=== PATIENT | female | born 1980 | race Caucasian/White ===

== ENCOUNTER 2021-02-13 09:43 | Day surgery (SDC) | payer BC ==
[2021-02-13] MEDS ORDERED: Ringers Lactate 1,000 ML IV ONE (10:21)
[2021-02-13] MEDS ORDERED: VANCOMYCIN 1 GM in NA CHLORIDE 0.9% 250 ML IVPB ONE (11:00)
[2021-02-13] MEDS ORDERED: ROCURONIUM 50 MG/5 ML VIAL IV ONE (12:18)
[2021-02-13] MEDS ORDERED: MIDAZOLAM HCL 2 MG/2 ML INJ ONE (12:18)
[2021-02-13] MEDS ORDERED: propofoL 200 MG/20 ML VIAL IV ONE (12:18)
[2021-02-13] MEDS ORDERED: ONDANSETRON 4 MG/2 ML VIAL ONE (12:18)
[2021-02-13] MEDS ORDERED: dexAMETHasone 10 MG/ML VIAL ONE (12:18)
[2021-02-13] MEDS ORDERED: LIDOCAINE 2% MPF 5 ML VIAL ONE (12:18)
[2021-02-13] MEDS ORDERED: FENTANYL CITR 250 MCG/5 ML ONE (12:18)
[2021-02-13] MEDS ORDERED: ACETAMINOPHEN 500 MG TAB ONE (14:32)
[2021-02-13] MEDS ORDERED: ACETAMINOPHEN 500 MG TAB PO ONE (14:33)
[2021-02-13] MEDS ORDERED: LIDOCAINE 1% W/EPI 1:100,000 MDV 20 ML VIAL ONE (15:13)
[2021-02-13] MEDS ORDERED: GLYCOPYRROLATE 0.2 MG/ML SYR ONE (15:47)
[2021-02-13] MEDS ORDERED: EPHEDRINE SULF 50 MG/ML VIAL ONE (15:52)
[2021-02-13 17:37] VITALS: BP 128/74; TEMP 97.4; O2SAT 98
[2021-02-13] MEDS ORDERED: CODEINE 30MG/APAP 300MG TAB ONE (17:53)
--- NOTE | 2021-02-14 13:57 | OP ---
Date of Procedure: 02/13/2021 Surgeon: CAROL BUCKNER Preoperative Diagnoses: 1.Left upper neck acute lymphadenitis. 2.Chronic Crohn disease. Postoperative Diagnoses: 1.Left upper neck acute lymphadenitis. 2.Chronic Crohn disease. Procedure: Excision of left upper neck level 1 lymph node under general anesthesia. Estimated Blood Loss: Scant, less than 5 mL. Specimens: Large 3.0 x 3.0 cm, level 1 neck lymph node was removed and sent it to pathology per [facility] protocol. Findings: Large left level 1 neck lymph node with friable surrounding blood vessels and tissue. Complications: None. Disposition: Stable. The patient tolerated the procedure well. Indication For Procedure: The patient is a pleasant 40-year-old female, who presented to my outpatie nt clinic with an enlarged left upper neck lymph node. Due to her severe Crohn disease, she is unabl e to take any oral antibiotics and that she develops Clostridium difficile infections with most antib iotics. This lymph node has not decreased in size on its own. Thus, I felt that we needed to excise the lymph node under general anesthesia. I also offered an outpatient fine-needle aspiration biopsy , but the patient adamantly refused as she is a needle phobic and she did not want to be awake for an y part of any procedure. These were indications to bring the patient to operative suite for the abov e-mentioned procedure. She understood. All questions were answered. Risks versus benefits and comp lications were discussed in detail and consent form was signed, which was placed in the chart. Description Of Procedure: The patient was transferred from the preoperative holding area to the oper ative suite by Department of Anesthesia, placed on the operating table supine, and sedated and intuba garo in normal fashion. The left upper neck was marked with a surgical marker. The patient received 1 g of vancomycin preoperatively. I infiltrated approximately 10 mL of 1% lidocaine with 1:100,000 e pinephrine into the left upper neck incision site and the patient was sterilely prepped and draped. An incision was made through the epidermal layer down to the subdermal layer with a #15 blade scalpel and then I switched to a needlepoint electrocautery and continued dissection through a small band of platysma that was visualized. Once through the platysma, a very large lymph node was located. I wa s able to retract it with a John and then I dissected around the lymph node utilizing monopolar an d bipolar electrocautery on the twentieth setting of coagulation. The lymph node was removed and it measured 3.0 x 3.0 cm. The wound defect was approximately 3.5 x 3.5 cm. The wound cavity was irriga garo with saline and then hemostasis was achieved with needlepoint electrocautery. I then reapproxima garo the platysma and subcutaneous tissues with 3-0 Vicryl in an interrupted fashion followed by a sub cuticular layer closure of the epidermis and dermis with a 4-0 Monocryl suture. Steri-Strips and com pressive dressing were placed. The patient tolerated the procedure well. I also applied antibiotic ointment over the incision site. She will be discharged home and will follow up in several days to a ssess wound healing. STACY/REGINO Voice ID: [id number] Report ID: [id number]
== END 2021-02-13 18:12 | disposition home or self-care (01) ==
LOC: OR 09:43
PROVIDERS: ATTEND Otolaryngology Facial Plastic Surgery
PROC: 07T20ZZ Resection of Left Neck Lymphatic, Open Approach (ICD-10-PCS; principal; 2021-02-13 11:00)
DX: L04.0 Acute lymphadenitis of face, head and neck (principal); Z20.822 Contact with and (suspected) exposure to COVID-19
CPT/HCPCS: 38500; 88305; U0002; J2704; J2250; J3010; J3370; J1100; J7120; J7050; J2405

== ENCOUNTER 2021-03-14 04:00 | Emergency (ER) | payer BC ==
--- OUTSIDE RECORDS SUMMARY | 2021-03-14 04:04 | XMS REPORT | Clinical Summary ---
:1980 Author Organization [facility] MD [facility] Address [facility] [place] [address] Care Team Providers Name Role Phone Juwan Guerrero MD Primary Care Provider Allergies Not on File Medications Not on file Active Problems Not on file Encounters Date Type Specialty Care Team Description 03/13/2021 Lab Requisition [facility] MD Witson, Anne S., MD 02/28/2021 Ancillary Procedure Radiology Juwan Guerrero M D Cancer 02/20/2021 Travel after 03/14/2020 Social History Tobacco Use Types Packs/Day Years Used Date Never Assessed Sex Assigned at Date Recorded Female 02/20/2021 6:08 PM [employer] Job Start Date Occupation Industry Not on file Not on file Not on file COVID-19 Exposure Response Date Recorded In the last month, have you been in contact with No / Unsure 02/20/2021 4:00 PM [employer] someone who was confirmed or suspected to have Coronavirus / COVID-19? Last Filed Vital Signs Not on file Plan of Treatment Not on file Procedures Procedure Name Priority Date/Time Associated Diagnosis Comme nts OSI CT SFT TISS Routine 01/30/2021 9:06 AM Cancer Resul ts for this NECK [employer] procedure are i n the results section. after 03/14/[address] Sft Tiss Neck (01/30/2021 9:06 AM [employer]) Specimen Narrative Systemgenerated, Documentation - 021 9:06 AM [employer] Study acquired at another institution. For comparison only. No MD [place] originated interpretation requested or a vailable. after 03/14/2020 Insurance Payer Benefit Plan / Subscriber ID Effective Dates Phone Addre ss Type Group [employer] [facility] [place] P[place] POS [id number] 2020-Present [address] [place] [address] Care Teams Home Theater Specialist Relationship Specialty Start Date End Date Juwan Guerrero MD PCP - General Lymphoma and Myeloma 02/21/21 [facility] [place], [place] [id number]
--- OUTSIDE RECORDS SUMMARY | 2021-03-14 04:06 | XMS REPORT | Continuity of Care Document ---
:1980 Author Organization [facility] t Address [facility] [place] [address] Care Team Providers Name Role Phone [phone] Primary Care Physician Unavailable SYSTEM, NOT IN Attending Clinician Unavailable Marc Hill MD Attending Clinician Jose Alfredo BRYAN S. Attending Clinician HARLAN Attending Clinician Unavailable Ricki Ardon MD Attending Clinician Ricki ARDON Attending Clinician Unavailable VIPUL Attending Clinician Unavailable AGA, W Attending Clinician Unavailable Mariam LEE Attending Clinician Unavailable Mariam Lee MD Attending Clinician LAB90 Attending Clinician Unavailable Harlan BAUTISTAP-C Attending Clinician Job FELIX, T Attending Clinician Unavailable Darien DIRECTOR OF FIELD COORDINATION Attending Clinician Abigail DIRECTOR OF FIELD COORDINATION Attending Clinician ABIGAIL Attending Clinician Unavailable Doctor Unassigned, Name Attending Clinician Unavailable Bernardo DUONG S Attending Clinician Paz DO Attending Clinician NICOLE Attending Clinician Unavailable Lab, Fam Pob I Attending Clinician Unavailable Debra BAUTISTAP Attending Clinician AYO Attending Clinician Unavailable SYLVIA BECKWITH Attending Clinician Unavailable ИРИНА Admitting Clinician Unavailable NICOLE Admitting Clinician Unavailable AYO Admitting Clinician Unavailable SYLVIA BECKWITH Admitting Clinician Unavailable Payers Payer Name Policy Type Policy Number Effective Date Expiration Date S ource [place] - [id number] 2016 OUT OF STATE 00:00:00 BLUE CROSS BLUE [id number] 2020 MD Yan molina [place] P[place] 00:00:00 [id number] 03/2020-PresentPO [place] [facility] [id number] [address] BCBS 2 [id number] 2020 00:00:00 Problems Condition Condition Condition Status Onset Resolution Last Treating Co mments Source Name Details Category Date Date Treatment Clinician Date Depression Depression Disease Active K elsey 4-06 Seybold 00:00: 00 Inflammato Inflammato Disease Active Overview : Karolina ry bowel ry bowel 06-07 Formattin Sey bold disease disease 00:00: g of this 00 note might be different from the original. Chrohns disease since age 14Had [address]Sees Dr. Johana Celestin st colon exam 2019Las Assessmen t & Plan: Formattin g of this note might be different from the original. Controlle d History of History of Disease Active Overview : Karolina total total 4-06 Formattin Seybold abdominal abdominal 00:00: g of this hysterecto hysterecto 00 note my my might be different from the original. Due to endometri osisLast Assessmen t & Plan: Formattin g of this note might be different from the original. Resolved Vitamin D Vitamin D Disease Active Toney sey deficiency deficiency 06-07 Se ybold 00:00: 00 LLQ LLQ Disease Active 2018-03 Univers abdominal abdominal 1-03 ity of pain pain 00:00: [place] [id number] Medical Branch Chills Chills Disease Active 2018-03 Univers 0-03 ity of 00:00: [place] 00 Medical Branch C. C. Disease Active 2018-03 Univers difficile difficile 0-02 ity of diarrhea diarrhea 00:00: [place] [facility] Intractabl Intractabl Disease Active 2018-03 U nivers e vomiting e vomiting 0-01 it y of 00:00: [place] 00 Medical Branch History of History of Disease Active U nivers incisional incisional 6-10 it y of hernia hernia 00:00: [place] repair repair Medical Branch History of History of Disease Active U nivers incisional incisional 6-10 it y of hernia hernia 00:00: [place] repair repair 00 Medical Branch Other Other Disease Active Univers partial partial 6-05 ity of intestinal intestinal 00:[place] obstruct[place] obstructio 00 Me dical n n Branch Other Other Disease Active Univers partial partial 6-05 ity of intestinal intestinal 00:[place] obstruct[place] obstructio 00 Me dical n n Branch Symptomati Symptomati Disease Active Overview : Univers c c 7-27 Formattin ity of cholelithi cholelithi 00:00: g of this [facility] asis 00 note Medical might be Branch different from the original. Added automatic ally from request for surgery [id number] Abdominal Abdominal Disease Active Uni vers pain pain 6-28 ity of 00:00: [place] 00 Medical Branch Crohn Crohn Disease Active Univers disease disease 5-04 ity of 00:00: [place] 00 Medical Branch Generalize Generalize Disease Active U nivers d d 5-04 ity of abdominal abdominal [place] pain pain 00 [place] Exacerbati Exacerbati Disease Active U nivers on of on of 2-20 ity of Crohn's Crohn's 00:00: [place] disease disease 00 Medical Branch Intractabl Intractabl Disease Active U nivers e e 2-12 ity of abdominal abdominal 00:[place] pain pain 00 [place] Obesity Obesity Disease Active Univers (BMI (BMI 2-12 ity of 30-39.9) 30-39.9) 00:00: [place] 00 Medical Branch Morbid Morbid Disease Active Univers obesity obesity 2-01 ity of with body with body 00:[place] mass index mass index 00 Me dical of 50 or of 50 or Branch higher higher Allergies, Adverse Reactions, Alerts Allergy Allergy Status Severity Reaction(s) Onset Inactive Treating Comm ents Source Name Type Date Date Clinician NO KNOWN Drug Active Univers ALLERGIE Class ity of [facility] Social History Social Habit Start Date Stop Date Quantity Comments Source History SDOH Karolina Stuarto ld Alcohol Frequency History CLARIBELOH Karolina polanco Alcohol Std Drinks History SDOH Karolina polanco Alcohol Binge History of Karolina Galicia tobacco use Exposure to Not sure [place] SARS-CoV-2 (event) Alcohol intake 2021-01-25 2021-01-25 Current drinker Laura mills Seybold 00:00:00 00:00:00 of alcohol (finding) Alcohol Comment 2021-01-25 2021-01-25 social Karolina Bales ybold 00:00:00 00:00:00 Tobacco Comment 2021-01-25 2021-01-25 vape Karolina Se ybold 00:00:00 00:00:00 Tobacco use and 2021-01-18 2021-01-18 Smokeless tobacco Ke sonjajarrod Seybold exposure 00:00:00 00:00:00 non-user History SDOH 2018-12-03 2018-12-03 5 University o f Financial 00:00:00 00:00:00 [place] [facility] History SDOH Food 2018-12-03 2018-12-03 1 Univers ity of Worry 00:00:00 00:00:00 [place] [facility] History SDOH Food 2018-12-03 2018-12-03 1 Univers ity of Scarcity 00:00:00 00:00:00 [place] [facility] History SDOH 2018-12-03 2018-12-03 2 University o f Transport Med 00:00:00 00:00:00 [place] [facility] al [facility] History SDOH 2018-12-03 2018-12-03 2 University o f Transport Non-Med 00:00:00 00:00:00 [place] M edical [facility] History SDVT 2018-12-02 2018-12-02 14 University o f Education 00:00:00 00:00:00 [facility] Sex Assigned At [birth year] F MD Christiansen on 00:00:00 00:00:00 Smoking Status Start Date Stop Date Source Smokes tobacco daily 2021-01-18 00:00:00 Karolina Seybold Never smoker [facility] Current some day smoker 2019-01-05 00:00:00 [facility] Medications Ordered Filled Start Stop Current Ordering Indication Dosage Frequency Signature Comments Components Source Medication Medication Date Date Medication? Clinician (SIG) Name Name Ustekinumab 2020-03 Yes Inject Courtney ey (STELARA 1-24 into the Seybold SC) 11:16: skin Every 33 8 Weeks Ustekinumab 2020-03 Yes Inject Courtney ey 45 MG/0.5ML 1-24 into the Seyb old subcutaneou 11:16: skin s Solution 33 Prefilled Syringe Estrogens 2020-03 Yes [id number] Take one Karolina Conjugated 1-24 tablet Seybold (Premarin) 00:00: daily 0.3 MG oral 00 Tablet Ustekinumab 2020-03 Yes Inject Courtney ey 45 MG/0.5ML 1-17 into the Seyb old subcutaneou 10:59: skin s Solution 00 Prefilled Syringe Ustekinumab 2020-03 Yes Inject Courtney ey (STELARA 1-17 into the Seybold SC) 10:57: skin Every 52 8 Weeks hydrOXYzine 2020-03 Yes [id number] 10mg [id number] Take 1 Karolina HCl 10 MG 1-17 [id number] tablet (10 Seybold oral Tablet 00:00: 3D mg total) 00 by mouth 3 times daily as needed for itching or anxiety Fluoxetine 2020-03 Yes [id number] 40mg Take 1 K elsey HCl 40 MG 1-17 capsule Seybold oral 00:00: (40 mg Capsule 00 total) by mouth daily hydrOXYzine 2020-03 Yes [id number] 10mg Q.[id number] Take 1 Karolina HCl 10 MG 1-17 [id number] tablet (10 Seybold oral Tablet 00:00: 3D mg total) 00 by mouth 3 times daily as needed for itching or anxiety Fluoxetine 2020-03 Yes [id number] 40mg Take 1 K elsey HCl 40 MG 1-17 capsule Seybold oral 00:00: (40 mg Capsule 00 total) by mouth daily HYDROcodone 2020- No 1{tbl} 1 tablet, Univers -acetaminop 10-02 Oral, ity of hen (NORCO 07:45: 06:47 ONCE, 1 Gaurang as 5) 5-325 mg 00 :00 dose, Sun Med ical tablet 1 10/02/20 at [place] tablet 0245, LWEIS dicyclomine 2020- No 20mg 20 mg, Uni vers (BENTYL) 10-02 Intramuscu ity of injection 06:45: 05:56 lar, ONCE, [place] 20 mg 00 :00 1 dose, Medical 10/02/20 Branch at 0145, Routine proMETHazin 2020- No 25mg 25 mg, IV Univers e 10-02 Piggyback, ity of (PHENERGAN) 06:45: 06:45 [place]CE, 1 [place] 25 mg in 00 :00 dose, Sun Medica l NaCl 0.9% 10/02/20 at [facility] h (NS) 50 mL 0145, 50 piggyback mL ondansetron 2020- No 4mg 4 mg, Slow Univers (ZOFRAN 10-02 IV Push, ity of (PF)) 05:15: 04:37 ONCE, 1 [place] injection 4 00 :00 dose, Sun Med ical mg 10/02/20 at Branch 0015, LEWIS Ustekinumab Yes inject Univ ers 45 mg/0.5 8-01 under the ity o f mL SC 04:11: skin. [place] injection [address] [place] [address] Ustekinumab Yes inject Univ ers 45 mg/0.5 8-01 under the ity o f mL SC 04:11: skin. [place] injection [address] [place] [address] Ustekinumab Yes inject Univ ers 45 mg/0.5 8-01 under the ity o f mL SC 04:11: skin. [place] injection [address] [place] [address] Ustekinumab Yes inject Univ ers 45 mg/0.5 8-01 under the ity o f mL SC 04:11: skin. [place] injection [address] [place] [address] Ustekinumab Yes inject Univ ers 45 mg/0.5 8-01 under the ity o f mL SC 04:11: skin. [place] injection [address] [place] [address] Ustekinumab Yes inject Univ ers 45 mg/0.5 8-01 under the ity o f mL SC 04:11: skin. [place] injection 16 Medical Branch proMETHazin Yes [id number] 25mg Take 1 Univers e 25 mg 8-01 tablet by ity of tablet 00:00: mouth [place] 00 every 6 Medical (six) Branch hours as needed for N/V unresponsi ve to Ondansetro n. proMETHazin Yes [id number] 25mg Take 1 Univers e 25 mg 8-01 tablet by ity of tablet 00:00: mouth [place] 00 every 6 Medical (six) Branch hours as needed for N/V unresponsi ve to Ondansetro n. proMETHazin Yes [id number] 25mg Take 1 Univers e 25 mg 8-01 tablet by ity of tablet 00:00: mouth [place] 00 every 6 Medical (six) Branch hours as needed for N/V unresponsi ve to Ondansetro n. proMETHazin Yes [id number] 25mg Take 1 Univers e 25 mg 8-01 tablet by ity of tablet 00:00: mouth [place] 00 every 6 Medical (six) Branch hours as needed for N/V unresponsi ve to Ondansetro n. proMETHazin Yes [id number] 25mg Take 1 Univers e 25 mg 8-01 tablet by ity of tablet 00:00: mouth [place] 00 every 6 Medical (six) Branch hours as needed for N/V unresponsi ve to Ondansetro n. proMETHazin Yes [id number] 25mg Take 1 Univers e 25 mg 8-01 tablet by ity of tablet 00:00: mouth [place] 00 every 6 Medical (six) Branch hours as needed for N/V unresponsi ve to Ondansetro n. Promethazin Yes 25mg Q6H Take 25 mg Karolina e HCl 25 MG 8-01 by mouth Seyb old oral Tablet 00:00: every 6 00 hours as needed Promethazin 0 Yes 25mg Q6H Take 25 mg Karolina e HCl 25 MG 8-01 by mouth Seyb old oral Tablet 00:00: every 6 00 hours as needed ondansetron 2020-0 2020- No 4mg 4 mg, Slow Univers (ZOFRAN 5-19 05-18 IV Push, ity of (PF)) 00:15: 23:18 ONCE, 1 [place] injection 4 00 :00 dose, Tue Med ical mg 07/19/20 at Branch 1915, Routine morpHINE No 4mg 4 mg, Slow Un alf injection 4 07-20 05-18 IV Push, ity of mg 00:15: 23:18 ONCE, 1 [place] 00 :00 dose, Tue Medical 07/19/20 at Branch 1915, STAT NaCl 0.9% 2020- No 500mL at 999 Univ ers (NS) bolus 18 05-18 mL/hr, 500 it y of infusion 22:30: 23:18 mL, IV [place] 500 mL 00 :00 Infusion, Medical ONCE, 1 Branch dose, 07/19/20 at 1730, STAT ondansetron 0 Yes [id number] 4mg Take 1 Univers (ZOFRAN 5-18 tablet by ity of ODT) 4 mg 00:00: mouth [place] disintegrat 00 every 8 Medic al ing tablet (eight) Branch hours as needed for Nausea and Vomiting (N/V). ondansetron Yes [id number] 4mg Take 1 Univers (ZOFRAN 5-18 tablet by ity of ODT) 4 mg 00:00: mouth [place] disintegrat 00 every 8 Medic al ing tablet (eight) Branch hours as needed for Nausea and Vomiting (N/V). ondansetron 0 Yes [id number] 4mg Take 1 Univers (ZOFRAN 5-18 tablet by ity of ODT) 4 mg 00:00: mouth [place] disintegrat 00 every 8 Medic al ing tablet (eight) Branch hours as needed for Nausea and Vomiting (N/V). ondansetron 2020-0 Yes [id number] 4mg Take 1 Univers (ZOFRAN 5-18 tablet by ity of ODT) 4 mg 00:00: mouth [place] disintegrat 00 every 8 Medic al ing tablet (eight) Branch hours as needed for Nausea and Vomiting (N/V). ondansetron 2020-0 Yes [id number] 4mg Take 1 Univers (ZOFRAN 5-18 tablet by ity of ODT) 4 mg 00:00: mouth [place] disintegrat 00 every 8 Medic al ing tablet (eight) Branch hours as needed for Nausea and Vomiting (N/V). ondansetron 2021-0 Yes [id number] 4mg Take 1 Univers (ZOFRAN 5-18 tablet by ity of ODT) 4 mg 00:00: mouth [place] disintegrat 00 every 8 Medic al ing tablet (eight) Branch hours as needed for Nausea and Vomiting (N/V). ondansetron 2021-0 Yes [id number] 4mg Take 1 Univers (ZOFRAN 5-18 tablet by ity of ODT) 4 mg 00:00: mouth [place] disintegrat 00 every 8 Medic al ing tablet (eight) Branch hours as needed for Nausea and Vomiting (N/V). Ondansetron 2020-0 Yes 4mg Q8H Take 4 mg K elsey (ZOFRAN) 4 5-18 by mouth Seybo ld MG oral 00:00: every 8 TABLET 00 hours as DISPERSIBLE needed Ondansetron 2020-0 Yes 4mg Q8H Take 4 mg K elsey (ZOFRAN) 4 5-18 by mouth Seybo ld MG oral 00:00: every 8 TABLET 00 hours as DISPERSIBLE needed FLUoxetine 2020-0 Yes 20mg Take 20 mg U nivers 20 mg 4-06 by mouth. ity of capsule 00:00: [place] [facility] FLUoxetine 2020-0 Yes 20mg Take 20 mg U nivers 20 mg 4-06 by mouth. ity of capsule 00:00: [place] [facility] FLUoxetine 202-0 Yes 20mg Take 20 mg U nivers 20 mg 4-06 by mouth. ity of capsule 00:00: [place] [facility] FLUoxetine 2021-0 Yes 20mg Take 20 mg U nivers 20 mg 4-06 by mouth. ity of capsule 00:00: [place] [facility] FLUoxetine 2021-0 Yes 20mg Take 20 mg U nivers 20 mg 4-06 by mouth. ity of capsule 00:00: [place] [facility] FLUoxetine 2021-0 Yes 20mg Take 20 mg U nivers 20 mg 4-06 by mouth. ity of capsule 00:00: [place] [facility] Fluoxetine 2021-0 Yes [id number] 20mg Take 1 K elsey HCl 20 MG 4-06 capsule Seybold oral 00:00: (20 mg Capsule 00 total) by mouth daily Fluoxetine 202-0 Yes 20mg Take 20 mg K elsey HCl 20 MG 4-06 by mouth Seybol d oral 00:00: Capsule 00 Fluoxetine Yes [id number] 20mg Take 1 K elsey HCl 20 MG 4-06 capsule Seybold oral 00:00: (20 mg Capsule 00 total) by mouth daily Fluoxetine Yes 20mg Take 20 mg K elsey HCl 20 MG 4-06 by mouth Seybol d oral 00:00: Capsule 00 lactobacill 2019-0 Yes [id number] 1{tbl} Take 1 Univers us 5-30 tablet by ity of acidophilus 00:00: mouth 2 Gaurang as 25 million 00 (two) Medical cell -100 times Branch mg captab daily. lactobacill 2019- Yes [id number] 1{tbl} Take 1 Univers us 5-30 tablet by ity of acidophilus 00:00: mouth 2 Gaur[place] as 25 million 00 (two) Medical cell -100 times Branch mg captab daily. lactobacill Yes [id number] 1{tbl} Take 1 Univers us 5-30 tablet by ity of acidophilus 00:00: mouth 2 [place]aur[place] as 25 million 00 (two) Medical cell -100 times Branch mg captab daily. lactobacill 2020- No [id number] 1{tbl} Take 1 Univers us 5-30 07-31 tablet by ity of acidophilus 00:00: 00:00 mouth 2 [place] 25 million 00 :00 (two) Medical cell -100 times Branch mg captab daily. ondansetron 2020- No 4mg 4 mg, Slow Univers (ZOFRAN 03-29 IV Push, ity of (PF)) 03:15: 02:25 ONCE, 1 [place] injection 4 00 :00 dose, Sat Med ical mg 03/28/19 at Branch 2114, LEWIS morpHINE 2020- No 4mg 4 mg, Slow Un alf injection 4 03-29 IV Push, ity of mg 03:15: 02:07 ONCE, 1 [place] 00 :00 dose, Sat Medical 03/28/19 at Branch 2114, STAT diphenhydrA 2020- No 25mg 25 mg, Uni vers MINE 03-29 Slow IV ity of (BENADRYL) 03:15: 02:25 Push, [place] injection 00 :00 ONCE, 1 Medical 25 mg dose, Sat [place] 03/28/19 at 2114, STAT iohexol 2019-0 2020- No 120mL 120 mL, Unive rs (OMNIPAQUE 03-29 Intravenou it y of 350 02:45: 02:32 s, ONCE, 1 [place] BULK-100 00 :00 dose, Sat Medica l mL) 03/28/19 at [place] injection 2044, 120 mL Routine ondansetron 2020- No 4mg 4 mg, Slow Univers (ZOFRAN 03-29 IV Push, ity of (PF)) 02:15: 01:11 ONCE, 1 [place] injection 4 00 :00 dose, Sat Med ical mg 03/28/19 at [place] 2014, LEWIS morpHINE 2019-0 2019- No 4mg 4 mg, Slow Un alf injection 4 03-29 IV Push, ity of mg 02:15: 01:11 ONCE, 1 [place] 00 :00 dose, Sat Medical 03/28/19 at Branch 2014, STAT traMADol 50 2020-0 Yes [id number] 50mg Take 1 Univers mg tablet 1-25 tablet by ity o f 00:00: mouth [place] 00 every 6 Medical (six) Branch hours as needed for Pain (scale 4-6). ondansetron 2020-0 Yes [id number] 8mg Take 1 Univers (ZOFRAN 1-25 tablet by ity of ODT) 8 mg 00:00: mouth [place] disintegrat 00 every 8 Medic al ing tablet (eight) Branch hours as needed for Nausea and Vomiting (N/V). traMADol 50 2020-0 Yes [id number] 50mg Take 1 Univers mg tablet 1-25 tablet by ity o f 00:00: mouth [place] 00 every 6 Medical (six) Branch hours as needed for Pain (scale 4-6). ondansetron 2020-0 Yes [id number] 8mg Take 1 Univers (ZOFRAN 1-25 tablet by ity of ODT) 8 mg 00:00: mouth [place] disintegrat 00 every 8 Medic al ing tablet (eight) Branch hours as needed for Nausea and Vomiting (N/V). traMADol 50 2020-0 Yes [id number] 50mg Take 1 Univers mg tablet 1-25 tablet by ity o f 00:00: mouth [place] 00 every 6 Medical (six) Branch hours as needed for Pain (scale 4-6). ondansetron 2019-0 Yes [id number] 8mg Take 1 Univers (ZOFRAN 1-25 tablet by ity of ODT) 8 mg 00:00: mouth [place] disintegrat 00 every 8 Medic al ing tablet (eight) Branch hours as needed for Nausea and Vomiting (N/V). traMADol 50 2019- Yes [id number] 50mg Take 1 Univers mg tablet 1-25 tablet by ity o f 00:00: mouth [place] 00 every 6 Medical (six) Branch hours as needed for Pain (scale 4-6). traMADol 50 2019-0 2020- No [id number] 50mg Take 1 Univers mg tablet 1-25 07-31 tablet by ity of 00:00: 00:00 mouth [place] 00 :00 every 6 Medical (six) Branch hours as needed for Pain (scale 4-6). ondansetron 2020- No [id number] 8mg Take 1 Univers (ZOFRAN 1-25 05-18 tablet by ity of ODT) 8 mg 00:00: 00:00 mouth [place] disintegrat 00 :00 every 8 Medic al ing tablet (eight) Branch hours as needed for Nausea and Vomiting (N/V). Immunizations Ordered Immunization Filled Immunization Date Status Commen ts Source Name Name Influenza Virus 2020-06-07 Completed Karolina lee Vaccine, No Preserv, 00:00:00 age 6 months and up Tdap- (Boostrix, 2020-06-07 Completed Karolina hansen Adacel) 00:00:00 Influenza Virus 2020-06-07 Completed Karolina lee Vaccine, No Preserv, 00:00:00 age 6 months and up Tdap- (Boostrix, 2020-06-07 Completed Karolina hansen Adacel) 00:00:00 Influenza, Seasonal, 2014-02-17 Completed Courtney Galicia Injectable, 00:00:00 Preservative Free Influenza, Seasonal, 2014-02-17 Completed Courtney Galicia Injectable, 00:00:00 Preservative Free Hepatitis B, Adult 2010-12-20 Completed Karolina Galicia (3 dose) 00:00:00 MMR- Measles, Mumps, 2010-12-20 Completed Courtney Galicia Rubella 00:00:00 Hepatitis B, Adult 2010-12-20 Completed Karolina Seybold (3 dose) 00:00:00 MMR- Measles, Mumps, 2010-12-20 Completed Courtney ey Seybold Rubella 00:00:00 Hepatitis B, Adult 2010-12-20 Completed Karolina Seybold (3 dose) 00:00:00 MMR- Measles, Mumps, 2010-12-20 Completed Courtney ey Seybold Rubella 00:00:00 Hepatitis B, Adult 2010-12-20 Completed Karolina Seybold (3 dose) 00:00:00 MMR- Measles, Mumps, 2010-12-20 Completed Courtney ey Seybold Rubella 00:00:00 Hepatitis B, Adult 2010-11-20 Completed Karolina Seybold (3 dose) 00:00:00 MMR- Measles, Mumps, 2010-11-20 Completed Courtney ey Seybold Rubella 00:00:00 HEPATITIS A- ADULT 2010-11-20 Completed Karolina Seybold 00:00:00 Tdap- (Boostrix, 2010-11-20 Completed Karolina S eybold Adacel) 00:00:00 Hepatitis B, Adult 2010-11-20 Completed Karolina Seybold (3 dose) 00:00:00 MMR- Measles, Mumps, 2010-11-20 Completed Courtney ey Seybold Rubella 00:00:00 Hepatitis B, Adult 2010-11-20 Completed Karolina Seybold (3 dose) 00:00:00 MMR- Measles, Mumps, 2010-11-20 Completed Courtney ey Seybold Rubella 00:00:00 HEPATITIS A- ADULT 2010-11-20 Completed Karolina Seybold 00:00:00 Tdap- (Boostrix, 2010-11-20 Completed Karolina S eybold Adacel) 00:00:00 Hepatitis B, Adult 2010-11-20 Completed Karolina Seybold (3 dose) 00:00:00 MMR- Measles, Mumps, 2010-11-20 Completed Courtney ey Seybold Rubella 00:00:00 History Of Chicken 1983-03-04 Completed Karolina Seybold Pox 00:00:00 History Of Chicken 1983-03-04 Completed Karolina Seybold Pox 00:00:00 Vital Signs Vital Name Observation Time Observation Value Comments Source Respiratory rate 2021-01-25 17:11:00 16 /min Courtney garay Seybold Body height 2021-01-25 17:11:00 157.5 cm Karolina Walsh eybold Body weight 2021-01-25 17:11:00 91.173 kg Karolina Walsh eybold BMI 2021-01-25 17:11:00 36.76 kg/m2 Karolina S eybold Oxygen saturation in 2021-01-25 17:11:00 98 /min Karolina Balesybold Arterial blood by Pulse oximetry Systolic blood 2021-01-25 17:11:00 128 mm[Hg] Karolina Seybold pressure Diastolic blood 2021-01-25 17:11:00 70 mm[Hg] Kelse y Seybold pressure Heart rate 2021-01-25 17:11:00 82 /min Karolina S eybold Systolic blood 2021-01-18 16:52:00 126 mm[Hg] Karolina Seybold pressure Diastolic blood 2021-01-18 16:52:00 74 mm[Hg] Kelse y Seybold pressure Heart rate 2021-01-18 16:52:00 80 /min Karolina Walsh eybold Body temperature 2021-01-18 16:52:00 36.5 Zulma Courtney garay Seybold Respiratory rate 2021-01-18 16:52:00 14 /min Courtney garay Seybold Body height 2021-01-18 16:52:00 157.5 cm Karolina Walsh eybold Body weight 2021-01-18 16:52:00 91.173 kg Karolina Walsh eybold BMI 2021-01-18 16:52:00 36.76 kg/m2 Karolina S eybold Systolic blood 2020-11-02 17:28:00 117 mm[Hg] Univer sity of [facility] Diastolic blood 2020-11-02 17:28:00 75 mm[Hg] Unive rsity of [facility] Heart rate 2020-11-02 17:28:00 80 /min [facility] Respiratory rate 2020-11-02 17:28:00 20 /[facility] 2020-11-02 17:28:00 157.5 cm [facility] Body weight 2020-11-02 17:28:00 90.719 kg [facility] [place] [facility] BMI 2020-11-02 17:28:00 36.58 kg/m2 [facility] [place] [facility] Oxygen saturation in 2020-11-02 17:28:00 99 /min University of Arterial blood by [facility] Pulse oximetry Branch Systolic blood 2020-10-02 04:23:00 124 mm[Hg] Univer sity of pressure [place] [facility] Diastolic blood 2020-10-02 04:23:00 86 mm[Hg] Unive rsity of pressure [place] [facility] Heart rate 2020-10-02 04:23:00 76 /min [facility] [place] [facility] Respiratory rate 2020-10-02 04:23:00 17 /min Univ ersity of [place] [facility] Oxygen saturation in 2020-10-02 04:23:00 96 /min University of Arterial blood by [facility] Pulse oximetry Branch Body temperature 2020-10-02 03:27:00 37.11 Zulma Univ ersity of [place] [facility] Body height 2020-10-02 03:27:00 157.5 cm [facility] [place] [facility] Body weight 2020-10-02 03:27:00 91.173 kg [facility] [place] [facility] BMI 2020-10-02 03:27:00 36.76 kg/m2 [facility] [place] [facility] Systolic blood 2020-07-20 00:00:00 144 mm[Hg] Univer sity of pressure [place] [facility] Diastolic blood 2020-07-20 00:00:00 90 mm[Hg] Unive rsity of pressure [place] [facility] Heart rate 2020-07-20 00:00:00 69 /min [facility] [place] [facility] Respiratory rate 2020-07-20 00:00:00 18 /min Univ ersity [facility] [place] [facility] Oxygen saturation in 2020-07-20 00:00:00 95 /min University of Arterial blood by [facility] Pulse oximetry Branch Body temperature 2020-07-19 21:57:00 37.22 Zulma Univ ersity of [place] [facility] Body weight 2020-07-19 21:57:00 99.338 kg Universi ty of [facility] BMI 2020-07-19 21:57:00 40.06 kg/m2 [facility] Systolic blood 2019-03-29 03:00:00 112 mm[Hg] [facility]iver [facility] of pressure [facility] Diastolic blood 2019-03-29 03:00:00 66 mm[Hg] [facility] Heart rate 2019-03-29 03:00:00 76 /min [facility] Respiratory rate 2019-03-29 03:00:00 16 /min [facility] Oxygen saturation in 2019-03-29 03:00:00 98 /min [facility] Arterial blood by [facility] Pulse oximetry [place] Body temperature 2019-03-29 00:03:00 36.39 Zulma [facility] Body height 2019-03-29 00:03:00 157.5 cm [facility] Body weight 2019-03-29 00:03:00 99.791 kg [facility] BMI 2019-03-29 00:03:00 40.24 kg/m2 [facility] Procedures Procedure Date / Time Performing Clinician Source Performed OSI CT SFT TISS NECK 2021-01-30 15:06:00 Juwan Ardon MD [facility]erson ASSIGNMENT OF BENEFITS 2020-11-02 16:11:47 Doctor Unassigned, No [facility] Name [facility] Branch LIPASE 2020-10-02 04:35:00 Jose Rodriguez [facility] COMP. METABOLIC PANEL 2020-10-02 04:35:00 Jose Rodriguez [facility] ([id number]) [facility] CBC WITH DIFF 2020-10-02 04:35:00 Jose Rodriguez [facility] URINALYSIS 2020-10-02 04:32:00 Jose Rodriguez [facility] CONSENT/REFUSAL FOR 2020-10-02 03:12:32 Doctor Unassigned, No [facility] DIAGNOSIS AND TREATMENT Name [facility] COVID-19 (ID NOW RAPID 2020-07-20 00:02:00 Zen Paz [facility] TESTING) Medical Branch LIPASE 2020-07-19 22:26:00 Zen Paz [facility] COMP. METABOLIC PANEL 2020-07-19 22:26:00 Zen Paz [facility] ([id number]) [facility] CBC WITH DIFF 2020-07-19 22:26:00 Paz, [facility] URINALYSIS 2020-07-19 22:26:00 [place] [facility] NOTICE OF PRIVACY 2020-07-19 21:38:41 Doctor Unassigned, No Univ ersity [facility] CONSENT/REFUSAL FOR 2020-07-19 21:37:52 Doctor Unassigned, No Un iversity [facility] DIAGNOSIS AND TREATMENT Name [facility] CT ABDOMEN PELVIS W 2019-03-29 02:36:34 Jose Rodriguez [facility] CONTRAST [facility] POCT TEST 2019-03-29 00:48:00 Jose Rodriguez [facility] LIPASE 2019-03-29 00:47:00 Jose Rodriguez [facility] COMP. METABOLIC PANEL 2019-03-29 00:47:00 Jose Rodriguez [facility] ([id number]) [facility] CBC WITH DIFFERENTIAL 2019-03-29 00:47:00 Jose Rodriguez [facility] URINALYSIS 2019-03-29 00:47:00 Jose Rodriguez [facility] NOTICE OF PRIVACY 2019-03-28 23:58:28 Doctor Unassigned, No Univ ersity [facility] CONSENT/REFUSAL FOR 2019-03-28 23:55:31 Doctor Unassigned, No [facility] [place] DIAGNOSIS AND TREATMENT [facility] Encounters Start End Encounter Admission Attending Care Care Encounter Source Date/Time Date/Time Type Type Clinicians Facility Department ID 2021-02-21 Outpatient SYSTEM, [facility] [id number] 16:13:12 PROVIDER Kuldip o n 2021-01-02 Emergency [facility] [id number] Univers 12:14:09 ity [facility] 2021-01-01 Emergency X [facility] ERT [id number] [facility]01 Emergency [facility] [id number] [facility] 2021-03-01 2021-03-01 Outpatient KAROLINA CLAROS [id number] Karolina 00:00:00 00:00:00 ANNABELLA Seybol d 2021-02-28 2021-02-28 Outpatient ERIC REVA CUCA THURMAN [id number] 09:05:06 09:05:06 JUWAN Christiansen isaias guidry 2021-02-09 2021-02-09 Outpatient SATNAM KAROLINA MOORE [id number] Karolina 00:00:00 00:00:00 MD RILEY Seybol d 2021-02-07 2021-02-07 Outpatient KAROLINA MOORE [id number] Karolina 09:50:00 09:50:00 Seybol d 2021-02-07 2021-02-07 Outpatient ESTRELLA PARMAR [id number] Karolina 00:00:00 00:00:00 Seybol d 2021-02-06 2021-02-06 Outpatient ESTRELLA PARMAR [id number] Karolina 00:00:00 00:00:00 Seybol d 2021-02-01 2021-02-01 Outpatient KAROLINA MOORE [id number] Karolina 12:40:00 12:40:00 Seybol d 2021-01-30 2021-01-30 Outpatient KAROLINA LEE [id number] Karolina 00:00:00 00:00:00 EUGENIA Seybol d 2021-01-25 2021-01-25 Office JEAN Lee [id number] Karolina 11:30:00 12:00:00 Visit Eugenia Becerra 350.1.13.13 Seybfreedom 1.2.7.2.686 [id number] 2021-01-20 2021-01-20 Outpatient KAROLINA CLAROS [id number] Karolina 00:00:00 00:00:00 ANNABELLA Seybol d 2021-01-18 2021-01-18 Outpatient LAB90 KAROLINA MOORE [id number] Karolina 11:55:00 11:55:00 Seybol d 2021-01-18 2021-01-18 Office Myron Claros [id number] Karolina 10:49:52 11:19:52 Visit Annabella Weaver 350.1.13.13 Se rosa 1.2.7.2.686 [id number] 2020-11-04 2020-11-04 Letter ROBERTA Kaiser 1.2.840.114 [id number] Univers 00:00:00 00:00:00 (Out) Yajaira Gramajo JEAN MARIE 350.1.13.10 it y of [facility] 4.2.7.2.686 Gaurang as [id number] [facility] 019 Branch 2020-11-02 2020-11-02 Urgent Nasreen Ledezma [facility] [id number] Univers 11:13:05 11:33:05 Care Abigail [facility] [id number] ity of [place] 4.2.7.2.686 Gaurang as Bebo?Blea [id number] [address] Medical Office Building 2020-11-02 2020-11-02 Outpatient R [facility] [id number] Univers 11:20:00 11:20:00 [id number] ity of [facility] 2020-11-02 2020-11-02 Outpatient R [facility] [id number] Univers 11:20:00 11:20:00 RANDY georgette o f [facility] 2020-11-02 2020-11-02 Orders Doctor GRANADOS 1.2.840.114 [id number] Univers 00:00:00 00:00:00 Only Unassigned, JEAN MARIE 350.1.13.10 ity of [employer] [facility] 4.2.7.2.686 Gaurang as [id number] [facility] 009 Branch 2020-10-01 2020-10-02 [facility] [id number] Univers 22:30:00 01:56:00 Jose Pereira 350.1.13.10 i [place] [id number] [facility] 084 Branch 2020-07-19 2020-07-19 Emergency Singer [facility] [id number] Univers 16:54:00 19:37:00 Zen Pereira 350.1.13.10 i ty [place] [facility] [id number] [facility] 084 Branch 2020-07-19 2020-07-19 Orders Doctor ROBERTA 1.2.840.114 [id number] Univers 00:00:00 00:00:00 Only Unassigned, JEAN MARIE 350.1.13.10 [facility] 4.2.7.2.686 Gaurang as [id number] [facility] 009 Branch 2020-06-07 2020-06-07 Outpatient LAB90 KAROLINA MOORE [id number] Karolina 10:00:00 10:00:00 Seybol d 2020-06-07 2020-06-07 Outpatient AGATA ESTRELLARicki MOORE [id number] Karolina 08:30:00 08:30:00 Seybol d 2020-02-04 2020-02-05 Inpatient E NICOLE, [facility] MED [id number] 11:00:00 16:58:00 JOSEPH 2019-09-11 2019-09-11 Laboratory Lab, [facility] I [facility] 1.2. 840.114 [id number] Univers 14:09:42 14:29:42 Only Debra Savana Young 350.1.13.10 ity of [place] 4.2.7.2.686 Gaurang as Professio [id number] [address] Office Building One 2019-09-11 2019-09-11 Outpatient R [facility] [id number] Univers 14:20:00 14:20:00 [id number] ity [facility] 2019-09-11 2019-09-11 Outpatient R [facility] [id number] Univers 14:20:00 14:20:00 ity [facility] 2019-07-29 2019-08-01 Outpatient X AYO [facility] [id number] Univers 14:08:13 12:04:00 MACK ity [facility] 2019-03-28 2019-03-28 [facility] [id number] Univers 18:12:42 22:01:00 Jose Nico Pereira 350.1.13.10 i ty of [place] 4.2.7.2.686 [facility] [id number] [facility] 084 Branch Results Test Description Test Time Test Comments Results Result Comments Source COMP. METABOLIC PANEL (27082) 2020-10-02 04:58:30 Test Item Value Reference Range Interpretation Comme nts NA (test code = 9617876170) 138 mmol/L 135-145 K (test code = 1401743499) 3.9 mmol/L 3.5-5.0 CL (test code = 9649436562) 102 mmol/L 98-108 CO2 TOTAL (test code = 5859290337) 25 mmol/L 23-31 AGAP (test code = 1418250468) 2-16 BUN (test code = 1613403196) 20 mg/dL 7-23 GLUCOSE (test code = 6909545869) 96 mg/dL 70-110 CREATININE (test code = 0.56 mg/dL 0.50-1.04 2138633230) TOTAL BILI (test code = 0.8 mg/dL 0.1-1.1 6759958220) CALCIUM (test code = 8607761571) 10.2 mg/dL 8.6-10.6 T PROTEIN (test code = 4161843565) 8.8 g/dL 6.3-8.2 H ALBUMIN (test code = 9790999456) 4.7 g/dL 3.5-5.0 ALK PHOS (test code = 1646204128) 99 U/L 34-122 ALTv (test code = 1742-6) 38 U/L 5-35 H AST(SGOT) (test code = 9741245611) 31 U/L 13-40 eGFR (test code = 9985684122) mL/min/1.73m2 SCOTT (test code = SCOTT) Association of Glomerular Filtration Rate (GFR) and Staging of Kidney Disease* + +-------- + ------+| GFR (mL/min/1.73 m2) ?| With Kidney Damage ?| ?Without Kidney Damage+ +-- + +| ?>90 ?| ?Stage one ?| ? Normal ?+ +------- + -------+| ?60-89 ?| ?Stage two ?| ? Decreased GFR ? + +-------- + ------+| ?30-59 ?| ?Stage three ?| ? Stage three ? + +-------- + ------+| ?15-29 ?| ?Stage four ? | ? Stage four ?+ +------- + -------+| ?<15 (or dialysis) ? ?| ?Stage five ? | ? Stage five ?+ +------- + -------+ *Each stage assumes the associated GFR level has been in effect for at least three months. ?Stages 1 to 5, with or without kidney disease, indicate chronic kidney disease. Notes: Determination of stages one and two (with eGFR >59mL/min/1.73 m2) requires estimation of kidney damage for at least three months as defined by structural or functional abnormalities of the kidney, manifested by either:Pathological abnormalities or Markers of kidney damage (including abnormalities in the composition of the blood or urine or abnormalities in imaging tests). Lab Interpretation (test code = Abnormal 13676-7) [facility] 04:57:30 Test Item Value Reference Range Interpretation Comments LIPASE (test code = 8868320930) 243 U/L 0-220 H Lab Interpretation (test code = Abnormal 51397-5) [facility] 04:51:44 Test Item Value Reference Range Interpretation Comments APPEARANCE (test code = Clear Clear 2806518057) COLOR (test code = Yellow Yellow 4730203034) PH (test code = 4.8-8.0 3921478615) SP GRAVITY (test code = 1.003-1.030 4776278067) GLU U QUAL (test code = Normal Normal 4074248039) BLOOD (test code = Negative Negative 0842057415) KETONES (test code = Negative Negative 9012453234) PROTEIN (test code = Negative Negative 2887-8) UROBILIN (test code = Normal Normal 1536699681) BILIRUBIN (test code = Negative Negative 3715456014) NITRITE (test code = Negative Negative 4277626102) LEUK BAILEY (test code = Negative Negative 3752239817) RBC/HPF (test code = See_Comment [Autom ated message] 2441788515) The system [employer] generated this result transmitted ref erence range: 0 - 3 HP F. The reference range was not used to int erpret this result as normal/abnormal . WBC/HPF (test code = See_Comment [Autom ated message] 5819830943) The system [employer] generated this result transmitted ref erence range: 0 - 5 HP F. The reference range was not used to int erpret this result as normal/abnormal . BACTERIA (test code = Negative Negative 0215941959) MUCOUS (test code = Slight Negative LPF A 2661287856) SQ EPITH (test code = HPF 4313665850) Lab Interpretation (test Abnormal code = 16185-8) [facility] WITH [id number] 04:45:31 Test Item Value Reference Range Interpretation Comments WBC (test code = See_Comment [Automated 6690-2) message] The sy stem which generated this result transmitted reference range : 4.30 - 11.10 10*3/?L. The reference range was not used to interpret this result as normal/abnormal . RBC (test code = See_Comment [Automated 789-8) message] The sy stem which generated this result transmitted reference range : 3.93 - 5.25 10*6/?L. The reference range was not used to interpret this result as normal/abnormal . HGB (test code = 13.3 g/dL 11.6-15.0 718-7) HCT (test code = 39.5 % 35.7-45.2 4544-3) MCV (test code = 82.8 fL 80.6-95.5 787-2) MCH (test code = 27.9 pg 25.9-32.8 785-6) MCHC (test code = 33.7 g/dL 31.6-35.1 786-4) RDW-SD (test code = 38.7 fL 39.0-49.9 L 78519-9) RDW-CV (test code = 12.9 % 12.0-15.5 788-0) PLT (test code = See_Comment [Automated 777-3) message] The sy stem which generated this result transmitted reference range : 166 - 358 10*3/ ?L. The reference r lenard was not used to interpret this result as normal/abnormal . MPV (test code = 9.4 fL 9.5-12.9 L 19637-8) NRBC/100 WBC (test See_Comment [Automat ed code = 3724806349) message] The system which generated this result transmitted reference range : 0.0 - 10.0 /100 WBCs. The refer ence range was not u sed to interpret th is result as normal/abnormal . NRBC x10^3 (test code <0.01 See_Comment [Auto mated = 4216553219) message] The s ystem which generated this result transmitted reference range : 10*3/?L. The reference range was not used to interpret this result as normal/abnormal . GRAN MAT (NEUT) % 52.7 % (test code = 770-8) IMM GRAN % (test code 0.20 % = 9319176355) LYMPH % (test code = 38.2 % 736-9) MONO % (test code = 7.6 % 5905-5) EOS % (test code = 1.0 % 713-8) BASO % (test code = 0.3 % 706-2) GRAN MAT x10^3(ANC) 3.33 10*3/uL 1.88-7.09 (test code = 3285701802) IMM GRAN x10^3 (test <0.03 0.00-0.06 code = 5077147150) LYMPH x10^3 (test code 2.41 10*3/uL 1.32-3.29 = 731-0) MONO x10^3 (test code 0.48 10*3/uL 0.33-0.92 = 742-7) EOS x10^3 (test code = 0.06 10*3/uL 0.03-0.39 711-2) BASO x10^3 (test code <0.03 0.01-0.07 = 704-7) Lab Interpretation Abnormal (test code = 84454-4) [facility] (ID NOW RAPID TESTING)2020-07-20 00:25:44 Test Item Value Reference Range Interpretation Comments SARS-CoV-2 Rapid ID NOW Not Detected Not Detected (test code = 20746-5) SCOTT (test code = SCOTT) ID NOW COVID-19 Assay is an isothermal nucleic acid amplification test intended for the qualitative detection of nucleic acid from SARS-CoV-2 viral RNA in nasopharyngeal ([employer]) specimens. It is used under Emergency Use Authorization (EUA) by FDA. The limit of detection (LOD) of the assay is 125 Genome Equivalents/mL. A positive result is indicative of the presence of SARS-CoV-2 RNA. ?Clinical correlation with patient history and other diagnostic information is necessary to determine patient infection status. A negative (Not Detected) result does not preclude SARS-CoV-2 infection. In patients with clinical symptoms and other tests that are consistent with SARS-CoV-2 infection, negative results should be treated as presumptive negative and a new specimen should be tested with alternative PCR molecular test. Invalid: Please collect a new specimen for repeat patient testing if clinically indicated. Lab Interpretation Normal (test code = 20430-5) [facility]. METABOLIC PANEL (19085)2020-07-19 22:47:37 Test Item Value Reference Range Interpretation Comments NA (test code = 139 mmol/L 135-145 8023416442) K (test code = 3.6 mmol/L 3.5-5.0 8312858632) CL (test code = 103 mmol/L 98-108 2237000109) CO2 TOTAL (test code = 27 mmol/L 23-31 9896418480) AGAP (test code = 2-16 1949641557) BUN (test code = 18 mg/dL 7-23 3619160323) GLUCOSE (test code = 98 mg/dL 70-110 6336881631) CREATININE (test code = 0.78 mg/dL 0.50-1.04 3870683322) TOTAL BILI (test code = 0.7 mg/dL 0.1-1.4 1927067933) CALCIUM (test code = 9.9 mg/dL 8.6-10.6 3563820704) T PROTEIN (test code = 7.4 g/dL 6.3-8.2 0582287093) ALBUMIN (test code = 4.3 g/dL 3.5-5.0 4034732290) ALK PHOS (test code = 97 U/L 34-122 8773385886) ALTv (test code = 39 U/L 5-35 H 1742-6) AST(SGOT) (test code = 32 U/L 13-40 7026919184) eGFR (test code = mL/min/1.73m2 1172756121) SCOTT (test code = SCOTT) Association of Glomerular Filtration Rate (GFR) and Staging of Kidney Disease* + --+ --+ ------+| GFR (mL/min/1.73 m2) ?| With Kidney Damage ?| ?Without Kidney Damage+ --------+ --------+ +| ?>90 ?| ?Stage one ?| ? Normal ?+ ---+ ---+ -------+| ?60-89 ?| ?Stage two ?| ? Decreased GFR ? + --+ --+ ------+| ?30-59 ?| ?Stage three ?| ? Stage three ? + --+ --+ ------+| ?15-29 ?| ?Stage four ? | ? Stage four ?+ ---+ ---+ -------+| ?<15 (or dialysis) ? ?| ?Stage five ? | ? Stage five ?+ ---+ ---+ -------+ *Each stage assumes the associated GFR level has been in effect for at least three months. ?Stages 1 to 5, with or without kidney disease, indicate chronic kidney disease. Notes: Determination of stages one and two (with eGFR >59mL/min/1.73 m2) requires estimation of kidney damage for at least three months as defined by structural or functional abnormalities of the kidney, manifested by either:Pathological abnormalities or Markers of kidney damage (including abnormalities in the composition of the blood or urine or abnormalities in imaging tests). Lab Interpretation Abnormal (test code = 47794-6) [facility] 22:47:02 Test Item Value Reference Range Interpretation Comments APPEARANCE (test code = Clear Clear 1121236726) COLOR (test code = Yellow Yellow 0163032349) PH (test code = 4.8-8.0 3160660949) SP GRAVITY (test code = 1.003-1.030 4943478172) GLU U QUAL (test code = Normal Normal 8556676237) BLOOD (test code = Negative Negative 9144526761) KETONES (test code = Negative Negative 2109276385) PROTEIN (test code = Negative Negative 2887-8) UROBILIN (test code = Normal Normal 4636098163) BILIRUBIN (test code = Negative Negative 9277982379) NITRITE (test code = Negative Negative 2254582906) LEUK BAILEY (test code = Negative Negative 5576620454) RBC/HPF (test code = See_Comment [Autom ated message] 4286084603) The system [employer] generated this result transmitted ref erence range: 0 - 3 HP F. The reference range was not used to int erpret this result as normal/abnormal . WBC/HPF (test code = See_Comment [Autom ated message] 9886715714) The system [employer] generated this result transmitted ref erence range: 0 - 5 HP F. The reference range was not used to int erpret this result as normal/abnormal . BACTERIA (test code = Negative Negative 4872622631) MUCOUS (test code = Slight Negative LPF A 8443711469) SQ EPITH (test code = HPF 6821801113) Lab Interpretation (test Abnormal code = 83356-9) [facility] 22:46:57 Test Item Value Reference Range Interpretation Comments LIPASE (test code = 7352404736) 277 U/L 0-220 H Lab Interpretation (test code = Abnormal 38979-1) [facility] WITH [id number] 22:37:16 Test Item Value Reference Range Interpretation Comments WBC (test code = See_Comment [Automated 6690-2) message] The sy stem which generated this result transmitted reference range : 4.30 - 11.10 10*3/?L. The reference range was not used to interpret this result as normal/abnormal . RBC (test code = See_Comment [Automated 789-8) message] The sy stem which generated this result transmitted reference range : 3.93 - 5.25 10*6/?L. The reference range was not used to interpret this result as normal/abnormal . HGB (test code = 13.7 g/dL 11.6-15.0 718-7) HCT (test code = 40.1 % 35.7-45.2 4544-3) MCV (test code = 80.7 fL 80.6-95.5 787-2) MCH (test code = 27.6 pg 25.9-32.8 785-6) MCHC (test code = 34.2 g/dL 31.6-35.1 786-4) RDW-SD (test code = 34.9 fL 39.0-49.9 L 54685-2) RDW-CV (test code = 12.0 % 12.0-15.5 788-0) PLT (test code = See_Comment [Automated 777-3) message] The sy stem which generated this result transmitted reference range : 166 - 358 10*3/ ?L. The reference r lenard was not used to interpret this result as normal/abnormal . MPV (test code = 9.7 fL 9.5-12.9 54052-4) NRBC/100 WBC (test See_Comment [Automat ed code = 0308285607) message] The system which generated this result transmitted reference range : 0.0 - 10.0 /100 WBCs. The refer ence range was not u sed to interpret th is result as normal/abnormal . NRBC x10^3 (test code <0.01 See_Comment [Auto mated = 3286614546) message] The s ystem which generated this result transmitted reference range : 10*3/?L. The reference range was not used to interpret this result as normal/abnormal . GRAN MAT (NEUT) % 47.2 % (test code = 770-8) IMM GRAN % (test code 0.40 % = 5901381283) LYMPH % (test code = 43.2 % 736-9) MONO % (test code = 7.5 % 5905-5) EOS % (test code = 1.2 % 713-8) BASO % (test code = 0.5 % 706-2) GRAN MAT x10^3(ANC) 2.69 10*3/uL 1.88-7.09 (test code = 7827113183) IMM GRAN x10^3 (test <0.03 0.00-0.06 code = 7248481343) LYMPH x10^3 (test code 2.46 10*3/uL 1.32-3.29 = 731-0) MONO x10^3 (test code 0.43 10*3/uL 0.33-0.92 = 742-7) EOS x10^3 (test code = 0.07 10*3/uL 0.03-0.39 711-2) BASO x10^3 (test code 0.03 10*3/uL 0.01-0.07 = 704-7) Lab Interpretation Abnormal (test code = 12032-4) [facility] P[facility] W [id number] 02:46:10Postsurgical changes with anastomoses sutures in the rightcolon.2. Fluid-filled loops of normal caliber mid and distal small bowel may be anonspecific enteritis.3. Previous hernia repair. No recurrent hernia.4. No hydronephrosis.5. No free fluid. RL: 4400AF: [id number] END OF REPORT Ordering Physician: JOSE RODRIGUEZ Clinical Indication: Abd pain, acute, generalized history colon resection,Crohn's disease, bowel obstruction Additional Clinical Information: Comparison: None Technique: CT scan of the abdomen pelvis obtained with IV contrast. CT Scanwas performed using ALARA principles. ? Findings: In the lung bases there is no infiltrate or effusion. The heartsize is normal. Liver spleen enhances normally. Gallbladder is absent. Adrenal glands and pancreas are normal. The kidneys enhance normally without hydronephrosis. Unopacified small bowel colon normal in caliber. There is been previousventral hernia repair. There is no recurrent hernia. There are anastomotic sutures in the right colon. There is no free fluid. The bladder is unremarkable.There is no focal bowel wall thickening. [facility], Radiant Results Inft User - 03/28/2019 8:47 PM CSTOrdering Physician: JOSE RODRIGUEZClinical Indication: Abd pain, acute, generalized history colon resection,Crohn's disease, bowel obstruction Additional Clinical Information:Comparison: NoneTechnique: CT scan of the abdomen pelvis obtained with IV contrast. CT Scanwas performed using ALARA principles. Findings: In the lung bases there is no infiltrate or effusion. The heartsize is normal.Liver spleen enhances normally. Gallbladder is absent.Adrenal glands and pancreas are normal.The kidneys enhance normally without hydronephrosis.Unopacified small bowel colon normal in caliber. There is been previousventral hernia repair. There is no recurrent hernia.There are anastomotic sutures in the right colon.T here is no free fluid. The bladder is unremarkable.There is no focal bowel wall thickening.IMPRESSIONPostsurgical changes with anastomoses sutures in the rightcolon.2. Fluid-filled loops of normal caliber mid and distal small bowel may be anonspecific enteritis.3. Previous hernia repair. No recurrent hernia.4. No hydronephrosis.5. No free fluid.RL: 4400AF: [id number] OF REPORT [facility] Complete Metabolic [id number] 01:12:00 Test Item Value Reference Range Interpretation Comments NA (test code = 140 mmol/L 135-145 9722655555) K (test code = 3.7 mmol/L 3.5-5 6120700035) CL (test code = 104 mmol/L 98-108 7616298510) CO2 TOTAL (test code = 26 mmol/L 23-31 7189786637) AGAP (test code = 2-16 0462908941) BUN (test code = 10 mg/dL 7-23 2919240442) GLUCOSE (test code = 99 mg/dL 70-110 9044781015) CREATININE (test code = 0.53 mg/dL 0.5-1.04 9976955692) TOTAL BILI (test code = 0.5 mg/dL 0.1-1.8 4819503185) CALCIUM (test code = 9.7 mg/dL 8.6-10.6 3776144593) T PROTEIN (test code = 8.8 g/dL 6.3-8.2 H 0931772925) ALBUMIN (test code = 4.6 g/dL 3.5-5 8790202485) ALK PHOS (test code = 126 U/L 34-122 H 5273499365) ALTv (test code = 63 U/L 5-35 H 1742-6) AST(SGOT) (test code = 45 U/L 13-40 H 0686032220) eGFR Calculation mL/min/1.73m2 (Non-) (test code = 5245783914) eGFR Calculation mL/min/1.73m2 () (test code = 6123522723) SCOTT (test code = SCOTT) Association of Glomerular Filtration Rate (GFR) and Staging of Kidney Disease* + --+ --+ ------+| GFR (mL/min/1.73 m2) ?| With Kidney Damage ?| ?Without Kidney Damage+ --------+ --------+ +| ?>90 ?| ?Stage one ?| ? Normal ?+ ---+ ---+ -------+| ?60-89 ?| ?Stage two ?| ? Decreased GFR ? + --+ --+ ------+| ?30-59 ?| ?Stage three ?| ? Stage three ? + --+ --+ ------+| ?15-29 ?| ?Stage four ? | ? Stage four ?+ ---+ ---+ -------+| ?<15 (or dialysis) ? ?| ?Stage five ? | ? Stage five ?+ ---+ ---+ -------+ *Each stage assumes the associated GFR level has been in effect for at least three months. ?Stages 1 to 5, with or without kidney disease, indicate chronic kidney disease. Notes: Determination of stages one and two (with eGFR >59mL/min/1.73 m2) requires estimation of kidney damage for at least three months as defined by structural or functional abnormalities of the kidney, manifested by either:Pathological abnormalities or Markers of kidney damage (including abnormalities in the composition of the blood or urine or abnormalities in imaging tests). Lab Interpretation Abnormal (test code = 31146-0) [facility] [id number] 01:12:00 Test Item Value Reference Range Interpretation Comments LIPASE (test code = 2038574737) 166 U/L 0-220 Lab Interpretation (test code = Normal 23350-3) [facility]ysis[facility] 01:09:00 Test Item Value Reference Range Interpretation Comments APPEARANCE (test code = Clear Clear 9345988315) COLOR (test code = Yellow Yellow 1893341871) PH (test code = 4.8-8.0 9147740234) SP GRAVITY (test code = 1.003-1.030 1447419916) GLU U QUAL (test code = Normal Normal 4250418598) BLOOD (test code = Negative Negative 0994688486) KETONES (test code = Negative Negative 9862053433) PROTEIN (test code = Negative Negative 2887-8) UROBILIN (test code = Normal Normal 4843903820) BILIRUBIN (test code = Negative Negative 7810098936) NITRITE (test code = Negative Negative 2218029788) LEUK BAILEY (test code = 25/uL Negative A 9371569461) RBC/HPF (test code = See_Comment [Autom ated message] 9557105700) The system [employer] generated this result transmitted ref erence range: 0 - 3 HP F. The reference range was not used to int erpret this result as normal/abnormal . WBC/HPF (test code = See_Comment [Autom ated message] 3345503336) The system [employer] generated this result transmitted ref erence range: 0 - 5 HP F. The reference range was not used to int erpret this result as normal/abnormal . BACTERIA (test code = Negative Negative 8253329081) MUCOUS (test code = Slight Negative LPF A 4609320411) SQ EPITH (test code = HPF 0594361866) Lab Interpretation (test Abnormal code = 71054-3) [facility] WITH [id number] 00:58:00 Test Item Value Reference Range Interpretation Comments WBC (test code = See_Comment [Automated 1890-2) message] The sy stem which generated this result transmitted reference range : 4.30 - 11.10 10*3/?L. The reference range was not used to interpret this result as normal/abnormal . RBC (test code = See_Comment [Automated 789-8) message] The sy stem which generated this result transmitted reference range : 3.93 - 5.25 10*6/?L. The reference range was not used to interpret this result as normal/abnormal . HGB (test code = 12.9 g/dL 11.6-15 718-7) HCT (test code = 37.5 % 35.7-45.2 4544-3) MCV (test code = 79.3 fL 80.6-95.5 L 787-2) MCH (test code = 27.3 pg 25.9-32.8 785-6) MCHC (test code = 34.4 g/dL 31.6-35.1 786-4) RDW-SD (test code = 35.2 fL 39-49.9 L 78130-7) RDW-CV (test code = 12.3 % 12-15.5 788-0) PLT (test code = See_Comment [Automated 777-3) message] The sy stem which generated this result transmitted reference range : 166 - 358 10*3/ ?L. The reference r lenard was not used to interpret this result as normal/abnormal . MPV (test code = 9.3 fL 9.5-12.9 L 73058-6) NRBC/100 WBC (test See_Comment [Automat ed code = 0419766040) message] The system which generated this result transmitted reference range : 0.0 - 10.0 /100 WBCs. The refer ence range was not u sed to interpret th is result as normal/abnormal . NRBC x10^3 (test code <0.01 See_Comment [Auto mated = 2248833441) message] The s ystem which generated this result transmitted reference range : 10*3/?L. The reference range was not used to interpret this result as normal/abnormal . GRAN MAT (NEUT) % 51.0 % (test code = 770-8) IMM GRAN % (test code 0.40 % = 7602279575) LYMPH % (test code = 38.3 % 736-9) MONO % (test code = 7.6 % 5905-5) EOS % (test code = 2.1 % 713-8) BASO % (test code = 0.6 % 706-2) GRAN MAT x10^3(ANC) 2.69 10*3/uL 1.88-7.09 (test code = 0196142372) IMM GRAN x10^3 (test <0.03 0-0.06 code = 2771947266) LYMPH x10^3 (test code 2.02 10*3/uL 1.32-3.29 = 731-0) MONO x10^3 (test code 0.40 10*3/uL 0.33-0.92 = 742-7) EOS x10^3 (test code = 0.11 10*3/uL 0.03-0.39 711-2) BASO x10^3 (test code 0.03 10*3/uL 0.01-0.07 = 704-7) Lab Interpretation Abnormal (test code = 93786-2) [facility] HospitalPONY [id number] 00:48:00 Test Item Value Reference Range Interpretation Comments POCT PREG (test code = 1605) negative On board controls acceptable with present C Line (test code = 3574) POCT PREG LOT # (test code = 3575) [id number] POCT PREG TEST DATE (test 10/02/2019 code = 3576) Lab Interpretation (test code = Normal 00147-1) [facility] [id number] 05:12:00 Test Item Value Reference Range Interpretation Comments COLOR (BEAKER) (test code Yellow = 470) CLARITY (BEAKER) (test Clear code = 469) SPECIFIC GRAVITY UA 1.039 1.001-1.035 H (BEAKER) (test code = 468) PH UA (BEAKER) (test code 6.0 5.0-8.0 = 467) PROTEIN UA (BEAKER) (test 10 mg/dL Negative A code = 464) GLUCOSE UA (BEAKER) (test Negative Negative code = 365) KETONES UA (BEAKER) (test 20 mg/dL Negative A code = 371) BILIRUBIN UA (BEAKER) Negative Negative (test code = 462) BLOOD UA (BEAKER) (test Negative Negative code = 461) NITRITE UA (BEAKER) (test Negative Negative code = 465) LEUKOCYTE ESTERASE UA Negative Negative (BEAKER) (test code = 466) UROBILINOGEN UA (BEAKER) 0.2 mg/dL 0.2-1.0 (test code = 463) RBC UA (BEAKER) (test code < /HPF = 519) WBC UA (BEAKER) (test code 0 /HPF = 520) MUCUS (BEAKER) (test code Rare = 1574) SQUAMOUS EPITHELIAL 1 /HPF (BEAKER) (test code = 516) SOURCE(BEAKER) (test code Urine, Clean Catch = 2799) SCREEN, [id number] 05:00:00 Test Item Value Reference Range Interpretation Comments TEST URINE (BEAKER) (test Negative code = 583) BASIC METABOLIC [id number] 03:20:00 Test Item Value Reference Range Interpretation Comments SODIUM (BEAKER) 137 meq/L 136-145 (test code = 381) POTASSIUM (BEAKER) 4.0 meq/L 3.5-5.1 Specimen slightly (test code = 379) hemolyzed CHLORIDE (BEAKER) 107 meq/L 98-107 (test code = 382) CO2 (BEAKER) (test 18 meq/L 22-29 L code = 355) BLOOD UREA NITROGEN 12 mg/dL 7-21 (BEAKER) (test code = 354) CREATININE (BEAKER) 0.65 mg/dL 0.57-1.25 Specimen slightly (test code = 358) hemolyzed GLUCOSE RANDOM 196 mg/dL 70-105 H (BEAKER) (test code = 652) CALCIUM (BEAKER) 8.4 mg/dL 8.4-10.2 (test code = 697) EGFR (BEAKER) (test mL/min/1.73 INSUFFIC IENT CLINICAL code = 1092) sq m DATA TO CALCULA TE ESTIMATED GFR. [id number] 03:08:00 Test Item Value Reference Range Interpretation Comments MAGNESIUM (BEAKER) 2.0 mg/dL 1.6-2.6 Specimen slightly (test code = 627) hemolyzed [id number] 03:08:00 Test Item Value Reference Range Interpretation Comments PHOSPHORUS (BEAKER) 2.6 mg/dL 2.3-4.7 Specimen slightly (test code = 604) hemolyzed HEPATIC FUNCTION [id number] 03:08:00 Test Item Value Reference Range Interpretation Comments TOTAL PROTEIN (BEAKER) 6.8 gm/dL 6.0-8.3 Speci men slightly (test code = 770) hemolyzed ALBUMIN (BEAKER) (test 3.5 g/dL 3.5-5.0 Speci men slightly code = 1145) hemolyzed BILIRUBIN TOTAL 0.3 mg/dL 0.2-1.2 Specimen sli ghtly (BEAKER) (test code = hemoly zed 377) BILIRUBIN DIRECT 0.1 mg/dL 0.1-0.5 Specimen sl ightly (BEAKER) (test code = hemoly zed 706) ALKALINE PHOSPHATASE 76 U/L 40-150 (BEAKER) (test code = 346) AST (SGOT) (BEAKER) 25 U/L 5-34 Specimen slightly (test code = 353) hemolyzed ALT (SGPT) (BEAKER) 31 U/L 6-55 Specimen slightly (test code = 347) hemolyzed CBC W/PLT COUNT & AUTO [id number] 02:54:00 Test Item Value Reference Range Interpretation Comments WHITE BLOOD CELL COUNT (BEAKER) 8.4 K/ L 4.0-10.0 (test code = 775) RED BLOOD CELL COUNT (BEAKER) 4.20 M/ L 4.00-5.00 (test code = 761) HEMOGLOBIN (BEAKER) (test code = 11.5 GM/DL 12.0-15.0 L 410) HEMATOCRIT (BEAKER) (test code = 33.9 % 36.0-45.0 L 411) MEAN CORPUSCULAR VOLUME (BEAKER) 80.8 fL 82.0-99.0 L (test code = 753) MEAN CORPUSCULAR HEMOGLOBIN 27.3 pg 27.0-33.0 (BEAKER) (test code = 751) MEAN CORPUSCULAR HEMOGLOBIN CONC 33.8 GM/DL 32.0-36.0 (BEAKER) (test code = 752) RED CELL DISTRIBUTION WIDTH 12.5 % 10.3-14.2 (BEAKER) (test code = 412) PLATELET COUNT (BEAKER) (test 268 K/CU MM 150-430 code = 756) MEAN PLATELET VOLUME (BEAKER) 7.1 fL 6.5-10.5 (test code = 754) NUCLEATED RED BLOOD CELLS 0 /100 WBC 0-0 (BEAKER) (test code = 413) NEUTROPHILS RELATIVE PERCENT 86 % (BEAKER) (test code = 429) LYMPHOCYTES RELATIVE PERCENT 11 % (BEAKER) (test code = 430) MONOCYTES RELATIVE PERCENT 4 % (BEAKER) (test code = 431) EOSINOPHILS RELATIVE PERCENT 0 % (BEAKER) (test code = 432) BASOPHILS RELATIVE PERCENT 0 % (BEAKER) (test code = 437) NEUTROPHILS ABSOLUTE COUNT 7.18 K/ L 1.80-8.00 (BEAKER) (test code = 670) LYMPHOCYTES ABSOLUTE COUNT 0.88 K/ L 1.48-4.50 L (BEAKER) (test code = 414) MONOCYTES ABSOLUTE COUNT (BEAKER) 0.30 K/ L 0.00-1.30 (test code = 415) EOSINOPHILS ABSOLUTE COUNT 0.02 K/ L 0.00-0.50 (BEAKER) (test code = 416) BASOPHILS ABSOLUTE COUNT (BEAKER) 0.01 K/ L 0.00-0.20 (test code = 417) 0.00"
[2021-03-14] MEDS ORDERED: ONDANSETRON 4 MG/2 ML VIAL ONE (04:47)
[2021-03-14] MEDS ORDERED: MORPHINE 4 MG/ML SYR ONE (04:47)
[2021-03-14] MEDS ORDERED: dexAMETHasone 10 MG/ML VIAL ONE (04:47)
[2021-03-14] MEDS ORDERED: KETOROLAC 30 MG/ML INJ ONE (04:48)
[2021-03-14] MEDS ORDERED: DIAZEPAM 5 MG TABLET ONE (04:48)
[2021-03-14] MEDS ORDERED: NA CHLORIDE 0.9% 1,000 ML ONE (04:49)
[2021-03-14 05:18] LABS: Absolute Lymphocytes (CBC) 1.9 K/uL (0.7-4.9); Hematocrit 37.4 % (36.0-45.0); RBC Red Blood Cell Count 4.44 M/uL (3.86-4.86)
[2021-03-14 05:52] LABS: ALT/SGPT 33 U/L (12-78); Albumin 3.1 g/dL (3.4-5.0); Alkaline Phosphatase 117 U/L (45-117); BUN Blood Urea Nitrogen 17 mg/dL (7-18); Bicarbonate 24 mmol/L (21-32); Bilirubin Total 0.3 mg/dL (0.2-1.0); Glucose Level 104 mg/dL (74-106); Protein, Total 7.5 g/dL (6.4-8.2); Sodium Level 140 mmol/L (136-145)
[2021-03-14 05:53] LABS: AST/SGOT 23 U/L (15-37); Potassium 3.7 mmol/L (3.5-5.1)
[2021-03-14 06:08] LABS: Urine Blood Negative (Negative); Urine Glucose Negative (Negative); Urine Protein Negative (Negative); Urine Specific Gravity 1.025 (1.005-1.030); Urine pH 6.5 (5.0-7.0)
--- NOTE | 2021-03-14 06:44 | ER ---
Nurse's Notes [facility] Name: Maris Arias Age: 40 yrs Sex: Female : 1980 Arrival Date: 03/14/2021 Time: 04:06 Bed 18 Private MD: Diagnosis: Low back pain;Other injury of muscle, fascia and tendon of lower back;Sciatica Presentation: 03/14 04:38 Chief complaint: Patient states: C/o pain in the lower back radiating down both legs x4 mk days that has become constant tonight, denies trauma/bowel or bladder dysfxn. Hx Chrons disease. Coronavirus screen: Vaccine status: Patient reports receiving the 2nd dose of the covid vaccine. Ebola Screen: Patient negative for fever greater than or equal to 101.5 degrees Fahrenheit, and additional compatible Ebola Virus Disease symptoms. Initial Sepsis Screen: Does the patient meet any 2 criteria? No. Patient's initial sepsis screen is negative. Does the patient have a suspected source of infection? No. Patient's initial sepsis screen is negative. Risk Assessment: Do you want to hurt yourself or someone else? Patient reports no desire to harm self or others. Onset of symptoms was March 10, 2021. 04:38 Method Of Arrival: Ambulatory 04:38 Acuity: CELESTE 4 mk Triage Assessment: 07:16 General: Appears in no apparent distress. Behavior is calm, cooperative. Pain: christian Complains of pain in back. 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 none for 4 weeks [Active]; Zoloft 100 mg Oral tab 1 tab once daily [Active]; - PMHx: 07:17 Crohn's; Depression; christian - Immunization history:: Adult Immunizations up to date. - Family history:: not pertinent. - Social history:: Smoking status: Patient denies any tobacco usage or history of. Screenin:16 Abuse screen: Denies threats or abuse. Denies injuries from another. Nutritional christian screening: No deficits noted. Tuberculosis screening: No symptoms or risk factors identified. Fall Risk None identified. Assessment: 05:00 General: Appears uncomfortable. Pain: Complains of pain in back Pain radiates to right mk leg and left leg Pain currently is 10 out of 10 on a pain scale. Quality of pain is described as radiating, Pain began gradually, 4 days Is continuous, intermittent. Neuro: Level of Consciousness is awake, alert, obeys commands, Oriented to person, place, time, situation. Cardiovascular: Heart tones S1 S2 Capillary refill < 3 seconds fingers toes Clubbing of nail beds is absent JVD is absent Patient's skin is warm and dry. Pulses are 2+ in right radial artery, right dorsalis pedis artery, left radial artery and left dorsalis pedis artery Rhythm is regular. Respiratory: Airway is patent Trachea midline Respiratory effort is even, unlabored, Respiratory pattern is regular, symmetrical, Breath sounds are clear. GI: Abdomen is non-distended, Bowel sounds present X 4 quads. Abd is soft and non tender X 4 quads. : No signs and/or symptoms were reported regarding the genitourinary system. Derm: Skin is intact, is healthy with good turgor, Skin is dry, Skin temperature is warm. Musculoskeletal: Circulation, motion, and sensation intact. Capillary refill < 3 seconds, fingers. toes. Range of motion: intact in all extremities, lower back pain, resolved with repositioning. 06:00 Reassessment: Patient and/or family updated on plan of care and expected duration. Pain mk level reassessed. Patient is alert, oriented x 3, equal unlabored respirations, skin warm/dry/pink. Patient states feeling better. Patient states symptoms have improved. Vital Signs: 04:38 BP 118 / 70; Pulse 82; Resp 18; Temp 98.4; Pulse Ox 98% on R/A; mk 04:38 Weight 90.72 kg; Height 5 ft. 1 in. (154.94 cm); mk 05:00 BP 118 / 71; Pulse 74; Resp 18; Pulse Ox 98% on R/A; mk 06:00 BP 122 / 74; Pulse 79; Resp 18; Pulse Ox 98% on R/A; mk 04:38 Body Mass Index 37.79 (90.72 kg, 154.94 cm) Recluse Coma Score: 05:00 Eye Response: spontaneous(4). Verbal Response: oriented(5). Motor Response: obeys commands(6). Total: 15. 06:00 Eye Response: spontaneous(4). Verbal Response: oriented(5). Motor Response: obeys mk commands(6). Total: 15. ED Course: 04:06 Patient arrived in ED. 04:22 Cynthia Ramon, RN is Primary Nurse. mk 04:25 Loi Castle MD is Attending Physician. raul 04:40 Triage completed. mk 05:13 CT Lumbar Spine Wo Con Sent. mk 05:14 Comprehensive Metabolic Panel Sent. mk 05:14 CBC with Diff Sent. mk 06:02 CT Lumbar Spine Wo Con In Process Unspecified. EDMS 07:16 Arm band placed on. christian 07:17 No provider procedures requiring assistance completed. christian 07:17 Patient did not have IV access during this emergency room visit. christian 07:17 Patient has correct armband on for positive identification. Bed in low position. christian Administered Medications: 05:13 Drug: Ketorolac 30 mg Route: IVP; Site: left antecubital; mk 07:18 Follow up: Response: No adverse reaction christian 05:13 Drug: Valium (diazepam) 10 mg Route: PO; mk 07:18 Follow up: Response: No adverse reaction christian 05:14 Drug: NS 0.9% 1000 ml Route: IV; Rate: 1 bolus; Site: right antecubital; mk 07:18 Follow up: Response: No adverse reaction; IV Status: Completed infusion christian 05:14 Drug: morphine 4 mg Route: IVP; Site: right antecubital; mk 07:18 Follow up: Response: No adverse reaction christian 05:14 Drug: Zofran (Ondansetron) 4 mg Route: IVP; Site: right antecubital; mk 07:18 Follow up: Response: No adverse reaction christian 05:14 Drug: Decadron - Dexamethasone 10 mg Route: IVP; Site: right antecubital; mk 07:18 Follow up: Response: No adverse reaction christian Outcome: 06:44 Discharge ordered by . raul 07:17 Discharged to home christian 07:17 Condition: good 07:17 Discharge instructions given to 07:19 Patient left the ED. christian Signatures: Dispatcher [employer] EDMA Loi Castle MD MD cha Marsh, Wendy Rayne Escobar RN RN Cynthia Ramon, RN RN Corrections: (The following items were deleted from the chart) 07:21 07:21 Reassessment: Patient and/or family updated on plan of care and expected mk duration. Pain level reassessed. Patient is alert, oriented x 3, equal unlabored respirations, skin warm/dry/pink. Patient states feeling better. Patient states symptoms have improved. mk
--- NOTE | 2021-03-14 06:45 | EDPHYS ---
Physician Documentation [facility] Name: Maris Arias Age: 40 yrs Sex: Female : 1980 Arrival Date: 03/14/2021 Time: 04:06 Bed 18 Private MD: EFRA Physician Loi Castle HPI: 03/14 04:34 This 40 yrs old Female presents to ER via Unassigned with complaints of Low raul Back Pain - Radiating down both legs. 04:34 The patient presents with pain and decreased range of motion, and an injury. The raul symptoms are located in the low back. The pain radiates to the left low back and right low back. The problem was sustained from unknown cause. Onset: The symptoms/episode began/occurred 2 day(s) ago. Modifying factors: The patient symptoms are alleviated by remaining still, rest, the patient symptoms are aggravated by movement. Associated signs and symptoms: The patient has no apparent associated signs or symptoms. Severity of symptoms: At their worst the symptoms were mild, in the emergency department the symptoms are actually worse. The patient has experienced similar episodes in the past, a few times. MANAGER CONTACT: 07:16 LMP N/A - control method christian Historical: - Home Meds: 07:17 Humira 10 mg/0.2 mL subcutaneous sykt Q 2 WEEKS [Active]; was on humira now on another christian monoclonal. none for 4 weeks [Active]; Zoloft 100 mg Oral tab 1 tab once daily [Active]; - PMHx: 07:17 Crohn's; Depression; christian - Immunization history:: Adult Immunizations up to date. - Family history:: not pertinent. - Social history:: Smoking status: Patient denies any tobacco usage or history of. ROS: 04:34 Constitutional: Negative for fever, chills, and weight loss, Eyes: Negative for injury, raul pain, redness, and discharge, ENT: Negative for injury, pain, and discharge, Neck: Negative for injury, pain, and swelling, Cardiovascular: Negative for chest pain, palpitations, and edema, Respiratory: Negative for shortness of breath, cough, wheezing, and pleuritic chest pain, Abdomen/GI: Negative for abdominal pain, nausea, vomiting, diarrhea, and constipation, : Negative for injury, bleeding, discharge, and swelling, MS/Extremity: Negative for injury and deformity, Skin: Negative for injury, rash, and discoloration, Neuro: Negative for headache, weakness, numbness, tingling, and seizure, Psych: Negative for depression, anxiety, suicide ideation, homicidal ideation, and hallucinations, Allergy/Immunology: Negative for hives, rash, and allergies, Endocrine: Negative for neck swelling, polydipsia, polyuria, polyphagia, and marked weight changes. 04:34 Back: Positive for injury or acute deformity, decreased range of motion, pain with movement, of the lumbar area, left low back and right low back. Exam: 04:34 Constitutional: This is a well developed, well nourished patient who is awake, alert, raul and in no acute distress. Head/Face: Normocephalic, atraumatic. Eyes: Pupils equal round and reactive to light, extra-ocular motions intact. Lids and lashes normal. Conjunctiva and sclera are non-icteric and not injected. Cornea within normal limits. Periorbital areas with no swelling, redness, or edema. ENT: Nares patent. No nasal discharge, no septal abnormalities noted. Tympanic membranes are normal and external auditory canals are clear. Oropharynx with no redness, swelling, or masses, exudates, or evidence of obstruction, uvula midline. Mucous membranes moist. Neck: Trachea midline, no thyromegaly or masses palpated, and no cervical lymphadenopathy. Supple, full range of motion without nuchal rigidity, or vertebral point tenderness. No Meningismus. Chest/axilla: Normal chest wall appearance and motion. Nontender with no deformity. No lesions are appreciated. Cardiovascular: Regular rate and rhythm with a normal S1 and S2. No gallops, murmurs, or rubs. Normal PMI, no JVD. No pulse deficits. Respiratory: Lungs have equal breath sounds bilaterally, clear to auscultation and percussion. No rales, rhonchi or wheezes noted. No increased work of breathing, no retractions or nasal flaring. Abdomen/GI: Soft, non-tender, with normal bowel sounds. No distension or tympany. No guarding or rebound. No evidence of tenderness throughout. Pelvic Exam: Normal external genitalia. Speculum exam with closed cervical os, no discharge or bleeding noted. Bimanual exam with normal adnexa, no adnexal or cervical motion tenderness. Normal uterus. Female : Normal external genitalia. Skin: Warm, dry with normal turgor. Normal color with no rashes, no lesions, and no evidence of cellulitis. MS/ Extremity: Pulses equal, no cyanosis. Neurovascular intact. Full, normal range of motion. Neuro: Awake and alert, GCS 15, oriented to person, place, time, and situation. Cranial nerves II-XII grossly intact. Motor strength 5/5 in all extremities. Sensory grossly intact. Cerebellar exam normal. Normal gait. 04:34 Back: pain, that is moderate, ROM is decreased, normal spinal alignment noted, CVA tenderness, is absent, vertebral tenderness, is not appreciated, muscle spasm, is not present. Vital Signs: 04:38 BP 118 / 70; Pulse 82; Resp 18; Temp 98.4; Pulse Ox 98% on R/A; mk 04:38 Weight 90.72 kg; Height 5 ft. 1 in. (154.94 cm); 05:00 BP 118 / 71; Pulse 74; Resp 18; Pulse Ox 98% on R/A; mk 06:00 BP 122 / 74; Pulse 79; Resp 18; Pulse Ox 98% on R/A; mk 04:38 Body Mass Index 37.79 (90.72 kg, 154.94 cm) Leslie Coma Score: 05:00 Eye Response: spontaneous(4). Verbal Response: oriented(5). Motor Response: obeys mk commands(6). Total: 15. 06:00 Eye Response: spontaneous(4). Verbal Response: oriented(5). Motor Response: obeys mk commands(6). Total: 15. MDM: 04:25 Patient medically screened. [facility] 04:34 Differential diagnosis: strain, sciatica, contusion, Herniated disc. Data reviewed: [facility] vital signs, nurses notes, lab test result(s). Data interpreted: leather tanner: not applicable for this patient encounter. rate is 85 beats/min, rhythm is regular, Pulse oximetry: is not applicable for this patient encounter. on room air. Test interpretation: by ED physician or midlevel provider:. Counseling: I had a detailed discussion with the patient and/or guardian regarding: the historical points, exam findings, and any diagnostic results supporting the discharge/admit diagnosis, lab results, radiology results, the need for outpatient follow up, for definitive care, a family practitioner. 03/14 04:34 Order name: CBC with Diff; Complete Time: 06:08 raul 03/14 04:34 Order name: Comprehensive Metabolic Panel; Complete Time: 06:08 raul 03/14 04:34 Order name: CT Lumbar Spine Wo Con [facility] 03/14 06:07 Order name: Urine Dipstick-Ancillary EDMS 03/14 04:34 Order name: Urine Dipstick-Ancillary (obtain specimen); Complete Time: 06:20 raul Administered Medications: 05:13 Drug: Ketorolac 30 mg Route: IVP; Site: left antecubital; mk 07:18 Follow up: Response: No adverse reaction christian 05:13 Drug: Valium (diazepam) 10 mg Route: PO; mk 07:18 Follow up: Response: No adverse reaction christian 05:14 Drug: NS 0.9% 1000 ml Route: IV; Rate: 1 bolus; Site: right antecubital; mk 07:18 Follow up: Response: No adverse reaction; IV Status: Completed infusion christian 05:14 Drug: morphine 4 mg Route: IVP; Site: right antecubital; mk 07:18 Follow up: Response: No adverse reaction christian 05:14 Drug: Zofran (Ondansetron) 4 mg Route: IVP; Site: right antecubital; mk 07:18 Follow up: Response: No adverse reaction christian 05:14 Drug: Decadron - Dexamethasone 10 mg Route: IVP; Site: right antecubital; mk 07:18 Follow up: Response: No adverse reaction christian Disposition Summary: 03/14/21 06:44 Discharge Ordered Location: Home raul Problem: new raul Symptoms: have improved raul Condition: Fair raul Diagnosis - Low back pain raul - Other injury of muscle, fascia and tendon of lower back raul - Sciatica raul Followup: raul - With: Private Physician - When: 2 - 3 days - Reason: Recheck today's complaints, Continuance of care, Re-evaluation by your physician Discharge Instructions: - Discharge Summary Sheet raul - Acute Back Pain, Adult raul - Chronic Back Pain raul - Musculoskeletal Pain raul - Chronic Back Pain, [id number] raul - Back Exercises, [id number] raul - Radicular Pain raul Forms: - Medication Reconciliation Form raul - Thank You Letter raul - Antibiotic Education raul - Prescription Opioid Use raul - Work release form mw2 Prescriptions: - dexamethasone 2 mg Oral tablet - take 1 tablet by ORAL route 2 times per day; 10 tablet; Refills: 0, Product arul Selection Permitted - Ibuprofen 600 mg Oral Tablet - take 1 tablet by ORAL route every 6 hours As needed take with food; 30 tablet; raul Refills: 0, Product Selection Permitted - Valium 5 mg Oral Tablet - take 1 tablet by ORAL route every 8 hours As needed; 20 tablet; Refills: 0, [facility] Product Selection Permitted - Tylenol-Codeine #3 300 mg-30 mg Oral - take 2 tablet by ORAL route every 6 hours; 20 tablet; Refills: 0, Product raul Selection Permitted Signatures: Dispatcher [employer] Loi Pedro MD MD cha Au-Stager, Heather, RN RN Cynthia Diego RN RN
[2021-03-14 07:35] VITALS: BP 118/70; TEMP 98.4; O2SAT 98
--- NOTE | 2021-03-14 11:38 | RAD REPORT ---
EXAM DESCRIPTION: CT Lumbar Spine Without Intravenous Contrast CLINICAL HISTORY: The patient is 40 years old and is Female; LOWER BACK PAIN TECHNIQUE: Axial computed tomography images of the lumbar spine without intravenous contrast. Sagi ttal and coronal reformatted images were created and reviewed. This CT exam was performed using one or more of the following dose reduction techniques: automated exposure control, adjustment of the mA and/or kV according to patient size, and/or use of iterative reconstruction technique. COMPARISON: No relevant prior studies available. FINDINGS: VERTEBRAE: The vertebral body heights and alignment are maintained. No acute fracture. DISCS/SPINAL CANAL/NEURAL FORAMINA: The intervertebral disc spaces are maintained. No spinal farzaneh l stenosis. SOFT TISSUES: The soft tissues are normal. OTHER FINDINGS: Vacuum phenomenon at the bilateral SI joints is noted. IMPRESSION: No fracture or malalignment of the lumbar spine. Electronically signed by: Gertrude Crabtree MD 03/14/2021 7:09 AM HOSE OPERATOR Due to temporary technical issues with the PACS/Fluency reporting system, reports are being signed by the in house radiologists without review as a courtesy to insure prompt reporting. The interpreting radiologist is fully responsible for the content of the report.
== END 2021-03-14 07:19 | disposition home or self-care (01) ==
LOC: ER 04:00
DX: M54.30 Sciatica, unspecified side (principal); S39.092A Other injury of muscle, fascia and tendon of lower back, initial encounter; F32.A Depression, unspecified
CPT/HCPCS: 96361; 85025; 36415; 81003; 80053; 72131; 96375; 96374; 99283; J1100; J7030; J2405

== ENCOUNTER 2021-04-04 13:18 | Inpatient (IN) | payer BC ==
--- OUTSIDE RECORDS SUMMARY | 2021-04-04 13:22 | XMS REPORT | Clinical Summary ---
:1980 Author Organization [facility] MD [facility] Address [facility] [place] [address] Care Team Providers Name Role Phone Juwan Guerrero MD Primary Care Provider Allergies Not on File Medications Not on file Active Problems Not on file Encounters Date Type Specialty Care Team Description 03/13/2021 Lab Requisition [facility] MD Witson, Anne S., MD 02/28/2021 Ancillary Procedure Radiology Juwan Guerrero M D Cancer 02/20/2021 Travel after 04/04/2020 Social History Tobacco Use Types Packs/Day Years Used Date Never Assessed Sex Assigned at Date Recorded Female 02/20/2021 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 OSI CT SFT TISS NECK Routine 01/30/2021 9:06 Cancer Res ults for this AM YIELD IMPROVEMENT ENGINEER procedure are i n the results section. after 04/04/2020 Results Pathology Outside Interpretation (02/13/2021) Materials Accession#, Stained, Block, Unstained Collected Receiv ed [facility] Received A. 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 Most (70-80%) of the neoplasm has a diffuse pattern, but there are also follicular areas (20-30% [facility] ). Both the diffuse and foll icular areas are composed of large neoplastic cells with features centroblasts. Many apoptotic cells are present and mitotic figures are easily identified. The diffuse areas show a starry judith pattern. We have reviewed immunohisto chemical studies performed elsewhere on this specimen. The neoplastic cells are positive for CD10, CD20, CD43 (weak), PAX-5, BCL-2 (strong), BCL-6 and MUM1/IRF4, and are nega tive for CD3, CD5, CD21, CD3 0, and cyclin D1. The antibody specific for CD21 shows some follicular dendritic cell networks within the follicular component of the neoplasm. The antibody specific for Ki-6 7 shows a proliferation rate of 90-95% in the diffuse areas and in some of the follicular areas. According to the submitted r eport, in situ hybridization analysis showed that the neoplasm is negative for Makayla-Quevedo virus encoded RNA (DEONTE). This slide has not been sent to us for review. According to the submitted r eport, flow cytometry immunophenotypic studies were performed on a cell suspension of this specimen. The results showed a aberrant B-cell population positive for monotypic la mbda and CD10 and representi ng 17% of the events analyzed. We have not been sent a complete flow cytometry report for review. According to the submitted r eport, fluorescence in situ hybridization (FISH) studies were ordered to assess for MYC, BCL2 and BCL6 rearrangements. We will request a copy of that report. Technical Charge Note: H&E Disclaimer "Some tests reported here [facility] may have been developed and performance characteristics determined by [facility]. These tests have not been specifically cleared or approved by the U.S. Food and Drug Administration. 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 For comparison only. No MD Tin originated interpretation requested or a vailable. after 04/04/2020 Insurance Payer Benefit Plan / Subscriber ID Effective Dates Phone Addre ss Type Group [place] POS [id number] 2020-Present [address] [place] [address] Care Teams Assistant Warehouse Manager Relationship Specialty Start Date End Date Juwan Guerrero MD PCP - General Lymphoma and Myeloma 02/21/21 [address] [place] [address]
--- OUTSIDE RECORDS SUMMARY | 2021-04-04 13:27 | XMS REPORT | Continuity of Care Document ---
:[address] [facility] t Address [facility] [place] [address] Care Team Providers Name Role Phone [phone] Primary Care Physician Unavailable SYSTEM, NOT IN Attending Clinician Unavailable HARLAN Attending Clinician Unavailable PATRICIA Attending Clinician Unavailable Marc Hill MD Attending Clinician Jose Alfredo BRYAN S. Attending Clinician Ricki Ardon MD Attending Clinician Ricki ARDON Attending Clinician Unavailable MARICHUYONJEANNIE Attending Clinician Unavailable AGA, W Attending Clinician Unavailable Mariam LEE Attending Clinician Unavailable Mariam Lee MD Attending Clinician LAB90 Attending Clinician Unavailable Harlan SANITARY AIDE-C Attending Clinician Job FELIX, T Attending Clinician Unavailable Darien SANITARY AIDE Attending Clinician Abigail SANITARY AIDE Attending Clinician ABIGAIL Attending Clinician Unavailable Doctor Unassigned, Name Attending Clinician Unavailable Rodriguez PAC, S Attending Clinician DO Attending Clinician RIVERA Attending Clinician Unavailable Lab, Fam Pob I Attending Clinician Unavailable Debra REEDER Attending Clinician AYO Attending Clinician Unavailable SYLVIA BECKWITH Attending Clinician Unavailable ИРИНА Admitting Clinician Unavailable NICOLE Admitting Clinician Unavailable AYO Admitting Clinician Unavailable SYLVIA BECKWITH Admitting Clinician Unavailable Payers Payer Name Policy Type Policy Number Effective Date Expiration Date S rahul [employer] [place] - [id number] 2016 OUT OF STATE 00:00:00 BCBS 2 [id number] 2020 00:00:00 BLUE CROSS BLUE [id number] MD Yan molina [place] P[place] 00:00:00 [id number] 03/2020-[id number], [place] [address]XVP Problems Condition Condition Condition Status Onset Resolution Last Treating Co mments Source Name Details Category Date Date Treatment Clinician Date Depression Depression Disease Active K elsey 4-06 Seybold 00:00: 00 Inflammato Inflammato Disease Active Overview : Karolina ry bowel ry bowel 06 Formattin Sey bold disease disease 00:00: g [...] 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 C. Disease Active 2018-03 Univers difficile difficile 0-02 ity of diarrhea diarrhea 00:00: [place] [facility] Intractabl Intractabl Disease Active 2018-03 U nivers e vomiting e vomiting 0-01 it y of 00:00: [place] 00 Medical Branch History of History of Disease Active U nivers incisional incisional 6-10 it y of hernia hernia 00:00: [place] repair repair 00 Medical Branch History of History of [...] of cholelithi cholelithi 00:00: g of this [place] asis asis 00 note Medical might be Branch different from the original. Added automatic ally from request for surgery [id number] Abdominal Abdominal Disease Active Uni vers pain pain 6-28 ity of 00:00: [place] 00 Medical Branch Crohn Crohn Disease Active Univers disease disease 5-04 ity of 00:00: [place] 00 Medical Branch Generalize Generalize Disease Active [...] (BMI 2-12 ity of 30-39.9) 30-39.9) 00:00: [place] 00 Medical Branch Morbid Morbid Disease Active [...] Active Univers ALLERGIE Class ity of [facility] NO KNOWN Allergy Active [facility] Social History Social Habit Start Date Stop Date Quantity Comments Source History SDOH Karolina polanco Alcohol Frequency History SDOH Karolina polanco Alcohol Std Drinks History SDOH Karolina polanco Alcohol Binge History of Karolina Galicia tobacco use Exposure to Yes University [facility]-CoV-2 [facility] (event) Branch Alcohol intake 2021-01-25 2021-01-25 Current drinker Laura Galicia 00:00:00 00:00:00 of alcohol (finding) Alcohol Comment 2021-01-25 2021-01-25 social Karolina ybold 00:00:00 00:00:00 Tobacco Comment 2021-01-25 2021-01-25 vape Karolina Se ybold 00:00:00 00:00:00 Tobacco use and 2021-01-18 2021-01-18 Smokeless tobacco Ke sonjajarrod Seybold exposure 00:00:00 00:00:00 non-user History SDMO 2018-12-03 2018-12-03 5 University o f Financial 00:00:00 00:00:00 [place] [facility] History SDOH Food 2018-12-03 2018-12-03 1 Univers ity of Worry 00:00:00 00:00:00 [place] [facility] History SDOH Food 2018-12-03 2018-12-03 1 Univers ity of Scarcity 00:00:00 00:00:00 [place] [facility] History SDOH 2018-12-03 2018-12-03 2 University o f Transport Med 00:00:00 00:00:00 [place] Medic al [facility] History SDMO 2018-12-03 2018-12-03 2 University o f Transport Non-Med 00:00:00 00:00:00 [place] M edical Branch History SDMO 2018-12-02 2018-12-02 14 University o f Education 00:00:00 00:00:00 [facility] Sex Ass[birth year] At [birth year] F MD Christiansen on 00:00:00 00:00:00 Smoking Status Start Date Stop Date Source Smokes tobacco daily 2021-01-18 00:00:00 Karolina Seybold [facility] sm[facility] Current some day smoker 2019-01-05 00:00:00 [facility] Medications Ordered Filled Start Stop Current Ordering [...] Solution 33 Prefilled Syringe Estrogens 2020-03 Yes [id number] Take one Karolina Conjugated 1-24 tablet Seybold (Premarin) 00:00: daily 0.3 MG oral 00 Tablet Ustekinumab 2020-03 Yes Inject Courtney ey 45 MG/0.5ML 1-17 into the Seyb old subcutaneou 10:59: skin s Solution 00 Prefilled Syringe Ustekinumab 2020-03 Yes Inject Courtney ey (STELARA 1-17 into the Seybold SC) 10:57: skin Every 52 8 Weeks hydrOXYzine 2020-03 Yes [id number] 10mg [id number] Take 1 Karolina HCl 10 MG 1-17 [id number] tablet (10 Seybold oral Tablet 00:00: 3D mg total) 00 by mouth 3 times daily as needed for itching or anxiety Fluoxetine 2020-03 Yes [id number] 40mg Take 1 K elsey HCl 40 MG 1-17 capsule Seybold oral 00:00: (40 mg Capsule 00 total) by mouth daily hydrOXYzine 2020-03 Yes [id number] 10mg Q.[id number] Take 1 Karolina HCl 10 MG 1-17 [id number] tablet (10 Seybold oral Tablet 00:00: 3D mg total) 00 by mouth 3 times daily as needed for itching or anxiety Fluoxetine 2020-03 Yes [id number] 40mg Take 1 K elsey HCl 40 MG 1-17 capsule Seybold oral 00:00: (40 mg Capsule 00 total) by mouth daily HYDROcodone 2020- No 1{tbl} 1 tablet, Univers -acetaminop 10-02 Oral, ity of hen (NORCO 07:45: 06:47 ONCE, 1 Gaurang as 5) 5-325 mg 00 :00 dose, Sun Med ical tablet 1 10/02/20 at [place] tablet 0245, LEWIS dicyclomine 2020- No 20mg 20 mg, Uni [...] Sun Medica l NaCl 0.9% 10/02/20 at [facility] h (NS) 50 mL 0145, 50 piggyback mL ondansetron 2020- No 4mg 4 mg, Slow Univers (ZOFRAN 10-02 IV Push, ity of (PF)) 05:15: 04:37 ONCE, 1 [place] injection 4 00 :00 dose, Sun Med ical mg 10/02/20 at Branch 0015, LEWIS Ustekinumab Yes inject Univ ers 45 mg/0.5 8-01 under the ity o f mL SC 04:11: skin. [place] injection [address] [place] [address] Ustekinumab Yes inject Univ ers 45 mg/0.5 8-01 under the ity o f mL SC 04:11: skin. [place] injection [address] [place] [address] Ustekinumab Yes inject Univ ers 45 mg/0.5 8-01 under the ity o f mL SC 04:11: skin. [place] injection [address] [place] [address] Ustekinumab Yes inject Univ ers 45 mg/0.5 8-01 under the ity o f mL SC 04:11: skin. [place] injection [address] [place] [address] Ustekinumab Yes inject Univ ers 45 mg/0.5 8-01 under the ity o f mL SC 04:11: skin. [place] injection 16 Medical Branch Ustekinumab Yes inject Univ ers 45 mg/0.5 8-01 under the ity o f mL SC 04:11: skin. [place] injection 16 Medical Branch proMETHazin Yes [id number] 25mg Take 1 Univers e 25 mg 8-01 tablet by ity of tablet 00:00: mouth [place] 00 every 6 Medical (six) Branch hours as needed for N/V unresponsi ve to Ondansetro n. proMETHazin Yes [id number] 25mg Take 1 Univers e 25 mg 8-01 tablet by ity of tablet 00:00: mouth [place] 00 every 6 Medical (six) Branch hours as needed for N/V unresponsi ve to Ondansetro n. proMETHazin Yes [id number] 25mg Take 1 Univers e 25 mg 8-01 tablet by ity of tablet 00:00: mouth [place] 00 every 6 Medical (six) Branch hours as needed for N/V unresponsi ve to Ondansetro n. proMETHazin Yes [id number] 25mg Take 1 Univers e 25 mg 8-01 tablet by ity of tablet 00:00: mouth [place] 00 every 6 Medical (six) Branch hours as needed for N/V unresponsi ve to Ondansetro n. proMETHazin Yes [id number] 25mg Take 1 Univers e 25 mg 8-01 tablet by ity of tablet 00:00: mouth [place] 00 every 6 Medical (six) Branch hours as needed for N/V unresponsi ve to Ondansetro n. proMETHazin Yes [id number] 25mg Take 1 Univers e 25 mg 8-01 tablet by ity of tablet 00:00: mouth [place] 00 every 6 Medical (six) Branch hours as needed for N/V unresponsi ve to Ondansetro n. Promethazin Yes 25mg Q6H Take 25 mg Karolina e HCl 25 MG 8-01 by mouth Seyb old oral Tablet 00:00: every 6 00 hours as needed Promethazin Yes 25mg Q6H Take 25 mg Karolina e HCl 25 MG 8-01 by mouth Seyb old oral Tablet 00:00: every 6 00 hours as needed ondansetron 2020- No 4mg 4 mg, Slow Univers (ZOFRAN 5-19 05-18 IV Push, ity of (PF)) 00:15: 23:18 ONCE, 1 [place] injection 4 00 :00 dose, Tue Med ical mg 07/19/20 at Branch 1915, Routine morpHINE 2020- No 4mg 4 mg, Slow Un alf injection 4 - 05-18 IV Push, ity of mg 00:15: 23:18 ONCE, 1 [place] 00 :00 dose, Tue Medical 07/19/20 at Branch 1915, STAT NaCl 0.9% 2020- No 500mL at 999 Univ ers (NS) bolus 18 05-18 mL/hr, 500 it y of infusion 22:30: 23:18 mL, IV [place] 500 mL 00 :00 Infusion, Medical ONCE, 1 Branch dose, 07/19/20 at 1730, STAT ondansetron 0 Yes [id number] 4mg Take 1 Univers (ZOFRAN 5-18 tablet by ity of ODT) 4 mg 00:00: mouth [place] disintegrat 00 every 8 Medic al ing tablet (eight) Branch hours as needed for Nausea and Vomiting (N/V). ondansetron Yes [id number] 4mg Take 1 Univers (ZOFRAN 5-18 tablet by ity of ODT) 4 mg 00:00: mouth [place] disintegrat 00 every 8 Medic al ing tablet (eight) Branch hours as needed for Nausea and Vomiting (N/V). ondansetron Yes [id number] 4mg Take 1 Univers (ZOFRAN 5-18 tablet by ity of ODT) 4 mg 00:00: mouth [place] disintegrat 00 every 8 Medic al ing tablet (eight) Branch hours as needed for Nausea and Vomiting (N/V). ondansetron 2020-0 Yes [id number] 4mg Take 1 Univers (ZOFRAN 5-18 tablet by ity of ODT) 4 mg 00:00: mouth [place] disintegrat 00 every 8 Medic al ing tablet (eight) Branch hours as needed for Nausea and Vomiting (N/V). ondansetron 2020-0 Yes [id number] 4mg Take 1 Univers (ZOFRAN 5-18 tablet by ity of ODT) 4 mg 00:00: mouth [place] disintegrat 00 every 8 Medic al ing tablet (eight) Branch hours as needed for Nausea and Vomiting (N/V). ondansetron 2021-0 Yes [id number] 4mg Take 1 Univers (ZOFRAN 5-18 tablet by ity of ODT) 4 mg 00:00: mouth [place] disintegrat 00 every 8 Medic al ing tablet (eight) Branch hours as needed for Nausea and Vomiting (N/V). ondansetron 2021-0 Yes [id number] 4mg Take 1 Univers (ZOFRAN 5-18 tablet [...] 8 TABLET 00 hours as DISPERSIBLE needed Fluoxetine 2020-0 Yes 20mg Take 20 mg K elsey HCl 20 MG 4-06 by mouth Seybol d oral 00:00: Capsule 00 FLUoxetine 2020-0 Yes 20mg Take 20 mg U nivers 20 mg 4-06 by mouth. ity of capsule 00:00: [place] [facility] FLUoxetine 2021-0 Yes 20mg Take 20 mg U nivers 20 mg 4-06 by mouth. ity of capsule 00:00: [place] [facility] FLUoxetine 2021-0 Yes 20mg Take 20 mg U nivers 20 mg 4-06 by mouth. ity of capsule 00:00: [place] [facility] FLUoxetine 2021-0 Yes 20mg Take 20 mg U nivers 20 mg 4-06 by mouth. ity of capsule 00:00: [place] [facility] FLUoxetine 2021-0 Yes 20mg Take 20 mg U nivers 20 mg 4-06 by mouth. ity of capsule 00:00: [place] [facility] FLUoxetine 2021-0 Yes 20mg Take 20 mg U nivers 20 mg 4-06 by mouth. ity of capsule 00:00: [place] 00 [facility] Fluoxetine Yes [id number] 20mg Take 1 K elsey HCl 20 MG 4-06 capsule Seybold oral 00:00: (20 mg Capsule 00 total) by mouth daily Fluoxetine Yes 20mg Take 20 mg K elsey HCl 20 MG 4-06 by mouth Seybol d oral 00:00: Capsule 00 Fluoxetine Yes [id number] 20mg Take 1 K elsey HCl 20 MG 4-06 capsule Seybold oral 00:00: (20 mg Capsule 00 total) by mouth daily lactobacill Yes [id number] 1{tbl} Take 1 Univers us 5-30 tablet by ity of acidophilus 00:00: mouth 2 Gaurang as 25 million 00 (two) Medical cell -100 times Branch mg captab daily. lactobacill Yes [id number] 1{tbl} Take 1 Univers us 5-30 tablet by ity of acidophilus 00:00: mouth 2 Gaurang as 25 million 00 (two) Medical cell -100 times Branch mg captab daily. lactobacill Yes [id number] 1{tbl} Take 1 Univers us 5-30 tablet by ity of acidophilus 00:00: mouth 2 Gaur[place] as 25 million 00 (two) Medical cell -100 times Branch mg captab daily. lactobacill 2020- No [id number] 1{tbl} Take 1 Univers us 5-30 07-31 tablet by ity of acidophilus 00:00: 00:00 mouth 2 [place] 25 [place] 00 :00 (two) Medical cell -100 times Branch mg captab daily. ondansetron 2019- No 4mg 4 mg, Slow Univers (ZOFRAN 03-29 IV Push, ity of (PF)) 03:15: 02:25 ONCE, 1 [place] injection 4 00 :00 dose, Sat Med ical mg 03/28/19 at Branch 211, LEWIS morpHINE 2019- No 4mg 4 mg, Slow Un alf injection 4 03-29 IV Push, ity of mg 03:15: 02:07 ONCE, 1 [place] 00 :00 dose, Sat Medical 03/28/19 at Branch 5, STAT diphenhydrA 2019- No 25mg 25 mg, Uni vers MINE 03-29 Slow IV ity of (BENADRYL) 03:15: 02:25 Push, [place] injection 00 :00 ONCE, 1 Medical 25 mg dose, Sat Branch 03/28/19 at 2114, STAT iohexol 2019-0 2020- No 120mL 120 mL, Unive rs (OMNIPAQUE 03-29 Intravenou it y of 350 02:45: 02:32 s, ONCE, 1 [place] BULK-100 00 :00 dose, Sat Medica l mL) 03/28/19 at Branch injection 2044, 120 mL Routine ondansetron 0 2020- No 4mg 4 mg, Slow Univers (ZOFRAN 03-29 IV Push, ity of (PF)) 02:15: 01:11 ONCE, 1 [place] injection 4 00 :00 dose, Sat Med ical mg 03/28/19 at Branch 2014, LEWIS morpHINE 2019-0 2020- No 4mg 4 mg, Slow Un alf injection 4 03-29 IV Push, ity of mg 02:15: 01:11 ONCE, 1 [place] 00 :00 dose, Sat Medical 03/28/19 at Branch 2014, STAT traMADol 50 2020-0 Yes [id number] 50mg Take 1 Univers mg tablet 1-25 tablet by ity o f 00:00: mouth [place] 00 every 6 Medical (six) Branch hours as needed for Pain (scale 4-6). ondansetron 2020-0 Yes [id number] 8mg Take 1 Univers (ZOFRAN 1-25 tablet by ity of ODT) 8 mg 00:00: mouth [place] disintegrat 00 every 8 Medic al ing tablet (eight) Branch hours as needed for Nausea and Vomiting (N/V). traMADol 50 2020-0 Yes [id number] 50mg Take 1 Univers mg tablet 1-25 tablet by ity o f 00:00: mouth [place] 00 every 6 Medical (six) Branch hours as needed for Pain (scale 4-6). ondansetron 2020-0 Yes [id number] 8mg Take 1 Univers (ZOFRAN 1-25 tablet by ity of ODT) 8 mg 00:00: mouth [place] disintegrat 00 every 8 Medic al ing tablet (eight) Branch hours as needed for Nausea and Vomiting (N/V). traMADol 50 2020-0 Yes [id number] 50mg Take 1 Univers mg tablet 1-25 tablet by ity o f 00:00: mouth [place] 00 every 6 Medical (six) Branch hours as needed for Pain (scale 4-6). ondansetron Yes [id number] 8mg Take 1 Univers (ZOFRAN 1-25 tablet by ity of ODT) 8 mg 00:00: mouth [place] disintegrat 00 every 8 Medic al ing tablet (eight) Branch hours as needed for Nausea and Vomiting (N/V). traMADol 50 Yes [id number] 50mg Take 1 Univers mg tablet 1-25 tablet by ity o f 00:00: mouth [place] 00 every 6 Medical (six) Branch hours as needed for Pain (scale 4-6). traMADol 50 2020- No [id number] 50mg Take 1 Univers mg tablet 1-25 07-31 tablet by ity of 00:00: 00:00 mouth [place] 00 :00 every 6 Medical (six) Branch hours as needed for Pain (scale 4-6). ondansetron 2020- No [id number] 8mg Take 1 Univers (ZOFRAN 1-25 05-18 [...] Free Hepatitis B, Adult 2010-12-20 Completed Karolina Seybold [...] Name Observation Time Observation Value Comments Source Systolic blood 2021-01-25 17:11:00 128 mm[Hg] Karolina Seybold pressure Diastolic blood 2021-01-25 17:11:00 70 mm[Hg] Kelse y Seybold pressure Heart rate 2021-01-25 17:11:00 82 /min Karolina S eybold Respiratory rate 2021-01-25 17:11:00 16 /min Courtney ey Seybold Body height 2021-01-25 17:11:00 157.5 cm Karolina S eybold Body weight 2021-01-25 17:11:00 91.173 kg Karolina S eybold BMI 2021-01-25 17:11:00 36.76 kg/m2 Karolina S eybold Oxygen saturation in 2021-01-25 17:11:00 98 /min Karolina Balesybfreedom Arterial blood by Pulse oximetry Systolic blood 2021-01-18 16:52:00 126 mm[Hg] Karolina Seybold pressure Diastolic blood 2021-01-18 16:52:00 74 mm[Hg] Kelse y Seybold pressure Heart rate 2021-01-18 16:52:00 80 /min Karolina S eybold Body temperature 2021-01-18 16:52:00 36.5 Zulma Courtney ey Seybold Respiratory rate 2021-01-18 16:52:00 14 /min Courtney ey Seybold Body height 2021-01-18 16:52:00 157.5 cm Karolina S eybold Body weight 2021-01-18 16:52:00 91.173 kg Karolina S eybold BMI 2021-01-18 16:52:00 36.76 kg/m2 Karolina S eybold Systolic blood 2020-11-02 17:28:00 117 mm[Hg] Univer sity of [facility] Diastolic blood 2020-11-02 17:28:00 75 mm[Hg] Unive rsity [facility] Heart rate 2020-11-02 17:28:00 80 /min [facility] [place] [facility] Respiratory rate 2020-11-02 17:28:00 20 /min [facility] 2020-11-02 17:28:00 157.5 cm Universi ty of [place] [facility] Body weight 2020-11-02 17:28:00 90.719 kg Universi ty of [place] [facility] BMI 2020-11-02 17:28:00 36.58 kg/m2 Universi ty of [place] [facility] Oxygen saturation in 2020-11-02 17:28:00 99 /min University of Arterial blood by [place] [facility]i parth Pulse oximetry Branch Systolic blood 2020-10-02 04:23:00 124 mm[Hg] Univer sity of pressure [place] [facility] Diastolic blood 2020-10-02 04:23:00 86 mm[Hg] Unive rsity of pressure [place] [facility] Heart rate 2020-10-02 04:23:00 76 /min Universi ty of [place] [facility] Respiratory rate 2020-10-02 04:23:00 17 /min Univ ersity of [place] [facility] Oxygen saturation in 2020-10-02 04:23:00 96 /min University of Arterial blood by [facility] parth Pulse oximetry Branch Body temperature 2020-10-02 03:27:00 37.11 Zulma Univ ersity of [place] [facility] Body height 2020-10-02 03:27:00 157.5 cm Universi ty of [place] [facility] Body weight 2020-10-02 03:27:00 91.173 kg Universi ty of [place] [facility] BMI 2020-10-02 03:27:00 36.76 kg/m2 Universi ty of [place] [facility] Systolic blood 2020-07-20 00:00:00 144 mm[Hg] Univer sity of pressure [place] [facility] Diastolic blood 2020-07-20 00:00:00 90 mm[Hg] Unive rsity of pressure [place] [facility] Heart rate 2020-07-20 00:00:00 69 /min Universi ty of [place] [facility] Respiratory rate 2020-07-20 00:00:00 18 /min Univ ersity of [place] [facility] Oxygen saturation in 2020-07-20 00:00:00 95 /min University of Arterial blood by [place] Medi parth Pulse oximetry Branch Body temperature 2020-07-19 21:57:00 37.22 Zulma Univ ersity of [place] [facility] Body weight 2020-07-19 21:57:00 99.338 kg [facility] BMI 2020-07-19 21:57:00 40.06 kg/m2 [facility] Systolic blood 2019-03-29 03:00:00 112 mm[Hg] Univer sity of pressure [facility] Diastolic blood 2019-03-29 03:00:00 66 mm[Hg] Unive [facility] Heart rate 2019-03-29 03:00:00 76 /min [facility] Respiratory rate 2019-03-29 03:00:00 16 /min [facility] Oxygen saturation in 2019-03-29 03:00:00 98 /min [facility] Arterial blood by [facility] [place] Pulse oximetry [place] Body temperature 2019-03-29 00:03:00 36.39 Zulma [facility] Body height 2019-03-29 00:03:00 157.5 cm [facility] Body weight 2019-03-29 00:03:00 99.791 kg [facility] BMI 2019-03-29 00:03:00 40.24 kg/m2 [facility] Procedures Procedure Date / Time Performing Clinician Source Performed PATHOLOGY OUTSIDE 2021-02-13 00:00:00 Miranda Veliz MD Andleo n INTERPRETATION OSI CT SFT TISS NECK 2021-01-30 15:06:00 Juwan Ardon MD nderson ASSIGNMENT OF BENEFITS 2020-11-02 16:11:47 [facility] LIPASE 2020-10-02 04:35:00 Jose Rodriguez [facility] COMP. METABOLIC PANEL 2020-10-02 04:35:00 Jose Rodriguez [facility] ([id number]) [facility] CBC WITH DIFF 2020-10-02 04:35:00 Jose Rodriguez [facility] URINALYSIS 2020-10-02 04:32:00 Jose Rodriguez [facility] CONSENT/REFUSAL FOR 2020-10-02 03:12:32 Doctor Unassigned, [facility] DIAGNOSIS AND TREATMENT Mulat [facility] COVID-19 (ID NOW RAPID 2020-07-20 00:02:00 Zen Paz [facility] TESTING) Medical Branch LIPASE 2020-07-19 22:26:[address] [facility] COMP. METABOLIC PANEL 2020-07-19 22:26:00 Zen Paz [facility] ([id number]) Medical Branch CBC WITH DIFF 2020-07-19 22:26:[address] [facility] URINALYSIS 2020-07-19 22:26:[address] [facility] NOTICE OF PRIVACY 2020-07-19 21:38:41 Doctor Unanaa, [facility] Mulat [facility] CONSENT/REFUSAL FOR 2020-07-19 21:37:52 Doctor Rosie [facility] DIAGNOSIS AND TREATMENT Mulat [facility] CT ABDOMEN PELVIS W 2019-03-29 02:36:34 Jose Rodriguez [facility] CONTRAST [facility] POCT TEST 2019-03-29 00:48:00 Jose Rodriguez [facility] LIPASE 2019-03-29 00:47:00 Jose Rodriguez [facility] COMP. METABOLIC PANEL 2019-03-29 00:47:00 Jose Rodriguez [facility] ([id number]) [facility] CBC WITH DIFFERENTIAL 2019-03-29 00:47:00 Jose Rodriguez [facility] URINALYSIS 2019-03-29 00:47:00 Jose Rodriguez [facility] NOTICE OF PRIVACY 2019-03-28 23:58:28 Doctor Unabryceigned, [facility] Mulat [facility] CONSENT/REFUSAL FOR 2019-03-28 23:55:31 Doctor Rosie [facility] Start End Encounter Admission Attending Care Care Encounter Source Date/Time Date/Time Type Type Clinicians Facility Department ID 2021-02-21 Outpatient SYSTEM, [facility] [id number] 16:13:12 PROVIDER Kuldip o n 2021-01-[address] [facility] [id number] Univers 12:14:09 [facility] 2021-01-01 Emergency X [facility] ERT [id number] Univers 19:53:57 ity [facility] 2021-01-[address] [facility] [id number] Univers 19:53:02 ity [facility] 2021-03-23 2021-03-23 Outpatient KAROLINA CLAROS [id number] Karolina 00:00:00 00:00:00 ANNABELLA Seybol d 2021-03-23 2021-03-23 Outpatient ANAGERARDOKAROLINA [id number] Karolina 00:00:00 00:00:00 AHMED Seybol d 2021-03-14 2021-03-14 Outpatient KAROLINA CLAROS [id number] Karolina 00:00:00 00:00:00 ANNABELLA Seybol d 2021-03-01 2021-03-01 Outpatient KAROLINA CLAROS [id number] Karolina 00:00:00 00:00:00 ANNABELLA Seybol d 2021-02-28 2021-02-28 Outpatient ERIC ARDON [facility] [id number] 09:05:06 09:05:06 JUWAN guidry 2021-02-09 2021-02-09 Outpatient SATNAM MOORE [id number] Karolina 00:00:00 00:00:00 MD RILEY Seybol d 2021-02-07 2021-02-07 Outpatient KAROLINA MOORE [id number] Karolina 09:50:00 09:50:00 Seybol d 2021-02-07 2021-02-07 Outpatient ESTRELLA PARMAR [id number] Karolina 00:00:00 00:00:00 Seybol d 2021-02-06 2021-02-06 Outpatient ESTRELLA PARMAR [id number] Karolina 00:00:00 00:00:00 Seybol d 2021-02-01 2021-02-01 Outpatient KAROLINA MOORE [id number] Karolina 12:40:00 12:40:00 Seybol d 2021-01-30 2021-01-30 Outpatient KAROLINA LEE [id number] Karolina 00:00:00 00:00:00 EUGENIA Seybol d 2021-01-25 2021-01-25 Office LeeJEAN solis 1.2.840.114 [id number] Karolina 11:30:00 12:00:00 Visit Eugenia Becerra 350.1.13.13 Seybold 1.2.7.2.686 [id number] 2021-01-20 2021-01-20 Outpatient KAROLINA CLAROS [id number] Karolina 00:00:00 00:00:00 ANNABELLA Seybol d 2021-01-18 2021-01-18 Outpatient LAB90 KAROLINA MOORE [id number] Karolina 11:55:00 11:55:00 Seybol d 2021-01-18 2021-01-18 Office Myron Claros 1.2.840.114 [id number] Karolina 10:49:52 11:19:52 Visit Annabella Weaver 350.1.13.13 Se ybold 1.2.7.2.686 [id number] 2020-11-04 2020-11-04 Letter ROBERTA Kaiser 1.2.840.114 [id number] Univers 00:00:00 00:00:00 (Out) Yajaira AJ 350.1.13.10 it y of [facility] 4.2.7.2.686 Gaurang as [id number] [address] 2020-11-02 2020-11-02 Urgent Nasreen Ledezma [facility] 1.2.840.114 [id number] Univers 11:13:05 11:33:05 [facility] 350.1.13.10 ity [facility] 4.2.7.2.686 Gaurang as Bebo?Blea [id number] [address] Medical Office Building 2020-11-02 2020-11-[address] [facility] [id number] -[id number] Univers 11:20:00 11:20:00 [id number] ity [facility] 2020-11-02 2020-11-02 [facility] [id number] Univers 11:20:00 11:20:[address] [facility] 2020-11-02 2020-11-02 Orders Doctor ROBERTA 1.2.840.114 [id number] Univers 00:00:00 00:00:00 Only Unassigned, JEAN MARIE 350.1.13.10 ity of [facility] 4.2.7.2.686 Gaurang as [id number] [address] 2020-10-01 2020-10-02 Emergency Bernardo, [facility] 1.2.890.007 [id number] Univers 22:30:00 01:56:00 Jose Walsh Randall 350.1.13.10 i ty of [place] 4.2.7.2.686 [facility] [phone] [address] 2020-07-19 2020-07-19 Emergency , [facility] 1.2.609.365 [id number] Univers 16:54:00 19:37:00 Zen Randall 350.1.13.10 i ty of [place] 4.2.7.2.686 [facility] [phone] [address] 2020-07-19 2020-07-19 Orders Doctor ROBERTA 1.2.840.114 [id number] Univers 00:00:00 00:00:00 Only Unassigned, JEAN MARIE 350.1.13.10 ity of [place] [facility] 4.2.7.2.686 Gaurang as [phone] [address] 2020-06-07 2020-06-07 Outpatient LAB90 KAROLINA MOORE [id number] Karolina 10:00:00 10:00:00 Seybol d 2020-06-07 2020-06-07 Outpatient ESTRELLA PARMAR [id number] [id number] Karolina 08:30:00 08:30:00 Seybol d 2020-02-04 2020-02-05 Inpatient E NICOLE, BL MED [id number] BL 11:00:00 16:58:00 JOSEPH 2019-09-11 2019-09-11 Laboratory Lab, Adc Fam Pob I [facility] 1.2. 840.114 [id number] Univers 14:09:42 14:29:42 Only Savana Richardson 350.1.13.10 ity of [place] 4.2.7.2.686 Gaurang as Professio [phone] Ar dical [facility] [address] One 2019-09-11 2019-09-[address] [facility] [id number] -[id number] Univers 14:20:00 14:20:[facility] [facility] [id number] Univers 14:20:00 14:20:00 [facility] 2019-07-29 2019-08-01 Outpatient [facility] [id number] Univers 14:08:13 12:04:00 MACK [facility] 2019-03-28 2019-03-28 [facility] 1.2.947.207 [id number] Univers 18:12:42 22:01:00 Jose Pereira 350.1.13.10 i ty [place] 4.2.7.2.686 [facility] [id number] [address] Results Test Description Test Time Test Comments Results Result Comments Source Pathology Outside Interpretation 2021-03-14 14:07:55 Test Item Value Reference Range Interpretation Comme nts Materials z6uooRDgZQNarEGeDzRePLCoOEArw2kfDWRegHTaVgHpFaNaKlKnVgosaCRmIMZrNoHex5jhn301yECr g2hzPWKzLiP0yKJoNVDerIFcV853DWXyAHwqb1woq0RqWZRxwXVen2C9EBTVmpacsMb9iYkqV00yx1U6 ShlrI5bpJQKoYIHzJ2PkHH7tWEVdYcz4PWQ6HYV3EUA Received rGTLhM5GtXP0mUAGanZCxWQv6t6ihyFiwSUTcTBL0x9wjZMtgaxYbAB8cpz3zyWz1k8butsJaSNPaBMV dbNMKALKjD9PknUtuKu6kaIw6sVvfBanmQHV9Ouq4HP8aey67lwe4eZibBQDeofizWbZ4AZpiFXLbwrf oFDj3RRcgBKPhrFwqCUvbMPBkllobSGabSSFkhKH1UD (test code SvaMHfJ9SwYDJvQOhlIUNsrsh5VpDoZa1epVVpsSiqJJwtn6tzk4vuuWOwPaq9SIPaBzHyQfwdSOagu2 Sai1wtAXLhob8iLBK7xSMukLrhk0Y8dZAmERNkcCIuglAhSWRobd27pEFtvOJysPUyvl8gqwFudNOnmH ZvKKX7vOJjpoNpZHCkuRPuJVKvIW6saXHcVBWdaE4xb = 9973) fhgRFJbJfXrevvaIOFneTqpvrWrHw8wxDyeNIM3YOkpG7xrlT8dAtX7OHyxT2opbE4pXDv8AEfppBI3K OKwyS6sOG9ctljgx7xuPnXhZK5zpshss7bkPlOnXT0jwuc2a2moPGY5LHuzIAMrDsN8jlP7GWNltUEwW JLuwUbtRDesb561UOT6OtHeABCbh3XzQ4BmkAfnS67c wPriG81kUPEvjEpnmI3khSzwuM2fQqChItUgZNm3hn30HQo7jcuxfYoySKa6hfGyJCOwZFD3XAYsjGWo CXMgM5v9xnNyKSTsQOB6WPUanCCqPKKqO2i1agRmIGV6TBb4stNxWKKbhJJquHZeOVGbPaGnzDIrITQi WaChCBRtlVUtySMneFUmtM1blRucXCTzkJHicK8tLMA 1BJXokwvlAbNaoBLpVANhsIEkac54UCGteeXltBCdnBpowQZhLOB1EJAvWGVvLSVxFVH9EAJpNzQsjkJ qZFzokKDtAQCbGWNmXWFrTWMjWAC0FCIgPsFrkoVsGAjhrTQlSBDrGIMyRDOwZVBsSBS6FOZgRrNzswA wROmydYTpANXsMBFyZRNvXMQwHIE5VHRjInRjtnCxHE uezPKfXBZxGPsrlVXcRCA5O3aqdWQjIRUiNJqzeBAcFRBgP2awsLGrVEbkZMBkyDXtLvnvQTAicMOvKd TcO3asPGKeRdMfP5KbzPp7OYXyZAAcqyScjFHyiQrrmGZmHVV6RLBvSAFaBEWjITS7MCPiGlDwuiExEM ddbCAcEVDmBBGdXEYdLWTkOWP4UMZkFxOowjZlVRivc HQyKXTiNEHyUOWxKVKjJQW2RWPkOeRadzIbMFvjrVInGHBwWXSgKJEkEGBjHPD0TGUyBnYiwnZiTBdlo OWaCFWvMYinrFXoXNZ4C1pizZHxHFIfULmnaYWqQWGbZ0wihLDcBWjrKNFhpPIvJctyBJRtxDBkWzVeZ 2xtRHPsBrNuG1IoyHg4JlMyAUXixrLyrDEyyCgrePJi DLD5JVVqFSRtQTPjWYG7WSToCjZgdyHzRDsgaVYzRGJwOHZnNCSxGYTwBHU3ETKiWwDlhmYtLDmjmZDx IKVsGCLwHSRlWNMqWWL4SGUrYtGymdVnMCzbgSYzXIWpFEXmYBWyRFWiNSC6ZKKtBvIyxaTwWXloyAXi YZBmNGwwiFKnKXP6P5jvnRNuQBXxEQcxkFKxTDKfO8q koHVmHCbkSCEjhINcTfybGTBkrBMkVuKfG4fiNYOtFqRpL1VrdPs9QoOoXUSrcpWlxQ12Bgahp2RrXRS jRGS9RSbyRGyucSdxaMEumdtwYCbejsTaUMjuajnbFUHcMJpwL6zpPmXvHTDugPfiGGfvv7AeRJKiXSL iYgfgdgMdXUMkUSEcTXYgzK8qGoynC5MfkX1cPBqjAa lrY4ztSAUqc6UwoZ2iVDlbgBKxekpkPCymhqWnPKgryetjFPKdUMezO3hgVcYtLHCpaFxsYSqkn9KuGY DiJKEeNotnvkNmFXf6skVlFGTggEjpeLCgYOgmovFjgHaen4UluxLboSnxUKCjELv2gjLrmilejXl1pC ZmrWwqQYDxlBcirI1aMuCcGtFvHGhznKIbtauxUZgps pEeILeplyddITCyIOybV7oqVzLnWSRzmCsrDSlrl5EfBKVhUDZkFcuawkKqZWCjL25rvBMkhPFvLAFwE FqaGNPxUXZpRbBgzBCrAeYdLtEjdUfhuZyyUYhrNeBcTWFoSGaeH0krBqIhG7CbPURbBnUnmYQwE4xsB 8IomWnyPHSaOIaecITrQGQkbNOyWUU9jSShzdBqgVAl sLTsEJSrVDyxBKL3dZUpgcmvdPJedsnvNFdzunK6GYDoBLmuMGFgHICbFgNtaDEjEcAsQxIovYgriCie EDfsGqGbWXGpAMvbP7wdUoOwW5TvLRDaPvWyZyCJMXQjoZTcPBalqCAteugvJUokshHzJChsxpujJFTa DBtvO5enHbAiCAVvzQqlECaph2DwYIRwEGZoJqabopE iFIf3loCmYXTlsSxrqT83Rprxiu03KZAdf4ehICIbV2CujRDbTFPsrNKuZBfaMJiarBNxMRHyXtrrJTE xnGSjWDKfSZgosJMvQZEcZvVuLODhlYAnLKJlWEClbBHvUFC7L2w8hlHtTQYfRHk9ycHqADVkOlBkvWL kUTZ7AZw3UmqycjX5lHFtE8g5IifdabMaBMcdmSKzct 48MVHrlfXsiPFviFmgbJPjHHA0GXUgGQLsOOEuYLA4RWKrXzPgsjSsIFulxODxBEUoWYFtRBEgTQSeJT J3FZJtOhPhdfZcZEctiKBiCAAnYDWhUVMaFMIxJYU8MEJvBcFclaOsCCrusWEbEDFvAKChFDKjPZCaHG G9VUXhZiCrfgHhKWwurNNaPKQtLWrikTRtXLU8J1mpj EJwWVYyYJjizSAqEAQzN4mlxEHlOJggKARhyDMmJchuYVRkjIDiOdKgC7ooLQYjYeNqH4QoyYz9EPHuI NWpsfLmeWVvdEfcyJFfYWC9MCPyELSbKWVoUAX7HFBiZxPfbvIcRHgtcYYhBXCwNVJuOCUeONAeYNM3C DDyKbZagfMiAErjfYZkGEXoBKRyGDWcVNUuLFA3QSWv TcEqihMeHKgkzXEbNDTtXSNrVWHiZBLyYDQ0UEKuLuKfsaCnJFobfSViENVwEOllvQMvEJK6N9twsZEr LQXrZBtslHQjGTOmP4oisZIwBVdnUBAwxLDmNphsRZWcoYAfDoJnJ7kwHPEaNmQnR7QuqRy2EqBlXXIh elClqZDxlQqujOLvKUS5ZWNuCIZzZEJjCKD2MUUdIyJ jbwXiCJxnoHUrOKHrMBYiKZQdPGYsVWI2GRQpYiUykzFdVIqlbXHaQNSxMVPuTVGqRKNvHFT8WGYqHkU xycLzUZjnbZYtQMQiBECpEWZsCULcIWH2IIRnCfOubvIwFOqogTPmMLQrZLrixLHfSQR1W6zfyYVpBAR bRRzamJGjRNWdN8aqpQBrXXdgMCLweQFyNpuxUPKxmA YrQuEvJ4biNQAdBeNlX2XtkYq9SdCbCIMexqWwtT92Txmtn3ViWMSyFQW3BXvrSByuhSoptGGxdxlcBM kpmdP6FHTeXGdsYTZpYTEuKwDgkLRpEdUkDyBdvXbqmPmuKXqzAvPxWMDnNMyyN1ryJcEoL6IdWSEfEk GtOX0sWtP7STDxFPPaIWNbNBPDMmgnZTDDNK6CM3FbV DPfWNYRRUBlLQvoYNKvVMZzIdHkmDNlQqToFuTijOuxyQtnPWtgNsYiZBUqODsmN0yzXgDgL7OeLGYyQ kVfcIWqS5jvV5HsqGgfWIHoHHkdaGVtJZItlMFzDCF3nJMhgcLwsQzjaVbcjX6zWcAzVkUuCSwheNHno eoaMRnzkkUbFWtzgdslVKRhSFumN7apEsWeGGXvbSlx HKdqv3TmMDLaXJJyBqpogsHsXSNpHmDfWqGvZmIgrYppkA5gWhBjGoOqLDneIQ0sGCUiC7lnkGRwDSSg KUIhG7ofQsUtwP5ozTqbHLbjHjJqLlScUXuotJRicCczGZhpLFZgmcZdxM30Hemmx1HyWBVlUJP2HBae ZUmceElrtZGipmklNWwwtnM0FQXaDHljDTFxVSZmJuG rnLHoPsXhKmJcmQknxLymGMcfPxTdGGBsFZeoT4nvZxMcO0RvVQMtFlQkDN8yBE3eZCLuRUGmBQvsJJS kJRGeNlDzoACuYeXfGfAelKfzrWxiHThkQyImUHFsZHuqO8qpDcPgS4IpIJGvGiCmtRUeI1rsU8FtuMm xezGwdQkzp4klqXJiXYqll2AzpeUcuGihWHByXCUfOS XwRVnvBTAkKDOhTsBgeAslvH5wLwIdPrQrKHheSS9wLCNjP9ircZHpOCKlYBMiT0rmQrShcW2qfTebXR xmczIwXHBhcn0= Diagnosis p2dxfMBzWISjbQC5RjVqGOOdv8tzc3AcdYDciKCtHAnxeOJlhrOhxm59nQF8bU86EY0kKDAsUaY6PRHv bhR5Rpl7HFWjZZLvrSKmH091a7xjj6kvxyHqnEV9DLKyPPFaM7KlXE1uFKTnlFTmT65zjOOeXRX1AKWh BMRmiQZoGHNpRWK4CUBcaPYsR1ebVIRlQY8pwbknNTv (test code gYUolRTCshYJ8FCVpmZOcK4CjBHDgNGenZDLihye5TuHlXj9fjSHsnYgnPNstELZhQEHiHMlrIJXvKiM gQ9CdRWc9bUEkUG6rPWQwDGiuUdYipAFtUIPvmxCkpyqdLOF5F9qjmG7dNOdeQvwskIV0GhbrRVBnQ8Q yCTJqwaecvOwcYPheoY31YvKjYXzLTrRUFHNPEEGQMV = 34) CVMHFWOTnbGIgOWGoGGSWjAPbtGBxvLWhiLS3SRDTSDInWT0VWSSQdNOtHWCmRIPHqOTqFTFEYFUKDSW ijQI9kQTIfROOgaauiISDrLDxbKU1mz7JgEOCzRSgfkkEjZNadts5eusGhYYVudaCwaiYAYWPvoNvcnX 1mxF8ttKdvhn05oCZiZDOsWLLMnM10IyNtevA+OTAtO TUlIFxwYXJccGFyZFxwYXJ9 Comment d0kolFVfFGSxsDY8GqAtYMYfm8qmm9TccWNnuJGlUDypyJEexaGsym41aZX5lP60EC5uEAUxPeD1IOBp rzN5Tvr8HSEpJAKyfRNjG849s9kzs9nynpCtrPH3yIqaJQHgiqouKpD4VXoyZVZjkckwVKk5TDwfRVTt gWK6JCMprDLbU3TtUDKaXF8kakv8FAY9CPnqJTHrKoB (test code 6HVCunGEyVSGkwNhfOYyzs603GKI5RnFuSMBzivXfyGemgI7rYtMrQIYZxQZ5m0yeT5fySJNuQ5Lkr61 wFGLhg8nqsCmfhLwbwk0kFACyauN7sUtmuXD7mMImCTQarFz6AJG9kRSsVQleAJOffM4zyVSpg05ceCS 8FZd0NJTbaWmhA8QzMTM3SAa1qYSoi22uPtSbZB5zvD = 9835) [file] vWBeV1BqDb14QTiiMLONZUNniinlAKC3 Disclaimer e5uqxPXbQOQffNUyWgHjGPKrAESdk3ucIOQklYNdRoFzAwVkUzLjBjeweRAnLSQzZdMbk1nbf274gFXs k5roXJIvXkM8rSJdQVGlzFYuB875ICCoDHoag6ymc0PaHGCykTXss6Q0NOICemchpHm4dYblZ73eb0D4 ZqccA5onDOCfHUZdG2ZpXN5fNXJlJig6RPP9RVA3LPC (test code oRTEwB3RdBN2pYLDvaAGgONm0e9ayzQmfUOMvCGG6n0izXHmhbwDeTD7uqu8rlRd9g0niycKtOUVcXKG lhYSUXYNtV8NayVblBr3xbAc6zCthAyljKOB2Jhj0OK2xpb05iwf8sSsbOVXyvkifHnM9KYjoWABvvpb jTIo6WIrvNKLvaQA3IZHoiRVoT7ZiZCVyBT8hzrj0LB = 9844) N0NHthQZHdAyC7OSTceOMjKOUacMmvULrkp252HXF2EgOyNG5qX7Iiv6M9sC3vuFFzAIUlqUDiOfXxSO Sowu2koVWeTHnsb1ObNHH1ymM1mAFxmKGvOZMbLJ80Jwepp3ViAfgaKWQ9SGFkwlBpb0Ofg3uoQbWtqi DlQ2zsH4UlVTYbKHNdIUPaRsWxziChq6Trr5TzaFHqa Ho3t8znEMPqCXKonAxbv4xlYNW9EMCvK1N2hPZws7bbFTwjCLXujIJ1nwX1UZEubBXnP0JjiM5jVSVjY O8anhx8f2fxVRT8MGyqUXNtRaH6azH5CBQrnAEeVLYavKtvSUyjv977ZHS4NzCqEEWdr7ZjB3EaqJpiO 01otSruN25pXDKtwAhkyM5jmTosoJ8cIiOjTfIrPFgp sJksdEWvlwsfNVleriN0PZmyplbaZVRdFXfqJ0fbFuQiSTWaqRwiSEzra6HwNRXgQKEyMbflniQ4PXHQ l01xJXVbs4QhRSJncB2sfQFiYQaorfFzlAU3XNjbbmLfOxYfpiGhAMZgeB6vVWBsAE8rTENlcsVjqh2h gjZbCMBbZZEqB5KguowdeYlxfjIwJTSshk4ahsJqIIS 5LSLWWA1IZPCeKJNsl90gXYYvxLuckL4ynHFkyyGoTRHvu3LmxT1wmBFMHWQoQ9cpBC4bCVvhe8EjuXC ieJEgiQD5PYNgv0SjGiOsirKssLPepTWjL7GnvWbfG2imLLNhIEAdoxJjxUSnv4WoRTZtuIQ3nODtGO8 LMpRUg55kWDJjLSUKwlWsPCOjwRvebZT2tzE6hS9pMr BPIhUnzKBmhATpCqgqOXFcn756uh8wknB8KLVoJNCdkgbrl2OdKPZlKREkfM83THHtQQDhla3fhhumiO VgdwWgN5Cqfca5oR7aYBBoTDmyHNTnJUDbNsTqeXFqXnWdTeThrLtixBtyVVipTsDyMXFaBLdlH8kbIn FcZnMyMlxwYXJ9 MD Gallagher. METABOLIC PANEL ([id number])2020-10-02 04:58:30 Test Item Value Reference Range Interpretation Comments NA (test code = 138 mmol/L 135-145 4727100136) K (test code = 3.9 mmol/L 3.5-5.0 4915116042) CL (test code = 102 mmol/L 98-108 4875770978) CO2 TOTAL (test code = 25 mmol/L 23-31 2674888460) AGAP (test code = 2-16 0354418287) BUN (test code = 20 mg/dL 7-23 4906665692) GLUCOSE (test code = 96 mg/dL 70-110 5154961199) CREATININE (test code = 0.56 mg/dL 0.50-1.04 8614336719) TOTAL BILI (test code = 0.8 mg/dL 0.1-1.0 4526003357) CALCIUM (test code = 10.2 mg/dL 8.6-10.6 6573432422) T PROTEIN (test code = 8.8 g/dL 6.3-8.2 H 6589679372) ALBUMIN (test code = 4.7 g/dL 3.5-5.0 7948471520) ALK PHOS (test code = 99 U/L 34-122 0303784772) ALTv (test code = 38 U/L 5-35 H 2-6) AST(SGOT) (test code = 31 U/L 13-40 9723132810) eGFR (test code = mL/min/1.73m2 1104107464) SCOTT (test code = SCOTT) Association of [...] tests). Lab Interpretation Abnormal (test code = 37060-3) [facility]57[facility]30 Test Item Value Reference Range Interpretation Comments LIPASE (test code = 2718645421) 243 U/L 0-220 H Lab Interpretation (test code = Abnormal 07660-4) [facility] 04:51:44 Test Item Value Reference Range Interpretation Comments APPEARANCE (test code = Clear Clear 5663264548) COLOR (test code = Yellow Yellow 7728882483) PH (test code = 4.8-8.0 9256338504) SP GRAVITY (test code = 1.003-1.030 5312364224) GLU U QUAL (test code = Normal Normal 2354215325) BLOOD (test code = Negative Negative 1505302295) KETONES (test code = Negative Negative 7734213657) PROTEIN (test code = Negative Negative 2887-8) UROBILIN (test code = Normal Normal 7865220760) BILIRUBIN (test code = Negative Negative 3741500577) NITRITE (test code = Negative Negative 8545898723) LEUK BAILEY (test code = Negative Negative 5170627739) RBC/HPF (test code = See_Comment [Autom ated message] 3935121040) The system [employer] generated this result transmitted ref erence range: 0 - 3 HP F. The reference range was not used to int erpret this result as normal/abnormal . WBC/HPF (test code = See_Comment [Autom ated message] 5289651767) The system [employer] generated this result transmitted ref erence range: 0 - 5 HP F. The reference range was not used to int erpret this result as normal/abnormal . BACTERIA (test code = Negative Negative 7373316694) MUCOUS (test code = Slight Negative LPF A 8468944084) SQ EPITH (test code = HPF 4018650336) Lab Interpretation (test Abnormal code = 78712-0) [facility] YJVJ7912-29-09 04:45:31 Test Item Value Reference Range Interpretation Comments WBC (test code = See_Comment [Automated 8490-2) message] The sy stem which generated this result transmitted reference range : 4.30 - 11.10 10*3/?L. The reference range was not used to interpret this result as normal/abnormal . RBC (test code = See_Comment [Automated 819-8) message] The sy stem which generated this [...] (test code = 38.7 fL 39.0-49.9 L 11686-9) RDW-CV (test code = 12.9 % 12.0-15.5 788-0) PLT (test code = See_Comment [Automated 777-3) message] The sy stem which generated this result transmitted reference range : 166 - 358 10*3/ ?L. The reference r lenard was not used to interpret this result as normal/abnormal . MPV (test code = 9.4 fL 9.5-12.9 L 33389-9) NRBC/100 WBC (test See_Comment [Automat ed code = 7673105960) message] The system which generated this result transmitted reference range : 0.0 - 10.0 /100 WBCs. The refer ence range was not u sed to interpret th is result as normal/abnormal . NRBC x10^3 (test code <0.01 See_Comment [Auto mated = 8043614040) message] The s ystem which generated this result transmitted reference range : 10*3/?L. The reference range was not used to interpret this result as normal/abnormal . GRAN MAT (NEUT) % 52.7 % (test code = 770-8) IMM GRAN % (test code 0.20 % = 1613657202) LYMPH % (test code = 38.2 % 736-9) MONO % (test code = 7.6 % 5905-5) EOS % (test code = 1.0 % 713-8) BASO % (test code = 0.3 % 706-2) GRAN MAT x10^3(ANC) 3.33 10*3/uL 1.88-7.09 (test code = 3569751330) IMM GRAN x10^3 (test <0.03 0.00-0.06 code = 7257903257) LYMPH x10^3 (test code 2.41 10*3/uL 1.32-3.29 = 731-0) MONO x10^3 (test code 0.48 10*3/uL 0.33-0.92 = 742-7) EOS x10^3 (test code = 0.06 10*3/uL 0.03-0.39 711-2) BASO x10^3 (test code <0.03 0.01-0.07 = 704-7) Lab Interpretation Abnormal (test code = 61421-4) [facility]ID NOW RAPID TESTING)2020-07-20 00:25:44 Test Item Value Reference Range Interpretation Comments SARS-CoV-2 Rapid ID NOW Not Detected Not Detected (test code = 39991-4) SCOTT (test code = SCOTT) ID NOW COVID-19 Assay is an isothermal nucleic acid amplification test intended for the qualitative detection of nucleic acid from SARS-CoV-2 viral RNA in nasopharyngeal ([employer]) specimens. It is used under Emergency Use [...] indicated. Lab Interpretation Normal (test code = 21386-3) [facility]. METABOLIC PANEL (31383)2020-07-19 22:47:37 Test Item Value Reference Range Interpretation Comments NA (test code = 139 mmol/L 135-145 2683920499) K (test code = 3.6 mmol/L 3.5-5.0 6706803922) CL (test code = 103 mmol/L 98-108 3090343176) CO2 TOTAL (test code = 27 mmol/L 23-31 9897370933) AGAP (test code = 2-16 2442689456) BUN (test code = 18 mg/dL 7-23 0150791311) GLUCOSE (test code = 98 mg/dL 70-110 8956527522) CREATININE (test code = 0.78 mg/dL 0.50-1.04 8505672079) TOTAL BILI (test code = 0.7 mg/dL 0.1-1.9 5517088177) CALCIUM (test code = 9.9 mg/dL 8.6-10.6 6238593831) T PROTEIN (test code = 7.4 g/dL 6.3-8.2 9525675738) ALBUMIN (test code = 4.3 g/dL 3.5-5.0 9991911840) ALK PHOS (test code = 97 U/L 34-122 8228716451) ALTv (test code = 39 U/L 5-35 H 1742-6) AST(SGOT) (test code = 32 U/L 13-40 1716413430) eGFR (test code = mL/min/1.73m2 7920274421) SCOTT (test code = SCOTT) Association of [...] tests). Lab Interpretation Abnormal (test code = 93708-1) [facility] 22:47:02 Test Item Value Reference Range Interpretation Comments APPEARANCE (test code = Clear Clear 7469979212) COLOR (test code = Yellow Yellow 1906092845) PH (test code = 4.8-8.0 1793568672) SP GRAVITY (test code = 1.003-1.030 7839126557) GLU U QUAL (test code = Normal Normal 1227451120) BLOOD (test code = Negative Negative 2729072762) KETONES (test code = Negative Negative 4343809734) PROTEIN (test code = Negative Negative 2887-8) UROBILIN (test code = Normal Normal 8652921538) BILIRUBIN (test code = Negative Negative 6774825924) NITRITE (test code = Negative Negative 3791611976) LEUK BAILEY (test code = Negative Negative 4251137525) RBC/HPF (test code = See_Comment [Autom ated message] 9366141182) The system [employer] generated this result transmitted ref erence range: 0 - 3 HP F. The reference range was not used to int erpret this result as normal/abnormal . WBC/HPF (test code = See_Comment [Autom ated message] 9552239295) The system [employer] generated this result transmitted ref erence range: 0 - 5 HP F. The reference range was not used to int erpret this result as normal/abnormal . BACTERIA (test code = Negative Negative 8743516973) MUCOUS (test code = Slight Negative LPF A 8918754464) SQ EPITH (test code = HPF 6118351351) Lab Interpretation (test Abnormal code = 46496-6) [facility] 22:46:57 Test Item Value Reference Range Interpretation Comments LIPASE (test code = 7242815048) 277 U/L 0-220 H Lab Interpretation (test code = Abnormal 70998-6) [facility] WITH [id number] 22:37:16 Test Item Value Reference Range Interpretation [...] (test code = 34.9 fL 39.0-49.9 L 43047-1) RDW-CV (test code = 12.0 % 12.0-15.5 788-0) PLT (test code = See_Comment [Automated 777-3) message] The sy stem which generated this result transmitted reference range : 166 - 358 10*3/ ?L. The reference r lenard was not used to interpret this result as normal/abnormal . MPV (test code = 9.7 fL 9.5-12.9 53862-8) NRBC/100 WBC (test See_Comment [Automat ed code = 6538382306) message] The system which generated this result transmitted reference range : 0.0 - 10.0 /100 WBCs. The refer ence range was not u sed to interpret th is result as normal/abnormal . NRBC x10^3 (test code <0.01 See_Comment [Auto mated = 5847388427) message] The s ystem which generated this result transmitted reference range : 10*3/?L. The reference range was not used to interpret this result as normal/abnormal . GRAN MAT (NEUT) % 47.2 % (test code = 770-8) IMM GRAN % (test code 0.40 % = 8481489497) LYMPH % (test code = 43.2 % 736-9) MONO % (test code = 7.5 % 5905-5) EOS % (test code = 1.2 % 713-8) BASO % (test code = 0.5 % 706-2) GRAN MAT x10^3(ANC) 2.69 10*3/uL 1.88-7.09 (test code = 2509846952) IMM GRAN x10^3 (test <0.03 0.00-0.06 code = 8437830995) LYMPH x10^3 (test code 2.46 10*3/uL 1.32-3.29 = 731-0) MONO x10^3 (test code 0.43 10*3/uL 0.33-0.92 = 742-7) EOS x10^3 (test code = 0.07 10*3/uL 0.03-0.39 711-2) BASO x10^3 (test code 0.03 10*3/uL 0.01-0.07 = 704-7) Lab Interpretation Abnormal (test code = 94041-1) [facility] P[facility] W [id number] 02:46:10Postsurgical changes with anastomoses sutures in the rightcolon.2. Fluid-filled loops of normal caliber mid and distal small bowel may be anonspecific enteritis.3. Previous hernia repair. No recurrent hernia.4. No hydronephrosis.5. No free fluid. RL: 4400AF: [id number] END OF REPORT Ordering Physician: JOSE RODRIGUEZ [...] - 03/28/2019 8:47 PM CSTOrdering Physician: JOSE Harrisinical Indication: Abd pain, acute, generalized history colon [...] hernia.4. No hydronephrosis.5. No free fluid.RL: 4400AF: [id number] OF REPORT [facility] [id number] 01:12:00 Test Item Value Reference Range Interpretation Comments NA (test code = 140 mmol/L 135-145 9381425384) K (test code = 3.7 mmol/L 3.5-5 8997954022) CL (test code = 104 mmol/L 98-108 8262665946) CO2 TOTAL (test code = 26 mmol/L 23-31 4366084786) AGAP (test code = 2-16 2778290626) BUN (test code = 10 mg/dL 7-23 8884188723) GLUCOSE (test code = 99 mg/dL 70-110 0280685378) CREATININE (test code = 0.53 mg/dL 0.5-1.04 7354766224) TOTAL BILI (test code = 0.5 mg/dL 0.1-1.8 9546051055) CALCIUM (test code = 9.7 mg/dL 8.6-10.6 4499686706) T PROTEIN (test code = 8.8 g/dL 6.3-8.2 H 0099479403) ALBUMIN (test code = 4.6 g/dL 3.5-5 3992406526) ALK PHOS (test code = 126 U/L 34-122 H 9797937335) ALTv (test code = 63 U/L 5-35 H 1742-6) AST(SGOT) (test code = 45 U/L 13-40 H 8792679517) eGFR Calculation mL/min/1.73m2 (Non-) (test code = 0354057166) eGFR Calculation mL/min/1.73m2 () (test code = 9330290410) SCOTT (test code = SCOTT) Association of [...] tests). Lab Interpretation Abnormal (test code = 34665-5) [facility], [id number] 01:12:00 Test Item Value Reference Range Interpretation Comments LIPASE (test code = 5344085481) 166 U/L 0-220 Lab Interpretation (test code = Normal 62305-7) [facility] Temple[facility]inalysis2020-01-26 01:09:00 Test Item Value Reference Range Interpretation Comments APPEARANCE (test code = Clear Clear 2332611208) COLOR (test code = Yellow Yellow 6461227994) PH (test code = 4.8-8.0 6174137361) SP GRAVITY (test code = 1.003-1.030 7160596836) GLU U QUAL (test code = Normal Normal 2295309159) BLOOD (test code = Negative Negative 7957754871) KETONES (test code = Negative Negative 0583052478) PROTEIN (test code = Negative Negative 2887-8) UROBILIN (test code = Normal Normal 4487217586) BILIRUBIN (test code = Negative Negative 7209892679) NITRITE (test code = Negative Negative 6739334887) LEUK BAILEY (test code = 25/uL Negative A 7015848480) RBC/HPF (test code = See_Comment [Autom ated message] 6140364843) The system [employer] generated this result transmitted ref erence range: 0 - 3 HP F. The reference range was not used to int erpret this result as normal/abnormal . WBC/HPF (test code = See_Comment [Autom ated message] 3753238455) The system [employer] generated this result transmitted ref erence range: 0 - 5 HP F. The reference range was not used to int erpret this result as normal/abnormal . BACTERIA (test code = Negative Negative 6753986186) MUCOUS (test code = Slight Negative LPF A 7178342404) SQ EPITH (test code = HPF 7659785863) Lab Interpretation (test Abnormal code = 02581-8) [facility] WITH [id number] 00:58:00 Test Item Value Reference Range Interpretation [...] (test code = 35.2 fL 39-49.9 L 09503-4) RDW-CV (test code = 12.3 % 12-15.5 788-0) PLT (test code = See_Comment [Automated 777-3) message] The sy stem which generated this result transmitted reference range : 166 - 358 10*3/ ?L. The reference r lenard was not used to interpret this result as normal/abnormal . MPV (test code = 9.3 fL 9.5-12.9 L 78714-3) NRBC/100 WBC (test See_Comment [Automat ed code = 3361618729) message] The system which generated this result transmitted reference range : 0.0 - 10.0 /100 WBCs. The refer ence range was not u sed to interpret th is result as normal/abnormal . NRBC x10^3 (test code <0.01 See_Comment [Auto mated = [id number]) message] The s ystem which generated this result transmitted reference range : 10*3/?L. The reference range was not used to interpret this result as normal/abnormal . GRAN MAT (NEUT) % 51.0 % (test code = 770-8) IMM GRAN % (test code 0.40 % = 1739019427) LYMPH % (test code = 38.3 % 736-9) MONO % (test code = 7.6 % 5905-5) EOS % (test code = 2.1 % 713-8) BASO % (test code = 0.6 % 706-2) GRAN MAT x10^3(ANC) 2.69 10*3/uL 1.88-7.09 (test code = 5423819624) IMM GRAN x10^3 (test <0.03 0-0.06 code = 3379313280) LYMPH x10^3 (test code 2.02 10*3/uL 1.32-3.29 = 731-0) MONO x10^3 (test code 0.40 10*3/uL 0.33-0.92 = 742-7) EOS x10^3 (test code = 0.11 10*3/uL 0.03-0.39 711-2) BASO x10^3 (test code 0.03 10*3/uL 0.01-0.07 = 704-7) Lab Interpretation Abnormal (test code = 16554-5) [id number] 00:48:00 Test Item Value Reference Range Interpretation Comments POCT PREG (test code = 1605) negative On board controls acceptable with present C Line (test code = 3574) POCT PREG LOT # (test code = 3575) [id number] POCT PREG TEST DATE (test 10/02/2019 code = 3576) Lab Interpretation (test code = Normal 94603-7) [facility] [id number] 05:12:00 Test Item Value Reference Range Interpretation [...] SOURCE(BEAKER) (test code Urine, Clean Catch = 2795) SCREEN, [id number] 05:00:00 Test Item Value Reference Range Interpretation Comments TEST URINE (BEAKER) (test Negative code = 583) BASIC METABOLIC [id number] 03:20:00 Test Item Value Reference Range Interpretation [...] m DATA TO CALCULA TE ESTIMATED GFR. [id number] 03:08:00 Test Item Value Reference Range Interpretation Comments MAGNESIUM (BEAKER) 2.0 mg/dL 1.6-2.6 Specimen slightly (test code = 627) hemolyzed [id number] 03:08:00 Test Item Value Reference Range Interpretation Comments PHOSPHORUS (BEAKER) 2.6 mg/dL 2.3-4.7 Specimen slightly (test code = 604) hemolyzed HEPATIC FUNCTION [id number] 03:08:00 Test Item Value Reference Range Interpretation [...] 347) hemolyzed CBC W/PLT COUNT & AUTO [id number] 02:54:00 Test Item Value Reference Range Interpretation [...]
[2021-04-04] MEDS ORDERED: ONDANSETRON 4 MG/2 ML VIAL ONE ×2 (13:52→18:30)
[2021-04-04] MEDS ORDERED: FAMOTIDINE 20 MG/2 ML VIAL IV ONE (13:52)
[2021-04-04] MEDS ORDERED: FENTANYL CITR 100 MCG/2 ML ONE ×2 (13:52→18:34)
[2021-04-04] MEDS ORDERED: NA CHLORIDE 0.9% 1,000 ML ONE (13:52)
[2021-04-04 14:41] LABS: ALT/SGPT 83 U/L (12-78); AST/SGOT 86 U/L (15-37); Alkaline Phosphatase 118 U/L (45-117); BUN Blood Urea Nitrogen 7 mg/dL (7-18); Bicarbonate 28 mmol/L (21-32); Bilirubin Direct 0.4 mg/dL (0-0.2); Bilirubin Total 0.9 mg/dL (0.2-1.0); Glucose Level 109 mg/dL (74-106); Lipase 70 U/L (73-393); Potassium 3.3 mmol/L (3.5-5.1); Protein, Total 7.3 g/dL (6.4-8.2); Sodium Level 136 mmol/L (136-145)
[2021-04-04 14:47] LABS: Hematocrit 53.8 % (36.0-45.0); RBC Red Blood Cell Count 6.47 M/uL (3.86-4.86)
[2021-04-04] MEDS ORDERED: PROMETHAZINE INJ 25 MG/ML AMP ONE (14:59)
[2021-04-04] MEDS ORDERED: NA CHLORIDE 0.9% 2,000 ML ONE (15:17)
[2021-04-04 15:31] LABS: Blood Morphology Comment NOTED (NOT SEEN); Platelet Estimate DECR; Polychromasia 1+
--- NOTE | 2021-04-04 15:39 | RAD REPORT ---
EXAM DESCRIPTION: CTAbdomen Pelvis W Contrast - 04/04/2021 3:28 pm CLINICAL HISTORY: Abdominal pain. diarrhea;Abd pain COMPARISON: Abdomen Pelvis W Contrast dated 09/04/2016; Abdomen Pelvis W Contrast dated 08/09/2015; Abdomen Pelvis W Contrast dated 07/10/2015; CT ABD PELVIS W CONTRAST dated 06/17/2014 TECHNIQUE: Biphasic CT imaging of the abdomen and pelvis was performed with 100 ml non-ionic IV cont rast. All CT scans are performed using dose optimization technique as appropriate and may include automated exposure control or mA/KV adjustment according to patient size. FINDINGS: The lung bases are clear. The liver, spleen, pancreas, adrenal glands and kidneys are within normal limits. Cholecystectomy. Postsurgical changes are present about the colon in the right abdomen. There is mild thickening of th e transverse colon seen suggesting colitis. A bowel obstruction is not present. No free fluid or absc ess. The appendix is not identified as a discrete structure, however, no secondary findings of append icitis are identified. No evidence of significant lymphadenopathy. No suspicious bony findings. IMPRESSION: Mild nonspecific colitis pattern affecting predominantly transverse colon noted.
[2021-04-04 15:50] LABS: Urine Blood Negative (Negative); Urine Glucose Negative (Negative); Urine Protein Negative (Negative)
[2021-04-04 16:29] LABS: SARS-COV-2 RT PCR NEGATIVE (NEGATIVE)
[2021-04-04] MEDS ORDERED: METRONIDAZOLE 500mg IVPB 500 MG/100 ML BAG IV ONE (16:48)
[2021-04-04] MEDS ORDERED: Levofloxacin 750mg IV 750 MG/150 ML BAG IV ONE (16:48)
[2021-04-04] MEDS ORDERED: ACETAMINOPHEN 500 MG TAB PO PRN (16:55)
[2021-04-04] MEDS ORDERED: ALBUTEROL 2.5 MG/3 ML NEB SOL NEB PRN (16:55)
[2021-04-04] MEDS ORDERED: LORAZEPAM 0.5 MG TABLET PO PRN (16:58)
[2021-04-04] MEDS ORDERED: HYDRALAZINE HCL 20 MG/ML VIAL IV PRN (16:58)
[2021-04-04] MEDS ORDERED: Levofloxacin500mg IV 500 MG/100 ML BAG IV SCH (17:00)
--- NOTE | 2021-04-04 17:05 | ER ---
Nurse's Notes [facility] Name: Maris Arias Age: 40 yrs Sex: Female : 1980 Arrival Date: 04/04/2021 Time: 13:20 Bed 5 Private MD: Diagnosis: Colitis;Neutropenia, unspecified Presentation: 04/04 13:22 Chief complaint:. Chief complaint: Patient states: Abd pain and diarrhea - 3 days. Pt ld1 reporting nausea. Coronavirus screen: Vaccine status: Patient reports receiving the 2nd dose of the covid vaccine. Client denies travel out of the [place] in the last 14 days. Ebola Screen: Patient negative for fever greater than or equal to 101.5 degrees Fahrenheit, and additional compatible Ebola Virus Disease symptoms Patient denies exposure to infectious person. Patient denies travel to an Ebola-affected area in the 21 days before illness onset. Initial Sepsis Screen: Does the patient meet any 2 criteria? No. Patient's initial sepsis screen is negative. Does the patient have a suspected source of infection? No. Patient's initial sepsis screen is negative. Risk Assessment: Do you want to hurt yourself or someone else? Patient reports no desire to harm self or others. Onset of symptoms was April 02, 2021. 13:22 Method Of Arrival: Wheelchair ld1 13:22 Acuity: CELESTE 3 ld1 Triage Assessment: 13:25 General: Appears in no apparent distress. comfortable, Behavior is calm, cooperative, ld1 appropriate for age. Pain: Complains of pain in abdomen Pain does not radiate. Pain currently is 8 out of 10 on a pain scale. Quality of pain is described as throbbing, Pain began 2-3 days ago. Is intermittent. Neuro: Level of Consciousness is awake, alert, obeys commands, Oriented to person, place, time, situation. Respiratory: Airway is patent Respiratory effort is even, unlabored, Respiratory pattern is regular, symmetrical. GI: Abdomen is round non-distended, Reports upper abdominal pain, nausea. 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 - Social history:: Smoking status: Patient denies any tobacco usage or history of. Patient/guardian denies using alcohol. Screenin:35 Abuse screen: Denies threats or abuse. Denies injuries from another. Nutritional jg9 screening: No deficits noted. Tuberculosis screening: No symptoms or risk factors identified. Fall Risk None identified. Assessment: 13:35 General: Appears in no apparent distress. Behavior is calm. Pain: Complains of pain in jg9 abdomen Pain currently is 8 out of 10 on a pain scale. GI: Bowel sounds present X 4 quads. Abd is soft X 4 quads Abdomen is tender to palpation X 4 quads. Reports lower abdominal pain, upper abdominal pain, diarrhea, nausea. 14:15 Reassessment: patient not able to tolerate oral contrast(vomiting)-provider aware. jg9 18:47 Reassessment: attempted to call report to floor, advised to try after shift change. jg9 19:15 General: Appears in no apparent distress. Pain: Denies pain. Neuro: Level of mk Consciousness is awake, alert, obeys commands, Oriented to person, place, time, situation. Cardiovascular: Heart tones S1 S2 Capillary refill < 3 seconds in bilateral fingers toes Clubbing of nail beds is absent JVD is absent Patient's skin is warm and dry. Respiratory: Airway is patent Trachea midline Respiratory effort is even, unlabored, Respiratory pattern is regular, symmetrical, Breath sounds are clear. GI: Bowel sounds present X 4 quads. Abd is soft Abdomen is tender to palpation X 4 quads. Reports lower abdominal pain, upper abdominal pain, diarrhea, nausea. : No signs and/or symptoms were reported regarding the genitourinary system. Derm: Skin is intact, is healthy with good turgor, Skin temperature is warm. Musculoskeletal: Circulation, motion, and sensation intact. Capillary refill < 3 seconds, in bilateral fingers. toes. Range of motion: intact in all extremities, 19:52 Reassessment: Patient and/or family updated on plan of care and expected duration. Pain sm5 level reassessed. Patient is alert, oriented x 3, equal unlabored respirations, skin warm/dry/pink. report called to floor. Vital Signs: 13:22 BP 111 / 73; Pulse 103; Resp 18; Temp 98.5; Pulse Ox 96% on R/A; Weight 90.72 kg; ld1 Height 5 ft. 2 in. (157.48 cm); Pain 8/10; 14:00 BP 113 / 65; Pulse 94; Resp 17; Pulse Ox 94% on R/A; jg9 15:00 BP 119 / 71; Pulse 91; Resp 16 S; Pulse Ox 92% on R/A; jg9 16:00 BP 100 / 43; Pulse 91; Resp 16 S; Pulse Ox 96% on R/A; jg9 16:30 BP 96 / 54; Pulse 90; Resp 16 S; Pulse Ox 96% on R/A; jg9 17:00 BP 122 / 67; Pulse 82; Resp 16 S; Pulse Ox 98% on R/A; jg9 17:30 BP 124 / 76; Pulse 85; Resp 14 S; Pulse Ox 99% on R/A; jg9 18:00 BP 122 / 78; Pulse 89; Resp 14 S; Pulse Ox 97% on R/A; jg9 19:52 BP 106 / 64; Pulse 89; Resp 17; Pulse Ox 95% on R/A; sm5 13:22 Body Mass Index 36.58 (90.72 kg, 157.48 cm) ld1 [place] Coma Score: 19:15 Eye Response: spontaneous(4). Verbal Response: oriented(5). Motor Response: obeys mk commands(6). Total: 15. ED Course: 13:20 Patient arrived in ED. ds1 13:25 Triage completed. ld1 13:25 Arm band placed on right wrist. ld1 13:30 Loi Christian PA is PHCP. cp 13:30 Chris Nava MD is Attending Physician. cp 13:31 Maris Mari, ELVIRA is Primary Nurse. jg9 13:35 Patient has correct armband on for positive identification. Bed in low position. Call jg9 light in reach. Side rails up X 1. 13:40 Inserted saline lock: 20 gauge in right antecubital area, using aseptic technique. jg9 Blood collected. 15:28 CT Abd/Pelvis - IV Contrast Only In Process Unspecified. EDMS 17:04 Odalis Snyder MD is Hospitalizing Provider. cp 18:00 No apparent distress. Resting quietly. Patient requests pain medication. anti-emetic. jg9 19:52 No provider procedures requiring assistance completed. Patient admitted, IV remains in [address] Administered Medications: 13:52 Drug: Zofran (Ondansetron) 4 mg Route: IVP; Site: right antecubital; jg9 14:30 Follow up: Response: No adverse reaction; Nausea is decreased jg9 13:54 Drug: NS 0.9% 1000 ml Route: IV; Rate: 1 bolus; Site: right antecubital; jg9 15:45 Follow up: IV Status: Completed infusion; IV Intake: 1000ml jg9 13:54 Drug: fentaNYL (PF) 25 mcg Route: IVP; Site: right antecubital; jg9 14:15 Follow up: Response: No adverse reaction; Pain is decreased jg9 13:56 Drug: Pepcid (famotidine) 20 mg Route: IVP; Site: right antecubital; jg9 14:30 Follow up: Response: No adverse reaction; Nausea is decreased jg9 14:18 CANCELLED (Duplicate Order): fentaNYL (PF) 25 mcg IVP once; RASS on ADMIN: Combtv4, jg9 Very Agttd3, Agttd2, Rstlss1, AlertClm0, Drwsy-1, Lt Sdtn-2, Mod Sdtn-3, Dp Sdtn-4, UnArsble-5 14:18 CANCELLED (Duplicate Order): Zofran (Ondansetron) 4 mg IVP once; over 2 minutes jg9 14:18 CANCELLED (Duplicate Order): Pepcid (famotidine) 20 mg IVP once; dilute with 10 mL 0.9% jg9 NaCl; give over 2 minutes 15:00 Drug: Phenergan (promethazine) 25 mg Route: IVP; Site: right antecubital; jg9 15:14 Follow up: Response: No adverse reaction; Nausea is decreased jg9 15:45 Drug: NS 0.9% 1000 ml Route: IV; Rate: 1 bolus; Site: right antecubital; jg9 17:47 Follow up: IV Status: Completed infusion; IV Intake: 1000ml jg9 16:53 Drug: metroNIDAZOLE 500 mg Volume: 100 ml; Route: IVPB; Infused Over: 30 mins; Site: jg9 right antecubital; 17:31 Follow up: IV Status: Completed infusion; IV Intake: 100ml jg9 17:30 Drug: LevaQUIN (levofloxacin) 750 mg Volume: 150 ml; Route: IVPB; Infused Over: 90 jg9 mins; Site: right antecubital; 18:41 Drug: fentaNYL (PF) 25 mcg Route: IVP; Site: right antecubital; jd3 18:46 Follow up: Response: Pain is decreased jg9 18:41 Drug: Zofran (Ondansetron) 4 mg Route: IVP; Site: right antecubital; jd3 18:46 Follow up: Response: Nausea is decreased jg9 19:00 Drug: NS 0.9% 1000 ml Route: IV; Rate: 125 ml/hr; Site: right antecubital; sm5 Point of Care Testing: Urine : 15:30 hCG Reading: Negative; Control Reading: Positive; jg9 Intake: 15:45 IV: 1000ml; Total: 1000ml. jg9 17:31 IV: 100ml; Total: 1100ml. jg9 17:47 IV: 1000ml; Total: 2100ml. jg9 Outcome: 17:04 Decision to Hospitalize by Provider. cp 19:26 Admitted to Med/surg accompanied by nurse, via wheelchair, with chart, Report called to caryn Antonio RN 19:26 Condition: stable 19:26 Instructed on the need for admit. 20:03 Patient left the ED. caryn Signatures: Dispatcher [facility] Tania Stubbs dsLoi Maurice PA PA cp Jay Hicks RN RN jd3 Patience Avilez RN RN ld1 Adamaris Lion RN RN sage5 Maris Mari RN RN jg9 Cynthia Ramon RN RN mk Corrections: (The following items were deleted from the chart) 15:06 15:05 Response: No change in condition; Nausea is decreased jg9 jg9 15:07 15:05 Response: Pain is decreased jg9 jg9 15:07 15:06 Response: Nausea is decreased jg9 jg9 18:41 15:00 Zofran (Ondansetron) 4 mg IVP in right antecubital jd3 jd3
--- NOTE | 2021-04-04 17:05 | EDPHYS ---
Physician Documentation [facility] Name: Maris Arias Age: 40 yrs Sex: Female : 1980 Arrival Date: 04/04/2021 Time: 13:20 Bed 5 Private MD: ED Physician Chris Nava HPI: 04/04 13:50 This 40 yrs old Female presents to ER via Wheelchair with complaints of Abdominal Pain. cp 13:50 The patient presents with abdominal pain that is diffuse, diarrhea since Saturday. cp Associated signs and symptoms: Pertinent positives: anorexia, Pertinent negatives: chest pain, constipation, dysuria, fever, vomiting. The symptoms are described as crampy. 13:50 Patient reports history of non-Hodgkins' lymphoma and receiving first corrales of chemo last cp week. Patient reports receiving Nulasta shot after chem. DR Reyna is her oncologist. 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 - Social history:: Smoking status: Patient denies any tobacco usage or history of. Patient/guardian denies using alcohol. ROS: 13:55 Constitutional: Positive for poor PO intake, Negative for body aches, chills, fever. cp 13:55 Cardiovascular: Negative for chest pain. cp 13:55 Respiratory: Negative for cough, shortness of breath, wheezing. 13:55 Eyes: Negative for injury, pain, redness, and discharge. cp 13:55 ENT: Negative for ear pain, sore throat, difficulty swallowing, difficulty handling secretions. 13:55 Abdomen/GI: Positive for abdominal pain, nausea, diarrhea, anorexia, Negative for constipation, black/tarry stool, rectal bleeding. 13:55 : Negative for urinary symptoms. cp 13:55 Neuro: Negative for altered mental status, dizziness, headache, weakness. 13:55 All other systems are negative. Exam: 14:00 Constitutional: The patient appears in no acute distress, alert, awake, non-toxic, well cp developed, well nourished. 14:00 Head/Face: Normocephalic, atraumatic. cp 14:00 Eyes: Periorbital structures: appear normal, Conjunctiva: normal, no exudate, no injection, Sclera: no appreciated abnormality, Lids and lashes: appear normal, bilaterally. 14:00 ENT: External ear(s): are unremarkable, Nose: is normal, Mouth: Lips: moist, Oral mucosa: moist, Posterior pharynx: Airway: no evidence of obstruction, patent. 14:00 Neck: ROM/movement: is normal, is supple, without pain, no range of motions limitations. 14:00 Chest/axilla: Inspection: normal. 14:00 Cardiovascular: Rate: tachycardic, Rhythm: regular. 14:00 Respiratory: the patient does not display signs of respiratory distress, Respirations: normal, no use of accessory muscles, no retractions, labored breathing, is not present, Breath sounds: are clear throughout, no decreased breath sounds, no stridor, no wheezing. 14:00 Abdomen/GI: Inspection: abdomen appears normal, Bowel sounds: active, all quadrants, Palpation: soft, in all quadrants, mild abdominal tenderness, in the right lower quadrant and left lower quadrant, rebound tenderness, is not appreciated, involuntary guarding, is not appreciated. 14:00 Back: pain, is absent, ROM is normal. 14:00 Skin: no rash present. 14:00 Neuro: Orientation: is normal, Mentation: is normal, Motor: moves all fours, strength is normal, Sensation: is normal. Vital Signs: 13:22 BP 111 / 73; Pulse 103; Resp 18; Temp 98.5; Pulse Ox 96% on R/A; Weight 90.72 kg; ld1 Height 5 ft. 2 in. (157.48 cm); Pain 8/10; 14:00 BP 113 / 65; Pulse 94; Resp 17; Pulse Ox 94% on R/A; jg9 15:00 BP 119 / 71; Pulse 91; Resp 16 S; Pulse Ox 92% on R/A; jg9 16:00 BP 100 / 43; Pulse 91; Resp 16 S; Pulse Ox 96% on R/A; jg9 16:30 BP 96 / 54; Pulse 90; Resp 16 S; Pulse Ox 96% on R/A; jg9 17:00 BP 122 / 67; Pulse 82; Resp 16 S; Pulse Ox 98% on R/A; jg9 17:30 BP 124 / 76; Pulse 85; Resp 14 S; Pulse Ox 99% on R/A; jg9 18:00 BP 122 / 78; Pulse 89; Resp 14 S; Pulse Ox 97% on R/A; jg9 19:52 BP 106 / 64; Pulse 89; Resp 17; Pulse Ox 95% on R/A; sm5 13:22 Body Mass Index 36.58 (90.72 kg, 157.48 cm) ld1 [place] Coma Score: 19:15 Eye Response: spontaneous(4). Verbal Response: oriented(5). Motor Response: obeys mk commands(6). Total: 15. MDM: 13:39 Patient medically screened. cp 16:25 Physician consultation: Molly Bowman MD was contacted at 16:25, regarding cp patient's condition, would like medications started, Levaquin, metronidazole. 17:05 Data reviewed: vital signs, nurses notes, lab test result(s), radiologic studies, CT cp scan, I have discussed the patient's presentation/case with the attending Emergency Department Physician; and as a result, I will admit patient. 17:05 Physician consultation: Odalis Snyder MD was contacted at 17:05, regarding admission, cp to the medical/surgical unit. patient's condition. 04/04 13:45 Order name: Basic Metabolic Panel; Complete Time: 15:08 cp 04/04 15:08 Interpretation: Normal except: K 3.3; GLUC 109. cp 04/04 13:45 Order name: CBC with Diff cp 04/04 15:08 Interpretation: Normal except: WBC 0.40; RBC 6.47; HGB 18.2; HCT 53.8; PLT 61; RDW 12.0.cp 04/04 13:45 Order name: Hepatic Function; Complete Time: 15:08 cp 04/04 16:21 Interpretation: Normal except: AST 86; ALT 83; ALK 118; BILID 0.4; ALB 3.0; GLOB 4.3; cp A/G 0.7. 04/04 13:45 Order name: Lipase; Complete Time: 15:08 cp 04/04 13:45 Order name: Lactate; Complete Time: 15:08 cp 04/04 13:45 Order name: Procalcitonin; Complete Time: 15:43 cp 04/04 13:45 Order name: Blood Culture Adult (2); Complete Time: 18:00 cp 04/04 13:45 Order name: Ova And Parasites cp 04/04 13:45 Order name: Rotavirus Antigen; Complete Time: 18:00 cp 04/04 13:45 Order name: Stool Culture cp 04/04 13:45 Order name: CDIFF; Complete Time: 18:00 cp 04/04 14:54 Order name: COVID-19/FLU A+B (Document "Date of Onset" if Symptomatic); Complete Time: cp 18:00 04/04 15:30 Order name: Manual Differential EDMS 04/04 15:43 Interpretation: Normal except: SEGS 14; BANDS [F] 4; LYM 56; EOS 10; META 6. cp 04/04 15:50 Order name: Urine Dipstick-Ancillary; Complete Time: 16:18 EDMS 04/04 14:31 Order name: CT Abd/Pelvis - IV Contrast Only; Complete Time: 15:43 cp 04/04 15:44 Interpretation: Report reviewed. cp 04/04 15:55 Order name: Urine --Ancillary (enter results); Complete Time: 16:18 bd 04/04 17:05 Order name: Magnesium; Complete Time: 18:00 EDMS 04/04 17:05 Order name: Thyroid Stimulating Hormone; Complete Time: 18:00 EDMS 04/04 13:45 Order name: IV Saline Lock; Complete Time: 14:17 cp 04/04 13:45 Order name: Labs collected and sent; Complete Time: 14:17 cp 04/04 13:45 Order name: Urine Dipstick-Ancillary (obtain specimen); Complete Time: 16:15 cp 04/04 13:45 Order name: Urine Test (obtain specimen); Complete Time: 16:15 cp 04/04 17:05 Order name: CONS Physician Consult EDMS 04/04 17:05 Order name: Regular EDMS 04/04 18:09 Order name: Clear Liquid EDMS Administered Medications: 13:52 Drug: Zofran (Ondansetron) 4 mg Route: IVP; Site: right antecubital; jg9 14:30 Follow up: Response: No adverse reaction; Nausea is decreased jg9 13:54 Drug: NS 0.9% 1000 ml Route: IV; Rate: 1 bolus; Site: right antecubital; jg9 15:45 Follow up: IV Status: Completed infusion; IV Intake: 1000ml jg9 13:54 Drug: fentaNYL (PF) 25 mcg Route: IVP; Site: right antecubital; jg9 14:15 Follow up: Response: No adverse reaction; Pain is decreased jg9 13:56 Drug: Pepcid (famotidine) 20 mg Route: IVP; Site: right antecubital; jg9 14:30 Follow up: Response: No adverse reaction; Nausea is decreased jg9 14:18 CANCELLED (Duplicate Order): fentaNYL (PF) 25 mcg IVP once; RASS on ADMIN: Combtv4, jg9 Very Agttd3, Agttd2, Rstlss1, AlertClm0, Drwsy-1, Lt Sdtn-2, Mod Sdtn-3, Dp Sdtn-4, UnArsble-5 14:18 CANCELLED (Duplicate Order): Zofran (Ondansetron) 4 mg IVP once; over 2 minutes jg9 14:18 CANCELLED (Duplicate Order): Pepcid (famotidine) 20 mg IVP once; dilute with 10 mL 0.9% jg9 NaCl; give over 2 minutes 15:00 Drug: Phenergan (promethazine) 25 mg Route: IVP; Site: right antecubital; jg9 15:14 Follow up: Response: No adverse reaction; Nausea is decreased jg9 15:45 Drug: NS 0.9% 1000 ml Route: IV; Rate: 1 bolus; Site: right antecubital; jg9 17:47 Follow up: IV Status: Completed infusion; IV Intake: 1000ml jg9 16:53 Drug: metroNIDAZOLE 500 mg Volume: 100 ml; Route: IVPB; Infused Over: 30 mins; Site: jg9 right antecubital; 17:31 Follow up: IV Status: Completed infusion; IV Intake: 100ml jg9 17:30 Drug: LevaQUIN (levofloxacin) 750 mg Volume: 150 ml; Route: IVPB; Infused Over: 90 jg9 mins; Site: right antecubital; 18:41 Drug: fentaNYL (PF) 25 mcg Route: IVP; Site: right antecubital; jd3 18:46 Follow up: Response: Pain is decreased jg9 18:41 Drug: Zofran (Ondansetron) 4 mg Route: IVP; Site: right antecubital; jd3 18:46 Follow up: Response: Nausea is decreased jg9 19:00 Drug: NS 0.9% 1000 ml Route: IV; Rate: 125 ml/hr; Site: right antecubital; 5 Point of Care Testing: Urine : 15:30 hCG Reading: Negative; Control Reading: Positive; jg9 Disposition Summary: 04/04/21 17:04 Hospitalization Ordered Hospitalization Status: Inpatient Admission cp Provider: Odalis Snyder [facility] cp Condition: Stable cp Problem: new cp Symptoms: have improved cp Bed/Room Type: Standard cp Room Assignment: 214(04/04/21 18:35) bd Diagnosis - Colitis cp - Neutropenia, unspecified cp Forms: - Medication Reconciliation Form cp - SBAR form cp Addendum: 04/08/2021 07:08 Co-signature as Attending Physician, Chris Nava MD I agree with the assessment and r n plan of care. Attestation: The patient's history, exam findings, diagnostics, and a summary of any interventions or procedures was reviewed in detail with Loi CONLEY. Signatures: Dispatcher [employer] EDKaitlyn Ortez Roman, MD MD rn Page, Corey, PA PA cp Davies, Jonathon RN RN jd3 Patience Avilez RN RN ld1 Adamaris Lion RN RN sm5 Maris Mari RN RN jg9 Corrections: (The following items were deleted from the chart) 04/04 14:18 14:18 fentaNYL (PF) 25 mcg IVP once; RASS on ADMIN: Combtv4, Very Agttd3, Agttd2, jg9 Rstlss1, AlertClm0, Drwsy-1, Lt Sdtn-2, Mod Sdtn-3, Dp Sdtn-4, UnArsble-5 ordered. jg9 14:18 14:18 Zofran (Ondansetron) 4 mg IVP once; over 2 minutes ordered. jg9 jg9 14:18 14:18 Pepcid (famotidine) 20 mg IVP once; dilute with 10 mL 0.9% NaCl; give over 2 jg9 minutes ordered. jg9 14:57 13:53 Abdomen Pelvis W Con+CT.RAD.BRZ ordered. EDMS EDMS 18:35 17:04 cp bd
--- NOTE | 2021-04-04 17:22 | P.HP ---
Certification for Inpatient With expected LOS: >2 Midnights Patient will require the following post-hospital care: None Practitioner: I am a practitioner with admitting privileges, knowledge of patient current condition, hospital course, and medical plan of care. Services: Services provided to patient in accordance with Admission requirements found in Title 42 Section 412.3 of the Code of Federal Regulations Patient History Date of Service: 04/04/21 Reason for admission: Diarrhea and weakness History of Present Illness: 40-year-old female with past medical history of Crohn's disease, depression, recently diagnosed non-Hodgkin's lymphoma initiated on chemotherapy with R-CHOP 1 week agostates she had 2 daily split doseswith a subsequent dose of Neulasta given next day, follows with Dr. Ryena; develop worsening abdominal pain which is generalized crampy and intermittent in pattern associated with worsening of her chronic diarrhea. She states she typically moves her bowels 6-7 times per day but since the last 3 days she will be having bowel movements which is typically watery with no hematochezia roughly every 10 to 20 minutes. She has had mild nausea and decreased p.o. intake but denies any vomiting prior to arrival in the ED today. She was brought in by the spouse because of progressive weakness and decreased p.o. intake. She stated past history of C. difficile. She denies any recent antibiotics use. On arrival in the emergency room she was borderline hypotensive, elevated hemoglobin of 18, WBC was noted low at 0.4, potassium was slightly low. CT of the abdomen shows evidence of colitis mainly around the transverse colon. She has been admitted for with chemo induced neutropenia and severe dehydration Allergies No Known Allergies Allergy (Verified 02/08/21 11:59) Home Medications: Estradiol [Estrace] 0.5 mg PO DAILY 02/08/21 Fluoxetine HCl [Prozac] 40 mg PO DAILY 02/08/21 Ustekinumab [Stelara] 130 mg SQ ONCE 02/08/21 - Past Medical/Surgical History Diabetic: No -: CROHNS -: DEPRESSION -: TUBAL LIGATION -: HYSTERECTOMY -: Intestinal resection 2004 - Family History Mother -: Other (see notes) Notes: Cronhs disease dad -: Cancer Notes: bladder cancer. - Social History Smoking Status: Never smoker Smoking therapy provided: No Patient receptive to therapy: No Alcohol use: No CD- Drugs: No Caffeine use: Yes Place of Residence: Home Review of Systems General: Weakness ENT: Ear Pain, Ear Discharge, Nose Pain, Nose Discharge, Nose Congestion, Mouth Pain, Mouth Swelling, Throat Pain, Throat Swelling, Other, As per HPI, Un remarkable Respiratory: Cough, Dry, Shortness of Breath, Hemoptysis, SOB with Excertion, Pleuritic Pain, Sputum, Wheezing, Other, As per HPI, Unremarkable Cardiovascular: Light Headedness Gastrointestinal: Nausea, Vomiting, Abdominal Pain, Diarrhea Genitourinary: Dysuria, Frequency, Urgency, Incontinence, Hematuria, Retention, Other, As per HPI, Unremarkable Musculoskeletal: Atrophy, Neck Pain Integumentary: Rash, Lesions, Jaundice, Bruising, Other, As per HPI, Unremarkable Neurological: Weakness Physical Examination - Physical Exam General: Alert, Cooperative, Obese HEENT: Atraumatic, Normocephalic, PERRLA Neck: Supple, 2+ carotid pulse no bruit, JVD not distended Respiratory: Clear to auscultation bilaterally, Normal air movement Cardiovascular: No edema, Normal pulses, Regular rate/rhythm, Normal S1 S2 Gastrointestinal: Normal bowel sounds, Soft and benign, Non-distended, No ascites, Tenderness (mild - gen ) Musculoskeletal: No clubbing, No swelling Integumentary: No rashes, No breakdown Neurological: Normal gait, Normal speech, Normal strength at 5/5 x4 extr, Normal tone External genitalia: No edema, No lesions - Studies Laboratory Data (last 24 hrs) 04/04/21 14:00: WBC 0.40 L*, Hgb 18.2 H, Hct 53.8 H, Plt Count 61 L* 04/04/21 14:00: Sodium 136, Potassium 3.3 L, BUN 7, Creatinine 0.57, Glucose 109 H, Total Bilirubin 0.9, AST 86 H, ALT 83 H, Alkaline Phosphatase 118 H, Lipase 70 L Assessment and Plan - Problems (Diagnosis) (1) Colitis Current Visit: Yes Status: Acute (2) Abdominal pain Onset Date: 04/05/16 Current Visit: No Status: Acute Discharge Plan: Home - Advance Directives Does patient have a Living Will: No Does patient have a Durable POA for Healthcare: No - Code Status/Comfort Care Code Status: Full Code Physician Review: Patient Assessed, Agree with Above Assessment and Plan Physician Review Additional Text: Impression Pancolitispossibly due to infectious etiology rule out C. difficile History of Crohn's disease History of non-Hodgkin's leukemiaon chemotherapy Dehydrationdue to acute on chronic diarrhea Hypokalemia Severe neutropenia/thrombocytopenia History of depression Plan We will admit patient to inpatient status -We will keep patient in neutropenic precaution isolation Start Neulasta/Prografinix 480 mcg daily -We will consult oncologyDr. Pant -Start empiric antibiotics with IV Levaquin and p.o. Flagyl for presumed C. difficile Obtain stool for culture and C. difficile toxins Aggressively start IVF with NS and KCl Replete potassium today Follow magnesium level DVT prophylaxis subcutaneous heparin Advanced directivefull code Disposition possible hospital stay for 48 to 72 hours Time Spent Managing Pts Care (In Minutes): 65
[2021-04-04 17:49] LABS: Thyroid Stimulating Hormone 1.07 uIU/mL (0.360-3.740)
[2021-04-04] MEDS ORDERED: POTASSIUM 25 MEQ EFFERV TAB PO ONE (18:00)
[2021-04-04] MEDS: NS KCL 20MEQ 20 MEQ/1,000 ML BAG IV SCH (21:22)
[2021-04-04] MEDS: FLUOXETINE 20 MG CAP PO SCH (21:53)
[2021-04-04] MEDS: metroNIDAZOLE 500 MG TABLET PO SCH (21:53)
[2021-04-04] MEDS: PROMETHAZINE INJ 25 MG/ML AMP IV PRN (21:55)
[2021-04-04] MEDS: MORPHINE 2 MG/ML SYR IV PRN (22:00)
[2021-04-04] MEDS: TBO-FILGRASTIM 480 MCG/0.8 ML SYR SQ SCH (22:10)
[2021-04-05 00:01] VITALS: BMI 36.6
[2021-04-05] MEDS: NS KCL 20MEQ 20 MEQ/1,000 ML BAG IV SCH ×4 (00:52→22:31)
[2021-04-05] MEDS: ONDANSETRON 4 MG/2 ML VIAL IV PRN ×2 (01:32→18:09)
[2021-04-05] MEDS: MORPHINE 2 MG/ML SYR IV PRN ×5 (01:38→18:09)
[2021-04-05] MEDS: PROMETHAZINE INJ 25 MG/ML AMP IV PRN ×3 (05:36→20:52)
[2021-04-05 05:47] LABS: Absolute Lymphocytes (CBC) 0.5 K/uL (0.7-4.9); Hematocrit 30.3 % (36.0-45.0); Lymphocytes % 18.4 % (15.3-44.8); MPV 7.3 fL (7.6-11.3); RBC Red Blood Cell Count 3.59 M/uL (3.86-4.86)
[2021-04-05 06:01] LABS: ALT/SGPT 148 U/L (12-78); AST/SGOT 63 U/L (15-37); Albumin 2.5 g/dL (3.4-5.0); Alkaline Phosphatase 135 U/L (45-117); BUN Blood Urea Nitrogen 3 mg/dL (7-18); Bicarbonate 26 mmol/L (21-32); Bilirubin Total 0.6 mg/dL (0.2-1.0); Glucose Level 109 mg/dL (74-106); Potassium 3.6 mmol/L (3.5-5.1); Sodium Level 140 mmol/L (136-145)
[2021-04-05] MEDS: ESTRADIOL 0.5 MG PO SCH (09:00)
[2021-04-05] MEDS ORDERED: HOME MED 1 EA UNK (Fluoxetine Hcl [Prozac] 40 MG Capsule) PO SCH (09:00)
[2021-04-05] MEDS: FLUOXETINE 20 MG CAP PO SCH (09:20)
[2021-04-05] MEDS: metroNIDAZOLE 500 MG TABLET PO SCH ×2 (09:20→13:47)
[2021-04-05] MEDS: TBO-FILGRASTIM 480 MCG/0.8 ML SYR SQ SCH (09:20)
[2021-04-05 09:38] LABS: Blood Morphology Comment NOT SEEN (NOT SEEN); Platelet Estimate DECR; White Blood Cell Scan OK (OK)
--- NOTE | 2021-04-05 09:50 | P.PN ---
Subjective Date of Service: 04/05/21 Chief Complaint: Diarrhea and weakness Subjective: No new changes (She continues to have watery diarrhea. Denies fever. She has mild abdominal cramps.) Physical Examination - Vital Signs Temperature: 97.5 F Blood Pressure: 116/56 Pulse: 84 Respirations: 18 Pulse Ox (%): 96 - Physical Exam General: In no apparent distress HEENT: Atraumatic, Normocephalic Respiratory: Other (Unlabored breathing) Cardiovascular: No edema Gastrointestinal: Soft and benign, Non-distended Musculoskeletal: No clubbing, No swelling, No contractures Neurological: Normal speech, Normal affect - Studies Laboratory Data (last 24 hrs) 04/04/21 14:00: Magnesium 2.0 04/04/21 14:00: WBC 0.40 L*, Hgb 18.2 H, Hct 53.8 H, Plt Count 61 L* 04/04/21 14:00: Sodium 136, Potassium 3.3 L, BUN 7, Creatinine 0.57, Glucose 109 H, Total Bilirubin 0.9, AST 86 H, ALT 83 H, Alkaline Phosphatase 118 H, Lipase 70 L Assessment & Plan Physician Review: Patient Assessed, Agree with Above Assessment and Plan Physician Review Additional Text: Assessment Patient is a 40-year-old female with a known past medical history of Crohn's disease and non-Hodgkin's lymphoma. She is currently being treated for colitis after she presented with abdominal pain and watery diarrhea. Impression Pancolitispossibly due to infectious etiology rule out C. difficile Generalized weakness History of Crohn's disease History of non-Hodgkin's leukemiaon chemotherapy Hypokalemia Severe neutropenia/thrombocytopenia History of depression Plan Continue volume repletion with IV fluids Continue empiric antibiotics with Levaquin and Flagyl Follow-up stool cultures including C. difficile Monitor her electrolytes Continue neutropenic isolation She is on Neulasta 480 mcg daily. A consult is been placed to her oncologistd DVT prophylaxis subcutaneous heparin Advanced directivefull code
[2021-04-05 12:52] LABS: C.diff Antigen/Toxin Ag pos : Tox pos (NEG : NEG)
[2021-04-05] MEDS ORDERED: VANCOMYCIN ORAL SOLN 250 MG/5 ML OSYR PO SCH (15:20)
[2021-04-05] MEDS: FIDAXOMICIN 200 MG TABLET PO SCH ×2 (16:49→20:03)
[2021-04-05] MEDS: GABAPENTIN 300 MG CAP PO SCH (20:03)
[2021-04-05] MEDS ORDERED: FENTANYL CITR 100 MCG/2 ML IV ONE (20:21)
[2021-04-06] MEDS: NS KCL 20MEQ 20 MEQ/1,000 ML BAG IV SCH ×3 (01:00→13:46)
[2021-04-06] MEDS: ONDANSETRON 4 MG/2 ML VIAL IV PRN ×3 (02:06→19:48)
[2021-04-06] MEDS: MORPHINE 2 MG/ML SYR IV PRN ×4 (02:06→19:47)
[2021-04-06 07:37] LABS: Absolute Lymphocytes (CBC) 1.1 K/uL (0.7-4.9); Hematocrit 31.2 % (36.0-45.0); Lymphocytes % 6.2 % (15.3-44.8); MPV 7.8 fL (7.6-11.3); RBC Red Blood Cell Count 3.66 M/uL (3.86-4.86)
[2021-04-06 08:02] LABS: ALT/SGPT 82 U/L (12-78); AST/SGOT 23 U/L (15-37); Albumin 2.6 g/dL (3.4-5.0); Alkaline Phosphatase 140 U/L (45-117); BUN Blood Urea Nitrogen 2 mg/dL (7-18); Bicarbonate 24 mmol/L (21-32); Bilirubin Total 0.3 mg/dL (0.2-1.0); Glucose Level 108 mg/dL (74-106); Potassium 3.4 mmol/L (3.5-5.1); Sodium Level 140 mmol/L (136-145)
[2021-04-06] MEDS: ESTRADIOL 0.5 MG PO SCH (09:00)
[2021-04-06 09:26] LABS: Anisocytosis SLIGHT; Blood Morphology Comment NOTED (NOT SEEN); Platelet Estimate ADEQ
[2021-04-06 09:29] LABS: Dohle Bodies PRESENT; Toxic Granulation PRESENT
[2021-04-06] MEDS: FLUOXETINE 20 MG CAP PO SCH (10:00)
--- NOTE | 2021-04-06 10:07 | P.PN ---
Subjective Date of Service: 04/06/21 Chief Complaint: Diarrhea and weakness Subjective: No new changes (Having abdominal cramps. Will try GI cocktail today.) Physical Examination - Vital Signs Temperature: 97.2 F Blood Pressure: 128/71 Pulse: 98 Respirations: 18 Pulse Ox (%): 97 - Physical Exam General: In no apparent distress, Cooperative HEENT: Atraumatic, Normocephalic Gastrointestinal: Soft and benign, Non-distended Musculoskeletal: No clubbing, No swelling, No contractures Neurological: Normal speech, Normal affect - Studies Laboratory Data (last 24 hrs) 04/04/21 14:00: Magnesium 2.0 Assessment And Plan - Current Problems (Diagnosis) (1) C. difficile colitis Current Visit: Yes Status: Acute (2) Crohn disease Current Visit: Yes Status: Acute (3) Non-Hodgkin lymphoma Current Visit: Yes Status: Acute (4) Pancytopenia Current Visit: Yes Status: Acute (5) Abdominal pain Onset Date: 04/05/16 Current Visit: No Status: Acute Physician Review: Patient Assessed, Agree with Above Assessment and Plan Physician Review Additional Text: Assessment Patient is a 40-year-old female with a known past medical history of Crohn's disease and non-Hodgkin's lymphoma. She is currently being treated for colitis after she presented with abdominal pain and watery diarrhea. She tested positive for c. difficile. This will be her 4th episode. She has been previously with PO vancomycin, but no more than 7 days. Impression C. difficile colitis Hypokalemia Generalized weakness History of Crohn's disease History of non-Hodgkin's leukemiaon chemotherapy Severe neutropenia/thrombocytopenia History of depression Plan Continue volume repletion with IV fluids Day 2 of Fidoxamycin. Will plan to treat for 10 days. Levofloxacin and flagyl have been discontinued Monitor her electrolytes Continue neutropenic isolation She is on Neulasta 480 mcg daily. A consult is been placed to her oncologist SCD for DVT ppx due to low PLT
[2021-04-06] MEDS: FIDAXOMICIN 200 MG TABLET PO SCH ×2 (11:16→22:36)
[2021-04-06] MEDS: GABAPENTIN 300 MG CAP PO SCH ×2 (11:16→22:32)
[2021-04-06] MEDS: KCL 20 MEQ/100 mL IVPB 20 MEQ/100 ML BAG IV SCH ×2 (11:30→13:05)
[2021-04-06] MEDS: TBO-FILGRASTIM 480 MCG/0.8 ML SYR SQ SCH ×2 (11:35→22:32)
[2021-04-06] MEDS: MAGNES/ALUMIN/SIMET 30ML UCUP PO SCH ×2 (13:02→22:32)
[2021-04-06] MEDS: DIPHENHYDRAMINE 12.5MG/5ML LIQ PO SCH ×2 (13:02→22:32)
[2021-04-06] MEDS: LIDOCAINE VISCOUS 2% SOLN 15 ML UDC PO SCH ×3 (13:09→21:00)
[2021-04-06] MEDS ORDERED: HYDROMORPHONE HCL 1 MG/ML INJ IV ONE (13:15)
[2021-04-06] MEDS: PROMETHAZINE INJ 25 MG/ML AMP IV PRN (13:45)
[2021-04-07] MEDS: MORPHINE 2 MG/ML SYR IV PRN ×6 (00:30→21:09)
[2021-04-07] MEDS: PROMETHAZINE INJ 25 MG/ML AMP IV PRN ×3 (00:30→17:33)
[2021-04-07] MEDS: NS KCL 20MEQ 20 MEQ/1,000 ML BAG IV SCH ×3 (00:31→15:27)
[2021-04-07] MEDS: ONDANSETRON 4 MG/2 ML VIAL IV PRN ×3 (05:07→21:07)
[2021-04-07 08:36] LABS: Absolute Lymphocytes (CBC) 2.2 K/uL (0.7-4.9); Lymphocytes % 4.7 % (15.3-44.8); MPV 7.1 fL (7.6-11.3); RBC Red Blood Cell Count 3.74 M/uL (3.86-4.86)
[2021-04-07] MEDS: LIDOCAINE VISCOUS 2% SOLN 15 ML UDC PO SCH ×3 (08:51→19:38)
[2021-04-07] MEDS: MAGNES/ALUMIN/SIMET 30ML UCUP PO SCH ×3 (08:52→21:06)
[2021-04-07 08:53] LABS: Phosphorus 1.6 mg/dL (2.5-4.9); Potassium 4.1 mmol/L (3.5-5.1)
[2021-04-07] MEDS: GABAPENTIN 300 MG CAP PO SCH ×2 (08:53→21:06)
[2021-04-07] MEDS: FLUOXETINE 20 MG CAP PO SCH (08:53)
[2021-04-07] MEDS: DIPHENHYDRAMINE 12.5MG/5ML LIQ PO SCH ×3 (08:53→21:00)
[2021-04-07] MEDS: ESTRADIOL 0.5 MG PO SCH (08:54)
[2021-04-07] MEDS: FIDAXOMICIN 200 MG TABLET PO SCH ×2 (09:00→21:06)
--- NOTE | 2021-04-07 10:28 | P.PN ---
Subjective Date of Service: 04/07/21 Chief Complaint: Diarrhea and weakness Subjective: No new changes Physical Examination - Vital Signs Temperature: 98.6 F Blood Pressure: 110/58 Pulse: 109 Respirations: 16 Pulse Ox (%): 98 - Physical Exam General: Alert, In no apparent distress HEENT: Atraumatic, Normocephalic Cardiovascular: Normal pulses, Regular rate/rhythm, Normal S1 S2 Musculoskeletal: No clubbing, No swelling, No contractures Neurological: Normal speech, Normal affect Assessment And Plan - Current Problems (Diagnosis) (1) C. difficile colitis Current Visit: Yes Status: Acute (2) Crohn disease Current Visit: Yes Status: Acute (3) Non-Hodgkin lymphoma Current Visit: Yes Status: Acute (4) Pancytopenia Current Visit: Yes Status: Acute (5) Abdominal pain Onset Date: 04/05/16 Current Visit: No Status: Acute Physician Review: Patient Assessed, Agree with Above Assessment and Plan Physician Review Additional Text: Assessment Patient is a 40-year-old female with a known past medical history of Crohn's disease and non-Hodgkin's lymphoma. She is currently being treated for colitis after she presented with abdominal pain and watery diarrhea. She tested positive for c. difficile. This will be her 4th episode. She has been previously with PO vancomycin, but no more than 7 days. Impression C. difficile colitis Hypokalemia Generalized weakness History of Crohn's disease History of non-Hodgkin's leukemiaon chemotherapy Severe neutropenia/thrombocytopenia History of depression Plan Continue volume repletion with IV fluids Day 3 of Fidoxamycin. Will plan to treat for 10 days. Levofloxacin and flagyl have been discontinued I will consult ID due to lack of progress Pharmacy consulted for medications review due to recurrent c. difficile infections Hold Filgrastim due to Leukocytosis Continue neutropenic isolation SCD for DVT ppx due to low PLT
[2021-04-07] MEDS: LACTOBACILLUS/ACIDOPHILUS TAB PO SCH ×2 (13:04→21:07)
--- NOTE | 2021-04-07 13:32 | P.PN ---
Subjective Date of Service: 04/07/21 Chief Complaint: Diarrhea and weakness Patient is a 40-year-old female with a past medical history of Crohn's, recurrent C. difficile, and recently diagnosed non-Hodgkin's lymphoma who presented to the hospital secondary to increased watery bowel movements. C. difficile toxin/antigen positive. Patient states that this is her fourth time being treated for C. difficile. Past treatments included oral vancomycin. We will try for Doxy mycin for a total of 10-day course. If patient fails this treatment she will likely need a fecal transplant. Patient reports watery mucus containing bowel movements, nausea, and abdominal cramping. Patient denies nausea/shortness of breath/chest pain. Review of Systems 10-point ROS is otherwise unremarkable Physical Examination - Vital Signs Temperature: 97.4 F Blood Pressure: 114/59 Pulse: 113 Respirations: 16 Pulse Ox (%): 94 - Physical Exam General: Alert, In no apparent distress HEENT: Atraumatic, Normocephalic Neck: Supple, 2+ carotid pulse no bruit Respiratory: Clear to auscultation bilaterally, Normal air movement Capillary refill: <2 Seconds Gastrointestinal: Normal bowel sounds Musculoskeletal: No swelling, No contractures Assessment And Plan - Plan Antibiotics: Fidaxomicin day 3/10 Assessment/plan 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 In the past she has only been treated with oral vancomycin. Continue fidaxomicin for 10 days. If patient fails this treatment she will likely need a fecal transplant. Continue contact precautions Recently diagnosed non-Hodgkin's lymphoma Patient currently receiving chemotherapy, labs show leukopenia/leukocytosis. Patient remains afebrile. Plan of care discussed with Dr. Navarro Thank you for consultation. Physician Review: Patient Assessed, Agree with Above Assessment and Plan Physician Review Additional Text: Assessment Patient is a 40-year-old female with a known past medical history of Crohn's disease and non-Hodgkin's lymphoma. She is currently being treated for colitis after she presented with abdominal pain and watery diarrhea. She tested positive for c. difficile. This will be her 4th episode. She has been previo usly with PO vancomycin, but no more than 7 days. Impression C. difficile colitis Hypokalemia Generalized weakness History of Crohn's disease History of non-Hodgkin's leukemiaon chemotherapy Severe neutropenia/thrombocytopenia History of depression Plan Continue volume repletion with IV fluids Day 3 of Fidoxamycin. Will plan to treat for 10 days. Levofloxacin and flagyl have been discontinued I will consult ID due to lack of progress Pharmacy consulted for medications review due to recurrent c. difficile infections Hold Filgrastim due to Leukocytosis Continue neutropenic isolation SCD for DVT ppx due to low PLT
[2021-04-07 15:23] LABS: Magnesium 1.7
[2021-04-07] MEDS ORDERED: POTASSIUM PHOS 30 MM in NA CHLORIDE 0.9% 500 ML IV ONE (17:00)
[2021-04-08] MEDS: MORPHINE 2 MG/ML SYR IV PRN ×5 (03:15→23:13)
[2021-04-08] MEDS: NS KCL 20MEQ 20 MEQ/1,000 ML BAG IV SCH ×4 (05:02→21:00)
[2021-04-08] MEDS: ONDANSETRON 4 MG/2 ML VIAL IV PRN ×3 (05:03→23:13)
[2021-04-08 07:12] LABS: Absolute Lymphocytes (CBC) 1.5 K/uL (0.7-4.9); Hematocrit 33.3 % (36.0-45.0); Lymphocytes % 4.2 % (15.3-44.8); MPV 7.1 fL (7.6-11.3); RBC Red Blood Cell Count 3.87 M/uL (3.86-4.86)
[2021-04-08] MEDS: PROMETHAZINE INJ 25 MG/ML AMP IV PRN ×2 (08:23→18:30)
[2021-04-08] MEDS: GABAPENTIN 300 MG CAP PO SCH ×2 (08:24→21:24)
[2021-04-08] MEDS: CHOLESTYRAMINE/ASP 4 GM/PKT PO SCH (08:24)
[2021-04-08] MEDS: FLUOXETINE 20 MG CAP PO SCH (08:24)
[2021-04-08] MEDS: LACTOBACILLUS/ACIDOPHILUS TAB PO SCH ×3 (08:24→21:24)
[2021-04-08] MEDS: ESTRADIOL 0.5 MG PO SCH (08:25)
[2021-04-08] MEDS: DIPHENHYDRAMINE 12.5MG/5ML LIQ PO SCH ×3 (08:25→21:00)
[2021-04-08] MEDS: LIDOCAINE VISCOUS 2% SOLN 15 ML UDC PO SCH ×3 (08:26→21:00)
[2021-04-08] MEDS: MAGNES/ALUMIN/SIMET 30ML UCUP PO SCH ×3 (08:26→21:00)
[2021-04-08 08:27] LABS: BUN Blood Urea Nitrogen 3 mg/dL (7-18); Bicarbonate 22 mmol/L (21-32); Glucose Level 92 mg/dL (74-106); Phosphorus 3.1 mg/dL (2.5-4.9); Potassium 4.6 mmol/L (3.5-5.1); Sodium Level 138 mmol/L (136-145)
[2021-04-08] MEDS: FIDAXOMICIN 200 MG TABLET PO SCH ×2 (08:44→21:24)
--- NOTE | 2021-04-08 10:23 | P.PN ---
Subjective Date of Service: 04/08/21 Chief Complaint: Diarrhea and weakness Subjective: Improving (Diarrhea is less frequent. Patient advised to use probiotics) Physical Examination - Vital Signs Temperature: 97.0 F Blood Pressure: 112/53 Pulse: 80 Respirations: 18 Pulse Ox (%): 98 - Physical Exam General: Alert, In no apparent distress, Cooperative, Obese HEENT: Atraumatic, Normocephalic Neurological: Normal speech, Normal affect Assessment And Plan - Current Problems (Diagnosis) (1) C. difficile colitis Current Visit: Yes Status: Acute (2) Crohn disease Current Visit: Yes Status: Acute (3) Non-Hodgkin lymphoma Current Visit: Yes Status: Acute (4) Pancytopenia Current Visit: Yes Status: Acute (5) Abdominal pain Onset Date: 04/05/16 Current Visit: No Status: Acute Physician Review: Patient Assessed, Agree with Above Assessment and Plan Physician Review Additional Text: Assessment Patient is a 40-year-old female with a known past medical history of Crohn's disease and non-Hodgkin's lymphoma. She is currently being treated for colitis after she presented with abdominal pain and watery diarrhea. She tested positive for c. difficile. This will be her 4th episode. She has been previously with PO vancomycin, but no more than 7 days. Impression C. difficile colitis Hypokalemia Generalized weakness History of Crohn's disease History of non-Hodgkin's leukemiaon chemotherapy Severe neutropenia/thrombocytopenia History of depression Plan Day 3 of 10 of Fidoxamycin. Will plan to treat for 10 days. She is starting to respond Continue holding Filgrastim due to Leukocytosis Continue neutropenic isolation SCD for DVT ppx due to low PLT
[2021-04-08 14:10] LABS: Magnesium 2.1
--- NOTE | 2021-04-08 14:26 | RAD REPORT ---
EXAM DESCRIPTION: RAD - Abdomen 1 View ([facility]) - 04/08/2021 2:07 pm CLINICAL HISTORY: Abdomen pain. FINDINGS: The bowel gas pattern is unremarkable. Surgical suture right abdomen. No significant abnormal calcification seen
[2021-04-09] MEDS: MORPHINE 2 MG/ML SYR IV PRN ×5 (05:35→21:58)
[2021-04-09] MEDS: PROMETHAZINE INJ 25 MG/ML AMP IV PRN ×3 (05:35→21:58)
[2021-04-09 07:59] LABS: Absolute Lymphocytes (CBC) 1.5 K/uL (0.7-4.9); Hematocrit 34.3 % (36.0-45.0); MPV 6.9 fL (7.6-11.3); RBC Red Blood Cell Count 3.99 M/uL (3.86-4.86)
[2021-04-09] MEDS: GABAPENTIN 300 MG CAP PO SCH ×2 (08:44→21:58)
[2021-04-09] MEDS: CHOLESTYRAMINE/ASP 4 GM/PKT PO SCH (08:44)
[2021-04-09] MEDS: LACTOBACILLUS/ACIDOPHILUS TAB PO SCH ×4 (08:44→21:58)
[2021-04-09] MEDS: FLUOXETINE 20 MG CAP PO SCH (08:45)
[2021-04-09] MEDS: DIPHENHYDRAMINE 12.5MG/5ML LIQ PO SCH ×3 (08:45→21:00)
[2021-04-09] MEDS: MAGNES/ALUMIN/SIMET 30ML UCUP PO SCH ×3 (08:45→21:00)
[2021-04-09] MEDS: LIDOCAINE VISCOUS 2% SOLN 15 ML UDC PO SCH ×3 (08:47→21:00)
[2021-04-09] MEDS: ESTRADIOL 0.5 MG PO SCH (08:47)
[2021-04-09] MEDS: NS KCL 20MEQ 20 MEQ/1,000 ML BAG IV SCH ×2 (08:52→16:49)
[2021-04-09 09:01] LABS: Blood Morphology Comment NOT SEEN (NOT SEEN); Platelet Estimate DECR; Polychromasia 1+
[2021-04-09] MEDS: FIDAXOMICIN 200 MG TABLET PO SCH ×2 (09:39→21:58)
[2021-04-09] MEDS: ONDANSETRON 4 MG/2 ML VIAL IV PRN ×2 (09:42→17:43)
[2021-04-09] MEDS ORDERED: PANTOPRAZOLE 40 MG INJ IVP SCH (10:02)
[2021-04-09] MEDS ORDERED: SODIUM CHLORIDE 0.9% 10ML INJ IV PRN ×2 (10:02→12:56)
--- NOTE | 2021-04-09 10:06 | P.PN ---
Subjective Date of Service: 04/09/21 Chief Complaint: Diarrhea and weakness Subjective: Improving (Patient is having chest pain and nausea.) Physical Examination - Vital Signs Temperature: 97.1 F Blood Pressure: 109/53 Pulse: 90 Respirations: 18 Pulse Ox (%): 99 - Physical Exam General: Cooperative, Mild distress, Obese HEENT: Atraumatic, Normocephalic Respiratory: Other (not dyspneic) Musculoskeletal: No clubbing, No swelling, No contractures Neurological: Normal speech, Normal affect Assessment And Plan - Current Problems (Diagnosis) (1) C. difficile colitis Current Visit: Yes Status: Acute (2) Crohn disease Current Visit: Yes Status: Acute (3) Non-Hodgkin lymphoma Current Visit: Yes Status: Acute (4) Pancytopenia Current Visit: Yes Status: Acute (5) Abdominal pain Onset Date: 04/05/16 Current Visit: No Status: Acute Physician Review: Patient Assessed, Agree with Above Assessment and Plan Physician Review Additional Text: Assessment Patient is a 40-year-old female with a known past medical history of Crohn's disease and non-Hodgkin's lymphoma. She is currently being treated for colitis after she presented with abdominal pain and watery diarrhea. She tested positive for c. difficile. This will be her 4th episode. She has been previously with PO vancomycin, but no more than 7 days. She is doing better on fidoxamycin here. She is staying an additional day as she is having chest pain today. Impression Chest pain C. difficile colitis - no signs of toxic megacolon on AXR Chest pain Hypokalemia Generalized weakness History of Crohn's disease History of non-Hodgkin's leukemiaon chemotherapy Severe neutropenia/thrombocytopenia - resolved History of depression Plan Day 4 of 10 of Fidoxamycin. Will plan to treat for 10 days. CXR/EKG/trop for chest pain Will hold off PPI trial due to recurrent c. difficile Check electrolytes and replace as needed Continue holding Filgrastim due to Leukocytosis Continue neutropenic isolation SCD for DVT ppx due to low PLT
--- NOTE | 2021-04-09 11:20 | RAD REPORT ---
EXAM DESCRIPTION: RAD - Chest Single View - 04/09/2021 10:23 am CLINICAL HISTORY: chest pain Chest pain. COMPARISON: Abdomen 1 View ([facility]) dated 04/08/2021; Chest Single View dated 09/04/2016; CHEST PA AND LAT 2 VIEW dated 01/25/2015; ABDOMEN ACUTE SERIES dated 06/24/2014 FINDINGS: Portable technique limits examination quality. The lungs are grossly clear. The heart is normal in size. No displaced fractures. IMPRESSION: No acute intrathoracic process suspected.
[2021-04-09 12:30] LABS: CKMB Creatine Kinase MB < 1.0 ng/mL (1.0-3.6)
[2021-04-09] MEDS ORDERED: PANTOPRAZOLE 40 MG INJ IVP ONE (12:56)
[2021-04-09] MEDS ORDERED: NITROGLYCERIN 0.4 MG/TAB SL ONE (12:56)
[2021-04-10] MEDS: NS KCL 20MEQ 20 MEQ/1,000 ML BAG IV SCH ×3 (00:40→17:57)
[2021-04-10] MEDS: MORPHINE 2 MG/ML SYR IV PRN ×3 (02:55→13:48)
[2021-04-10] MEDS: CHOLESTYRAMINE/ASP 4 GM/PKT PO SCH (08:00)
[2021-04-10] MEDS: ESTRADIOL 0.5 MG PO SCH (09:00)
[2021-04-10] MEDS: MAGNES/ALUMIN/SIMET 30ML UCUP PO SCH ×3 (09:00→20:23)
[2021-04-10] MEDS: LIDOCAINE VISCOUS 2% SOLN 15 ML UDC PO SCH ×3 (09:00→20:25)
[2021-04-10] MEDS: DIPHENHYDRAMINE 12.5MG/5ML LIQ PO SCH ×3 (09:00→20:24)
[2021-04-10] MEDS: ONDANSETRON 4 MG/2 ML VIAL IV PRN ×2 (09:13→20:24)
[2021-04-10] MEDS: GABAPENTIN 300 MG CAP PO SCH ×2 (09:14→20:23)
[2021-04-10] MEDS: FLUOXETINE 20 MG CAP PO SCH (09:14)
[2021-04-10] MEDS: LACTOBACILLUS/ACIDOPHILUS TAB PO SCH ×3 (09:15→20:24)
[2021-04-10] MEDS: FIDAXOMICIN 200 MG TABLET PO SCH ×2 (09:29→20:23)
--- NOTE | 2021-04-10 11:33 | EKG ---
Test Date: 2021-04-09 Test Time: 10:34:51 Cashier Courtesy Booth: [facility]NA MEASUREMENT RESULTS: Intervals: Rate: 76 DE: 154 QRSD: 78 QT: 386 QTc: 434 [place]: P: 39 DE: 154 QRS: 57 T: 56 INTERPRETIVE STATEMENTS: Normal sinus rhythm Normal ECG Compared to ECG 09/04/2016 16:36:35 Sinus tachycardia no longer present Right-axis deviation no longer present Electronically Signed On 04-10-21 11:30:35 STRADDLE CARRIER OPERATOR by Asa Mistry
[2021-04-10] MEDS: PROMETHAZINE INJ 25 MG/ML AMP IV PRN (13:47)
[2021-04-10] MEDS ORDERED: HYDROMORPHONE HCL 1 MG/ML INJ IV ONE ×2 (15:30→19:43)
--- NOTE | 2021-04-10 16:52 | P.PN ---
Subjective Date of Service: 04/10/21 Chief Complaint: Diarrhea and weakness Patient seen and examined at bedside, states diarrhea is improving. Denies mucus/blood in stool. Review of Systems 10-point ROS is otherwise unremarkable Physical Examination - Vital Signs Temperature: 96.9 F Blood Pressure: 98/58 Pulse: 89 Respirations: 18 Pulse Ox (%): 98 - Studies Laboratory Last Values WBC 0.40 K/uL (4.3-10.9) L* 04/04/21 14:00 RBC 6.47 M/uL (3.86-4.86) H 04/04/21 14:00 Hgb 18.2 g/dL (12.0-15.0) H 04/04/21 14:00 Hct 53.8 % (36.0-45.0) H 04/04/21 14:00 MCV 83.2 fL (80-100) 04/04/21 14:00 MCH 28.1 pg (27.0-35.0) 04/04/21 14:00 MCHC 33.8 g/dL (32.0-36.0) 04/04/21 14:00 RDW 12.0 % (12.1-15.2) L 04/04/21 14:00 Plt Count 61 K/uL (152-406) L* 04/04/21 14:00 MPV 8.0 fL (7.6-11.3) 04/04/21 14:00 Neutrophils % % (41.7-73.7) 04/04/21 14:00 Lymphocytes % SOFTWARE CONTROLS ENGINEER 04/04/21 14:00 Absolute Neutrophils SOFTWARE CONTROLS ENGINEER 04/04/21 14:00 Segmented Neutrophils 14 % (40-80) L 04/04/21 14:00 Band Neutrophils 4 % (0-1) H 04/04/21 14:00 Absolute Lymphocytes SOFTWARE CONTROLS ENGINEER 04/04/21 14:00 Lymphocytes 56 % (15-42) H 04/04/21 14:00 Monocytes 10 % (0-10) 04/04/21 14:00 Absolute Monocytes SOFTWARE CONTROLS ENGINEER 04/04/21 14:00 Eosinophils 10 % (0-3) H 04/04/21 14:00 Absolute Eosinophils SOFTWARE CONTROLS ENGINEER 04/04/21 14:00 Absolute Basophils SOFTWARE CONTROLS ENGINEER 04/04/21 14:00 Metamyelocytes 6 % (0-0) H 04/04/21 14:00 Diff Path Review Yes 04/04/21 14:00 Platelet Estimate Decr 04/04/21 14:00 Polychromasia 1+ 04/04/21 14:00 Morphology Comment Noted (NOT SEEN) 04/04/21 14:00 Sodium 136 mmol/L (136-145) 04/04/21 14:00 Potassium 3.3 mmol/L (3.5-5.1) L 04/04/21 14:00 Chloride 101 mmol/L (98-107) 04/04/21 14:00 Carbon Dioxide 28 mmol/L (21-32) 04/04/21 14:00 BUN 7 mg/dL (7-18) 04/04/21 14:00 Creatinine 0.57 mg/dL (0.55-1.3) 04/04/21 14:00 Estimated GFR > 90 mL/min (=/>90) 04/04/21 14:00 Glucose 109 mg/dL (74-106) H 04/04/21 14:00 Lactic Acid 1.6 mmol/L (0.4-2.0) 04/04/21 14:10 Calcium 9.2 mg/dL (8.5-10.1) 04/04/21 14:00 Magnesium 2.0 04/04/21 14:00 Total Bilirubin 0.9 mg/dL (0.2-1.0) 04/04/21 14:00 Direct Bilirubin 0.4 mg/dL (0-0.2) H 04/04/21 14:00 AST 86 U/L (15-37) H 04/04/21 14:00 ALT 83 U/L (12-78) H 04/04/21 14:00 Alkaline Phosphatase 118 U/L (45-117) H 04/04/21 14:00 Serum Total Protein 7.3 g/dL (6.4-8.2) 04/04/21 14:00 Albumin 3.0 g/dL (3.4-5.0) L 04/04/21 14:00 Globulin 4.3 g/dL (2.3-3.5) H 04/04/21 14:00 Albumin/Globulin Ratio 0.7 (1.1-1.8) L 04/04/21 14:00 Lipase 70 U/L (73-393) L 04/04/21 14:00 Procalcitonin < 0.05 ng/mL (<0.050) 04/04/21 14:00 TSH 1.070 uIU/mL (0.360-3.740) 04/04/21 14:00 Urine pH 6.0 (5.0-7.0) 04/04/21 15:47 Ur Specific [place] 1.010 (1.005-1.030) 04/04/21 15:47 Glucose (UA)(Auto) Negative (Negative) 04/04/21 15:47 Urine Ketones Negative (Negative) 04/04/21 15:47 Urine Blood Negative (Negative) 04/04/21 15:47 Urine Nitrite Negative (Negative) 04/04/21 15:47 Ur Leukocyte Esterase Negative (Negative) 04/04/21 15:47 Urine Total Protein Negative (Negative) 04/04/21 15:47 Ur Specific [place] (HCG) 1.010 (1.005-1.030) 04/04/21 15:55 Urine Test Neg (NEG) 04/04/21 15:55 Influenza Type A RNA Negative (NEGATIVE) 04/04/21 14:54 Influenza Type B RNA Negative (NEGATIVE) 04/04/21 14:54 SARS-CoV-2 RNA (RT-PCR) Negative (NEGATIVE) 04/04/21 14:54 Microbiology Data (last 24 hrs): 04/04/21 14:50 Blood - Blood Aerobic Blood Culture - Final No growth in 5 days. 04/04/21 14:50 Blood - Blood Anaerobic Blood Culture - Final No growth in 5 days. 04/04/21 14:10 Blood - Blood Aerobic Blood Culture - Final No growth in 5 days. 04/04/21 14:10 Blood - Blood Anaerobic Blood Culture - Final No growth in 5 days. Assessment And Plan - Plan Antibiotics: Fidaxomicin day 5/10 Assessment/plan 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 In the past she has only been treated with oral vancomycin. Continue fidaxomicin for 10 days. If patient fails this treatment she will likely need a fecal transplant. Continue contact precautions. Patient placed on probiotics and Questran. Recently diagnosed non-Hodgkin's lymphoma Patient currently receiving chemotherapy, labs show leukopenia/leukocytosis. Patient remains afebrile. Plan of care discussed with Dr. Navarro Thank you for consultation. Physician Review: Patient Assessed, Agree with Above Assessment and Plan
[2021-04-10] MEDS: DICYCLOMINE HCL 10 MG CAP PO SCH (20:24)
[2021-04-11] MEDS ORDERED: MORPHINE 4 MG/ML SYR IV ONE (00:11)
[2021-04-11] MEDS: ONDANSETRON 4 MG/2 ML VIAL IV PRN ×4 (00:18→18:19)
[2021-04-11] MEDS: NS KCL 20MEQ 20 MEQ/1,000 ML BAG IV SCH ×4 (01:00→21:36)
[2021-04-11] MEDS: MORPHINE 4 MG/ML SYR IV PRN ×3 (05:20→18:18)
[2021-04-11] MEDS: CHOLESTYRAMINE/ASP 4 GM/PKT PO SCH (08:45)
[2021-04-11] MEDS: FIDAXOMICIN 200 MG TABLET PO SCH ×2 (09:00→21:00)
[2021-04-11] MEDS: MAGNES/ALUMIN/SIMET 30ML UCUP PO SCH ×3 (09:00→21:00)
[2021-04-11] MEDS: ESTRADIOL 0.5 MG PO SCH (09:00)
[2021-04-11] MEDS: DIPHENHYDRAMINE 12.5MG/5ML LIQ PO SCH ×3 (09:00→21:00)
[2021-04-11] MEDS: LIDOCAINE VISCOUS 2% SOLN 15 ML UDC PO SCH ×3 (09:00→21:00)
[2021-04-11] MEDS: LACTOBACILLUS/ACIDOPHILUS TAB PO SCH ×3 (09:45→21:38)
[2021-04-11] MEDS: FLUOXETINE 20 MG CAP PO SCH (09:45)
[2021-04-11] MEDS: DICYCLOMINE HCL 10 MG CAP PO SCH (09:45)
[2021-04-11] MEDS: GABAPENTIN 300 MG CAP PO SCH ×2 (09:45→21:37)
[2021-04-11 11:54] LABS: BUN Blood Urea Nitrogen 7 mg/dL (7-18); Bicarbonate 25 mmol/L (21-32); Glucose Level 105 mg/dL (74-106); Potassium 4.1 mmol/L (3.5-5.1); Sodium Level 137 mmol/L (136-145)
[2021-04-11 12:10] LABS: Absolute Lymphocytes (CBC) 1.2 K/uL (0.7-4.9); Hematocrit 33.6 % (36.0-45.0); Lymphocytes % 8.6 % (15.3-44.8); MPV 7.4 fL (7.6-11.3); RBC Red Blood Cell Count 3.95 M/uL (3.86-4.86)
[2021-04-11] MEDS: DIPHENOX/ATROP SULF 1 TAB PO PRN ×2 (13:42→21:37)
[2021-04-11] MEDS: HYDROCODONE/APAP 10/325 TAB PO PRN ×2 (13:42→21:38)
--- NOTE | 2021-04-11 16:40 | P.PN ---
Subjective Date of Service: 04/11/21 Chief Complaint: Diarrhea and weakness Patient seen and examined at bedside, no acute events. Review of Systems 10-point ROS is otherwise unremarkable Physical Examination - Vital Signs Temperature: 97.4 F Blood Pressure: 99/51 Pulse: 71 Respirations: 16 Pulse Ox (%): 96 - Studies Laboratory Last Values WBC 0.40 K/uL (4.3-10.9) L* 04/04/21 14:00 RBC 6.47 M/uL (3.86-4.86) H 04/04/21 14:00 Hgb 18.2 g/dL (12.0-15.0) H 04/04/21 14:00 Hct 53.8 % (36.0-45.0) H 04/04/21 14:00 MCV 83.2 fL (80-100) 04/04/21 14:00 MCH 28.1 pg (27.0-35.0) 04/04/21 14:00 MCHC 33.8 g/dL (32.0-36.0) 04/04/21 14:00 RDW 12.0 % (12.1-15.2) L 04/04/21 14:00 Plt Count 61 K/uL (152-406) L* 04/04/21 14:00 MPV 8.0 fL (7.6-11.3) 04/04/21 14:00 Neutrophils % % (41.7-73.7) 04/04/21 14:00 Lymphocytes % FEED MIXER 04/04/21 14:00 Absolute Neutrophils FEED MIXER 04/04/21 14:00 Segmented Neutrophils 14 % (40-80) L 04/04/21 14:00 Band Neutrophils 4 % (0-1) H 04/04/21 14:00 Absolute Lymphocytes FEED MIXER 04/04/21 14:00 Lymphocytes 56 % (15-42) H 04/04/21 14:00 Monocytes 10 % (0-10) 04/04/21 14:00 Absolute Monocytes FEED MIXER 04/04/21 14:00 Eosinophils 10 % (0-3) H 04/04/21 14:00 Absolute Eosinophils FEED MIXER 04/04/21 14:00 Absolute Basophils FEED MIXER 04/04/21 14:00 Metamyelocytes 6 % (0-0) H 04/04/21 14:00 Diff Path Review Yes 04/04/21 14:00 Platelet Estimate Decr 04/04/21 14:00 Polychromasia 1+ 04/04/21 14:00 Morphology Comment Noted (NOT SEEN) 04/04/21 14:00 Sodium 136 mmol/L (136-145) 04/04/21 14:00 Potassium 3.3 mmol/L (3.5-5.1) L 04/04/21 14:00 Chloride 101 mmol/L (98-107) 04/04/21 14:00 Carbon Dioxide 28 mmol/L (21-32) 04/04/21 14:00 BUN 7 mg/dL (7-18) 04/04/21 14:00 Creatinine 0.57 mg/dL (0.55-1.3) 04/04/21 14:00 Estimated GFR > 90 mL/min (=/>90) 04/04/21 14:00 Glucose 109 mg/dL (74-106) H 04/04/21 14:00 Lactic Acid 1.6 mmol/L (0.4-2.0) 04/04/21 14:10 Calcium 9.2 mg/dL (8.5-10.1) 04/04/21 14:00 Magnesium 2.0 04/04/21 14:00 Total Bilirubin 0.9 mg/dL (0.2-1.0) 04/04/21 14:00 Direct Bilirubin 0.4 mg/dL (0-0.2) H 04/04/21 14:00 AST 86 U/L (15-37) H 04/04/21 14:00 ALT 83 U/L (12-78) H 04/04/21 14:00 Alkaline Phosphatase 118 U/L (45-117) H 04/04/21 14:00 Serum Total Protein 7.3 g/dL (6.4-8.2) 04/04/21 14:00 Albumin 3.0 g/dL (3.4-5.0) L 04/04/21 14:00 Globulin 4.3 g/dL (2.3-3.5) H 04/04/21 14:00 Albumin/Globulin Ratio 0.7 (1.1-1.8) L 04/04/21 14:00 Lipase 70 U/L (73-393) L 04/04/21 14:00 Procalcitonin < 0.05 ng/mL (<0.050) 04/04/21 14:00 TSH 1.070 uIU/mL (0.360-3.740) 04/04/21 14:00 Urine pH 6.0 (5.0-7.0) 04/04/21 15:47 Ur Specific [place] 1.010 (1.005-1.030) 04/04/21 15:47 Glucose (UA)(Auto) Negative (Negative) 04/04/21 15:47 Urine Ketones Negative (Negative) 04/04/21 15:47 Urine Blood Negative (Negative) 04/04/21 15:47 Urine Nitrite Negative (Negative) 04/04/21 15:47 Ur Leukocyte Esterase Negative (Negative) 04/04/21 15:47 Urine Total Protein Negative (Negative) 04/04/21 15:47 Ur Specific [place] (HCG) 1.010 (1.005-1.030) 04/04/21 15:55 Urine Test Neg (NEG) 04/04/21 15:55 Influenza Type A RNA Negative (NEGATIVE) 04/04/21 14:54 Influenza Type B RNA Negative (NEGATIVE) 04/04/21 14:54 SARS-CoV-2 RNA (RT-PCR) Negative (NEGATIVE) 04/04/21 14:54 Assessment And Plan - Plan Antibiotics: Fidaxomicin day 6/10 Assessment/plan 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 In the past she has only been treated with oral vancomycin. Continue fidaxomicin for 10 days. If patient fails this treatment she will likely need a fecal transplant. Continue contact precautions. Patient placed on probiotics and Questran. Recently diagnosed non-Hodgkin's lymphoma Patient currently receiving chemotherapy, labs show leukopenia/leukocytosis. Patient remains afebrile. Plan of care discussed with Dr. Navarro Thank you for consultation. Physician Review: Patient Assessed, Agree with Above Assessment and Plan
[2021-04-12 01:01] VITALS: O2SAT 95
[2021-04-12] MEDS: MORPHINE 4 MG/ML SYR IV PRN ×4 (01:01→21:17)
[2021-04-12] MEDS: ONDANSETRON 4 MG/2 ML VIAL IV PRN ×4 (01:02→21:17)
[2021-04-12] MEDS: NS KCL 20MEQ 20 MEQ/1,000 ML BAG IV SCH ×2 (04:00→14:30)
[2021-04-12] MEDS: CHOLESTYRAMINE/ASP 4 GM/PKT PO SCH (08:24)
[2021-04-12] MEDS: LACTOBACILLUS/ACIDOPHILUS TAB PO SCH ×3 (08:25→21:00)
[2021-04-12] MEDS: GABAPENTIN 300 MG CAP PO SCH ×2 (08:25→21:01)
[2021-04-12] MEDS: LIDOCAINE VISCOUS 2% SOLN 15 ML UDC PO SCH ×3 (08:25→21:00)
[2021-04-12] MEDS: MAGNES/ALUMIN/SIMET 30ML UCUP PO SCH ×3 (08:25→21:00)
[2021-04-12] MEDS: DIPHENHYDRAMINE 12.5MG/5ML LIQ PO SCH ×3 (08:25→21:00)
[2021-04-12] MEDS: ESTRADIOL 0.5 MG PO SCH (08:25)
[2021-04-12] MEDS: FLUOXETINE 20 MG CAP PO SCH (08:25)
[2021-04-12] MEDS: FIDAXOMICIN 200 MG TABLET PO SCH ×2 (09:00→21:00)
[2021-04-12] MEDS: HYDROCODONE/APAP 10/325 TAB PO PRN ×2 (11:18→17:31)
--- NOTE | 2021-04-12 15:09 | P.PN ---
Subjective Date of Service: 04/12/21 Chief Complaint: Diarrhea and weakness Patient seen and examined at bedside, no new changes. Review of Systems 10-point ROS is otherwise unremarkable Physical Examination - Vital Signs Temperature: 97 F Blood Pressure: 87/47 Pulse: 80 Respirations: 16 Pulse Ox (%): 97 - Studies Laboratory Last Values WBC 0.40 K/uL (4.3-10.9) L* 04/04/21 14:00 RBC 6.47 M/uL (3.86-4.86) H 04/04/21 14:00 Hgb 18.2 g/dL (12.0-15.0) H 04/04/21 14:00 Hct 53.8 % (36.0-45.0) H 04/04/21 14:00 MCV 83.2 fL (80-100) 04/04/21 14:00 MCH 28.1 pg (27.0-35.0) 04/04/21 14:00 MCHC 33.8 g/dL (32.0-36.0) 04/04/21 14:00 RDW 12.0 % (12.1-15.2) L 04/04/21 14:00 Plt Count 61 K/uL (152-406) L* 04/04/21 14:00 MPV 8.0 fL (7.6-11.3) 04/04/21 14:00 Neutrophils % % (41.7-73.7) 04/04/21 14:00 Lymphocytes % [employer] F[employer]RICATOR 04/04/21 14:00 Absolute Neutrophils [employer] F[employer]RICATOR 04/04/21 14:00 Segmented Neutrophils 14 % (40-80) L 04/04/21 14:00 Band Neutrophils 4 % (0-1) H 04/04/21 14:00 Absolute Lymphocytes [employer] F[employer]RICATOR 04/04/21 14:00 Lymphocytes 56 % (15-42) H 04/04/21 14:00 Monocytes 10 % (0-10) 04/04/21 14:00 Absolute Monocytes [employer] FABRICATOR 04/04/21 14:00 Eosinophils 10 % (0-3) H 04/04/21 14:00 Absolute Eosinophils C[employer] FABRICATOR 04/04/21 14:00 Absolute Basophils C[employer]INE [employer] FABRICATOR 04/04/21 14:00 Metamyelocytes 6 % (0-0) H 04/04/21 14:00 Diff Path Review Yes 04/04/21 14:00 Platelet Estimate Decr 04/04/21 14:00 Polychromasia 1+ 04/04/21 14:00 Morphology Comment Noted (NOT SEEN) 04/04/21 14:00 Sodium 136 mmol/L (136-145) 04/04/21 14:00 Potassium 3.3 mmol/L (3.5-5.1) L 04/04/21 14:00 Chloride 101 mmol/L (98-107) 04/04/21 14:00 Carbon Dioxide 28 mmol/L (21-32) 04/04/21 14:00 BUN 7 mg/dL (7-18) 04/04/21 14:00 Creatinine 0.57 mg/dL (0.55-1.3) 04/04/21 14:00 Estimated GFR > 90 mL/min (=/>90) 04/04/21 14:00 Glucose 109 mg/dL (74-106) H 04/04/21 14:00 Lactic Acid 1.6 mmol/L (0.4-2.0) 04/04/21 14:10 Calcium 9.2 mg/dL (8.5-10.1) 04/04/21 14:00 Magnesium 2.0 04/04/21 14:00 Total Bilirubin 0.9 mg/dL (0.2-1.0) 04/04/21 14:00 Direct Bilirubin 0.4 mg/dL (0-0.2) H 04/04/21 14:00 AST 86 U/L (15-37) H 04/04/21 14:00 ALT 83 U/L (12-78) H 04/04/21 14:00 Alkaline Phosphatase 118 U/L (45-117) H 04/04/21 14:00 Serum Total Protein 7.3 g/dL (6.4-8.2) 04/04/21 14:00 Albumin 3.0 g/dL (3.4-5.0) L 04/04/21 14:00 Globulin 4.3 g/dL (2.3-3.5) H 04/04/21 14:00 Albumin/Globulin Ratio 0.7 (1.1-1.8) L 04/04/21 14:00 Lipase 70 U/L (73-393) L 04/04/21 14:00 Procalcitonin < 0.05 ng/mL (<0.050) 04/04/21 14:00 TSH 1.070 uIU/mL (0.360-3.740) 04/04/21 14:00 Urine pH 6.0 (5.0-7.0) 04/04/21 15:47 Ur Specific [place] 1.010 (1.005-1.030) 04/04/21 15:47 Glucose (UA)(Auto) Negative (Negative) 04/04/21 15:47 Urine Ketones Negative (Negative) 04/04/21 15:47 Urine Blood Negative (Negative) 04/04/21 15:47 Urine Nitrite Negative (Negative) 04/04/21 15:47 Ur Leukocyte Esterase Negative (Negative) 04/04/21 15:47 Urine Total Protein Negative (Negative) 04/04/21 15:47 Ur Specific [place] (HCG) 1.010 (1.005-1.030) 04/04/21 15:55 Urine Test Neg (NEG) 04/04/21 15:55 Influenza Type A RNA Negative (NEGATIVE) 04/04/21 14:54 Influenza Type B RNA Negative (NEGATIVE) 04/04/21 14:54 SARS-CoV-2 RNA (RT-PCR) Negative (NEGATIVE) 04/04/21 14:54 Assessment And Plan - Plan Antibiotics: Fidaxomicin day 7/10 Assessment/plan 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 In the past she has only been treated with oral vancomycin. Continue fidaxomicin for 10 days. If patient fails this treatment she will likely need a fecal transplant. Continue contact precautions. Patient placed on probiotics and Questran. Recently diagnosed non-Hodgkin's lymphoma Patient currently receiving chemotherapy, labs show leukopenia/leukocytosis. Patient remains afebrile. Plan of care discussed with Dr. Navarro Thank you for consultation. Physician Review: Patient Assessed, Agree with Above Assessment and Plan
[2021-04-13] MEDS: NS KCL 20MEQ 20 MEQ/1,000 ML BAG IV SCH ×4 (00:33→16:17)
[2021-04-13] MEDS: HYDROCODONE/APAP 10/325 TAB PO PRN ×4 (00:38→22:45)
[2021-04-13] MEDS: ONDANSETRON 4 MG/2 ML VIAL IV PRN ×3 (03:13→22:45)
[2021-04-13] MEDS: MORPHINE 4 MG/ML SYR IV PRN ×2 (03:13→11:30)
[2021-04-13 07:30] LABS: Absolute Lymphocytes (CBC) 1.2 K/uL (0.7-4.9); Hematocrit 32.6 % (36.0-45.0); Lymphocytes % 17.1 % (15.3-44.8); MPV 7.2 fL (7.6-11.3); RBC Red Blood Cell Count 3.79 M/uL (3.86-4.86)
[2021-04-13 07:52] LABS: ALT/SGPT 115 U/L (12-78); AST/SGOT 269 U/L (15-37); Albumin 2.6 g/dL (3.4-5.0); Alkaline Phosphatase 154 U/L (45-117); BUN Blood Urea Nitrogen 5 mg/dL (7-18); Bicarbonate 26 mmol/L (21-32); Bilirubin Total 0.3 mg/dL (0.2-1.0); Glucose Level 98 mg/dL (74-106); Lipase 82 U/L (73-393); NT PRO-BNP 67 pg/mL (<125); Potassium 4.4 mmol/L (3.5-5.1); Protein, Total 6.4 g/dL (6.4-8.2); Sodium Level 141 mmol/L (136-145)
[2021-04-13] MEDS: MAGNES/ALUMIN/SIMET 30ML UCUP PO SCH ×3 (08:36→21:00)
[2021-04-13] MEDS: CHOLESTYRAMINE/ASP 4 GM/PKT PO SCH (08:36)
[2021-04-13] MEDS: ESTRADIOL 0.5 MG PO SCH (08:37)
[2021-04-13] MEDS: LIDOCAINE VISCOUS 2% SOLN 15 ML UDC PO SCH ×3 (08:37→21:00)
[2021-04-13] MEDS: DIPHENHYDRAMINE 12.5MG/5ML LIQ PO SCH ×3 (08:37→21:00)
[2021-04-13] MEDS: LACTOBACILLUS/ACIDOPHILUS TAB PO SCH ×3 (08:37→22:46)
[2021-04-13] MEDS: GABAPENTIN 300 MG CAP PO SCH ×2 (08:37→22:46)
[2021-04-13] MEDS: FLUOXETINE 20 MG CAP PO SCH (08:37)
[2021-04-13 08:41] LABS: Blood Morphology Comment NOT SEEN (NOT SEEN); Platelet Estimate ADEQ; Toxic Granulation PRESENT
--- NOTE | 2021-04-13 09:51 | P.PN ---
Subjective Date of Service: 04/10/21 Patient is chart reviewed. Patient being treated for C. difficile colitis. Patient clinical status are stable. No new changes. Review of Systems 10-point ROS is otherwise unremarkable Physical Examination - Vital Signs Temperature: 97.4 F Blood Pressure: 95/60 Pulse: 72 Respirations: 17 Pulse Ox (%): 95 - Physical Exam General: Alert, In no apparent distress, Oriented x3 HEENT: Atraumatic, PERRLA, EOMI Neck: Supple, JVD not distended Respiratory: Clear to auscultation bilaterally, Normal air movement Cardiovascular: Regular rate/rhythm, Normal S1 S2 Gastrointestinal: Normal bowel sounds, Non-distended, Tenderness (Mildly tender) Musculoskeletal: No clubbing, No swelling, No tenderness Integumentary: No rashes Neurological: Normal speech, Normal tone, Normal affect Lymphatics: No axilla or inguinal lymphadenopathy - Studies Medications List Reviewed: Yes Assessment & Plan - Problems (Diagnosis) (1) Leukocytosis Current Visit: Yes Status: Acute (2) C. difficile colitis Current Visit: Yes Status: Acute (3) Crohn disease Current Visit: Yes Status: Acute (4) Non-Hodgkin lymphoma Current Visit: Yes Status: Acute - Plan -IV antibiotics -IV fluids -Monitor white blood cell count -CBC, CMP, lipase, stool cultures -N.p.o. -Repeat abdominal film if symptoms worsen -Monitor pain medication as well -Antiemetics Discharge Plan: Home Plan to discharge in: Greater than 2 days - Advance Directives Does patient have a Living Will: No Does patient have a Durable POA for Healthcare: No - Code Status/Comfort Care Code Status: Full Code Physician Review: Patient Assessed, Agree with Above Assessment and Plan Critical Care: No Time Spent Managing PTS Care (In Minutes): 45
--- NOTE | 2021-04-13 09:53 | P.PN ---
Date of Service: 04/11/21 Subjective Patient is clinically feeling a little bit better. Spoke with the nurses and diarrhea has improved. Review of Systems 10-point ROS is otherwise unremarkable Physical Examination - Vital Signs Reviewed - Physical Exam General: Alert, In no apparent distress, Oriented x3 Respiratory: Clear to auscultation bilaterally, Normal air movement Cardiovascular: Regular rate/rhythm, Normal S1 S2 Gastrointestinal: Normal bowel sounds, Non-distended, Tenderness (Mildly tender) Musculoskeletal: No clubbing, No swelling, No tenderness Neurological: Normal speech, Normal tone, Normal affect Assessment & Plan - Problems (Diagnosis) (1) Leukocytosis Current Visit: Yes Status: Acute (2) C. difficile colitis Current Visit: Yes Status: Acute (3) Crohn disease Current Visit: Yes Status: Acute (4) Non-Hodgkin lymphoma Current Visit: Yes Status: Acute - Plan Continue with plan of care as mentioned below: -Continue Dificid; -IV fluids; advance diet as tolerated -Monitor labs -Repeat abdominal film if symptoms worsen -Monitor pain medication as well -Antiemetics -Increase physical activity Discharge Plan: Home Plan to discharge in: Greater than 2 days - Advance Directives Does patient have a Living Will: No Does patient have a Durable POA for Healthcare: No - Code Status/Comfort Care Code Status: Full Code Physician Review: Patient Assessed, Agree with Above Assessment and Plan Critical Care: No Time Spent Managing PTS Care (In Minutes): 45
--- NOTE | 2021-04-13 09:55 | P.PN ---
Date of Service: 04/12/21 Subjective Patient is doing well. Patient stated that she had a little bit of swelling in her upper abdomen. I did not really appreciated. There was no tenderness on exam. Patient is tolerating diet. Diarrhea has resolved. Leukocytosis is improving. She does need to increase her activity. She does look very depressed and does not really look to be doing much in her room. At her age she should be very active. unfortunately she has been debilitated for quite a while. If her labs look better I anticipate discharge in the next 24 to 48 hours. Review of Systems 10-point ROS is otherwise unremarkable Physical Examination - Vital Signs Reviewed - Physical Exam General: Alert, In no apparent distress, Oriented x3 Respiratory: Clear to auscultation bilaterally, Normal air movement Cardiovascular: Regular rate/rhythm, Normal S1 S2 Gastrointestinal: Normal bowel sounds, Non-distended, Tenderness (Mildly tender) Musculoskeletal: No clubbing, No swelling, No tenderness Neurological: Normal speech, Normal tone, Normal affect Assessment & Plan - Problems (Diagnosis) (1) Leukocytosis Current Visit: Yes Status: Acute (2) C. difficile colitis Current Visit: Yes Status: Acute (3) Crohn disease Current Visit: Yes Status: Acute (4) Non-Hodgkin lymphoma Current Visit: Yes Status: Acute - Plan Continue with plan of care as mentioned below: -Continue Dificid; -IV fluids; advance diet as tolerated -Monitor labs -Repeat abdominal film if symptoms worsen -Monitor pain medication as well -Antiemetics -Increase physical activity Discharge Plan: Home Plan to discharge in: Greater than 2 days - Advance Directives Does patient have a Living Will: No Does patient have a Durable POA for Healthcare: No - Code Status/Comfort Care Code Status: Full Code Physician Review: Patient Assessed, Agree with Above Assessment and Plan Critical Care: No Time Spent Managing PTS Care (In Minutes): 45
--- NOTE | 2021-04-13 10:24 | RAD REPORT ---
EXAM DESCRIPTION: CTAbdomen Pelvis W Contrast - 04/13/2021 10:06 am CLINICAL HISTORY: Abdominal pain. elevated LFT COMPARISON: Abdomen Pelvis W Contrast dated 04/04/2021; Abdomen Pelvis W Contrast dated 09/04/2016; Abdomen Pelvis W Contrast dated 08/09/2015 TECHNIQUE: Biphasic CT imaging of the abdomen and pelvis was performed with 100 ml non-ionic IV cont rast. All CT scans are performed using dose optimization technique as appropriate and may include automated exposure control or mA/KV adjustment according to patient size. FINDINGS: The lung bases are clear. The liver demonstrates diffuse fatty infiltration. Spleen, pancreas, adrenal glands and kidneys are w ithin normal limits. Cholecystectomy. No bowel obstruction, free air, free fluid or abscess. Evidence previous hernia repair along the left midline anterior abdominal wall. The appendix appears surgically absent. Evidence of prior bowel res ection present. No evidence of significant lymphadenopathy. No suspicious bony findings. IMPRESSION: No acute intra-abdominal or pelvic finding. Moderate diffuse fatty liver.
--- NOTE | 2021-04-13 11:10 | P.PN ---
Subjective Date of Service: 04/13/21 Chief Complaint: Diarrhea and weakness Subjective: Improving Review of Systems 10-point ROS is otherwise unremarkable Physical Examination - Vital Signs Temperature: 97.4 F Blood Pressure: 95/60 Pulse: 72 Respirations: 17 Pulse Ox (%): 95 - Studies Laboratory Last Values WBC 0.40 K/uL (4.3-10.9) L* 04/04/21 14:00 RBC 6.47 M/uL (3.86-4.86) H 04/04/21 14:00 Hgb 18.2 g/dL (12.0-15.0) H 04/04/21 14:00 Hct 53.8 % (36.0-45.0) H 04/04/21 14:00 MCV 83.2 fL (80-100) 04/04/21 14:00 MCH 28.1 pg (27.0-35.0) 04/04/21 14:00 MCHC 33.8 g/dL (32.0-36.0) 04/04/21 14:00 RDW 12.0 % (12.1-15.2) L 04/04/21 14:00 Plt Count 61 K/uL (152-406) L* 04/04/21 14:00 MPV 8.0 fL (7.6-11.3) 04/04/21 14:00 Neutrophils % % (41.7-73.7) 04/04/21 14:00 Lymphocytes % RECLAMATION ENGINEER 04/04/21 14:00 Absolute Neutrophils RECLAMATION ENGINEER 04/04/21 14:00 Segmented Neutrophils 14 % (40-80) L 04/04/21 14:00 Band Neutrophils 4 % (0-1) H 04/04/21 14:00 Absolute Lymphocytes RECLAMATION ENGINEER 04/04/21 14:00 Lymphocytes 56 % (15-42) H 04/04/21 14:00 Monocytes 10 % (0-10) 04/04/21 14:00 Absolute Monocytes RECLAMATION ENGINEER 04/04/21 14:00 Eosinophils 10 % (0-3) H 04/04/21 14:00 Absolute Eosinophils RECLAMATION ENGINEER 04/04/21 14:00 Absolute Basophils RECLAMATION ENGINEER 04/04/21 14:00 Metamyelocytes 6 % (0-0) H 04/04/21 14:00 Diff Path Review Yes 04/04/21 14:00 Platelet Estimate Decr 04/04/21 14:00 Polychromasia 1+ 04/04/21 14:00 Morphology Comment Noted (NOT SEEN) 04/04/21 14:00 Sodium 136 mmol/L (136-145) 04/04/21 14:00 Potassium 3.3 mmol/L (3.5-5.1) L 04/04/21 14:00 Chloride 101 mmol/L (98-107) 04/04/21 14:00 Carbon Dioxide 28 mmol/L (21-32) 04/04/21 14:00 BUN 7 mg/dL (7-18) 04/04/21 14:00 Creatinine 0.57 mg/dL (0.55-1.3) 04/04/21 14:00 Estimated GFR > 90 mL/min (=/>90) 04/04/21 14:00 Glucose 109 mg/dL (74-106) H 04/04/21 14:00 Lactic Acid 1.6 mmol/L (0.4-2.0) 04/04/21 14:10 Calcium 9.2 mg/dL (8.5-10.1) 04/04/21 14:00 Magnesium 2.0 04/04/21 14:00 Total Bilirubin 0.9 mg/dL (0.2-1.0) 04/04/21 14:00 Direct Bilirubin 0.4 mg/dL (0-0.2) H 04/04/21 14:00 AST 86 U/L (15-37) H 04/04/21 14:00 ALT 83 U/L (12-78) H 04/04/21 14:00 Alkaline Phosphatase 118 U/L (45-117) H 04/04/21 14:00 Serum Total Protein 7.3 g/dL (6.4-8.2) 04/04/21 14:00 Albumin 3.0 g/dL (3.4-5.0) L 04/04/21 14:00 Globulin 4.3 g/dL (2.3-3.5) H 04/04/21 14:00 Albumin/Globulin Ratio 0.7 (1.1-1.8) L 04/04/21 14:00 Lipase 70 U/L (73-393) L 04/04/21 14:00 Procalcitonin < 0.05 ng/mL (<0.050) 04/04/21 14:00 TSH 1.070 uIU/mL (0.360-3.740) 04/04/21 14:00 Urine pH 6.0 (5.0-7.0) 04/04/21 15:47 Ur Specific [place] 1.010 (1.005-1.030) 04/04/21 15:47 Glucose (UA)(Auto) Negative (Negative) 04/04/21 15:47 Urine Ketones Negative (Negative) 04/04/21 15:47 Urine Blood Negative (Negative) 04/04/21 15:47 Urine Nitrite Negative (Negative) 04/04/21 15:47 Ur Leukocyte Esterase Negative (Negative) 04/04/21 15:47 Urine Total Protein Negative (Negative) 04/04/21 15:47 Ur Specific [place] (HCG) 1.010 (1.005-1.030) 04/04/21 15:55 Urine Test Neg (NEG) 04/04/21 15:55 Influenza Type A RNA Negative (NEGATIVE) 04/04/21 14:54 Influenza Type B RNA Negative (NEGATIVE) 04/04/21 14:54 SARS-CoV-2 RNA (RT-PCR) Negative (NEGATIVE) 04/04/21 14:54 Medications List Reviewed: Yes Assessment And Plan - Plan Antibiotics: Fidaxomicin day 8/10 Assessment/plan 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 In the past she h as only been treated with oral vancomycin. Continue fidaxomicin for 10 days. If patient fails this treatment she will likely need a fecal transplant. Continue contact precautions. Patient placed on probiotics and Questran. Recently diagnosed non-Hodgkin's lymphoma Patient currently receiving chemotherapy, labs show leukopenia/leukocytosis. Patient remains afebrile. Plan of care discussed with Dr. Navarro Thank you for consultation. Physician Review: Patient Assessed, Agree with Above Assessment and Plan
[2021-04-13] MEDS: FIDAXOMICIN 200 MG TABLET PO SCH ×2 (12:08→22:47)
--- NOTE | 2021-04-13 16:05 | P.PN ---
Date of Service: 04/13/21 Subjective Patient is showing improvement. However LFTs were elevated. Most likely related to medication. Spoke with patient about discharge planning and infectious disease recommended 1 more day of oral antibiotic therapy in the hospital. Anticipate discharge home in the morning. Review of Systems 10-point ROS is otherwise unremarkable Physical Examination - Vital Signs Reviewed - Physical Exam General: Alert, In no apparent distress, Oriented x3 Respiratory: Clear to auscultation bilaterally, Normal air movement Cardiovascular: Regular rate/rhythm, Normal S1 S2 Gastrointestinal: Normal bowel sounds, Non-distended, Tenderness (Mildly tender) Musculoskeletal: No clubbing, No swelling, No tenderness Neurological: Normal speech, Normal tone, Normal affect Assessment & Plan - Problems (Diagnosis) (1) Leukocytosis Current Visit: Yes Status: Acute (2) C. difficile colitis Current Visit: Yes Status: Acute (3) Crohn disease Current Visit: Yes Status: Acute (4) Non-Hodgkin lymphoma Current Visit: Yes Status: Acute - Plan Continue with plan of care as mentioned below: -Continue Dificid x2 days DC in p.m.; -IV fluids; advance diet as tolerated -Monitor labs -Repeat abdominal film if symptoms worsen -Monitor pain medication as well -Antiemetics -Increase physical activity Discharge Plan: Home Plan to discharge in: Greater than 2 days - Advance Directives Does patient have a Living Will: No Does patient have a Durable POA for Healthcare: No - Code Status/Comfort Care Code Status: Full Code Physician Review: Patient Assessed, Agree with Above Assessment and Plan Critical Care: No Time Spent Managing PTS Care (In Minutes): 45
[2021-04-14] MEDS: NS KCL 20MEQ 20 MEQ/1,000 ML BAG IV SCH (01:00)
[2021-04-14 06:59] LABS: Absolute Lymphocytes (CBC) 1.1 K/uL (0.7-4.9); Hematocrit 32.5 % (36.0-45.0); Lymphocytes % 20.7 % (15.3-44.8); MPV 7.1 fL (7.6-11.3); RBC Red Blood Cell Count 3.79 M/uL (3.86-4.86)
[2021-04-14 07:12] LABS: ALT/SGPT 137 U/L (12-78); AST/SGOT 65 U/L (15-37); Albumin 2.7 g/dL (3.4-5.0); Alkaline Phosphatase 171 U/L (45-117); BUN Blood Urea Nitrogen 7 mg/dL (7-18); Bicarbonate 28 mmol/L (21-32); Bilirubin Total 0.2 mg/dL (0.2-1.0); Glucose Level 144 mg/dL (74-106); Protein, Total 6.5 g/dL (6.4-8.2); Sodium Level 139 mmol/L (136-145)
[2021-04-14] MEDS: MAGNES/ALUMIN/SIMET 30ML UCUP PO SCH (09:00)
[2021-04-14] MEDS: LIDOCAINE VISCOUS 2% SOLN 15 ML UDC PO SCH (09:00)
[2021-04-14] MEDS: DIPHENHYDRAMINE 12.5MG/5ML LIQ PO SCH (09:00)
[2021-04-14] MEDS: ESTRADIOL 0.5 MG PO SCH (09:00)
[2021-04-14 09:48] LABS: Platelet Estimate ADEQ
[2021-04-14 09:50] LABS: Anisocytosis SLIGHT; Blood Morphology Comment NOTED (NOT SEEN); Polychromasia SLIGHT
[2021-04-14] MEDS: GABAPENTIN 300 MG CAP PO SCH (10:09)
[2021-04-14] MEDS: FLUOXETINE 20 MG CAP PO SCH (10:09)
[2021-04-14] MEDS: FIDAXOMICIN 200 MG TABLET PO SCH (10:10)
[2021-04-14] MEDS: CHOLESTYRAMINE/ASP 4 GM/PKT PO SCH (10:10)
[2021-04-14] MEDS: LACTOBACILLUS/ACIDOPHILUS TAB PO SCH (10:10)
[2021-04-14] MEDS: HYDROCODONE/APAP 10/325 TAB PO PRN (10:10)
--- NOTE | 2021-04-14 10:31 | P.DS ---
Discharge Date: 04/14/21 Disposition: ROUTINE DISCHARGE Discharge Condition: GOOD Reason for Admission: Diarrhea and weakness - Problems (1) Leukocytosis Status: Acute (2) C. difficile colitis Status: Acute (3) Crohn disease Status: Acute (4) Non-Hodgkin lymphoma Status: Acute Brief History of Present Illness: 40-year-old female with past medical history of Crohn's disease, depression, recently diagnosed non-Hodgkin's lymphoma initiated on chemotherapy with R-CHOP 1 week agostates she had 2 daily split doseswith a subsequent dose of Neulasta given next day, follows with Dr. Reyna; develop worsening abdominal pain which is generalized crampy and intermittent in pattern associated with worsening of her chronic diarrhea. She states she typically moves her bowels 6-7 times per day but since the last 3 days she will be having bowel movements which is typically watery with no hematochezia roughly every 10 to 20 minutes. She has had mild nausea and decreased p.o. intake but denies any vomiting prior to arrival in the ED today. She was brought in by the spouse because of progressive weakness and decreased p.o. intake. She stated past history of C. difficile. She denies any recent antibiotics use. On arrival in the emergency room she was borderline hypotensive, elevated hemoglobin of 18, WBC was noted low at 0.4, potassium was slightly low. CT of the abdomen shows evidence of colitis mainly around the transverse colon. She has been admitted for with chemo induced neutropenia and severe dehydration Hospital Course: Patient was treated on oral antibiotics. Patient's C diff resolved. Patient waking was back to normal. Patient's pain is better controlled. At this time, patient is stable for discharge home. Vital Signs/Physical Exam: Temp Pulse Resp BP Pulse Ox 98 F 77 17 102/53 L 96 04/14/21 04:00 04/14/21 04:00 04/14/21 10:10 04/14/21 04:00 04/14/21 10:10 General: Alert, In no apparent distress, Oriented x3 Laboratory Data at Discharge: WBC 5.40 K/uL (4.3-10.9) D 04/14/21 06:03 Hgb 11.0 g/dL (12.0-15.0) L 04/14/21 06:03 Hct 32.5 % (36.0-45.0) L 04/14/21 06:03 Plt Count 217 K/uL (152-406) D 04/14/21 06:03 Sodium 139 mmol/L (136-145) 04/14/21 06:03 Potassium 4.0 mmol/L (3.5-5.1) 04/14/21 06:03 BUN 7 mg/dL (7-18) 04/14/21 06:03 Creatinine 0.54 mg/dL (0.55-1.3) L 04/14/21 06:03 Glucose 144 mg/dL (74-106) H 04/14/21 06:03 Phosphorus 3.1 mg/dL (2.5-4.9) D 04/08/21 07:04 Magnesium 2.0 04/12/21 18:51 Total Bilirubin 0.2 mg/dL (0.2-1.0) 04/14/21 06:03 AST 65 U/L (15-37) H D 04/14/21 06:03 ALT 137 U/L (12-78) H 04/14/21 06:03 Alkaline Phosphatase 171 U/L (45-117) H 04/14/21 06:03 Lipase 82 U/L (73-393) 04/13/21 06:45 Home Medications: Estradiol [Estrace] 0.5 mg PO BEDTIME 02/08/21 Fluoxetine HCl [Prozac] 40 mg PO BEDTIME 02/08/21 Ustekinumab [Stelara] 130 mg SQ ONCE 02/08/21 Gabapentin 300 mg PO BID 04/04/21 Cholestyramine/Asp [Questran Light*] 4 gm PO DAILY WITH BREAKFAST #30 packet 04/14/21 Diphenox/Atropine [Lomotil*] 1 tab PO QID PRN #30 tab 04/14/21 Hydrocodone/Acetaminophen [Hydrocodon-Acetaminophn 10-325] 1 each PO Q6HP PRN #30 tablet 04/14/21 Ondansetron [Zofran] 4 mg PO Q6H PRN #30 tab 04/14/21 New Medications: Hydrocodone/Acetaminophen [Hydrocodon-Acetaminophn 10-325] 1 each PO Q6HP PRN #30 tablet PRN Reason: pain/fever Diphenox/Atropine [Lomotil*] 1 tab PO QID PRN #30 tab PRN Reason: Diarrhea Cholestyramine/Asp [Questran Light*] 4 gm PO DAILY WITH BREAKFAST #30 packet Ondansetron [Zofran] 4 mg PO Q6H PRN #30 tab PRN Reason: Nausea / Vomiting Physician Discharge Instructions: -DC IV and DC home -Follow-up with PCP in 1 to 2 weeks -Follow-up with Oncology and Public Safety Teacher in 1 to 2 weeks -Please call Dr. Jordan at [phone] if any questions regarding hospital stay -Please call nursing station at [phone] if any nursing or medication questions -Return to the emergency room if symptoms worsen Diet: Regular Activity: Fall precautions Followup: OOT,OOT [Primary Care Provider] - Time spent managing pt's care (in minutes): 35
[2021-04-14 10:55] VITALS: BP 106/61; TEMP 96.9
--- NOTE | 2021-04-14 12:07 | P.PN ---
Subjective Date of Service: 04/14/21 Chief Complaint: Diarrhea and weakness Patient seen and examined at bedside, plan for DC today. Review of Systems 10-point ROS is otherwise unremarkable Physical Examination - Vital Signs Temperature: 96.9 F Blood Pressure: 106/61 Pulse: 84 Respirations: 17 Pulse Ox (%): 96 - Studies Laboratory Last Values WBC 0.40 K/uL (4.3-10.9) L* 04/04/21 14:00 RBC 6.47 M/uL (3.86-4.86) H 04/04/21 14:00 Hgb 18.2 g/dL (12.0-15.0) H 04/04/21 14:00 Hct 53.8 % (36.0-45.0) H 04/04/21 14:00 MCV 83.2 fL (80-100) 04/04/21 14:00 MCH 28.1 pg (27.0-35.0) 04/04/21 14:00 MCHC 33.8 g/dL (32.0-36.0) 04/04/21 14:00 RDW 12.0 % (12.1-15.2) L 04/04/21 14:00 Plt Count 61 K/uL (152-406) L* 04/04/21 14:00 MPV 8.0 fL (7.6-11.3) 04/04/21 14:00 Neutrophils % % (41.7-73.7) 04/04/21 14:00 Lymphocytes % [employer] 04/04/21 14:00 Absolute Neutrophils [employer] 04/04/21 14:00 Segmented Neutrophils 14 % (40-80) L 04/04/21 14:00 Band Neutrophils 4 % (0-1) H 04/04/21 14:00 Absolute Lymphocytes [employer] 04/04/21 14:00 Lymphocytes 56 % (15-42) H 04/04/21 14:00 Monocytes 10 % (0-10) 04/04/21 14:00 Absolute Monocytes [employer] 04/04/21 14:00 Eosinophils 10 % (0-3) H 04/04/21 14:00 Absolute Eosinophils [employer] 04/04/21 14:00 Absolute Basophils [employer] 04/04/21 14:00 Metamyelocytes 6 % (0-0) H 04/04/21 14:00 Diff Path Review Yes 04/04/21 14:00 Platelet Estimate Decr 04/04/21 14:00 Polychromasia 1+ 04/04/21 14:00 Morphology Comment Noted (NOT SEEN) 04/04/21 14:00 Sodium 136 mmol/L (136-145) 04/04/21 14:00 Potassium 3.3 mmol/L (3.5-5.1) L 04/04/21 14:00 Chloride 101 mmol/L (98-107) 04/04/21 14:00 Carbon Dioxide 28 mmol/L (21-32) 04/04/21 14:00 BUN 7 mg/dL (7-18) 04/04/21 14:00 Creatinine 0.57 mg/dL (0.55-1.3) 04/04/21 14:00 Estimated GFR > 90 mL/min (=/>90) 04/04/21 14:00 Glucose 109 mg/dL (74-106) H 04/04/21 14:00 Lactic Acid 1.6 mmol/L (0.4-2.0) 04/04/21 14:10 Calcium 9.2 mg/dL (8.5-10.1) 04/04/21 14:00 Magnesium 2.0 04/04/21 14:00 Total Bilirubin 0.9 mg/dL (0.2-1.0) 04/04/21 14:00 Direct Bilirubin 0.4 mg/dL (0-0.2) H 04/04/21 14:00 AST 86 U/L (15-37) H 04/04/21 14:00 ALT 83 U/L (12-78) H 04/04/21 14:00 Alkaline Phosphatase 118 U/L (45-117) H 04/04/21 14:00 Serum Total Protein 7.3 g/dL (6.4-8.2) 04/04/21 14:00 Albumin 3.0 g/dL (3.4-5.0) L 04/04/21 14:00 Globulin 4.3 g/dL (2.3-3.5) H 04/04/21 14:00 Albumin/Globulin Ratio 0.7 (1.1-1.8) L 04/04/21 14:00 Lipase 70 U/L (73-393) L 04/04/21 14:00 Procalcitonin < 0.05 ng/mL (<0.050) 04/04/21 14:00 TSH 1.070 uIU/mL (0.360-3.740) 04/04/21 14:00 Urine pH 6.0 (5.0-7.0) 04/04/21 15:47 Ur Specific [place] 1.010 (1.005-1.030) 04/04/21 15:47 Glucose (UA)(Auto) Negative (Negative) 04/04/21 15:47 Urine Ketones Negative (Negative) 04/04/21 15:47 Urine Blood Negative (Negative) 04/04/21 15:47 Urine Nitrite Negative (Negative) 04/04/21 15:47 Ur Leukocyte Esterase Negative (Negative) 04/04/21 15:47 Urine Total Protein Negative (Negative) 04/04/21 15:47 Ur Specific [place] (HCG) 1.010 (1.005-1.030) 04/04/21 15:55 Urine Test Neg (NEG) 04/04/21 15:55 Influenza Type A RNA Negative (NEGATIVE) 04/04/21 14:54 Influenza Type B RNA Negative (NEGATIVE) 04/04/21 14:54 SARS-CoV-2 RNA (RT-PCR) Negative (NEGATIVE) 04/04/21 14:54 Medications List Reviewed: Yes Assessment And Plan - Plan Antibiotics: Fidaxomicin day 10 Assessment/plan 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 In the past she has only been treated with oral vancomycin. Continue fidaxomicin for 10 days. If patient fails this treatment she will likely need a fecal transplant. Continue contact precautions. Patient placed on probiotics and Questran. Recently diagnosed non-Hodgkin's lymphoma Patient currently receiving chemotherapy, labs show leukopenia/leukocytosis. Patient remains afebrile. Plan of care discussed with Dr. Navarro Thank you for consultation. Physician Review: Patient Assessed, Agree with Above Assessment and Plan
== END 2021-04-14 12:06 | disposition home or self-care (01) | DRG 372 ==
LOC: ER 13:18 → ERHOLD 16:57 → 2ND 19:42
PROVIDERS: ADMIT Internal Medicine; ATTEND Hospitalist
DX: A04.71 Enterocolitis due to Clostridium difficile, recurrent (principal); C85.90 Non-Hodgkin lymphoma, unspecified, unspecified site; K50.90 Crohn's disease, unspecified, without complications; D61.818 Other pancytopenia; E86.0 Dehydration; F32.A Depression, unspecified; E87.6 Hypokalemia; D72.829 Elevated white blood cell count, unspecified; E66.9 Obesity, unspecified; T45.1X5A Adverse effect of antineoplastic and immunosuppressive drugs, initial encounter; Z90.710 Acquired absence of both cervix and uterus; Z90.49 Acquired absence of other specified parts of digestive tract; Z79.899 Other long term (current) drug therapy; Z98.51 Tubal ligation status; Z68.36 Body mass index [BMI] 36.0-36.9, adult; Z20.822 Contact with and (suspected) exposure to COVID-19
CPT/HCPCS: 0240U; 36415; 71045; 74018; 74177; 80048; 80053; 80076; 81003; 81025; 82553; 83605; 83690; 83735; 83880; 84100; 84145; 84443; 84484; 85025; 87040; 87045; 87046; 87177; 87209; 87324; 87425; 87449; 93005; 96361; 96365; 96375; 99285; C9113; J1170; J1447; J2270; J2405; J2550; J3010; J3480; J7030; J7040; J8499; Q0163; Q9967

== ENCOUNTER 2021-04-24 11:29 | Inpatient (IN) | payer BC ==
--- OUTSIDE RECORDS SUMMARY | 2021-04-24 11:33 | XMS REPORT | Clinical Summary ---
:1980 Author Organization [facility] MD [facility] Address [facility] [place] [address] Care Team Providers Name Role Phone Juwan Guerrero MD Primary Care Provider Allergies Not on File Medications Not on file Active Problems Not on file Encounters Date Type Specialty Care Team Description 03/13/2021 Lab Requisition [facility] MD Witson, Anne S., MD 02/28/2021 Ancillary Procedure Radiology Juwan Guerrero M D Cancer 02/20/2021 Travel after 04/24/2020 Social History Tobacco Use Types Packs/Day Years Used Date Never Assessed Sex Assigned at Date Recorded Female 02/20/2021 6:08 PM [employer]ARM [employer] Job Start Date Occupation Industry Not on [...] 9:06 Cancer 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 after 04/24/2020 Results Pathology Outside Interpretation (02/13/2021) Materials Accession#, Stained, Block, Unstained Collected Receiv ed [facility] Received A. [id number], 24 SS, 5 BLOCKS, 0 USS 02/13/2021 022 Diagnosis Lymph node (left upper neck), excisional biopsy: [facility] Electronically signed by Sivan alcantar [...] but there are also follicular areas (20-30% [facility] ). Both the diffuse and foll icular [...] Note: H&E Disclaimer "Some tests reported here [facility] may have been developed and performance characteristics determined by [facility] Pathology and Laboratory Medicine. These tests have not been specifically cleared or approved by the U.S. Food and Drug Administration. 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 For comparison only. No MD Tin originated interpretation requested or a vailable. after 04/24/2020 Insurance Payer Benefit Plan / Subscriber ID Effective Dates Phone Addre ss Type Group [employer] POS [id number] 2020-Present [address] [place] [address] Care Teams Tassel Clipper Relationship Specialty Start Date End Date Juwan Guerrero MD PCP - General Lymphoma and Myeloma 02/21/21 [address] [place] [address]
--- OUTSIDE RECORDS SUMMARY | 2021-04-24 11:35 | XMS REPORT | Continuity of Care Document ---
:1980 Author Organization [facility] t Address [address] [place] [address] Care Team Providers Name Role Phone [phone] Primary Care Physician Unavailable SYSTEM, NOT IN Attending Clinician Unavailable HARLAN Attending Clinician Unavailable PATRICIA Attending Clinician Unavailable Marc Hill MD Attending Clinician Jose Alfredo BRYAN S. Attending Clinician Ricki Ardon MD Attending Clinician Ricki ARDON Attending Clinician Unavailable MARICHUYONJEANNIE Attending Clinician Unavailable AGA, W Attending Clinician Unavailable Mariam LEE Attending Clinician Unavailable Mariam Lee MD Attending Clinician LAB90 Attending Clinician Unavailable Harlan CALL CENTER COORDINATOR-C Attending Clinician Job FELIX, T Attending Clinician Unavailable Darien CALL CENTER COORDINATOR Attending Clinician Abigail CALL CENTER COORDINATOR Attending Clinician ABIGAIL Attending Clinician Unavailable Doctor [...] Date Expiration Date S rahul [place] - [id number] 2016 OUT OF STATE 00:00:00 BCBS 2 [id number] 2020 00:00:00 BLUE CROSS BLUE [id number] 2020 MD Yan molina [place] P[place] 00:00:00 [id number]/ 03/2020-[id number], [place] [address] Problems Condition Condition Condition Status Onset Resolution [...] abdominal 1-03 ity of pain pain 00:00: [address] Branch Chills Chills Disease Active 2018-03 Univers 0-03 ity of 00:00: [place] 00 Medical Branch C. C. Disease Active 2018-03 Univers difficile difficile 0-02 ity of diarrhea diarrhea 00:00: Medical Branch Intractabl Intractabl Disease Active 2018-03 [...] of cholelithi cholelithi 00:00: g of this [place] asis asis 00 note Medical might be Branch different from the original. Added automatic ally from request for surgery [id number] Abdominal Abdominal Disease Active Uni vers pain pain 6-28 ity of 00:00: [place] 00 Medical Branch Crohn Crohn Disease Active Univers disease disease 5-04 ity of 00:00: [place] 00 Medical Branch Generalize Generalize Disease Active [...] (BMI 2-12 ity of 30-39.9) 30-39.9) 00:00: [place] 00 Medical Branch Morbid Morbid Disease Active [...] Active Univers ALLERGIE Class ity of S [facility] NO KNOWN Allergy Active [facility] Social History Social Habit Start Date Stop Date Quantity Comments Source History SDOH Karolina polanco Alcohol Frequency History SDOH Karolina polanco Alcohol Std Drinks History SDOH Karolina polanco Alcohol Binge History of Karolina Galicia tobacco use Exposure to Yes University [facility]-CoV-2 [place] [facility] (event) Branch Alcohol intake 2021-01-25 2021-01-25 Current drinker Laura Galicia 00:00:00 00:00:00 of alcohol (finding) Alcohol Comment 2021-01-25 2021-01-25 social Karolina ybold 00:00:00 00:00:00 Tobacco Comment 2021-01-25 2021-01-25 vape Karolina Se ybold 00:00:00 00:00:00 Tobacco use and 2021-01-18 2021-01-18 Smokeless tobacco Ke lsjarrod Seybold exposure 00:00:00 00:00:00 non-user History SDNV 2018-12-03 2018-12-03 5 University o f Financial 00:00:00 00:00:00 [place] [facility] History SDNV Food 2018-12-03 2018-12-03 1 Univers ity of Worry 00:00:00 00:00:00 [place] [facility] History SDNV Food 2018-12-03 2018-12-03 1 Univers ity of Scarcity 00:00:00 00:00:00 [place] [facility] History SDNV 2018-12-03 2018-12-03 2 University o f Transport Med 00:00:00 00:00:00 [place] [facility] al [facility] History SDNV 2018-12-03 2018-12-03 2 University o f Transport Non-Med 00:00:00 00:00:00 [place] M edical [facility] History SDNV 2018-12-02 2018-12-02 14 University o f Education 00:00:00 00:00:00 [facility] Sex Assigned At [birth year] F MD Christiansen on 00:00:00 00:00:00 Smoking Status Start Date Stop Date Source Smokes tobacco daily 2021-01-18 00:00:00 Karolina Seybold Never smoker [facility] Current some day smoker 2019-01-05 00:00:00 [facility] Medications Ordered Filled Start Stop Current Ordering [...] Solution 33 Prefilled Syringe Estrogens 2020-03 Yes [id number] Take one Kraolina Conjugated 1-24 tablet Seybold (Premarin) 00:00: daily 0.3 MG oral 00 Tablet Ustekinumab 2020-03 Yes Inject Courtney ey 45 MG/0.5ML 1-17 into the Seyb old subcutaneou 10:59: skin s Solution 00 Prefilled Syringe Ustekinumab 2020-03 Yes Inject Courtney ey (STELARA 1-17 into the Seybold SC) 10:57: skin Every 52 8 Weeks hydrOXYzine 2020-03 Yes [id number] 10mg Q.[id number] Take 1 Karolina HCl 10 MG 1-17 [id number] tablet (10 Seybold oral Tablet 00:00: 3D mg total) 00 by mouth 3 times daily as needed for itching or anxiety Fluoxetine 2020-03 Yes [id number] 40mg Take 1 K elsey HCl 40 MG 1-17 capsule Seybold oral 00:00: (40 mg Capsule 00 total) by mouth daily hydrOXYzine 2020-03 Yes [id number] 10mg Q.[id number] Take 1 Karolina HCl 10 MG 1-17 [id number] tablet (10 Seybold oral Tablet 00:00: 3D mg total) 00 by mouth 3 times daily as needed for itching or anxiety Fluoxetine 2020-03 Yes [id number] 40mg Take 1 K elsey HCl 40 MG 1-17 capsule Seybold oral 00:00: (40 mg Capsule 00 total) by mouth daily HYDROcodone 2020- No 1{tbl} 1 tablet, Univers -acetaminop 10-02 Oral, ity of hen (NORCO 07:45: 06:47 ONCE, 1 Gaurang as 5) 5-325 mg 00 :00 dose, Sun Med ical tablet 1 10/02/20 at [place] tablet 0245, LEWIS dicyclomine 2020- No 20mg [...] Sun Medica l NaCl 0.9% 10/02/20 at [facility] h (NS) 50 mL 0145, 50 piggyback mL ondansetron 2020- No 4mg 4 mg, Slow Univers (ZOFRAN 10-02 IV Push, ity of (PF)) 05:15: 04:37 ONCE, 1 [place] injection 4 00 :00 dose, Sun Med ical mg 10/02/20 at Branch 0015, LEWIS Ustekinumab Yes inject Univ ers 45 mg/0.5 8-01 under the ity o f mL SC 04:11: skin. [place] injection [address] [place] [address] Ustekinumab Yes inject Univ ers 45 mg/0.5 8-01 under the ity o f mL SC 04:11: skin. [place] injection [address] [place] [address] Ustekinumab Yes inject Univ ers 45 mg/0.5 8-01 under the ity o f mL SC 04:11: skin. [place] injection [address] [place] [address] Ustekinumab Yes inject Univ ers 45 mg/0.5 8-01 under the ity o f mL SC 04:11: skin. [place] injection [address] [place] [address] Ustekinumab Yes inject Univ ers 45 mg/0.5 8-01 under the ity o f mL SC 04:11: skin. [place] injection 16 Medical Branch Ustekinumab Yes inject Univ ers 45 mg/0.5 8-01 under the ity o f mL SC 04:11: skin. [place] injection 16 Medical Branch proMETHazin Yes [id number] 25mg Take 1 Univers e 25 mg 8-01 tablet by ity of tablet 00:00: mouth [place] 00 every 6 Medical (six) Branch hours as needed for N/V unresponsi ve to Ondansetro n. proMETHazin Yes [id number] 25mg Take 1 Univers e 25 mg 8-01 tablet by ity of tablet 00:00: mouth [place] 00 every 6 Medical (six) Branch hours as needed for N/V unresponsi ve to Ondansetro n. proMETHazin Yes [id number] 25mg Take 1 Univers e 25 mg 8-01 tablet by ity of tablet 00:00: mouth [place] 00 every 6 Medical (six) Branch hours as needed for N/V unresponsi ve to Ondansetro n. proMETHazin Yes [id number] 25mg Take 1 Univers e 25 mg 8-01 tablet by ity of tablet 00:00: mouth [place] 00 every 6 Medical (six) Branch hours as needed for N/V unresponsi ve to Ondansetro n. proMETHazin Yes [id number] 25mg Take 1 Univers e 25 mg 8-01 tablet by ity of tablet 00:00: mouth [place] 00 every 6 Medical (six) Branch hours as needed for N/V unresponsi ve to Ondansetro n. proMETHazin Yes [id number] 25mg Take 1 Univers e 25 mg [...] 500mL at 999 Univ ers (NS) bolus 5-18 05-18 mL/hr, 500 it y of infusion 22:30: 23:18 mL, IV [place] 500 mL 00 :00 Infusion, Medical ONCE, 1 Branch dose, 07/19/20 at 1730, STAT ondansetron 0 Yes [id number] 4mg Take 1 Univers (ZOFRAN 5-18 tablet by ity of ODT) 4 mg 00:00: mouth [place] disintegrat 00 every 8 Medic al ing tablet (eight) Branch hours as needed for Nausea and Vomiting (N/V). ondansetron Yes [id number] 4mg Take 1 Univers (ZOFRAN 5-18 tablet by ity of ODT) 4 mg 00:00: mouth [place] disintegrat 00 every 8 Medic al ing tablet (eight) Branch hours as needed for Nausea and Vomiting (N/V). ondansetron Yes [id number] 4mg Take 1 Univers (ZOFRAN 5-18 tablet by ity of ODT) 4 mg 00:00: mouth [place] disintegrat 00 every 8 Medic al ing tablet (eight) Branch hours as needed for Nausea and Vomiting (N/V). ondansetron 2020-0 Yes [id number] 4mg Take 1 Univers (ZOFRAN 5-18 tablet by ity of ODT) 4 mg 00:00: mouth [place] disintegrat 00 every 8 Medic al ing tablet (eight) Branch hours as needed for Nausea and Vomiting (N/V). ondansetron 2020-0 Yes [id number] 4mg Take 1 Univers (ZOFRAN 5-18 tablet by ity of ODT) 4 mg 00:00: mouth [place] disintegrat 00 every 8 Medic al ing tablet (eight) Branch hours as needed for Nausea and Vomiting (N/V). ondansetron 2021-0 Yes [id number] 4mg Take 1 Univers (ZOFRAN 5-18 tablet by ity of ODT) 4 mg 00:00: mouth [place] disintegrat 00 every 8 Medic al ing tablet (eight) Branch hours as needed for Nausea and Vomiting (N/V). ondansetron 2021-0 Yes [id number] 4mg Take 1 Univers (ZOFRAN 5-18 tablet by ity of ODT) 4 mg 00:00: mouth [place] disintegrat 00 every 8 Medic al ing tablet (eight) Branch hours as needed for Nausea and Vomiting (N/V). Ondansetron 1-0 Yes 4mg Q8H Take 4 mg K [...] Seybol d oral 00:00: Capsule 00 FLUoxetine 202-0 Yes 20mg Take 20 mg U nivers 20 mg 4-06 by mouth. ity of capsule 00:00: [place] [facility] FLUoxetine 2021-0 Yes 20mg Take 20 mg U nivers 20 mg 4-06 by mouth. ity of capsule 00:00: [place] [facility] FLUoxetine 2021-0 Yes 20mg Take 20 mg U nivers 20 mg 4-06 by mouth. ity of capsule 00:00: [place] [facility] FLUoxetine 2021-0 Yes 20mg Take 20 mg U nivers 20 mg 4-06 by mouth. ity of capsule 00:00: [place] [facility] FLUoxetine 2021-0 Yes 20mg Take 20 mg U nivers 20 mg 4-06 by mouth. ity of capsule 00:00: [place] [facility] FLUoxetine 2021-0 Yes 20mg Take 20 mg U nivers 20 mg 4-06 by mouth. ity of capsule 00:00: [place] 00 [facility] Fluoxetine Yes [id number] 20mg Take 1 K elsey HCl 20 MG 4-06 capsule Seybold oral 00:00: (20 mg Capsule 00 total) by mouth daily Fluoxetine Yes 20mg Take 20 mg K elsey HCl 20 MG 4-06 by mouth Seybol d oral 00:00: Capsule 00 Fluoxetine Yes [id number] 20mg Take 1 K elsey HCl 20 MG 4-06 capsule Seybold oral 00:00: (20 mg Capsule 00 total) by mouth daily lactobacill Yes [id number] 1{tbl} Take 1 Univers us 5-30 tablet by ity of acidophilus 00:00: mouth 2 Gaurang as 25 million 00 (two) Medical cell -100 times Branch mg captab daily. lactobacill Yes [id number] 1{tbl} Take 1 Univers us 5-30 tablet by ity of acidophilus 00:00: mouth 2 Gaurang as 25 million 00 (two) Medical cell -100 times Branch mg captab daily. lactobacill Yes [id number] 1{tbl} Take 1 Univers us 5-30 tablet by ity of acidophilus 00:00: mouth 2 Gaurang as 25 million 00 (two) Medical cell -100 times Branch mg captab daily. lactobacill 2020- No [id number] 1{tbl} Take 1 Univers us 5-30 07-31 [...] ity of mg 03:15: 02:07 ONCE, 1 [place] 00 :00 dose, Sat Medical 03/28/19 at Branch 2115, STAT diphenhydrA 2019- No 25mg 25 mg, [...] Branch injection 2044, 120 mL Routine ondansetron 2019-0 2020- No 4mg 4 mg, Slow Univers [...] Branch 2014, STAT traMADol 50 2020-0 Yes [id number] 50mg Take 1 Univers mg tablet 1-25 tablet by ity o f 00:00: mouth [place] 00 every 6 Medical (six) Branch hours as needed for Pain (scale 4-6). ondansetron 2020-0 Yes [id number] 8mg Take 1 Univers (ZOFRAN 1-25 tablet by ity of ODT) 8 mg 00:00: mouth [place] disintegrat 00 every 8 Medic al ing tablet (eight) Branch hours as needed for Nausea and Vomiting (N/V). traMADol 50 2020-0 Yes [id number] 50mg Take 1 Univers mg tablet 1-25 tablet by ity o f 00:00: mouth [place] 00 every 6 Medical (six) Branch hours as needed for Pain (scale 4-6). ondansetron 2020-0 Yes [id number] 8mg Take 1 Univers (ZOFRAN 1-25 tablet by ity of ODT) 8 mg 00:00: mouth [place] disintegrat 00 every 8 Medic al ing tablet (eight) Branch hours as needed for Nausea and Vomiting (N/V). traMADol 50 2020-0 Yes [id number] 50mg Take 1 Univers mg tablet 1-25 tablet by ity o f 00:00: mouth [place] 00 every 6 Medical (six) Branch hours as needed for Pain (scale 4-6). ondansetron Yes [id number] 8mg Take 1 Univers (ZOFRAN 1-25 tablet by ity of ODT) 8 mg 00:00: mouth [place] disintegrat 00 every 8 Medic al ing tablet (eight) Branch hours as needed for Nausea and Vomiting (N/V). traMADol 50 Yes [id number] 50mg Take 1 Univers mg tablet 1-25 tablet by ity o f 00:00: mouth [place] 00 every 6 Medical (six) Branch hours as needed for Pain (scale 4-6). traMADol 50 2020- No [id number] 50mg Take 1 Univers mg tablet 1-25 07-31 tablet by ity of 00:00: 00:00 mouth [place] 00 :00 every 6 Medical (six) Branch hours as needed for Pain (scale 4-6). ondansetron 2020- No [id number] 8mg Take 1 Univers (ZOFRAN 1-25 05-18 [...] 2020-11-02 17:28:00 117 mm[Hg] Univer sity of [facility] Diastolic blood 2020-11-02 17:28:00 75 mm[Hg] Unive rsity of [facility] Heart rate 2020-11-02 17:28:00 80 /min [facility] Respiratory rate 2020-11-02 17:28:00 20 /min Univ ersity of [place] [facility] Body height 2020-11-02 17:28:00 157.5 cm Universi ty of [place] [facility] Body weight 2020-11-02 17:28:00 90.719 kg Universi ty of [place] [facility] BMI 2020-11-02 17:28:00 36.58 kg/m2 Universi ty of [place] [facility] Oxygen saturation in 2020-11-02 17:28:00 99 /min University of Arterial blood by [place] Medi parth Pulse oximetry Branch Systolic blood 2020-10-02 04:23:00 124 mm[Hg] Univer sity of pressure [place] [facility] Diastolic blood 2020-10-02 04:23:00 86 mm[Hg] Unive rsity of pressure [place] [facility] Heart rate 2020-10-02 04:23:00 76 /min Universi ty of [place] [facility] Respiratory rate 2020-10-02 04:23:00 17 /min Univ ersity of [place] [facility] Oxygen saturation in 2020-10-02 04:23:00 96 /min University of Arterial blood by [facility] parth Pulse oximetry Branch Body temperature 2020-10-02 03:27:00 37.11 Zulma Univ ersity of [place] [facility] Body height 2020-10-02 03:27:00 157.5 cm Universi ty of [place] [facility] Body weight 2020-10-02 03:27:00 91.173 kg Universi ty [facility] [place] [facility] BMI 2020-10-02 03:27:00 36.76 kg/m2 Universi ty of [place] [facility] Systolic blood 2020-07-20 00:00:00 144 mm[Hg] Univer sity of pressure [place] [facility] Diastolic blood 2020-07-20 00:00:00 90 mm[Hg] Unive rsity of pressure [place] [facility] Heart rate 2020-07-20 00:00:00 69 /min Universi ty of [place] [facility] Respiratory rate 2020-07-20 00:00:00 18 /min Univ ersity of [place] [facility] Oxygen saturation in 2020-07-20 00:00:00 95 /min University of Arterial blood by [facility] parth Pulse oximetry Branch Body temperature 2020-07-19 21:57:00 37.22 Zulma Univ ersity of [place] [facility] Body weight 2020-07-19 21:57:00 99.338 kg [facility] BMI 2020-07-19 21:57:00 40.06 kg/m2 [facility] Systolic blood 2019-03-29 03:00:00 112 mm[Hg] Univer sity of pressure [facility] Diastolic blood 2019-03-29 03:00:00 66 mm[Hg] Unive [facility] Heart rate 2019-03-29 03:00:00 76 /min [facility] Respiratory rate 2019-03-29 03:00:00 16 /min [facility] Oxygen saturation in 2019-03-29 03:00:00 98 /min [facility] Arterial blood by [facility] Pulse oximetry [place] Body temperature 2019-03-29 00:03:00 36.39 Zulma [facility] Body height 2019-03-29 00:03:00 157.5 cm [facility] Body weight 2019-03-29 00:03:00 99.791 kg [facility] BMI 2019-03-29 00:03:00 40.24 kg/m2 [facility] Procedures Procedure Date / Time Performing Clinician Source Performed PATHOLOGY OUTSIDE 2021-02-13 00:00:00 Miranda Veliz MD Andleo n INTERPRETATION OSI CT SFT TISS NECK 2021-01-30 15:06:00 Juwan Ardon MD nderson ASSIGNMENT OF BENEFITS 2020-11-02 16:11:47 [facility] [place] [facility] LIPASE 2020-10-02 04:35:00 Jose Rodriguez [facility] COMP. METABOLIC PANEL 2020-10-02 04:35:00 Jose Rodriguez [facility] ([id number]) [facility] CBC WITH DIFF 2020-10-02 04:35:00 Jose Rodriguez [facility] URINALYSIS 2020-10-02 04:32:00 Jose Rodriguez [facility] CONSENT/REFUSAL FOR 2020-10-02 03:12:32 Doctor Unassigned, [facility] DIAGNOSIS AND TREATMENT [place] [facility] COVID-19 (ID NOW RAPID 2020-07-20 00:02:00 Zen Paz [facility] TESTING) Medical Branch LIPASE 2020-07-19 22:26:00 Singer [facility] COMP. METABOLIC PANEL 2020-07-19 22:26:00 Zen Paz [facility] ([id number]) Medical Branch CBC WITH DIFF 2020-07-19 22:26:00 Singer [facility] URINALYSIS 2020-07-19 22:26:00 Singer [facility] NOTICE OF PRIVACY 2020-07-19 21:38:41 Doctor Unanaa, [facility] [place] [facility] CONSENT/REFUSAL FOR 2020-07-19 21:37:52 Doctor Rosie [facility] DIAGNOSIS AND TREATMENT [place] [facility] CT ABDOMEN PELVIS W 2019-03-29 02:36:34 Jose Rodriguez [facility] CONTRAST [facility] POCT TEST 2019-03-29 00:48:00 Jose Rodriguez [facility] LIPASE 2019-03-29 00:47:00 Jose Rodriguez [facility] COMP. METABOLIC PANEL 2019-03-29 00:47:00 Jose Rodriguez [facility] ([id number]) [facility] CBC WITH DIFFERENTIAL 2019-03-29 00:47:00 Jose Rodriguez [facility] URINALYSIS 2019-03-29 00:47:00 Jose Rodriguez [facility] NOTICE OF PRIVACY 2019-03-28 23:58:28 Doctor Unanaa, [facility] [place] [facility] CONSENT/REFUSAL FOR 2019-03-28 23:55:31 Doctor Rosie [facility] DIAGNOSIS AND TREATMENT [place] [facility] Encounters Start End Encounter Admission Attending Care Care Encounter Source Date/Time Date/Time Type Type Clinicians Facility Department ID 2021-02-21 Outpatient SYSTEM, CUCA THURMAN [id number] 16:13:12 PROVIDER Kuldip o n 2021-01-02 Emergency [facility] [id number] Univers 12:14:09 [facility] 2021-01-[address] [facility] ERT [id number] Univers 19:53:57 ity [facility] 2021-01-01 Emergency [facility] [id number] Univers 19:53:02 ity [facility] 2021-03-23 2021-03-23 Outpatient KAROLINA CLAROS [id number] Karolina 00:00:00 00:00:00 ANNABELLA Seybol d 2021-03-23 2021-03-23 Outpatient MIGUEL ANGELLUISKAROLINA [id number] Karolina 00:00:00 00:00:00 AHMED Seybol d 2021-03-14 2021-03-14 Outpatient KAROLINA CLAROS [id number] Karolina 00:00:00 00:00:00 ANNABELLA Seybol d 2021-03-01 2021-03-01 Outpatient KAROLINA CLAROS [id number] Karolina 00:00:00 00:00:00 ANNABELLA Seybol d 2021-02-28 2021-02-28 Outpatient ERIC ARDON [facility] [id number] 09:05:06 09:05:06 JUWAN guidry 2021-02-09 2021-02-09 Outpatient SATNAM MOORE [id number] Karolina 00:00:00 00:00:00 MD RILEY Seybol d 2021-02-07 2021-02-07 Outpatient KAROLINA MOORE [id number] Karolina 09:50:00 09:50:00 Seybol d 2021-02-07 2021-02-07 Outpatient ESTRELLA PARMAR [id number] Karolina 00:00:00 00:00:00 Seybol d 2021-02-06 2021-02-06 Outpatient ESTRELLA PARMAR [id number] Karolina 00:00:00 00:00:00 Seybol d 2021-02-01 2021-02-01 Outpatient KAROLINA MOORE [id number] Karolina 12:40:00 12:40:00 Seybol d 2021-01-30 2021-01-30 Outpatient KAROLINA LEE [id number] Karolina 00:00:00 00:00:00 EUGENIA Seybol d 2021-01-25 2021-01-25 Office LeeJEAN [id number] Karolina 11:30:00 12:00:00 Visit Eugenia Becerra [id number] Seybold [id number] [id number] 2021-01-20 2021-01-20 Outpatient KAROLINA CLAROS [id number] Karolina 00:00:00 00:00:00 ANNABELLA Seybol d 2021-01-18 2021-01-18 Outpatient LAB90 KAROLINA MOORE [id number] Karolina 11:55:00 11:55:00 Seybol d 2021-01-18 2021-01-18 Office Myron Claros [id number] Karolina 10:49:52 11:19:52 Visit Annabella Weaver [id number] Se ybold 1.2.7.2.686 [id number] 2020-11-04 2020-11-04 Letter ROBERTA Kaiser [id number] Univers 00:00:00 00:00:00 (Out) Yajaira JA [id number] it y of [facility] [id number] Gaurang as [id number] [address] 2020-11-02 2020-11-02 Urgent Nasreen Ledezma [facility] [id number] Univers 11:13:05 11:33:05 [facility] [id number] ity [facility] [id number] Gaurang as Bebo?Blea [id number] [address] Medical Office Building 2020-11-02 2020-11-02 Outpatient R [facility] [id number] Univers 11:20:00 11:20:00 [id number] y [facility] 2020-11-02 2020-11-02 [facility] [id number] Univers 11:20:00 11:20:00 RANDY palomino o ady [facility] 2020-11-02 2020-11-02 Orders Doctor GRANADOS [id number] Univers 00:00:00 00:00:00 Only Unassigned, JEAN MARIE [id number] ity of [place] [facility] [id number] Gaurang as [phone] [facility] [address] [place] 2020-10-01 2020-10-02 Emergency Bernardo, [facility] [id number] Univers 22:30:00 01:56:00 Jose Walsh Randall [id number] i ty of [place] 4.2.7.2.686 [id number] [address] 2020-07-19 2020-07-19 Emergency , [facility] [id number] Univers 16:54:00 19:37:00 Zen Randall [id number] i ty of [place] 4.2.7.2.686 [facility] [id number] [address] 2020-07-19 2020-07-19 Orders Doctor ROBERTA [id number] Univers 00:00:00 00:00:00 Only Unassigned, JEAN MARIE [id number] ity of [place] [facility] [id number] Gaurang as [phone] [address] 2020-06-07 2020-06-07 Outpatient LAB90 KAROLINA MOORE [id number] Karolina 10:00:00 10:00:00 Seybol d 2020-06-07 2020-06-07 Outpatient ESTRELLA PARMAR [id number] Karolina 08:30:00 08:30:00 Seybol d 2020-02-04 2020-02-05 Inpatient E NICOLE, BL MED [id number] BL 11:00:00 16:58:00 JOSEPH 2019-09-11 2019-09-11 Laboratory Lab, Adc Fam Pob I [facility] 1.2. [id number] Univers 14:09:42 14:29:42 Only Savana Richardson [id number] ity of [place] [id number] Gaurang as Professio [phone] Wi dical [facility] 044 Branch Office Building One 2019-09-11 2019-09-11 Outpatient R [facility] [id number] Univers 14:20:00 14:20:00 [facility] 2019-09-11 2019-09-11 Outpatient R [facility] [id number] Univers 14:20:00 14:20:00 [facility] 2019-07-29 2019-08-01 [id number] Univers 14:08:13 12:04:00 MACK [facility] 2019-03-28 2019-03-28 [facility] [id number] Univers 18:12:42 22:01:00 Jose Pereira [id number] i ty [place] [id number] [place] [facility] [phone] [address] Results Test Description Test Time Test Comments Results Result Comments Source Pathology Outside Interpretation 2021-03-14 14:07:55 Test Item Value Reference Range Interpretation Comme nts Materials g2tnuCGwEBYtmZEoXoHdTAJoEADvc4deQFGhgXUeGmYeDaEdPyKjJztroVXnHBBrYhJgg5bgw550bYCa l7xdQVNkUnZ2mXDxBERqzGLlE813LEWnDAbsf2fjl7XuKVEfqUPyp6B1DGKFinupwBp8hNklS27mf5K1 XlipW0tzNXZuQGBlD5HsWD5rGZAmLyz3LKL3OWT6SEL Received wOOKhZ8GtJC8jRXLlsAErEKj5i2ggiSidXGSuBRS3e0crWKfkmbAcTO7ctn8inYi6k4pltdQbCPGtDWX vjKCCAWTrR8LlyArmVy4slOw5uUxbNfofTAO4Nza9KZ3vji49yqz9lPqhTTLhasdeCgH8EXkiTZXumow bTCv5JQdcICUrlGjyAWwoRHCmqgptRShkRQDohJI5MW (test code QnbUToQ6DcXKWgREreKWDylps5XiVmXl8uvMQohTupMKieg4wia8pwkYRaWws7RYRjGxJwMqjfDJroh2 Ufy1hnLXBkll7vODB4jTWyfQmns9J7cLQgAHVmtDRteuTxQXGcwe61bCGuvRTcvKXkdd4gvkOvnVQehR EhFZX3vWBlggRkOXNizPZhANVtCR7aqXJiHXJwzP9tm = 9973) jbbUBKzAzJojxykPWAjoGlmtgImRf1zxJdmQOJ5QIgzV0ffdC6gOuV7SXqbN2ebbT9bMYm7ERuuwHV4Z MPnvC2pQA9znwpkc2zwJhLrXO2afxnsd9hlQyMzJO6lozm4z4woAHZ8EIlsGFQsTdZ6frN3QHNbtKOfS XFreXkdHRnly732BPH0WvYiPKEpv9HyI8LfmAweI71t rLszG76dSQFyhTbtlK2ebVykiD8vMlLuTiSjQMv3xd41GYp1ipvzhLhvLZe4vdXcUTRuBXE6OCUwwDFm IZMrI6j8vmPjIJJbZFB5GVYjgVUuCEYzC7p7cbQkQFV8RMv0beHuNXOrkFLaxLXaTVImStDucILsDMFy WqTzIBNfiIEbeIFpbLKlcB5azNyuNVTuiLPbvC3uZMU 7VOEletpvViMwyQJfIOQopVBull52WYYabtKtnRRvaNfldXUjSZJ7BNNoKBQdCEHwYBN5ROYzIqXikxO oBOoogUJeBOYvGAWeCPSvWOMjGLF4POQcScWyuzBkZZccoRNiRATaPHFhRFUqGLUlWNC3MDKpHtVusqM xDEtikXIgVVXoLRWeMJUbNWBkVUB3BUFjRpDvczEvWI ftlSZnEFWqMGjyoSNcIIZ8V2dbuOEnRLLdQVtdoYUgSXGwT5jybRJdTKggQDKgvRWyNkghGANauINzFq QtA3epEDWcXrOrR0BocMv6LMDdCBNgqvZuxKObaMowmWZlGEV9VWPsRXJgSOZoBHY7LFVxJzAtcqYjNV dfaWFdLVXsIRAtVKNdUELmYZX6UFUcRvOizlVwLSsyf TLjIVBqMQEtLEUoLKNjGWX2YCDeXeCvjvZnLZifmLZsULWpHELiQQQeYXFwETQ7TNEfVrFujdKcSHygq TJoVJWmZMqtiWWyLBG1N9clfEOgZXYdETeemCAvKFVeA1vzaXSaWTwoDNRbkNMsBtieQJYngOWrInZsL 1rbUHVaMpUoY1HmyQn4HhEwNFUjpsTtlQJekWijkCEn DZW0RWAmXVZxWKNpGRZ9VLBhOmTrbxDaOSunnHTvSEXkPFGbFAGyIBHuAQX5SJTkZkDbyaUhFWyjhRGu TSFtWMLzIHZfLHHaNEW3JCVeNrPvhmRzXGlwtNGpSZWiIBJnHAAgCAAxRST3RTJoXcZnlrXjKDhmoHSp RMYgYBgtgLBtFWW4F4uhsLMhITQqSSffuNWwERVrI6w cxGWsQDhyUYNcjEAxPyrqMDRxlQXfJvWgD8ooRZSjDtWyW7MmvNq3QnMyDJZjjtXlaV42Hcurb1TiZDH yJRX6KRvjSXeagSehuBVupfbeNNafkeXcHKhodpnrROJwFTuvB5wyEaEtTNYsvExtRHhtu4AtCCWsLYM iTbcxpgKrTJRhUVEvQZSjxE1xTguwB5DnxT8gDMbrKh boI7ycBFVzs3SbkB7bKNipgFZzoitvSCusllBlZBquebhlQKMjANugV3axUtMfHVKmgMytIAcmr8KcLH IuVBKsTauvgvHtRQi1llOxEKUncBcbiVGmRWayfjRyhPysp8AfhhNicDlwCTYrBLp5wtTlfgngxQc2aE CeyHkmGEZhlKkfpU2bWtOiYoYbSNgfxQYzbzixRYbqk gHmZJxqdejhYMYjJFcnX5ulSoUwIMXnyYggZBjmr6MvVPWfNKZrBdwtbmIgNBPjG51mnOPejHVqPSLwN TmjUSWrLUEtFbNnoBDwNkZbKwVteCcxnRthATqrPmUlGMPiNOkjD2cqYqXdO1EbIUEhUdZjbBZwG5neK 7MhaDbfEKQuPSsnkMEzGMWipWHkSLL0gDPjlgVbtLOn kNOlDVXhORmmFYY7nESdbwwhnBJwenkqBNtonyR6TFNuOSzaYASkTFSkFwOciBNpRfNoChPjoBjgyZta DTwqEqTeAKWdRHnbK2duAvVhZ7NkYNTqSsPyRbBWHFTozHFtRVnhqTNojsvyGCjmnqPsXGgiuburGAUw YGnvE0siUyYqMNKloSbkNXmqb8YmPKJuKBDrVgrbklP aEMb5thAqRYJyxYarrY91Enaxjo24GUAkm9gtJOBgK1ZdiBXhNOCkpHFoGTnlTRjlaHPcTGGdRjjdPSX pjZLmWNGxOBvywHZvOHXzZpEjRGNarRLlSGLwTABgbMOcUCJ5O3b8qlHuAJKiOVg1mnVlGNSaXyWehEG mQAH9URj6FzvmivI9lUOwV1x7EhqlkzFkKVzgfYMvwd 79OBYxzqCslJOxfPzpxPTeJAG5UXJuERCqLAEfPZR6EBQdKxAwotNtDRixfNDdDWZsQDTzPZWsYOTmVC V0LNUuGcVrbsHrDSlvrTJsQKCsDNWqEBIlTKSiZVS7CSEpPkQvjjSjXRkuuEQmLKHeVCGjZLWzJKYsCC T0SDUiVdPlbtDwUXsatJGfJTJnQKheqRYhKCU9J3vbd CGyAKVcZGvddXWsVCAvT3xccHJwDMtqCKBwxDXsNyqlMGDxaBSyLmYpE7cjJLIwAyJaQ7LyzTj6NFQgW THuxaArlCCydLnvgSQbDXG3ZKIqECKeFMCpONO2SAPzRgYwdkJyWAyrhQFxFPEjIOSgKYDpHXQqPXH7Q RNiTxEcuqAqNEkhbIBcZDIsAPPzOMOrZJTgYSZ8YZKr EpDcczKyGAfrsVExBPUyNUVeLPPyNYUjWRL0ZRFmXoOduqXzXAjmmZSkJICpNVccaGLmZWM3N5zmzRRo RPQzVVbnxXLmSMIsR1mkgNRhAHtoCOGzxHDeVcqpCIAciBDcDdMsP8phGWVuKrIiS0LyuWe2AyEqVJNo bvDwmVHluUgkaQHiTFR0RKErWKUnFXKdOPP8RYZgCbA xsjPvZNdxfPNsXIQzRPKuWCZxQFCsVIG9BSXmOjSgyeMlIXrvhDEwHGBcFYDqYCReSRWpBEL2YDDmOnW hneHdTWquaXRiDFOtQFGnOSGaQOShYUA4BYFbEnDeltJdDPmqqJInPSDnETnllPCwEYR1U8hdjPAkIQZ sKSzpqFDhDVNcF7bekICwATwmBNRorXXlJtncQPUkvF HbKxJvJ7fjEGPuBaKrF9OkjRh6OvXhRXSrwgHisH77Nhuko3SrTIArHVK0UHzcLZtwoPxcpJRelwgoYP ldbuU5OQKcSWtwLLUeUDSvYqGncEJzVaReFqUhaWnfaPynMTdbBfOuBVNpDBsqQ3hrLvHqO6KnZDIcSo HvUC3wArP1FSCvXMOxKYMeXQFRIkjhNQFDVH2TT5SdQ KUeVDOAZJNzSDzfYIImXFRhBqTbxMPnXuGoQbCvoIazbTtnWBviYhGcNVWdBXvsO9utXuZpX2SvJUUiA aZvuASbK3ttO0VilIwyZMJhWBivgGVrWCBzkXStXQB9gTSmzbMmcAeruJoviD3aBhShPyVrZRkuyQCjt nvdXBkvlqKqFRamvhrtNDCdFXarI9zeYmLmVRAesFro HIupo7YzFYAiUABbRagrwaStJKHfNnMmAkVzDeNrjGuvoU3yZkKiAzJnUYbbQS7jLWZsL3csnHZhGGVq QXZhJ7dePjAwaI6phXveAOavMeBmTkDdRQgeaCExrXdjDNgcQPLlvuNidS87Oyemp9QkJTDdJFL1RUir WPompIymyAZbestqPYldxwM2AOBmRMimHGIoKKEiAqH xqKJmSdLdHxJduGkxdBpiSDcwOsUeUIYsTIrqS7iwPfNvX5UjNHQlKcBjNQ8pOI5hSPFzSYJiJDprGMJ xBNBaAzBvzXAmFdJoYaKkrEdmdJjbTTehHsMePERqOHjqC5lrMkIrG6BqRASoNkTsiCHoY4caX5UtaEl tynErhYyzl9ewcYFkMRocf1EpkuPasTzdXNEkJZKsNJ BmNYvyIXVzHLSgUpKxoYwaoR7eEuMfBvFzBBixUJ2zYZDoF8lgbXQnVEJrNTVzD9ebJfUxmF8kwGbtOA xmczIwXHBhcn0= Diagnosis l9mvvVYzLDCdbSQ6RvZuLPMmp5bcn9JerBJmvNKvLRtkpZElrvAxhi92sYQ9xG46KF2fLIQvJtT5SDJq loK6Qbs9SJJbNVDppIPpC491a8vyp8hmcvDokYG0YDTnMDRaH7FdDJ5jDBNevPYhG91saNJePXI0CGWc AXKpgLVoZMUiEFN9BPNqyAAyN4sxTQKwFA4zwlnqHMw (test code bJHdsMPPhoLP8DRTbdGXiS0CxQKRjFBcpBFHhkeu7PjTzXd3vfMWjmXbiEPbkQEMrXWGdQInfHZAiJhF cC8LtYRe4nGFmQV3aDBTkPVatEsBuaRMlOPBxcsYqdcjtROF0R2valG5vSSdaMizttXF7VvjfJJQaE9F vJGMwtzrwmFngNJghoR07QcFvCRkYRzHHQPYXFFYGGK = 34) GENTBACZicFViVBQdDZDXsARkhKYbgMUlcHR0HALQTZGcKR9RYXXYqOLrTZRyBIUYzNKyMNRCFWWOEBP oiXQ3mNMJdKADqvshxZEXoBCgwBK6lv8RjKVUhHNzjilRnWDwpqj4whvBfTFMgecGlfaKRXXSliBgouC 5ekE7lrDihsm05jHHyCYBoLASIaZ21CoRdnuL+OTAtO TUlIFxwYXJccGFyZFxwYXJ9 Comment n8ouzEZbIUEnhJN8YnFtRAUrq1bbe9EfxKBvjWAsTEqwuGMbnlMjgg40wGA6gZ46QB7uHHXvXjK0TMYo xtC6Djq0DZMbQIDnhHBrE338k3vhy2wdwnMxvJU6yNlmRJOiskyxGcZ7JGiuACTpshopHCz3KSnwMEXd cLK8QGKcvFWuF7FyATJvVM1oljr9XQW6IUwaWKFrTvU (test code 6HEAqnQVeETGzdFpoMLyek924YAS2MnGzMEThnuOobOhtvG3wRzYaNUMBtDJ5y6dvZ0yqRUGrL5Fdp74 oMHCzn7mzuGyucLnmkg0jZTUzobN6bEqtyWQ2qXXhZZGnrDt3EWW5rXWmNLenKKIzeE5lvQYpa02nhAH 9UJm5UUStiNxoR3JoCMC1QMh9vRVbw50jUjCkCQ2fhW = 9835) [file] uFJpM7XyYw66SRdfLOGRWVSrewjyIRC1 Disclaimer r3kbpQYwCHQkhKLoIgIlLZKjWOCqw5gaLIFaxLExCgVfFzYwLiFiXqrdeIXsSKBjBeGtp6qef607lVPd n8uwMGXxEqK1cKOqASQlcTPlE287NDCjKKvpb7fcr0VfYMVmpCXsj7G8XTCQoevnmGc8iMhfD58wa0J0 VrzhD4lwJIChFDMiA3GvLW8eAILpUqj7CJS1IZT5EDY (test code tNDHpK6UfAK0uSQHkbWSnFUh3e5couJnbQWWmPOM5s2joERkqghQfMX3jat1jsEo0w5wgyrBtQXEuQAS yvJAVQYPzD4UjnAvbBs8elFy6wOolFljeMDJ0Owe3CT7ryp63ddz6aHrhOHBtkxegNvX1REcgERAduwu fAZf3OWruLQCqtKT7VLLzpAXjE1FuRMScDS1tale0HN = 9844) G6YMtgRYZzVnS1HYEdpYZfZCYoxOnyYDecg524YBH2VjEaUS8oB2Qub9S9oG6bgZRdTXPhsBWsZrYwCJ Lrdo6uuPKaKKvdf6EfESA2zwW9xYPbkIWsNZMvFR35Amadv0JqZfzuIBF6UZHfapOpw7Iiu4meUkNbdn ZnT2phG5QjVQLvCPDbVYYsKrAxncNeb8Yxw9VawWJqi Bc8p1swOFEaQBXaoHxvb7wrWXT3JPScD9T4bRGue5geNXxgUYYgsZK0sjY1ARNjeYTyL2McdG4iDVVzS N3qxdp9s6okQFZ0SAxwCRWuMfE9ztH3XQQvuUAhQZTkyYvuKVdfn278HYQ3ZnAgALSvz9HxU0BxoZskS 15jjImfJ76aKEScsLxrrW3pwMcmhB5yHuDnPqRzWTvo lWypoJIijasaCRzjolQ8CSnmrjloOGUpNFgqX3fwFiOoBIEnzEuyMPsim7LrROQwGBTpNfabvbN0UGLW w45iYWDtj5PiUGCezC9odLIiIEynvqNeqQL0PIcezqQxHiTtepJdQMFrlA1pYGPsWB6iEGNyomZkiy5i izPkBOInYXFcU0NqxefbwNgepfQrWTYcuh8hwyWxKMN 2OENUXU9FLMRhDWQoq17zXAXbfGczcJ8igWYdweXhASHtd2HgwD1ohGEMJPQrI4fpOI5aAPbih8FxhZP ddQPaoQF9OJSbc5KjTxRjzuBycINolLBoA1AsrOfeL9qeTDQsFOYfusPujXLpx1VjSLTojFM6nFIrVO4 IEuGZb02xQKOlIIDSozJaYUUbmPrlgXC5swV9mY5wXu YTKcXlcZPlpGIdSlhmCKLdu912qw8knnI7EHYgKLQusspef0YmBTXlMIXfvK90JZHbLBLrlj0ghibqpD YntpRuR1Eefhj2bN5mBHWxZWpxEZKxOVKfQtEcsTDeJdIvKfLjpTamzOadXGyqDyKaGKPxTSvkR7rvZf FcZnMyMlxwYXJ9 MD [facility]EMariam. METABOLIC PANEL ([id number])2020-10-02 04:58:30 Test Item Value Reference Range Interpretation Comments NA (test code = 138 mmol/L 135-145 9150649486) K (test code = 3.9 mmol/L 3.5-5.0 3965731214) CL (test code = 102 mmol/L 98-108 7458069847) CO2 TOTAL (test code = 25 mmol/L 23-31 5081453055) AGAP (test code = 2-16 8526192795) BUN (test code = 20 mg/dL 7-23 0122665260) GLUCOSE (test code = 96 mg/dL 70-110 5607595378) CREATININE (test code = 0.56 mg/dL 0.50-1.04 4525364293) TOTAL BILI (test code = 0.8 mg/dL 0.1-1.7 8582416849) CALCIUM (test code = 10.2 mg/dL 8.6-10.6 8620838973) T PROTEIN (test code = 8.8 g/dL 6.3-8.2 H 6943570362) ALBUMIN (test code = 4.7 g/dL 3.5-5.0 3633916050) ALK PHOS (test code = 99 U/L 34-122 8545370944) ALTv (test code = 38 U/L 5-35 H 2-6) AST(SGOT) (test code = 31 U/L 13-40 2900127677) eGFR (test code = mL/min/1.73m2 4884829822) SCOTT (test code = SCOTT) Association of [...] tests). Lab Interpretation Abnormal (test code = 77711-2) [facility]30 Test Item Value Reference Range Interpretation Comments LIPASE (test code = 0324480975) 243 U/L 0-220 H Lab Interpretation (test code = Abnormal 28756-6) [facility] 04:51:44 Test Item Value Reference Range Interpretation Comments APPEARANCE (test code = Clear Clear 8017257375) COLOR (test code = Yellow Yellow 1073799200) PH (test code = 4.8-8.0 9264115805) SP GRAVITY (test code = 1.003-1.030 9216687649) GLU U QUAL (test code = Normal Normal 2068436029) BLOOD (test code = Negative Negative 6495679437) KETONES (test code = Negative Negative 2519188445) PROTEIN (test code = Negative Negative 2887-8) UROBILIN (test code = Normal Normal 5746482732) BILIRUBIN (test code = Negative Negative 9114372407) NITRITE (test code = Negative Negative 2089621984) LEUK BAILEY (test code = Negative Negative 1444619861) RBC/HPF (test code = See_Comment [Autom ated message] 1635704797) The system [employer] generated this result transmitted ref erence range: 0 - 3 HP F. The reference range was not used to int erpret this result as normal/abnormal . WBC/HPF (test code = See_Comment [Autom ated message] 0741828191) The system [employer] generated this result transmitted ref erence range: 0 - 5 HP F. The reference range was not used to int erpret this result as normal/abnormal . BACTERIA (test code = Negative Negative 8267277275) MUCOUS (test code = Slight Negative LPF A 8945390896) SQ EPITH (test code = HPF 3074409574) Lab Interpretation (test Abnormal code = 21830-2) [facility] WITH [id number] 04:45:31 Test Item Value Reference Range Interpretation Comments WBC (test code = See_Comment [Automated 2290-2) message] The sy stem which generated this result transmitted reference range : 4.30 - 11.10 10*3/?L. The reference range was not used to interpret this result as normal/abnormal . RBC (test code = See_Comment [Automated 459-8) message] The sy stem which generated this [...] (test code = 38.7 fL 39.0-49.9 L 49783-7) RDW-CV (test code = 12.9 % 12.0-15.5 788-0) PLT (test code = See_Comment [Automated 777-3) message] The sy stem which generated this result transmitted reference range : 166 - 358 10*3/ ?L. The reference r lenard was not used to interpret this result as normal/abnormal . MPV (test code = 9.4 fL 9.5-12.9 L 39548-5) NRBC/100 WBC (test See_Comment [Automat ed code = 4147698292) message] The system which generated this result transmitted reference range : 0.0 - 10.0 /100 WBCs. The refer ence range was not u sed to interpret th is result as normal/abnormal . NRBC x10^3 (test code <0.01 See_Comment [Auto mated = 9668147365) message] The s ystem which generated this result transmitted reference range : 10*3/?L. The reference range was not used to interpret this result as normal/abnormal . GRAN MAT (NEUT) % 52.7 % (test code = 770-8) IMM GRAN % (test code 0.20 % = 4325387681) LYMPH % (test code = 38.2 % 736-9) MONO % (test code = 7.6 % 5905-5) EOS % (test code = 1.0 % 713-8) BASO % (test code = 0.3 % 706-2) GRAN MAT x10^3(ANC) 3.33 10*3/uL 1.88-7.09 (test code = 3269321531) IMM GRAN x10^3 (test <0.03 0.00-0.06 code = 7103367884) LYMPH x10^3 (test code 2.41 10*3/uL 1.32-3.29 = 731-0) MONO x10^3 (test code 0.48 10*3/uL 0.33-0.92 = 742-7) EOS x10^3 (test code = 0.06 10*3/uL 0.03-0.39 711-2) BASO x10^3 (test code <0.03 0.01-0.07 = 704-7) Lab Interpretation Abnormal (test code = 03903-5) [facility] (ID NOW RAPID TESTING)2020-07-20 00:25:44 Test Item Value Reference Range Interpretation Comments SARS-CoV-2 Rapid ID NOW Not Detected Not Detected (test code = 81948-3) SCOTT (test code = SCOTT) ID NOW COVID-19 Assay is an isothermal nucleic acid amplification test intended for the qualitative detection of nucleic acid from SARS-CoV-2 viral RNA in nasopharyngeal (EXTRUDER OPERATOR MULTIPLE) specimens. It is used under Emergency Use [...] indicated. Lab Interpretation Normal (test code = 39446-2) [facility]. METABOLIC PANEL ([id number])2020-07-19 22:47:37 Test Item Value Reference Range Interpretation Comments NA (test code = 139 mmol/L 135-145 1693364371) K (test code = 3.6 mmol/L 3.5-5.0 8962698702) CL (test code = 103 mmol/L 98-108 3834283382) CO2 TOTAL (test code = 27 mmol/L 23-31 2767571234) AGAP (test code = 2-16 3813118981) BUN (test code = 18 mg/dL 7-23 0178434161) GLUCOSE (test code = 98 mg/dL 70-110 9604478128) CREATININE (test code = 0.78 mg/dL 0.50-1.04 9286877576) TOTAL BILI (test code = 0.7 mg/dL 0.1-1.5 8997651295) CALCIUM (test code = 9.9 mg/dL 8.6-10.6 6302117578) T PROTEIN (test code = 7.4 g/dL 6.3-8.2 1892297527) ALBUMIN (test code = 4.3 g/dL 3.5-5.0 3967048215) ALK PHOS (test code = 97 U/L 34-122 1055869913) ALTv (test code = 39 U/L 5-35 H 1742-6) AST(SGOT) (test code = 32 U/L 13-40 1817440061) eGFR (test code = mL/min/1.73m2 0909085830) SCOTT (test code = SCOTT) Association of [...] tests). Lab Interpretation Abnormal (test code = 00639-7) [facility]21-[facility]-18 22:47:02 Test Item Value Reference Range Interpretation Comments APPEARANCE (test code = Clear Clear 9876899473) COLOR (test code = Yellow Yellow 6530464975) PH (test code = 4.8-8.0 9211826574) SP GRAVITY (test code = 1.003-1.030 9148088682) GLU U QUAL (test code = Normal Normal 6066884516) BLOOD (test code = Negative Negative 3313543440) KETONES (test code = Negative Negative 3215501781) PROTEIN (test code = Negative Negative 2887-8) UROBILIN (test code = Normal Normal 8719648243) BILIRUBIN (test code = Negative Negative 3826045130) NITRITE (test code = Negative Negative 5535452246) LEUK BAILEY (test code = Negative Negative 0075953217) RBC/HPF (test code = See_Comment [Autom ated message] 4034782066) The system [employer] generated this result transmitted ref erence range: 0 - 3 HP F. The reference range was not used to int erpret this result as normal/abnormal . WBC/HPF (test code = See_Comment [Autom ated message] 4351173892) The system [employer] generated this result transmitted ref erence range: 0 - 5 HP F. The reference range was not used to int erpret this result as normal/abnormal . BACTERIA (test code = Negative Negative 3925968409) MUCOUS (test code = Slight Negative LPF A 3198104126) SQ EPITH (test code = HPF 2587412144) Lab Interpretation (test Abnormal code = 94785-3) [facility] 22:46:57 Test Item Value Reference Range Interpretation Comments LIPASE (test code = 0827929873) 277 U/L 0-220 H Lab Interpretation (test code = Abnormal 53995-1) [facility] WITH [id number] 22:37:16 Test Item Value Reference Range Interpretation [...] (test code = 34.9 fL 39.0-49.9 L 87509-6) RDW-CV (test code = 12.0 % 12.0-15.5 788-0) PLT (test code = See_Comment [Automated 777-3) message] The sy stem which generated this result transmitted reference range : 166 - 358 10*3/ ?L. The reference r lenard was not used to interpret this result as normal/abnormal . MPV (test code = 9.7 fL 9.5-12.9 83240-3) NRBC/100 WBC (test See_Comment [Automat ed code = 2702739589) message] The system which generated this result transmitted reference range : 0.0 - 10.0 /100 WBCs. The refer ence range was not u sed to interpret th is result as normal/abnormal . NRBC x10^3 (test code <0.01 See_Comment [Auto mated = 3192939601) message] The s ystem which generated this result transmitted reference range : 10*3/?L. The reference range was not used to interpret this result as normal/abnormal . GRAN MAT (NEUT) % 47.2 % (test code = 770-8) IMM GRAN % (test code 0.40 % = 3883679335) LYMPH % (test code = 43.2 % 736-9) MONO % (test code = 7.5 % 5905-5) EOS % (test code = 1.2 % 713-8) BASO % (test code = 0.5 % 706-2) GRAN MAT x10^3(ANC) 2.69 10*3/uL 1.88-7.09 (test code = 4553792335) IMM GRAN x10^3 (test <0.03 0.00-0.06 code = 4750234908) LYMPH x10^3 (test code 2.46 10*3/uL 1.32-3.29 = 731-0) MONO x10^3 (test code 0.43 10*3/uL 0.33-0.92 = 742-7) EOS x10^3 (test code = 0.07 10*3/uL 0.03-0.39 711-2) BASO x10^3 (test code 0.03 10*3/uL 0.01-0.07 = 704-7) Lab Interpretation Abnormal (test code = 57903-2) [facility] PELVIS W AIAKRLQB1232-19-23 02:46:10Postsurgical changes with anastomoses sutures in the rightcolon.2. Fluid-filled loops of normal caliber mid and distal small bowel may be anonspecific enteritis.3. Previous hernia repair. No recurrent hernia.4. No hydronephrosis.5. No free fluid. RL: [id number]: [id number] END OF REPORT Ordering Physician: JOSE RODRIGUEZ [...] hernia.4. No hydronephrosis.5. No free fluid.RL: [id number]: [id number] OF REPORT [facility] Metabolic [id number] 01:12:00 Test Item Value Reference Range Interpretation Comments NA (test code = 140 mmol/L 135-145 8312479703) K (test code = 3.7 mmol/L 3.5-5 2930951540) CL (test code = 104 mmol/L 98-108 1145525184) CO2 TOTAL (test code = 26 mmol/L 23-31 0809145265) AGAP (test code = 2-16 6591797571) BUN (test code = 10 mg/dL 7-23 3077065088) GLUCOSE (test code = 99 mg/dL 70-110 6761584529) CREATININE (test code = 0.53 mg/dL 0.5-1.04 1107881613) TOTAL BILI (test code = 0.5 mg/dL 0.1-1.1 0801925983) CALCIUM (test code = 9.7 mg/dL 8.6-10.6 2383354460) T PROTEIN (test code = 8.8 g/dL 6.3-8.2 H 7879148605) ALBUMIN (test code = 4.6 g/dL 3.5-5 4846201172) ALK PHOS (test code = 126 U/L 34-122 H 4159322274) ALTv (test code = 63 U/L 5-35 H 1742-6) AST(SGOT) (test code = 45 U/L 13-40 H 9562155165) eGFR Calculation mL/min/1.73m2 (Non-) (test code = 1168585174) eGFR Calculation mL/min/1.73m2 () (test code = 5184386049) SCOTT (test code = SCOTT) Association of [...] tests). Lab Interpretation Abnormal (test code = 58161-9) [facility], [id number] 01:12:00 Test Item Value Reference Range Interpretation Comments LIPASE (test code = 2460348713) 166 U/L 0-220 Lab Interpretation (test code = Normal 51291-1) [facility]ie[facility]inalysis2020-01-26 01:09:00 Test Item Value Reference Range Interpretation Comments APPEARANCE (test code = Clear Clear 5318456486) COLOR (test code = Yellow Yellow 4195346732) PH (test code = 4.8-8.0 4574431380) SP GRAVITY (test code = 1.003-1.030 5717914912) GLU U QUAL (test code = Normal Normal 0935731672) BLOOD (test code = Negative Negative 9462712881) KETONES (test code = Negative Negative 7140214149) PROTEIN (test code = Negative Negative 2887-8) UROBILIN (test code = Normal Normal 3361443925) BILIRUBIN (test code = Negative Negative 0692838797) NITRITE (test code = Negative Negative 2919851187) LEUK BAILEY (test code = 25/uL Negative A 2195352561) RBC/HPF (test code = See_Comment [Autom ated message] 2169505271) The system [employer] generated this result transmitted ref erence range: 0 - 3 HP F. The reference range was not used to int erpret this result as normal/abnormal . WBC/HPF (test code = See_Comment [Autom ated message] 4042882405) The system [employer] generated this result transmitted ref erence range: 0 - 5 HP F. The reference range was not used to int erpret this result as normal/abnormal . BACTERIA (test code = Negative Negative 4731843877) MUCOUS (test code = Slight Negative LPF A 0169862857) SQ EPITH (test code = HPF 9825657308) Lab Interpretation (test Abnormal code = 01344-9) [facility] WITH [id number] 00:58:00 Test Item Value Reference Range Interpretation Comments WBC (test code = See_Comment [Automated 7690-2) message] The sy stem which generated this [...] (test code = 35.2 fL 39-49.9 L 24338-7) RDW-CV (test code = 12.3 % 12-15.5 788-0) PLT (test code = See_Comment [Automated 777-3) message] The sy stem which generated this result transmitted reference range : 166 - 358 10*3/ ?L. The reference r lenard was not used to interpret this result as normal/abnormal . MPV (test code = 9.3 fL 9.5-12.9 L 78957-6) NRBC/100 WBC (test See_Comment [Automat ed code = 3240643932) message] The system which generated this result transmitted reference range : 0.0 - 10.0 /100 WBCs. The refer ence range was not u sed to interpret th is result as normal/abnormal . NRBC x10^3 (test code <0.01 See_Comment [Auto mated = 3518288791) message] The s ystem which generated this result transmitted reference range : 10*3/?L. The reference range was not used to interpret this result as normal/abnormal . GRAN MAT (NEUT) % 51.0 % (test code = 770-8) IMM GRAN % (test code 0.40 % = 3923445942) LYMPH % (test code = 38.3 % 736-9) MONO % (test code = 7.6 % 5905-5) EOS % (test code = 2.1 % 713-8) BASO % (test code = 0.6 % 706-2) GRAN MAT x10^3(ANC) 2.69 10*3/uL 1.88-7.09 (test code = 6643450726) IMM GRAN x10^3 (test <0.03 0-0.06 code = 0687176815) LYMPH x10^3 (test code 2.02 10*3/uL 1.32-3.29 = 731-0) MONO x10^3 (test code 0.40 10*3/uL 0.33-0.92 = 742-7) EOS x10^3 (test code = 0.11 10*3/uL 0.03-0.39 711-2) BASO x10^3 (test code 0.03 10*3/uL 0.01-0.07 = 704-7) Lab Interpretation Abnormal (test code = 87670-5) [facility] [id number] 00:48:00 Test Item Value Reference Range Interpretation Comments POCT PREG (test code = 1605) negative On board controls acceptable with present C Line (test code = 3574) POCT PREG LOT # (test code = 3575) [id number] POCT PREG TEST DATE (test 10/02/2019 code = 3576) Lab Interpretation (test code = Normal 06252-3) [facility] W/ [id number] 05:12:00 Test Item Value Reference Range Interpretation [...] code Urine, Clean Catch = 2795) SCREEN, [id number] 05:00:00 Test Item Value Reference Range Interpretation Comments TEST URINE (BEAKER) (test Negative code = 583) BASIC METABOLIC [id number] 03:20:00 Test Item Value Reference Range Interpretation [...] m DATA TO CALCULA TE ESTIMATED GFR. [id number] 03:08:00 Test Item Value Reference Range Interpretation Comments MAGNESIUM (BEAKER) 2.0 mg/dL 1.6-2.6 Specimen slightly (test code = 627) hemolyzed [id number] 03:08:00 Test Item Value Reference Range Interpretation Comments PHOSPHORUS (BEAKER) 2.6 mg/dL 2.3-4.7 Specimen slightly (test code = 604) hemolyzed HEPATIC FUNCTION [id number] 03:08:00 Test Item Value Reference Range Interpretation [...] 347) hemolyzed CBC W/PLT COUNT & AUTO [id number] 02:54:00 Test Item Value Reference Range Interpretation [...]
[2021-04-24] MEDS ORDERED: NA CHLORIDE 0.9% 500 ML ONE (12:55)
[2021-04-24] MEDS ORDERED: MORPHINE 4 MG/ML SYR ONE ×3 (12:55→14:25)
[2021-04-24] MEDS ORDERED: ONDANSETRON 4 MG/2 ML VIAL ONE ×3 (12:55→19:12)
[2021-04-24 13:11] LABS: Absolute Lymphocytes (CBC) 0.8 K/uL (0.7-4.9); Hematocrit 31.4 % (36.0-45.0); Lymphocytes % 5.1 % (15.3-44.8); MPV 7.4 fL (7.6-11.3); RBC Red Blood Cell Count 3.72 M/uL (3.86-4.86)
[2021-04-24] MEDS ORDERED: PROMETHAZINE INJ 25 MG/ML AMP ONE ×2 (13:28→15:22)
[2021-04-24 13:33] LABS: ALT/SGPT 19 U/L (12-78); AST/SGOT 10 U/L (15-37); Alkaline Phosphatase 95 U/L (45-117); BUN Blood Urea Nitrogen 8 mg/dL (7-18); Bicarbonate 28 mmol/L (21-32); Bilirubin Direct 0.1 mg/dL (0-0.2); Bilirubin Total 0.4 mg/dL (0.2-1.0); Glucose Level 93 mg/dL (74-106); Lipase 108 U/L (73-393); Magnesium 2.1 mg/dL (1.8-2.4); NT PRO-BNP 39 pg/mL (<125); Potassium 3.6 mmol/L (3.5-5.1); Protein, Total 6.4 g/dL (6.4-8.2); Sodium Level 139 mmol/L (136-145)
[2021-04-24] MEDS ORDERED: NA CHLORIDE 0.9% 1,000 ML ONE ×2 (13:35→22:47)
--- NOTE | 2021-04-24 14:04 | RAD REPORT ---
EXAM DESCRIPTION: CT - Abdomen Pelvis W Contrast - 04/24/2021 1:47 pm CLINICAL HISTORY: Abdominal pain COMPARISON: April 2020 TECHNIQUE: Computed axial tomography of the abdomen pelvis was obtained. 100 cc Isovue-300 was admin istered intravenously. Oral contrast was not requested which limits evaluation of bowel. All CT scans are performed using dose optimization technique as appropriate and may include automated exposure control or mA/KV adjustment according to patient size. FINDINGS: Fatty liver. Cholecystectomy 1Spleen, pancreas, adrenal and kidneys appear unremarkable. A right hemicolectomy. Fluid within nondilated and borderline dilated small bowel and nondilated colon. The wall of portions of the colon mildly thickened. Hysterectomy. No significant lymphadenopathy seen IMPRESSION: Fluid within nondilated in borderline dilated small bowel and nondilated colon. The wall of portions of the colon mildly thickened. These findings probably indicate mild bowel inflammation
--- NOTE | 2021-04-24 14:06 | RAD REPORT ---
EXAM DESCRIPTION: Raul Single View04/24/2021 12:31 pm CLINICAL HISTORY: cough COMPARISON: April 09, 2021 FINDINGS: The lungs appear clear of acute infiltrate. The heart is normal size IMPRESSION: No acute abnormalities displayed
[2021-04-24 14:07] LABS: Urine Blood Negative (Negative); Urine Glucose Negative (Negative); Urine Protein Negative (Negative); Urine pH 6.5 (5.0-7.0)
[2021-04-24 14:13] LABS: Blood Morphology Comment NOT SEEN (NOT SEEN); Platelet Estimate ADEQ; White Blood Cell Scan OK (OK)
--- NOTE | 2021-04-24 14:13 | ER ---
Nurse's Notes [facility] Name: Maris Arias Age: 40 yrs Sex: Female : 1980 Arrival Date: 04/24/2021 Time: 11:33 Bed 13 Private MD: Diagnosis: Left sided colitis without complications;Other viral enteritis;Abdominal pain, Generalized-hx of NHL on Chemo;Enterocolitis due to Clostridium difficile-history of;Elevated white blood cell count Presentation: 04/24 11:44 Chief complaint: Patient states: Currently receiving chemotherapy for non-hodgkins ph lymphoma, had second tx yesterday, states, " After her first treatment she got c-diff and I think she has it again. Reports fatigue, weakness, N/V/D and diffuse abdominal pain. Coronavirus screen: Vaccine status: Patient reports receiving the 2nd dose of the covid vaccine. Ebola Screen: No symptoms or risks identified at this time. Initial Sepsis Screen: Does the patient meet any 2 criteria? No. Patient's initial sepsis screen is negative. Does the patient have a suspected source of infection? No. Patient's initial sepsis screen is negative. Risk Assessment: Do you want to hurt yourself or someone else? Patient reports no desire to harm self or others. 11:44 Method Of Arrival: Ambulatory ph 11:44 Acuity: CELESTE 3 ph 13:05 Onset of symptoms was April 24, 2021. kd3 Triage Assessment: 13:04 General: Appears uncomfortable, ill, Behavior is calm, cooperative, appropriate for kd3 age. Pain: Complains of pain in abdomen. GI: Reports diarrhea, hx of Cdiff. pt report similar symptoms. 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 - Social history:: Smoking status: Patient denies any tobacco usage or history of. Screenin:03 Abuse screen: Denies threats or abuse. Denies injuries from another. Nutritional kd3 screening: No deficits noted. Tuberculosis screening: No symptoms or risk factors identified. Fall Risk IV access (20 points). Assessment: 13:06 GI: Abdomen is flat, obese, Stools are reported to be diarrhea. Last BM was April3 2021. 14:40 Reassessment: Patient and/or family updated on plan of care and expected duration. Pain kd3 level reassessed. Patient is alert, oriented x 3, equal unlabored respirations, skin warm/dry/pink. pt says pain is better for now. General: Appears ill, Behavior is calm, cooperative. Pain: Complains of pain in abdomen. 14:41 Neuro: No deficits noted. Cardiovascular: No deficits noted. Respiratory: No deficits kd3 noted. GI:. : No deficits noted. EENT: No deficits noted. Derm: No deficits noted. Vital Signs: 11:44 BP 133 / 82; Pulse 101; Resp 18; Temp 98.2(TE); Pulse Ox 96% on R/A; Weight 90.72 kg; ph Height 5 ft. 2 in. (157.48 cm); 16:11 BP 118 / 73; Pulse 84; Resp 17; Temp 97.8; Pulse Ox 94% ; kd3 11:44 Body Mass Index 36.58 (90.72 kg, 157.48 cm) ph ED Course: 11:33 Patient arrived in ED. mr 11:47 Triage completed. ph 11:47 Arm band placed on. ph 11:48 Elly Albrecht, ELVIRA is Primary Nurse. kd3 12:01 Loi Castle MD is Attending Physician. [facility] 12:31 XRAY Chest (1 view) In Process Unspecified. EDMS 13:02 Inserted saline lock: 22 gauge in right forearm, using aseptic technique. Blood jd3 collected. 13:03 Patient has correct armband on for positive identification. kd3 13:47 CT Abd/Pelvis - IV Contrast Only In Process Unspecified. EDMS 14:08 Urine Culture Sent. kd3 14:11 Lawrence Nava MD is Hospitalizing Provider. raul Administered Medications: 13:01 Drug: morphine 4 mg Route: IVP; Site: right forearm; kd3 13:01 Drug: Zofran (Ondansetron) 4 mg Route: IVP; Site: right forearm; kd3 13:02 Drug: NS 0.9% 500 ml Route: IV; Rate: bolus; Site: right antecubital; kd3 13:30 Drug: morphine 4 mg Route: IVP; Site: right forearm; ke1 13:30 Drug: Phenergan (promethazine) 12.5 mg Route: IVP; Site: right forearm; ke1 13:39 Drug: NS 0.9% 1000 ml Route: IV; Rate: 125 ml/hr; Site: right forearm; ke1 14:31 Drug: morphine 4 mg Route: IVP; Site: right forearm; kd3 14:31 Drug: Zofran (Ondansetron) 4 mg Route: IVP; Site: right forearm; kd3 14:39 Drug: Flagyl (metroNIDAZOLE) 500 mg Volume: 100 ml; Route: IVPB; Rate: 200 ml/hr; kd3 Infused Over: 30 mins; Site: right forearm; 14:40 Drug: Cipro (ciprofloxacin) 400 mg Volume: 200 ml; Route: IVPB; Infused Over: 60 mins; kd3 Site: right forearm; 15:30 Drug: Dilaudid (HYDROmorphone) 1 mg Route: IVP; Site: right forearm; kd3 15:30 Drug: Phenergan (promethazine) 12.5 mg Route: IVP; Site: right forearm; kd3 Outcome: 14:13 Decision to Hospitalize by Provider. raul 04/25 12:28 Patient left the ED. cb5 Signatures: Dispatcher [employer] EDWV Loi Castle MD MD cha Rivera, Meenakshi mr Weinstein ELVIRA Meyer ph D, Jonathon, RN RN jd3 Doucette, Kyli, RN RN kd3 Sole Suárez RN RN cb5 Francisco Beyer RN RN ke1
--- NOTE | 2021-04-24 14:14 | EDPHYS ---
Physician Documentation [facility] Name: Maris Arias Age: 40 yrs Sex: Female : 1980 Arrival Date: 04/24/2021 Time: 11:33 Bed 13 Private MD: EFRA Physician Loi Castle HPI: 04/24 13:55 This 40 yrs old Female presents to ER via Ambulatory with complaints of raul Nausea, Diarrhea, Pain All Over. 13:55 The patient presents to the emergency department with nausea, abdominal pain, of the raul right upper quadrant, left upper quadrant, right lower quadrant and left lower quadrant. Onset: The symptoms/episode began/occurred 2 day(s) ago. Possible causes: unknown. The symptoms are aggravated by movement, The symptoms are alleviated by nothing. Associated signs and symptoms: The patient has no apparent associated signs or symptoms. Severity of symptoms: At their worst the symptoms were mild moderate in the emergency department the symptoms are unchanged. The patient has experienced a previous episode, last week. 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 - Social history:: Smoking status: Patient denies any tobacco usage or history of. ROS: 13:57 Constitutional: Negative for fever, chills, and weight loss, Eyes: Negative for injury, raul pain, redness, and discharge, ENT: Negative for injury, pain, and discharge, Neck: Negative for injury, pain, and swelling, Cardiovascular: Negative for chest pain, palpitations, and edema, Respiratory: Negative for shortness of breath, cough, wheezing, and pleuritic chest pain, Back: Negative for injury and pain, : Negative for injury, bleeding, discharge, and swelling, MS/Extremity: Negative for injury and deformity, Skin: Negative for injury, rash, and discoloration, Neuro: Negative for headache, weakness, numbness, tingling, and seizure. 13:57 Abdomen/GI: Positive for abdominal pain, nausea, diarrhea, of the right upper quadrant, left upper quadrant, right lower quadrant and left lower quadrant. Exam: 13:57 Constitutional: This is a well developed, well nourished patient who is awake, alert, raul and in no acute distress. Head/Face: Normocephalic, atraumatic. Eyes: Pupils equal round and reactive to light, extra-ocular motions intact. Lids and lashes normal. Conjunctiva and sclera are non-icteric and not injected. Cornea within normal limits. Periorbital areas with no swelling, redness, or edema. ENT: Nares patent. No nasal discharge, no septal abnormalities noted. Tympanic membranes are normal and external auditory canals are clear. Oropharynx with no redness, swelling, or masses, exudates, or evidence of obstruction, uvula midline. Mucous membranes moist. Neck: Trachea midline, no thyromegaly or masses palpated, and no cervical lymphadenopathy. Supple, full range of motion without nuchal rigidity, or vertebral point tenderness. No Meningismus. Chest/axilla: Normal chest wall appearance and motion. Nontender with no deformity. No lesions are appreciated. Cardiovascular: Regular rate and rhythm with a normal S1 and S2. No gallops, murmurs, or rubs. Normal PMI, no JVD. No pulse deficits. Respiratory: Lungs have equal breath sounds bilaterally, clear to auscultation and percussion. No rales, rhonchi or wheezes noted. No increased work of breathing, no retractions or nasal flaring. Back: No spinal tenderness. No costovertebral tenderness. Full range of motion. Pelvic Exam: Normal external genitalia. Speculum exam with closed cervical os, no discharge or bleeding noted. Bimanual exam with normal adnexa, no adnexal or cervical motion tenderness. Normal uterus. Skin: Warm, dry with normal turgor. Normal color with no rashes, no lesions, and no evidence of cellulitis. MS/ Extremity: Pulses equal, no cyanosis. Neurovascular intact. Full, normal range of motion. Neuro: Awake and alert, GCS 15, oriented to person, place, time, and situation. Cranial nerves II-XII grossly intact. Motor strength 5/5 in all extremities. Sensory grossly intact. Cerebellar exam normal. Normal gait. Psych: Awake, alert, with orientation to person, place and time. Behavior, mood, and affect are within normal limits. 13:57 Abdomen/GI: Inspection: distension, that is mild, Bowel sounds: normal, Palpation: mild abdominal tenderness, in all quadrants, Liver: no appreciated palpable abnormalities, Hernia: not appreciated. 13:57 Back: pain, is absent, ROM is normal, normal spinal alignment noted, CVA tenderness, is absent. 14:15 ECG was reviewed by the Attending Physician. [facility] Vital Signs: 11:44 BP 133 / 82; Pulse 101; Resp 18; Temp 98.2(TE); Pulse Ox 96% on R/A; Weight 90.72 kg; ph Height 5 ft. 2 in. (157.48 cm); 16:11 BP 118 / 73; Pulse 84; Resp 17; Temp 97.8; Pulse Ox 94% ; kd3 11:44 Body Mass Index 36.58 (90.72 kg, 157.48 cm) ph MDM: 12:01 Patient medically screened. raul 14:05 Differential diagnosis: Nonspecific abd pain, gastritis, viral gastroenteritis, raul gastroenteritis, diverticulitis, non-specific abd pain, pancreatitis, Peptic Ulcer Disease, Peritonitis, Pyelonephritis, Ureterolithiasis, urinary tract infection. Data reviewed: vital signs, nurses notes, lab test result(s), EKG, radiologic studies, CT scan, plain films. Data interpreted: engine monitor: rate is 101 beats/min, rhythm is regular, Pulse oximetry: is not applicable for this patient encounter. Interpretation:. Test interpretation: by ED physician or midlevel provider: ECG, plain radiologic studies. Counseling: I had a detailed discussion with the patient and/or guardian regarding: the historical points, exam findings, and any diagnostic results supporting the discharge/admit diagnosis. 04/24 12:08 Order name: Basic Metabolic Panel [facility] 04/24 12:08 Order name: CBC with Diff [facility] 04/24 12:08 Order name: LFT's [facility] 04/24 12:08 Order name: Magnesium; Complete Time: 14:07 [facility] 04/24 12:08 Order name: NT PRO-BNP; Complete Time: 14:07 [facility] 04/24 12:08 Order name: PT-INR; Complete Time: 14:07 [facility] 04/24 12:08 Order name: Troponin HS; Complete Time: 14:07 04/24 12:08 Order name: Lipase; Complete Time: 14:07 [facility] 04/24 12:08 Order name: Stool Culture [facility] 04/24 12:08 Order name: Fecal Leukocyte Stain [facility] 04/24 12:08 Order name: Rotavirus Antigen [facility] 04/24 12:08 Order name: CDIFF [facility] 04/24 12:08 Order name: Lactate; Complete Time: 14:07 [facility] 04/24 12:08 Order name: Urine Culture [facility] 04/24 12:08 Order name: XRAY Chest (1 view); Complete Time: 14:07 [facility] 04/24 12:08 Order name: CT Abd/Pelvis - IV Contrast Only; Complete Time: 14:07 [facility] 04/24 12:08 Order name: Blood Culture Adult (2) [facility] 04/24 12:09 Order name: Basic Metabolic Panel; Complete Time: 14:07 [facility] 04/24 12:09 Order name: CBC with Automated Diff [facility] 04/24 12:09 Order name: Liver (Hepatic) Function; Complete Time: 14:07 [facility] 04/24 14:07 Order name: Urine Dipstick-Ancillary; Complete Time: 14:07 [facility] 04/24 14:08 Order name: CBC Smear Scan [facility] 04/24 15:23 Order name: SARS-COV-2 RT PCR (Document "Date of Onset" if Symptomatic) 04/25 03:14 Order name: CBC with Automated Diff [facility] 04/25 03:25 Order name: Comprehensive Metabolic Panel [facility] 04/25 03:25 Order name: Magnesium [facility] 04/24 12:08 Order name: EKG; Complete Time: 12:09 [facility] 04/24 12:08 Order name: EKG - Nurse/Tech; Complete Time: 12:48 [facility] 04/24 12:08 Order name: IV Saline Lock; Complete Time: 13:03 [facility] 04/24 12:08 Order name: Labs collected and sent; Complete Time: 13:03 [facility] 04/24 12:08 Order name: O2 Per Protocol; Complete Time: 13:18 [facility] 04/24 12:08 Order name: O2 Sat Monitoring; Complete Time: 13:18 [facility] 04/24 12:08 Order name: Urine Dipstick-Ancillary (obtain specimen); Complete Time: 14:08 [facility] 04/24 15:55 Order name: CONS Physician Consult EDMS EC:15 Rate is 87 beats/min. Rhythm is regular. QRS [place] is Normal. [place] interval is normal. QRS raul interval is normal. QT interval is normal. No Q waves. T waves are Normal. No ST changes noted. Clinical impression: NSR w/ Non-specific ST/T Changes and No evidence of ischemia. Interpreted by me. Reviewed by me. Administered Medications: 13:01 Drug: morphine 4 mg Route: IVP; Site: right forearm; kd3 13:01 Drug: Zofran (Ondansetron) 4 mg Route: IVP; Site: right forearm; kd3 13:02 Drug: NS 0.9% 500 ml Route: IV; Rate: bolus; Site: right antecubital; kd3 13:30 Drug: morphine 4 mg Route: IVP; Site: right forearm; ke1 13:30 Drug: Phenergan (promethazine) 12.5 mg Route: IVP; Site: right forearm; ke1 13:39 Drug: NS 0.9% 1000 ml Route: IV; Rate: 125 ml/hr; Site: right forearm; ke1 14:31 Drug: morphine 4 mg Route: IVP; Site: right forearm; kd3 14:31 Drug: Zofran (Ondansetron) 4 mg Route: IVP; Site: right forearm; kd3 14:39 Drug: Flagyl (metroNIDAZOLE) 500 mg Volume: 100 ml; Route: IVPB; Rate: 200 ml/hr; kd3 Infused Over: 30 mins; Site: right forearm; 14:40 Drug: Cipro (ciprofloxacin) 400 mg Volume: 200 ml; Route: IVPB; Infused Over: 60 mins; kd3 Site: right forearm; 15:30 Drug: Dilaudid (HYDROmorphone) 1 mg Route: IVP; Site: right forearm; kd3 15:30 Drug: Phenergan (promethazine) 12.5 mg Route: IVP; Site: right forearm; kd3 Disposition Summary: 04/24/21 14:13 Hospitalization Ordered Hospitalization Status: Inpatient Admission raul Provider: Lawrence Nava cha Condition: Fair raul Problem: new raul Symptoms: have improved raul Bed/Room Type: Standard rual Location: Telemetry/MedSurg (Inpatient)(04/25/21 11:08) Room Assignment: 219(04/25/21 11:08) Diagnosis - Left sided colitis without complications raul - Other viral enteritis raul - Abdominal pain, Generalized - hx of NHL on Chemo raul - Enterocolitis due to Clostridium difficile - history of raul - Elevated white blood cell count raul Forms: - Medication Reconciliation Form raul - SBAR form raul Signatures: Dispatcher [employer] Rosemary Steward, Kaitlyn Godinez Corey, MD MD cha Williams, Irene, RN ELVIRA iw Paty Grover RN RN ss Betsy Weinstein RN RN Elly Albrecht RN RN kd3 Francisco Beyer RN RN ke1 Corrections: (The following items were deleted from the chart) 16:54 14:13 Telemetry/MedSurg (Inpatient) raul iw 16:54 14:13 raul iw 04/25 09:17 04/24 16:54 [facility] ER HOLD iw bd 04/25 09:17 02 16:54 ERHOLD- iw 04/25 09:45 09:17 Telemetry/MedSurg (Inpatient) bd ss 09:45 09:17 421 bd ss 11:08 09:45 [facility] ER HOLD ss ss 11:08 09:45 ERHOLD- ss ss
[2021-04-24] MEDS ORDERED: CIPROFLOXACIN 400mg IV 400 MG/200 ML BAG IV ONE (14:25)
[2021-04-24] MEDS ORDERED: METRONIDAZOLE 500mg IVPB 500 MG/100 ML BAG IV ONE (14:25)
[2021-04-24] MEDS ORDERED: HYDROMORPHONE HCL 1 MG/ML INJ ONE (15:22)
--- NOTE | 2021-04-24 16:14 | P.HP ---
Certification for Inpatient Patient admitted to: Inpatient With expected LOS: >2 Midnights Practitioner: I am a practitioner with admitting privileges, knowledge of patient current condition, hospital course, and medical plan of care. Services: Services provided to patient in accordance with Admission requirements found in Title 42 Section 412.3 of the Code of Federal Regulations Patient History Date of Service: 04/24/21 Reason for admission: colitis, c.diff history History of Present Illness: 40yo F, PMH: Non-Hodgkin's lymphoma on chemo, Crohn's disease, recurrent C. difficile (4 times) Presents to the ED due to 3 days of progressively worsening abdominal pain associated with decreased appetite and a change in her diarrhea. She has chronic diarrhea due to Crohn's, however has become more frothy and smelled much worse lately. She has not eaten much in the last 2 days. Denies fever. Last had chemo few days ago. Patient was discharged from the hospital approximately 2 weeks ago due to C. difficile infection. In the ED, she does not have a leukocytosis of 16,000, afebrile, CT abdomen/pelvis concerning for colitis. Reports her last Crohn's flare was 2 years ago. On Stelara Her last C. difficile infection occurred a few days after chemo, and the symptoms occurred after her second treatment of chemo as well. ED physician requests admission for further evaluation and management. Allergies No Known Allergies Allergy (Verified 04/04/21 23:48) Home Medications: Estradiol [Estrace] 0.5 mg PO BEDTIME 02/08/21 Fluoxetine HCl [Prozac] 40 mg PO BEDTIME 02/08/21 Ustekinumab [Stelara] 130 mg SQ ONCE 02/08/21 Gabapentin 300 mg PO BID 04/04/21 Cholestyramine/Asp [Questran Light*] 4 gm PO DAILY WITH BREAKFAST #30 packet 04/14/21 Diphenox/Atropine [Lomotil*] 1 tab PO QID PRN #30 tab 04/14/21 Hydrocodone/Acetaminophen [Hydrocodon-Acetaminophn 10-325] 1 each PO Q6HP PRN #30 tablet 04/14/21 Ondansetron [Zofran] 4 mg PO Q6H PRN #30 tab 04/14/21 - Past Medical/Surgical History Diabetic: No -: CROHNS -: DEPRESSION -: NHL -: TUBAL LIGATION -: HYSTERECTOMY -: Intestinal resection 2004 - Family History Mother -: Other (see notes) Notes: Crohns disease dad -: Cancer Notes: bladder cancer. - Social History Smoking Status: Never smoker Alcohol use: No CD- Drugs: No Caffeine use: No Place of Residence: Home Review of Systems 10-point ROS is otherwise unremarkable Physical Examination - Physical Exam General: Alert, Oriented x3, Mild distress (Uncomfortable appearing) HEENT: Other (Dry mucous membranes), Sclerae nonicteric Respiratory: Clear to auscultation bilaterally, Normal air movement Cardiovascular: No edema, Regular rate/rhythm Gastrointestinal: Soft and benign, Non-distended, Tenderness (Mild, diffuse) Musculoskeletal: No tenderness Integumentary: No significant lesion Neurological: Normal speech, Normal affect - Studies Laboratory Data (last 24 hrs) 04/24/21 12:53: PT 11.5, INR 1.00 04/24/21 12:53: WBC 16.30 H D, Hgb 10.9 L, Hct 31.4 L, Plt Count 216 04/24/21 12:53: Sodium 139, Potassium 3.6, BUN 8, Creatinine 0.47 L, Glucose 93, Magnesium 2.1, Total Bilirubin 0.4, AST 10 L, ALT 19, Alkaline Phosphatase 95, Lipase 108 Assessment and Plan - Advance Directives Does patient have a Living Will: No Does patient have a Durable POA for Healthcare: No Physician Review Additional Text: Problem list Colitis, suspect C. difficile C. difficile colitis, recurrent Crohn's disease Non-Hodgkin's lymphoma Most likely recurrent C. difficile infection, with change in her chronic diarrhea, more smelly, leukocytosis Less likely, but possible would be a Crohn's flare Chemotherapy likely playing a role in his C. difficile recurrent infections Infectious disease consulted GI consulted, recommended p.o. vancomycin 250 every 6 hours for now will likely need fecal transplant in near future Patient with nausea and abdominal discomfort, okay for some ice chips through the night, advance as tolerated tomorrow IV fluids Pain medication as needed Does not appear to have sepsis Stool studies ordered in the ED Code: full Dispo: hospitalization > 2 days Time Spent Managing Pts Care (In Minutes): 60
[2021-04-24] MEDS ORDERED: ACETAMINOPHEN 500 MG TAB PO PRN (16:46)
[2021-04-24] MEDS: VANCOMYCIN ORAL SOLN 250 MG/5 ML OSYR PO SCH (18:00)
[2021-04-24] MEDS: ONDANSETRON 4 MG/2 ML VIAL IV PRN (19:18)
[2021-04-24] MEDS: MORPHINE 2 MG/ML SYR IV PRN (22:07)
[2021-04-24] MEDS ORDERED: MORPHINE 2 MG/ML SYR ONE (22:12)
[2021-04-24] MEDS: NA CHLORIDE 0.9% 1,000 ML IV SCH (22:50)
[2021-04-25] MEDS: NA CHLORIDE 0.9% 1,000 ML IV SCH ×3 (00:46→14:01)
[2021-04-25 03:11] LABS: Absolute Lymphocytes (CBC) 0.6 K/uL (0.7-4.9); Hematocrit 27.8 % (36.0-45.0); Lymphocytes % 8.6 % (15.3-44.8); MPV 7.7 fL (7.6-11.3); RBC Red Blood Cell Count 3.27 M/uL (3.86-4.86)
[2021-04-25 03:25] LABS: ALT/SGPT 74 U/L (12-78); AST/SGOT 49 U/L (15-37); Albumin 2.6 g/dL (3.4-5.0); Alkaline Phosphatase 99 U/L (45-117); BUN Blood Urea Nitrogen 8 mg/dL (7-18); Bicarbonate 29 mmol/L (21-32); Bilirubin Total 0.5 mg/dL (0.2-1.0); Glucose Level 109 mg/dL (74-106); Magnesium 2.1 mg/dL (1.8-2.4); Potassium 3.3 mmol/L (3.5-5.1); Protein, Total 5.7 g/dL (6.4-8.2); Sodium Level 141 mmol/L (136-145)
[2021-04-25] MEDS ORDERED: KCL 20 MEQ/100 mL IVPB 20 MEQ/100 ML BAG IV ONE (04:00)
[2021-04-25] MEDS ORDERED: MORPHINE 2 MG/ML SYR ONE ×2 (04:05→08:29)
[2021-04-25] MEDS ORDERED: ONDANSETRON 4 MG/2 ML VIAL ONE ×2 (04:05→08:29)
[2021-04-25] MEDS ORDERED: KCL 20 MEQ/100 mL IVPB 100 ML IV ONE (04:06)
[2021-04-25] MEDS: MORPHINE 2 MG/ML SYR IV PRN ×2 (04:15→09:33)
[2021-04-25] MEDS: ONDANSETRON 4 MG/2 ML VIAL IV PRN ×3 (04:15→23:12)
[2021-04-25] MEDS ORDERED: FENTANYL CITR 100 MCG/2 ML ONE (05:01)
[2021-04-25] MEDS ORDERED: FENTANYL CITR 100 MCG/2 ML IV ONE (05:12)
[2021-04-25] MEDS: VANCOMYCIN ORAL SOLN 250 MG/5 ML OSYR PO SCH ×4 (06:00→17:11)
[2021-04-25] MEDS ORDERED: NA CHLORIDE 0.9% 1,000 ML ONE (06:58)
--- NOTE | 2021-04-25 07:24 | EKG ---
Test Date: 2021-04-24 Test Time: 12:27:35 Desk Attendant: STACY MEASUREMENT RESULTS: Intervals: Rate: 87 MT: 156 QRSD: 76 QT: 388 QTc: 466 Agness: P: 22 MT: 156 QRS: 27 T: -2 INTERPRETIVE STATEMENTS: Normal sinus rhythm Normal ECG Compared to ECG 04/09/2021 10:34:51 No significant changes Electronically Signed On 04-25-21 07:22:42 [employer]OTECTIVE SERVICES CASE WORKER by Asa Mistry
[2021-04-25] MEDS ORDERED: ENOXAPARIN 40 MG/0.4 ML SQ ONE (08:30)
[2021-04-25] MEDS: ENOXAPARIN 40 MG/0.4 ML SQ SCH (09:00)
[2021-04-25 13:11] VITALS: BMI 36.6
[2021-04-25] MEDS ORDERED: PNEUMOCOCCAL VACCINE 0.5 ML IMVAC ONE (14:00)
--- NOTE | 2021-04-25 14:48 | P.PN ---
Subjective Date of Service: 04/25/21 Chief Complaint: colitis, c.diff history Patient reports about 5 diarrheal bowel movement since last night. She states she feels better since being here. She is complaining of intermittent abdominal pain. She is also asking for medications for nausea. Currently on clear liquid diet. Physical Examination - Vital Signs Temperature: 97.5 F Blood Pressure: 111/54 Pulse: 82 Respirations: 16 Pulse Ox (%): 96 Assessment And Plan - Plan Physical Exam General: Alert, Oriented x3, NAD HEENT: Moist oral mucosa, sclerae nonicteric Respiratory: Clear to auscultation bilaterally, Normal air movement Cardiovascular: No edema, Regular rate/rhythm Gastrointestinal: Soft and benign, Non-distended, mild diffuse tenderness. Musculoskeletal: No tenderness, no pedal edema. Integumentary: No significant lesion Neurological: Normal speech, Normal affect. Problem list Colitis, suspect C. difficile C. difficile colitis, recurrent Crohn's disease Non-Hodgkin's lymphoma Most likely recurrent C. difficile infection, with change in her chronic diarr hea. Leukocytosis could be secondary to Neulasta injection versus C. difficile. Crohn's disease may be contributing to the diarrhea. C. difficile recurrent infections related to chemo cycles. Case discussed with oncology-Dr. Reyna who recommend chronic suppressive therapy for C. difficile while on chemo Infectious disease consulted GI consulted, recommended p.o. vancomycin 250 every 6 hours for now Patient with nausea and abdominal discomfort. Start liquid diet and advance as tolerated. Supportive measures with antiemetics, IV opioid as needed for pain. IV fluids Follow stool studies.
[2021-04-25] MEDS: PROMETHAZINE INJ 25 MG/ML AMP IV PRN (15:20)
[2021-04-25] MEDS: HYDROCODONE/APAP 5/325 MG TAB PO PRN (15:20)
[2021-04-25 16:41] LABS: Magnesium 2.2 mg/dL (1.8-2.4); Phosphorus 2.5 mg/dL (2.5-4.9)
[2021-04-25] MEDS: MORPHINE 4 MG/ML SYR IV PRN ×2 (16:45→23:11)
[2021-04-26] MEDS: NA CHLORIDE 0.9% 1,000 ML IV SCH ×4 (00:46→23:28)
[2021-04-26] MEDS: MORPHINE 4 MG/ML SYR IV PRN ×4 (05:31→23:29)
[2021-04-26] MEDS: ONDANSETRON 4 MG/2 ML VIAL IV PRN ×4 (05:31→23:29)
[2021-04-26] MEDS: VANCOMYCIN ORAL SOLN 250 MG/5 ML OSYR PO SCH ×5 (05:32→23:28)
[2021-04-26 05:43] LABS: Absolute Lymphocytes (CBC) 0.3 K/uL (0.7-4.9); Hematocrit 25.8 % (36.0-45.0); Lymphocytes % 10.9 % (15.3-44.8); MPV 7.5 fL (7.6-11.3); RBC Red Blood Cell Count 3.05 M/uL (3.86-4.86)
[2021-04-26 05:57] LABS: BUN Blood Urea Nitrogen 3 mg/dL (7-18); Bicarbonate 27 mmol/L (21-32); Glucose Level 117 mg/dL (74-106); Potassium 3.4 mmol/L (3.5-5.1); Sodium Level 140 mmol/L (136-145)
[2021-04-26 06:51] LABS: White Blood Cell Scan OK (OK)
[2021-04-26 06:52] LABS: Blood Morphology Comment NOT SEEN (NOT SEEN); Platelet Estimate DECR
[2021-04-26] MEDS ORDERED: POTASSIUM CL SA 10 MEQ TAB PO ONE (09:00)
[2021-04-26] MEDS: PROMETHAZINE INJ 25 MG/ML AMP IV PRN (09:15)
[2021-04-26] MEDS: ENOXAPARIN 40 MG/0.4 ML SQ SCH (09:17)
[2021-04-26 14:06] LABS: C.diff Antigen/Toxin Ag neg : Tox neg (NEG : NEG)
--- NOTE | 2021-04-26 14:28 | P.PN ---
Subjective Date of Service: 04/26/21 Chief Complaint: colitis, c.diff history Patient reports nausea. She has been tolerating only clear liquids. She is complaining of intermittent abdominal pain. Physical Examination - Vital Signs Temperature: 97.3 F Blood Pressure: 101/50 Pulse: 90 Respirations: 16 Pulse Ox (%): 96 - Studies Microbiology Data (last 24 hrs): 04/24/21 14:04 Clean Catch Urine [place] Count - Final No growth. 04/24/21 14:04 Clean Catch Urine - Final No growth. Assessment And Plan - Plan Physical Exam General: Alert, Oriented x3, NAD HEENT: Moist oral mucosa, sclerae nonicteric Respiratory: Clear to auscultation bilaterally, Normal air movement Cardiovascular: No edema, Regular rate/rhythm Gastrointestinal: Soft and benign, Non-distended, mild diffuse tenderness. Musculoskeletal: No tenderness, no pedal edema. Integumentary: No significant lesion Problem list Colitis, suspect C. difficile C. difficile colitis, recurrent Crohn's disease Non-Hodgkin's lymphoma C. difficile antigen and toxins are negative. Patient symptoms could be related to Crohn's disease flare or may be chemotherapy-induced History of C. difficile recurrent infections related to chemo cycles. Patient may still benefit from chronic suppression of C. difficile while on chemotherapy. Infectious disease to see patient. Continue p.o. vancomycin 250 every 6 hours for now Patient with nausea and abdominal discomfort. Advance diet as tolerated. Supportive measures with antiemetics, IV opioid as needed for pain. IV fluids Stool culture is pending. Mild fecal leukocyte stain. Rotavirus is negative.
[2021-04-26] MEDS: ENSURE HIGH PROTEIN 237 ML CAN PO SCH (20:17)
[2021-04-27 04:39] LABS: Absolute Lymphocytes (CBC) 0.3 K/uL (0.7-4.9); Hematocrit 25.3 % (36.0-45.0); Lymphocytes % 25.9 % (15.3-44.8); MPV 7.1 fL (7.6-11.3); RBC Red Blood Cell Count 3.04 M/uL (3.86-4.86)
[2021-04-27 04:58] LABS: BUN Blood Urea Nitrogen < 3 mg/dL (7-18); Bicarbonate 27 mmol/L (21-32); Glucose Level 132 mg/dL (74-106); Potassium 3.4 mmol/L (3.5-5.1); Sodium Level 139 mmol/L (136-145)
[2021-04-27] MEDS ORDERED: POTASSIUM CL SA 10 MEQ TAB PO ONE (05:14)
[2021-04-27] MEDS: MORPHINE 4 MG/ML SYR IV PRN ×4 (05:31→23:34)
[2021-04-27] MEDS: VANCOMYCIN ORAL SOLN 250 MG/5 ML OSYR PO SCH ×4 (05:31→23:34)
[2021-04-27] MEDS: ONDANSETRON 4 MG/2 ML VIAL IV PRN ×4 (05:31→23:34)
[2021-04-27] MEDS: NA CHLORIDE 0.9% 1,000 ML IV SCH ×3 (05:32→23:35)
[2021-04-27] MEDS: ENSURE HIGH PROTEIN 237 ML CAN PO SCH ×2 (09:00→20:18)
[2021-04-27] MEDS: ENOXAPARIN 40 MG/0.4 ML SQ SCH (09:08)
[2021-04-27] MEDS: PROMETHAZINE INJ 25 MG/ML AMP IV PRN (09:52)
--- NOTE | 2021-04-27 11:52 | P.CNS ---
Date of Consult: 04/27/21 Chief Complaint: colitis, c.diff history History of Present Illness: The patient is a 40-year-old female with a past medical history of Crohn's disease, non-Hodgkin's lymphoma currently receiving chemotherapy, recurrent C. diff (4 times) who presented to the emergency department secondary to progressively worsening abdominal pain, cramps, and change in her diarrhea. Patient has chronic diarrhea secondary to Crohn's disease however states that over the past few days her diarrhea has had increased mucus, foaming, and increased foul odor. Of note patient was recently hospitalized at this facility from 04/15/10 and treated for C. difficile with 10 days of oral fidaxomicin. Patient states that when she has her rounds of chemotherapy her diarrhea increases. C. difficile antigen and toxin obtained on this visit are negative showing no current C. difficile infection or colonization. Patient has been empirically placed on oral vancomycin, recommend against this as there is no evidence-based studies that show efficacy for prophylactic C. difficile treatment. Patient currently reports diarrhea, abdominal pain/cramping. She denies vomiting, shortness of breath, or chest pain.` Allergies No Known Allergies Allergy (Verified 04/04/21 23:48) Home Medications: Estradiol [Estrace] 0.5 mg PO BEDTIME 02/08/21 Fluoxetine HCl [Prozac] 40 mg PO BEDTIME 02/08/21 Ustekinumab [Stelara] 130 mg SQ ONCE 02/08/21 Gabapentin 300 mg PO BID 04/04/21 Cholestyramine/Asp [Questran Light*] 4 gm PO DAILY WITH BREAKFAST #30 packet 04/14/21 Diphenox/Atropine [Lomotil*] 1 tab PO QID PRN #30 tab 04/14/21 Hydrocodone/Acetaminophen [Hydrocodon-Acetaminophn 10-325] 1 each PO Q6HP PRN #30 tablet 04/14/21 Ondansetron [Zofran] 4 mg PO Q6H PRN #30 tab 04/14/21 - Past Medical/Surgical History Diabetic: No -: CROHNS -: DEPRESSION -: NHL -: TUBAL LIGATION -: HYSTERECTOMY -: Intestinal resection 2004 - Family History Mother Medical History: Other (see notes) Notes: Crohns disease dad Medical History: Cancer Notes: bladder cancer. - Social History Alcohol use: No CD- Drugs: No Caffeine use: Yes Place of Residence: Home Review of Systems 10-point ROS is otherwise unremarkable Physical Examination Temp Pulse Resp BP Pulse Ox 97.1 F 89 16 102/51 L 97 04/27/21 08:00 04/27/21 08:00 04/27/21 08:00 04/27/21 08:00 04/27/21 08:00 General: Alert, In no apparent distress, Obese HEENT: Atraumatic, Normocephalic Neck: Supple, 2+ carotid pulse no bruit Respiratory: Clear to auscultation bilaterally, Normal air movement Cardiovascular: No edema, Regular rate/rhythm, Normal S1 S2 Capillary refill: <2 Seconds Gastrointestinal: Hyperactive, Tenderness (diffuse) Musculoskeletal: No clubbing, No swelling, No contractures Conclusions/Impression: Assessment/plan Recurrent C. difficile Patient has a history of recurrent C. difficile, x4. However in the past patient was never treated with the correct antibiotic duration, was treated with oral vancomycin for 7 days instead of the full 10-day regimen. Her last hospital stay at this facility on 04/15/10 she was correctly treated with 10 full days of oral fidaxomicin. C. difficile antigen and toxin obtained on this visit was negative showing no current C. difficile infection or colonization. Recommend discontinuing oral vancomycin. No treatment for C. difficile needed at this time. Crohn's Non-Hodgkin's lymphoma Pancytopenia -Medical management per primary team Plan of care discussed with Dr. Navarro Thank for consultation
--- NOTE | 2021-04-27 14:21 | P.PN ---
Subjective Date of Service: 04/27/21 Chief Complaint: colitis, c.diff history Patient reports intermittent nausea Currently on currently on full liquid diet. She stated diarrhea frequency is better, about 4-5 times over the past 24 hours. Physical Examination - Vital Signs Temperature: 97.4 F Blood Pressure: 110/56 Pulse: 89 Respirations: 14 Pulse Ox (%): 97 Assessment And Plan - Plan Physical Exam General: Alert, Oriented x3, NAD HEENT: Moist oral mucosa, sclerae nonicteric Respiratory: Clear to auscultation bilaterally, Normal air movement Cardiovascular: No edema, Regular rate/rhythm Gastrointestinal: Soft and benign, Non-distended, mild diffuse tenderness. Musculoskeletal: No tenderness, no pedal edema. Integumentary: No significant lesion Problem list Colitis, suspect C. difficile C. difficile colitis, recurrent Crohn's disease Non-Hodgkin's lymphoma C. difficile antigen and toxins are negative. Patient symptoms could be related to Crohn's disease flare or may be chemotherapy-induced History of C. difficile recurrent infections related to chemo cycles. Patient may still benefit from chronic suppression of C. difficile while on chemotherapy pending ID recommendation Patient with intermittent nausea and abdominal discomfort. This could be related to chemo. Advance diet as tolerated. Supportive measures with antiemetics, IV opioid as needed for pain. IV fluids Mild fecal leukocyte stain. Rotavirus is negative.
[2021-04-28] MEDS: NA CHLORIDE 0.9% 1,000 ML IV SCH (05:23)
[2021-04-28] MEDS: VANCOMYCIN ORAL SOLN 250 MG/5 ML OSYR PO SCH (05:23)
[2021-04-28] MEDS: ONDANSETRON 4 MG/2 ML VIAL IV PRN (05:24)
[2021-04-28] MEDS: MORPHINE 4 MG/ML SYR IV PRN (05:24)
[2021-04-28 05:44] LABS: Absolute Lymphocytes (CBC) 0.5 K/uL (0.7-4.9); Lymphocytes % 44.9 % (15.3-44.8); MPV 7.4 fL (7.6-11.3); RBC Red Blood Cell Count 3.02 M/uL (3.86-4.86)
[2021-04-28 06:05] LABS: ALT/SGPT 51 U/L (12-78); AST/SGOT 15 U/L (15-37); Albumin 2.8 g/dL (3.4-5.0); Alkaline Phosphatase 131 U/L (45-117); BUN Blood Urea Nitrogen 4 mg/dL (7-18); Bicarbonate 26 mmol/L (21-32); Bilirubin Total 0.4 mg/dL (0.2-1.0); Glucose Level 95 mg/dL (74-106); Protein, Total 6.3 g/dL (6.4-8.2); Sodium Level 138 mmol/L (136-145)
[2021-04-28] MEDS: HYDROCODONE/APAP 5/325 MG TAB PO PRN (06:24)
[2021-04-28 08:11] VITALS: BP 111/58; TEMP 97
[2021-04-28] MEDS: ENSURE HIGH PROTEIN 237 ML CAN PO SCH (08:51)
[2021-04-28] MEDS: ENOXAPARIN 40 MG/0.4 ML SQ SCH (08:52)
--- NOTE | 2021-04-28 09:13 | P.DS ---
Admission Date: 04/24/21 Discharge Date: 04/28/21 Disposition: ROUTINE DISCHARGE Discharge Condition: FAIR Reason for Admission: colitis, c.diff history Brief History of Present Illness: 40yo F, PMH: Non-Hodgkin's lymphoma on chemo, Crohn's disease, recurrent C. difficile (4 times) Presents to the ED due to 3 days of progressively worsening abdominal pain associated with decreased appetite and increase in her diarrhea. 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 Last had chemo few days prior. Patient was discharged from the hospital approximately 2 weeks ago due to C. difficile infection. She completed 10 days of Dificid per infectious disease recommendation. In the ED, she does have a leukocytosis of 16,000, afebrile, CT abdomen/pelvis concerning for colitis. Reports her last Crohn's flare was 2 years ago. On [facility] Her last C. difficile infection occurred a few days after chemo, and the symptoms occurred after her second treatment of chemo as well. Patient was hospitalized for further management. Hospital Course: Diagnosis Colitis, suspect C. difficile C. difficile colitis, recurrent Crohn's disease Non-Hodgkin's lymphoma Patient admitted to the medical floor and started on oral vancomycin for possible C. difficile. Also hydrated aggressively with IV fluid C. difficile antigen and toxins are negative. Patient symptoms could be related to Crohn's disease flare or may be chemotherapy-induced History of C. difficile recurrent infections related to chemo cycles. Patient seen by ID who recommended against chronic C. difficile suppressive therapy despite recurrent C. difficile colitis with her chemotherapy. Suggested treating C. difficile as it comes. Patient gradually tolerated diet and she was advanced to solid diet which she tolerated. Diarrhea frequency has improved, no vomiting. Patient has clinically improved and deemed stable for discharge. Vital Signs/Physical Exam: Temp Pulse Resp BP Pulse Ox 97.0 F 77 18 111/58 L 97 04/28/21 08:00 04/28/21 08:00 04/28/21 08:00 04/28/21 08:00 04/28/21 08:00 General: Alert, In no apparent distress, Oriented x3 HEENT: Mucous membr. moist/pink Neck: JVD not distended Respiratory: Clear to auscultation bilaterally, Normal air movement Cardiovascular: Regular rate/rhythm, Normal S1 S2 Gastrointestinal: Normal bowel sounds, Soft and benign, Non-distended, No tenderness Musculoskeletal: No swelling Integumentary: No rashes, No cyanosis Neurological: Normal strength at 5/5 x4 extr Laboratory Data at Discharge: WBC 1.10 K/uL (4.3-10.9) L* D 04/28/21 05:03 Hgb 8.8 g/dL (12.0-15.0) L 04/28/21 05:03 Hct 25.0 % (36.0-45.0) L 04/28/21 05:03 Plt Count 91 K/uL (152-406) L* 04/28/21 05:03 PT 11.5 SECONDS (9.5-12.5) 04/24/21 12:53 INR 1.00 04/24/21 12:53 Sodium 138 mmol/L (136-145) 04/28/21 05:03 Potassium 4.0 mmol/L (3.5-5.1) 04/28/21 05:03 BUN 4 mg/dL (7-18) L 04/28/21 05:03 Creatinine 0.49 mg/dL (0.55-1.3) L 04/28/21 05:03 Glucose 95 mg/dL (74-106) 04/28/21 05:03 Phosphorus 2.5 mg/dL (2.5-4.9) 04/25/21 16:14 Magnesium 2.2 mg/dL (1.8-2.4) 04/25/21 16:14 Total Bilirubin 0.4 mg/dL (0.2-1.0) 04/28/21 05:03 AST 15 U/L (15-37) 04/28/21 05:03 ALT 51 U/L (12-78) 04/28/21 05:03 Alkaline Phosphatase 131 U/L (45-117) H 04/28/21 05:03 Lipase 108 U/L (73-393) 04/24/21 12:53 Home Medications: Estradiol [Estrace] 0.5 mg PO BEDTIME 02/08/21 Fluoxetine HCl [Prozac] 40 mg PO BEDTIME 02/08/21 Ustekinumab [Stelara] 130 mg SQ ONCE 02/08/21 Gabapentin 300 mg PO BID 04/04/21 Cholestyramine/Asp [Questran Light*] 4 gm PO DAILY WITH BREAKFAST #30 packet 04/14/21 Diphenox/Atropine [Lomotil*] 1 tab PO QID PRN #30 tab 04/14/21 Ondansetron [Zofran (Odt)*] 4 mg PO Q6H PRN #30 tab 04/14/21 Ensure High Protein 237 ml PO BID #60 can 04/28/21 Hydrocodone 5/APAP 325 [[place]ams 5/325*] 1 tab PO Q6H PRN #20 tab 04/28/21 New Medications: Ensure High Protein 237 ml PO BID #60 can Hydrocodone 5/APAP 325 [[place]ams 5/325*] 1 tab PO Q6H PRN #20 tab PRN Reason: Pain Scale 5-7 (Moderate) Diet: Regular Activity: Ad candis Followup: Thien Garcia MD [ACTIVE - CAN ADMIT] - 1-2 Weeks (call to schedule an appointment ) Unknown,U [Primary Care Provider] - 1-2 Weeks Time spent managing pt's care (in minutes): 34
[2021-04-28 10:23] VITALS: O2SAT 96
== END 2021-04-28 10:50 | disposition home or self-care (01) | DRG 386 ==
LOC: ER 11:29 → ERHOLD 15:54 → 2ND 04-25 12:25
PROVIDERS: ADMIT Hospitalist; ATTEND Internal Medicine
DX: K50.90 Crohn's disease, unspecified, without complications (principal); C85.90 Non-Hodgkin lymphoma, unspecified, unspecified site; K52.1 Toxic gastroenteritis and colitis; D61.818 Other pancytopenia; T45.1X5A Adverse effect of antineoplastic and immunosuppressive drugs, initial encounter; Z86.19 Personal history of other infectious and parasitic diseases; Z20.822 Contact with and (suspected) exposure to COVID-19
CPT/HCPCS: 36415; 71045; 74177; 80048; 80053; 80076; 81003; 83605; 83690; 83735; 83880; 84100; 84132; 84484; 85025; 85610; 87040; 87045; 87046; 87086; 87088; 87324; 87425; 87449; 89055; 93005; 96374; 96375; 99284; J0744; J1170; J1650; J2270; J2405; J2550; J3010; J3480; J7030; J7040; Q9967; U0003

== ENCOUNTER 2021-04-29 18:30 | Emergency (ER) | payer BC ==
--- OUTSIDE RECORDS SUMMARY | 2021-04-29 18:33 | XMS REPORT | Clinical Summary ---
:1980 Author Organization [facility] MD [facility] Address [facility] [place] [address] Care Team Providers Name Role Phone Juwan Guerrero MD Primary Care Provider Allergies Not on File Medications Not on file Active Problems Not on file Encounters Date Type Specialty Care Team Description 03/13/2021 Lab Requisition [facility] MD Witson, Anne S., MD 02/28/2021 Ancillary Procedure Radiology Juwan Guerrero M D Cancer 02/20/2021 Travel after 04/29/2020 Social History Tobacco Use Types Packs/Day Years Used Date Never Assessed Sex Assigned at Date Recorded Female 02/20/2021 6:08 PM [employer] Job Start Date Occupation Industry Not on [...] 9:06 Cancer Res ults for this AM [employer] procedure are i n the results section. after 04/29/2020 Results Pathology Outside Interpretation (02/13/2021) Materials Accession#, Stained, Block, Unstained Collected Receiv ed [facility] Received A. [id number], 24 SS, 5 BLOCKS, 0 USS 02/13/2021 022 Diagnosis Lymph node (left upper neck), excisional biopsy: [facility] Electronically signed by Sivan alcantar [...] but there are also follicular areas (20-30% [facility] ). Both the diffuse and [...] Note: H&E Disclaimer "Some tests reported here [facility] may have been developed and performance characteristics determined by [facility]. These tests have not been specifically cleared or approved by the U.S. Food and Drug Administration. If applicable, controls were reviewed and showed appropriate reactivity." Specimen Tissue Performing Organization Address City/State/ZIP Code Phon e Number [facility] [place] [address] [address] Sft Tiss Neck (01/30/2021 9:06 AM [employer]) Specimen Narrative Systemgenerated, Documentation - 021 9:06 AM [employer] Study acquired at another institution. For comparison only. No MD Tin originated interpretation requested or a vailable. after 04/29/2020 Insurance Payer Benefit Plan / Subscriber ID Effective Dates Phone Addre ss Type Group [employer] [employer] PPO POS [id number] 2020-Present [address] [place] [address] Care Teams Block Hacker Relationship Specialty Start Date End Date Juwan Guerrero MD PCP - General Lymphoma and Myeloma 02/21/21 [address] [place] [address]
--- OUTSIDE RECORDS SUMMARY | 2021-04-29 18:35 | XMS REPORT | Continuity of Care Document ---
:1980 Author Organization [facility] t Address [address] [place] [address] Care Team Providers Name Role Phone [phone] Primary Care Physician Unavailable SYSTEM, NOT IN Attending Clinician Unavailable HARLAN Attending Clinician Unavailable PATRICIA Attending Clinician Unavailable Marc Hill MD Attending Clinician Jose Alfredo BRYAN S. Attending Clinician Ricki Ardon MD Attending Clinician Ricki ARDON Attending Clinician Unavailable MARICHUYONJEANNIE Attending Clinician Unavailable AGA, W Attending Clinician Unavailable Mariam LEE Attending Clinician Unavailable Mariam Lee MD Attending Clinician LAB90 Attending Clinician Unavailable Harlan TIMBER POISONER-C Attending Clinician Job FELIX, T Attending Clinician Unavailable Darien TIMBER POISONER Attending Clinician Abigail TIMBER POISONER Attending Clinician ABIGAIL Attending Clinician Unavailable Doctor [...] Date Expiration Date S rahul [employer] [place] - [id number] 2016 OUT OF STATE 00:00:00 BCBS 2 [id number] 2020 00:00:00 BLUE CROSS BLUE [id number] 2020 MD Yan molina [place] P[place] 00:00:00 [id number] 03/2020-[id number], [place] [id number] Problems Condition Condition Condition Status Onset Resolution [...] abdominal 1-03 ity of pain pain 00:00: [address] Branch Chills Chills Disease Active 2018-03 [...] of cholelithi cholelithi 00:00: g of this [place] asis asis 00 note Medical might be Branch different from the original. Added automatic ally from request for surgery [id number] Abdominal Abdominal Disease Active Uni vers pain pain 6-28 ity of 00:00: [place] 00 Medical Branch Crohn Crohn Disease Active Univers disease disease 5-04 ity of 00:00: [place] 00 Medical Branch Generalize Generalize Disease Active [...] (BMI 2-12 ity of 30-39.9) 30-39.9) 00:00: [place] 00 Medical Branch Morbid Morbid Disease Active [...] Active Univers ALLERGIE Class ity of S [facility] NO KNOWN Allergy Active [facility] Social History Social Habit Start Date Stop Date Quantity Comments Source History SDOH Karolina polanco Alcohol Frequency History SDOH Karolina polanco Alcohol Std Drinks History SDOH Karolina polanco Alcohol Binge History of Karolina Galicia tobacco use Exposure to Yes University [facility]-CoV-2 [place] Medical (event) Branch Alcohol intake 2021-01-25 2021-01-25 Current drinker Laura Galicia 00:00:00 00:00:00 of alcohol (finding) Alcohol Comment 2021-01-25 2021-01-25 social Karolina ybold 00:00:00 00:00:00 Tobacco Comment 2021-01-25 2021-01-25 vape Karolina Se ybold 00:00:00 00:00:00 Tobacco use and 2021-01-18 2021-01-18 Smokeless tobacco Ke lsjarrod Seybold exposure 00:00:00 00:00:00 non-user History SDAZ 2018-12-03 2018-12-03 5 University o f Financial 00:00:00 00:00:00 [place] [facility] History SDAZ Food 2018-12-03 2018-12-03 1 Univers ity of Worry 00:00:00 00:00:00 [place] [facility] History SDAZ Food 2018-12-03 2018-12-03 1 Univers ity of Scarcity 00:00:00 00:00:00 [place] [facility] History SDAZ 2018-12-03 2018-12-03 2 University o f Transport Med 00:00:00 00:00:00 [place] Medic al [facility] History SDAZ 2018-12-03 2018-12-03 2 University o f Transport Non-Med 00:00:00 00:00:00 [place] M edical [facility] History SDAZ 2018-12-02 2018-12-02 14 University o f Education 00:00:00 00:00:00 [facility] Sex Assigned At [birth year] F MD Christiansen on 00:00:00 00:00:00 Smoking Status Start Date Stop Date Source Smokes tobacco daily 2021-01-18 00:00:00 Karolina Seybold Never smoker [facility] Current some day smoker 2019-01-05 00:00:00 [facility] Medications Ordered Filled Start Stop Current [...] Solution 33 Prefilled Syringe Estrogens 2020-03 Yes [id number] Take one Karolina Conjugated 1-24 tablet Seybold (Premarin) 00:00: daily 0.3 MG oral 00 Tablet Ustekinumab 2020-03 Yes Inject Courtney ey 45 MG/0.5ML 1-17 into the Seyb old subcutaneou 10:59: skin s Solution 00 Prefilled Syringe Ustekinumab 2020-03 Yes Inject Courtney ey (STELARA 1-17 into the Seybold SC) 10:57: skin Every 52 8 Weeks hydrOXYzine 2020-03 Yes [id number] 10mg Q.[id number] Take 1 Karolina HCl 10 MG 1-17 [id number] tablet (10 Seybold oral Tablet 00:00: 3D mg total) 00 by mouth 3 times daily as needed for itching or anxiety Fluoxetine 2020-03 Yes [id number] 40mg Take 1 K elsey HCl 40 MG 1-17 capsule Seybold oral 00:00: (40 mg Capsule 00 total) by mouth daily hydrOXYzine 2020-03 Yes [id number] 10mg Q.[id number] Take 1 Karolina HCl 10 MG 1-17 [id number] tablet (10 Seybold oral Tablet 00:00: 3D mg total) 00 by mouth 3 times daily as needed for itching or anxiety Fluoxetine 2020-03 Yes [id number] 40mg Take 1 K elsey HCl 40 MG 1-17 capsule Seybold oral 00:00: (40 mg Capsule 00 total) by mouth daily HYDROcodone 2020- No 1{tbl} 1 tablet, Univers -acetaminop 10-02 Oral, ity of hen (NORCO 07:45: 06:47 ONCE, 1 Gaurang as 5) 5-325 mg 00 :00 dose, Sun Med ical tablet 1 10/02/20 at [place] tablet 0245, LEWIS dicyclomine 2020- No 20mg [...] Sun Medica l NaCl 0.9% 10/02/20 at [facility] h (NS) 50 mL 0145, 50 piggyback mL ondansetron 2020- No 4mg 4 mg, Slow Univers (ZOFRAN 10-02 IV Push, ity of (PF)) 05:15: 04:37 ONCE, 1 [place] injection 4 00 :00 dose, Sun Med ical mg 10/02/20 at Branch 0015, LEWIS Ustekinumab Yes inject Univ ers 45 mg/0.5 8-01 under the ity o f mL SC 04:11: skin. [place] injection [address] [place] [address] Ustekinumab Yes inject Univ ers 45 mg/0.5 8-01 under the ity o f mL SC 04:11: skin. [place] injection [address] [place] [address] Ustekinumab Yes inject Univ ers 45 mg/0.5 8-01 under the ity o f mL SC 04:11: skin. [place] injection [address] [place] [address] Ustekinumab Yes inject Univ ers 45 mg/0.5 8-01 under the ity o f mL SC 04:11: skin. [place] injection [address] [place] [address] Ustekinumab Yes inject Univ ers 45 mg/0.5 8-01 under the ity o f mL SC 04:11: skin. [place] injection 16 Medical Branch Ustekinumab Yes inject Univ ers 45 mg/0.5 8-01 under the ity o f mL SC 04:11: skin. [place] injection 16 Medical Branch proMETHazin Yes [id number] 25mg Take 1 Univers e 25 mg 8-01 tablet by ity of tablet 00:00: mouth [place] 00 every 6 Medical (six) Branch hours as needed for N/V unresponsi ve to Ondansetro n. proMETHazin Yes [id number] 25mg Take 1 Univers e 25 mg 8-01 tablet by ity of tablet 00:00: mouth [place] 00 every 6 Medical (six) Branch hours as needed for N/V unresponsi ve to Ondansetro n. proMETHazin Yes [id number] 25mg Take 1 Univers e 25 mg 8-01 tablet by ity of tablet 00:00: mouth [place] 00 every 6 Medical (six) Branch hours as needed for N/V unresponsi ve to Ondansetro n. proMETHazin Yes [id number] 25mg Take 1 Univers e 25 mg 8-01 tablet by ity of tablet 00:00: mouth [place] 00 every 6 Medical (six) Branch hours as needed for N/V unresponsi ve to Ondansetro n. proMETHazin Yes [id number] 25mg Take 1 Univers e 25 mg 8-01 tablet by ity of tablet 00:00: mouth [place] 00 every 6 Medical (six) Branch hours as needed for N/V unresponsi ve to Ondansetro n. proMETHazin Yes [id number] 25mg Take 1 Univers e 25 mg [...] 07/19/20 at 1730, STAT ondansetron 0 Yes [id number] 4mg Take 1 Univers (ZOFRAN 5-18 tablet by ity of ODT) 4 mg 00:00: mouth [place] disintegrat 00 every 8 Medic al ing tablet (eight) Branch hours as needed for Nausea and Vomiting (N/V). ondansetron Yes [id number] 4mg Take 1 Univers (ZOFRAN 5-18 tablet by ity of ODT) 4 mg 00:00: mouth [place] disintegrat 00 every 8 Medic al ing tablet (eight) Branch hours as needed for Nausea and Vomiting (N/V). ondansetron Yes [id number] 4mg Take 1 Univers (ZOFRAN 5-18 tablet by ity of ODT) 4 mg 00:00: mouth [place] disintegrat 00 every 8 Medic al ing tablet (eight) Branch hours as needed for Nausea and Vomiting (N/V). ondansetron 2020-0 Yes [id number] 4mg Take 1 Univers (ZOFRAN 5-18 tablet by ity of ODT) 4 mg 00:00: mouth [place] disintegrat 00 every 8 Medic al ing tablet (eight) Branch hours as needed for Nausea and Vomiting (N/V). ondansetron 2020-0 Yes [id number] 4mg Take 1 Univers (ZOFRAN 5-18 tablet by ity of ODT) 4 mg 00:00: mouth [place] disintegrat 00 every 8 Medic al ing tablet (eight) Branch hours as needed for Nausea and Vomiting (N/V). ondansetron 2021-0 Yes [id number] 4mg Take 1 Univers (ZOFRAN 5-18 tablet by ity of ODT) 4 mg 00:00: mouth [place] disintegrat 00 every 8 Medic al ing tablet (eight) Branch hours as needed for Nausea and Vomiting (N/V). ondansetron 2021-0 Yes [id number] 4mg Take 1 Univers (ZOFRAN 5-18 tablet [...] 4-06 by mouth. ity of capsule 00:00: [place] [facility] FLUoxetine 2021-0 Yes 20mg Take 20 mg U nivers 20 mg 4-06 by mouth. ity of capsule 00:00: [place] [facility] FLUoxetine 2021-0 Yes 20mg Take 20 mg U nivers 20 mg 4-06 by mouth. ity of capsule 00:00: [place] [facility] FLUoxetine 2021-0 Yes 20mg Take 20 mg U nivers 20 mg 4-06 by mouth. ity of capsule 00:00: [place] [facility] FLUoxetine 2021-0 Yes 20mg Take 20 mg U nivers 20 mg 4-06 by mouth. ity of capsule 00:00: [place] [facility] FLUoxetine 2021-0 Yes 20mg Take 20 mg U nivers 20 mg 4-06 by mouth. ity of capsule 00:00: [place] 00 [facility] Fluoxetine Yes [id number] 20mg Take 1 K elsey HCl 20 MG 4-06 capsule Seybold oral 00:00: (20 mg Capsule 00 total) by mouth daily Fluoxetine Yes 20mg Take 20 mg K elsey HCl 20 MG 4-06 by mouth Seybol d oral 00:00: Capsule 00 Fluoxetine Yes [id number] 20mg Take 1 K elsey HCl 20 MG 4-06 capsule Seybold oral 00:00: (20 mg Capsule 00 total) by mouth daily lactobacill Yes [id number] 1{tbl} Take 1 Univers us 5-30 tablet by ity of acidophilus 00:00: mouth 2 Gaurang as 25 million 00 (two) Medical cell -100 times Branch mg captab daily. lactobacill Yes [id number] 1{tbl} Take 1 Univers us 5-30 tablet by ity of acidophilus 00:00: mouth 2 Gaurang as 25 million 00 (two) Medical cell -100 times Branch mg captab daily. lactobacill Yes [id number] 1{tbl} Take 1 Univers us 5-30 tablet by ity of acidophilus 00:00: mouth 2 Gaurang as 25 million 00 (two) Medical cell -100 times Branch mg captab daily. lactobacill 2020- No [id number] 1{tbl} Take 1 Univers us 5-30 07-31 [...] ity of mg 03:15: 02:07 ONCE, 1 [place] 00 :00 dose, Sat Medical 03/28/19 at [...] Branch 2014, STAT traMADol 50 2020-0 Yes [id number] 50mg Take 1 Univers mg tablet 1-25 tablet by ity o f 00:00: mouth [place] 00 every 6 Medical (six) Branch hours as needed for Pain (scale 4-6). ondansetron 2020-0 Yes [id number] 8mg Take 1 Univers (ZOFRAN 1-25 tablet by ity of ODT) 8 mg 00:00: mouth [place] disintegrat 00 every 8 Medic al ing tablet (eight) Branch hours as needed for Nausea and Vomiting (N/V). traMADol 50 2020-0 Yes [id number] 50mg Take 1 Univers mg tablet 1-25 tablet by ity o f 00:00: mouth [place] 00 every 6 Medical (six) Branch hours as needed for Pain (scale 4-6). ondansetron 2020-0 Yes [id number] 8mg Take 1 Univers (ZOFRAN 1-25 tablet by ity of ODT) 8 mg 00:00: mouth [place] disintegrat 00 every 8 Medic al ing tablet (eight) Branch hours as needed for Nausea and Vomiting (N/V). traMADol 50 2020-0 Yes [id number] 50mg Take 1 Univers mg tablet 1-25 tablet by ity o f 00:00: mouth [place] 00 every 6 Medical (six) Branch hours as needed for Pain (scale 4-6). ondansetron Yes [id number] 8mg Take 1 Univers (ZOFRAN 1-25 tablet by ity of ODT) 8 mg 00:00: mouth [place] disintegrat 00 every 8 Medic al ing tablet (eight) Branch hours as needed for Nausea and Vomiting (N/V). traMADol 50 Yes [id number] 50mg Take 1 Univers mg tablet 1-25 tablet by ity o f 00:00: mouth [place] 00 every 6 Medical (six) Branch hours as needed for Pain (scale 4-6). traMADol 50 2020- No [id number] 50mg Take 1 Univers mg tablet 1-25 07-31 tablet by ity of 00:00: 00:00 mouth [place] 00 :00 every 6 Medical (six) Branch hours as needed for Pain (scale 4-6). ondansetron 2020- No [id number] 8mg Take 1 Univers (ZOFRAN 1-25 05-18 [...] 17:28:00 117 mm[Hg] Univer [facility]ity of [facility] Diastolic blood 2020-11-02 17:28:00 75 mm[Hg] Unive rs[facility] Heart rate 2020-11-02 17:28:00 80 /min [facility] Respiratory rate 2020-11-02 17:28:00 20 /min Univ ersity of [place] [facility] Body height 2020-11-02 17:28:00 157.5 cm Universi ty [facility] [place] [facility] Body weight 2020-11-02 17:28:00 90.719 kg Universi ty of [place] [facility] BMI 2020-11-02 17:28:00 36.58 kg/m2 Universi ty of [place] [facility] Oxygen saturation in 2020-11-02 17:28:00 99 /min University of Arterial blood by [place] Medi parth Pulse oximetry Branch Systolic blood 2020-10-02 04:23:00 124 mm[Hg] Univer sity of pressure [place] [facility] Diastolic blood 2020-10-02 04:23:00 86 mm[Hg] Unive rsity of pressure [place] [facility] Heart rate 2020-10-02 04:23:00 76 /min [facility]i ty [facility] [place] [facility] Respiratory rate 2020-10-02 04:23:00 17 /min Univ ersity of [place] [facility] Oxygen saturation in 2020-10-02 04:23:00 96 /min University of Arterial blood by [facility] parth Pulse oximetry Branch Body temperature 2020-10-02 03:27:00 37.11 Zulma Univ ersity of [place] [facility] Body height 2020-10-02 03:27:00 157.5 cm Universi ty [facility] [place] [facility] Body weight 2020-10-02 03:27:00 91.173 kg Universi ty [facility] [place] [facility] BMI 2020-10-02 03:27:00 36.76 kg/m2 Universi ty of [place] [facility] Systolic blood 2020-07-20 00:00:00 144 mm[Hg] Univer sity of pressure [place] [facility] Diastolic blood 2020-07-20 00:00:00 90 mm[Hg] Unive rsity of pressure [place] [facility] Heart rate 2020-07-20 00:00:00 69 /min Universi ty [facility] [place] [facility] Respiratory rate 2020-07-20 00:00:00 18 /min Univ ersity of [place] [facility] Oxygen saturation in 2020-07-20 00:00:00 95 /min University of Arterial blood by [facility] parth Pulse oximetry Branch Body temperature 2020-07-19 21:57:00 37.22 Zulma Univ ersity of [place] [facility] Body weight 2020-07-19 21:57:00 99.338 kg [facility] BMI 2020-07-19 21:57:00 40.06 kg/m2 [facility] Systolic blood 2019-03-29 03:00:00 112 mm[Hg] Univer sity of pressure [facility] Diastolic blood 2019-03-29 03:00:00 66 mm[Hg] Unive [facility] Heart rate 2019-03-29 03:00:00 76 /min [facility] Respiratory rate 2019-03-29 03:00:00 16 /min [facility] Oxygen saturation in 2019-03-29 03:00:00 98 /min [facility] Arterial blood by [facility] Pulse oximetry [place] Body temperature 2019-03-29 00:03:00 36.39 Zulma [facility] Body height 2019-03-29 00:03:00 157.5 cm [facility] Body weight 2019-03-29 00:03:00 99.791 kg [facility] BMI 2019-03-29 00:03:00 40.24 kg/m2 [facility] Procedures Procedure Date / Time Performing Clinician Source Performed PATHOLOGY OUTSIDE 2021-02-13 00:00:00 Miranda Veliz MD Andleo n INTERPRETATION OSI CT SFT TISS NECK 2021-01-30 15:06:00 Juwan Ardon MD nderson ASSIGNMENT OF BENEFITS 2020-11-02 16:11:47 [facility] [place] [facility] LIPASE 2020-10-02 04:35:00 Jose Rodriguez [facility] COMP. METABOLIC PANEL 2020-10-02 04:35:[address] [facility] ([id number]) [facility] CBC WITH DIFF 2020-10-02 04:35:00 Jose Rodriguez [facility] URINALYSIS 2020-10-02 04:32:00 Jose Rodriguez [facility] CONSENT/REFUSAL FOR 2020-10-02 03:12:32 Doctor Unassigned, [facility] DIAGNOSIS AND TREATMENT [place] [facility] COVID-19 (ID NOW RAPID 2020-07-20 00:02:00 Zen Paz [facility] TESTING) Medical Branch LIPASE 2020-07-19 22:26:00 [facility] COMP. METABOLIC PANEL 2020-07-19 22:26:[address] [facility] ([id number]) Medical Branch CBC WITH DIFF 2020-07-19 22:26:00 [facility] URINALYSIS 2020-07-19 22:26:00 [facility] NOTICE OF PRIVACY 2020-07-19 21:38:41 Doctor Unanaa, [facility] [place] [facility] CONSENT/REFUSAL FOR 2020-07-19 21:37:52 Doctor Rosie [facility] DIAGNOSIS AND TREATMENT [place] [facility] CT ABDOMEN PELVIS W 2019-03-29 02:36:34 Jose Rodriguez [facility] CONTRAST [facility] POCT TEST 2019-03-29 00:48:00 Jose Rodriguez [facility] LIPASE 2019-03-29 00:47:00 Jose Rodriguez [facility] COMP. METABOLIC PANEL 2019-03-29 00:47:[address] [facility] ([id number]) [facility] CBC WITH DIFFERENTIAL 2019-03-29 00:47:00 Jose Rodriguez [facility] URINALYSIS 2019-03-29 00:47:00 Jose Rodriguez [facility] NOTICE OF PRIVACY 2019-03-28 23:58:28 Doctor Unanaa, [facility] [place] [facility] CONSENT/REFUSAL FOR 2019-03-28 23:55:31 Doctor Rosie [facility] DIAGNOSIS AND TREATMENT [place] [facility] Encounters Start End Encounter Admission Attending Care Care Encounter Source Date/Time Date/Time Type Type Clinicians Facility Department ID 2021-02-21 Outpatient SYSTEM, CUCA THURMAN [id number] 16:13:12 PROVIDER Kuldip o n 2021-01-02 Emergency [facility] [id number] Univers 12:14:09 [facility] 2021-01-01 Emergency X [facility] ERT [id number] Univers 19:53:57 ity [facility] 2021-01-01 Emergency [facility] [id number] Univers 19:53:02 ity [facility] 2021-03-23 2021-03-23 Outpatient KAROLINA CLAROS [id number] Karolina 00:00:00 00:00:00 ANNABELLA Seybol d 2021-03-23 2021-03-23 Outpatient MIGUEL ANGELLUISKAROLINA [id number] Karolina 00:00:00 00:00:00 AHMED Seybol d 2021-03-14 2021-03-14 Outpatient KAROLINA CLAROS [id number] Karolina 00:00:00 00:00:00 ANNABELLA Seybol d 2021-03-01 2021-03-01 Outpatient KAROLINA CLAROS [id number] Karolina 00:00:00 00:00:00 ANNABELLA Seybol d 2021-02-28 2021-02-28 Outpatient ERIC ARDON MDA [facility] [id number] 09:05:06 09:05:06 JUWAN guidry 2021-02-09 2021-02-09 Outpatient SATNAM MOORE [id number] Karolina 00:00:00 00:00:00 MD RILEY Seybol d 2021-02-07 2021-02-07 Outpatient KAROLINA MOORE [id number] Karolina 09:50:00 09:50:00 Seybol d 2021-02-07 2021-02-07 Outpatient ESTRELLA PARMAR [id number] Karolina 00:00:00 00:00:00 Seybol d 2021-02-06 2021-02-06 Outpatient ESTRELLA PARMAR [id number] Karolina 00:00:00 00:00:00 Seybol d 2021-02-01 2021-02-01 Outpatient KAROLINA MOORE [id number] Karolina 12:40:00 12:40:00 Seybol d 2021-01-30 2021-01-30 Outpatient KAROLINA LEE [id number] Karolina 00:00:00 00:00:00 EUGENIA Seybol d 2021-01-25 2021-01-25 Office LeeJEAN [id number] Karolina 11:30:00 12:00:00 Visit Eugenia Becerra [id number] Seybold [id number] [id number] 2021-01-20 2021-01-20 Outpatient KAROLINA CLAROS [id number] Karolina 00:00:00 00:00:00 ANNABELLA Seybol d 2021-01-18 2021-01-18 Outpatient LAB90 KAROLINA MOORE [id number] Karolina 11:55:00 11:55:00 Seybol d 2021-01-18 2021-01-18 Office Myron Claros [id number] Karolina 10:49:52 11:19:52 Visit Annabella Weaver [id number] Se ybold [id number] [id number] 2020-11-04 2020-11-04 Letter ROBERTA Kaiser [id number] Univers 00:00:00 00:00:00 (Out) Yajaira AJ [id number] it y of [facility] [id number] Gaurang as [id number] [address] 2020-11-02 2020-11-02 Urgent Nasreen Ledezma [facility] [id number] Univers 11:13:05 11:33:05 [id number] [facility] [id number] Gaurang as Bebo?Blea [id number] [address] Medical Office Building 2020-11-02 2020-11-02 Outpatient R [facility] [id number] Univers 11:20:00 11:20:00 [id number] y [facility] 2020-11-02 2020-11-02 Out[facility] [id number] Univers 11:20:00 11:20:00 RANDY palomino o ady [facility] 2020-11-02 2020-11-02 Orders Doctor GRANADOS [id number] Univers 00:00:00 00:00:00 Only Unassigned, JEAN MARIE [id number] ity of [place] [facility] [id number] Gaurang as [phone] [facility] [address] [place] 2020-10-01 2020-10-02 Emergency Bernardo, [facility] [id number] Univers 22:30:00 01:56:00 Jose Walsh Randall [id number] i ty of [place] [id number] [facility] [id number] [address] 2020-07-19 2020-07-19 Emergency , [facility] [id number] Univers 16:54:00 19:37:00 Zen Randall [id number] i ty of [place] [id number] [facility] [id number] [address] 2020-07-19 2020-07-19 Orders Doctor ROBERTA [id number] Univers 00:00:00 00:00:00 Only Unassigned, JEAN MARIE [id number] ity of [place] [facility] [id number] Gaurang as [phone] [address] 2020-06-07 2020-06-07 Outpatient LAB90 KAROLINA MOORE [id number] Karolina 10:00:00 10:00:00 Seybol d 2020-06-07 2020-06-07 Outpatient ESTRELLA PARMAR [id number] Karolina 08:30:00 08:30:00 Seybol d 2020-02-04 2020-02-05 Inpatient E NICOLE, BL MED [id number] BL 11:00:00 16:58:00 JOSEPH 2019-09-11 2019-09-11 Laboratory Lab, Adc Fam Pob I [facility] 1.2. [id number] [id number] Univers 14:09:42 14:29:42 Only Savana Richardson [id number] ity of [place] [id number] Gaurang as Professio [phone] Hi dical [facility] 044 Branch Office Building One 2019-09-11 2019-09-11 Outpatient R [facility] [id number] Univers 14:20:00 14:20:00 [facility] 2019-09-11 2019-09-11 Outpatient R [facility] [id number] Univers 14:20:00 14:20:00 [facility] 2019-07-29 2019-08-01 [facility] [id number] Univers 14:08:13 12:04:00 MACK [facility] 2019-03-28 2019-03-28 [facility] [id number] Univers 18:12:42 22:01:00 Jose Pereira [id number] i ty [place] [id number] [place] [facility] [id number] [address] Results Test Description Test Time Test Comments Results Result Comments Source Pathology Outside Interpretation 2021-03-14 14:07:55 Test Item Value Reference Range Interpretation Comme nts Materials l6wqqYUzUCBouVTiPuFiANFaISXrb9auJGZbtQInQgNuBeFeNsBkJxtctPSsTEJyQzZwb6ozz508yHHk l7kmOLTwEiP5hXHdDAWejIRzR053VAAdZEgjz2zbd1BlJCHugXPhg2H5ZDXHjnlguWm7oVaaG43si5G6 BtggI7iyDBPeIHFtT6UvQX6iBABbLjp7GGP0SMD7CFP Received hATOcU2EePS7lTUOggUBeCGk8v8gyjRgxHTLzIUG1a5rzRVyqagOoMI3irx2vdOv6x9mcyrJhZZEvKPL qrBCVOZXxH4StiVaeLq9epSd5kNclSgmnEZF0Hww3YD4gdb16ddp9cMzzZQNojacnTbV6WShmEMWcasm pVUc6NLuyIKNsaNofHPozZCNfgleqZDecPJEriZM4TR (test code QlpCSlE7KlNUGlOSkxLKJbvqv2GhMoIu5rfIPmsIhhAVvam1dcm0ddrLNaNdf6LOCjFaItSvzpFBect7 Ina4gaFRRgay4pSJR7mRYjpPtst3N2tOLwMODpfEYagzKzWNHdso11jLFyuTMwxKFlty8prtAjoXDtcU PjXLW5zEGvleUkMORwwIGzHSXcFS8iaZUcVLDqhJ5uq = 9973) zbyVHRkQlJbfehdUSCwaWdctvFuDs8apWllOYG6AEhrO2hjcN4zMgM9PKszP7bveN2rHAb2KWryxOD1K IFxgX6hES5eyckkb3geOfYwIG2rnbzea3bdUdAdAC1qaqr9y7lhHEJ3EGzhTKSxKtH7hnF2JVQkuHWlS RNccSigYDdos697EHY0LnHnLCFfx6ShU0NeyYciD87p zXplH39uPAOegIaqaD0ihNourO4pRoYiCwZpCPi4ea73XAp6ocgidGuiDFi2tiAcZFHiGNP1NYJfcSYh PXJnD3y6jkZbZPXqQMD3SWLpjNZmUROtK4i2wvLpNLI5JPx7rdJlZDLiqAOtdVSvFHZtZbOdbLNiKFLv BcJzAGAseBAiaFZqeEMbqC2kbEzwFLKemTTubM4fNZW 7FAVzpmkyAnQdhOPdJPRfuWIgzz90ZYYqfdGrgYGdiSevnKVdXCV9QTIgGTCaIRQnYLN7FXJiXeJsndT kQPyxqFGcZMXaRBHeFRLhMTOqRKS9GQTkXyKtneYgNHgltTBgQYIlNDKcPTEdIMMyDDE2NXUkJnAxxtA iHUhbvJNgRBNqLXDhQWHuURFrGRA1YVQxJuQdskEnNF nigEAvQDPrKYjzbZVlHBM3X7fsfUXvBPXrOAzmaHWfWIHzX5auhWIkVIzrBKIqyRWtOwvuRASweRNmIr TuJ5xzJTOdSmDfI4BarFk0CLIjTNGbdbLmaVDypIxdiNWyVJT1VLPjCSZdIXBeFAO8FXOcMtXlryVbJP wkhITzQAFdYUUxYQCfPOPkKGH0LSCtAnHiphZyZSani JEySFPsEMCbMIEkUYSgFXR3GKGiMgBmtrZfGKbpjESmRYPjYCAjUPUeSSKmPHK3ILFyEwUkpsEeRRwif PMrEVToYXrsmZIkOVR2K1gbwRDyWUWhLUrndVNnQEKrV4etxBUqWOmtRBSwnDPkDnqbQZEdzHXzXpZnX 8lhSJXxOcIxA6BqlXa8LkRvENOgknWlaJXdaFklmOAt XIR2MXAcZTJkXAEkUWT5KPNhXaGwyaZqXFbjySKqMOPqVUGoRTUlXXDpXTT4CHPfPsDdgfTeXJyezYUu MPOdYMKiGAWiTQAyPAI5YNQtFnRtqoMsCHitbZZwAYNxJYTvXCLdKDAcVNF3MOKmLiXtnhQsAIgelPZt IHKqJJvgpTPeOZB9W2xpxMOoZKKrNRstmUAdPHUtT0t stQNyJRhqLKQvjJRuGmdlRRXfmEWqRkZdP5cfRXAlTiWzQ5IkbMn0WkNjIEJmggKevI63Wjrgi9IjSEM hKAL9JEkrEPccqTknxRPfoelaEXragqDkLMutdewwYASgBHerX1uaDmSlNLBfbZaqADfmo7TlETOcALI cKvjgobLcVJVyZQWlITKqzA7cEqryV1HydV3eIQuqZo pxE0ptHWZvg4NxjQ9iHBrkkSUsjnhwBNkwnaFwVBpyiwfaNOEgCNohV3lpFiGlGQNavBgvFKwap2IiXD RhYRJwZymzagIlEYo7nmIbMMYfjXwwjKDqHHpbloLtgDrua7VldsHdgEjqOBWwJQz4bvOjzkfjuKc2fZ WegJtbLXAjoBqwnD9zWySoLaUxQNsotVIpicplZIqns mAzXZzotdwdWHAcLDpxX3ihUnKgLOKseQhrZFowf9FwZKIfEMEbRydcltIzQDScL67oeSVscHQsJRVuW NbvGPQdSBKfDcErqKZkQxEdHnEmzFqewBsrVMqqVtDrBGUoLHcdB2vdLhRaS9AtYPOyJrFnaZNjZ7sjY 3KteUciSJDyKGrfpYNyJKKxmJRiLUU8qMXkanFfbWHg nYFkYXKiZEgfMRG6kRJobbqhfUJmbudySAonqyJ8WKQtNKnoAXOmGSFxSuLnjJPzGtYsUwGlwVsfzNys ZIdnHxMkRAMgFKziI8cfXwNpD7WnGQNrPuQmGfAVQYTvbJYhKKyrnUWmgjmzYBavvsYaOPrsxydjTPXb ZAhuY5wdKaHrMVSplXdxWMgai1XsHGRfQOScTflucbO jFYs5jgKuODKzkOlgvF91Kbiprx16SLNub2awJRLrK0QccCOoVRHtmGEnYFwlOMwvfQZpYYQjEeriHTX hiKNgMNTbYBaqaKLkFSEpZiGrVAXaxFLiAHKtGBLodJEuPYQ7S6k6bcTgECHsBVv7kzVaUMScLkSacWH kMFX5XSc2CxssakA2gYJjL7m0NqtbckSoBPsskEWbhu 29ULLquqBgtAVfbNpeeIWgGKX3GNFvVITrVCEpGJE6EQEkVjAqlaCbOWhihGAcYATvGGSbYJLiEQXgJZ M4WORjAtKgwiNeBActjXWmLMSeSBBcWYDgMMVwCCR9GWHhXrLogmEpKBwrdXExYRGsVRJnDPLwLAPoZY C0SUCbEyGkpeNlIBauxLCxLDGgHObxeUEySYT2K1bhp BJyVGMuIIalzKQaLZTfR7fdqROiUTzqZWWzqYLtChnwLORuyNOmNsSyI0ksTCQcNqLwG3DwaYj4SRDzJ CIpleFapDRzfXfqxLTeYZM4EFXfRSZgRWHhWZZ3KIUgRsIctmNrGWfyjCSpJHLeGFUwQMFfNHNkONW2V XPyZyWxggMcNAobhFBsVNJzYGBaMQAsBQYwSND7IVLm RcFrpiWoHLzzjVRuRPBaHDEuEYItFQGvRHF8KSJlZyGngoUtGEdibRClZYTyTEiusKWfFBH2R8tbyKEe EVYoMBauvSNlVYDlZ6kfpEIyAWzfBBSwjMHaWvgiKADpcBEcRbLtS1rtIZKuHhStZ9NkkRh8UoWdAJNw ghVrmAGqlJhzbSMrPHH9ZCNeHQDfHTLuRHL9WFItWyE nrcZgRJppnOAtELBxWGJeMYIiSPLzNEJ7DVQbNmSiyaXjPXomqLMhLMFeLIVdZXKcGSLlSDR5OQRzGyU nlqOzWLurhLDxQKOsHUKlKTQmGOLrCQZ2KFCbAfMkydWhRGhudKLxTZGnHMipfFFgHBK6H6cadKPtSLZ mAMlivMMkPVVsG1fofQEbBKhdVVCulEPlTlwqUDUqxL FhEfPxV9muZODjQjDnX2WidDd3NeSyRZPgtzCzcH10Kdvwk1TdXBIgXPR1RNvaHXuclOljmDNsnstkQV ecbvX8UEUxKCnuPFRsHVNwNcBpyVWsSoAjZrOywKrliRucOBqnPsXlTIUeRZmcI1ieAdXzA1VtUUIcYh DzGG3hDwS0OQZvPUXvSXWdUWSMWbjkFSDENQ3KR2TfH HOfNOOCQPAxJGxlDTFuHJAuObTqdVArRbWgYfUkhIyfaDreLQjaYlSkBQXvOLrlJ8kfRiDbT4MbPZGeG sIcvRJaV0sbY9TpqYxaGUIlSAfmkAYhDXOtaMIoSAY3xWDxchVkvCtioSyxcO3dMdDmZvHkMOlxyGFgh jmgEPsghgSiPBddyayoYZGyZNubC3ihCkQuGXMtzRoj HTsar4AzOGXeBPRaXckzluYoUNSqHzWaLpMgRuLzqIzpoG1vIdJzKnJmXJjqTI0kVCDcH7jqiZCoEUMt UKXqD8ydRbYugS8fpNovTFxeIaMjPfQnDWtybHKwsYbxEEflFQQiueBnvA74Tbgfo4SxNOOxGNT1BUin RCajzEcnjIFbcsmaVKhudfL0UWXqPJlsZKYpAUEnGyH edAJyGmAaPuWdlWctaWgsNXuxOqOiHBZyBYynW4whRnAgX7IaQGYjOoLiXO9dYU7lEKOhUYWdXZwyTFQ wPRMzUnTrkQEaRuNbUaLlqEnshQtuDNpyVtSmYHOfGFdmK7gjPeUcR4JnVYKrUcDjiRKvJ1oqJ2CvbUx ghzUyyPbrx4fyhNIfBBxvw7DzihOutGluIAUgMYIqFH KoCHfmKZHwGBWpXsKmkAjohH2wQbTvDrOnFBhyNG3dLBTrY8ovlSKjJNUtBZZzF8jrTfBfjK0miIzlPV xmczIwXHBhcn0= Diagnosis e7yztDYiLAUinDU2YhVqSGDis2quz2OjvDJxxIYsKVjgvVNuksTzep46zIZ5zO54OR8hFPReAwX0DPXl tsO0Vpr4ZPZqHBPthHUoG996i1xhr2dpwgJtxTQ6XSHwBFPsB4LxXU0nKTJcqFDmE95rbWWrZVZ6LODy UNMzbUAiUZShOCO2HWEubXLnC4boNKAaZK2hflvyHKz (test code kJJjxLIHzgIZ4VKIkvZBxG3AzKVObBOjsLHLvycv4UvJrYy8zyFDlcZvuJObsTZYjRYJwGUlvLOPhWeN mH7KvBQa1jJVxBM0yOJAtTUfzZeFalFWlTTRgnhYehjfsHVA9J6khgM3jYUczPzdezRD7QbglQXSaR2A lVOFmdfnesWmbUOvudG89UmBeYAhPYbRKZXOXIWQHRT = 34) MXJPBIYBdzXSpPSIpCVZIcJSufZHdbOUwpIR1IDRJSYSzSF1SDFLXtVWjTYTrYBXPhFYaTASDFEQKOUX kzDV8xQIKhMTXjnpdxGXFsVRpyOM6hb1PfDLBwGEqqedLxOXghhf9ymoUeUJRvhcQbikSKQTUyaEdcuR 7taP3ntHtpfs81hMUkSEFmDZSEvL84DwQfebE+OTAtO TUlIFxwYXJccGFyZFxwYXJ9 Comment c2acgFRlPMDlbMH7TlLqOVRrv9crn5VmoNJnxOGeCDwssWAumkAvtm20mRC1uY09TO4uBJDnYpX8OYLx xyH5Vzp0QLTiLJOriXHtJ978d3czi1fscoEqjFP6yOluIBChfdssAiK9GFfoBFFhvfehSKu5AQxvUSUv uGU2OVYuhAMtW7KvGMSvSB0tjjc1SGU0YZhfGZCePeO (test code 4XDYidDYxCNFnvOxaAEfdk915WRJ4TcSyABHumlMhrKpzbM4dWiQuOEMWgCV6e9uoE6mpCPYbD8Pwu87 wEAUll3kftQorwNvbtz0qPAIycyQ0mXxkvSN4gVIpRQNzuAo5KHN6oUXjSWrjDJHamR9nbQPwd75reOZ 2ZCx7BJSegGxjT1YkCEX4EFn9uKMhk64rNrKxGR2nfW = 9835) [file] eYVjU8EoBw98VTlkKIPHFWJfofffNOS9 Disclaimer x0choMFwXFVgdJKcYwZuGJImXNCgq1lbHCKxoCNqMtKoRySyVxHdHfrefDJgEWVxRmNuy3maq449mRCa z4suVRJyLoE6aYNmGARecDBaM162DURfCGdlv0tlv4FgJIWnbHTuk7K2RUPXaczhmWd1fOkcS53ta2E7 GemfJ8otQYAgYQKgA6YzVW0cEJAxYty2WDG4NTL1HDQ (test code iYHVtJ7XgBW9gBRVtiGBeGIr2b0nceIpaBHGcXMB4d3eoRWixvsNySO4yve0exHg5g7djruAcZTLmAJV bjRVPFXQbD7HeqQtxWo7ojSv5xQnqAiuqNSQ1Jtm2MQ8xze46krd1hUuuCQWoeaunYtR6AQsfJNTylev dJMm1IAslWOXfdDN5YZOcmQYoH5NlQUDkTY6flbw2GY = 9844) F2QJbaHBYgIfI4GSEtbTKzCZCftKjkVRofp828PBT9JfIsUB9oF5Toi4B9xV2puUHnKCXprILdEgOzCZ Qkzz3uyEVaLNxjf7EzSBP9buN1xVQshWGcZGGtFO64Fcvdv6TyHkxnRSJ8TWEobwUss6Bhp8gtDqHkrk ZvW3oxH7ZbCRBxCVDwYBCgVjIowuXdo9Apn5VmuFFjv Ua1w0exXLAkWGGyzVeht4aoLVH0GKJoH8R7oOJyp9vlPByuYFKvcGC6beD8LQVhsTDfM2GgdW8tQQPlK C1fbyd3f2qgDKH6CYgiTZStShF3mrF1FRBxuCAlIMHfkLaeSGizg233RSS9RsWeJMHtj0GqU1FbvKgyP 35osBhoA51iTGXefEnegF2jkOkyrA7bSvYqKjMxHElh uWhciZTcuhroMJpvbnZ5YHbnchcoSXXjAKuzK4dgDvUkETQkwVvoOOpih1LkTLEeUPFeXxrymcL2WPJA q43kSBCig0ZtKESdrS9qhWWyVGdxwpUwiYH6KXnkjeHyNyTnryGlHOTkpV2oNTMvZY8zTYRqdrQcre5a avGcZLLdWBLgY9UskejleRdneaNdXOPfuf8lpzOlHKX 3DRMIWY6QOSAtBBJik13hISZxuVmiyJ8quHKamxYbBAKap5OlrC8edKIVGOTeN0ueVA0iMKmge2RhyZD eoENssZI7OXFtl8QnAuPjlcVdjWUtrYNuD5YemCefV5yoWHHgAMNqmqPenSEup4DoDBLbgKR3jHAsOR8 EVyUCt96vLNEeVOWOfqPxZWDkgTwntMA3qqK1hF0fIs GPUrUbnFUioZYeLpnuXWKqb178dq4bcuS8OAZhQWHzbybjy0CaPKJcBROyzE26WBPrIJZnhf4rcvazbO XwrjTyO7Mkbrw2vF1yIROmJOzwPNYkMZKnVaPwkULgEtLcVxAnhYpmyJblVQayFgTsDRIdNKdwN5zgYt FcZnMyMlxwYXJ9 MD CastleFREEM[facility]HO HOSPITALMariam. METABOLIC PANEL ([id number])2020-10-02 04:58:30 Test Item Value Reference Range Interpretation Comments NA (test code = 138 mmol/L 135-145 2380339963) K (test code = 3.9 mmol/L 3.5-5.0 5634139014) CL (test code = 102 mmol/L 98-108 5130933452) CO2 TOTAL (test code = 25 mmol/L 23-31 9890773214) AGAP (test code = 2-16 1035529796) BUN (test code = 20 mg/dL 7-23 8401441757) GLUCOSE (test code = 96 mg/dL 70-110 3550808178) CREATININE (test code = 0.56 mg/dL 0.50-1.04 2864390584) TOTAL BILI (test code = 0.8 mg/dL 0.1-1.4 9010131910) CALCIUM (test code = 10.2 mg/dL 8.6-10.6 4775989989) T PROTEIN (test code = 8.8 g/dL 6.3-8.2 H 4953676180) ALBUMIN (test code = 4.7 g/dL 3.5-5.0 2235268322) ALK PHOS (test code = 99 U/L 34-122 7930703844) ALTv (test code = 38 U/L 5-35 H 2-6) AST(SGOT) (test code = 31 U/L 13-40 9583687637) eGFR (test code = mL/min/1.73m2 4139548317) SCOTT (test code = SCOTT) Association of [...] tests). Lab Interpretation Abnormal (test code = 83010-2) [facility]30 Test Item Value Reference Range Interpretation Comments LIPASE (test code = 6637858820) 243 U/L 0-220 H Lab Interpretation (test code = Abnormal 59137-0) [facility] 04:51:44 Test Item Value Reference Range Interpretation Comments APPEARANCE (test code = Clear Clear 4377033455) COLOR (test code = Yellow Yellow 4326123913) PH (test code = 4.8-8.0 3904549767) SP GRAVITY (test code = 1.003-1.030 9894270650) GLU U QUAL (test code = Normal Normal 2067369459) BLOOD (test code = Negative Negative 7240565741) KETONES (test code = Negative Negative 8312992512) PROTEIN (test code = Negative Negative 2887-8) UROBILIN (test code = Normal Normal 5804888691) BILIRUBIN (test code = Negative Negative 8188676334) NITRITE (test code = Negative Negative 2591647138) LEUK BAILEY (test code = Negative Negative 3050578355) RBC/HPF (test code = See_Comment [Autom ated message] 5101372862) The system [employer] generated this result transmitted ref erence range: 0 - 3 HP F. The reference range was not used to int erpret this result as normal/abnormal . WBC/HPF (test code = See_Comment [Autom ated message] 1966008257) The system [employer] generated this result transmitted ref erence range: 0 - 5 HP F. The reference range was not used to int erpret this result as normal/abnormal . BACTERIA (test code = Negative Negative 4633574832) MUCOUS (test code = Slight Negative LPF A 1855981628) SQ EPITH (test code = HPF 5945023127) Lab Interpretation (test Abnormal code = 35826-7) [facility] WITH [id number] 04:45:31 Test Item Value Reference Range Interpretation Comments WBC (test code = See_Comment [Automated 0790-2) message] The sy stem which generated this [...] (test code = 38.7 fL 39.0-49.9 L 18322-4) RDW-CV (test code = 12.9 % 12.0-15.5 788-0) PLT (test code = See_Comment [Automated 777-3) message] The sy stem which generated this result transmitted reference range : 166 - 358 10*3/ ?L. The reference r lenard was not used to interpret this result as normal/abnormal . MPV (test code = 9.4 fL 9.5-12.9 L 50621-7) NRBC/100 WBC (test See_Comment [Automat ed code = 9975693075) message] The system which generated this result transmitted reference range : 0.0 - 10.0 /100 WBCs. The refer ence range was not u sed to interpret th is result as normal/abnormal . NRBC x10^3 (test code <0.01 See_Comment [Auto mated = 0963899175) message] The s ystem which generated this result transmitted reference range : 10*3/?L. The reference range was not used to interpret this result as normal/abnormal . GRAN MAT (NEUT) % 52.7 % (test code = 770-8) IMM GRAN % (test code 0.20 % = 0643114440) LYMPH % (test code = 38.2 % 736-9) MONO % (test code = 7.6 % 5905-5) EOS % (test code = 1.0 % 713-8) BASO % (test code = 0.3 % 706-2) GRAN MAT x10^3(ANC) 3.33 10*3/uL 1.88-7.09 (test code = 0350235861) IMM GRAN x10^3 (test <0.03 0.00-0.06 code = 3592545310) LYMPH x10^3 (test code 2.41 10*3/uL 1.32-3.29 = 731-0) MONO x10^3 (test code 0.48 10*3/uL 0.33-0.92 = 742-7) EOS x10^3 (test code = 0.06 10*3/uL 0.03-0.39 711-2) BASO x10^3 (test code <0.03 0.01-0.07 = 704-7) Lab Interpretation Abnormal (test code = 13610-1) [facility]ID NOW RAPID TESTING)2020-07-20 00:25:44 Test Item Value Reference Range Interpretation Comments SARS-CoV-2 Rapid ID NOW Not Detected Not Detected (test code = 46051-8) SCOTT (test code = SCOTT) ID NOW COVID-19 Assay is an isothermal nucleic acid amplification test intended for the qualitative detection of nucleic acid from SARS-CoV-2 viral RNA in nasopharyngeal (TEMPORARY HELP AGENCY REFERRAL CLERK) specimens. It is used under Emergency Use [...] indicated. Lab Interpretation Normal (test code = 30970-6) [facility]. METABOLIC PANEL ([id number])2020-07-19 22:47:37 Test Item Value Reference Range Interpretation Comments NA (test code = 139 mmol/L 135-145 9236090578) K (test code = 3.6 mmol/L 3.5-5.0 3624088948) CL (test code = 103 mmol/L 98-108 0598231918) CO2 TOTAL (test code = 27 mmol/L 23-31 8778492038) AGAP (test code = 2-16 5639683876) BUN (test code = 18 mg/dL 7-23 0501198327) GLUCOSE (test code = 98 mg/dL 70-110 6237364880) CREATININE (test code = 0.78 mg/dL 0.50-1.04 4818871513) TOTAL BILI (test code = 0.7 mg/dL 0.1-1.2 1420655031) CALCIUM (test code = 9.9 mg/dL 8.6-10.6 9739606284) T PROTEIN (test code = 7.4 g/dL 6.3-8.2 2857533452) ALBUMIN (test code = 4.3 g/dL 3.5-5.0 2619935645) ALK PHOS (test code = 97 U/L 34-122 4374150630) ALTv (test code = 39 U/L 5-35 H 1742-6) AST(SGOT) (test code = 32 U/L 13-40 3508546005) eGFR (test code = mL/min/1.73m2 0660392890) SCOTT (test code = SCOTT) Association of [...] tests). Lab Interpretation Abnormal (test code = 12027-7) [facility] 22:47:02 Test Item Value Reference Range Interpretation Comments APPEARANCE (test code = Clear Clear 5367470442) COLOR (test code = Yellow Yellow 3410355822) PH (test code = 4.8-8.0 3570875245) SP GRAVITY (test code = 1.003-1.030 6101284484) GLU U QUAL (test code = Normal Normal 9052439287) BLOOD (test code = Negative Negative 6621228820) KETONES (test code = Negative Negative 8061990428) PROTEIN (test code = Negative Negative 2887-8) UROBILIN (test code = Normal Normal 6164897362) BILIRUBIN (test code = Negative Negative 2104464833) NITRITE (test code = Negative Negative 2825876824) LEUK BAILEY (test code = Negative Negative 5764174184) RBC/HPF (test code = See_Comment [Autom ated message] 8137638132) The system [employer] generated this result transmitted ref erence range: 0 - 3 HP F. The reference range was not used to int erpret this result as normal/abnormal . WBC/HPF (test code = See_Comment [Autom ated message] 2475971062) The system [employer] generated this result transmitted ref erence range: 0 - 5 HP F. The reference range was not used to int erpret this result as normal/abnormal . BACTERIA (test code = Negative Negative 9165403829) MUCOUS (test code = Slight Negative LPF A 5510266088) SQ EPITH (test code = HPF 4063894691) Lab Interpretation (test Abnormal code = 34356-7) [facility] 22:46:57 Test Item Value Reference Range Interpretation Comments LIPASE (test code = 5666829998) 277 U/L 0-220 H Lab Interpretation (test code = Abnormal 48853-4) [facility] WITH [id number] 22:37:16 Test Item Value Reference Range Interpretation [...] (test code = 34.9 fL 39.0-49.9 L 21091-8) RDW-CV (test code = 12.0 % 12.0-15.5 788-0) PLT (test code = See_Comment [Automated 777-3) message] The sy stem which generated this result transmitted reference range : 166 - 358 10*3/ ?L. The reference r lenard was not used to interpret this result as normal/abnormal . MPV (test code = 9.7 fL 9.5-12.9 66166-8) NRBC/100 WBC (test See_Comment [Automat ed code = 7187146800) message] The system which generated this result transmitted reference range : 0.0 - 10.0 /100 WBCs. The refer ence range was not u sed to interpret th is result as normal/abnormal . NRBC x10^3 (test code <0.01 See_Comment [Auto mated = 2304311847) message] The s ystem which generated this result transmitted reference range : 10*3/?L. The reference range was not used to interpret this result as normal/abnormal . GRAN MAT (NEUT) % 47.2 % (test code = 770-8) IMM GRAN % (test code 0.40 % = 1091389296) LYMPH % (test code = 43.2 % 736-9) MONO % (test code = 7.5 % 5905-5) EOS % (test code = 1.2 % 713-8) BASO % (test code = 0.5 % 706-2) GRAN MAT x10^3(ANC) 2.69 10*3/uL 1.88-7.09 (test code = 6418185754) IMM GRAN x10^3 (test <0.03 0.00-0.06 code = 2467948105) LYMPH x10^3 (test code 2.46 10*3/uL 1.32-3.29 = 731-0) MONO x10^3 (test code 0.43 10*3/uL 0.33-0.92 = 742-7) EOS x10^3 (test code = 0.07 10*3/uL 0.03-0.39 711-2) BASO x10^3 (test code 0.03 10*3/uL 0.01-0.07 = 704-7) Lab Interpretation Abnormal (test code = 91810-5) [facility]EL[facility] W [id number] 02:46:10Postsurgical changes with anastomoses sutures in the rightcolon.2. Fluid-filled loops of normal caliber mid and distal small bowel may be anonspecific enteritis.3. Previous hernia repair. No recurrent hernia.4. No hydronephrosis.5. No free fluid. RL: 4400AF: 42128 END OF REPORT Ordering Physician: JOSE RODRIGUEZ [...] hernia.4. No hydronephrosis.5. No free fluid.RL: 4400AF: 81696JDH OF [facility] [id number] 01:12:00 Test Item Value Reference Range Interpretation Comments NA (test code = 140 mmol/L 135-145 2231419546) K (test code = 3.7 mmol/L 3.5-5 7158074165) CL (test code = 104 mmol/L 98-108 1171604699) CO2 TOTAL (test code = 26 mmol/L 23-31 0964422221) AGAP (test code = 2-16 2695050398) BUN (test code = 10 mg/dL 7-23 8027508757) GLUCOSE (test code = 99 mg/dL 70-110 8379155138) CREATININE (test code = 0.53 mg/dL 0.5-1.04 3239975111) TOTAL BILI (test code = 0.5 mg/dL 0.1-1.5 1999376248) CALCIUM (test code = 9.7 mg/dL 8.6-10.6 8043295969) T PROTEIN (test code = 8.8 g/dL 6.3-8.2 H 3832711545) ALBUMIN (test code = 4.6 g/dL 3.5-5 5366552428) ALK PHOS (test code = 126 U/L 34-122 H 8729941164) ALTv (test code = 63 U/L 5-35 H 1742-6) AST(SGOT) (test code = 45 U/L 13-40 H 2428237129) eGFR Calculation mL/min/1.73m2 (Non-) (test code = 0808128626) eGFR Calculation mL/min/1.73m2 () (test code = 0875122049) SCOTT (test code = SCOTT) Association of [...] tests). Lab Interpretation Abnormal (test code = 12393-2) [facility], [id number] 01:12:00 Test Item Value Reference Range Interpretation Comments LIPASE (test code = 2691980343) 166 U/L 0-220 Lab Interpretation (test code = Normal 43163-0) [facility]en[facility]inal[facility]2020-01-26 01:09:00 Test Item Value Reference Range Interpretation Comments APPEARANCE (test code = Clear Clear 9487497888) COLOR (test code = Yellow Yellow 5075111773) PH (test code = 4.8-8.0 8124527001) SP GRAVITY (test code = 1.003-1.030 0045463706) GLU U QUAL (test code = Normal Normal 1030149372) BLOOD (test code = Negative Negative 8497494948) KETONES (test code = Negative Negative 0255904701) PROTEIN (test code = Negative Negative 2887-8) UROBILIN (test code = Normal Normal 5715716712) BILIRUBIN (test code = Negative Negative 8188507525) NITRITE (test code = Negative Negative 7718326093) LEUK BAILEY (test code = 25/uL Negative A 4911068955) RBC/HPF (test code = See_Comment [Autom ated message] 1899622336) The system [employer] generated this result transmitted ref erence range: 0 - 3 HP F. The reference range was not used to int erpret this result as normal/abnormal . WBC/HPF (test code = See_Comment [Autom ated message] 4226766354) The system [employer] generated this result transmitted ref erence range: 0 - 5 HP F. The reference range was not used to int erpret this result as normal/abnormal . BACTERIA (test code = Negative Negative 4947153244) MUCOUS (test code = Slight Negative LPF A 2199015922) SQ EPITH (test code = HPF 7107560566) Lab Interpretation (test Abnormal code = 91934-0) [facility] [id number] 00:58:00 Test Item Value Reference Range Interpretation Comments WBC (test code = See_Comment [Automated 90-2) message] The sy stem which generated this [...] (test code = 35.2 fL 39-49.9 L 59324-9) RDW-CV (test code = 12.3 % 12-15.5 788-0) PLT (test code = See_Comment [Automated 777-3) message] The sy stem which generated this result transmitted reference range : 166 - 358 10*3/ ?L. The reference r lenard was not used to interpret this result as normal/abnormal . MPV (test code = 9.3 fL 9.5-12.9 L 81577-7) NRBC/100 WBC (test See_Comment [Automat ed code = 9535252898) message] The system which generated this result transmitted reference range : 0.0 - 10.0 /100 WBCs. The refer ence range was not u sed to interpret th is result as normal/abnormal . NRBC x10^3 (test code <0.01 See_Comment [Auto mated = 8460349420) message] The s ystem which generated this result transmitted reference range : 10*3/?L. The reference range was not used to interpret this result as normal/abnormal . GRAN MAT (NEUT) % 51.0 % (test code = 770-8) IMM GRAN % (test code 0.40 % = 3226865150) LYMPH % (test code = 38.3 % 736-9) MONO % (test code = 7.6 % 5905-5) EOS % (test code = 2.1 % 713-8) BASO % (test code = 0.6 % 706-2) GRAN MAT x10^3(ANC) 2.69 10*3/uL 1.88-7.09 (test code = 4863929936) IMM GRAN x10^3 (test <0.03 0-0.06 code = 4593371709) LYMPH x10^3 (test code 2.02 10*3/uL 1.32-3.29 = 731-0) MONO x10^3 (test code 0.40 10*3/uL 0.33-0.92 = 742-7) EOS x10^3 (test code = 0.11 10*3/uL 0.03-0.39 711-2) BASO x10^3 (test code 0.03 10*3/uL 0.01-0.07 = 704-7) Lab Interpretation Abnormal (test code = 02043-8) [facility] [id number] 00:48:00 Test Item Value Reference Range Interpretation Comments POCT PREG (test code = 1605) negative On board controls acceptable with present C Line (test code = 3574) POCT PREG LOT # (test code = 3575) [id number] POCT PREG TEST DATE (test 10/02/2019 code = 3576) Lab Interpretation (test code = Normal 66552-2) [facility]/ [id number] 05:12:00 Test Item Value Reference Range Interpretation [...] code Urine, Clean Catch = 2795) SCREEN, [id number] 05:00:00 Test Item Value Reference Range Interpretation Comments TEST URINE (BEAKER) (test Negative code = 583) BASIC METABOLIC [id number] 03:20:00 Test Item Value Reference Range Interpretation [...] m DATA TO CALCULA TE ESTIMATED GFR. [id number] 03:08:00 Test Item Value Reference Range Interpretation Comments MAGNESIUM (BEAKER) 2.0 mg/dL 1.6-2.6 Specimen slightly (test code = 627) hemolyzed [id number] 03:08:00 Test Item Value Reference Range Interpretation Comments PHOSPHORUS (BEAKER) 2.6 mg/dL 2.3-4.7 Specimen slightly (test code = 604) hemolyzed HEPATIC FUNCTION [id number] 03:08:00 Test Item Value Reference Range Interpretation [...] 347) hemolyzed CBC W/PLT COUNT & AUTO [id number] 02:54:00 Test Item Value Reference Range Interpretation [...]
[2021-04-29 19:41] LABS: Absolute Lymphocytes (CBC) 0.7 K/uL (0.7-4.9); Hematocrit 27.5 % (36.0-45.0); Lymphocytes % 20.9 % (15.3-44.8); MPV 7.4 fL (7.6-11.3); RBC Red Blood Cell Count 3.35 M/uL (3.86-4.86)
[2021-04-29] MEDS ORDERED: PROMETHAZINE INJ 25 MG/ML AMP ONE (19:58)
[2021-04-29] MEDS ORDERED: NA CHLORIDE 0.9% 1,000 ML ONE (19:59)
[2021-04-29] MEDS ORDERED: MORPHINE 4 MG/ML SYR ONE ×2 (19:59→20:56)
[2021-04-29 20:05] LABS: ALT/SGPT 39 U/L (12-78); AST/SGOT 15 U/L (15-37); Albumin 3.2 g/dL (3.4-5.0); Alkaline Phosphatase 146 U/L (45-117); BUN Blood Urea Nitrogen 7 mg/dL (7-18); Bicarbonate 28 mmol/L (21-32); Bilirubin Total 0.2 mg/dL (0.2-1.0); Glucose Level 149 mg/dL (74-106); Lipase 118 U/L (73-393); Potassium 3.4 mmol/L (3.5-5.1); Protein, Total 7.3 g/dL (6.4-8.2); Sodium Level 141 mmol/L (136-145)
[2021-04-29 20:11] LABS: Bilirubin Direct < 0.1 mg/dL (0-0.2)
[2021-04-29 20:18] LABS: Platelet Estimate DECR; White Blood Cell Scan OK (OK)
[2021-04-29 20:19] LABS: Blood Morphology Comment NOT SEEN (NOT SEEN)
--- NOTE | 2021-04-29 20:27 | RAD REPORT ---
EXAM DESCRIPTION: CT - Abdomen Pelvis Wo Contrast - 04/29/2021 8:09 pm CLINICAL HISTORY: Abdominal pain. ABD PAIN COMPARISON: Abdomen Pelvis W Contrast dated 04/24/2021 TECHNIQUE: CT imaging of the abdomen and pelvis was performed without contrast. Solid organ, bowel a nd vascular assessment is limited due to lack of IV and oral contrast. All CT scans are performed using dose optimization technique as appropriate and may include automated exposure control or mA/KV adjustment according to patient size. FINDINGS: The lower lung carey are clear.Cholecystectomy clips. The liver, spleen, pancreas, adrenal glands and kidneys are within normal limits for a limited non-co ntrast examination. No bowel obstruction, free air, free fluid or abscess. Postsurgical changes are present involving th e right colon. The osseous structures are within normal limits. IMPRESSION: No acute intra-abdominal or pelvic findings. A limited non-contrast examination was performed as detailed.
--- NOTE | 2021-04-29 21:32 | ER ---
Nurse's Notes [facility] Name: Mrais Arias Age: 40 yrs Sex: Female : 1980 Arrival Date: 04/29/2021 Time: 18:32 Bed 14 Private MD: Diagnosis: Upper abdominal pain, unspecified Presentation: 04/29 18:46 Chief complaint: Patient states: "I was discharged from here yesterday and this morning ab2 I have generalized abdominal pain and abdominal swelling and N/V/D.". Coronavirus screen: Vaccine status: Patient reports receiving the 2nd dose of the covid vaccine. Client denies travel out of the [place] in the last 14 days. At this time, the client does not indicate any symptoms associated with coronavirus-19. Ebola Screen: Patient negative for fever greater than or equal to 101.5 degrees Fahrenheit, and additional compatible Ebola Virus Disease symptoms Patient denies exposure to infectious person. Patient denies travel to an Ebola-affected area in the 21 days before illness onset. No symptoms or risks identified at this time. Initial Sepsis Screen: Does the patient meet any 2 criteria? No. Patient's initial sepsis screen is negative. Does the patient have a suspected source of infection? No. Patient's initial sepsis screen is negative. Risk Assessment: Do you want to hurt yourself or someone else? Patient reports no desire to harm self or others. Onset of symptoms is unknown. 18:46 Method Of Arrival: Wheelchair ab2 18:46 Acuity: CELESTE 3 ab2 Triage Assessment: 19:28 General: Appears distressed, ill, obese. Pain: Complains of pain in abdomen. 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 - Social history:: Smoking status: Patient denies any tobacco usage or history of. Screenin:50 Abuse screen: Denies threats or abuse. Denies injuries from another. Nutritional ab2 screening: No deficits noted. Tuberculosis screening: No symptoms or risk factors identified. Fall Risk None identified. Assessment: 18:48 General: Appears in no apparent distress. uncomfortable, Behavior is calm, cooperative, ab2 appropriate for age. Pain: Complains of pain in abdomen Pain currently is 10 out of 10 on a pain scale. Quality of pain is described as aching, pressure. Neuro: Level of Consciousness is awake, alert, obeys commands, Oriented to person, place, time, situation, Appropriate for age Anchorer are equal bilaterally Moves all extremities. Gait is steady, Speech is normal. Cardiovascular: No deficits noted. Denies chest pain, shortness of breath, Heart tones S1 S2 present Patient's skin is warm and dry. Chest pain is denied. Respiratory: No deficits noted. Airway is patent Respiratory effort is even, unlabored, Respiratory pattern is regular, symmetrical. GI: Abdomen is round Bowel sounds present X 4 quads. Abdomen is tender to palpation X 4 quads. Guarding noted X 4 quads. : No deficits noted. No signs and/or symptoms were reported regarding the genitourinary system. EENT: No deficits noted. No signs and/or symptoms were reported regarding the EENT system. Derm: No deficits noted. No signs and/or symptoms reported regarding the dermatologic system. Skin is intact, is healthy with good turgor, Skin is pink, warm \\T\\ dry. Musculoskeletal: No deficits noted. No signs and/or symptoms reported regarding the musculoskeletal system. Vital Signs: 18:46 BP 123 / 77; Pulse 110; Resp 16; Temp 97.5(TE); Pulse Ox 98% on R/A; Weight 90.72 kg; ab2 Height 5 ft. 2 in. (157.48 cm); Pain 10/10; 19:30 BP 115 / 69 LA Supine (auto/reg); Pulse 98 MON; Resp 17 S; Temp 97.9; Pulse Ox 98% on sv1 R/A; Pain 10/10; 21:42 BP 115 / 73 LA Sitting (auto/reg); Pulse 86 MON; Resp 20 S; Pulse Ox 97% on R/A; Pain sv1 4/10; 18:46 Body Mass Index 36.58 (90.72 kg, 157.48 cm) ab2 ED Course: 18:32 Patient arrived in ED. rg4 18:46 Geronimo Lozada is Primary Nurse. ab2 18:48 Triage completed. ab2 18:50 Arm band placed on right wrist. ab2 18:50 Patient has correct armband on for positive identification. Bed in low position. Call ab2 light in reach. Side rails up X2. 18:50 No provider procedures requiring assistance completed. ab2 18:52 Elton Swain DO is Attending Physician. ms3 19:27 Basic Metabolic Panel Sent. sv1 19:28 CBC with Diff Sent. sv1 19:28 Hepatic Function Sent. sv1 19:28 Lipase Sent. sv1 19:34 Rosemary Weaver FNP-C is PHCP. kb 19:34 Elton Swain DO is Attending Physician. kb 19:34 Dane Velez MD is Attending Physician. kb 20:09 Abdomen In Process Unspecified. EDMS 21:44 IV discontinued. sv1 Administered Medications: 20:06 Drug: Phenergan (promethazine) 12.5 mg Route: IVP; Site: right hand; sv1 20:56 Follow up: Response: Nausea is decreased sv1 20:06 Drug: morphine 4 mg Route: IVP; Site: right hand; sv1 20:56 Follow up: Response: No adverse reaction; Pain is unchanged, physician notified sv1 20:22 Drug: NS 0.9% 1000 ml Route: IV; Rate: 1000 ml; Site: right hand; sv1 20:56 Drug: morphine 4 mg Route: IVP; Site: right hand; sv1 Outcome: 21:32 Discharge ordered by MD. kb 21:42 Discharged to home ambulatory, with family. sv1 21:42 Condition: improved 21:42 Discharge instructions given to patient, family. 21:44 Patient left the ED. sv1 Signatures: Dispatcher [employer] EDMS Rosemary Weaver FNP-C FNP-Ckb Garcia, Rubi rg4 Elton Swain DO DO ms3 Rodney Chau RN RN sv1 Geronimo Lozada ab2
--- NOTE | 2021-04-29 21:32 | EDPHYS ---
Physician Documentation [facility] Name: Maris Arias Age: 40 yrs Sex: Female : 1980 Arrival Date: 04/29/2021 Time: 18:32 Bed 14 Private MD: ED Physician Dane Velez HPI: 04/29 23:50 This 40 yrs old Female presents to ER via Wheelchair with complaints of Abdominal Pain, kb Abdominal Swelling. 23:50 The patient presents with abdominal pain in the upper abdomen. Onset: The kb symptoms/episode began/occurred 2 day(s) ago. The symptoms do not radiate. Associated signs and symptoms: Pertinent positives: nausea and vomiting. The symptoms are described as constant. Modifying factors: The symptoms are alleviated by nothing, the symptoms are aggravated by nothing. Severity of pain: At its worst the pain was moderate in the emergency department the pain is unchanged. The patient has experienced similar episodes in the past. The patient has not recently seen a physician. Pt reports she was admitted on Saturday for diarrhea. States that got better, but she developed abd pain while here. Was discharged yesterday with the pain. Today the pain was worse, also having nausea and vomiting so she came back.. 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 - Social history:: Smoking status: Patient denies any tobacco usage or history of. ROS: 23:49 Constitutional: Negative for fever, chills, and weight loss. kb 23:49 Abdomen/GI: Positive for abdominal pain, nausea and vomiting. 23:49 All other systems are negative. Exam: 23:49 Constitutional: This is a well developed, well nourished patient who is awake, alert, kb and in no acute distress. Head/Face: Normocephalic, atraumatic. ENT: Moist Mucous membranes Cardiovascular: Regular rate and rhythm with a normal S1 and S2. No gallops, murmurs, or rubs. No pulse deficits. Respiratory: Respirations even and unlabored. No increased work of breathing. Talking in full sentences Skin: Warm, dry with normal turgor. Normal color. MS/ Extremity: Pulses equal, no cyanosis. Neurovascular intact. Full, normal range of motion. Neuro: Awake and alert, GCS 15, oriented to person, place, time, and situation. Moves all extremities. Normal gait. Psych: Awake, alert, with orientation to person, place and time. Behavior, mood, and affect are within normal limits. 23:49 Abdomen/GI: Inspection: abdomen appears normal, Bowel sounds: normal, Palpation: soft, in all quadrants, mild abdominal tenderness, in the right upper quadrant. Vital Signs: 18:46 BP 123 / 77; Pulse 110; Resp 16; Temp 97.5(TE); Pulse Ox 98% on R/A; Weight 90.72 kg; ab2 Height 5 ft. 2 in. (157.48 cm); Pain 10/10; 19:30 BP 115 / 69 LA Supine (auto/reg); Pulse 98 MON; Resp 17 S; Temp 97.9; Pulse Ox 98% on sv1 R/A; Pain 10/10; 21:42 BP 115 / 73 LA Sitting (auto/reg); Pulse 86 MON; Resp 20 S; Pulse Ox 97% on R/A; Pain sv1 4/10; 18:46 Body Mass Index 36.58 (90.72 kg, 157.48 cm) ab2 MDM: 18:53 Patient medically screened. ms3 20:49 Data reviewed: vital signs, nurses notes. Data interpreted: Pulse oximetry: on room air kb is 98 %. Interpretation: normal. 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 04/29 19:02 Order name: Basic Metabolic Panel; Complete Time: 20:14 ms3 04/29 19:02 Order name: CBC with Diff; Complete Time: 20:25 ms3 04/29 19:02 Order name: Hepatic Function; Complete Time: 20:14 ms3 04/29 19:02 Order name: Lipase; Complete Time: 20:14 ms3 04/29 20:17 Order name: CBC Smear Scan; Complete Time: 20:25 EDMS 04/29 19:02 Order name: IV Saline Lock; Complete Time: 19:26 ms3 04/29 19:02 Order name: Labs collected and sent; Complete Time: 19:26 ms3 04/29 20:08 Order name: Abdomen ; Complete Time: 20:29 EDMS Administered Medications: 20:06 Drug: Phenergan (promethazine) 12.5 mg Route: IVP; Site: right hand; sv1 20:56 Follow up: Response: Nausea is decreased sv1 20:06 Drug: morphine 4 mg Route: IVP; Site: right hand; sv1 20:56 Follow up: Response: No adverse reaction; Pain is unchanged, physician notified sv1 20:22 Drug: NS 0.9% 1000 ml Route: IV; Rate: 1000 ml; Site: right hand; sv1 20:56 Drug: morphine 4 mg Route: IVP; Site: right hand; sv1 Disposition: 23:09 Co-signature as Attending Physician, Dane Velez MD. 7 Disposition Summary: 04/29/21 21:32 Discharge Ordered Location: Home kb Condition: Stable kb Diagnosis - Upper abdominal pain, unspecified kb Followup: kb - With: Emergency Department - When: As needed - Reason: Worsening of condition Followup: kb - With: Private Physician - When: 2 - 3 days - Reason: Recheck today's complaints, Continuance of care, Re-evaluation by your physician Discharge Instructions: - Discharge Summary Sheet kb - Abdominal Pain, Adult, [id number] kb Forms: - Medication Reconciliation Form kb - Thank You Letter kb - Antibiotic Education kb - Prescription Opioid Use kb Prescriptions: - dicyclomine 20 mg Oral Tablet - take 1 tablet by ORAL route 4 times per day As needed; 20 tablet; Refills: 0, kb Product Selection Permitted Signatures: Dispatcher [employer] EDMS Rosemary Weaver FNP-C FNP-Elton Matias DO DO ms3 Dane Velez MD MD 7 Rodney Chau, RN RN sv1 Geronimo Lozada ab2 Corrections: (The following items were deleted from the chart) 20:08 19:35 Abdomen Pelvis W [id number] ordered. EDMS EDMS
[2021-04-29 21:56] VITALS: TEMP 97.9
[2021-04-29 21:58] VITALS: BP 115/73; O2SAT 97
== END 2021-04-29 21:44 | disposition home or self-care (01) ==
LOC: ER 18:30
DX: R10.10 Upper abdominal pain, unspecified (principal); R11.2 Nausea with vomiting, unspecified
CPT/HCPCS: 85025; 80048; 36415; 80076; 83690; 74176; 96375; 96374; 99283; J2550; J7030

== ENCOUNTER 2021-05-15 20:13 | Emergency (ER) | payer BC ==
--- OUTSIDE RECORDS SUMMARY | 2021-05-15 20:15 | XMS REPORT | Clinical Summary ---
:1980 Author Organization [facility] MD [facility] Address [facility] [place] [address] Care Team Providers Name Role Phone Juwan Guerrero MD Primary Care Provider Allergies Not on File Medications Not on file Active Problems Not on file Encounters Date Type Specialty Care Team Description 03/13/2021 Lab Requisition [facility] MD Witson, Anne S., MD 02/28/2021 Ancillary Procedure Radiology Juwan Guerrero M D Cancer 02/20/2021 Travel after 05/15/2020 Social History Tobacco Use Types Packs/Day Years Used Date Never Assessed Sex Assigned at Date Recorded Female 02/20/2021 6:08 PM [employer] Job Start Date Occupation Industry Not on [...] 9:06 Cancer Res ults for this AM [employer] procedure are i n the results section. after 05/15/2020 Results Pathology Outside Interpretation (02/13/2021) Materials Accession#, Stained, Block, Unstained Collected Receiv ed [facility] Received A. [id number], 24 SS, 5 BLOCKS, 0 USS 02/13/2021 022 Diagnosis Lymph node (left upper neck), excisional biopsy: [facility] Electronically signed by Sivan alcantar [...] but there are also follicular areas (20-30% [facility] ). Both the diffuse and [...] Note: H&E Disclaimer "Some tests reported here [facility] may have been developed and performance characteristics determined by [facility]. These tests have not been specifically cleared or approved by the [place]. Food and Drug Administration. If applicable, controls were reviewed and showed appropriate reactivity." Specimen Tissue Performing Organization Address City/State/ZIP Code Phon e Number [facility] [place] [address] [address] S[place] (01/30/2021 9:06 AM [employer]) Specimen Narrative Systemgenerated, Documentation - 021 9:06 AM [employer] Study acquired at another institution. For comparison only. No MD Tin originated interpretation requested or a vailable. 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
--- OUTSIDE RECORDS SUMMARY | 2021-05-15 20:19 | XMS REPORT | Continuity of Care Document ---
:1980 Author Organization [facility] t Address [address] [place] [address] Care Team Providers Name Role Phone [phone] Primary Care Physician Unavailable SYSTEM, NOT IN Attending Clinician Unavailable HARLAN Attending Clinician Unavailable PATRICIA Attending Clinician Unavailable Marc Hill MD Attending Clinician Jose Alfredo BRYAN S. Attending Clinician Ricki Ardon MD Attending Clinician Ricki ARDON Attending Clinician Unavailable MARICHUYONJEANNIE Attending Clinician Unavailable AGA, W Attending Clinician Unavailable Mariam LEE Attending Clinician Unavailable Mariam Lee MD Attending Clinician LAB90 Attending Clinician Unavailable Harlan FIRE PROTECTION SPECIALIST-C Attending Clinician Job FELIX, T Attending Clinician Unavailable Darien FIRE PROTECTION SPECIALIST Attending Clinician Abigail FIRE PROTECTION SPECIALIST Attending Clinician ABIGAIL Attending Clinician Unavailable Doctor [...] Date Expiration Date S rahul [place] - [id number] 2016 OUT OF STATE 00:00:00 BCBS 2 [id number] 2020 00:00:00 BLUE CROSS BLUE [id number] 2020 MD Yan molina [place] PPO 00:00:00 [id number] 03/2020-[address], [place] [address]XIT Problems Condition Condition Condition Status Onset Resolution [...] abdominal 1-03 ity of pain pain 00:00: [address] Branch Chills Chills Disease Active 2018-03 [...] of cholelithi cholelithi 00:00: g of this [place] asis asis 00 note Medical might be Branch different from the original. Added automatic ally from request for surgery [id number] Abdominal Abdominal Disease Active Uni vers pain pain 6-28 ity of 00:00: [place] 00 Medical Branch Crohn Crohn Disease Active Univers disease disease 5-04 ity of 00:00: [place] 00 Medical Branch Generalize Generalize Disease Active [...] (BMI 2-12 ity of 30-39.9) 30-39.9) 00:00: [place] 00 Medical Branch Morbid Morbid Disease Active Univers obesity obesity 2-01 ity of with body with body 00[place] mass index mass index 00 Me dical of 50 or of 50 or Branch higher higher Allergies, Adverse Reactions, Alerts Allergy Allergy Status Severity Reaction(s) Onset Inactive Treating Comm ents Source Name Type Date Date Clinician NO KNOWN Allergy Active [facility] NO KNOWN Drug Active Univers ALLERGIE Class ity of S [place] [facility] Social History Social Habit Start Date Stop Date Quantity Comments Source History SDOH Karolina polanco Alcohol Frequency History SDOH Karolina polanco Alcohol Std Drinks History SDOH Karolina Hunter ld Alcohol Binge History of Karolina Galicia tobacco use Exposure to Yes University [facility]-CoV-2 [place] [facility] (event) Branch Alcohol intake 2021-01-25 2021-01-25 Current drinker Laura Galicia 00:00:00 00:00:00 of alcohol (finding) Alcohol Comment 2021-01-25 2021-01-25 social Karolina Se ybold 00:00:00 00:00:00 Tobacco Comment 2021-01-25 2021-01-25 vape Karolina Se ybold 00:00:00 00:00:00 Tobacco use and 2021-01-18 2021-01-18 Smokeless tobacco Ke lsjarrod Seybold exposure 00:00:00 00:00:00 non-user History SDKY 2018-12-03 2018-12-03 5 University o f Financial 00:00:00 00:00:00 [place] [facility] History SDKY Food 2018-12-03 2018-12-03 1 Univers ity of Worry 00:00:00 00:00:00 [place] [facility] History SDKY Food 2018-12-03 2018-12-03 1 Univers ity of Scarcity 00:00:00 00:00:00 [place] [facility] History SDKY 2018-12-03 2018-12-03 2 University o f Transport Med 00:00:00 00:00:00 [place] Medic al [facility] History SDKY 2018-12-03 2018-12-03 2 University o f Transport Non-Med 00:00:00 00:00:00 [place] M edical Branch History SDKY 2018-12-02 2018-12-02 14 University o f Education 00:00:00 00:00:00 [facility] Sex Assigned At [birth year] F MD Christiansen on 00:00:00 00:00:00 Smoking Status Start Date Stop Date Source Smokes tobacco daily 2021-01-18 00:00:00 Karolina Seybold Never smoker [facility] Current some day smoker 2019-01-05 00:00:00 [facility] Medications Ordered Filled Start Stop Current Ordering Indication Dosage Frequency Signature Comments Components Source Medication Medication Date Date Medication? Clinician (SIG) Name Name Ustekinumab 2020-03 Yes Inject Corutney ey (STELARA 1-24 into the Seybold SC) 11:16: skin Every 33 8 Weeks Ustekinumab 2020-03 Yes Inject Courtney ey 45 MG/0.5ML 1-24 into the Seyb old subcutaneou 11:16: skin s Solution 33 Prefilled Syringe Estrogens 2020-03 Yes [id number] Take one Karolina Conjugated 1-24 tablet Seybold (Premarin) 00:00: daily 0.3 MG oral 00 Tablet Ustekinumab 2020-03 Yes Inject Courtney ey 45 MG/0.5ML 1-17 into the Seyb old subcutaneou 10:59: skin s Solution 00 Prefilled Syringe Ustekinumab 2020-03 Yes Inject Courtney ey (STELARA 1-17 into the Seybold SC) 10:57: skin Every 52 8 Weeks hydrOXYzine 2020-03 Yes [id number] 10mg Q.[id number] Take 1 Karolina HCl 10 MG 1-17 [id number] tablet (10 Seybold oral Tablet 00:00: 3D mg total) 00 by mouth 3 times daily as needed for itching or anxiety Fluoxetine 2020-03 Yes [id number] 40mg Take 1 K elsey HCl 40 MG 1-17 capsule Seybold oral 00:00: (40 mg Capsule 00 total) by mouth daily hydrOXYzine 2020-03 Yes [id number] 10mg Q.[id number] Take 1 Karolina HCl 10 MG 1-17 [id number] tablet (10 Seybold oral Tablet 00:00: 3D mg total) 00 by mouth 3 times daily as needed for itching or anxiety Fluoxetine 2020-03 Yes [id number] 40mg Take 1 K elsey HCl 40 MG 1-17 capsule Seybold oral 00:00: (40 mg Capsule 00 total) by mouth daily HYDROcodone 2020- No 1{tbl} 1 tablet, Univers -acetaminop 10-02 Oral, ity of hen (NORCO 07:45: 06:47 ONCE, 1 Gaurang as 5) 5-325 mg 00 :00 dose, Sun Med ical tablet 1 10/02/20 at [place] tablet 0245, LEWIS dicyclomine 2020- No 20mg [...] Sun Medica l NaCl 0.9% 10/02/20 at [facility] h (NS) 50 mL 0145, 50 piggyback mL ondansetron 2020- No 4mg 4 mg, Slow Univers (ZOFRAN 10-02 IV Push, ity of (PF)) 05:15: 04:37 ONCE, 1 [place] injection 4 00 :00 dose, Sun Med ical mg 10/02/20 at Branch 0015, LEWIS Ustekinumab Yes inject Univ ers 45 mg/0.5 8-01 under the ity o f mL SC 04:11: skin. [place] injection [address] [place] [address] Ustekinumab Yes inject Univ ers 45 mg/0.5 8-01 under the ity o f mL SC 04:11: skin. [place] injection [address] [place] [address] Ustekinumab Yes inject Univ ers 45 mg/0.5 8-01 under the ity o f mL SC 04:11: skin. [place] injection [address] [place] [address] Ustekinumab Yes inject Univ ers 45 mg/0.5 8-01 under the ity o f mL SC 04:11: skin. [place] injection [address] [place] [address] Ustekinumab Yes inject Univ ers 45 mg/0.5 8-01 under the ity o f mL SC 04:11: skin. [place] injection 16 Medical Branch Ustekinumab Yes inject Univ ers 45 mg/0.5 8-01 under the ity o f mL SC 04:11: skin. [place] injection 16 Medical Branch proMETHazin Yes [id number] 25mg Take 1 Univers e 25 mg 8-01 tablet by ity of tablet 00:00: mouth [place] 00 every 6 Medical (six) Branch hours as needed for N/V unresponsi ve to Ondansetro n. proMETHazin Yes [id number] 25mg Take 1 Univers e 25 mg 8-01 tablet by ity of tablet 00:00: mouth [place] 00 every 6 Medical (six) Branch hours as needed for N/V unresponsi ve to Ondansetro n. proMETHazin Yes [id number] 25mg Take 1 Univers e 25 mg 8-01 tablet by ity of tablet 00:00: mouth [place] 00 every 6 Medical (six) Branch hours as needed for N/V unresponsi ve to Ondansetro n. proMETHazin Yes [id number] 25mg Take 1 Univers e 25 mg 8-01 tablet by ity of tablet 00:00: mouth [place] 00 every 6 Medical (six) Branch hours as needed for N/V unresponsi ve to Ondansetro n. proMETHazin Yes [id number] 25mg Take 1 Univers e 25 mg 8-01 tablet by ity of tablet 00:00: mouth [place] 00 every 6 Medical (six) Branch hours as needed for N/V unresponsi ve to Ondansetro n. proMETHazin Yes [id number] 25mg Take 1 Univers e 25 mg [...] 07/19/20 at 1730, STAT ondansetron 0 Yes [id number] 4mg Take 1 Univers (ZOFRAN 5-18 tablet by ity of ODT) 4 mg 00:00: mouth [place] disintegrat 00 every 8 Medic al ing tablet (eight) Branch hours as needed for Nausea and Vomiting (N/V). ondansetron Yes [id number] 4mg Take 1 Univers (ZOFRAN 5-18 tablet by ity of ODT) 4 mg 00:00: mouth [place] disintegrat 00 every 8 Medic al ing tablet (eight) Branch hours as needed for Nausea and Vomiting (N/V). ondansetron Yes [id number] 4mg Take 1 Univers (ZOFRAN 5-18 tablet by ity of ODT) 4 mg 00:00: mouth [place] disintegrat 00 every 8 Medic al ing tablet (eight) Branch hours as needed for Nausea and Vomiting (N/V). ondansetron 2020-0 Yes [id number] 4mg Take 1 Univers (ZOFRAN 5-18 tablet by ity of ODT) 4 mg 00:00: mouth [place] disintegrat 00 every 8 Medic al ing tablet (eight) Branch hours as needed for Nausea and Vomiting (N/V). ondansetron 2020-0 Yes [id number] 4mg Take 1 Univers (ZOFRAN 5-18 tablet by ity of ODT) 4 mg 00:00: mouth [place] disintegrat 00 every 8 Medic al ing tablet (eight) Branch hours as needed for Nausea and Vomiting (N/V). ondansetron 2021-0 Yes [id number] 4mg Take 1 Univers (ZOFRAN 5-18 tablet by ity of ODT) 4 mg 00:00: mouth [place] disintegrat 00 every 8 Medic al ing tablet (eight) Branch hours as needed for Nausea and Vomiting (N/V). ondansetron 2021-0 Yes [id number] 4mg Take 1 Univers (ZOFRAN 5-18 tablet [...] 4-06 by mouth. ity of capsule 00:00: [place] [facility] FLUoxetine 2021-0 Yes 20mg Take 20 mg U nivers 20 mg 4-06 by mouth. ity of capsule 00:00: [place] [facility] FLUoxetine 2021-0 Yes 20mg Take 20 mg U nivers 20 mg 4-06 by mouth. ity of capsule 00:00: [place] [facility] FLUoxetine 2021-0 Yes 20mg Take 20 mg U nivers 20 mg 4-06 by mouth. ity of capsule 00:00: [place] [facility] FLUoxetine 2021-0 Yes 20mg Take 20 mg U nivers 20 mg 4-06 by mouth. ity of capsule 00:00: [place] [facility] FLUoxetine 2021-0 Yes 20mg Take 20 mg U nivers 20 mg 4-06 by mouth. ity of capsule 00:00: [place] 00 [facility] Fluoxetine Yes [id number] 20mg Take 1 K elsey HCl 20 MG 4-06 capsule Seybold oral 00:00: (20 mg Capsule 00 total) by mouth daily Fluoxetine Yes 20mg Take 20 mg K elsey HCl 20 MG 4-06 by mouth Seybol d oral 00:00: Capsule 00 Fluoxetine Yes [id number] 20mg Take 1 K elsey HCl 20 MG 4-06 capsule Seybold oral 00:00: (20 mg Capsule 00 total) by mouth daily lactobacill Yes [id number] 1{tbl} Take 1 Univers us 5-30 tablet by ity of acidophilus 00:00: mouth 2 Gaurang as 25 million 00 (two) Medical cell -100 times Branch mg captab daily. lactobacill Yes [id number] 1{tbl} Take 1 Univers us 5-30 tablet by ity of acidophilus 00:00: mouth 2 Gaurang as 25 million 00 (two) Medical cell -100 times Branch mg captab daily. lactobacill Yes [id number] 1{tbl} Take 1 Univers us 5-30 tablet by ity of acidophilus 00:00: mouth 2 Gaurang as 25 million 00 (two) Medical cell -100 times Branch mg captab daily. lactobacill 2020- No [id number] 1{tbl} Take 1 Univers us 5-30 07-31 [...] ity of mg 03:15: 02:07 ONCE, 1 [place] 00 :00 dose, Sat Medical 03/28/19 at [...] Branch 2014, STAT traMADol 50 2020-0 Yes [id number] 50mg Take 1 Univers mg tablet 1-25 tablet by ity o f 00:00: mouth [place] 00 every 6 Medical (six) Branch hours as needed for Pain (scale 4-6). ondansetron 2020-0 Yes [id number] 8mg Take 1 Univers (ZOFRAN 1-25 tablet by ity of ODT) 8 mg 00:00: mouth [place] disintegrat 00 every 8 Medic al ing tablet (eight) Branch hours as needed for Nausea and Vomiting (N/V). traMADol 50 2020-0 Yes [id number] 50mg Take 1 Univers mg tablet 1-25 tablet by ity o f 00:00: mouth [place] 00 every 6 Medical (six) Branch hours as needed for Pain (scale 4-6). ondansetron 2020-0 Yes [id number] 8mg Take 1 Univers (ZOFRAN 1-25 tablet by ity of ODT) 8 mg 00:00: mouth [place] disintegrat 00 every 8 Medic al ing tablet (eight) Branch hours as needed for Nausea and Vomiting (N/V). traMADol 50 2020-0 Yes [id number] 50mg Take 1 Univers mg tablet 1-25 tablet by ity o f 00:00: mouth [place] 00 every 6 Medical (six) Branch hours as needed for Pain (scale 4-6). ondansetron Yes [id number] 8mg Take 1 Univers (ZOFRAN 1-25 tablet by ity of ODT) 8 mg 00:00: mouth [place] disintegrat 00 every 8 Medic al ing tablet (eight) Branch hours as needed for Nausea and Vomiting (N/V). traMADol 50 Yes [id number] 50mg Take 1 Univers mg tablet 1-25 tablet by ity o f 00:00: mouth [place] 00 every 6 Medical (six) Branch hours as needed for Pain (scale 4-6). traMADol 50 2020- No [id number] 50mg Take 1 Univers mg tablet 1-25 07-31 tablet by ity of 00:00: 00:00 mouth [place] 00 :00 every 6 Medical (six) Branch hours as needed for Pain (scale 4-6). ondansetron 2020- No [id number] 8mg Take 1 Univers (ZOFRAN 1-25 05-18 [...] saturation in 2021-01-25 17:11:00 98 /min Karolina Balseybold Arterial blood by Pulse oximetry Systolic blood [...] Center Heart rate 2020-11-02 17:28:00 80 /min [facility] Respiratory rate 2020-11-02 17:28:00 20 /min Univ ersity [facility] [place] [facility] Body height 2020-11-02 17:28:00 157.5 cm [facility] [place] [facility] Body weight 2020-11-02 17:28:00 90.719 kg [facility] [place] [facility] BMI 2020-11-02 17:28:00 36.58 kg/m2 Universi ty [facility] [place] [facility] Oxygen saturation in 2020-11-02 17:28:00 99 /min University of Arterial blood by [place] Medi parth Pulse oximetry Branch Systolic blood 2020-10-02 04:23:00 124 mm[Hg] Univer sity of pressure [place] [facility] Diastolic blood 2020-10-02 04:23:00 86 mm[Hg] Unive rsity of pressure [place] [facility] Heart rate 2020-10-02 04:23:00 76 /min [facility]i ty [facility] [place] [facility] Respiratory rate 2020-10-02 04:23:00 17 /min Univ ersity of [place] [facility] Oxygen saturation in 2020-10-02 04:23:00 96 /min University of Arterial blood by [facility] parth Pulse oximetry Branch Body temperature 2020-10-02 03:27:00 37.11 Zulma Univ ersity of [place] [facility] Body height 2020-10-02 03:27:00 157.5 cm [facility]i [facility] [place] [facility] Body weight 2020-10-02 03:27:00 91.173 kg [facility]i [facility] [place] [facility] BMI 2020-10-02 03:27:00 36.76 kg/m2 Universi ty [facility] [place] [facility] Systolic blood 2020-07-20 00:00:00 144 mm[Hg] Univer sity of pressure [place] [facility] Diastolic blood 2020-07-20 00:00:00 90 mm[Hg] Unive rsity of pressure [place] [facility] Heart rate 2020-07-20 00:00:00 69 /min [facility]i [facility] [place] [facility] Respiratory rate 2020-07-20 00:00:00 18 /min Univ ersity of [place] [facility] Oxygen saturation in 2020-07-20 00:00:00 95 /min University of Arterial blood by [facility] parth Pulse oximetry Branch Body temperature 2020-07-19 21:57:00 37.22 Zulma Univ ersity of [place] [facility] Body weight 2020-07-19 21:57:00 99.338 kg [facility] BMI 2020-07-19 21:57:00 40.06 kg/m2 [facility] Systolic blood 2019-03-29 03:00:00 112 mm[Hg] Univer sity of pressure [facility] Diastolic blood 2019-03-29 03:00:00 66 mm[Hg] Unive [facility] Heart rate 2019-03-29 03:00:00 76 /min [facility] Respiratory rate 2019-03-29 03:00:00 16 /min [facility] Oxygen saturation in 2019-03-29 03:00:00 98 /min [facility] Arterial blood by [facility] Pulse oximetry [place] Body temperature 2019-03-29 00:03:00 36.39 Zulma [facility] Body height 2019-03-29 00:03:00 157.5 cm [facility] Body weight 2019-03-29 00:03:00 99.791 kg [facility] BMI 2019-03-29 00:03:00 40.24 kg/m2 [facility] Procedures Procedure Date / Time Performing Clinician Source Performed PATHOLOGY OUTSIDE 2021-02-13 00:00:00 Miranda Veliz MD Andleo n INTERPRETATION OSI CT SFT TISS NECK 2021-01-30 15:06:00 Juwan Ardon MD nderson ASSIGNMENT OF BENEFITS 2020-11-02 16:11:47 [facility] [place] [facility] LIPASE 2020-10-02 04:35:00 Jose Rodriguez [facility] COMP. METABOLIC PANEL 2020-10-02 04:35:00 Jose Rodriguez [facility] ([id number]) [facility] CBC WITH DIFF 2020-10-02 04:35:00 Jose Rodriguez [facility] URINALYSIS 2020-10-02 04:32:00 Jose Rodriguez [facility] CONSENT/REFUSAL FOR 2020-10-02 03:12:32 Doctor Unassigned, [facility] DIAGNOSIS AND TREATMENT [place] [facility] COVID-19 (ID NOW RAPID 2020-07-20 00:02:00 Zen Paz [facility] TESTING) Medical Branch LIPASE 2020-07-19 22:26:[address] [facility] COMP. METABOLIC PANEL 2020-07-19 22:26:00 Zen Paz [facility] ([id number]) Medical Branch CBC WITH DIFF 2020-07-19 22:26:[address] [facility] URINALYSIS 2020-07-19 22:26:[address] [facility] NOTICE OF PRIVACY 2020-07-19 21:38:41 Doctor Unanaa, [facility] [place] [facility] CONSENT/REFUSAL FOR 2020-07-19 21:37:52 Doctor Rosie [facility] DIAGNOSIS AND TREATMENT [place] [facility] CT ABDOMEN PELVIS W 2019-03-29 02:36:34 Jose Rodriguez [facility] CONTRAST [facility] POCT TEST 2019-03-29 00:48:00 Jose Rodriguez [facility] LIPASE 2019-03-29 00:47:00 Jose Rodriguez [facility] COMP. METABOLIC PANEL 2019-03-29 00:47:00 Jose Rodriguez [facility] ([id number]) [facility] CBC WITH DIFFERENTIAL 2019-03-29 00:47:00 Jose Rodriguez [facility] URINALYSIS 2019-03-29 00:47:00 Jose Rodriguez [facility] NOTICE OF PRIVACY 2019-03-28 23:58:28 Doctor Unanaa, [facility] [place] [facility] CONSENT/REFUSAL FOR 2019-03-28 23:55:31 Doctor Rosie [facility] DIAGNOSIS AND TREATMENT [place] [facility] Encounters Start End Encounter Admission Attending Care Care Encounter Source Date/Time Date/Time Type Type Clinicians Facility Department ID 2021-02-21 Outpatient SYSTEM, CUCA THURMAN [id number] 16:13:12 PROVIDER Kuldip o n 2021-01-02 Emergency [facility] [id number] Univers 12:14:09 [facility] 2021-01-01 Emergency X [facility] ERT [id number] Univers 19:53:57 ity [facility] 2021-01-01 Emergency [facility] [id number] Univers 19:53:02 ity [facility] 2021-03-23 2021-03-23 Outpatient KAROLINA CLAROS [id number] Karolina 00:00:00 00:00:00 ANNABELLA Seybol d 2021-03-23 2021-03-23 Outpatient MIGUEL ANGELLUISKAROLINA [id number] Karolina 00:00:00 00:00:00 AHMED Seybol d 2021-03-14 2021-03-14 Outpatient KAROLINA CLAROS [id number] Karolina 00:00:00 00:00:00 ANNABELLA Seybol d 2021-03-01 2021-03-01 Outpatient KAROLINA CLAROS [id number] Karolina 00:00:00 00:00:00 ANNABELLA Seybol d 2021-02-28 2021-02-28 Outpatient ERIC ARDON [facility] [id number] 09:05:06 09:05:06 JUWAN guidry 2021-02-09 2021-02-09 Outpatient SATNAM MOORE [id number] Karolina 00:00:00 00:00:00 MD RILEY Seybol d 2021-02-07 2021-02-07 Outpatient KAROLINA MOORE [id number] Karolina 09:50:00 09:50:00 Seybol d 2021-02-07 2021-02-07 Outpatient ESTRELLA PARMAR [id number] Karolina 00:00:00 00:00:00 Seybol d 2021-02-06 2021-02-06 Outpatient ESTRELLA PARMAR [id number] Karolina 00:00:00 00:00:00 Seybol d 2021-02-01 2021-02-01 Outpatient KAROLINA MOORE [id number] Karolina 12:40:00 12:40:00 Seybol d 2021-01-30 2021-01-30 Outpatient KAROLINA LEE [id number] Karolina 00:00:00 00:00:00 EUGENIA Seybol d 2021-01-25 2021-01-25 Office LeeJEAN [id number] Karolina 11:30:00 12:00:00 Visit Eugenia Becerra [id number] Seybold 1.2.7.2.686 [id number] 2021-01-20 2021-01-20 Outpatient KAROLINA CLAROS [id number] Karolina 00:00:00 00:00:00 ANNABELLA Seybol d 2021-01-18 2021-01-18 Outpatient LAB90 KAROLINA MOORE [id number] Karolina 11:55:00 11:55:00 Seybol d 2021-01-18 2021-01-18 Office Myron Claros [id number] Karolina 10:49:52 11:19:52 Visit Annabella Weaver [id number] Se ybold 1.2.7.2.686 [id number] 2020-11-04 2020-11-04 Letter ROBERTA Kaiser [id number] Univers 00:00:00 00:00:00 (Out) Yajaira AJ [id number] it y of [facility] 4.2.7.2.686 Gaurang as [id number] [address] 2020-11-02 2020-11-02 Urgent Nasreen Ledezma [facility] [id number] Univers 11:13:05 11:33:05 [facility] [id number] ity [facility] 4.2.7.2.686 Gaurang as Bebo?Blea [id number] [address] Medical Office Building 2020-11-02 2020-11-02 Outpatient R [facility] [id number] Univers 11:20:00 11:20:00 [id number] y [facility] 2020-11-02 2020-11-02 [facility] [id number] Univers 11:20:00 11:20:00 RANDY palomino o ady [facility] 2020-11-02 2020-11-02 Orders Doctor GRANADOS [id number] Univers 00:00:00 00:00:00 Only Unassigned, JEAN MARIE [id number] ity of [place] [facility] 4.2.7.2.686 Gaurang as [id number] [facility] [address] [place] 2020-10-01 2020-10-02 Emergency Bernardo, [facility] [id number] Univers 22:30:00 01:56:00 Jose Walsh Randall [id number] i ty of [place] 4.2.7.2.686 [id number] [address] 2020-07-19 2020-07-19 Emergency , [facility] [id number] Univers 16:54:00 19:37:00 Zen Randall [id number] i ty of [place] 4.2.7.2.686 [facility] [id number] [address] 2020-07-19 2020-07-19 Orders Doctor ROBERTA [id number] Univers 00:00:00 00:00:00 Only Unassigned, JEAN MARIE [id number] ity of [place] [facility] 4.2.7.2.686 Gaurang as [id number] [address] 2020-06-07 2020-06-07 Outpatient LAB90 KAROLINA MOORE [id number] Karolina 10:00:00 10:00:00 Seybol d 2020-06-07 2020-06-07 Outpatient ESTRELLA PARMAR [id number] Karolina 08:30:00 08:30:00 Seybol d 2020-02-04 2020-02-05 Inpatient E NICOLE, BL MED [id number] BL 11:00:00 16:58:00 JOSEPH 2019-09-11 2019-09-11 Laboratory Lab, Adc Fam Pob I [facility] 1.2. [id number] Univers 14:09:42 14:29:42 Only Savana Richardson [id number] ity of [employer] 4.2.7.2.686 Gaurang as Professio [id number] Ri dical [facility] 044 Branch Office Building One 2019-09-11 2019-09-11 Outpatient R [facility] [id number] Univers 14:20:00 14:20:00 [facility] 2019-09-11 2019-09-11 Outpatient R [facility] [id number] Univers 14:20:00 14:20:00 [facility] 2019-07-29 2019-08-01 [facility] [id number] Univers 14:08:13 12:04:00 MACK [facility] 2019-03-28 2019-03-28 [facility] [id number] Univers 18:12:42 22:01:00 Jose Pereira 350.1.13.10 i ty [place] 4.2.7.2.686 [place] [facility] [id number] [address] Results Test Description Test Time Test Comments Results Result Comments Source Pathology Outside Interpretation 2021-03-14 14:07:55 Test Item Value Reference Range Interpretation Comme nts Materials c6zgkQLnDPWzxAZhHvQrMOLjZNDiv5hkSXOmqRNpWbKhMyYaJqOdAyxzpFOcTBWtSoEeq8vmj106dINu x8liSOHdTpE6qJIrPIQrnGSsP366EOQnHTrca7hux0MfRCQmmSGog1G5FLAEqekilKr5fRiqZ56mc3J4 JapyR7vwJDCwMZNpG1IuFP7fKVFxCgw9VPE7LJL3ING Received aIIMyL0OrSV5oNDSxuAQzKRi2w5uaoEkpUHOqNID8o8afLAnataZgAA4reu0plBw9m5fphuDrQRYmEKF zsKALVLBpM6KtxQalZg4psSg6eKtiKqabHQT8Sus9EZ2gtb66wdq3yRaaKELerbotSnE6TKxrJNLinzs qVXa1RAkoBCYjkRqwBArkBXOnyekyQVoaZQDqnHI3FS (test code BwwCJcL5UeLYBoNJlcCQDvhmv7KsXoVx3lwDGcpRooBJdqp4rsw5gijBDqCmt0VCSiGpOxNllbZXgkl4 Bwj8ipDFRidp8cKDQ3fILtyDpka8W1eEBrFCJymQKaumCdDVHppq75gOGulAJloXRoru3mihMmkQEugP SoSWO2pDKiahJeRHOzpMYwJAGzTL7poBZwOIUhoV7rf = 9973) hdcWMFkDiWmcpisEZWovAiztcVcAo9akEemCCS8ZDocX4idtR1nTsA2RLsaI0rhbH6fDGc6KEsafFJ4I MTzwL9oEC4lciahf8ugNoVfMM7ebvcvn6uuAoGsHQ3emif3h9apBRC7ZGnmPJMnToP8uqD3NWOkjWFbL ZMzmHevGKpre805IKR6GfBxEEYxs6DfU9ZitVcrS10n cAsgR03oNCHloIlmyZ5vhLyrsI7bHcOiHpZdEEc6lk17MSa1tnvfuPcySKl9yfBkHCMfXWO1PHRceYJc FENzX0s1ewPdOKJsSON1OOCksEPuGNRxL4e3aqIpSMW4AYq0ebDbIPHnzXXdwOJhDBVxWdYjkBMiWZLm DkAlSJDsnHOdwBOlrYJnjX5orLztDSGfePGnmT2iTLI 2DQFgddyxRnKxaFDrVNMreQIrgo57OZDcixGmkFJnqPdwfZCyYYG6OKUyVNJhLIOaKPO0NCQmVcPmlpY fUOoplIGfGJEoOADjQJYvJKRnAFB7WUJsQzCtdeHtOQqepGIoKRVyWHSlYHJiFPQfMMT9FRTqTbVdfvZ ePPwydVCjWDReUQNiWANrMVDqYEB5HGQbSbCadjNbBY mfiRNgCTHvONnnkCVtGPE0S3ohiVAkYUOtSNdshSTbTAYbQ5tpkKImLHvhAXAgyNFuKrucCFGrfAUuSb XjH3ycHOCeSrAeU2AowEu9JITsFUYejxOfmJHmrNhhnMVaYCP4SWEsVCCxCDGbELX5IZZxEhQpbbDdUI effQUzVYMvCKIvGSUpZVCoFJI5PUNbQaCxiuHrRTljs ZPaOWFpKCMwRZPvXWAoNQM6QPXnTdCcqjGvXZzprFKoEGSuKRDsVPUjQIZiEMN3OSUrRmOofeHeZAtvx DXbFMDqNXbsuQTlSQF8T4icdFZwDKCeADsqsHVzNGLmE2kcpVVdFNofXRGnxBSuSbuhQGGnyTMbFcLsR 7diNWNrOuDuJ4NtdEu6XnSuCTYfikAjvETnrIsjgTPr TWN0GZQhPCBvGWKwSAS5LQAaZtCmvcIlGHouhYIuUWSyBSYxCKRqPOSnFDV3CATpRhBtvrBpFVixpYPc RCSeJUQxWKSqEJVmCPW8HVXmRvWqdmItADqezSBgKROzUQQbAPMwRDWbEJC8AKCwHeHfraGwAMjcbHIb VFVpRDwblLOvVEZ7H3gpoNVpFCZpZDhjxSWsHDXzM1b lpIHyOOjuPSVqzYEqUnunRPEopRWzWrFbQ2tcMUPmKiBkA3OzrMw5YaUlYZBhzyFupO10Tvdka8UaAKY uCTU1VNwlLDtpcOgmvLKmdgqjIYxzajKcWQnprmafDHMbJLarU9tfCqGxKHTpxBobEIpvh6KvKUSiCAK iNtbvnoBtYBAkBIFyWODakE6uSwhoH3NqfE0kZVkwIe wnP0xfXVHnk9EtpM6qIXxpoGAihrkrJYefzqClLMmxpypwDRLsNNevW9ejWzZyUOSbxBkmFCavc5YqJK GdXDJqQdeeswOiDEe1awDoSWBuyRchbEUkRAzbzqAvsRdah2FzkgJsmPieUESrQQp6exTppbdmeTe3iM VisQhfWBMlnDfzmV7iPtCkUcArCKwohYAbfqydECkyz aQoJNobocetPHMtUDcwN0nsRdVkSPTmxKplYWigk9FmGTRiCZRrXpqbrpQkUGBoO90llFRefKJoCKQnI YghXCMiMWUkMeZtnPZjVtDpIwSalHpsiFxiIHpdJtIyYMFkUTolZ9iqInRxS7XpMKRmYwKhqXCbO6tcC 7LotMdsPXOyZPrvbBEdBSYjcNNsSMK1bHFguaOtwKWn yXTpFWReOOpiGTS1xMGvgdeawNOyysgaTIuokeG8BIHsALcpKVXfMOEsEwKhlILsSyXpSpFntPsycSru FKaoKiTwQZKbDOnhF8wgChLuD8UoSTPdIzXqScHBROLhyYHgTHnadAVxzcwaOCihxpHpUGuagtmmOKPz WGgiY1swEeRdUTNdlAjbIYrmg0AxIGFjHFOnSduhuaS yCOn7gyLkIYBaxWtdgU41Knwrut64YBRve6slDTRiH5ZxuROhLRZxpEAjAErcTXyccIQxLZBuLblnYNF hmYIsNIOcEMdgxYPnXFLfYsOqVXXwaVVfPQWeXZPewGOkGJA1V2n5oyVjHONtVNz2ziHxUWXuUyThuZV xGDP5UHx3EuctdbU6hIPtJ5p8KswlybHsIUmfpGLart 13NEWlwjEcsTQxoYlysMRrWXO9CJDmFUBqYGLyYXO3NMAqSxWrhwVmUMnalGGvTOBeGTGhYVQyVFVkAZ F5QQTrTmCyflIdDIexzBBxBFIjGKKwBIGiYRKyDPS9CRCyMuOjuuHdGZcllRBmEVVtQNHmSJZiIEBzQY L9FJRfDgQkzjSpHPnggKApCHGgPAeknWViBPD3A7xqc ZJuFHPaSUuzjIUeUQQeC1vvsIJbTNzdOYNfnKUqEjiuMNLhqJTePxIlC2wdAPIrOqMjC0IjpYb4XHMiZ SWumpCeoKSzpWofvMRaJVE4WLCoWMVpTNSgRMO8DXGrGuVhmcNeELcujFIoRVAcJAMpNFFrNWGcADC6D WNcVgBscnUgKJbbbTIoDSIxLGPrJEMfJKQtYPI0TARf EbDvuhIzAUijvLRpSQJbFXXcFCNlUWEvKON4BHIvOdFqtaKsQPcevAJgSKVfAZnloAFjUJZ6T5mtzOEo LXLvCFaerCDqCSOdQ9rwzQZkKEqkTSRazWOuOdwfFFGnpYClEiMuY5pvNIYnLrWkL3GkwNu7AxNmKCWs neMogEDypRqucZEtFGC6AMAyGCUfBFUqRFM6GNOjFgI bnlOdUTrlcXOkAOIiKFItHTRrWSFrKBO4ESZrHqBneoKpFUmiyCCwSXOaZKPgDUGlQQJfEOA7MMMcMfF wnbJcYGpweCQyYFBjZVVsXVMkZHZtIRU3KFAyCoFfjcRpRQwlcZGzLOWlPNncyWXqXTM5R5mrjBTyEIN nQLfmoHEcVAEpV3efiTNsLOhrGWPzaAUlEbdiPEBgaJ KmMlGfE1apCLTrGvTgL4IcqNf1VaXbVEYgrnDdjM08Oehpo7DpUGKcZZH4GEvfOKpfiJoszNSrnoarUY pplrW3VTPdXEspHTLmTEVwSgAvqNJcUrHrCbSelGbmjLjaURibRcRxMZPqQItwO7bdWhJmG0WyZERjOg DhHR1oTqD8PCCpYCIzHDKcEQKFStnuXTDULJ0AS1DeE HSjBSVOLSSdTYixPYJsYASwPcKkiRYjFtWmVkNioMifsKwyXZxpXsOhOYGvVCpcN0fqAyHgQ7NzJEZcX dWdfSKzN2hxJ1UdiWdrAFFqRZswkLCbLHXpqYTsWZA6lHBqtfRrtSqqfMfxrC9jNvAfChFhNGlxiYYzu rfvXTabbfKgZVtclwfwERXjBOoiV4nrJaHqXGBhmSrq NLfyg4ZtKOMdEURqJffvvvEjDQKjAeAaXwYoUqQevUyngK6eKsTvYcKxHCulMS1qPNVtZ8abrDEmCGNh EYBzY1stJjBsrO1laWlrPInzJiYyYeMoQHdesOItmOlmAGkeONVmssCaoO80Bwqlk7QeJZTbWIE9VDlw NWvhzSflcVVbkzugJUnqlkT1QSYmMMvlHNWyMQDkChH apGMeVfTlPdIseBfbcXddOUqnFbDtOLGjQAxmA4umNtCzZ9IcKOMzNlIxOD8qWP1gBWNhQXJmULksRPI vBVKjRaXiyPGkLnAuTrUbvWwzhCnvTOzjBlIxJSDjETmpE1wjOmAeO2TcGGAqDiOvnIXoX1laR2WuyBc vrtYdbAjqw0eaiGXnOMlff7IbzxOtiPohDKFgVVPqAZ JcVHdeTOBlNBFwHtVvrBbkmP9cCqQkRkExLByiUC2yPKOnE0utgWCsBTFjJVWsU4akFsZtlR6bgVvqDG xmczIwXHBhcn0= Diagnosis e3npkTNoIDSedHY9SlEyUXVxc0ffz0ZorQHxkNUcGFdcvGVnnkXiqx04rNM0yS17KU1kSDUaWsU4XRZx eoD6Spo2RQOkYBSedLUgR160b3ouq3vmbrPoeTS9YHNsOWWpP9LxVZ3bZMEilFRtA84imRNjBXQ0UOBs NINbnRUbHEHuQNU2UHVabDLrM4awCGDbKX2wvuooZFj (test code iARblSCYryKH6GNRziUOmA3YuJWWbNVgyVNYsriw6OgLrJo1ysWWqzBmxYNokRBWxICPuWOgbEJPvMrD iP5YcIJd4eVQvXH0eAHGzTSfcGxFkeELpMFRidrJakiavOPJ3Y2hkjY3gBZjxXmvioTO8WnzrZEQrQ7A hMYXldzhpiXxgTKrsvN88VzQsICzKZkSZUAKSLBHCUK = 34) BQQHNIDNvwNYqLDNnYNDHpPTicQCthDAmnTJ7VCWGUGEnIZ2KYZTHuSFyKKJwOJBZdAQvKBAKFJLJZBR ipUG3bCJCvZUAhaavwBFHxGNeiVE5gb8LdQOUaAVsbzgLxTAdyox1zvqIkXDDlnpQmskQTLWQdyEgdhL 0knZ7ozDzbnb25hVIeDTLwHGGIhD82GmJwdkV+OTAtO TUlIFxwYXJccGFyZFxwYXJ9 Comment q3hcrCFnPEYwzJE8SbXlJGTia6vtq1WgmZKmiYWtAPyzxLHfrjPeox30cMN3bJ60RY6lOXEiBrE1YKBy ukF0Whl8KVNgIGUwbFAcH065z2isz7yqzzUfoBY7rCxwJOBxedehVyQ6AVtxAQRxbwxqVXd4QItwHIMx tUG7UKNxcBBhR7JvKCXbDX3mnpv4QKZ2TFijFSRtHmF (test code 8MIRcyWSuROOerTurFUkua799ZZE8GfAoSXMppzWrrKxpxB5aUvQzBRCOrBB4a0qlL1moQLFaH9Dsu98 ySWQos3znhIgsiVmuhf5pRIRmeeH0lJvdwRG3vTTeJQIcfMc7DIR2fNBxIPpmIFJsnT8ghCDbi12whPO 9EFd8FLFnkHbqT3RqDTY1NHj4oVPts64hNwIcDK8lbK = 9835) [file] eIElJ6GnQg49TAivDFUMKGXxgywgPZF3 Disclaimer g2ehjBKqFSMndYJzOgZvNYGwTSSuv1oaJSJjnBPoUkFnIaBiRkQvDfqoiJKfRTDdMeLig8jdt827tQWp l9jwSFAcWtI8xSFdSNRgtOHyL970ASAfMSslz7rng7KuKTQvhYXhs0H4NHJOtucdwEz5tJkeH23pc5T6 OlmwP8ihHDDgOQMxK4UdCM5jNKXuLwy0JAV8JIR1PMN (test code jKUQxT1FfNI6oGECllGZhEKx4m8xbaIabTHXxHRK0x3dnTLiszrLeWU8zlq3dbZb1o9qwepMaVLOmMNP ofKTHPRCxW2DgoTmqDp0isLc8kRibTqtzWVP5Hxo7RJ6ily15nrc0zJxrQDBpqctvMdL8RJseNLIftry bHZp4LMvtQZVonBC1WKUubAPpS0RpCDGtCT3zxwt4UM = 9844) O0RHftBNLaEtC9LEBsrEWeJAQwcYtjSHtvr721TTC5TdYrUB8vH8Bwf7F2gU2znWMbJZAunXAtQhEpAO Nbqa0ssLQcLPggd9InWPA6pcF7hQEneFLwTRDvKN42Qxwms7UuXgbeTGW3KXNcddJzc1Pkc3xuQsPjpy XyN2wcK1PmQBUqZJXzTZJaFkSkgaFwx6Rpp2MtbVCdt Ds0c1yrBEIdDVVzpZdgh1nwVAO9OVEcX1V0iFYbt2tlVWooSGOxmYM9bsB4IQCzaPSpM4DmmD7mLTZeD W9dheu8q4xbPHT1ZBnsGJGbBtQ4neK7TBGmkYVaXWVlcWewGYqpx614FZA7ZkEbSUQpv8MoH4AdjYnnO 05veNgvN00yBJKmpFhvaO7vlFulmU2yJlZqUuMpAGix tLyejLCyyyfkRIrqelL7CKqaxmmtGYImJYlqZ9xaJcQuDYHgpUqxIShrj0JiGFRhUXMuVtsbzpD0RREA m56eWYGqo3IyCNTmvR5aaSMwOSbzsrUspIP0WRqghtIoEoCznvKyARSfkN7lYGDgEI0eACWxehJdyp8o yxAtPIHlGOSnU4YeivxiaUsgaoBlDWEesn7oevLdPWR 9YZGKCI9IIZDtTLScr77sYXXknZiewD0ptCKuopQfLFGdb0CdjW2grOTYZPDeC7qqYJ2gUKtpn7SozLK zqKDvbCW3VFYan6HwTiXareFqlMNyeIAlM4UjaIvfD4ehPUSdOEFiknRhnZOnu7YiNWXhhRX2zDAuPV1 ZGhYLd47tSVAuTREQilHxONYyoNcsqZR7lsO2rN2yFh RDXdXqxGRvoISeBtmhHGWiu315jz4eqpS5BCKqECZjvvtym9LiOZHaSPFsnQ91OOTbOMBhyz1sclmalF PcsyHdG3Gbygu0pJ1bSPVlYAvdPQUlGYLsCfMyyWKeQePzInCbsMgzjJzvANpwAuOuGJKvPSbpM0mzEi FcZnMyMlxwYXJ9 [facility]ITAL[facility]ari[facility]. METABOLIC PANEL ([id number])2020-10-02 04:58:30 Test Item Value Reference Range Interpretation Comments NA (test code = 138 mmol/L 135-145 9007870506) K (test code = 3.9 mmol/L 3.5-5.0 8316135012) CL (test code = 102 mmol/L 98-108 0292999655) CO2 TOTAL (test code = 25 mmol/L 23-31 3190368830) AGAP (test code = 2-16 1071737328) BUN (test code = 20 mg/dL 7-23 0758388927) GLUCOSE (test code = 96 mg/dL 70-110 8704366313) CREATININE (test code = 0.56 mg/dL 0.50-1.04 1461870308) TOTAL BILI (test code = 0.8 mg/dL 0.1-1.2 8595083966) CALCIUM (test code = 10.2 mg/dL 8.6-10.6 4935970002) T PROTEIN (test code = 8.8 g/dL 6.3-8.2 H 1711120152) ALBUMIN (test code = 4.7 g/dL 3.5-5.0 0190201873) ALK PHOS (test code = 99 U/L 34-122 2480093062) ALTv (test code = 38 U/L 5-35 H 2-6) AST(SGOT) (test code = 31 U/L 13-40 8630314814) eGFR (test code = mL/min/1.73m2 9196436305) SCOTT (test code = SCOTT) Association of [...] tests). Lab Interpretation Abnormal (test code = 65112-1) [facility] 04[facility]30 Test Item Value Reference Range Interpretation Comments LIPASE (test code = 3598345082) 243 U/L 0-220 H Lab Interpretation (test code = Abnormal 60634-4) [facility] 04:51:44 Test Item Value Reference Range Interpretation Comments APPEARANCE (test code = Clear Clear 9527166744) COLOR (test code = Yellow Yellow 9056883019) PH (test code = 4.8-8.0 4414764038) SP GRAVITY (test code = 1.003-1.030 5726739363) GLU U QUAL (test code = Normal Normal 5585422734) BLOOD (test code = Negative Negative 6287150969) KETONES (test code = Negative Negative 4415903481) PROTEIN (test code = Negative Negative 2887-8) UROBILIN (test code = Normal Normal 8391783090) BILIRUBIN (test code = Negative Negative 6540593150) NITRITE (test code = Negative Negative 3740448145) LEUK BAILEY (test code = Negative Negative 3519060077) RBC/HPF (test code = See_Comment [Autom ated message] 3172696051) The system [employer] generated this result transmitted ref erence range: 0 - 3 HP F. The reference range was not used to int erpret this result as normal/abnormal . WBC/HPF (test code = See_Comment [Autom ated message] 7332596817) The system [employer] generated this result transmitted ref erence range: 0 - 5 HP F. The reference range was not used to int erpret this result as normal/abnormal . BACTERIA (test code = Negative Negative 7554877321) MUCOUS (test code = Slight Negative LPF A 6204982680) SQ EPITH (test code = HPF 5511748532) Lab Interpretation (test Abnormal code = 43707-4) [facility] WITH [id number] 04:45:31 Test Item Value Reference Range Interpretation Comments WBC (test code = See_Comment [Automated 2390-2) message] The sy stem which generated this result transmitted reference range : 4.30 - 11.10 10*3/?L. The reference range was not used to interpret this result as normal/abnormal . RBC (test code = See_Comment [Automated 879-8) message] The sy stem which generated this [...] (test code = 38.7 fL 39.0-49.9 L 88267-8) RDW-CV (test code = 12.9 % 12.0-15.5 788-0) PLT (test code = See_Comment [Automated 777-3) message] The sy stem which generated this result transmitted reference range : 166 - 358 10*3/ ?L. The reference r lenard was not used to interpret this result as normal/abnormal . MPV (test code = 9.4 fL 9.5-12.9 L 82356-0) NRBC/100 WBC (test See_Comment [Automat ed code = 4985678198) message] The system which generated this result transmitted reference range : 0.0 - 10.0 /100 WBCs. The refer ence range was not u sed to interpret th is result as normal/abnormal . NRBC x10^3 (test code <0.01 See_Comment [Auto mated = 6930879695) message] The s ystem which generated this result transmitted reference range : 10*3/?L. The reference range was not used to interpret this result as normal/abnormal . GRAN MAT (NEUT) % 52.7 % (test code = 770-8) IMM GRAN % (test code 0.20 % = 5653067751) LYMPH % (test code = 38.2 % 736-9) MONO % (test code = 7.6 % 5905-5) EOS % (test code = 1.0 % 713-8) BASO % (test code = 0.3 % 706-2) GRAN MAT x10^3(ANC) 3.33 10*3/uL 1.88-7.09 (test code = 3451680619) IMM GRAN x10^3 (test <0.03 0.00-0.06 code = 1702972481) LYMPH x10^3 (test code 2.41 10*3/uL 1.32-3.29 = 731-0) MONO x10^3 (test code 0.48 10*3/uL 0.33-0.92 = 742-7) EOS x10^3 (test code = 0.06 10*3/uL 0.03-0.39 711-2) BASO x10^3 (test code <0.03 0.01-0.07 = 704-7) Lab Interpretation Abnormal (test code = 50286-4) [facility] (ID NOW RAPID TESTING)2020-07-20 00:25:44 Test Item Value Reference Range Interpretation Comments SARS-CoV-2 Rapid ID NOW Not Detected Not Detected (test code = 38651-5) SCOTT (test code = SCOTT) ID NOW COVID-19 Assay is an isothermal nucleic acid amplification test intended for the qualitative detection of nucleic acid from SARS-CoV-2 viral RNA in nasopharyngeal (COMPENSATION SPECIALIST) specimens. It is used under Emergency Use [...] indicated. Lab Interpretation Normal (test code = 75705-3) [facility]. METABOLIC PANEL ([id number])2020-07-19 22:47:37 Test Item Value Reference Range Interpretation Comments NA (test code = 139 mmol/L 135-145 5972011930) K (test code = 3.6 mmol/L 3.5-5.0 1936887684) CL (test code = 103 mmol/L 98-108 1908852111) CO2 TOTAL (test code = 27 mmol/L 23-31 3444244656) AGAP (test code = 2-16 5663773289) BUN (test code = 18 mg/dL 7-23 6045183789) GLUCOSE (test code = 98 mg/dL 70-110 3874113511) CREATININE (test code = 0.78 mg/dL 0.50-1.04 1739611640) TOTAL BILI (test code = 0.7 mg/dL 0.1-1.4 0055498082) CALCIUM (test code = 9.9 mg/dL 8.6-10.6 6174896494) T PROTEIN (test code = 7.4 g/dL 6.3-8.2 4514396538) ALBUMIN (test code = 4.3 g/dL 3.5-5.0 2345146725) ALK PHOS (test code = 97 U/L 34-122 7902012591) ALTv (test code = 39 U/L 5-35 H 1742-6) AST(SGOT) (test code = 32 U/L 13-40 6749652887) eGFR (test code = mL/min/1.73m2 4891986018) SCOTT (test code = SCOTT) Association of [...] tests). Lab Interpretation Abnormal (test code = 86807-7) [facility]21-[facility]-18 22:47:02 Test Item Value Reference Range Interpretation Comments APPEARANCE (test code = Clear Clear 5433524227) COLOR (test code = Yellow Yellow 6949751913) PH (test code = 4.8-8.0 2047696359) SP GRAVITY (test code = 1.003-1.030 5574788531) GLU U QUAL (test code = Normal Normal 1242010553) BLOOD (test code = Negative Negative 2740876557) KETONES (test code = Negative Negative 8034088399) PROTEIN (test code = Negative Negative 2887-8) UROBILIN (test code = Normal Normal 5450141111) BILIRUBIN (test code = Negative Negative 1396873345) NITRITE (test code = Negative Negative 2752930653) LEUK BAILEY (test code = Negative Negative 0535251098) RBC/HPF (test code = See_Comment [Autom ated message] 3726849757) The system [employer] generated this result transmitted ref erence range: 0 - 3 HP F. The reference range was not used to int erpret this result as normal/abnormal . WBC/HPF (test code = See_Comment [Autom ated message] 8911516574) The system [employer] generated this result transmitted ref erence range: 0 - 5 HP F. The reference range was not used to int erpret this result as normal/abnormal . BACTERIA (test code = Negative Negative 0382861347) MUCOUS (test code = Slight Negative LPF A 6728919762) SQ EPITH (test code = HPF 1604986849) Lab Interpretation (test Abnormal code = 61731-8) [facility] 22:46:57 Test Item Value Reference Range Interpretation Comments LIPASE (test code = 5269757328) 277 U/L 0-220 H Lab Interpretation (test code = Abnormal 46302-2) [facility] WITH [id number] 22:37:16 Test Item Value Reference Range Interpretation [...] (test code = 34.9 fL 39.0-49.9 L 69144-7) RDW-CV (test code = 12.0 % 12.0-15.5 788-0) PLT (test code = See_Comment [Automated 777-3) message] The sy stem which generated this result transmitted reference range : 166 - 358 10*3/ ?L. The reference r lenard was not used to interpret this result as normal/abnormal . MPV (test code = 9.7 fL 9.5-12.9 38690-5) NRBC/100 WBC (test See_Comment [Automat ed code = 1527957897) message] The system which generated this result transmitted reference range : 0.0 - 10.0 /100 WBCs. The refer ence range was not u sed to interpret th is result as normal/abnormal . NRBC x10^3 (test code <0.01 See_Comment [Auto mated = 0627077345) message] The s ystem which generated this result transmitted reference range : 10*3/?L. The reference range was not used to interpret this result as normal/abnormal . GRAN MAT (NEUT) % 47.2 % (test code = 770-8) IMM GRAN % (test code 0.40 % = 6455585361) LYMPH % (test code = 43.2 % 736-9) MONO % (test code = 7.5 % 5905-5) EOS % (test code = 1.2 % 713-8) BASO % (test code = 0.5 % 706-2) GRAN MAT x10^3(ANC) 2.69 10*3/uL 1.88-7.09 (test code = 4811829501) IMM GRAN x10^3 (test <0.03 0.00-0.06 code = 2069062920) LYMPH x10^3 (test code 2.46 10*3/uL 1.32-3.29 = 731-0) MONO x10^3 (test code 0.43 10*3/uL 0.33-0.92 = 742-7) EOS x10^3 (test code = 0.07 10*3/uL 0.03-0.39 711-2) BASO x10^3 (test code 0.03 10*3/uL 0.01-0.07 = 704-7) Lab Interpretation Abnormal (test code = 04901-5) [facility] PELVIS W [id number] 02:46:10Postsurgical changes with anastomoses sutures in the rightcolon.2. Fluid-filled loops of normal caliber mid and distal small bowel may be anonspecific enteritis.3. Previous hernia repair. No recurrent hernia.4. No hydronephrosis.5. No free fluid. RL: 4400AF: 10089 END OF REPORT Ordering Physician: JOSE RODRIGUEZ [...] hernia.4. No hydronephrosis.5. No free fluid.RL: 4400AF: [id number] OF REPORT [facility] [id number] 01:12:00 Test Item Value Reference Range Interpretation Comments NA (test code = 140 mmol/L 135-145 5105640194) K (test code = 3.7 mmol/L 3.5-5 5778237150) CL (test code = 104 mmol/L 98-108 8873868539) CO2 TOTAL (test code = 26 mmol/L 23-31 4832639454) AGAP (test code = 2-16 8778472077) BUN (test code = 10 mg/dL 7-23 6238936078) GLUCOSE (test code = 99 mg/dL 70-110 7142810016) CREATININE (test code = 0.53 mg/dL 0.5-1.04 8784098023) TOTAL BILI (test code = 0.5 mg/dL 0.1-1.5 9492716085) CALCIUM (test code = 9.7 mg/dL 8.6-10.6 0634519143) T PROTEIN (test code = 8.8 g/dL 6.3-8.2 H 5140007774) ALBUMIN (test code = 4.6 g/dL 3.5-5 4389811077) ALK PHOS (test code = 126 U/L 34-122 H 0358070577) ALTv (test code = 63 U/L 5-35 H 1742-6) AST(SGOT) (test code = 45 U/L 13-40 H 7866407921) eGFR Calculation mL/min/1.73m2 (Non-) (test code = 4575769544) eGFR Calculation mL/min/1.73m2 () (test code = 7691508059) SCOTT (test code = SOCTT) Association of Glomerular Filtration Rate (GFR) and [...] tests). Lab Interpretation Abnormal (test code = 60791-6) [facility] [id number] 01:12:00 Test Item Value Reference Range Interpretation Comments LIPASE (test code = 9999174895) 166 U/L 0-220 Lab Interpretation (test code = Normal 27626-9) [facility] Texas[facility]inalysis2020-01-26 01:09:00 Test Item Value Reference Range Interpretation Comments APPEARANCE (test code = Clear Clear 9120388305) COLOR (test code = Yellow Yellow 9254081487) PH (test code = 4.8-8.0 1282340529) SP GRAVITY (test code = 1.003-1.030 7770384896) GLU U QUAL (test code = Normal Normal 6940121901) BLOOD (test code = Negative Negative 7476017412) KETONES (test code = Negative Negative 0493774685) PROTEIN (test code = Negative Negative 2887-8) UROBILIN (test code = Normal Normal 4734129435) BILIRUBIN (test code = Negative Negative 4038813058) NITRITE (test code = Negative Negative 6587512254) LEUK BAILEY (test code = 25/uL Negative A 8176769789) RBC/HPF (test code = See_Comment [Autom ated message] 1988810564) The system [employer] generated this result transmitted ref erence range: 0 - 3 HP F. The reference range was not used to int erpret this result as normal/abnormal . WBC/HPF (test code = See_Comment [Autom ated message] 8550598794) The system [employer] generated this result transmitted ref erence range: 0 - 5 HP F. The reference range was not used to int erpret this result as normal/abnormal . BACTERIA (test code = Negative Negative 7335607516) MUCOUS (test code = Slight Negative LPF A 9815653268) SQ EPITH (test code = HPF 1579373663) Lab Interpretation (test Abnormal code = 97813-6) [facility] TexasCBC WITH [id number] 00:58:00 Test Item Value Reference Range Interpretation Comments WBC (test code = See_Comment [Automated 7890-2) message] The sy stem which generated this [...] (test code = 35.2 fL 39-49.9 L 16468-0) RDW-CV (test code = 12.3 % 12-15.5 788-0) PLT (test code = See_Comment [Automated 777-3) message] The sy stem which generated this result transmitted reference range : 166 - 358 10*3/ ?L. The reference r lenard was not used to interpret this result as normal/abnormal . MPV (test code = 9.3 fL 9.5-12.9 L 10164-6) NRBC/100 WBC (test See_Comment [Automat ed code = 2965546742) message] The system which generated this result transmitted reference range : 0.0 - 10.0 /100 WBCs. The refer ence range was not u sed to interpret th is result as normal/abnormal . NRBC x10^3 (test code <0.01 See_Comment [Auto mated = 1776123333) message] The s ystem which generated this result transmitted reference range : 10*3/?L. The reference range was not used to interpret this result as normal/abnormal . GRAN MAT (NEUT) % 51.0 % (test code = 770-8) IMM GRAN % (test code 0.40 % = 8468848115) LYMPH % (test code = 38.3 % 736-9) MONO % (test code = 7.6 % 5905-5) EOS % (test code = 2.1 % 713-8) BASO % (test code = 0.6 % 706-2) GRAN MAT x10^3(ANC) 2.69 10*3/uL 1.88-7.09 (test code = 1879990452) IMM GRAN x10^3 (test <0.03 0-0.06 code = 6453815244) LYMPH x10^3 (test code 2.02 10*3/uL 1.32-3.29 = 731-0) MONO x10^3 (test code 0.40 10*3/uL 0.33-0.92 = 742-7) EOS x10^3 (test code = 0.11 10*3/uL 0.03-0.39 711-2) BASO x10^3 (test code 0.03 10*3/uL 0.01-0.07 = 704-7) Lab Interpretation Abnormal (test code = 16881-0) [facility] TexasPO[facility] Nwoc2408-26-45 00:48:00 Test Item Value Reference Range Interpretation Comments POCT PREG (test code = 1605) negative On board controls acceptable with present C Line (test code = 3574) POCT PREG LOT # (test code = 3575) [id number] POCT PREG TEST DATE (test 10/02/2019 code = 3576) Lab Interpretation (test code = Normal 37691-7) [facility]URIN[facility] W/ [id number] 05:12:00 Test Item Value Reference Range Interpretation [...] code Urine, Clean Catch = 2795) SCREEN, [id number] 05:00:00 Test Item Value Reference Range Interpretation Comments TEST URINE (BEAKER) (test Negative code = 583) BASIC METABOLIC [id number] 03:20:00 Test Item Value Reference Range Interpretation [...] m DATA TO CALCULA TE ESTIMATED GFR. [id number] 03:08:00 Test Item Value Reference Range Interpretation Comments MAGNESIUM (BEAKER) 2.0 mg/dL 1.6-2.6 Specimen slightly (test code = 627) hemolyzed [id number] 03:08:00 Test Item Value Reference Range Interpretation Comments PHOSPHORUS (BEAKER) 2.6 mg/dL 2.3-4.7 Specimen slightly (test code = 604) hemolyzed HEPATIC FUNCTION [id number] 03:08:00 Test Item Value Reference Range Interpretation [...] 347) hemolyzed CBC W/PLT COUNT & AUTO [id number] 02:54:00 Test Item Value Reference Range Interpretation [...]
[2021-05-15 21:35] LABS: Absolute Lymphocytes (CBC) 0.7 K/uL (0.7-4.9); Hematocrit 31.4 % (36.0-45.0); Lymphocytes % 7.2 % (15.3-44.8); MPV 6.9 fL (7.6-11.3); RBC Red Blood Cell Count 3.73 M/uL (3.86-4.86)
[2021-05-15 21:47] LABS: ALT/SGPT 16 U/L (12-78); AST/SGOT 9 U/L (15-37); Albumin 3.4 g/dL (3.4-5.0); Alkaline Phosphatase 110 U/L (45-117); BUN Blood Urea Nitrogen 6 mg/dL (7-18); Bicarbonate 28 mmol/L (21-32); Bilirubin Direct 0.1 mg/dL (0-0.2); Bilirubin Total 0.6 mg/dL (0.2-1.0); Glucose Level 95 mg/dL (74-106); Lipase 100 U/L (73-393); Potassium 3.6 mmol/L (3.5-5.1); Protein, Total 7.1 g/dL (6.4-8.2); Sodium Level 138 mmol/L (136-145)
[2021-05-15] MEDS ORDERED: DICYCLOMINE HCL 20 MG/2 ML AMP IM ONE (22:09)
[2021-05-15] MEDS ORDERED: PROMETHAZINE INJ 25 MG/ML AMP ONE (22:09)
[2021-05-15] MEDS ORDERED: Ringers Lactate 1,000 ML IV ONE (22:11)
[2021-05-15 22:32] LABS: Blood Morphology Comment NOT SEEN (NOT SEEN); Platelet Estimate ADEQ
[2021-05-15] MEDS ORDERED: MEPERIDINE HCL 25 MG/ML SYR ONE (22:32)
[2021-05-15] MEDS ORDERED: HYDROMORPHONE HCL 2 MG/ML inj ONE (23:03)
[2021-05-16] MEDS ORDERED: HYDROMORPHONE HCL 2 MG/ML inj ONE (01:33)
--- NOTE | 2021-05-16 01:43 | ER ---
Nurse's Notes [facility] Name: Maris Arias Age: 40 yrs Sex: Female : 1980 Arrival Date: 05/15/2021 Time: 20:17 Bed 14 Private MD: Diagnosis: Nausea with vomiting, unspecified;Diarrhea, unspecified Presentation: 05/15 20:27 Chief complaint: Patient states: "I had chemo on and since then I have had ab2 n/v/d, so I cant keep my medicine down. I have a hx of chrons and I've had cdiff before and I think I may have it again.". Coronavirus screen: Vaccine status: Patient reports receiving the 2nd dose of the covid vaccine. Client denies travel out of the [place] in the last 14 days. At this time, the client does not indicate any symptoms associated with coronavirus-19. Ebola Screen: Patient negative for fever greater than or equal to 101.5 degrees Fahrenheit, and additional compatible Ebola Virus Disease symptoms Patient denies exposure to infectious person. Patient denies travel to an Ebola-affected area in the 21 days before illness onset. No symptoms or risks identified at this time. Initial Sepsis Screen: Does the patient meet any 2 criteria? No. Patient's initial sepsis screen is negative. Does the patient have a suspected source of infection? No. Patient's initial sepsis screen is negative. Risk Assessment: Do you want to hurt yourself or someone else? Patient reports no desire to harm self or others. Onset of symptoms is unknown. 20:27 Method Of Arrival: Ambulatory ab2 20:27 Acuity: CELESTE 3 ab2 Triage Assessment: 20:31 General: Appears in no apparent distress. uncomfortable, Behavior is calm, cooperative, ab2 appropriate for age. Pain: Complains of pain in generalized pain. Neuro: Level of Consciousness is awake, alert, obeys commands, Oriented to person, place, time, situation, Appropriate for age Braille Teacher are equal bilaterally Moves all extremities. Gait is steady, Speech is normal. Respiratory: No deficits noted. Airway is patent Respiratory effort is even, unlabored, Respiratory pattern is regular, symmetrical. GI: Reports lower abdominal pain, upper abdominal pain, diarrhea, intolerance of fluids, intolerance of food, nausea, vomiting. Historical: - Allergies: 20:30 No Known Allergies; ab2 - PMHx: 20:30 C DIFF; Crohn's; Depression; LYMPHOMA; ab2 - PSHx: 20:30 bowel resection; Cholecystectomy; hysterectomy; lymph node removal; ab2 - Immunization history:: Adult Immunizations up to date, Client reports receiving the 2nd dose of the Covid vaccine. - Social history:: Smoking status: Patient denies any tobacco usage or history of. Screenin:53 Abuse screen: Denies threats or abuse. Denies injuries from another. Nutritional lg3 screening: No deficits noted. Tuberculosis screening: No symptoms or risk factors identified. Fall Risk None identified. Assessment: 20:53 General: Appears in no apparent distress. uncomfortable, Behavior is calm, cooperative, lg3 appropriate for age. Pain: Complains of pain in generalized. Neuro: No deficits noted. Level of Consciousness is awake, alert, obeys commands, Oriented to person, place, time, situation. Cardiovascular: No deficits noted. Denies chest pain, shortness of breath, Capillary refill < 3 seconds JVD Patient's skin is warm and dry. Respiratory: No deficits noted. Airway is patent Trachea midline Respiratory effort is even, unlabored, Respiratory pattern is regular, symmetrical. GI: No deficits noted. Abdomen is round non-distended, Bowel sounds present X 4 quads. : No deficits noted. EENT: No deficits noted. No signs and/or symptoms were reported regarding the EENT system. Derm: No deficits noted. Skin is intact, is healthy with good turgor, Skin is dry. Musculoskeletal: No deficits noted. No signs and/or symptoms reported regarding the musculoskeletal system. Circulation, motion, and sensation intact. Range of motion: intact in all extremities. 05/16 00:32 Reassessment: Patient appears in no apparent distress at this time. No changes from lg3 previously documented assessment. Patient and/or family updated on plan of care and expected duration. Pain level reassessed. Patient is alert, oriented x 3, equal unlabored respirations, skin warm/dry/pink. 01:35 Reassessment: Patient and/or family updated on plan of care and expected duration. Pain lg3 level reassessed. Patient is alert, oriented x 3, equal unlabored respirations, skin warm/dry/pink. Vital Signs: 05/15 20:27 BP 113 / 71; Pulse 96; Resp 18; Temp 98.6(TE); Pulse Ox 96% on R/A; Weight 90.72 kg; ab2 Height 5 ft. 2 in. (157.48 cm); Pain 7/10; 05/16 00:31 BP 122 / 77; Pulse 78; Resp 17; Pulse Ox 98% on R/A; lg3 01:35 BP 118 / 72; Pulse 68; Resp 17; Pulse Ox 98% on R/A; lg3 05/15 20:27 Body Mass Index 36.58 (90.72 kg, 157.48 cm) ab2 ED Course: 05/15 20:17 Patient arrived in ED. jj6 20:30 Triage completed. ab2 20:31 Arm band placed on left wrist. ab2 20:43 Wilfredo Jeronimo PA is PHCP. jr8 20:43 Dane Velez MD is Attending Physician. jr8 20:43 Ronna Sahni, ELVIRA is Primary Nurse. lg3 20:55 Patient has correct armband on for positive identification. Placed in gown. Bed in low lg3 position. Call light in reach. Side rails up X 1. Pulse ox on. NIBP on. Door closed. Noise minimized. Warm blanket given. 21:15 Inserted saline lock: 24 gauge in right hand, using aseptic technique. Blood collected. as6 21:18 Basic Metabolic Panel Sent. as6 21:18 CBC with Diff Sent. as6 21:18 Hepatic Function Sent. as6 21:18 Lipase Sent. as6 22:03 C.difficile GDH Ag Sent. lg3 22:19 CDIFF Sent. lg3 05/16 00:08 CT Abd/Pelvis - Without Contrast In Process Unspecified. EDMS 01:36 No provider procedures requiring assistance completed. lg3 01:42 Molly Justice MD is Referral Physician. jr8 01:52 IV discontinued, intact, bleeding controlled, No redness/swelling at site. Pressure lg3 dressing applied. Administered Medications: 05/15 22:19 Drug: Ringers - Lactated Ringers Solution 1000 ml Route: IV; Rate: bolus; Site: right lg3 hand; 05/16 01:53 Follow up: Response: No adverse reaction; IV Status: Completed infusion; IV Intake: lg3 1000ml 05/15 22:19 Drug: Promethazine 12.5 mg Route: IVP; Site: right hand; lg3 22:19 Follow up: Response: No adverse reaction lg3 22:19 Drug: Bentyl (dicyclomine) 20 mg Route: IM; Site: right gluteus; lg3 22:19 Follow up: Response: No adverse reaction lg3 22:31 Drug: Demerol (meperidine) 25 mg Route: IVP; Site: right hand; lg3 22:31 Follow up: Response: No adverse reaction; RASS: Alert and Calm (0) lg3 23:05 Drug: Dilaudid (HYDROmorphone) 1 mg Route: IVP; Site: right hand; lg3 05/16 01:27 Follow up: Response: No adverse reaction lg3 01:33 Drug: Dilaudid (HYDROmorphone) 1 mg Route: IVP; Site: right hand; lg3 01:33 Follow up: Response: No adverse reaction lg3 Intake: 01:53 IV: 1000ml; Total: 1000ml. lg3 Outcome: 01:42 Discharge ordered by MD. jiménez 01:51 Discharged to home ambulatory, with significant other. lg3 01:51 Condition: stable 01:51 Discharge instructions given to patient, significant other, Instructed on discharge instructions, follow up and referral plans. 01:53 Patient left the ED. lg3 Signatures: Dispatcher [employer] EDMS Wilfredo Jeronimo PA PA jr8 Ronna Sahni RN RN lg3 Maris [email or web address] Mg Summers RN RN as6 Geronimo Lozada2 Corrections: (The following items were deleted from the chart) 00:31 00:31 BP 122 / ???; Pulse 78bpm; Resp 17bpm; Pulse Ox 98% RA; lg3 lg3
--- NOTE | 2021-05-16 01:43 | EDPHYS ---
Physician Documentation [facility] Name: Maris Arias Age: 40 yrs Sex: Female : 1980 Arrival Date: 05/15/2021 Time: 20:17 Bed 14 Private MD: ED Physician Dane Velez HPI: 05/15 22:57 This 40 yrs old Female presents to ER via Ambulatory with complaints of Post chemo jr8 treatment, possible dehydration, CDiff symptoms. 22:57 The patient has experienced similar episodes in the past, a few times. The patient has jr8 not recently seen a physician. Patient currently undergoing chemotherapy for Non Hodgkins lymphoma. Stated that her first round of chemo gave her c-diff. Second round cause n/v/d as well. Just completed third round this past and now having n/v/d. Worried she may have c-diff again . Historical: - Allergies: 20:30 No Known Allergies; ab2 - PMHx: 20:30 C DIFF; Crohn's; Depression; LYMPHOMA; ab2 - PSHx: 20:30 bowel resection; Cholecystectomy; hysterectomy; lymph node removal; ab2 - Immunization history:: Adult Immunizations up to date, Client reports receiving the 2nd dose of the Covid vaccine. - Social history:: Smoking status: Patient denies any tobacco usage or history of. ROS: 22:57 Eyes: Negative for injury, pain, redness, and discharge, ENT: Negative for injury, jr8 pain, and discharge, Neck: Negative for injury, pain, and swelling, Cardiovascular: Negative for chest pain, palpitations, and edema, Respiratory: Negative for shortness of breath, cough, wheezing, and pleuritic chest pain, Back: Negative for injury and pain, MS/Extremity: Negative for injury and deformity, Skin: Negative for injury, rash, and discoloration, Neuro: Negative for headache, weakness, numbness, tingling, and seizure. 22:57 Abdomen/GI: Positive for nausea, vomiting, and diarrhea, abdominal cramps. Exam: 22:57 Constitutional: This is a well developed, well nourished patient who is awake, alert, jr8 and in no acute distress. ENT: Nares patent. No nasal discharge, no septal abnormalities noted. Tympanic membranes are normal and external auditory canals are clear. Oropharynx with no redness, swelling, or masses, exudates, or evidence of obstruction, uvula midline. Mucous membranes moist. Neck: Trachea midline, no thyromegaly or masses palpated, and no cervical lymphadenopathy. Supple, full range of motion without nuchal rigidity, or vertebral point tenderness. No Meningismus. Cardiovascular: Regular rate and rhythm with a normal S1 and S2. No gallops, murmurs, or rubs. Normal PMI, no JVD. No pulse deficits. Respiratory: Lungs have equal breath sounds bilaterally, clear to auscultation and percussion. No rales, rhonchi or wheezes noted. No increased work of breathing, no retractions or nasal flaring. Abdomen/GI: Soft, mild tenderness diffusely, with normal bowel sounds. No distension or tympany. No guarding or rebound. No evidence of tenderness throughout. Back: No spinal tenderness. No costovertebral tenderness. Full range of motion. Skin: Warm, dry with normal turgor. Normal color with no rashes, no lesions, and no evidence of cellulitis. MS/ Extremity: Pulses equal, no cyanosis. Neurovascular intact. Full, normal range of motion. Neuro: Awake and alert, GCS 15, oriented to person, place, time, and situation. Cranial nerves II-XII grossly intact. Motor strength 5/5 in all extremities. Sensory grossly intact. Vital Signs: 20:27 BP 113 / 71; Pulse 96; Resp 18; Temp 98.6(TE); Pulse Ox 96% on R/A; Weight 90.72 kg; ab2 Height 5 ft. 2 in. (157.48 cm); Pain 7/10; 05/16 00:31 BP 122 / 77; Pulse 78; Resp 17; Pulse Ox 98% on R/A; lg3 01:35 BP 118 / 72; Pulse 68; Resp 17; Pulse Ox 98% on R/A; lg3 05/15 20:27 Body Mass Index 36.58 (90.72 kg, 157.48 cm) ab2 MDM: 05/15 20:44 Patient medically screened. jr8 05/16 01:41 Data reviewed: vital signs, nurses notes, lab test result(s), radiologic studies, CT jr8 scan. Data interpreted: Pulse oximetry: on room air is 98 %. Interpretation: normal. Counseling: I had a detailed discussion with the patient and/or guardian regarding: the historical points, exam findings, and any diagnostic results supporting the discharge/admit diagnosis, lab results, radiology results, the need for outpatient follow up, Oncology, to return to the emergency department if symptoms worsen or persist or if there are any questions or concerns that arise at home. Response to treatment: the patient's symptoms have markedly improved after treatment, patient is well hydrated. Tolerating PO fluids. ED course: Patient already on PO flagyl at home. Will wait to see what C-Diff antigen comes back with tomorrow before escalating. Patient will have Dr. Reyna check on the results tomorrow. Knows to come back if worse . 05/15 20:44 Order name: Basic Metabolic Panel; Complete Time: 21:53 [facility] 05/15 20:44 Order name: CBC with Diff; Complete Time: 22:34 [facility] 05/15 20:44 Order name: Hepatic Function; Complete Time: 21:53 [facility] 05/15 20:44 Order name: Lipase; Complete Time: 21:53 [facility] 05/15 21:39 [facility] Order name: Manual Differential; Complete Time: 22:34 [facility] 05/15 22:34 Order name: CT Abd/Pelvis - Without Contrast [facility] 05/15 20:44 Order name: IV Saline Lock; Complete Time: 21:17 [facility] 05/15 20:44 Order name: Labs collected and sent; Complete Time: 21:17 [facility] Administered Medications: 05/15 22:19 Drug: Ringers - Lactated Ringers Solution 1000 ml Route: IV; Rate: bolus; Site: right lg3 hand; 05/16 01:53 Follow up: Response: No adverse reaction; IV Status: Completed infusion; IV Intake: lg3 1000ml 05/15 22:19 Drug: Promethazine 12.5 mg Route: IVP; Site: right hand; lg3 22:19 Follow up: Response: No adverse reaction lg3 22:19 Drug: Bentyl (dicyclomine) 20 mg Route: IM; Site: right gluteus; lg3 22:19 Follow up: Response: No adverse reaction lg3 22:31 Drug: Demerol (meperidine) 25 mg Route: IVP; Site: right hand; lg3 22:31 Follow up: Response: No adverse reaction; RASS: Alert and Calm (0) lg3 23:05 Drug: Dilaudid (HYDROmorphone) 1 mg Route: IVP; Site: right hand; lg3 05/16 01:27 Follow up: Response: No adverse reaction lg3 01:33 Drug: Dilaudid (HYDROmorphone) 1 mg Route: IVP; Site: right hand; lg3 01:33 Follow up: Response: No adverse reaction lg3 Disposition: 05:59 Co-signature as Attending Physician, Dane Velez MD. [email or web address] Disposition Summary: 05/16/21 01:42 Discharge Ordered Location: Home jr8 Problem: new jr8 Symptoms: have improved jr8 Condition: Stable jr8 Diagnosis - Nausea with vomiting, unspecified jr8 - Diarrhea, unspecified jr8 Followup: jr8 - With: Molly Justice MD - When: 24 Hours - Reason: Recheck today's complaints, Continuance of care, Re-evaluation by your physician Discharge Instructions: - Discharge Summary Sheet jr8 - Diarrhea, Adult jr8 - Nausea, Adult jr8 Forms: - Medication Reconciliation Form jr8 - Thank You Letter jr8 - Antibiotic Education jr8 - Prescription Opioid Use jr8 Signatures: Dispatcher [employer] EDMS Wilfredo Jeronimo PA PA jr8 Ronna Sahni RN RN 3 Dane Velez MD MD 7 Geronimo Lozada ab2 Corrections: (The following items were deleted from the chart) 05/15 22:29 21:41 CBC Smear Scan ordered. EDMS EDMS 22:36 22:11 Abdomen Pelvis W Con+CT.RAD.BRZ ordered. EDMS EDMS 05/16 01:37 05/15 23:19 SARS-COV-2 RT PCR+MOL.LAB.BRZ ordered. EDMS EDMS
[2021-05-16 02:44] VITALS: TEMP 98.6
[2021-05-16 02:45] VITALS: O2SAT 98
[2021-05-16 02:47] VITALS: BP 118/72
[2021-05-16 12:35] LABS: C.diff Antigen/Toxin Ag neg : Tox neg (NEG : NEG)
--- NOTE | 2021-05-16 14:55 | RAD REPORT ---
EXAM DESCRIPTION: CT - Abdomen Pelvis Wo Contrast - 05/16/2021 6:27 am CLINICAL HISTORY: 40 years, Female, ABD PAIN COMPARISON: 04/29/2021 TECHNIQUE: Multiple transaxial tomograms of the abdomen and pelvis were performed from the lung base s to the symphysis pubis 5 mm slice thickness at 5 mm interval reconstruction, without administration of IV and oral contrast. Multiplanar reformats in the sagittal and coronal plane were generated and reviewed. This exam was performed according to our departmental dose-optimization protocol, which includes auto mated exposure control, adjustment of the mA and/or kV according to patient size and/or use of iterat leila reconstruction technique. FINDINGS: The lack of IV and oral contrast limits evaluation of solid organs, subtle lesions cannot be excluded. The lung bases demonstrate to be clear. Grossly the unopacified liver, pancreas, spleen and adrenal glands demonstrate to be within normal li mits, no significant focal lesions were identified. Surgical clips within the gallbladder fossa cor respond to previous cholecystectomy. The kidneys demonstrate grossly unremarkable. There is no evidence for nephrolithiasis and/or hydro nephrosis. No focal masses were demonstrated. The ureters displays normal appearance with normal caliber, no hydroureter was seen. Grossly the unopacified stomach, small bowel and large bowel demonstrate to be within normal limits. There is no evidence for bowel dilatation/or free air. There is a status post right hemicolectomy. Th ere is questionable minimal mucosal thickening large bowel, perhaps suggesting mild inflammation. There is a status post supraumbilical anterior abdominal wall mesh hernia repair. The urinary bladder demonstrate to be within normal limits. The uterus is absent. There are no adnexa l masses The aorta demonstrate to be within normal limits. There is no retroperitoneal lymphadenopa thy. There is no evidence for ascites. The rest of the soft tissue demonstrate to be grossly unrema rkable. IMPRESSION: Status post right hemicolectomy. Questionable minimal mucosal large bowel, perhaps mild inflammation could be of consideration. Status post supraumbilical anterior abdominal wall mesh hernia repair. Status post cholecystectomy and hysterectomy. Electronically signed by: Caleb Piedra MD 05/16/2021 12:33 AM CDT Due to temporary technical issues with the PACS/Fluency reporting system, reports are being signed by the in house radiologists without review as a courtesy to insure prompt reporting. The interpreting radiologist is fully responsible for the content of the report.
== END 2021-05-16 01:53 | disposition home or self-care (01) ==
LOC: ER 20:13
DX: R19.7 Diarrhea, unspecified (principal); C85.90 Non-Hodgkin lymphoma, unspecified, unspecified site
CPT/HCPCS: 96365; 85025; 80048; 36415; 80076; 87324; 83690; 87449; 74176; 96375; 96372; 99284; 96366; J2550; J0500; J1170 ×2; J2175; J7120

== ENCOUNTER 2021-06-06 06:19 | Inpatient (IN) | payer BC ==
--- OUTSIDE RECORDS SUMMARY | 2021-06-06 06:22 | XMS REPORT | Clinical Summary ---
:1980 Author Organization [facility] Address [facility] [place] [address] Care Team Providers Name Role Phone Juwan Guerrero MD Primary Care Provider Allergies Not on File Medications Not on file Active Problems Not on file Encounters Date Type Specialty Care Team Description 03/13/2021 Lab Requisition [facility] MD Witson, Anne S., MD 02/28/2021 Ancillary Procedure Radiology Juwan Guerrero M D Cancer 02/20/2021 Travel after 06/06/2020 Social History Tobacco Use Types Packs/Day Years Used Date Never Assessed Sex Assigned at Date Recorded Female 02/20/2021 6:08 PM [employer]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 after 06/06/2020 Results Pathology Outside Interpretation (02/13/2021) Materials Accession#, Stained, Block, Unstained Collected Receiv ed [facility] Received A. 21:[id number], 24 SS, 5 BLOCKS, 0 USS 02/13/2021 022 Diagnosis Lymph node (left upper neck), excisional biopsy: [facility] Electronically signed by Sivan [...] but there are also follicular areas (20-30% [facility] ). Both the diffuse and foll icular [...] Note: H&E Disclaimer "Some tests reported here [facility] may have been developed and performance characteristics determined by [facility]. These tests have not been specifically cleared or approved by the [place]. Food and Drug Administration. If applicable, controls were reviewed and showed appropriate reactivity." Specimen Tissue Performing Organization Address City/State/ZIP Code Phon e Number [facility] [place] [address] [address] Sft Tiss Neck (01/30/2021 9:06 AM AUTOMATION TECHNICIAN) Anatomical Region Laterality Modality Neck Other Specimen Narrative Systemgenerated, Documentation - 021 9:06 AM AUTOMATION TECHNICIAN Study acquired at another institution. For comparison only. No MD Tin originated interpretation requested or a vailable. after 06/06/2020 Insurance Payer Benefit Plan / Subscriber ID Effective Dates Phone Addre ss Type Group [employer] POS [id number] 2020-Present [id number] [place] [address] Care Teams Viticulture Teacher Relationship Specialty Start Date End Date Juwan Guerrero MD PCP - General Lymphoma and Myeloma 02/21/21 [address] [place], [place] [id number]
--- OUTSIDE RECORDS SUMMARY | 2021-06-06 06:26 | XMS REPORT | Continuity of Care Document ---
:1980 Author Organization [facility] [place] t Address [address] [place] [address] Care Team Providers Name Role Phone [phone] Primary Care Physician Unavailable SYSTEM, NOT IN Attending Clinician Unavailable Fortino FELIX, M Attending Clinician Samira DONIS Attending Clinician RITESH Attending Clinician Unavailable Severiano BRYAN Attending Clinician Ritesh BRYAN Attending Clinician HARLAN Attending Clinician Unavailable PATRICIA Attending Clinician Unavailable Marc Hill MD Attending Clinician Jose Alfredo BRYAN, S. Attending Clinician Ricki Ardon MD Attending Clinician Ricki ARDON Attending Clinician Unavailable VIPUL Attending Clinician Unavailable AGATA, W Attending Clinician Unavailable Mariam LEE Attending Clinician Unavailable Mariam Lee MD Attending Clinician LAB90 Attending Clinician Unavailable Harlan YARN DRY ROOM WORKER-C Attending Clinician Job RN, T Attending Clinician Unavailable Green YARN DRY ROOM WORKER Attending Clinician Abigail YARN DRY ROOM WORKER Attending Clinician ABIGAIL Attending Clinician Unavailable Doctor Unassigned, Name Attending Clinician Unavailable Bernardo DUONG, S Attending Clinician Paz DO Attending Clinician RIVERA Attending Clinician Unavailable Lab, Fam Pob I Attending Clinician Unavailable Debra YARN DRY ROOM WORKER Attending Clinician AYO Attending Clinician Unavailable SYLVIA BECKWITH Attending Clinician Unavailable ИРИНА Admitting Clinician Unavailable RITESH Admitting Clinician Unavailable Ritesh BRYAN Admitting Clinician NICOLE Admitting Clinician Unavailable AYO Admitting Clinician Unavailable SYLVIA BECKWITH Admitting Clinician Unavailable Payers Payer Name Policy Type Policy Number Effective Date Expiration Date S ource [employer] - [id number] 2016 OUT OF STATE 00:00:00 BLUE CROSS BLUE [id number] 2020 MD Yan molina [place] PPO 00:00:00 [id number] 03/2020-[id number], [place] [address]UBI Problems Condition Condition Condition Status Onset Resolution Last Treating Co mments Source Name Details Category Date Date Treatment Clinician Date Acute Acute Disease Active Univers colitis colitis 3-19 ity of 00:00: [address] Colitis Colitis Disease Active Univers 3-17 ity of 00:00: [address] Depression Depression Disease Active K elsey -06 [place] 00:00: 00 Inflammato Inflammato Disease Active Overview : Karolina ry bowel ry bowel 06 Formattin Sey bold disease disease 00:00: g of this 00 note might be different from the original. Chrohns disease since age 14Had [address]es Dr. Johana Celestin st colon exam 2019Last Assessmen t & Plan: Formattin g of [...] abdominal 1-03 ity of pain pain 00:00: [place] [facility] Chills Chills Disease Active 2018-03 Univers 0-03 ity of 00:00: [place] [facility] C. C. Disease Active 2018-03 Univers difficile difficile 0-02 ity of diarrhea diarrhea 00:00: [place] [facility] Intractabl Intractabl Disease Active 2018-03 U nivers e vomiting e vomiting 0-01 it y of 00:00: [place] 00 Medical Branch History of History of [...] of cholelithi cholelithi 00:00: g of this [place] asi asis 00 note Medical might be Branch different from the original. Added automatic ally from request for surgery [id number] Abdominal Abdominal Disease Active Uni vers pain pain 6-28 ity of 00:00: [place] 00 Medical Branch Crohn Crohn Disease Active Univers disease disease 5-04 ity of 00:00: [place] 00 Medical Branch Generalize Generalize Disease Active [...] Morbid Morbid Disease Active Univers obesity obesity 2- ity of with body [place] body [place] mass [place] mass index 00 Me dical of of Branch 40.0-49.9 40.0-49.9 Morbid Morbid Disease Active Univers obesity obesity 2-01 ity of with body with body 00:[place] mass index mass index 00 Me dical of 50 or of 50 or Branch higher higher Allergies, Adverse Reactions, Alerts Allergy Allergy Status Severity Reaction(s) Onset Inactive Treating Comm ents Source Name Type Date Date Clinician NO KNOWN Drug Active Univers ALLERGIE Class ity of S [facility] NO KNOWN Allergy Active [facility] Social History Social Habit Start Date Stop Date Quantity Comments Source History SDOH Karolina polanco Alcohol Frequency History SDOH Karolina polanco Alcohol Std Drinks History CLARIBELOH Karolina polanco Alcohol Binge History of Karolina [place] tobacco use Exposure to Not sure [facility] of [facility]-CoV-2 [facility] (event) [place] Alcohol intake 2021-05-22 2021-05-22 Current drinker Laura [place] 00:00:00 00:00:00 of alcohol (finding) Tobacco use and 2021-05-22 2021-05-22 Smokeless tobacco Will [place] exposure 00:00:00 00:00:00 non-user Education 2021-05-18 2021-05-18 21 University of 00:00:00 00:00:00 [facility] Alcohol Comment 2021-01-25 2021-01-25 social Karolina Bales ybfreedom 00:00:00 00:00:00 Tobacco Comment 2021-01-25 2021-01-25 vape Karolina Bales ybfreedom 00:00:00 00:00:00 History SDOH 2018-12-03 2018-12-03 5 University o f Financial 00:00:00 00:00:00 [place] [facility] History [facility] Food 2018-12-03 2018-12-03 1 Univers ity of Worry 00:00:00 00:00:00 [place] [facility] History SDHI Food 2018-12-03 2018-12-03 1 Univers ity of Scarcity 00:00:00 00:00:00 [place] [facility] History [facility] 2018-12-03 2018-12-03 2 University o f Transport Med 00:00:00 00:00:00 [place] Medic al Branch History [facility] 2018-12-03 2018-12-03 2 University o f Transport Non-Med 00:00:00 00:00:00 [facility] edical Branch Sex Ass[birth year] At [birth year] F MD Christiansen on 00:00:00 00:00:00 Smoking Status Start Date Stop Date Source Ex-smoker 2021-05-22 00:00:00 2021-05-22 00:00:00 Karolina hansen Smokes tobacco daily 2021-01-18 00:00:00 Karolina Gal[place] Never smoker [facility] xa Medical Branch Current some 2019-01-05 00:00:00 [facility] smoker Medical Branch Medications Ordered Filled Start Stop Current Ordering Indication Dosage Frequency Signature Comments Components Source Medication Medication Date Date Medication? Clinician (SIG) Name Name FLUoxetine Yes 40mg Take 40 mg U nivers 40 mg 3-21 by mouth ity of capsule 23:14: at [place] 00 bedtime. Medical Branch estradioL Yes .5mg Take 0.5 Univ ers 0.5 mg 3-21 mg by ity of tablet 23:14: mouth [place] 00 daily. Medical Branch gabapentin Yes 300mg Take 300 Un alf 300 mg 3-21 mg by ity of capsule 23:14: mouth 3 [place] 00 (three) Medical times Branch daily. ALPRAZolam Yes 2mg Take 2 mg Un alf (XANAX) 2 3-21 by mouth ity of mg tablet 23:14: as needed Gaurang as 00 for Medical Anxiety. Branch Ustekinumab Yes Inject Courtney ey 45 MG/0.5ML 3-21 into the Seyb old subcutaneou 09:09: skin s Solution 40 Prefilled Syringe Fluoxetine Yes 40mg Take 40 mg K elsey HCl 40 MG 3-21 by mouth Seybol d oral 09:09: daily Capsule 40 Ustekinumab 2021- No Inject Toney sey (STELARA -22 05-21 into the Seybol d SC) 09:09: 00:00 skin Every 21 :00 8 Weeks Ustekinumab Yes inject Univ ers 45 mg/0.5 3-20 under the ity o f mL SC 11:24: skin. [place] injection 40 Medical Branch FLUoxetine Yes 40mg Take 40 mg U nivers 40 mg 3-20 by mouth ity of capsule 11:24: at [place] 40 bedtime. Medical Branch estradioL Yes .5mg Take 0.5 Univ ers 0.5 mg 3-20 mg by ity of tablet 11:24: mouth [place] 40 daily. Medical Branch gabapentin Yes 300mg Take 300 Un alf 300 mg 3-20 mg by ity of capsule 11:24: mouth 3 [place] 40 (three) Medical times Branch daily. ALPRAZolam Yes 2mg Take 2 mg Un alf (XANAX) 2 3-20 by mouth ity of mg tablet 11:24: as needed Gaurang as 40 for Medical Anxiety. Branch Ustekinumab Yes inject Univ ers 45 mg/0.5 3-20 under the ity o f mL SC 11:24: skin. [place] injection 40 Medical Branch HYDROcodone Yes [id number] 1{tbl} Take 1 Un alf -acetaminop 3-20 tablet by ity of hen 10-325 00:00: mouth [place] mg tablet 00 every 6 Medical (six) Branch hours as needed for Pain (scale 7-10). Indication s: acute pain HYDROcodone Yes [id number] 1{tbl} Take 1 Un alf -acetaminop 3-20 tablet by ity of hen 10-325 00:00: mouth [place] mg tablet 00 every 6 Medical (six) Branch hours as needed for Pain (scale 7-10). Indication s: acute pain HYDROcodone Yes Karolina -Acetaminop 3-20 Seybold hen 10-325 00:00: MG oral 00 Tablet KCL 2021- No 40meq 40 mEq, Univers (KLOR-CON 05-20 Oral, ity of M20) tablet 15:00: 14:34 ONCE, 1 [place] 40 mEq 00 :00 dose, On Medical Sat Branch 05/20/21 at 1000, Routine morpHINE 2021-0 2021- No 2mg 2 mg, Slow Un alf injection 2 05-20 IV Push, ity of mg 10:15: 10:01 ONCE, 1 [place] 00 :00 dose, On Medical Sat Branch 05/20/21 at 0515, Routine HYDROcodone 2021-0 Yes 1{tbl} 1 tablet, Univers -acetaminop 05-20 Oral, ity of hen (NORCO) 09:05: Q6HPRN, [place] as 10-325 mg 22 Starting Medica l tablet 1 on Sat Branch tablet 05/20/21 at 0405, Until Discontinu ed, Routine, Pain (scale 4-6) loperamide 0 Yes 2mg 2 mg, Univer s (IMODIUM 05-19 Oral, ity of A-D) 23:15: Q6HPRN, [place] capsule 2 23 Starting Medica l mg on Sat Branch 05/19/21 at 1815, Until Discontinu ed, Routine, Diarrhea morpHINE 2021-0 Yes 2mg 2 mg, Slow Uni vers injection 2 05-19 IV Push, ity of mg 21:15: Q3HPRN, [place] 00 Starting Medical on Sat Branch 05/19/21 at 1615, Until Discontinu ed, Routine, Pain (scale 7-10) NaCl 0.9% 2021-0 Yes 1000mL at 125 Univ ers (NS) IV 3-18 mL/hr, IV ity of infusion 20:15: [place], [place] 1,000 mL 00 CONTINUOUS Medic al , Starting Branch on Sat05/19/21 at 1515, Until Discontinu ed, Routine KCL 2021-0 2021- No 40meq 40 mEq, Univers (KLOR-CON 05-19 Oral, ity of M20) tablet 14:00: 14:03 ONCE, 1 [place] 40 mEq 00 :00 dose, On Medical Fri Branch 05/19/21 at 0900, Routine KCL 2021-0 2021- No 40meq 40 mEq, Univers (KLOR-CON 05-19 Oral, ity of M20) tablet 10:45: 10:58 ONCE, 1 [place] 40 mEq 00 :00 dose, On Medical Fri Branch 05/19/21 at 0545, Routine FLUoxetine 2021-0 Yes 40mg 40 mg, Unive rs (PROZAC) 05-19 Oral, QHS, ity o f capsule 40 04:15: First dose [place] mg 00 (after Medical last Branch modificati on) on [facility] 05/18/21 at 2315, Until Discontinu ed, Routine morpHINE 2021- No 2mg 2 mg, Slow Un alf injection 2 05-19 IV Push, ity of mg 04:02: 21:13 [facility] [place] 15 :29 Starting Medical on [place] Branch 05/18/21 at 2302, Until Sat05/19/21 at 1613, Routine, Pain (scale 7-10) ondansetron 0 Yes 4mg 4 mg, Slow Univers (ZOFRAN 05-19 IV Push, ity of (PF)) 02:54: Q6HP, [place] injection 4 28 Starting Medi parth mg on [facility] Branch 05/18/21 at 2154, Until Discontinu ed, Routine, Nausea and Vomiting (N/V) HYDROcodone 2021-2021- No 1{tbl} 1 tablet, Univers -acetaminop 05-19 Oral, ity of hen (NORCO) 02:54: 04:02 Q6RN, [place] 10-325 mg 25 :44 Starting Medica l tablet 1 on [facility] tablet 05/18/21 at 2154, Until [facility] 05/18/21 at 2302, Routine, Pain (scale 7-10) acetaminoph 2021-0 Yes 650mg 650 mg, Un alf en 05-19 Oral, ity of (TYLENOL) 02:54: Q6HPRNLancing, [place] tablet 650 20 Starting Medic al mg on [facility] Branch 05/18/21 at 2154, Until Discontinu ed, Routine, Pain (scale 1-3) piperacilli 2021-0 2021- No 3.375g 3.375 g, Univers n-tazobacta 05-19 IV ity of m (ZOSYN) 02:15: 03:34 [place]gyback, [place] 3.375 g in 00 :00 ONCE, 1 Medica l NaCl 0.9% dose, On Branch (NS) 50 mL [place] MINI-BAG 05/18/21 at 2115, Administer over 30 Minutes, 50 mL
R mishel for Anti-Infec tive: Documented Infection< br>Documen garo Infection Site: Abdominal< br>Duratio n of Therapy: 7 days ondansetron No 4mg 4 mg, Slow Univers (ZOFRAN 05-19 IV Push, ity of (PF)) 00:30: 23:21 ONCE, 1 [place] injection 4 00 :00 dose, On Medi parth mg [place] Branch 05/18/21 at 1930, LEWIS FENTanyl PF 2021- No 100ug 100 mcg, Univers (SUBLIMAZE 05-18 Slow IV ity o f (PF)) 22:48: 22:53 Push, [place] injection 00 :00 ONCE, 1 Medical 100 mcg dose, On Branch Jade 05/18/21 at 1800, STAT morpHINE No 4mg 4 mg, Slow Un alf injection 4 05-18 IV Push, ity of mg 21:30: 20:28 ONCE, 1 [place] 00 :00 dose, On Medical J[place] Branch 05/18/21 at 1630, STAT ciprofloxac 2021- No 400mg 400 mg, IV Univers in in 5 % 05-18 Piggyback, ity of dextrose 21:00: 01:03 Q12H ABX, [place] as (CIPRO) 00 :07 First dose Medica l piggyback on [place] Branch 400 mg 05/18/21 at 1600, Until Discontinu ed, Administer over 60 Minutes, 200 mL
Reas on for Anti-Infec tive: Empiric Therapy for Suspected Infection< br>Empiric Therapy Site: Abdominal< br>Duratio n of therapy: 72 hours NaCl 0.9% 2021- No 1000mL at 999 Uni vers (NS) bolus 05-18 mL/hr, ity of infusion 21:00: 21:18 1,000 mL, [place] as 1,000 mL 00 :00 IV Medical Infusion, Branch ONCE, 1 dose, On [place] 05/18/21 at 1600, STAT metroNIDAZO 2021- No 500mg 500 mg, IV Univers LE in NaCl 05-18 Infusion, ity of (iso-os) 21:00: 21:29 ONCE, 1 [place] (FLAGYL 00 :00 dose, On Medical I.V.) RTU [place] Branch IV infusion 05/18/21 at 500 mg 1600, Administer over 75 Minutes, 100 mL
R mishel for Anti-Infec tive: Empiric Therapy for Suspected Infection< br>Empiric Therapy Site: Abdominal< br>Duratio n of therapy: 72 hours iopamidol 2021- No [id number] 120mL 120 mL, Univers (ISOVUE 05-18 Intravenou ity o f 370-500 mL) 20:38: 20:38 s, ONCE, 1 [place] injection 00 :00 dose, On Medica l 120 mL [place] Branch 05/18/21 at 1600, Routine NaCl 0.9% 2021- No 1000mL at 999 Uni vers (NS) bolus 05-18 mL/hr, ity of infusion 19:15: 19:37 1,000 mL, [place] as 1,000 mL 00 :00 IV Medical Infusion, Branch ONCE, 1 dose, On [place] 05/18/21 at 1415, STAT FENTanyl PF 2021- No 100ug 100 mcg, Univers (SUBLIMAZE 05-18 Slow IV ity o f (PF)) 19:15: 18:27 Push, [place] injection 00 :00 ONCE, 1 Medical 100 mcg dose, On Branch [place] 05/18/21 at 1415, STAT proMETHazin 2021- No 12.5mg 12.5 mg, Univers e 05-18 IV ity of (PHENERGAN) 19:15: 18:27 Piggyback, [place] 12.5 mg in 00 :00 ONCE, 1 Medica l NaCl 0.9% dose, On Branch (NS) 50 mL Jade IV 05/18/21 at piggyback 1415, LEWIS HYDROcodone Yes Karolina -Acetaminop 2-25 Seybold hen (NORCO) 00:00: 5-325 MG 00 oral Tablet Diphenoxyla Yes Karolina te-Atropine 2-12 Seybold 2.5-0.025 00:00: MG oral 00 Tablet Gabapentin Yes Karolina 300 MG oral 1-26 Seybold Capsule 00:00: 00 Stelara 90 0 Yes Karolina MG/ML 1-18 Seybold subcutaneou 00:00: s Solution 00 Prefilled Syringe Alprazolam Yes [id number] .5mg [id number] Take 1 Karolina 0.5 MG oral 1-11 [id number] tablet Seybold Tablet 00:00: 3D (0.5 mg 00 total) by mouth 3 times daily as needed for sleep or anxiety diazePAM 2 Yes Karolina MG oral 1-11 Seybold Tablet 00:00: 00 Estradiol 2020-03 Yes .5mg Take 1 Karolina 0.5 MG oral 1-29 tablet Seybol d Tablet 00:00: (0.5 mg 00 total) by mouth daily Ustekinumab 2020-03 Yes Inject Courtney ey (STELARA 1-24 into the Seybold SC) 11:16: skin Every 33 8 Weeks Ustekinumab 2020-03 Yes Inject Courtney ey 45 MG/0.5ML 1-24 into the Seyb old subcutaneou 11:16: skin s Solution 33 Prefilled Syringe Estrogens 2020-03 Yes [id number] Take one Karolina Conjugated 1-24 tablet Seybold (Premarin) 00:00: daily 0.3 MG oral 00 Tablet Ustekinumab 2020-03 Yes Inject Courtney ey 45 MG/0.5ML 1-17 into the Seyb old subcutaneou 10:59: skin s Solution 00 Prefilled Syringe Ustekinumab 2020-03 Yes Inject Courtney ey (STELARA 1-17 into the Seybold SC) 10:57: skin Every 52 8 Weeks hydrOXYzine 2020-03 Yes [id number] 10mg Q.[id number] Take 1 Karolina HCl 10 MG 1-17 [id number] tablet (10 Seybold oral Tablet 00:00: 3D mg total) 00 by mouth 3 times daily as needed for itching or anxiety Fluoxetine 2020-03 Yes [id number] 40mg Take 1 K elsey HCl 40 MG 1-17 capsule Seybold oral 00:00: (40 mg Capsule 00 total) by mouth daily hydrOXYzine 2020-03 Yes [id number] 10mg Q.[id number] Take 1 Karolina HCl 10 MG 1-17 [id number] tablet (10 Seybold oral Tablet 00:00: 3D mg total) 00 by mouth 3 times daily as needed for itching or anxiety Fluoxetine 2020-03 Yes [id number] 40mg Take 1 K elsey HCl 40 MG 1-17 capsule Seybold oral 00:00: (40 mg Capsule 00 total) by mouth daily hydrOXYzine 2020-03 Yes [id number] 10mg Q.[id number] Take 1 Karolina HCl 10 MG 1-17 [id number] tablet (10 Seybold oral Tablet 00:00: 3D mg total) 00 by mouth 3 times daily as needed for itching or anxiety Fluoxetine 2020-03 Yes [id number] 40mg Take 1 K elsey HCl 40 MG 1-17 capsule Seybold oral 00:00: (40 mg Capsule 00 total) by mouth daily HYDROcodone 2020- No 1{tbl} 1 tablet, Univers -acetaminop 10-02 Oral, ity of hen (NORCO 07:45: 06:47 ONCE, 1 [place] as 5) 5-325 mg 00 :00 dose, [place] Med ical tablet 1 10/02/20 at Branch tablet 0245, LEWIS dicyclomine No 20mg 20 mg, Uni vers (BENTYL) 10-02 Intramuscu ity of injection 06:45: 05:56 lar, ONCE, [place] 20 mg 00 :00 1 dose, Medical 10/02/20 Branch at 0145, Routine proMETHazin No 25mg 25 mg, IV Univers e 10-02 Piggyback, ity of (PHENERGAN) 06:45: 06:45 ONCE, 1 [place] 25 mg in 00 :00 dose, Sun Medica l NaCl 0.9% 10/02/20 at [facility] h (NS) 50 mL 0145, 50 piggyback mL ondansetron 4mg 4 mg, Slow Univers (ZOFRAN - 08 IV Push, ity of (PF)) 05:15: 04:37 ONCE, 1 [place] injection 4 00 :00 dose, Sun Med ical mg 10/02/20 at Branch 0015, LEWIS Ustekinumab Yes inject Univ ers 45 mg/0.5 8-01 under the ity o f mL SC 04:11: skin. [place] injection 16 Medical Branch Ustekinumab Yes inject Univ ers 45 mg/0.5 8-01 under the ity o f mL SC 04:11: skin. [place] injection 16 Medical Branch Ustekinumab Yes inject Univ ers 45 mg/0.5 8-01 under the ity o f mL SC 04:11: skin. [place] injection 16 Medical Branch Ustekinumab Yes inject Univ ers 45 mg/0.5 8-01 under the ity o f mL SC 04:11: skin. [place] injection 16 Medical Branch Ustekinumab Yes inject Univ ers 45 mg/0.5 8-01 under the ity o f mL SC 04:11: skin. [place] injection 16 Medical Branch Ustekinumab Yes inject Univ ers 45 mg/0.5 8-01 under the ity o f mL SC 04:11: skin. [place] injection [address] [place] [address] Branch Promethazin Yes 25mg Q6H Take 25 mg Karolina e HCl 25 MG 8-01 by mouth Seyb old oral Tablet 00:00: every 6 00 hours as needed Promethazin 2020-0 Yes 25mg Q6H Take 25 mg Karolina e HCl 25 MG 8-01 by mouth Seyb old oral Tablet 00:00: every 6 00 hours as needed proMETHazin 2020-0 Yes [id number] 25mg Take 1 Univers e 25 mg 8-01 tablet by ity of tablet 00:00: mouth [place] every 6 Medical (six) Branch hours as needed for N/V unresponsi ve to Ondansetro n. proMETHazin 2020-0 Yes [id number] 25mg Take 1 Univers e 25 mg 8-01 tablet by ity of tablet 00:00: mouth [place] [address] every 6 Medical (six) Branch hours as needed for N/V unresponsi ve to Ondansetro n. proMETHazin Yes [id number] 25mg Take 1 Univers e 25 mg 8-01 tablet by ity of tablet 00:00: mouth [place] 00 every 6 Medical (six) Branch hours as needed for N/V unresponsi ve to Ondansetro n. proMETHazin Yes [id number] 25mg Take 1 Univers e 25 mg 8-01 tablet by ity of tablet 00:00: mouth [place] 00 every 6 Medical (six) Branch hours as needed for N/V unresponsi ve to Ondansetro n. proMETHazin Yes [id number] 25mg Take 1 Univers e 25 mg 8-01 tablet by ity of tablet 00:00: mouth [place] 00 every 6 Medical (six) Branch hours as needed for N/V unresponsi ve to Ondansetro n. proMETHazin Yes [id number] 25mg Take 1 Univers e 25 mg 8-01 tablet by ity of tablet 00:00: mouth [place] 00 every 6 Medical (six) Branch hours as needed for N/V unresponsi ve to Ondansetro n. proMETHazin Yes [id number] 25mg Take 1 Univers e 25 mg 8-01 tablet by ity of tablet 00:00: mouth [place] 00 every 6 Medical (six) Branch hours as needed for N/V unresponsi ve to Ondansetro n. proMETHazin Yes [id number] 25mg Take 1 Univers e 25 mg 8-01 tablet by ity of tablet 00:00: mouth [place] 00 every 6 Medical (six) Branch hours as needed for N/V unresponsi ve to Ondansetro n. Promethazin 2021- No 25mg Q.25D Take 25 mg Karolina e HCl 25 MG 8-01 - by mouth Sey bold oral Tablet 00:00: 00:00 every 6 00 :00 hours as needed ondansetron 2020- No 4mg 4 mg, Slow Univers (ZOFRAN 5-19 18 IV Push, ity of (PF)) 00:15: 23:18 ONCE, 1 [place] injection 4 00 :00 dose, Tue Med ical mg 07/19/20 at Branch 1915, Routine morpHINE No 4mg 4 mg, Slow Un alf injection 4 5-19 05-18 IV Push, ity of mg 00:15: 23:18 ONCE, 1 [place] 00 :00 dose, [facility] Medical 07/19/20 at Branch 1915, STAT NaCl 0.9% 2020- No 500mL at 999 Univ ers (NS) bolus 5-18 05-18 mL/hr, 500 it y of infusion 22:30: 23:18 mL, IV [place] 500 mL 00 :00 Infusion, Medical ONCE, 1 [place] dose, [facility] 07/19/20 at 1730, STAT Ondansetron Yes 4mg Q.[id number] Take 4 mg Karolina (ZOFRAN) 4 5-18 [id number] by mouth Seybold MG oral 00:00: 3D every 8 TABLET 00 hours as DISPERSIBLE needed Ondansetron Yes 4mg Q8H Take 4 mg K elsey (ZOFRAN) 4 5-18 by mouth Seybo ld MG oral 00:00: every 8 TABLET 00 hours as DISPERSIBLE needed Ondansetron 0 Yes 4mg Q8H Take 4 mg K elsey (ZOFRAN) 4 5-18 by mouth Seybo ld MG oral 00:00: every 8 TABLET 00 hours as DISPERSIBLE needed ondansetron 0 Yes [id number] 4mg Take 1 Univers (ZOFRAN 5-18 tablet by ity of ODT) 4 mg 00:00: mouth [place] disintegrat 00 every 8 Medic al ing tablet (eight) Branch hours as needed for Nausea and Vomiting (N/V). ondansetron 2020-0 Yes [id number] 4mg Take 1 Univers (ZOFRAN 5-18 tablet by ity of ODT) 4 mg 00:00: mouth [place] disintegrat 00 every 8 Medic al ing tablet (eight) Branch hours as needed for Nausea and Vomiting (N/V). ondansetron 2020-0 Yes [id number] 4mg Take 1 Univers (ZOFRAN 5-18 tablet by ity of ODT) 4 mg 00:00: mouth [place] disintegrat 00 every 8 Medic al ing tablet (eight) Branch hours as needed for Nausea and Vomiting (N/V). ondansetron 2021-0 Yes [id number] 4mg Take 1 Univers (ZOFRAN 5-18 tablet by ity of ODT) 4 mg 00:00: mouth [place] disintegrat 00 every 8 Medic al ing tablet (eight) Branch hours as needed for Nausea and Vomiting (N/V). ondansetron 2021-0 Yes [id number] 4mg Take 1 Univers (ZOFRAN 5-18 tablet by ity of ODT) 4 mg 00:00: mouth [place] disintegrat 00 every 8 Medic al ing tablet (eight) Branch hours as needed for Nausea and Vomiting (N/V). ondansetron 2020-0 Yes [id number] 4mg Take 1 Univers (ZOFRAN 5-18 tablet by ity of ODT) 4 mg 00:00: mouth [place] disintegrat 00 every 8 Medic al ing tablet (eight) Branch hours as needed for Nausea and Vomiting (N/V). ondansetron 2020-0 Yes [id number] 4mg Take 1 Univers (ZOFRAN 5-18 tablet by ity of ODT) 4 mg 00:00: mouth [place] disintegrat 00 every 8 Medic al ing tablet (eight) Branch hours as needed for Nausea and Vomiting (N/V). ondansetron 2020-0 Yes [id number] 4mg Take 1 Univers (ZOFRAN 5-18 tablet by ity of ODT) 4 mg 00:00: mouth [place] disintegrat 00 every 8 Medic al ing tablet (eight) Branch hours as needed for Nausea and Vomiting (N/V). ondansetron 2020-0 Yes [id number] 4mg Take 1 Univers (ZOFRAN 5-18 tablet by ity of ODT) 4 mg 00:00: mouth [place] disintegrat 00 every 8 Medic al ing tablet (eight) Branch hours as needed for Nausea and Vomiting (N/V). Fluoxetine 2020-0 Yes [id number] 20mg Take 1 K elsey HCl 20 MG 4-06 capsule Seybold oral 00:00: (20 mg Capsule 00 total) by mouth daily Fluoxetine 2020-0 Yes 20mg Take 20 mg K elsey HCl 20 MG 4-06 by mouth Seybol d oral 00:00: Capsule 00 Fluoxetine 2020-0 Yes [id number] 20mg Take 1 K elsey HCl 20 MG 4-06 capsule Seybold oral 00:00: (20 mg Capsule 00 total) by mouth daily Fluoxetine 2020-0 Yes 20mg Take 20 mg K elsey HCl 20 MG 4-06 by mouth Seybol d oral 00:00: Capsule 00 FLUoxetine 2020-0 Yes 20mg Take 20 mg U nivers 20 mg 4-06 by mouth. ity of capsule 00:00: [place] [facility] FLUoxetine 2020-0 Yes 20mg Take 20 mg U nivers 20 mg 4-06 by mouth. ity of capsule 00:00: [place] [facility] FLUoxetine 2020-0 Yes 20mg Take 20 mg U nivers 20 mg 4-06 by mouth. ity of capsule 00:00: [place] [facility] FLUoxetine 2020-0 Yes 40mg Take 40 mg U nivers 20 mg 4-06 by mouth. ity of capsule 00:00: [place] [facility] FLUoxetine 2020-0 Yes 40mg Take 40 mg U nivers 20 mg 4-06 by mouth. ity of capsule 00:00: [place] [facility] FLUoxetine 2020-0 Yes 20mg Take 20 mg U nivers 20 mg 4-06 by mouth. ity of capsule 00:00: [place] [facility] FLUoxetine 2020-0 Yes 20mg Take 20 mg U nivers 20 mg 4-06 by mouth. ity of capsule 00:00: [address] FLUoxetine 2020-0 Yes 20mg Take 20 mg U nivers 20 mg 4-06 by mouth. ity of capsule 00:00: [place] [facility] Fluoxetine 2020-0 2022- No [id number] 20mg Take 1 Karolina HCl 20 MG 4-06 03-21 capsule Seybol d oral 00:00: 00:00 (20 mg Capsule 00 :00 total) by mouth daily Fluoxetine 2020-0 2022- No 20mg Take 20 mg Karolina HCl 20 MG 4-06 03-21 by mouth Seybo ld oral 00:00: 00:00 Capsule 00 :00 lactobacill 2020-0 Yes [id number] 1{tbl} Take 1 Univers us 5-30 tablet by ity of acidophilus 00:00: mouth 2 Gaurang as 25 million 00 (two) Medical cell -100 times Branch mg captab daily. lactobacill 2020-0 Yes [id number] 1{tbl} Take 1 Univers us 5-30 tablet by ity of acidophilus 00:00: mouth 2 Gaurang as 25 million 00 (two) Medical cell -100 times Branch mg captab daily. lactobacill 2019-0 Yes [id number] 1{tbl} Take 1 Univers us 5-30 tablet by ity of acidophilus 00:00: mouth 2 Gaurang as 25 million 00 (two) Medical cell -100 times Branch mg captab daily. lactobacill 2019-2020- No [id number] 1{tbl} Take 1 Univers us 5-30 07-31 [...] mg 03/28/19 at Branch 2114, LEWIS morpHINE 2019-2019- No 4mg 4 mg, Slow Un alf injection 4 03-29 IV Push, ity of mg 03:15: 02:07 ONCE, 1 [place] 00 :00 dose, Sat Medical 03/28/19 at Branch 2114, STAT diphenhydrA 2019- No 25mg 25 mg, Uni vers MINE 03-29 Slow IV ity of (BENADRYL) 03:15: 02:25 Push, [place] injection 00 :00 ONCE, 1 Medical 25 mg dose, Sat [place] 03/28/19 at 2114, STAT iohexol 2019- No 120mL 120 mL, Unive rs (OMNIPAQUE 03-29 Intravenou it y of 350 02:45: 02:32 s, ONCE, 1 [place] BULK-100 00 :00 dose, Sat Medica l mL) 03/28/19 at [place] injection 2044, 120 mL Routine ondansetron 2020- No 4mg 4 mg, Slow Univers (ZOFRAN 03-29 IV Push, ity of (PF)) 02:15: 01:11 ONCE, 1 [place] injection 4 00 :00 dose, Sat Med ical mg 03/28/19 at Branch 2015, LEWIS morpHINE 2019-0 2020- No 4mg 4 mg, Slow Un alf injection 4 03-29 IV Push, ity of mg 02:15: 01:11 ONCE, 1 [place] 00 :00 dose, Sat Medical 03/28/19 at Branch 2015, STAT traMADol 50 2020-0 Yes [id number] 50mg Take 1 Univers mg tablet 1-25 tablet by ity o f 00:00: mouth [place] 00 every 6 Medical (six) Branch hours as needed for Pain (scale 4-6). ondansetron 2020-0 Yes [id number] 8mg Take 1 Univers (ZOFRAN 1-25 tablet by ity of ODT) 8 mg 00:00: mouth [place] disintegrat 00 every 8 Medic al ing tablet (eight) Branch hours as needed for Nausea and Vomiting (N/V). traMADol 50 2020-0 Yes [id number] 50mg Take 1 Univers mg tablet 1-25 tablet by ity o f 00:00: mouth [place] 00 every 6 Medical (six) Branch hours as needed for Pain (scale 4-6). ondansetron 2020-0 Yes [id number] 8mg Take 1 Univers (ZOFRAN 1-25 tablet by ity of ODT) 8 mg 00:00: mouth [place] disintegrat 00 every 8 Medic al ing tablet (eight) Branch hours as needed for Nausea and Vomiting (N/V). traMADol 50 2020-0 Yes [id number] 50mg Take 1 Univers mg tablet 1-25 tablet by ity o f 00:00: mouth [place] 00 every 6 Medical (six) Branch hours as needed for Pain (scale 4-6). ondansetron 2020-0 Yes [id number] 8mg Take 1 Univers (ZOFRAN 1-25 tablet by ity of ODT) 8 mg 00:00: mouth [place] disintegrat 00 every 8 Medic al ing tablet (eight) Branch hours as needed for Nausea and Vomiting (N/V). traMADol 50 2020-0 Yes [id number] 50mg Take 1 Univers mg tablet 1-25 tablet by ity o f 00:00: mouth [place] 00 every 6 Medical (six) Branch hours as needed for Pain (scale 4-6). traMADol 50 2020-0 2020- No [id number] 50mg Take 1 Univers mg tablet 1-25 07-31 tablet by ity of 00:00: 00:00 mouth [place] 00 :00 every 6 Medical (six) Branch hours as needed for Pain (scale 4-6). ondansetron 2020-0 2021- No [id number] 8mg Take 1 Univers (ZOFRAN 1-25 05-18 tablet by broderick of [facility]) 8 mg 00:00: 00:00 mouth [place] disintegrat 00 :00 every 8 Medic al ing tablet (eight) Branch hours as needed for Nausea and Vomiting (N/V). Immunizations Ordered Filled Immunization Date Status Comments [facility] e Immunization Name Name Influenza Virus 2020-06-07 Completed Karolina lee Vaccine, No 00:00:00 Preserv, age 6 months and up Tdap- (Boostrix, 2020-06-07 Completed Karolina Walsh eybold Adacel) 00:00:00 Influenza Virus 2020-06-07 Completed Karolina lee Vaccine, No 00:00:00 Preserv, age 6 months and up Tdap- (Boostrix, 2020-06-07 Completed Karolina garaybold Adacel) 00:00:00 Influenza Virus 2020-06-07 Completed Karolina lee Vaccine, No 00:00:00 Preserv, age 6 months and up Tdap- (Boostrix, 2020-06-07 Completed Karolina Walsh eybold Adacel) 00:00:00 Influenza Virus 2020-06-07 Completed Universit y of Vaccine Quad IM 3+ 00:00:00 [facility] TDAP 2020-06-07 Completed [facility] 00:00:00 [facility] Influenza Virus 2020-06-07 Completed Universit y of Vaccine Quad IM 3+ 00:00:00 [facility] TDAP 2020-06-07 Completed [facility] 00:00:00 [facility] Influenza, 2014-02-17 Completed Karolina Galicia Seasonal, 00:00:00 Injectable, Preservative Free Influenza, 2014-02-17 Completed Karolina Galicia Seasonal, 00:00:00 Injectable, Preservative Free Influenza, 2014-02-17 Completed Karolina Galicia Seasonal, 00:00:00 Injectable, Preservative Free Influenza Virus 2014-02-17 Completed Universit y of Vaccine (3+ yrs) 00:00:00 [facility] Influenza Virus 2014-02-17 Completed Universit y of Vaccine (3+ yrs) 00:00:00 [facility] Hepatitis B, Adult 2010-12-20 Completed Karolina Balesybold (3 dose) 00:00:00 MMR- Measles, 2010-12-20 Completed Karolina Stuart old Mumps, Rubella 00:00:00 Hepatitis B, Adult 2010-12-20 Completed Karolina Seybold (3 dose) 00:00:00 MMR- Measles, 2010-12-20 Completed Karolina Stuart old Mumps, Rubella 00:00:00 Hepatitis B, Adult 2010-12-20 Completed Karolina Seybold (3 dose) 00:00:00 MMR- Measles, 2010-12-20 Completed Karolina Stuart old Mumps, Rubella 00:00:00 Hepatitis B, Adult 2010-12-20 Completed Karolina Seybold (3 dose) 00:00:00 MMR- Measles, 2010-12-20 Completed Karolina Stuart old Mumps, Rubella 00:00:00 Hepatitis B, Adult 2010-12-20 Completed Karolina Seybold (3 dose) 00:00:00 MMR- Measles, 2010-12-20 Completed Karolina Stuart old Mumps, Rubella 00:00:00 Hepatitis B, Adult 2010-12-20 Completed Karolina Seybold (3 dose) 00:00:00 MMR- Measles, 2010-12-20 Completed Karolina Stuart old Mumps, Rubella 00:00:00 HEP B, Adult Dosage 2010-12-20 Completed Unive rsity of 00:00:00 [facility] MMR 2010-12-20 Completed [facility] 00:00:00 [facility] HEP B, Adult Dosage 2010-12-20 Completed Unive rsity of 00:00:00 [facility] MMR 2010-12-20 Completed [facility] 00:00:00 [facility] Hepatitis B, Adult 2010-11-20 Completed Karolina Stuartold (3 dose) 00:00:00 MMR- Measles, 2010-11-20 Completed Karolina Stuart old Mumps, Rubella 00:00:00 HEPATITIS A- ADULT 2010-11-20 Completed Karolina Galicia 00:00:00 Tdap- (Boostrix, 2010-11-20 Completed Karolina hansen Adacel) 00:00:00 Hepatitis B, Adult 2010-11-20 Completed Karolina Galicia (3 dose) 00:00:00 MMR- Measles, 2010-11-20 Completed Karolina Seyb old Mumps, Rubella 00:00:00 Hepatitis B, Adult 2010-11-20 Completed Karolina Seybold (3 dose) 00:00:00 MMR- Measles, 2010-11-20 Completed Karolina Seyb old Mumps, Rubella 00:00:00 HEPATITIS A- ADULT 2010-11-20 Completed Karolina Seybold 00:00:00 Tdap- (Boostrix, 2010-11-20 Completed Karolina S eybold Adacel) 00:00:00 Hepatitis B, Adult 2010-11-20 Completed Karolina Seybold (3 dose) 00:00:00 MMR- Measles, 2010-11-20 Completed Karolina Seyb old Mumps, Rubella 00:00:00 Hepatitis B, Adult 2010-11-20 Completed Karolina Seybold (3 dose) 00:00:00 MMR- Measles, 2010-11-20 Completed Karolina Seyb old Mumps, Rubella 00:00:00 HEPATITIS A- ADULT 2010-11-20 Completed Karolina Seybold 00:00:00 Tdap- (Boostrix, 2010-11-20 Completed Karolina S eybold Adacel) 00:00:00 Hepatitis B, Adult 2010-11-20 Completed Karolina Seybold (3 dose) 00:00:00 MMR- Measles, 2010-11-20 Completed Karolina Seyb old Mumps, Rubella 00:00:00 HEP B, Adult Dosage 2010-11-20 Completed Unive rsity of 00:00:00 [facility] HEPATITIS A 2010-11-20 Completed University of 00:00:00 [facility] MMR 2010-11-20 Completed University of 00:00:00 [facility] TDAP 2010-11-20 Completed University of 00:00:00 [facility] HEP B, Adult Dosage 2010-11-20 Completed Unive rsity of 00:00:00 [facility] HEPATITIS A 2010-11-20 Completed University of 00:00:00 [facility] MMR 2010-11-20 Completed University of 00:00:00 [facility] TDAP 2010-11-20 Completed University of 00:00:00 [facility] History Of Chicken 1983-03-04 Completed Karolina Seybold Pox 00:00:00 History Of Chicken 1983-03-04 Completed Karolina Seybold Pox 00:00:00 History Of Chicken 1983-03-04 Completed Karolina Galicia Pox 00:00:00 Vital Signs Vital Name Observation Time Observation Value Comments Source Systolic blood 2021-05-22 14:00:00 120 mm[Hg] Karolina Seybold pressure Diastolic blood 2021-05-22 14:00:00 84 mm[Hg] Kelse y Seybold pressure Heart rate 2021-05-22 14:00:00 122 /min Karolina garaybocollin Body temperature 2021-05-22 14:00:00 36.39 Zulma Courtney garay Seybfreedom Respiratory rate 2021-05-22 14:00:00 16 /min Courtney Galicia Body height 2021-05-22 14:00:00 157.5 cm Karolina hansen Body weight 2021-05-22 14:00:00 92.534 kg Karolina garaybocollin BMI 2021-05-22 14:00:00 37.31 kg/m2 Karolina garaybocollin Systolic blood 2021-05-21 12:50:00 109 mm[Hg] Univer sity of [facility] Diastolic blood 2021-05-21 12:50:00 68 mm[Hg] Unive rsity of [facility] Heart rate 2021-05-21 12:50:00 93 /min [facility] Body temperature 2021-05-21 12:50:00 36.11 Zulma [facility] rate 2021-05-21 12:50:00 14 /min [facility] Oxygen saturation in 2021-05-21 12:50:00 93 /min [facility] Arterial blood by [facility] Pulse oximetry Branch Body weight 2021-05-21 08:49:00 91.989 kg [facility] BMI 2021-05-21 08:49:00 37.09 kg/m2 [facility] Body height 2021-05-19 03:18:00 157.5 cm [facility] Systolic blood 2021-01-25 17:11:00 128 mm[Hg] Karolina Seybold pressure Diastolic blood 2021-01-25 17:11:00 70 mm[Hg] Kelse y Seybold pressure Heart rate 2021-01-25 17:11:00 82 /min Karolina Walsh eybold Respiratory rate 2021-01-25 17:11:00 16 /min Courtney garay Seybold Body height 2021-01-25 17:11:00 157.5 cm Karolina Walsh eybold Body weight 2021-01-25 17:11:00 91.173 kg Karolina Walsh eybold BMI 2021-01-25 17:11:00 36.76 kg/m2 Karolina Walsh eybold Oxygen saturation in 2021-01-25 17:11:00 98 [...] Body weight 2021-01-18 16:52:00 91.173 kg Karolina garaybold BMI 2021-01-18 16:52:00 36.76 kg/m2 Karolina Walsh eybold Systolic blood 2020-11-02 17:28:00 117 mm[Hg] Univer sity of [facility] Diastolic blood 2020-11-02 17:28:00 75 mm[Hg] Unive rsity of [facility] Heart rate 2020-11-02 17:28:00 80 /min [facility] Respiratory rate 2020-11-02 17:28:00 20 /min [facility] Body height 2020-11-02 17:28:00 157.5 cm [facility] Body weight 2020-11-02 17:28:00 90.719 kg [facility] BMI 2020-11-02 17:28:00 36.58 kg/m2 [facility] Oxygen saturation in 2020-11-02 17:28:00 99 /min University of Arterial blood by [facility] Pulse oximetry Branch Systolic blood 2020-10-02 04:23:00 124 mm[Hg] Univer sity of pressure [place] [facility] Diastolic blood 2020-10-02 04:23:00 86 mm[Hg] Unive rsity of pressure [place] [facility] Heart rate 2020-10-02 04:23:00 76 /min Universi ty of [place] [facility] Respiratory rate 2020-10-02 04:23:00 17 /min Univ ersity of [place] [facility] Oxygen saturation in 2020-10-02 04:23:00 96 /min University of Arterial blood by [facility] Pulse oximetry Branch Body temperature 2020-10-02 03:27:00 37.11 Zulma Univ ersity of [place] [facility] Body height 2020-10-02 03:27:00 157.5 cm Universi ty of [place] [facility] [place] Body weight 2020-10-02 03:27:00 91.173 kg Universi ty of [place] [facility] BMI 2020-10-02 03:27:00 36.76 kg/m2 Universi ty of [place] [facility] Systolic blood 2020-07-20 00:00:00 144 mm[Hg] Univer sity of pressure [place] [facility] Diastolic blood 2020-07-20 00:00:00 90 mm[Hg] Unive rsity of pressure [place] [facility] Heart rate 2020-07-20 00:00:00 69 /min Universi ty of [place] [facility] Respiratory rate 2020-07-20 00:00:00 18 /min Univ ersity of [place] [facility] Oxygen saturation in 2020-07-20 00:00:00 95 /min University of Arterial blood by [facility] Pulse oximetry Branch Body temperature 2020-07-19 21:57:00 37.22 Zulma Univ ersity of [place] [facility] Body weight 2020-07-19 21:57:00 99.338 kg Universi ty of [place] [facility] BMI 2020-07-19 21:57:00 40.06 kg/m2 [facility]i ty [facility] [place] [facility] Systolic blood 2019-03-29 03:00:00 112 mm[Hg] Univer sity of pressure [place] [facility] Diastolic blood 2019-03-29 03:00:00 66 mm[Hg] [facility] Heart rate 2019-03-29 03:00:00 76 /min [facility] Respiratory rate 2019-03-29 03:00:00 16 /min [facility] Oxygen saturation in 2019-03-29 03:00:00 98 /min [facility] Arterial blood by [facility] Pulse oximetry [place] Body temperature 2019-03-29 00:03:00 36.39 Zulma [facility] Body height 2019-03-29 00:03:00 157.5 cm [facility] Body weight 2019-03-29 00:03:00 99.791 kg [facility] BMI 2019-03-29 00:03:00 40.24 kg/m2 [facility] Procedures Procedure Date / Time Performing Clinician Source Performed LS RAPID STREP ASSAY-LAB 2021-05-22 14:18:41 Dario Hogan TEST BASIC METABOLIC PANEL 2021-05-21 10:01:00 Jose Robles [facility] (NA, K, CL, CO2, GLUCOSE, Medica l Branch BUN, CREATININE, CA) CBC WITH DIFF 2021-05-21 10:01:00 Jose Robles [facility] BASIC METABOLIC PANEL 2021-05-20 10:12:00 [facility] (NA, K, CL, CO2, GLUCOSE, Medica l Branch BUN, CREATININE, CA) CBC WITH DIFF 2021-05-20 10:12:00 [facility] FECAL PATHOGENS BY PCR 2021-05-19 19:09:00 Jackie Awad [facility] BASIC METABOLIC PANEL 2021-05-19 08:37:00 [facility] (NA, K, CL, CO2, GLUCOSE, Medica l Branch BUN, CREATININE, CA) CBC WITH DIFF 2021-05-19 08:37[facility] [facility] [address] [facility] 2021-05-18 20:45:00 Ronnie العلي [facility] FECES CULTURE 2021-05-18 18:26:00 Ronnie العلي [facility] OCCULT (GUAIAC) BLOOD 2021-05-18 18:26:00 Ronnie العلي [facility] CLOSTRIDIUM DIFFICILE 2021-05-18 18:26:00 Ronnie العلي [facility] TOXIN [facility] Branch LACTIC ACID WHOLE BLOOD 2021-05-18 18:23:00 Ronnie العلي [facility] BLOOD CULTURE SCREEN 2021-05-18 18:21:00 Ronnie العلي [facility] COMP. METABOLIC PANEL 2021-05-18 18:21:00 Ronnie العلي [facility] ([id number]) Medical [place] CBC WITH DIFF 2021-05-18 18:21:00 Severiano Ronnie [facility] PROTHROMBIN TIME / INR 2021-05-18 18:21:00 Ronnie العلي [facility] ACTIVATED PARTIAL 2021-05-18 18:21:00 Severiano [facility] THRMPLAS SHAHRIAR [facility] URINALYSIS 2021-05-18 18:21:00 Ronnie العلي [facility] COVID-19 (ID NOW RAPID 2021-05-18 18:21:00 Ronnie العلي [facility] TESTING) Medical Branch LAB ONLY COVID 2021-05-18 18:21:00 Ronnie العلي [facility] INTERPRETATION [facility] CONSENT/REFUSAL FOR 2021-05-18 17:31:08 [facility] DIAGNOSIS AND TREATMENT [facility] [place] NOTICE OF PRIVACY 2021-05-18 17:30:52 Doctor Unassigned, [facility] PRACTICES [facility] [place] PATHOLOGY OUTSIDE 2021-02-13 00:00:00 Miranda Veliz MD INTERPRETATION OSI CT SFT TISS NECK 2021-01-30 15:06:00 Juwan Ardon MD nderson ASSIGNMENT OF BENEFITS 2020-11-02 16:11:47 Doctor Unassigned, [facility] [place] [facility] LIPASE 2020-10-02 04:35:00 Jose Rodriguez [facility] COMP. METABOLIC PANEL 2020-10-02 04:35:00 Jose Rodriguez [facility] ([id number]) Medical Branch CBC WITH DIFF 2020-10-02 04:35:00 Jose Rodriguez [facility] URINALYSIS 2020-10-02 04:32:00 Jose Rodriguez [facility] CONSENT/REFUSAL FOR 2020-10-02 03:12:32 Doctor Rosie [facility] DIAGNOSIS AND TREATMENT [facility] COVID-19 (ID NOW RAPID 2020-07-20 00:02:00 Singer Zen [facility] TESTING) Medical Branch LIPASE 2020-07-19 22:26:00 Singer [facility] COMP. METABOLIC PANEL 2020-07-19 22:26:00 Zen Paz [facility] ([id number]) Medical Branch CBC WITH DIFF 2020-07-19 22:26:00 Singer [facility] URINALYSIS 2020-07-19 22:26:00 Singer [facility] NOTICE OF PRIVACY 2020-07-19 21:38:41 Doctor Rosie, [facility] PRACTICES [facility] [place] CONSENT/REFUSAL FOR 2020-07-19 21:37:52 Doctor Rosie [facility] DIAGNOSIS AND TREATMENT [facility] [place] CT ABDOMEN PELVIS W 2019-03-29 02:36:34 Jose Rodriguez [facility] CONTRAST Medical Branch POCT TEST 2019-03-29 00:48:00 Jose Rodriguez [facility] Medical Branch LIPASE 2019-03-29 00:47:00 Jose Rodriguez [facility] COMP. METABOLIC PANEL 2019-03-29 00:47:00 Jose Rodriguez [facility] ([id number]) Medical Branch CBC WITH DIFFERENTIAL 2019-03-29 00:47:00 Jose Rodriguez [facility] URINALYSIS 2019-03-29 00:47:00 Jose Rodriguez [facility] NOTICE OF PRIVACY 2019-03-28 23:58:28 Doctor Rosie [facility] PRACTICES [facility] [place] CONSENT/REFUSAL FOR 2019-03-28 23:55:31 Doctor [facility]igned, [place] [facility] DIAGNOSIS AND TREATMENT [facility] Encounters Start End Encounter Admission Attending Care Care Encounter Source Date/Time Date/Time Type Type Clinicians Facility Department ID 2021-02-21 Outpatient SYSTEM, [facility] [id number] 16:13:12 PROVIDER Kuldip guidry 2021-01-02 Emergency [facility] [id number] Univers 12:14:09 ity of [facility] 2021-01-01 Emergency X [facility] ERT [id number] Univers 19:53:57 ity of [facility] 2021-01-01 Emergency [facility] [id number] Univers 19:53:02 ity of [facility] 2021-05-23 2021-05-23 Transition CARMITA Freitas [id number] Univers 00:00:00 00:00:00 of Care Chrissie NAGY [id number] i ty of [place] [id number] [place] [id number] [facility] 403 Branch 2021-05-22 2021-05-22 Office Myron Hogan [id number] Karolina 09:00:00 09:15:00 Visit Dario Owen [id number] rosa [id number] 2021-05-18 2021-05-21 Inpatient X RITESH [facility] JULIO CÉSAR [id number] Univers 12:37:00 11:14:00 JACKIE ity of [facility] 2021-05-18 2021-05-21 [facility] Ronnie العلي [facility] [id number] Univers 12:37:00 11:14:00 Encounter Jackie Awad ESTHER [id number] ity of [place] [id number] [place] [facility] [id number] [facility] 081 Branch 2021-03-23 2021-03-23 Outpatient KAROLINA CLAROS [id number] Karolina 00:00:00 00:00:00 ANNABELLA calderón 2021-03-23 2021-03-23 Outpatient KAROLINA GOMEZ [id number] Karolina 00:00:00 00:00:00 AHMED Seybol d 2021-03-14 2021-03-14 Outpatient KAROLINA CLAROS [id number] Karolina 00:00:00 00:00:00 ANNABELLA Seybol d 2021-03-01 2021-03-01 Outpatient KAROLINA CLAROS [id number] Karolina 00:00:00 00:00:00 ANNABELLA Seybol d 2021-02-28 2021-02-28 Outpatient ERIC ARDON [facility] [id number] 09:05:06 09:05:06 JUWAN Kuldipelo guidry 2021-02-09 2021-02-09 Outpatient SATNAM MOORE [id number] Karolina 00:00:00 00:00:00 MD RILEY Seybol d 2021-02-07 2021-02-07 Outpatient KAROLINA MOORE [id number] Karolina 09:50:00 09:50:00 Seybol d 2021-02-07 2021-02-07 Outpatient ESTRELLA PARMAR [id number] Karolina 00:00:00 00:00:00 Seybol d 2021-02-06 2021-02-06 Outpatient ESTRELLA PARMAR [id number] Karolina 00:00:00 00:00:00 Seybol d 2021-02-01 2021-02-01 Outpatient KAROLINA MOORE [id number] Karolina 12:40:00 12:40:00 Seybol d 2021-01-30 2021-01-30 Outpatient KAROLINA LEE [id number] Karolina 00:00:00 00:00:00 EUGENIA Seybol d 2021-01-25 2021-01-25 Office JEAN Lee [id number] Karolina 11:30:00 12:00:00 Visit Eugenia Becerra [id number] Seybfreedom [id number] [id number] 2021-01-20 2021-01-20 Outpatient KAROLINA CLAROS [id number] Karolina 00:00:00 00:00:00 ANNABELLA Seybol d 2021-01-18 2021-01-18 Outpatient LAB90 KAROLINA KAROLINA [id number] Karolina 11:55:00 11:55:00 Seybol d 2021-01-18 2021-01-18 Office CarolinageethaMyron [id number] Karolina 10:49:52 11:19:52 Visit Annabella Weaver [id number] Se rosa [id number] [id number] 2020-11-04 2020-11-04 Letter ROBERTA Kaiser [id number] Univers 00:00:00 00:00:00 (Out) Yajaira AJ [id number] it y of [facility] [id number] Gaurang as [id number] [facility] 019 [place] 2020-11-02 2020-11-02 Urgent Nasreen Ledezma [facility] [id number] Univers 11:13:05 11:33:05 Care [facility] [id number] ity of [place] [id number] Gaurang as Bebo?Blea [id number] Medical Office Building 2020-11-02 2020-11-02 Outpatient R [facility] [id number] Univers 11:20:00 11:20:00 [id number] ity of [facility] 2020-11-02 2020-11-02 [facility] [id number] Univers 11:20:00 11:20:00 RANDY georgette o f [facility] 2020-11-02 2020-11-02 Orders Doctor GRANADOS 1.2.840.114 [id number] Univers 00:00:00 00:00:00 Only UnassignedJEAN MARIE [id number] ity of [place] [facility] [id number] Gaurang as [id number] [facility] 009 Branch 2020-10-01 2020-10-02 [facility] [id number] Univers 22:30:00 01:56:00 Jose Pereira [id number] i ty of [place] [id number] [facility] [id number] [facility] 084 [place] 2020-07-19 2020-07-19 Emergency Paz, [facility] [id number] Univers 16:54:00 19:37:00 Zen Pereira [id number] i ty of [place] [id number] [facility] [id number] [place] [id number] [place] 2020-07-19 2020-07-19 Orders Doctor ROBERTA 1.2.840.114 [id number] Univers 00:00:00 00:00:00 Only Unassigned, JEAN MARIE [id number] ity of [facility] [id number] Gaurang as [id number] [place] [address] Branch 2020-06-07 2020-06-07 Outpatient LAB90 KAROLINA MOORE [id number] Karolina 10:00:00 10:00:00 Seybol d 2020-06-07 2020-06-07 Outpatient AGATA ESTRELLARicki MOORE [id number] Karolina 08:30:00 08:30:00 Seybol d 2020-02-04 2020-02-05 Inpatient E NICOLE BL MED [id number] BL 11:00:00 16:58:00 JOSEPH 2019-09-11 2019-09-11 Laboratory Lab, Adc Fam Pob I [facility] 1.2. [id number] Univers 14:09:42 14:29:42 Only Savana Richardson [id number] ity of [place] [id number] Gaurang as Professio [id number] [place] [facility] [facility] [address] 2019-09-11 2019-09-11 Outpatient R [facility] [id number] [facility] 14:20:00 14:20:[id number] [facility] 2019-09-11 2019-09-11 Outpatient R [facility] [id number] [facility] 14:20:00 14:20:[address] [facility] 2019-07-29 2019-08-01 Outpatient X AYO, [facility] [id number] Univers 14:08:13 12:04:00 MACK villafana of [facility] 2019-03-28 2019-03-28 [facility] [id number] Univers 18:12:42 22:01:00 Jose Pereira [id number] i praveena wise [place] [id number] [facility] [id number] [address] Results Test Description Test Time Test Comments Results Result Comments Source LS RAPID STREP ASSAY-LAB TEST 2021-05-22 14:39:14 Test Item Value Reference Range Interpretation Comme nts STREP GP A AG, IA (test code = Negative Negative Infection due to Strep A cannot 73422-9) be ruled-out be cause the antigen present in the sample may be below th e detection limit of the te st. Specimen has been sent for c onfirmation of negative. Lab Interpretation (test code = Normal 21769-2) [facility] [id number] 15:41:00 Test Item Value Reference Range Interpretation Comments WBC (test code = See_Comment L [Automated 6690-2) message] The sy stem which generated this result transmitted reference range : 4.30 - 11.10 10*3/?L. The reference range was not used to interpret this result as normal/abnormal . RBC (test code = See_Comment L [Automated 969-8) message] The sy stem which generated this result transmitted reference range : 3.93 - 5.25 10*6/?L. The reference range was not used to interpret this result as normal/abnormal . HGB (test code = 8.8 g/dL 11.6-15.0 L 718-7) HCT (test code = 26.6 % 35.7-45.2 L 4544-3) MCV (test code = 87.8 fL 80.6-95.5 787-2) MCH (test code = 29.0 pg 25.9-32.8 785-6) MCHC (test code = 33.1 g/dL 31.6-35.1 786-4) RDW-SD (test code = 42.5 fL 39.0-49.9 75348-7) RDW-CV (test code = 13.9 % 12.0-15.5 788-0) PLT (test code = See_Comment L [Automated 777-3) message] The sy stem which generated this result transmitted reference range : 166 - 358 10*3/ ?L. The reference r lenard was not used to interpret this result as normal/abnormal . MPV (test code = 10.0 fL 9.5-12.9 55650-3) NRBC/100 WBC (test See_Comment [Automat ed code = 7327390978) message] The system which generated this result transmitted reference range : 0.0 - 10.0 /100 WBCs. The refer ence range was not u sed to interpret th is result as normal/abnormal . NRBC x10^3 (test code See_Comment [Auto mated = 7367561424) message] The s ystem which generated this result transmitted reference range : 10*3/?L. The reference range was not used to interpret this result as normal/abnormal . SEG % (test code = 34 % 33-76 27582-4) BAND % (test code = 18 % 0-1 H 63571-7) META % (test code = 4 % See_Comment H [Automa garo 76812-1) message] The sy stem which generated this result transmitted reference range : <=0. The refere nce range was not u sed to interpret th is result as normal/abnormal . MYELO % (test code = 3 % See_Comment H [Autom ated 63279-9) message] The sy stem which generated this result transmitted reference range : <=0. The refere nce range was not u sed to interpret th is result as normal/abnormal . LYMPH % (test code = 30 % 14-54 16774-1) MONO % (test code = 8 % 0-4 H 28817-6) EOS % (test code = 3 % 0-3 19577-5) ANC (test code = 1.53 10*3/uL 1.88-7.09 L 753-4) DOHLE BODIES (test Present A code = 7792-5) TOXIC CHANGES (test Present A code = 803-7) GIANT PLATELETS (test Present See_Comment A [Auto mated code = 5908-9) message] The system which generated this result transmitted reference range : (none). The reference range was not used to interpret this result as normal/abnormal . Lab Interpretation Abnormal (test code = 96774-7) [facility] METABOLIC PANEL (NA, K, CL, CO2, GLUCOSE, BUN, CREATININE, CA)2021-05-21 12:04:23 Test Item Value Reference Range Interpretation Comments NA (test code = 143 mmol/L 135-145 3698122478) K (test code = 3.8 mmol/L 3.5-5.0 1001482827) CL (test code = 113 mmol/L 98-108 H 7033850429) CO2 TOTAL (test code = 22 mmol/L 23-31 L 6778415198) AGAP (test code = 2-16 5490580831) BUN (test code = <2 7-23 L 9983987658) GLUCOSE (test code = 114 mg/dL 70-110 H 1683472036) CREATININE (test code = 0.43 mg/dL 0.50-1.04 L 0872628388) CALCIUM (test code = 8.4 mg/dL 8.6-10.6 L 6070910042) eGFR (test code = mL/min/1.73m2 0832053731) SCOTT (test code = SCOTT) Association of [...] tests). Lab Interpretation Abnormal (test code = 63737-1) [facility] METABOLIC PANEL (NA, K, CL, CO2, GLUCOSE, BUN, CREATININE, CA)2021-05-20 12:32:44 Test Item Value Reference Range Interpretation Comments NA (test code = 137 mmol/L 135-145 4403179815) K (test code = 3.3 mmol/L 3.5-5.0 L 2624758979) CL (test code = 105 mmol/L 98-108 4894876078) CO2 TOTAL (test code = 23 mmol/L 23-31 8139407907) AGAP (test code = 2-16 6668111423) BUN (test code = <2 7-23 L 2696164727) GLUCOSE (test code = 98 mg/dL 70-110 1209954845) CREATININE (test code = 0.40 mg/dL 0.50-1.04 L 3955225815) CALCIUM (test code = 7.8 mg/dL 8.6-10.6 L 7192817772) eGFR (test code = mL/min/1.73m2 9209056284) SCOTT (test code = CSOTT) Association of Glomerular Filtration Rate (GFR) and [...] tests). Lab Interpretation Abnormal (test code = 52845-1) [facility] WITH [id number] 12:03:45 Test Item Value Reference Range Interpretation Comments WBC (test code = See_Comment LL [Automated 6690-2) message] The sy stem which generated this result transmitted reference range : 4.30 - 11.10 10*3/?L. The reference range was not used to interpret this result as normal/abnormal . RBC (test code = See_Comment L [Automated 789-8) message] The sy stem which generated this result transmitted reference range : 3.93 - 5.25 10*6/?L. The reference range was not used to interpret this result as normal/abnormal . HGB (test code = 8.2 g/dL 11.6-15.0 L 718-7) HCT (test code = 24.3 % 35.7-45.2 L 4544-3) MCV (test code = 85.9 fL 80.6-95.5 787-2) MCH (test code = 29.0 pg 25.9-32.8 785-6) MCHC (test code = 33.7 g/dL 31.6-35.1 786-4) RDW-SD (test code = 39.9 fL 39.0-49.9 59538-4) RDW-CV (test code = 12.9 % 12.0-15.5 788-0) PLT (test code = See_Comment L [Automated 777-3) message] The sy stem which generated this result transmitted reference range : 166 - 358 10*3/ ?L. The reference r lenard was not used to interpret this result as normal/abnormal . MPV (test code = 10.0 fL 9.5-12.9 23616-3) IPF % (test code = 2.1 % 1.3-7.7 Platelet count 7891628798) measured by fluorescence method. NRBC/100 WBC (test See_Comment [Automat ed code = 5777343800) message] The system which generated this result transmitted reference range : 0.0 - 10.0 /100 WBCs. The refer ence range was not u sed to interpret th is result as normal/abnormal . NRBC x10^3 (test code See_Comment [Auto mated = 7849707979) message] The s ystem which generated this result transmitted reference range : 10*3/?L. The reference range was not used to interpret this result as normal/abnormal . GRAN MAT (NEUT) % 29.1 % (test code = 770-8) IMM GRAN % (test code 14.20 % = 9621667902) LYMPH % (test code = 29.2 % 736-9) MONO % (test code = 20.8 % 5905-5) EOS % (test code = 4.2 % 713-8) BASO % (test code = 2.5 % 706-2) GRAN MAT x10^3(ANC) 0.35 10*3/uL 1.88-7.09 L (test code = 6511089159) IMM GRAN x10^3 (test 0.17 10*3/uL 0.00-0.06 H code = 4559677991) LYMPH x10^3 (test code 0.35 10*3/uL 1.32-3.29 L = 731-0) MONO x10^3 (test code 0.25 10*3/uL 0.33-0.92 L = 742-7) EOS x10^3 (test code = 0.05 10*3/uL 0.03-0.39 711-2) BASO x10^3 (test code 0.03 10*3/uL 0.01-0.07 = 704-7) Lab Interpretation Abnormal (test code = 63992-8) [facility] with [id number] 11:04:29 Test Item Value Reference Range Interpretation Comments WBC (test code = See_Comment LL [Automated 6690-2) message] The sy stem which generated this result transmitted reference range : 4.30 - 11.10 10*3/?L. The reference range was not used to interpret this result as normal/abnormal . RBC (test code = See_Comment L [Automated 789-8) message] The sy stem which generated this result transmitted reference range : 3.93 - 5.25 10*6/?L. The reference range was not used to interpret this result as normal/abnormal . HGB (test code = 8.6 g/dL 11.6-15.0 L 718-7) HCT (test code = 25.6 % 35.7-45.2 L 4544-3) MCV (test code = 85.3 fL 80.6-95.5 787-2) MCH (test code = 28.7 pg 25.9-32.8 785-6) MCHC (test code = 33.6 g/dL 31.6-35.1 786-4) RDW-SD (test code = 41.0 fL 39.0-49.9 09314-8) RDW-CV (test code = 13.2 % 12.0-15.5 788-0) PLT (test code = See_Comment L [Automated 777-3) message] The sy stem which generated this result transmitted reference range : 166 - 358 10*3/ ?L. The reference r lenard was not used to interpret this result as normal/abnormal . MPV (test code = 10.4 fL 9.5-12.9 04610-2) IPF % (test code = 3.1 % 1.3-7.7 Platelet count 6328837634) measured by fluorescence method. NRBC/100 WBC (test See_Comment [Automat ed code = 3294424415) message] The system which generated this result transmitted reference range : 0.0 - 10.0 /100 WBCs. The refer ence range was not u sed to interpret th is result as normal/abnormal . NRBC x10^3 (test code See_Comment [Auto mated = 7652118855) message] The s ystem which generated this result transmitted reference range : 10*3/?L. The reference range was not used to interpret this result as normal/abnormal . GRAN MAT (NEUT) % 20.7 % (test code = 770-8) IMM GRAN % (test code 2.10 % = 4568880859) LYMPH % (test code = 41.7 % 736-9) MONO % (test code = 25.0 % 5905-5) EOS % (test code = 6.3 % 713-8) BASO % (test code = 4.2 % 706-2) GRAN MAT x10^3(ANC) 0.10 10*3/uL 1.88-7.09 L (test code = 0824505685) IMM GRAN x10^3 (test <0.03 0.00-0.06 code = 2700975558) LYMPH x10^3 (test code 0.20 10*3/uL 1.32-3.29 L = 731-0) MONO x10^3 (test code 0.12 10*3/uL 0.33-0.92 L = 742-7) EOS x10^3 (test code = 0.03 10*3/uL 0.03-0.39 711-2) BASO x10^3 (test code <0.03 0.01-0.07 = 704-7) BANDS (test code = Increased A 7949500894) DOHLE BODIES (test Present A code = 7792-5) PLT ESTIMATE (test Decreased Normal A code = 9317-9) Lab Interpretation Abnormal (test code = 52334-3) [facility] Metabolic Panel (NA, K, CL, CO2, GLUCOSE, BUN, CREATININE, CA)2021-05-19 09:30:28 Test Item Value Reference Range Interpretation Comments NA (test code = 138 mmol/L 135-145 7188560258) K (test code = 3.4 mmol/L 3.5-5.0 L 2645908681) CL (test code = 102 mmol/L 98-108 8577255218) CO2 TOTAL (test code = 27 mmol/L 23-31 2526459727) AGAP (test code = 2-16 8035261867) BUN (test code = 3 mg/dL 7-23 L 9552042928) GLUCOSE (test code = 96 mg/dL 70-110 6448331168) CREATININE (test code = 0.43 mg/dL 0.50-1.04 L 0315764548) CALCIUM (test code = 8.0 mg/dL 8.6-10.6 L 0348793826) eGFR (test code = mL/min/1.73m2 7983631391) SCOTT (test code = SCOTT) Association of [...] tests). Lab Interpretation Abnormal (test code = 87104-8) [facility] WITH [id number] 19:24:45 Test Item Value Reference Range Interpretation Comments WBC (test code = See_Comment LL [Automated 0690-2) message] The sy stem which generated this result transmitted reference range : 4.30 - 11.10 10*3/?L. The reference range was not used to interpret this result as normal/abnormal . RBC (test code = See_Comment L [Automated 729-8) message] The sy stem which generated this result transmitted reference range : 3.93 - 5.25 10*6/?L. The reference range was not used to interpret this result as normal/abnormal . HGB (test code = 9.8 g/dL 11.6-15.0 L 718-7) HCT (test code = 28.7 % 35.7-45.2 L 4544-3) MCV (test code = 83.2 fL 80.6-95.5 787-2) MCH (test code = 28.4 pg 25.9-32.8 785-6) MCHC (test code = 34.1 g/dL 31.6-35.1 786-4) RDW-SD (test code = 39.0 fL 39.0-49.9 75751-1) RDW-CV (test code = 13.0 % 12.0-15.5 788-0) PLT (test code = See_Comment L [Automated 777-3) message] The sy stem which generated this result transmitted reference range : 166 - 358 10*3/ ?L. The reference r lenard was not used to interpret this result as normal/abnormal . MPV (test code = 9.7 fL 9.5-12.9 71135-0) IPF % (test code = 2.3 % 1.3-7.7 Platelet count 4827823561) measured by fluorescence method. NRBC/100 WBC (test See_Comment [Automat ed code = 0324978025) message] The system which generated this result transmitted reference range : 0.0 - 10.0 /100 WBCs. The refer ence range was not u sed to interpret th is result as normal/abnormal . NRBC x10^3 (test code <0.01 See_Comment [Auto mated = 7504140732) message] The s ystem which generated this result transmitted reference range : 10*3/?L. The reference range was not used to interpret this result as normal/abnormal . GRAN MAT (NEUT) % 37.9 % (test code = 770-8) IMM GRAN % (test code 3.00 % = 9015545916) LYMPH % (test code = 36.4 % 736-9) MONO % (test code = 15.2 % 5905-5) EOS % (test code = 4.5 % 713-8) BASO % (test code = 3.0 % 706-2) GRAN MAT x10^3(ANC) 0.25 10*3/uL 1.88-7.09 L (test code = 5600807491) IMM GRAN x10^3 (test <0.03 0.00-0.06 code = 3141063559) LYMPH x10^3 (test code 0.24 10*3/uL 1.32-3.29 L = 731-0) MONO x10^3 (test code 0.10 10*3/uL 0.33-0.92 L = 742-7) EOS x10^3 (test code = 0.03 10*3/uL 0.03-0.39 711-2) BASO x10^3 (test code <0.03 0.01-0.07 = 704-7) BANDS (test code = Increased A 0534625907) DOHLE BODIES (test Present A code = 7792-5) Lab Interpretation Abnormal (test code = 86385-2) [facility]. METABOLIC PANEL (85932)2021-05-18 18:49:49 Test Item Value Reference Range Interpretation Comments NA (test code = 135 mmol/L 135-145 4010085756) K (test code = 3.8 mmol/L 3.5-5.0 6619768919) CL (test code = 97 mmol/L 98-108 L 5870893997) CO2 TOTAL (test code = 30 mmol/L 23-31 8444833099) AGAP (test code = 2-16 2392372595) BUN (test code = 3 mg/dL 7-23 L 6434403063) GLUCOSE (test code = 102 mg/dL 70-110 6882028298) CREATININE (test code = 0.41 mg/dL 0.50-1.04 L 3264756264) TOTAL BILI (test code = 0.8 mg/dL 0.1-1.5 8330465165) CALCIUM (test code = 8.7 mg/dL 8.6-10.6 0710140864) T PROTEIN (test code = 7.2 g/dL 6.3-8.2 9781676321) ALBUMIN (test code = 4.4 g/dL 3.5-5.0 4296642885) ALK PHOS (test code = 133 U/L 34-122 H 0677363125) ALTv (test code = 26 U/L 5-35 1742-6) AST(SGOT) (test code = 26 U/L 13-40 9079550835) eGFR (test code = mL/min/1.73m2 3473590773) SCOTT (test code = SCOTT) Association of [...] tests). Lab Interpretation Abnormal (test code = 29573-9) [facility] [id number] 18:44:46 Test Item Value Reference Range Interpretation Comments APTT Patient (test See_Comment [Automat ed code = 3173-2) message] The system which generated this result transmitted reference range : 23 - 38 Seconds . The reference range was not used to interpr et this result as normal/abnormal . SCOTT (test code = SCOTT) The [facility] patient population mean normal value for aPTT is 30 seconds. Lab Interpretation Normal (test code = 47616-7) [facility] [id number] 18:42:45 Test Item Value Reference Range Interpretation Comments PROTIME PATIENT (test See_Comment [Auto mated message] code = 5964-2) The system [employer] generated this result transmitted ref erence range: 12.0 - 1 4.7 Seconds. The re ference range was not u sed to interpret this result as normal/abnor mal. INR (test code = 6301-6) Nor mal INR <1.1; Warfarin Therap eutic range 2.0 to 3. 0 or 2.5 to 3.5, dep ending upon the indica tions. Lab Interpretation (test Normal code = 62990-6) [facility] [id number] 14:07:55 Test Item Value Reference Range Interpretation Comments Materials Received (test x5sygYZkQDUxrMNkCsDq code = 9973) PDWtWNZjn7jsYAPflGOj ZzEwMzNcZnRuYmpcdWMx PLEjMyQti3hti897eTCk i9hbAHJgFsT6nMPmUILh gKSxN692PVGzHPpjn3cx o2KnIVHtcMVpa4I0POON wrirdAs5yZqsS05nx8D2 VgcrV8blIXYoIZBpU6Wm ZB8cUJPtRzk0MKL4ZKZ6 NCPrSBYjW7UeGX4cFTEa aWIsYOq3e9ghsSqmJHOu UWG6q2bsRUwbodPoKI6r sn1mmWo1u9ianhFhLDFh XNMxgSXGYLZkS8WohUhm Zg6plIu8mRrkDddeBPN5 Klq5TD0ywx05apa1hHgg MKJaxuarJqS9YEycVUQm dczrRFh1JPioFVAaeVvt MFxtYXJncjcyMFxtYXJn mPX2MSXqcUIpV3HtBJLs YLksERWxizm7BrTcIf4n kONneIzcIIntr1sxt9qu sYYxOsg7YKYiPkLhMffa TRhkn9Qwh7qnIRIrmo1i EVY1sOIyvQxxe0I0yFWq VAPdvKYsdtXpFTTpnk11 rHUtfAJwcIQicq8rhsRp zRKctTBtYKH1hTOfvkXu TPZaqAIkHYNpQG6ptQUm SITvwV7qooynJLEiVtQu tdlaGXKyqKtqerXyCu0q lLrmIFH2ILbgU4kopE4v YcR3IQbrG2okvD8fQFd4 JFtahDC5SZEvzU1wWG4d kbbuy2yyFtEzZP8lkllg d8qeSjHwCT8zptg9r7lg POE5CXyrNWZcEaL4wgT8 NDBcaGVhZGVyeTcyMFxm c825JMT6XnEjBWWbx6Gz L7NlvIqwL96mxRukU73a EVEjnJdyeX3xpChquP4g UqFoYnEuUOd0rv79QHo1 qzcfiSctILf4mpEnLESi HSD3FBYrrFBnSDJtH9y4 neFaADCyUGP6DBPrwJJf ZENbQ3r8uxRlKWT1ZTl2 cnBhZGRmdDNcdHJwYWRk YjBcdHJwYWRkZmIzXHRy bBOdwHEpnIIkcS6qzPkw FZTaxUZmrM2uQRP9YZXj cmgzMjBcdHJoZHJcbHRy gn91EECogxWowFFwrQgm iCJtXRP3PBHbXVKzEOWu DMM3LTZiBtKmffMuJJtf bGJyZHJiXGJyZHJzXGJy DBK4DQDgSeWgnkAoZUhn bGJyZHJsXGJyZHJzXGJy UXM6LMQaFoGnpmLtXLhc bGJyZHJyXGJyZHJzXGJy KID7QRTsJaSbrsNoDNku bHBhZHQxMFxjbHBhZGZ0 J4bsoHSiHPVvPSkqeLTf CLWlD8qciMSaKZtrBGIy cGFkZmwzXGNscGFkYjBc C2svBJOxVrJpT7XibNs8 MDAwXGNsdmVydGFsdFxj hQHnSGW9FSKoHWKgPGUc WNG5ONEjWtUfgeJmBKuq bGJyZHJiXGJyZHJzXGJy MIL3BTMaThWugxZrVWob bGJyZHJsXGJyZHJzXGJy GIB1OASqCsSiyiEoNQpe bGJyZHJyXGJyZHJzXGJy TRM0NIGlEiHkydQaQIst bHBhZHQxMFxjbHBhZGZ0 L0zidTErUNYoTYryoTZm AENuQ9ngdGCwYFphFKRz cGFkZmwzXGNscGFkYjBc Y4vtAGVoYrTpX2LrpXf7 NjAwXGNsdmVydGFsdFxj eMUvDAK6TFZdMBEeBCAm VOA3QMHnSpIjfdNwZVkl bGJyZHJiXGJyZHJzXGJy FKF3HZUfKiVyeaZxROzr bGJyZHJsXGJyZHJzXGJy XFZ7LZKwDvKrcqJvCMdq bGJyZHJyXGJyZHJzXGJy FJW6ITFoGpUrliNrBSog bHBhZHQxMFxjbHBhZGZ0 D7ezbFNbRMUuQDyhjMWz QFOpE5epcKMsDVtiFFLn cGFkZmwzXGNscGFkYjBc N6kwXWFnLxZuL6GjyRy1 RsDtRSVwmvOceV46Upmu f2IrZODgPBA3YLckYYwk bFxwbGFpblxmMVxmczIw IDhycdayICAsQTnsR6iv ObXmPUIwhTcqMRclw6Mu XGYxXGNmMlxmczIwXGIg TKMbOWBngS9kOwjpJ1Sq tP7gICjvIndtO5upTUNb k5BjmX2dXChguNDccwss MVxmczIwXGxhbmcxMDMz AGgtP2hgNzFbSVXxhRsp GIcak6WdWESqSXZnEsam scAzKEs2ynZsDLNmcRfh mLBsJGnhkmVzbGnnn4Hn suUkkKqsVUBnLEh8tlWu ucrahQw2zNKozZqiJEYx iMjkoJ2lIpJcWbGoUOnk bGFpblxmMVxmczIwXGxh dhloOKKfQQbiO7ajYiAh ZTEzcQoySZlzh9TnQAHr MIVdDhdtvkYuDHSiO26r bGVjdGVkXHBsYWluXGYx XGZzMjBcbGFuZzEwMzNc aGljaFxmMVxkYmNoXGYx KWoyW2kzKvVxL9KsPFJv IiBemDPtZ5gnT9TfiTee YXJkXGludGJsXHNzcGFy BHS5rTCjgtMraZQzlSKg MIUoOOsxCON6aXMdtnec yWPaoxdeXJmajtD8IUJq YWluXGYxXGZzMjBcbGFu ZzEwMzNcaGljaFxmMVxk ZiHtEWFrRWddA2cdHeZi E1AsHGQzKvVcQpYEWMLd aXZlZFxwbGFpblxmMVxm czIwXGxhbmcxMDMzXGhp D8rmJoEfHULaiRybTXba r0JqBAVtCLJqImvqizNs YCi7ocEwXFMssPxfqY15 Ccnwno66MTElv9wtGFTv C2YigHYmXRLjrHHvBKzr MDhcdHJwYWRkZmwzXHRy cGFkZHIxMDhcdHJwYWRk ZnIzXHRycGFkZHQwXHRy iXHmOJC8R3x5djShWFQw LMa4hzEgIYIpCbWuvDUn PBW3VUv1CpguqxK3gAKq K8p9JdhopcRpYZosmEXd yu58QOYijjWwaHCupJfv iRKnQRP3NIVmRUAeYEFd TTX1XUOlUfKrcqNyTIsf bGJyZHJiXGJyZHJzXGJy SPQ8WMJwWfArlrTdDIdi bGJyZHJsXGJyZHJzXGJy JLS8XCJrOvTzgfXhOLsc bGJyZHJyXGJyZHJzXGJy PHB7KTOxFlJagxMoAGlh bHBhZHQxMFxjbHBhZGZ0 P3nweGSuCEKxQRwczUGx FCXfP5amsHTrNMneYCVx cGFkZmwzXGNscGFkYjBc H8vyLYUvRpVuR9PmkVu0 MDAwXGNsdmVydGFsdFxj eHQzBQQ7HJHwAYUfUUBo QAS9RSEvZhHdhvCxJBhk bGJyZHJiXGJyZHJzXGJy FVQ1MPWxUaNhfdReOYsd bGJyZHJsXGJyZHJzXGJy QBW5DUQoEyAaopOvLQkd bGJyZHJyXGJyZHJzXGJy MOT6RSZfXgXkyqQcBHws bHBhZHQxMFxjbHBhZGZ0 U8vzeEFfTRVcTXzzoKMj JABfD0ismWWzHRdkMXLf cGFkZmwzXGNscGFkYjBc U7svTIYsMuSzW0ScqVw8 NjAwXGNsdmVydGFsdFxj kDVrYEP9JXPrOKLlJLZm TEK7ARRoRpJmsoZjDJxr bGJyZHJiXGJyZHJzXGJy TIA9ZNBwRgOuyqVoDEcy bGJyZHJsXGJyZHJzXGJy TAZ3ZCPwGlGtnjGdGNcx bGJyZHJyXGJyZHJzXGJy MLZ4HOScZjCkybUuSRqo bHBhZHQxMFxjbHBhZGZ0 R7nbjLXbYAQgYGnynRLu JIIaD3hcrELiDOyuQZTh cGFkZmwzXGNscGFkYjBc T6ebBFHvWbQrK8KgfVk7 PhZeKSCddsZlzD72Ihcb q9YgORKcRZP4TZqgOWii bFxwbGFpblxmMFxmczI0 XHBsYWluXGYxXGZzMjBc bGFuZzEwMzNcaGljaFxm VCfxAlOuHNWfIHxfJ7sd CpVmL4JvKPSuHdMiGV0u IjC9WIExNZVwUFEcWLPF QjdsKGFDOE0IF5IcTFGc VVNTXHBsYWluXGYxXGZz MjBcbGFuZzEwMzNcaGlj aFxmMVxkYmNoXGYxXGxv N6ozElHrF5NqKPDuAuZp qETtF6qvQ5TauKilACZw XGludGJsXHNzcGFyYWF1 yXWzgyNbuCgfvRcjrB2x ZjBcZnMyNFxwbGFpblxm MVxmczIwXGxhbmcxMDMz BKsmP9qeQfEqRMNhfGle XGgkp3HiBRCnKSClZooj czIwIDEyLzEzLzIwMjFc tKpzxP7dZdBvMyOzYQhi EZ0sHZVlW1pgsSUmMAOh ARKyO0gbBjVjgB5pfChw MVxjZjJcZnMyMFxsdHJj pZsxBCuoGNOwltTtuA20 Rnisj8VbYFMhNWH9MTak MFxxbFxwbGFpblxmMFxm nxI0YOUrRRcmHIKoTDQf MjBcbGFuZzEwMzNcaGlj aFxmMVxkYmNoXGYxXGxv X3ltFnJgA6WcAZPmDkJe XB3qUL3oSGMvIXBsHAew XGYxXGZzMjBcbGFuZzEw MzNcaGljaFxmMVxkYmNo QKKvVGcwF5zbBwEwE9Dn YFSdEqLxdOGxJ0dgE2Mb aBvztkBhvEovl1qzoMKo GOmyx9NxlpAumUacBNQg XHFsXHBsYWluXGYwXGZz GwBceCdhaM4sDkNpZbPg YAhoAA0hQOMzE7frlKBk JAFwCEEuH7qlBqBepO5c aFxmMVxmczIwXHBhcn0= Diagnosis (test code = i9oocLVuSGSqlHD6QmGh 34) VWCwh5ujn3EleKSfkRPu JEwxqDSovlUabx62aZX8 pY62OB9gYADnXgU5UKCq azF9Kpj9XKDfWKHoaZUx E703u2kel4ijzjEbzAQ5 ZKJkJZCcM4OdHS2eECFm zYTcS43zkNZkMLV1BPHa DJUtjSGzSNJsHWU0KZWw cTOtK7ovOERvIF3oxjib GXdzVWbtVEXgrIA3AOLg dWSwP0FbFUMdODqcIZQf qdm7WhKtOs3vaZYprFaa MFxwYXJkXHBsYWluXGZz RcZvV4NzMEe5pYVcNL1a ZGUgKGxlZnQgdXBwZXIg duKmqmcbYBA1O4xzzF6d ADuuUlssyAP0NlrqWLLi O6TmAOTczrgmjPxsDXoi yH47FvGqURhADnAHJHGS QVJHRSBCLUNFTEwgTFlN UEhPTUEgKDcwLTgwJSkg QQ9OIGFMLOmNC0MHSANh TFlNUEhPTUEsIEdSQURF JWYCFAccTA9cPATaOTZi ozzwAVZjLTjsKZ2yr0Nc MVQiUFbegtFjHDgqyp9l bmFsIGNlbnRlciBCLWNl eEtgbA8rwM8fbEnihy63 yQHbSQXbEKVBvR88GaJx cyB+OTAtOTUlIFxwYXJc cGFyZFxwYXJ9 Comment (test code = t6yfoBZkCOPkuLX1GkXa 9891) WFIgh1apy8OxlWWgvDZf YNdrtPKxesIvei51pIK6 pO46ZF7uVWXxTcM0ZYCf eeD4Qqd7XRTgLGRdaVFx J017l2jyj1zlqsTseSV3 yTkaDPEjcypxBxE7WHvl AEDoqlduONa3WLqxGUYd tGO8TATyuHSpQ8IlWWZr CT8hyob3ZYQ3EBxeVVZr HsD8CEKreOQkAJVdpCrq ENewy047GYC7GjNsYJSf hjPhpWqbhB6zPjLjWFHK bBH1f4keB4izKOItG0Mb i71oVDYhi0hkeZamlEek kt0eMPVqulB9rYznzCH5 iBXfETTvrPf3RUD5gNEz QGfvDRNfqJ5zmHMfw79x pQM3ASs3ALAriPsuI2Vb GBC6PFk7bHXpp64cYeDf CM1pvYVkFtZbHYFzDFAj FnZ4qMJrosIkvKyqr87l aGFzIGEgZGlmZnVzZSBw LVW2UCDvKQEmqZEuoWrj qwVdIJLoYNOef84fOc1i bGljdWxhciBhcmVhcyAo ThDnSqTqRN8oCg26cJE8 aGUgZGlmZnVzZSBhbmQg Gw2etGwuxKgipzLgvnBt gvGmkaNpG32yoE4nTJIm q8LanSMbF3YlgyYrnQgj e1QaYvOyFMonfqO6mCDm BEQwLKX2tmSfVDIhzfAc s3ArPDU2yi0sLZFjlROs gY2vnN92wKOeD1HnjVIj MAAcTEOcSDOsbzEdHF6h TF6isW05sKTyUsennXIy ajZwjvBxPFOxhWx0ENfm TQ47nIJrWWQeTPFxJVRi aWZmdXNlIGFyZWFzIHNo h9ftCYZdcTNlndbxr9s6 LJDatEQkoe1qQHjigyKc bGluZSBXZSBoYXZlIHJl iozvn9FsPYamaCZwp3be j7OeN6dqaUbsCPmei1R0 DYgocoRqNLCtr5QjMURz YOnbZDszZJEwXV1vSNCp hHRct1XxM1fdFQ2pJOAa OPFtCG4atPVlhRulJTMu rPryTRYaDXEcg9IclOs2 GCNpt3HjP0ObVManJ6Sm YCmfE2P2EjZcr3Eouwqn AUIDJIfiogFon2thBAoi QkNMXGVuZGFzaCAyIChz yJEydipoVONXV0wlSC2l XHPiCDHzGU6nZO6ZYMGf BFHZZBorVY0tNZHiCLRr DRdclXq0EPSaa6JnJ9Ug LCBDRDUsIENEMjEsIENE DuCaGNGmJEAxmFFypS1l YGAvFDRfGNVrpwSoMl7b zCTqgXWuvQFjJcFmy3Ta W6QyUVNrqI85xoZnn98f NCStcNgnC8SeHUThHDSv ZHJpdGljIGNlbGwgbmV0 i93lq3Xhy1v1rZzvDYEz GSZkq2txzBY1jWJlHPZj kIVwtzVvdDXzCyR3yJUc bpPnyUjyu11vQMLnWZYn xzHtHh1lfXXjeAJghOFx OnVba4PrZ3oaXkvqd5zy f2RvOFAdzf8vsFVubnV5 mW2wAOKlvEOkn7ExRRGk OTUlIGluIHRoZSBkaWZm dXNlIGFyZWFzIGFuZCBp bhPhd69fZV0nHPAmKENm i4mvgOS2uROxHWCjUTBu LiAgXHBhclxwYXIgQWNj o6YazM4yABSfWYWtCJFj rIQueVB4RZWpqvOhj7U2 PXQkpbWgwOT8MJx0UeNo DNf9YCTpy60bSO4dhWcc fWYkw8gap7AeNUFaUDMr wVdsAW5lm6DfIIUqSLfc TW0sY4V7kOGvIXMqsbHS aAM5QWwfSENmFSJcpNAZ PIQgYVAoszVaBXZhR88z IHMyIr9DXYzNIqVVMZ6v VGhpcyBzbGlkZSBoYXMg wa44KIEaDS7zj6QrlVD6 fdA8lrHup5BzoeR5pMK0 UpzlkA9rHQbiinPwTWKd k0HwtL1lSWRzHAJvCQRy aVDncKG7GDSfsvZqk6K5 XNKmgI96OCW0pC1lMZNa fPErgY29ju9vzDQvf2P4 hRbuROW4kTHhAJKzx6By VTYlYGHtw8IzJBHbc36n ASEgLPrwKQA4p8TrsgGr u80mw9ElqUxvwwMzeRDc pL1sfa4pVOwoSIKjj0If fHSbb2ozn2DxMFIcOUMa iyZwayHvWt2jQTssPUXm wMHiHMEil99voN7vqQLw udTsPj7dWS2nuz52eTMb JrFmRG0uXACbZC2lSEPH AITfLK2eIWPiaIGlk5At yDqhJlUaYzUhq0LglRgs OAJ2QQ64ttTafaHyeBta KU8kENpoJQtlfvGpvd69 MRHsHJ4ka8KfkACkRWCb iQFvJLIuAVXli7toH8b0 m68muUT9MRWudU9naXWi b9MyorU2dGY7FvqksZ9v VOvflvHaQPAtr0EatJ2z IHRvIHRoZSBzdWJtaXR0 MILcnwDzo3U4TNOpxMLw lrKpA8GaH2PgaO4lm0j7 pVXoiQGjzMVubfZ8tD6j IChGSVNIKSBzdHVkaWVz GUchnrJse4YyBCFyITW6 iwOuj9Kiv0DxTl4cOAyz RO0HG5duNJMnIIptPQEQ TDJcaTAgIGFuZCBcaSBC M7j2XZwaAXVpBCMdobHj G3ExPL81oz7vW3Gim5ce eVIgYXZ9FXS2IWIqA35r kPXbChX1pDF6YTQzjL7f pJ7cCLNfgccrNHAguFYq RRSiC0wynLMdsVEGcVKz R7HkNa57LJkhQIVHGDSw clxwYXJ9 Disclaimer (test code = c7mexRWsNYLfyDOfNeIj 9844) QRRmBJQgq5zuNCEwxBGs ZzEwMzNcZnRuYmpcdWMx FPZtPhIkl3awl244aEWo n5xyWGZoIqF6wIEePLIc xZOfL545NKMtWHjuy4ai f0YjVSUoyDCsk0B6QJTU qviddNe4qFbvW91sa7F2 LifzX9jjRAPoSPMeM8Lw LQ1eFXPuWcr6XRN4OXE7 UGApRGNvF6EoPR4dNMUp zJZkPTh0j3rbmWzqTPOx SYX3i4teLNmuzaChCG1n rb6akUf4r6esncBxFOJb LSJyaPOGZKCyF4BftKfd Qk0idMw0aIriBraeIXO4 Hpw0CT7jna87smc6jVlt TXFffnyfTrA8RTglOTAy mvczFQq2XAlhLJBylSH7 ELRxlRWrV1SvPWTaOS6q xyb0DOG2LFqyLPQsJtS1 NDBcaGVhZGVyeTcyMFxm q521VSX8LjNmLM0vS0Bf m7A9yT5rzEQfWIDmpZEv TeGrDBYpmz7dlAAyTEbl e3YkIPQ8tkL0iAZiaKEd YRUfRB14Kqils5DnInle FUE0IGGrcdGby7Gfw2qd KqFgozAlP8neU1UnIUAy CUAwRAFaRiDwclOme7Uh x4VvnIZvmKm5g9fjPSCt OOHtbTych7rgNEI5VQGf N3H1sJUxe4ziBGokJNMc jST5ssH9STZhqZDdC8Wg jY7dJUZdQK0oytl0v8hd SFK9FFncFMBeXjW9ocC7 NDBcaGVhZGVyeTcyMFxm b551VFR5YzRtOSBwp6Uz I5SpcWvyL08dwZscJ91t ZPHuaYvetD0yeRopvY9p ZjBcZnMyNFxxbFxwbGFp iytzTTfixnX5AHrzpnxt BVJsOVfvY9goKjCcTIRd pGdgMWqno9HaZBUgIJWs WqqccfP8CMOMe18iEJEy x3TrQTBluJ0gnWRhGWui adVlsDT8LMqkaxGwOlMq ugClFLGhyM3zRFUsIN5a TTWwcfFtqb3znaQwLYSd BGDhM4XadbupjMlaotIl BOBsxt0cgvYtUHA4DJSO LC0QOCUrDTHwz98vSJBk bJambM5gjQAuvuHuKYFj x2BxkQ3bsWDTPTMmC5vo IH7eYBcko7XxwLVywCQx aQJ2QQVcx1GyEuKoitBd pGVbdRCtA8PgkHvdB1jy OKXyIGDcupXumGKbc6Qr JBYwnCO6aCVqKD1MGoBP p16iIUNgUPTUrpIzFHJu uZtfsSP2xoF3wS6eAnFG ZiBhcHBsaWNhYmxlLCBj z162zo8xauF8WRSbHBDx jmgos3HbCUWtWKYxkA92 ONIaNKBhii2ahbtixVYw zwBfP0Zdxfa0vL6wFWNc YWluXGYxXGZzMjJcbGFu ZzEwMzNcaGljaFxmMVxk GqPlDRCiEIyyJ0rzKaJp ZnMyMlxwYXJ9 MD Gallagher. METABOLIC PANEL (00351)2020-10-02 04:58:30 Test Item Value Reference Range Interpretation Comments NA (test code = 138 mmol/L 135-145 7942552571) K (test code = 3.9 mmol/L 3.5-5.0 1210792705) CL (test code = 102 mmol/L 98-108 6287684550) CO2 TOTAL (test code = 25 mmol/L 23-31 9414205966) AGAP (test code = 2-16 5402225314) BUN (test code = 20 mg/dL 7-23 7584651842) GLUCOSE (test code = 96 mg/dL 70-110 6498929276) CREATININE (test code = 0.56 mg/dL 0.50-1.04 7729613505) TOTAL BILI (test code = 0.8 mg/dL 0.1-1.7 2401792145) CALCIUM (test code = 10.2 mg/dL 8.6-10.6 9118875534) T PROTEIN (test code = 8.8 g/dL 6.3-8.2 H 1043011298) ALBUMIN (test code = 4.7 g/dL 3.5-5.0 4138145191) ALK PHOS (test code = 99 U/L 34-122 8953947153) ALTv (test code = 38 U/L 5-35 H 1742-6) AST(SGOT) (test code = 31 U/L 13-40 4965573432) eGFR (test code = mL/min/1.73m2 1595313064) SCOTT (test code = SCOTT) Association of [...] tests). Lab Interpretation Abnormal (test code = 56372-6) [facility] Test Item Value Reference Range Interpretation Comments LIPASE (test code = 0370626632) 243 U/L 0-220 H Lab Interpretation (test code = Abnormal 09125-9) [facility] 04:51:44 Test Item Value Reference Range Interpretation Comments APPEARANCE (test code = Clear Clear 6147541161) COLOR (test code = Yellow Yellow 7280959597) PH (test code = 4.8-8.0 3704123510) SP GRAVITY (test code = 1.003-1.030 2638096357) GLU U QUAL (test code = Normal Normal 1294930557) BLOOD (test code = Negative Negative 3481016061) KETONES (test code = Negative Negative 2587851316) PROTEIN (test code = Negative Negative 2887-8) UROBILIN (test code = Normal Normal 0379499342) BILIRUBIN (test code = Negative Negative 1887186901) NITRITE (test code = Negative Negative 1574576259) LEUK BAILEY (test code = Negative Negative 6826730906) RBC/HPF (test code = See_Comment [Autom ated message] 7098897140) The system [employer] generated this result transmitted ref erence range: 0 - 3 HP F. The reference range was not used to int erpret this result as normal/abnormal . WBC/HPF (test code = See_Comment [Autom ated message] 0451417135) The system [employer] generated this result transmitted ref erence range: 0 - 5 HP F. The reference range was not used to int erpret this result as normal/abnormal . BACTERIA (test code = Negative Negative 9672125381) MUCOUS (test code = Slight Negative LPF A 3509251567) SQ EPITH (test code = HPF 4737042927) Lab Interpretation (test Abnormal code = 43988-1) [facility] [id number] 04:45:31 Test Item Value Reference Range Interpretation Comments WBC (test code = See_Comment [Automated 4490-2) message] The sy stem which generated this result transmitted reference range : 4.30 - 11.10 10*3/?L. The reference range was not used to interpret this result as normal/abnormal . RBC (test code = See_Comment [Automated 199-8) message] The sy stem which generated this [...] (test code = 38.7 fL 39.0-49.9 L 46843-2) RDW-CV (test code = 12.9 % 12.0-15.5 788-0) PLT (test code = See_Comment [Automated 777-3) message] The sy stem which generated this result transmitted reference range : 166 - 358 10*3/ ?L. The reference r lenard was not used to interpret this result as normal/abnormal . MPV (test code = 9.4 fL 9.5-12.9 L 98202-4) NRBC/100 WBC (test See_Comment [Automat ed code = 1557346209) message] The system which generated this result transmitted reference range : 0.0 - 10.0 /100 WBCs. The refer ence range was not u sed to interpret th is result as normal/abnormal . NRBC x10^3 (test code <0.01 See_Comment [Auto mated = 9175102570) message] The s ystem which generated this result transmitted reference range : 10*3/?L. The reference range was not used to interpret this result as normal/abnormal . GRAN MAT (NEUT) % 52.7 % (test code = 770-8) IMM GRAN % (test code 0.20 % = 0690892828) LYMPH % (test code = 38.2 % 736-9) MONO % (test code = 7.6 % 5905-5) EOS % (test code = 1.0 % 713-8) BASO % (test code = 0.3 % 706-2) GRAN MAT x10^3(ANC) 3.33 10*3/uL 1.88-7.09 (test code = 5503278035) IMM GRAN x10^3 (test <0.03 0.00-0.06 code = 5993259646) LYMPH x10^3 (test code 2.41 10*3/uL 1.32-3.29 = 731-0) MONO x10^3 (test code 0.48 10*3/uL 0.33-0.92 = 742-7) EOS x10^3 (test code = 0.06 10*3/uL 0.03-0.39 711-2) BASO x10^3 (test code <0.03 0.01-0.07 = 704-7) Lab Interpretation Abnormal (test code = 22279-5) [facility] RAPID TESTING)2020-07-20 00:25:44 Test Item Value Reference Range Interpretation Comments SARS-CoV-2 Rapid ID NOW Not Detected Not Detected (test code = 70578-7) SCOTT (test code = SCOTT) ID NOW COVID-19 Assay is an isothermal nucleic acid amplification test intended for the qualitative detection of nucleic acid from SARS-CoV-2 viral RNA in nasopharyngeal ([employer]) specimens. It is used under Emergency Use [...] indicated. Lab Interpretation Normal (test code = 28721-8) [facility]OLIC PANEL (16602)2020-07-19 22:47:37 Test Item Value Reference Range Interpretation Comments NA (test code = 139 mmol/L 135-145 1774169387) K (test code = 3.6 mmol/L 3.5-5.0 9858723729) CL (test code = 103 mmol/L 98-108 4327811900) CO2 TOTAL (test code = 27 mmol/L 23-31 4815269632) AGAP (test code = 2-16 7938584315) BUN (test code = 18 mg/dL 7-23 3412857675) GLUCOSE (test code = 98 mg/dL 70-110 5237458408) CREATININE (test code = 0.78 mg/dL 0.50-1.04 9859904661) TOTAL BILI (test code = 0.7 mg/dL 0.1-1.4 5458014028) CALCIUM (test code = 9.9 mg/dL 8.6-10.6 3760800919) T PROTEIN (test code = 7.4 g/dL 6.3-8.2 9477975590) ALBUMIN (test code = 4.3 g/dL 3.5-5.0 5163660055) ALK PHOS (test code = 97 U/L 34-122 9904744033) ALTv (test code = 39 U/L 5-35 H 1741-6) AST(SGOT) (test code = 32 U/L 13-40 7114162787) eGFR (test code = mL/min/1.73m2 2955602775) SCOTT (test code = SCOTT) Association of [...] tests). Lab Interpretation Abnormal (test code = 59624-1) [facility] 22:47:02 Test Item Value Reference Range Interpretation Comments APPEARANCE (test code = Clear Clear 8791454773) COLOR (test code = Yellow Yellow 2406339045) PH (test code = 4.8-8.0 4777955880) SP GRAVITY (test code = 1.003-1.030 3742975997) GLU U QUAL (test code = Normal Normal 5172675402) BLOOD (test code = Negative Negative 6794857259) KETONES (test code = Negative Negative 0508710444) PROTEIN (test code = Negative Negative 2887-8) UROBILIN (test code = Normal Normal 9907072981) BILIRUBIN (test code = Negative Negative 8580092170) NITRITE (test code = Negative Negative 5694924361) LEUK BAILEY (test code = Negative Negative 9263484487) RBC/HPF (test code = See_Comment [Autom ated message] 1405202616) The system [employer] generated this result transmitted ref erence range: 0 - 3 HP F. The reference range was not used to int erpret this result as normal/abnormal . WBC/HPF (test code = See_Comment [Autom ated message] 1547985444) The system [employer] generated this result transmitted ref erence range: 0 - 5 HP F. The reference range was not used to int erpret this result as normal/abnormal . BACTERIA (test code = Negative Negative 4698366039) MUCOUS (test code = Slight Negative LPF A 9236764448) SQ EPITH (test code = HPF 2367455914) Lab Interpretation (test Abnormal code = 13784-9) [facility] 22:46:57 Test Item Value Reference Range Interpretation Comments LIPASE (test code = 0950176902) 277 U/L 0-220 H Lab Interpretation (test code = Abnormal 75174-6) [facility] WITH [id number] 22:37:16 Test Item Value Reference Range Interpretation [...] (test code = 34.9 fL 39.0-49.9 L 75929-4) RDW-CV (test code = 12.0 % 12.0-15.5 788-0) PLT (test code = See_Comment [Automated 777-3) message] The sy stem which generated this result transmitted reference range : 166 - 358 10*3/ ?L. The reference r lenard was not used to interpret this result as normal/abnormal . MPV (test code = 9.7 fL 9.5-12.9 18435-3) NRBC/100 WBC (test See_Comment [Automat ed code = 1827240119) message] The system which generated this result transmitted reference range : 0.0 - 10.0 /100 WBCs. The refer ence range was not u sed to interpret th is result as normal/abnormal . NRBC x10^3 (test code <0.01 See_Comment [Auto mated = 9293475758) message] The s ystem which generated this result transmitted reference range : 10*3/?L. The reference range was not used to interpret this result as normal/abnormal . GRAN MAT (NEUT) % 47.2 % (test code = 770-8) IMM GRAN % (test code 0.40 % = 8887539708) LYMPH % (test code = 43.2 % 736-9) MONO % (test code = 7.5 % 5905-5) EOS % (test code = 1.2 % 713-8) BASO % (test code = 0.5 % 706-2) GRAN MAT x10^3(ANC) 2.69 10*3/uL 1.88-7.09 (test code = 3038543766) IMM GRAN x10^3 (test <0.03 0.00-0.06 code = 6369085999) LYMPH x10^3 (test code 2.46 10*3/uL 1.32-3.29 = 731-0) MONO x10^3 (test code 0.43 10*3/uL 0.33-0.92 = 742-7) EOS x10^3 (test code = 0.07 10*3/uL 0.03-0.39 711-2) BASO x10^3 (test code 0.03 10*3/uL 0.01-0.07 = 704-7) Lab Interpretation Abnormal (test code = 54771-8) [facility] [id number] 02:46:10Postsurgical changes with anastomoses sutures in the rightcolon.2. Fluid-filled loops of normal caliber mid and distal small bowel may be anonspecific enteritis.3. Previous hernia repair. No recurrent hernia.4. No hydronephrosis.5. No free fluid. RL: 4400AFC: 47267 END OF REPORT Ordering Physician: JOSE RODRIGUEZ [...] recurrent hernia.4. No hydronephrosis.5. No free fluid.RL: 4400AFC: 51514TVN OF REPORT [facility] [id number] 01:12:00 Test Item Value Reference Range Interpretation Comments NA (test code = 140 mmol/L 135-145 4879890735) K (test code = 3.7 mmol/L 3.5-5 7207555983) CL (test code = 104 mmol/L 98-108 3000943147) CO2 TOTAL (test code = 26 mmol/L 23-31 3468589343) AGAP (test code = 2-16 2702412208) BUN (test code = 10 mg/dL 7-23 3494274194) GLUCOSE (test code = 99 mg/dL 70-110 1157231376) CREATININE (test code = 0.53 mg/dL 0.5-1.04 4648887425) TOTAL BILI (test code = 0.5 mg/dL 0.1-1.9 7862957206) CALCIUM (test code = 9.7 mg/dL 8.6-10.6 6292730938) T PROTEIN (test code = 8.8 g/dL 6.3-8.2 H 7065026694) ALBUMIN (test code = 4.6 g/dL 3.5-5 4280079708) ALK PHOS (test code = 126 U/L 34-122 H 9010437870) ALTv (test code = 63 U/L 5-35 H 1742-6) AST(SGOT) (test code = 45 U/L 13-40 H 4342796907) eGFR Calculation mL/min/1.73m2 (Non-) (test code = 9750069053) eGFR Calculation mL/min/1.73m2 () (test code = 2858978275) SCOTT (test code = SCOTT) Association of [...] tests). Lab Interpretation Abnormal (test code = 04880-6) [facility], [id number] 01:12:00 Test Item Value Reference Range Interpretation Comments LIPASE (test code = 7654041934) 166 U/L 0-220 Lab Interpretation (test code = Normal 22240-9) [facility] HospitalUrinalysis2020-01-26 01:09:00 Test Item Value Reference Range Interpretation Comments APPEARANCE (test code = Clear Clear 7513391894) COLOR (test code = Yellow Yellow 2205311223) PH (test code = 4.8-8.0 9523451091) SP GRAVITY (test code = 1.003-1.030 2557921508) GLU U QUAL (test code = Normal Normal 9209354277) BLOOD (test code = Negative Negative 4426920410) KETONES (test code = Negative Negative 0208023346) PROTEIN (test code = Negative Negative 2887-8) UROBILIN (test code = Normal Normal 4685426489) BILIRUBIN (test code = Negative Negative 3651864591) NITRITE (test code = Negative Negative 6969988017) LEUK BAILEY (test code = 25/uL Negative A 3385181257) RBC/HPF (test code = See_Comment [Autom ated message] 5471025102) The system [employer] generated this result transmitted ref erence range: 0 - 3 HP F. The reference range was not used to int erpret this result as normal/abnormal . WBC/HPF (test code = See_Comment [Autom ated message] 5432827130) The system [employer] generated this result transmitted ref erence range: 0 - 5 HP F. The reference range was not used to int erpret this result as normal/abnormal . BACTERIA (test code = Negative Negative 2540106503) MUCOUS (test code = Slight Negative LPF A 0997202404) SQ EPITH (test code = HPF 4257318389) Lab Interpretation (test Abnormal code = 18379-4) [facility] WITH [id number] 00:58:00 Test Item Value Reference Range Interpretation Comments WBC (test code = See_Comment [Automated 2490-2) message] The [employer] stem which generated this result transmitted reference [...] (test code = 35.2 fL 39-49.9 L 78072-6) RDW-CV (test code = 12.3 % 12-15.5 788-0) PLT (test code = See_Comment [Automated 777-3) message] The sy stem which generated this result transmitted reference range : 166 - 358 10*3/ ?L. The reference r lenard was not used to interpret this result as normal/abnormal . MPV (test code = 9.3 fL 9.5-12.9 L 64141-3) NRBC/100 WBC (test See_Comment [Automat ed code = 4449215202) message] The system which generated this result transmitted reference range : 0.0 - 10.0 /100 WBCs. The refer ence range was not u sed to interpret th is result as normal/abnormal . NRBC x10^3 (test code <0.01 See_Comment [Auto mated = 0279015721) message] The s ystem which generated this result transmitted reference range : 10*3/?L. The reference range was not used to interpret this result as normal/abnormal . GRAN MAT (NEUT) % 51.0 % (test code = 770-8) IMM GRAN % (test code 0.40 % = 7334876925) LYMPH % (test code = 38.3 % 736-9) MONO % (test code = 7.6 % 5905-5) EOS % (test code = 2.1 % 713-8) BASO % (test code = 0.6 % 706-2) GRAN MAT x10^3(ANC) 2.69 10*3/uL 1.88-7.09 (test code = 6283017461) IMM GRAN x10^3 (test <0.03 0-0.06 code = 0186051548) LYMPH x10^3 (test code 2.02 10*3/uL 1.32-3.29 = 731-0) MONO x10^3 (test code 0.40 10*3/uL 0.33-0.92 = 742-7) EOS x10^3 (test code = 0.11 10*3/uL 0.03-0.39 711-2) BASO x10^3 (test code 0.03 10*3/uL 0.01-0.07 = 704-7) Lab Interpretation Abnormal (test code = 16217-1) [facility] Fxex1813-97-95 00:48:00 Test Item Value Reference Range Interpretation Comments POCT PREG (test code = 1605) negative On board controls acceptable with present C Line (test code = 3574) POCT PREG LOT # (test code = 3575) [id number] POCT PREG TEST DATE (test 10/02/2019 code = 3576) Lab Interpretation (test code = Normal 21288-6) [facility] W/ [id number] 05:12:00 Test Item Value Reference Range Interpretation [...] code Urine, Clean Catch = 2795) SCREEN, [id number] 05:00:00 Test Item Value Reference Range Interpretation Comments TEST URINE (BEAKER) (test Negative code = 583) BASIC METABOLIC [id number] 03:20:00 Test Item Value Reference Range Interpretation [...] m DATA TO CALCULA TE ESTIMATED GFR. [id number] 03:08:00 Test Item Value Reference Range Interpretation Comments MAGNESIUM (BEAKER) 2.0 mg/dL 1.6-2.6 Specimen slightly (test code = 627) hemolyzed [id number] 03:08:00 Test Item Value Reference Range Interpretation Comments PHOSPHORUS (BEAKER) 2.6 mg/dL 2.3-4.7 Specimen slightly (test code = 604) hemolyzed HEPATIC FUNCTION [id number] 03:08:00 Test Item Value Reference Range Interpretation [...] 347) hemolyzed CBC W/PLT COUNT & AUTO [id number] 02:54:00 Test Item Value Reference Range Interpretation [...]
[2021-06-06] MEDS ORDERED: HYDROMORPHONE HCL 2 MG/ML inj ONE (07:23)
[2021-06-06] MEDS ORDERED: ONDANSETRON 4 MG/2 ML VIAL ONE ×2 (07:23→15:08)
[2021-06-06] MEDS ORDERED: NA CHLORIDE 0.9% 1,000 ML ONE ×2 (07:24→13:10)
[2021-06-06 07:50] LABS: Absolute Lymphocytes (CBC) 0.2 K/uL (0.7-4.9); Hematocrit 32.2 % (36.0-45.0); Lymphocytes % 3.8 % (15.3-44.8); MPV 7.6 fL (7.6-11.3)
[2021-06-06 08:06] LABS: ALT/SGPT 25 U/L (12-78); AST/SGOT 12 U/L (15-37); Albumin 3.4 g/dL (3.4-5.0); Alkaline Phosphatase 109 U/L (45-117); BUN Blood Urea Nitrogen 9 mg/dL (7-18); Bicarbonate 29 mmol/L (21-32); Bilirubin Total 0.5 mg/dL (0.2-1.0); Glucose Level 110 mg/dL (74-106); Lipase 76 U/L (73-393); Potassium 3.8 mmol/L (3.5-5.1); Protein, Total 7.2 g/dL (6.4-8.2); Sodium Level 137 mmol/L (136-145)
[2021-06-06] MEDS ORDERED: PROMETHAZINE INJ 25 MG/ML AMP ONE (08:18)
[2021-06-06 08:46] LABS: Blood Morphology Comment NOT SEEN (NOT SEEN); Dohle Bodies PRESENT; Platelet Estimate DECR
--- NOTE | 2021-06-06 09:23 | RAD REPORT ---
EXAM DESCRIPTION: CT - Abdomen Pelvis W Contrast - 06/06/2021 9:01 am CLINICAL HISTORY: Abdominal pain COMPARISON: April 2021 TECHNIQUE: Computed axial tomography of the abdomen pelvis was obtained. 100 cc Isovue-300 was admin istered intravenously. Oral contrast was not requested which limits evaluation of bowel. All CT scans are performed using dose optimization technique as appropriate and may include automated exposure control or mA/KV adjustment according to patient size. FINDINGS: Fatty liver. Cholecystectomy Spleen, pancreas, adrenal and kidneys appear unremarkable. Right colectomy. The wall of the rectum and left colon is mildly thickened. Ventral hernia repair Hysterectomy. Air within the vagina. IMPRESSION: Mild thickening of the wall of the rectum and left colon consistent with a mild colitis. Air within the vagina. This may be insignificant. Infection and fistula can also result in this appea sina
--- NOTE | 2021-06-06 09:59 | ER ---
Nurse's Notes [facility] Name: Maris Arias Age: 40 yrs Sex: Female : 1980 Arrival Date: 06/06/2021 Time: 06:21 Bed 27 Private MD: Diagnosis: Dehydration Presentation: 06/06 06:51 Chief complaint: Patient states: she has non-hodgkins lymphoma and had her 4th round of bb chemo and she has abdominal pain, nausea and vomiting since then. Coronavirus screen: At this time, the client does not indicate any symptoms associated with coronavirus-19. Ebola Screen: No symptoms or risks identified at this time. Initial Sepsis Screen: Does the patient meet any 2 criteria? No. Patient's initial sepsis screen is negative. Does the patient have a suspected source of infection? No. Patient's initial sepsis screen is negative. Risk Assessment: Do you want to hurt yourself or someone else? Patient reports no desire to harm self or others. Onset of symptoms was June 01, 2021. 06:51 Method Of Arrival: Ambulatory bb 06:51 Acuity: CELESTE 2 bb Triage Assessment: 06:53 General: Appears uncomfortable, ill, Behavior is cooperative, anxious. Pain: Complains bb of pain in abdomen. Neuro: Level of Consciousness is awake, alert, obeys commands, Oriented to person, place, time, situation. Cardiovascular: Capillary refill < 3 seconds Patient's skin is warm and dry. Respiratory: Respiratory effort is even, unlabored, Respiratory pattern is regular. GI: Abdomen is obese, Reports lower abdominal pain, upper abdominal pain, diarrhea, nausea, vomiting. Derm: Skin is pink, warm \T\ dry. Musculoskeletal: Circulation, motion, and sensation intact. 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 - Social history:: Smoking status: Patient denies any tobacco usage or history of. Screenin:15 Abuse screen: Denies threats or abuse. Nutritional screening: Has had N/V for 3 or more vg1 days. Fall Risk No fall in past 12 months (0 pts). No secondary diagnosis (0 pts). IV access (20 points). Ambulatory Aid- None/Bed Rest/Nurse Assist (0 pts). Gait- Normal/Bed Rest/Wheelchair (0 pts) Mental Status- Oriented to own ability (0 pts). Total Feng Fall Scale indicates No Risk (0-24 pts). 07:49 Tuberculosis screening: No symptoms or risk factors identified. vg1 Assessment: 07:15 General: Appears in no apparent distress. uncomfortable, Behavior is calm, cooperative. vg1 Pain: Complains of pain in abdomen Pain currently is 8 out of 10 on a pain scale. Pain began 06/02/21. Neuro: Level of Consciousness is awake, alert, obeys commands, Oriented to person, place, time, situation. Cardiovascular: Patient's skin is warm and dry. Respiratory: Airway is patent Respiratory effort is even, unlabored. GI: Abdomen is round non-distended, Bowel sounds present X 4 quads. Abd is soft X 4 quads Reports diarrhea, nausea, vomiting, since 06/02/21. : No signs and/or symptoms were reported regarding the genitourinary system. EENT: No signs and/or symptoms were reported regarding the EENT system. Derm: Skin is intact, is healthy with good turgor. Musculoskeletal: Circulation, motion, and sensation intact. 08:53 Reassessment: Patient appears in no apparent distress at this time. Patient and/or vg1 family updated on plan of care and expected duration. Pain level reassessed. Patient is alert, oriented x 3, equal unlabored respirations, skin warm/dry/pink. rated pain 4/10. 09:50 Reassessment: Patient appears in no apparent distress at this time. Patient and/or vg1 family updated on plan of care and expected duration. Pain level reassessed. Patient is alert, oriented x 3, equal unlabored respirations, skin warm/dry/pink. Rates ABD pain 7/10; provider notified. 10:55 Reassessment: Patient appears in no apparent distress at this time. Patient and/or vg1 family updated on plan of care and expected duration. Pain level reassessed. Patient is alert, oriented x 3, equal unlabored respirations, skin warm/dry/pink. Rates pain 3/10. 12:00 Reassessment: Patient appears in no apparent distress at this time. No changes from vg1 previously documented assessment. Patient and/or family updated on plan of care and expected duration. Pain level reassessed. Patient is alert, oriented x 3, equal unlabored respirations, skin warm/dry/pink. Vital Signs: 06:51 BP 113 / 80; Pulse 133; Resp 18 S; Temp 98.4(O); Pulse Ox 97% on R/A; Weight 90.72 kg bb (R); Height 5 ft. 2 in. (157.48 cm) (R); Pain 8/10; 07:15 BP 113 / 66; Pulse 110; Resp 16; Pulse Ox 97% on R/A; vg1 08:54 BP 105 / 61; Pulse 110; Resp 16; Pulse Ox 98% on R/A; vg1 10:27 BP 111 / 64; Pulse 94; Resp 16; Pulse Ox 96% on R/A; vg1 10:55 BP 102 / 62; Pulse 95; Resp 15; Pulse Ox 97% on R/A; vg1 12:00 BP 103 / 61; Pulse 95; Resp 15; Pulse Ox 96% on R/A; vg1 06:51 Body Mass Index 36.58 (90.72 kg, 157.48 cm) ED Course: 06:21 Patient arrived in ED. rg4 06:53 Triage completed. 06:53 Arm band placed on Patient placed in waiting room, Patient notified of wait time. Family accompanied patient. 07:03 Mary Ann Soto MD is Attending Physician. sp3 07:15 Shira Portillo, RN is Primary Nurse. vg1 07:15 Patient has correct armband on for positive identification. Bed in low position. Call vg1 light in reach. Side rails up X 1. Adult w/ patient. 07:35 Missed attempt(s): 22 gauge in right antecubital area. vg1 07:35 Initial lab(s) drawn, by me, sent to lab. vg1 07:50 Missed attempt(s): 22 gauge in right antecubital area. vg1 08:05 Inserted saline lock: 24 gauge in right upper arm, using aseptic technique. ,using vg1 aseptic technique. completed by Giuliana FELIX. 08:[address] via wheelchair. vg1 09:03 CT Abd/Pelvis - IV Contrast Only In Process Unspecified. EDMS 09:58 Robert Loco is Hospitalizing Provider. sp3 10:18 COVID swab sent to lab. vg1 12:20 Inserted saline lock: 22 gauge in left forearm, using aseptic technique. ,using aseptic vg1 technique. Completed by Denis FELIX. 13:45 No provider procedures requiring assistance completed. Patient admitted, IV remains in vg1 place. Administered Medications: 07:50 Drug: Zofran (Ondansetron) 4 mg Route: IVP; Site: right antecubital; vg1 08:53 Follow up: Response: No adverse reaction vg1 07:52 Drug: Dilaudid (HYDROmorphone) 1 mg Route: IVP; Site: right antecubital; vg1 08:53 Follow up: Response: No adverse reaction; Pain is decreased vg1 08:12 Drug: NS 0.9% 1000 ml Route: IV; Rate: 1 bolus; Site: right upper arm; iw 10:00 Follow up: IV Status: Completed infusion; IV Intake: 1000ml vg1 08:19 Drug: Phenergan (promethazine) 12.5 mg Route: IVP; Site: right upper arm; vg1 08:53 Follow up: Response: No adverse reaction; Marked relief of symptoms vg1 10:17 Drug: Dilaudid (HYDROmorphone) 1 mg Route: IVP; Site: right forearm; vg1 10:55 Follow up: Response: No adverse reaction; Pain is decreased vg1 Intake: 10:00 IV: 1000ml; Total: 1000ml. vg1 Outcome: 09:58 Decision to Hospitalize by Provider. sp3 13:45 Admitted to ER Hold. Please see [facility] for further documentation. vg1 13:45 Condition: good 13:45 Instructed on the need for admit. 17:00 Admitted to Tele accompanied by tech, room 225, with chart, Report called to ELVIRA Ovalles vg1 17:24 Patient left the ED. vg1 Signatures: [facility] ED[facility]ha Sinclair RN RN Giuliana Goddard RN RN iw Janessa Portillo 4 Shira Portillo RN RN vg1 Mary Ann Soto MD MD sp3 Corrections: (The following items were deleted from the chart) 08:22 08:22 Patient moved to [facility] vg1
--- NOTE | 2021-06-06 09:59 | EDPHYS ---
Physician Documentation [facility] Name: Maris Arias Age: 40 yrs Sex: Female : 1980 Arrival Date: 06/06/2021 Time: 06:21 Bed 27 Private MD: EFRA Physician Mary Ann Soto HPI: 06/06 07:39 This 40 yrs old Female presents to ER via Ambulatory with complaints of Abdominal Pain, sp3 Nausea/Vomiting. 07:39 40-year-old female with history of non-Hodgkin's lymphoma presents to the ER after her sp3 fourth and final chemotherapy treatment for chief complaint nausea, vomiting, diarrhea, abdominal cramping. Patient also has a history of Crohn's disease and prior C. difficile infection. Patient states that this always happens after her chemotherapy and she has had to be hospitalized after the prior 3 treatments. Patient states that she has had copious vomiting, mild foamy diarrhea, and left-sided sharp abdominal pain that comes and goes. She denies fever, chest pain, shortness of breath, back pain, urinary burning, URI symptoms, or any other ROS at this time.. 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 - Social history:: Smoking status: Patient denies any tobacco usage or history of. ROS: 07:40 Constitutional: Negative for fever, chills, and weight loss, Eyes: Negative for injury, sp3 pain, redness, and discharge, ENT: Negative for injury, pain, and discharge, Cardiovascular: Negative for chest pain, palpitations, and edema, Respiratory: Negative for shortness of breath, cough, wheezing, and pleuritic chest pain, Back: Negative for injury and pain, MS/Extremity: Negative for injury and deformity, Skin: Negative for injury, rash, and discoloration, Neuro: Negative for headache, weakness, numbness, tingling, and seizure, Psych: Negative for depression, anxiety, suicide ideation, homicidal ideation, and hallucinations, Allergy/Immunology: Negative for hives, rash, and allergies, Endocrine: Negative for neck swelling, polydipsia, polyuria, polyphagia, and marked weight changes. 07:40 All other systems are negative. Exam: 07:41 Constitutional: This is a well developed, well nourished patient who is awake, alert, sp3 and in no acute distress. Head/Face: Normocephalic, atraumatic. Eyes: Pupils equal round and reactive to light, extra-ocular motions intact. Lids and lashes normal. Conjunctiva and sclera are non-icteric and not injected. Cornea within normal limits. Periorbital areas with no swelling, redness, or edema. ENT: Nares patent. No nasal discharge, no septal abnormalities noted. External auditory canals are clear. Oropharynx with no redness, swelling, or masses, exudates, or evidence of obstruction, uvula midline. Mucous membranes moist. Neck: Trachea midline, no thyromegaly or masses palpated, and no cervical lymphadenopathy. Supple, full range of motion without nuchal rigidity, or vertebral point tenderness. No Meningismus. Chest/axilla: Normal chest wall appearance and motion. Nontender with no deformity. No lesions are appreciated. Respiratory: Lungs have equal breath sounds bilaterally, clear to auscultation and percussion. No rales, rhonchi or wheezes noted. No increased work of breathing, no retractions or nasal flaring. Back: No spinal tenderness. No costovertebral tenderness. Full range of motion. Skin: Warm, dry with normal turgor. Normal color with no rashes, no lesions, and no evidence of cellulitis. MS/ Extremity: Pulses equal, no cyanosis. Neurovascular intact. Full, normal range of motion. Neuro: Awake and alert, GCS 15, oriented to person, place, time, and situation. Cranial nerves II-XII grossly intact. Motor strength 5/5 in all extremities. Sensory grossly intact. Cerebellar exam normal. Normal gait. 07:41 Cardiovascular: Normal cardiac exam other than tachycardia.. 07:41 Abdomen/GI: Obese abdomen with mild left-sided pain to palpation without rebound, guarding, or peritoneal signs.. Vital Signs: 06:51 BP 113 / 80; Pulse 133; Resp 18 S; Temp 98.4(O); Pulse Ox 97% on R/A; Weight 90.72 kg bb (R); Height 5 ft. 2 in. (157.48 cm) (R); Pain 8/10; 07:15 BP 113 / 66; Pulse 110; Resp 16; Pulse Ox 97% on R/A; vg1 08:54 BP 105 / 61; Pulse 110; Resp 16; Pulse Ox 98% on R/A; vg1 10:27 BP 111 / 64; Pulse 94; Resp 16; Pulse Ox 96% on R/A; vg1 10:55 BP 102 / 62; Pulse 95; Resp 15; Pulse Ox 97% on R/A; vg1 12:00 BP 103 / 61; Pulse 95; Resp 15; Pulse Ox 96% on R/A; vg1 06:51 Body Mass Index 36.58 (90.72 kg, 157.48 cm) bb MDM: 07:06 Patient medically screened. sp3 07:42 Data reviewed: vital signs, nurses notes. ED course: 40-year-old female who presents sp3 after her chemotherapy treatment with dehydration, tachycardia, and gastroenteritis. Will evaluate with laboratory values, urinalysis, and CT scan of the abdomen pelvis while hydrating her with IV fluids and administering antiemetics and narcotic pain medications IV. Probable admission but ultimate disposition will be based on clinical course and patient data. At this time I am not highly suspicious for sepsis, mesenteric ischemia, tissue hypoperfusion/shock, or any other critical findings.. 09:55 ED course: She was mildly elevated lactate and abnormal electrolytes. Will replenish sp3 and continue IV fluids and antiemetics. Patient states that she still been having vomiting and is still extremely nauseated. Discussed with hospitalist and we will admit patient and 23 observation.. 06/06 07:06 Order name: CBC with Diff; Complete Time: 09:42 sp3 06/06 07:06 Order name: CMP; Complete Time: 08:34 sp3 06/06 07:06 Order name: Lipase; Complete Time: 08:34 sp3 06/06 07:06 Order name: Urine Microscopic Only sp3 06/06 07:06 Order name: Lactate; Complete Time: 09:42 sp3 06/06 07:55 Order name: Manual Differential; Complete Time: 09:42 EDMS 06/06 10:09 Order name: SARS-COV-2 RT PCR (Document "Date of Onset" if Symptomatic) iw 06/06 11:21 Order name: Urine Dipstick-Ancillary EDMS 06/06 11:52 Order name: Urinalysis EDMS 06/06 11:52 Order name: CBC with Automated Diff EDMS 06/06 11:52 Order name: CBC with Automated Diff EDMS 06/06 11:52 Order name: Comprehensive Metabolic Panel EDMS 06/06 11:52 Order name: Comprehensive Metabolic Panel EDMS 06/06 11:52 Order name: Magnesium EDMS 06/06 07:06 Order name: CT Abd/Pelvis - IV Contrast Only; Complete Time: 09:42 sp3 06/06 07:06 Order name: IV Saline Lock; Complete Time: 08:11 sp3 06/06 07:06 Order name: Labs collected and sent; Complete Time: 07:44 sp3 06/06 07:06 Order name: Urine Dipstick-Ancillary (obtain specimen); Complete Time: 11:21 sp3 06/06 11:52 Order name: Clear Liquid EDMS 06/06 11:52 Order name: Magnesium EDMS 06/06 11:52 Order name: Phosphorus EDMS 06/06 11:52 Order name: Phosphorus EDMS 06/06 13:32 Order name: Lactate Sepsis 2 HR Follow-up EDMS Administered Medications: 07:50 Drug: Zofran (Ondansetron) 4 mg Route: IVP; Site: right antecubital; vg1 08:53 Follow up: Response: No adverse reaction vg1 07:52 Drug: Dilaudid (HYDROmorphone) 1 mg Route: IVP; Site: right antecubital; vg1 08:53 Follow up: Response: No adverse reaction; Pain is decreased vg1 08:12 Drug: NS 0.9% 1000 ml Route: IV; Rate: 1 bolus; Site: right upper arm; iw 10:00 Follow up: IV Status: Completed infusion; IV Intake: 1000ml vg1 08:19 Drug: Phenergan (promethazine) 12.5 mg Route: IVP; Site: right upper arm; vg1 08:53 Follow up: Response: No adverse reaction; Marked relief of symptoms vg1 10:17 Drug: Dilaudid (HYDROmorphone) 1 mg Route: IVP; Site: right forearm; vg1 10:55 Follow up: Response: No adverse reaction; Pain is decreased vg1 Disposition Summary: 06/06/21 09:58 Hospitalization Ordered Hospitalization Status: Observation sp3 Provider: Robert Loco sp3 Condition: Stable sp3 Problem: an acute exacerbation sp3 Symptoms: have worsened sp3 Bed/Room Type: Standard sp3 Location: Telemetry/MedSurg (observation)(06/06/21 16:22) bd Room Assignment: 225(06/06/21 16:22) bd Diagnosis - Dehydration sp3 Forms: - Medication Reconciliation Form sp3 - SBAR form sp3 Signatures: Dispatcher [employer] EDMS Kaitlyn Maxwell Brenda, RN RN bb Williams, Irene, RN RN iw Garcia, Victoria RN RN vg1 Mary Ann Soto MD MD sp3 Corrections: (The following items were deleted from the chart) 09:58 09:55 ED course: She was mildly elevated lactate and abnormal electrolytes. Will sp3 replenish and continue IV fluids and antiemetics. Patient states that she. sp3 13:13 09:58 Telemetry/MedSurg (observation) sp3 iw 13:13 09:58 sp3 iw 16:22 13:13 [facility] ER HOLD iw bd 16:22 13:13 ERHOLD- iw bd
[2021-06-06] MEDS ORDERED: HYDROMORPHONE HCL 1 MG/ML INJ ONE ×2 (10:16→16:49)
[2021-06-06 11:21] LABS: Urine Blood Negative (Negative); Urine Glucose Negative (Negative); Urine Protein Negative (Negative)
[2021-06-06 11:33] LABS: Urine Bacteria NONE SEEN /HPF (<20); Urine RBC NONE SEEN /HPF (NONE SEEN)
[2021-06-06] MEDS ORDERED: MORPHINE 4 MG/ML SYR IV PRN (11:48)
[2021-06-06] MEDS ORDERED: PROMETHAZINE INJ 25 MG/ML AMP IM PRN (11:48)
--- NOTE | 2021-06-06 11:51 | P.HP ---
Certification for Inpatient Patient admitted to: Observation With expected LOS: <2 Midnights Practitioner: I am a practitioner with admitting privileges, knowledge of patient current condition, hospital course, and medical plan of care. 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 Patient reported she experience these symptoms with every round of chemotherapy. She reported poor oral intake over the past few days due to loss of appetite nausea and vomiting. She denied any fever. No hematemesis. She denied any dysuria or increased urinary frequency. Blood work is unremarkable except mildly elevated lactic acid level. Patient not tolerating p.o. She is placed under observation for supportive measures. Allergies No Known Allergies Allergy (Verified 04/04/21 23:48) Home Medications: Estradiol [Estrace] 0.5 mg PO BEDTIME 02/08/21 Fluoxetine HCl [Prozac] 40 mg PO BEDTIME 02/08/21 Ustekinumab [Stelara] 130 mg SQ ONCE 02/08/21 Gabapentin 300 mg PO BID 04/04/21 Ondansetron [Zofran (Odt)*] 4 mg PO Q6H PRN #30 tab 04/14/21 Hydrocodone 5/APAP 325 [Cabins 5/325*] 1 tab PO Q6H PRN #20 tab 04/28/21 Diphenox/Atropine [Lomotil*] 1 tab PO PRN PRN 06/06/21 - Past Medical/Surgical History Diabetic: No -: CROHNS -: DEPRESSION -: NHL -: TUBAL LIGATION -: HYSTERECTOMY -: Intestinal resection 2004 - Family History Mother -: Other (see notes) Notes: Crohns disease dad -: Cancer Notes: bladder cancer. - Social History Alcohol use: No CD- Drugs: No Caffeine use: Yes Review of Systems Other: Except as documented, all other systems reviewed and negative. Physical Examination - Physical Exam General: Alert, In no apparent distress, Oriented x3 HEENT: Normocephalic, PERRLA, Mucous membr. moist/pink, Sclerae nonicteric Neck: Supple, JVD not distended Respiratory: Clear to auscultation bilaterally, Normal air movement Cardiovascular: No edema, Regular rate/rhythm, Normal S1 S2, No murmurs Gastrointestinal: Normal bowel sounds, Soft and benign, Non-distended, Other (Mild diffuse tenderness) Musculoskeletal: No swelling, No tenderness Integumentary: No rashes, No erythema, No cyanosis Neurological: Normal speech, Normal strength at 5/5 x4 extr, Cranial nerves 3-12 intact Lymphatics: No axilla or inguinal lymphadenopathy - Studies Laboratory Data (last 24 hrs) 06/06/21 07:40: Sodium 137, Potassium 3.8, BUN 9, Creatinine 0.48 L, Glucose 110 H, Total Bilirubin 0.5, AST 12 L, ALT 25, Alkaline Phosphatase 109, Lipase 76 06/06/21 07:40: WBC 6.1, Hgb 11.2 L, Hct 32.2 L, Plt Count 130 L Assessment and Plan - Problems (Diagnosis) (1) Chemotherapy induced nausea and vomiting Current Visit: Yes Status: Acute (2) Abdominal pain Onset Date: 04/05/16 Current Visit: No Status: Acute (3) Crohn disease Current Visit: No Status: Acute (4) Non-Hodgkin lymphoma Current Visit: No Status: Acute - Plan Place patient under observation. UA with no evidence of UTI Supportive measures with IV normal saline. IV opiate as needed for pain Antiemetics-Zofran and Phenergan. Clear liquid diet Monitor and optimize electrolytes. Crohn's disease appears stable. - Advance Directives Does patient have a Living Will: No Does patient have a Durable POA for Healthcare: No
[2021-06-06 13:13] VITALS: BMI 36.6
[2021-06-06] MEDS: NA CHLORIDE 0.9% 1,000 ML IV SCH ×2 (13:15→21:37)
[2021-06-06] MEDS ORDERED: MORPHINE 4 MG/ML SYR ONE (15:08)
[2021-06-06] MEDS: ONDANSETRON 4 MG/2 ML VIAL IV PRN ×2 (15:12→21:32)
[2021-06-06] MEDS: HYDROMORPHONE HCL 1 MG/ML INJ IV ONE ×2 (16:43→17:00)
[2021-06-06] MEDS: HYDROMORPHONE HCL 1 MG/ML INJ IV PRN (21:32)
[2021-06-07] MEDS: HYDROMORPHONE HCL 1 MG/ML INJ IV PRN ×6 (02:33→23:54)
[2021-06-07 05:28] VITALS: O2SAT 96
[2021-06-07 05:51] LABS: Absolute Lymphocytes (CBC) 0.1 K/uL (0.7-4.9); Hematocrit 25.6 % (36.0-45.0); Lymphocytes % 10.2 % (15.3-44.8); MPV 7.7 fL (7.6-11.3); RBC Red Blood Cell Count 2.91 M/uL (3.86-4.86)
[2021-06-07 06:11] LABS: ALT/SGPT 33 U/L (12-78); AST/SGOT 20 U/L (15-37); Albumin 2.9 g/dL (3.4-5.0); Alkaline Phosphatase 102 U/L (45-117); BUN Blood Urea Nitrogen 4 mg/dL (7-18); Bicarbonate 29 mmol/L (21-32); Bilirubin Total 0.7 mg/dL (0.2-1.0); Glucose Level 106 mg/dL (74-106); Magnesium 2.1 mg/dL (1.8-2.4); Phosphorus 2.7 mg/dL (2.5-4.9); Potassium 3.6 mmol/L (3.5-5.1); Protein, Total 6.1 g/dL (6.4-8.2); Sodium Level 136 mmol/L (136-145)
[2021-06-07] MEDS: ONDANSETRON 4 MG/2 ML VIAL IV PRN ×4 (06:46→19:57)
[2021-06-07] MEDS ORDERED: ENOXAPARIN 40 MG/0.4 ML SQ SCH (09:00)
[2021-06-07 09:38] LABS: Toxic Granulation PRESENT
[2021-06-07 09:39] LABS: Anisocytosis SLIGHT; Blood Morphology Comment NOTED (NOT SEEN); Platelet Estimate DECR
[2021-06-07] MEDS: NA CHLORIDE 0.9% 1,000 ML IV SCH ×2 (11:19→21:53)
--- NOTE | 2021-06-07 14:27 | P.PN ---
Subjective Date of Service: 06/07/21 Chief Complaint: Nausea and vomiting Patient still experiencing nausea but she has been tolerating clear liquid diet. White cell count dropped significantly along with platelet count. Patient stated she got Neupogen shot 5 days ago. Physical Examination - Vital Signs Temperature: 98.2 F Blood Pressure: 118/56 Pulse: 109 Respirations: 18 Pulse Ox (%): 96 - Physical Exam General: Alert, In no apparent distress, Oriented x3 HEENT: Mucous membr. moist/pink Neck: JVD not distended Respiratory: Clear to auscultation bilaterally, Normal air movement Cardiovascular: No edema, Regular rate/rhythm, Normal S1 S2 Gastrointestinal: Normal bowel sounds, Soft and benign, Non-distended, No tenderness Musculoskeletal: No swelling Integumentary: No rashes Neurological: Normal strength at 5/5 x4 extr Assessment And Plan - Current Problems (Diagnosis) (1) Chemotherapy induced nausea and vomiting Current Visit: Yes Status: Acute (2) Abdominal pain Onset Date: 04/05/16 Current Visit: No Status: Acute (3) Crohn disease Current Visit: No Status: Acute (4) Non-Hodgkin lymphoma Current Visit: No Status: Acute (5) Pancytopenia Current Visit: No Status: Acute - Plan Continue supportive measures with IV normal saline. IV opiate as needed for pain Antiemetics-Zofran and Phenergan. Advance diet as tolerated. Monitor CBC to follow neutropenia and thrombocytopenia Monitor and replete electrolytes as needed. Crohn's disease appears stable.
[2021-06-07] MEDS: ACETAMINOPHEN 500 MG TAB PO PRN (17:56)
[2021-06-08] MEDS: ONDANSETRON 4 MG/2 ML VIAL IV PRN ×3 (05:00→21:12)
[2021-06-08] MEDS: HYDROMORPHONE HCL 1 MG/ML INJ IV PRN ×5 (05:00→21:11)
[2021-06-08 06:20] LABS: Bicarbonate 27 mmol/L (21-32); Glucose Level 111 mg/dL (74-106); Potassium 3.7 mmol/L (3.5-5.1); Sodium Level 138 mmol/L (136-145)
[2021-06-08 06:38] LABS: BUN Blood Urea Nitrogen < 3 mg/dL (7-18)
[2021-06-08 08:42] LABS: Absolute Lymphocytes (CBC) 0.1 K/uL (0.7-4.9); Hematocrit 24.7 % (36.0-45.0); Lymphocytes % 23.1 % (15.3-44.8); MPV 7.8 fL (7.6-11.3); RBC Red Blood Cell Count 2.81 M/uL (3.86-4.86)
[2021-06-08] MEDS: NA CHLORIDE 0.9% 1,000 ML IV SCH ×2 (09:36→17:19)
[2021-06-08 12:18] LABS: Anisocytosis SLIGHT; Blood Morphology Comment NOTED (NOT SEEN); Platelet Estimate DECR
--- NOTE | 2021-06-08 14:36 | P.PN ---
Subjective Date of Service: 06/08/21 Chief Complaint: Nausea and vomiting Patient not tolerating diet due to nausea and vomiting and abdominal pain White cell count continued to drop. No fever. Physical Examination - Vital Signs Temperature: 96.7 F Blood Pressure: 96/59 Pulse: 93 Respirations: 12 Pulse Ox (%): 94 - Physical Exam General: Alert, In no apparent distress, Oriented x3 HEENT: Mucous membr. moist/pink Neck: JVD not distended Respiratory: Clear to auscultation bilaterally, Normal air movement Cardiovascular: No edema, Normal pulses, Regular rate/rhythm, Normal S1 S2 Gastrointestinal: Normal bowel sounds, Non-distended, Tenderness (Diffuse) Musculoskeletal: No swelling Integumentary: No rashes, No cyanosis Neurological: Normal strength at 5/5 x4 extr Assessment And Plan - Current Problems (Diagnosis) (1) Chemotherapy induced nausea and vomiting Current Visit: Yes Status: Acute (2) Abdominal pain Onset Date: 04/05/16 Current Visit: No Status: Acute (3) Crohn disease Current Visit: No Status: Acute (4) Non-Hodgkin lymphoma Current Visit: No Status: Acute (5) Pancytopenia Current Visit: No Status: Acute - Plan Worsening neutropenia. Patient received filgrastim last week. Oncology contacted for input regarding pancytopenia, and waiting for response. Afebrile, no antibiotics for now. Continue supportive measures with IV normal saline. IV opiate as needed for pain Antiemetics-Zofran and Phenergan. She has not tolerated soft diet, will scale down to full liquid today. Monitor CBC to follow neutropenia and thrombocytopenia Monitor and replete electrolytes as needed. Crohn's disease appears stable.
[2021-06-09] MEDS: HYDROMORPHONE HCL 1 MG/ML INJ IV PRN ×4 (01:17→17:42)
[2021-06-09] MEDS: NA CHLORIDE 0.9% 1,000 ML IV SCH ×3 (01:19→17:41)
[2021-06-09 04:56] LABS: Absolute Lymphocytes (CBC) 0.2 K/uL (0.7-4.9); Hematocrit 25.7 % (36.0-45.0); Lymphocytes % 42.7 % (15.3-44.8); MPV 7.9 fL (7.6-11.3); RBC Red Blood Cell Count 2.95 M/uL (3.86-4.86)
[2021-06-09] MEDS ORDERED: NA CHLORIDE 0.9% 1,000 ML IV ONE (05:24)
[2021-06-09] MEDS: ACETAMINOPHEN 500 MG TAB PO PRN (06:14)
[2021-06-09] MEDS ORDERED: POTASSIUM CL SA 10 MEQ TAB PO ONE (09:00)
[2021-06-09] MEDS: ONDANSETRON 4 MG/2 ML VIAL IV PRN ×2 (09:25→17:42)
[2021-06-09 16:56] VITALS: BP 107/65; TEMP 97.4
--- NOTE | 2021-06-09 17:51 | P.DS ---
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 Patient reported she experience these symptoms with every round of chemotherapy. She reported poor oral intake over the past few days due to loss of appetite nausea and vomiting. She denied any fever. No hematemesis. She denied any dysuria or increased urinary frequency. Blood work is unremarkable except mildly elevated lactic acid level. Patient not tolerating p.o. she was hospitalized for further management. Hospital Course: Patient admitted to the medical floor and started on IV fluid. Patient was given antiemetics. She had no fever. Her symptoms improved with supportive measures. The diarrhea stopped. CBC was monitored which showed neutropenia. Patient received long-acting Neupogen 5 days prior. Case discussed with oncologist Dr. Reyna who recommended no Neupogen. Patient has clinically improved, now tolerating full liquid and soft diet with no vomiting. Patient is deemed clinically stable for discharge. She will follow with Dr. Reyna as an outpatient for monitoring. Vital Signs/Physical Exam: Temp Pulse Resp BP Pulse Ox 97.4 F 92 H 16 107/65 100 06/09/21 16:00 06/09/21 16:00 06/09/21 16:00 06/09/21 16:00 06/09/21 16:00 General: Alert, In no apparent distress, Oriented x3 HEENT: Mucous membr. moist/pink, Sclerae nonicteric Neck: JVD not distended Respiratory: Clear to auscultation bilaterally, Normal air movement Cardiovascular: No edema, Regular rate/rhythm, Normal S1 S2 Gastrointestinal: Soft and benign, Non-distended, No tenderness Musculoskeletal: No swelling Integumentary: No rashes Neurological: Normal strength at 5/5 x4 extr Laboratory Data at Discharge: WBC 0.6 K/uL (4.3-10.9) L* 06/09/21 04:26 Hgb 8.8 g/dL (12.0-15.0) L 06/09/21 04:26 Hct 25.7 % (36.0-45.0) L 06/09/21 04:26 Plt Count 84 K/uL (152-406) L* 06/09/21 04:26 Sodium 138 mmol/L (136-145) 06/08/21 05:35 Potassium 3.7 mmol/L (3.5-5.1) 06/08/21 05:35 BUN < 3 mg/dL (7-18) L 06/08/21 05:35 Creatinine 0.38 mg/dL (0.55-1.3) L 06/08/21 05:35 Glucose 111 mg/dL (74-106) H 06/08/21 05:35 Phosphorus 2.7 mg/dL (2.5-4.9) 06/07/21 05:36 Magnesium 2.1 mg/dL (1.8-2.4) 06/07/21 05:36 Total Bilirubin 0.7 mg/dL (0.2-1.0) 06/07/21 05:36 AST 20 U/L (15-37) 06/07/21 05:36 ALT 33 U/L (12-78) 06/07/21 05:36 Alkaline Phosphatase 102 U/L (45-117) 06/07/21 05:36 Lipase 76 U/L (73-393) 06/06/21 07:40 Home Medications: Estradiol [Estrace] 0.5 mg PO BEDTIME 02/08/21 Fluoxetine HCl [Prozac] 40 mg PO BEDTIME 02/08/21 Ustekinumab [Stelara] 130 mg SQ ONCE 02/08/21 Gabapentin 300 mg PO BID 04/04/21 Ondansetron [Zofran (Odt)*] 4 mg PO Q6H PRN #30 tab 04/14/21 Hydrocodone 5/APAP 325 [Boutte 5/325*] 1 tab PO Q6H PRN #20 tab 04/28/21 Diphenox/Atropine [Lomotil*] 1 tab PO PRN PRN 06/06/21 Promethazine Tab [Phenergan*] 25 mg PO Q6HP PRN #15 tab 06/09/21 New Medications: Promethazine Tab [Phenergan*] 25 mg PO Q6HP PRN #15 tab PRN Reason: Nausea / Vomiting Diet: Regular (Soft diet) Activity: Ad candis Followup: NONE,NONE [Primary Care Provider] - Molly Justice MD [ACTIVE - CAN ADMIT] - 1 Week Time spent managing pt's care (in minutes): 33
== END 2021-06-09 19:15 | disposition home or self-care (01) | DRG 392 ==
LOC: ER 06:19 → ERHOLD 11:53 → 2ND 17:08 → OBSVTOIN 06-08 14:32
PROVIDERS: ADMIT Internal Medicine; ATTEND Internal Medicine
DX: R11.2 Nausea with vomiting, unspecified (principal); C85.90 Non-Hodgkin lymphoma, unspecified, unspecified site; K50.90 Crohn's disease, unspecified, without complications; D61.818 Other pancytopenia; R19.7 Diarrhea, unspecified; D70.9 Neutropenia, unspecified; Z20.822 Contact with and (suspected) exposure to COVID-19
CPT/HCPCS: 36415; 74177; 80048; 80053; 81003; 81015; 83605; 83690; 83735; 84100; 85025; 99285; G0378; J1170; J1650; J2405; J2550; J7030; Q9967; U0003

== ENCOUNTER 2021-08-10 14:29 | Emergency (ER) | payer BC ==
--- OUTSIDE RECORDS SUMMARY | 2021-08-10 14:32 | XMS REPORT | Clinical Summary ---
:1980 Author Organization [facility] MD [facility] Address [facility] [place] [address] Care Team Providers Name Role Phone Juwan Guerrero MD Primary Care Provider Allergies Not on File Medications Not on file Active Problems Not on file Encounters Date Type Specialty Care Team Description 03/13/2021 Lab Requisition [facility] MD Witson, Anne S., MD 02/28/2021 Ancillary Procedure Radiology Juwan Guerrero M D Cancer 02/20/2021 Travel after 08/10/2020 Social History Tobacco Use Types Packs/Day Years Used Date Never Assessed Sex Assigned at Date Recorded Female 02/20/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 after 08/10/2020 Results Pathology Outside Interpretation (02/13/2021) Component Value Ref Test Analysis Performed Pathologis t Range Method Time At Signature Materials Accession#, Stained, Block, Unstained Collected Received 03/14/2021 [facility] Received A. [id number], 24 SS, 5 BLOCKS, 0 USS 02/13/2021 03/13/2021 8:07 AM THERMOFORMING MACHINE OPERATOR Diagnosis Lymph node (left upper neck), excisional biopsy: 03/14/2021 [facility] Electronically 8:07 AM signed by DIFFUSE LARGE B-CELL LYMPHOM A (70-80%) AND FOLLICULAR LYMPHOMA, GRADE 3B (20-30%) THERMOFORMING MACHINE OPERATOR Kevin Marquez MD on The neoplasm has a germinal center B-apolinar l immunophenotype and Ki-67 is ~90-95% 03/14/2021 at 8:07 AM Comment Histologic sections show lym ph node in which the architecture is almost completely replaced by lymphoma. Most (70-80%) of the neoplasm has a diffuse pattern, but there are also follicular areas (20-30% 0 03/14/2021 [facility] ). Both the diffuse and foll icular areas are composed of large neoplastic cells with features centroblasts. Many apoptotic cells are present and mitotic figures are easily identified. The diffuse areas show a starry judith pattern. 8:07 AM THERMOFORMING MACHINE OPERATOR We have reviewed immunohisto chemical studies performed [...] Charge Note: H&E Disclaimer "Some tests reported 03/14/2021 [facility] here may have been 8:07 AM developed and THERMOFORMING MACHINE OPERATOR performance characteristics determined by [facility] Pathology and Laboratory Medicine. These tests have not been specifically cleared or approved by the U.S. Food and Drug Administration. If applicable, controls were reviewed and showed appropriate reactivity." Specimen (Source) Anatomical Collection Method Collection Time Re ceived Time Location / / Volume Laterality Tissue 02/13/2021 03/13/2021 8:1 7 AM THERMOFORMING MACHINE OPERATOR Miranda Veliz MD LAB PATHOLOGY ORDERABLES Performing Organization Address City/State/ZIP Code Phon e Number [facility] [place] [address] [address] [place] (01/30/2021 9:06 AM THERMOFORMING MACHINE OPERATOR) Specimen (Source) Anatomical Location Collection Method / Collectio n Time Received Time / Laterality Volume Narrative Systemgenerated, Documentation - 021 9:06 AM THERMOFORMING MACHINE OPERATOR Study acquired at another institution. For comparison only. No MD [place] originated interpretation requested or a vailable. 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
--- OUTSIDE RECORDS SUMMARY | 2021-08-10 14:35 | XMS REPORT | Continuity of Care Document ---
:1980 Author Organization [facility] t Address [address] [place] [address] Care Team Providers Name Role Phone [phone] Primary Care Physician Unavailable SYSTEM, NOT IN Attending Clinician Unavailable HARLAN Attending Clinician Unavailable Fortino FELIX, M Attending Clinician Samira DONIS Attending Clinician RITESH Attending Clinician Unavailable Severiano BRYAN Attending Clinician Ritesh BRYAN Attending Clinician PATRICIA Attending Clinician Unavailable Marc Hill MD Attending Clinician Jose Alfredo BRYAN, S. Attending Clinician Ricki Ardon MD Attending Clinician Ricki ARDON Attending Clinician Unavailable VIPUL Attending Clinician Unavailable AGATA, W Attending Clinician Unavailable Mariam LEE Attending Clinician Unavailable Mariam Lee MD Attending Clinician LAB90 Attending Clinician Unavailable Harlan HEALTH MANAGER-C Attending Clinician Job FELIX, T Attending Clinician Unavailable Green HEALTH MANAGER Attending Clinician Abigail HEALTH MANAGER Attending Clinician ABIGAIL Attending Clinician Unavailable Doctor [...] Date Expiration Date S ource [place] - [id number] 2016 00:00:00 OUT OF STATE BCBS 2 [id number] 2020 00:00:00 Problems Condition Condition Condition Status Onset Resolution Last Treating Co mments Source Name Details Category Date Date Treatment Clinician Date Acute Acute Disease Active Univers colitis colitis 3-19 ity of 00:00: [place] 00 [facility] Colitis Colitis Disease Active Univers 3-17 ity of 00:00: [address] Depression Depression Disease Active K elsey 406 Sey[place] 00:00: 00 Inflammato Inflammato Disease Active Overview : Karolina ry bowel ry bowel 4-06 Formattin Sey bold disease disease 00:00: g [...] Resolved Vitamin D Vitamin D Disease Active Kinsey sey deficiency deficiency 4-06 Se ybold 00:00: 00 LLQ LLQ Disease Active 2018-03 Univers abdominal abdominal 1-03 ity of pain pain 00:00: [place] [facility] Chills Chills Disease Active 2018-03 Univers 0-03 ity of 00:00: [place] [facility] C. C. Disease Active 2018-03 Univers difficile difficile 0-02 ity of diarrhea diarrhea 00:00: [place] [facility] Intractabl Intractabl Disease Active 2018-03 U nivers e vomiting e vomiting 0-01 it y of 00:00: [place] 00 Medical Branch History of History of [...] of cholelithi cholelithi 00:00: g of this [place] asi asis 00 note Medical might be Branch different from the original. Added automatic ally from request for surgery [id number] Abdominal Abdominal Disease Active Uni vers pain pain 6-28 ity of 00:00: [place] 00 Medical Branch Crohn Crohn Disease Active Univers disease disease 5-04 ity of 00:00: [place] 00 Medical Branch Generalize Generalize Disease Active [...] abdominal abdominal [place] Obesity Obesity Disease Active Univers [...] Active Univers ALLERGIE Class ity of S [facility] [place] [facility] NO KNOWN Allergy Active [facility] Social History Social Habit Start Date Stop Date Quantity Comments Source History SDOH Karolina polanco Alcohol Frequency History SDOH Karolina polanco Alcohol Std Drinks History SDOH Karolina polanco Alcohol Binge History of Karolina Galicia tobacco use Exposure to Not sure [place] of SARS-CoV-2 [facility] (event) [place] Alcohol intake 2021-05-22 2021-05-22 Current drinker Laura Galicia 00:00:00 00:00:00 of alcohol (finding) Tobacco use and 2021-05-22 2021-05-22 Smokeless tobacco Will Galicia exposure 00:00:00 00:00:00 non-user Education 2021-05-18 2021-05-18 21 University of 00:00:00 00:00:00 [facility] [place] [facility] Alcohol Comment 2021-01-25 2021-01-25 social Karolina Bales ybold 00:00:00 00:00:00 Tobacco Comment 2021-01-25 2021-01-25 vape Karolina Se ybold 00:00:00 00:00:00 History SDOH 2018-12-03 2018-12-03 5 University o f Financial 00:00:00 00:00:00 [facility] [place] [facility] History SDHI Food 2018-12-03 2018-12-03 1 Univers ity of Worry 00:00:00 00:00:00 [place] [facility] History SDOH Food 2018-12-03 2018-12-03 1 Univers ity of Scarcity 00:00:00 00:00:00 [place] [facility] History SDOH 2018-12-03 2018-12-03 2 University o f Transport Med 00:00:00 00:00:00 [place] [facility] History SDHI 2018-12-03 2018-12-03 2 University o f Transport Non-Med 00:00:00 00:00:00 [place] M edical Branch Sex [birth year] At [birth year] F Universit y of 00:00:00 00:00:00 [place] MD [facility] Smoking Status Start Date Stop Date Source Ex-smoker 2021-05-22 00:00:00 2021-05-22 00:00:00 Karolina Nico jade Smokes tobacco daily 2021-01-18 00:00:00 Karolina Galicia Never smoker [facility] Current 2019-01-05 00:00:00 [facility] smoker Medical Branch Medications Ordered Filled Start Stop Current Ordering Indication Dosage Frequency Signature Comments Components Source Medication Medication Date Date Medication? Clinician (SIG) Name Name FLUoxetine Yes 40mg Take 40 mg U nivers 40 mg 3-21 by mouth ity of capsule 23:14: at [place] 00 bedtime. Medical Branch estradioL Yes .5mg [...] d oral 09:09: daily Capsule 40 Ustekinumab 2022-0 2022- No Inject Kinsey sey (STELARA 05-22 into the Seybol d SC) 09:09: 00:00 [...] (scale 7-10). Indication s: acute pain HYDROcodone 0 Yes [id number] 1{tbl} Take 1 Un alf -acetaminop 3-20 tablet by ity of hen 10-325 00:00: mouth [place] mg tablet 00 every 6 Medical (six) Branch hours as needed for Pain (scale 7-10). Indication s: acute pain HYDROcodone Yes Karolina -Acetaminop 3-20 Seybold hen 10-325 00:00: MG oral 00 Tablet KCL 2021- No 40meq 40 mEq, Univers (KLOR-CON 3-19 -19 Oral, ity of M20) tablet 15:00: 14:34 [place]CE, 1 [place] 40 mEq 00 :00 dose, On Medical Sat Branch 05/20/21 at 1000, Routine morpHINE 2021-0 202- No 2mg 2 mg, Slow Un alf injection 2 05-20-19 IV Push, ity of mg 10:15: 10:01 ONCE, 1 [place] 00 :00 dose, On Medical Sat Branch 05/20/21 at 0515, Routine HYDROcodone 2021-0 Yes 1{tbl} 1 tablet, Univers -acetaminop -19 Oral, ity of hen (NORCO) 09:05: Q6HPRN, Gaurang as 10-325 mg 22 Starting Medica l tablet 1 on Sat Branch tablet 05/20/21 at 0405, Until Discontinu ed, Routine, Pain (scale 4-6) loperamide 2021-0 Yes 2mg 2 mg, Univer s (IMODIUM 18 Oral, ity of A-D) 23:15: Q6HPRN, [place] capsule 2 23 Starting Medica l mg on Sat Branch 05/19/21 at 1815, Until Discontinu ed, Routine, Diarrhea morpHINE 2021-0 Yes 2mg 2 mg, Slow Uni vers injection 2 18 IV Push, ity of mg 21:15: Q3HPRN, [place] 00 Starting Medical on Sat Branch 05/19/21 at 1615, Until Discontinu ed, Routine, Pain (scale 7-10) NaCl 0.9% 2021-0 Yes 1000mL at 125 Univ ers (NS) IV 3-18 mL/hr, IV ity of infusion 20:15: [place]fusion, [place] 1,000 mL 00 CONTINUOUS Medic al , Starting Branch on Sat05/19/21 at 1515, Until Discontinu ed, Routine KCL 2021-0 2021- No 40meq 40 mEq, Univers (KLOR-CON -18 -18 Oral, ity of M20) tablet 14:00: 14:03 [place] 1 [place] 40 mEq 00 :00 dose, On Medical Fri Branch 05/19/21 at 0900, Routine KCL 2021-0 202- No 40meq 40 mEq, Univers (KLOR-CON -18 -18 Oral, ity of M20) tablet 10:45: 10:58 [place]CE[place] 1 [place] 40 mEq 00 :00 dose, On Medical Fri Branch 05/19/21 at 0545, Routine FLUoxetine Yes 40mg 40 mg, Unive rs (PROZAC) 318 Oral, QHS, ity o f capsule 40 04:15: First dose [place] mg 00 (after Medical last Branch modificati on) on Jade 05/18/21 at 2315, Until Discontinu ed, Routine morpHINE 2021- No 2mg 2 mg, Slow Un alf injection 2 05-19 IV Push, ity of mg 04:02: 21:13 [facility], [place] 15 :29 Starting Medical on [place] Branch 05/18/21 at 2302, Until 05/19/21 at 1613, Routine, Pain (scale 7-10) ondansetron Yes 4mg 4 mg, Slow Univers (ZOFRAN 05-19 IV Push, ity of (PF)) 02:54: Q6[place], [place] injection 4 28 Starting Medi parth mg on [facility] Branch 05/18/21 at 2154, Until Discontinu ed, Routine, Nausea and Vomiting (N/V) HYDROcodone 2021- No 1{tbl} 1 tablet, Univers -acetaminop 05-19 Oral, ity of hen (NORCO) 02:54: 04:02 Q6[facility], [place] 10-325 mg 25 :44 Starting Medica l tablet [address] [facility] Branch tablet 05/18/21 at 2154, Until Jade 05/18/21 at 2302, Routine, Pain (scale 7-10) acetaminoph 0 Yes 650mg 650 mg, Un alf en 05-19 Oral, ity of (TYLENOL) 02:54: Q6[facility], [place] tablet 650 20 Starting Medic al mg on [facility] Branch 05/18/21 at 2154, Until Discontinu ed, Routine, Pain (scale 1-3) piperacilli 2021-0 2021- No 3.375g 3.375 g, Univers n-tazobacta 05-1918 IV ity of m (ZOSYN) 02:15: 03:34 [...] Branch 05/18/21 at 1930, LEWIS FENTanyl PF No 100ug 100 mcg, Univers (SUBLIMAZE 05-18 [...] J[place] Branch 05/18/21 at 1630, STAT ciprofloxac No 400mg 400 mg, IV Univers in [...] n of therapy: 72 hours NaCl 0.9% No 1000mL at 999 Uni vers (NS) bolus 05-18 mL/hr, ity of infusion 21:00: 21:18 1,000 mL, [place] as 1,000 mL 00 :00 IV Medical Infusion, Branch ONCE, 1 dose, On [place] 3/17/22 at 1600, STAT metroNIDAZO 2021- No 500mg [...] of therapy: 72 hours iopamidol 2021- No [id number] 120mL 120 mL, Univers (ISOVUE 05-18 Intravenou [...] IV ity of (PHENERGAN) 19:15: 18:27 [place], [place] 12.5 mg in 00 :00 ONCE, 1 Medica l NaCl 0.9% dose, On Branch (NS) 50 mL Jade IV 05/18/21 at piggyback 1415, LEWIS HYDROcodone Yes Karolina -Acetaminop 2-25 Seybold hen (NORCO) 00:00: 5-325 MG 00 oral Tablet Diphenoxyla Yes Karolina te-Atropine 2-12 Seybold 2.5-0.025 00:00: MG oral 00 Tablet Gabapentin Yes Karolina 300 MG oral 1-26 Seybold Capsule 00:00: 00 Stelara 90 Yes Karolina MG/ML 1-18 Seybold subcutaneou 00:00: s Solution 00 Prefilled Syringe Alprazolam Yes [id number] .5mg Q.[id number] Take 1 Karolina 0.5 MG oral 1-11 [id number] tablet Seybold Tablet 00:00: 3D (0.5 mg [...] Solution 33 Prefilled Syringe Estrogens 2020-03 Yes [id number] Take one Karolina Conjugated 1-24 tablet Seybold (Premarin) 00:00: daily 0.3 MG oral 00 Tablet Ustekinumab 2020-03 Yes Inject Courtney ey 45 MG/0.5ML 1-17 into the Seyb old subcutaneou 10:59: skin s Solution 00 Prefilled Syringe Ustekinumab 2020-03 Yes Inject Courtney ey (STELARA 1-17 into the Seybold SC) 10:57: skin Every 52 8 Weeks hydrOXYzine 2020-03 Yes [id number] 10mg Q.[id number] Take 1 Karolina HCl 10 MG 1-17 [id number] tablet (10 Seybold oral Tablet 00:00: 3D mg total) 00 by mouth 3 times daily as needed for itching or anxiety Fluoxetine 2020-03 Yes [id number] 40mg Take 1 K elsey HCl 40 MG 1-17 capsule Seybold oral 00:00: (40 mg Capsule 00 total) by mouth daily hydrOXYzine 2020-03 Yes [id number] 10mg Q.[id number] Take 1 Karolina HCl 10 MG 1-17 [id number] tablet (10 Seybold oral Tablet 00:00: 3D mg total) 00 by mouth 3 times daily as needed for itching or anxiety Fluoxetine 2020-03 Yes [id number] 40mg Take 1 K elsey HCl 40 MG 1-17 capsule Seybold oral 00:00: (40 mg Capsule 00 total) by mouth daily hydrOXYzine 2020-03 Yes [id number] 10mg Q.[id number] Take 1 Karolina HCl 10 MG 1-17 [id number] tablet (10 Seybold oral Tablet 00:00: 3D mg total) 00 by mouth 3 times daily as needed for itching or anxiety Fluoxetine 2020-03 Yes [id number] 40mg Take 1 K elsey HCl 40 MG 1-17 capsule Seybold oral 00:00: (40 mg Capsule 00 total) by mouth daily HYDROcodone 2020- No 1{tbl} 1 tablet, Univers -acetaminop 10-02 Oral, ity of hen (NORCO 07:45: 06:47 ONCE, 1 [place] as 5) 5-325 mg 00 :00 dose, [place] Med ical tablet 1 10/02/20 at [place] tablet 0245, LEWIS dicyclomine 2020- No 20mg [...] Sun Medica l NaCl 0.9% 10/02/20 at [facility] h (NS) 50 mL 0145, 50 piggyback mL ondansetron 2020- No 4mg 4 mg, Slow Univers (ZOFRAN 10-02 IV Push, ity of (PF)) 05:15: 04:37 ONCE, 1 [place] injection 4 00 :00 dose, Sun Med ical mg 10/02/20 at Branch 0015, LEWIS Ustekinumab 0 Yes inject Univ ers 45 mg/0.5 8-01 under the ity o f mL SC 04:11: skin. [place] injection 16 Medical Branch Ustekinumab 2020-0 Yes inject Univ ers 45 mg/0.5 8-01 under the ity o f mL SC 04:11: skin. [place] injection 16 Medical Branch Ustekinumab 2020-0 Yes inject Univ ers 45 mg/0.5 8-01 under the ity o f mL SC 04:11: skin. [place] injection 16 Medical Branch Ustekinumab 0 Yes inject Univ ers 45 mg/0.5 8-01 under the ity o f mL SC 04:11: skin. [place] injection 16 Medical Branch Ustekinumab 2020-0 Yes inject Univ ers 45 mg/0.5 8-01 under the ity o f mL SC 04:11: skin. [place] injection 16 Medical Branch Ustekinumab 0 Yes inject Univ ers 45 mg/0.5 8-01 under the ity o f mL SC 04:11: skin. [place] injection 16 Medical Branch Promethazin 2020-0 Yes 25mg Q6H Take 25 mg Karolina e HCl 25 MG 8-01 by mouth Seyb old oral Tablet 00:00: every 6 00 hours as needed Promethazin 2020-0 Yes 25mg Q6H Take 25 mg Karolina e HCl 25 MG 8-01 by mouth Seyb old oral Tablet 00:00: every 6 00 hours as needed proMETHazin 2020-0 Yes [id number] 25mg Take 1 Univers e 25 mg 8-01 tablet by ity of tablet 00:00: mouth [place] 00 every 6 Medical (six) Branch hours as needed for N/V unresponsi ve to Ondansetro n. proMETHazin 2020-0 Yes [id number] 25mg Take 1 Univers e 25 mg 8-01 tablet by ity of tablet 00:00: mouth [place] 00 every 6 Medical (six) Branch hours as needed for N/V unresponsi ve to Ondansetro n. proMETHazin 2020-0 Yes [id number] 25mg Take 1 Univers e 25 mg 8-01 tablet by ity of tablet 00:00: mouth [place] 00 every 6 Medical (six) Branch hours as needed for N/V unresponsi ve to Ondansetro n. proMETHazin Yes [id number] 25mg Take 1 Univers e 25 mg 8-01 tablet by ity of tablet 00:00: mouth [place] 00 every 6 Medical (six) Branch hours as needed for N/V unresponsi ve to Ondansetro n. proMETHazin Yes [id number] 25mg Take 1 Univers e 25 mg 8-01 tablet by ity of tablet 00:00: mouth [place] 00 every 6 Medical (six) Branch hours as needed for N/V unresponsi ve to Ondansetro n. proMETHazin Yes [id number] 25mg Take 1 Univers e 25 mg 8-01 tablet by ity of tablet 00:00: mouth [place] 00 every 6 Medical (six) Branch hours as needed for N/V unresponsi ve to Ondansetro n. proMETHazin Yes [id number] 25mg Take 1 Univers e 25 mg 8-01 tablet by ity of tablet 00:00: mouth [place] 00 every 6 Medical (six) Branch hours as needed for N/V unresponsi ve to Ondansetro n. proMETHazin Yes [id number] 25mg Take 1 Univers e 25 mg 8-01 tablet by ity of tablet 00:00: mouth [place] 00 every 6 Medical (six) Branch hours as needed for N/V unresponsi ve to Ondansetro n. Promethazin 2021- No 25mg Q.25D Take 25 mg Karolina e HCl 25 MG 10-02 by mouth Sey bold oral Tablet 00:00: 00:00 every 6 00 :00 hours as needed ondansetron 2020- No 4mg 4 mg, Slow Univers (ZOFRAN 07-20 IV Push, ity of (PF)) 00:15: 23:18 ONCE, 1 [place] injection 4 00 :00 dose, Tue Med ical mg 07/19/20 at Branch 1915, Routine morpHINE 2020- No 4mg 4 mg, Slow Un alf injection 4 07-20 IV Push, ity of mg 00:15: 23:18 ONCE, 1 [place] 00 :00 dose, Tu Medical 07/19/20 at Branch 1915, STAT NaCl 0.9% No 500mL at 999 Univ ers (NS) bolus 5-18 05-18 mL/hr, 500 it y of infusion 22:30: 23:18 mL, IV [place] 500 mL 00 :00 Infusion, Medical ONCE, 1 Branch dose, [facility] 07/19/20 at 1730, STAT Ondansetron 2020-0 Yes 4mg Q.[id number] Take 4 mg Karolina (ZOFRAN) 4 5-18 [id number] by mouth Seybold MG oral 00:00: 3D [...] TABLET 00 hours as DISPERSIBLE needed ondansetron 2020-0 Yes [id number] 4mg Take 1 Univers (ZOFRAN 5-18 tablet by ity of ODT) 4 mg 00:00: mouth [place] disintegrat 00 every 8 Medic al ing tablet (eight) Branch hours as needed for Nausea and Vomiting (N/V). ondansetron 2020-0 Yes [id number] 4mg Take 1 Univers (ZOFRAN 5-18 tablet by ity of ODT) 4 mg 00:00: mouth [place] disintegrat 00 every 8 Medic al ing tablet (eight) Branch hours as needed for Nausea and Vomiting (N/V). ondansetron 2020-0 Yes [id number] 4mg Take 1 Univers (ZOFRAN 5-18 tablet by ity of ODT) 4 mg 00:00: mouth [place] disintegrat 00 every 8 Medic al ing tablet (eight) Branch hours as needed for Nausea and Vomiting (N/V). ondansetron 2020-0 Yes [id number] 4mg Take 1 Univers (ZOFRAN 5-18 tablet by ity of ODT) 4 mg 00:00: mouth [place] disintegrat 00 every 8 Medic al ing tablet (eight) Branch hours as needed for Nausea and Vomiting (N/V). ondansetron 2021-0 Yes [id number] 4mg Take 1 Univers (ZOFRAN 5-18 tablet by ity of ODT) 4 mg 00:00: mouth [place] disintegrat 00 every 8 Medic al ing tablet (eight) Branch hours as needed for Nausea and Vomiting (N/V). ondansetron 202-0 Yes [id number] 4mg Take 1 Univers (ZOFRAN 5-18 tablet by ity of ODT) 4 mg 00:00: mouth [place] disintegrat 00 every 8 Medic al ing tablet (eight) Branch hours as needed for Nausea and Vomiting (N/V). ondansetron 2020-0 Yes [id number] 4mg Take 1 Univers (ZOFRAN 5-18 tablet by ity of ODT) 4 mg 00:00: mouth [place] disintegrat 00 every 8 Medic al ing tablet (eight) Branch hours as needed for Nausea and Vomiting (N/V). ondansetron 2020-0 Yes [id number] 4mg Take 1 Univers (ZOFRAN 5-18 tablet by ity of ODT) 4 mg 00:00: mouth [place] disintegrat 00 every 8 Medic al ing tablet (eight) Branch hours as needed for Nausea and Vomiting (N/V). ondansetron 2020-0 Yes [id number] 4mg Take 1 Univers (ZOFRAN 5-18 tablet by ity of ODT) 4 mg 00:00: mouth [place] disintegrat 00 every 8 Medic al ing tablet (eight) Branch hours as needed for Nausea and Vomiting (N/V). Fluoxetine 2020-0 Yes [id number] 20mg Take 1 K elsey HCl 20 MG 4-06 capsule Seybold oral 00:00: (20 mg Capsule 00 total) by mouth daily Fluoxetine 2020-0 Yes 20mg Take 20 mg K elsey HCl 20 MG 4-06 by mouth Seybol d oral 00:00: Capsule 00 Fluoxetine 2020-0 Yes [id number] 20mg Take 1 K elsey HCl 20 MG 4-06 capsule Seybold oral 00:00: (20 mg Capsule 00 total) by mouth daily Fluoxetine 2020-0 Yes 20mg Take 20 mg K elsey HCl 20 MG 4-06 by mouth Seybol d oral 00:00: Capsule 00 FLUoxetine 2020-0 Yes 20mg Take 20 mg U nivers 20 mg 4-06 by mouth. ity of capsule 00:00: [address] FLUoxetine 2020-0 Yes 20mg Take 20 mg U nivers 20 mg 4-06 by mouth. ity of capsule 00:00: [address] FLUoxetine 2020-0 Yes 20mg Take 20 mg U nivers 20 mg 4-06 by mouth. ity of capsule 00:00: [place] [facility] FLUoxetine 202-0 Yes 40mg Take 40 mg U nivers 20 mg 4-06 by mouth. ity of capsule 00:00: [place] [facility] FLUoxetine 202-0 Yes 40mg Take 40 mg U nivers 20 mg 4-06 by mouth. ity of capsule 00:00: [place] [facility] FLUoxetine 2020-0 Yes 20mg Take 20 mg U nivers 20 mg 4-06 by mouth. ity of capsule 00:00: [place] [facility] FLUoxetine 2020-0 Yes 20mg Take 20 mg U nivers 20 mg 4-06 by mouth. ity of capsule 00:00: [address] FLUoxetine 2020-0 Yes 20mg Take 20 mg U nivers 20 mg 4-06 by mouth. ity of capsule 00:00: [address] Fluoxetine 2020-0 2022- No [id number] 20mg Take 1 Karolina HCl 20 MG 4-06 03-21 capsule Seybol d oral 00:00: 00:00 (20 mg Capsule 00 :00 total) by mouth daily Fluoxetine 2020-0 2022- No 20mg Take 20 mg Karolina HCl 20 MG 4-06 -21 by mouth Seybo ld oral 00:00: 00:00 Capsule 00 :00 lactobacill 2020-0 Yes [id number] 1{tbl} Take 1 Univers us 5-30 tablet by ity of acidophilus 00:00: mouth 2 Gaurang as 25 million 00 (two) Medical cell -100 times Branch mg captab daily. lactobacill 2020-0 Yes [id number] 1{tbl} Take 1 Univers us 5-30 tablet by ity of acidophilus 00:00: mouth 2 [place]aurang as 25 million 00 (two) Medical cell -100 times Branch mg captab daily. lactobacill 2020-0 Yes [id number] 1{tbl} Take 1 Univers us 5-30 tablet by ity of acidophilus 00:00: mouth 2 Gaurang as 25 million 00 (two) Medical cell -100 times Branch mg captab daily. lactobacill 2019-2020- No [id number] 1{tbl} Take 1 Univers us 5-30 07-31 [...] ONCE, 1 [place] 00 :00 dose, Sat [facility] 03/28/19 at [place] 2114, STAT diphenhydrA 2019- No 25mg 25 mg, Uni vers MINE 03-29 Slow IV ity of (BENADRYL) 03:15: 02:25 Push, [place] injection 00 :00 ONCE, 1 Medical 25 mg dose, Sat [place] 03/28/19 at 2114, STAT iohexol 2019-2019- No 120mL 120 mL, Unive rs (OMNIPAQUE 03-29 Intravenou it y of 350 02:45: 02:32 s, ONCE, 1 [place] BULK-100 00 :00 dose, Sat Medica l mL) 03/28/19 at [place] injection 2044, 120 mL Routine ondansetron 2019- No 4mg 4 mg, Slow Univers (ZOFRAN 03-29 IV Push, ity of (PF)) 02:15: 01:11 ONCE, 1 [place] injection 4 00 :00 dose, Sat Med ical mg 03/28/19 at Branch 2014, LEWIS morpHINE 2019-0 2019- No 4mg 4 mg, Slow Un alf injection 4 03-29 IV Push, ity of mg 02:15: 01:11 ONCE, 1 [place] 00 :00 dose, Sat Medical 1/25/20 at Branch 2015, STAT traMADol 50 2020-0 Yes [id number] 50mg Take 1 Univers mg tablet 1-25 tablet by ity o f 00:00: mouth [place] 00 every 6 Medical (six) Branch hours as needed for Pain (scale 4-6). ondansetron 2020-0 Yes [id number] 8mg Take 1 Univers (ZOFRAN 1-25 tablet by ity of ODT) 8 mg 00:00: mouth [place] disintegrat 00 every 8 Medic al ing tablet (eight) Branch hours as needed for Nausea and Vomiting (N/V). traMADol 50 2020-0 Yes 50mg Take 1 Univers mg tablet 1-25 tablet by ity o f 00:00: mouth [place] 00 every 6 Medical (six) Branch hours as needed for Pain (scale 4-6). ondansetron 2020-0 Yes [id number] 8mg Take 1 Univers (ZOFRAN 1-25 tablet by ity of ODT) 8 mg 00:00: mouth [place] disintegrat 00 every 8 Medic al ing tablet (eight) Branch hours as needed for Nausea and Vomiting (N/V). traMADol 50 2020-0 Yes [id number] 50mg Take 1 Univers mg tablet 1-25 tablet by ity o f 00:00: mouth [place] 00 every 6 Medical (six) Branch hours as needed for Pain (scale 4-6). ondansetron 2020-0 Yes [id number] 8mg Take 1 Univers (ZOFRAN 1-25 tablet by ity of ODT) 8 mg 00:00: mouth [place] disintegrat 00 every 8 Medic al ing tablet (eight) Branch hours as needed for Nausea and Vomiting (N/V). traMADol 50 2020-0 Yes [id number] 50mg Take 1 Univers mg tablet 1-25 tablet by ity o f 00:00: mouth [place] 00 every 6 Medical (six) Branch hours as needed for Pain (scale 4-6). traMADol 50 2020-0 2020- No [id number] 50mg Take 1 Univers mg tablet 1-25 07-31 tablet by ity of 00:00: 00:00 mouth [place] 00 :00 every 6 Medical (six) Branch hours as needed for Pain (scale 4-6). ondansetron 2020-0 2020- No [id number] 8mg Take 1 Univers (ZOFRAN 1-25 05-18 tablet by ity of ODT) 8 mg 00:00: 00:00 mouth [place] disintegrat 00 :00 every 8 Medic al ing tablet (eight) Branch hours as needed for Nausea and Vomiting (N/V). Immunizations Ordered Filled Immunization Date Status Comments [facility] e Immunization Name Name Influenza Virus 2020-06-07 Completed Karolina davidfreedom Vaccine, No 00:00:00 Preserv, age 6 months and up Tdap- (Boostrix, 2020-06-07 Completed Karolina garaybold Adacel) 00:00:00 Influenza Virus 2020-06-07 Completed Karolina Se hernandezold Vaccine, No 00:00:00 Preserv, age 6 months and up Tdap- (Boostrix, 2020-06-07 Completed Karolina garaybold Adacel) 00:00:00 Influenza Virus 2020-06-07 Completed Karolina ybold Vaccine, No 00:00:00 Preserv, age 6 months and up Tdap- (Boostrix, 2020-06-07 Completed Karolina Walsh eybold Adacel) 00:00:00 Influenza Virus 2020-06-07 Completed Universit y of Vaccine Quad IM 3+ 00:00:00 [facility] TDAP 2020-06-07 Completed [facility] 00:00:00 [facility] [place] [facility] Influenza Virus 2020-06-07 Completed Universit y of Vaccine Quad IM 3+ 00:00:00 [facility] TDAP 2020-06-07 Completed [facility] 00:00:00 [facility] [place] [facility] Influenza, 2014-02-17 Completed Karolina Galicia Seasonal, 00:00:00 Injectable, Preservative Free Influenza, 2014-02-17 Completed Karolina Galicia Seasonal, 00:00:00 Injectable, Preservative Free Influenza, 2014-02-17 Completed Karolina Galicia Seasonal, 00:00:00 Injectable, Preservative Free Influenza Virus 2014-02-17 Completed Universit y of Vaccine (3+ yrs) 00:00:00 [facility] Influenza Virus 2014-02-17 Completed Universit y of Vaccine (3+ yrs) 00:00:00 [facility] Hepatitis B, Adult 2010-12-20 Completed Karolina Galicia (3 dose) 00:00:00 MMR- Measles, 2010-12-20 Completed Karolina Stuart old Mumps, Rubella 00:00:00 Hepatitis B, Adult 2010-12-20 Completed Karolina Stuartold (3 dose) 00:00:00 MMR- Measles, 2010-12-20 Completed [...] 00:00:00 Hepatitis B, Adult 2010-12-20 Completed Karolina Stuartold (3 dose) 00:00:00 MMR- Measles, 2010-12-20 Completed Karolina Stuart old Mumps, Rubella 00:00:00 HEP B, Adult Dosage 2010-12-20 Completed Unive rsity of 00:00:00 [facility] MMR 2010-12-20 Completed University 00:00:00 [facility] HEP B, Adult Dosage 2010-12-20 Completed Unive rsity of 00:00:00 [facility] MMR 2010-12-20 Completed University of 00:00:00 [facility] Hepatitis B, Adult 2010-11-20 Completed Karolina Staurtold (3 dose) 00:00:00 MMR- Measles, 2010-11-20 Completed Karolina Stuart old Mumps, Rubella 00:00:00 HEPATITIS A- ADULT 2010-11-20 Completed Karolina Galicia 00:00:00 Tdap- (Boostrix, 2010-11-20 Completed Karolina hansen Adacel) 00:00:00 Hepatitis B, Adult 2010-11-20 Completed Karolina Stuartold [...] Dosage 2010-11-20 Completed Unive rsity of 00:00:00 [facility] HEPATITIS A 2010-11-20 Completed University of 00:00:00 [facility] MMR 2010-11-20 Completed University of 00:00:00 [facility] TDAP 2010-11-20 Completed University of 00:00:00 [facility] HEP B, Adult Dosage 2010-11-20 Completed Unive rsity of 00:00:00 [facility] HEPATITIS A 2010-11-20 Completed University of 00:00:00 [facility] MMR 2010-11-20 Completed University of 00:00:00 [facility] TDAP 2010-11-20 Completed University of 00:00:00 [facility] History Of Chicken 1983-03-04 Completed Karolina Seybold Pox 00:00:00 History Of Chicken 1983-03-04 Completed Karolina Seybold Pox 00:00:00 History Of Chicken 1983-03-04 Completed Karolina Seybold Pox 00:00:00 Vital Signs Vital Name Observation Time Observation Value Comments Source Systolic blood 2021-05-22 14:00:00 120 mm[Hg] Karolina Seybfreedom pressure Diastolic blood 2021-05-22 14:00:00 84 mm[Hg] Kelse y Seybold pressure Heart rate 2021-05-22 14:00:00 122 /min Karolina garaybocollin Body temperature 2021-05-22 14:00:00 36.39 Zulma Courtney ey Seybold Respiratory rate 2021-05-22 14:00:00 16 /min Courtney garay Seybfreedom Body height 2021-05-22 14:00:00 157.5 cm Karolina garaybocollin Body weight 2021-05-22 14:00:00 92.534 kg Karolina hansen BMI 2021-05-22 14:00:00 37.31 kg/m2 Karolina garaybocollin Systolic blood 2021-05-21 12:50:00 109 mm[Hg] Univer sity of [facility] Diastolic blood 2021-05-21 12:50:00 68 mm[Hg] Unive rsity of [facility] Heart rate 2021-05-21 12:50:00 93 /min [facility] Body temperature 2021-05-21 12:50:00 36.11 Zulma [facility] Res[facility] 2021-05-21 12:50:00 14 /min [facility] Oxygen saturation in 2021-05-21 12:50:00 93 /min [facility] Arterial blood by [facility] Pulse oximetry Branch Body weight 2021-05-21 08:49:00 91.989 kg Universi ty [facility] BMI 2021-05-21 08:49:00 37.09 kg/m2 Universi [facility] Body height 2021-05-19 03:18:00 157.5 cm [facility] Systolic blood 2021-01-25 17:11:00 128 mm[Hg] Karolina Seybold pressure Diastolic blood 2021-01-25 17:11:00 70 mm[Hg] Kinseyse y Seybfreedom pressure Heart rate 2021-01-25 17:11:00 82 /min Karolina Walsh eybold Respiratory rate 2021-01-25 17:11:00 16 /min Courtney Galicia Body height 2021-01-25 17:11:00 157.5 cm Karolina garaybocollin Body weight 2021-01-25 17:11:00 91.173 kg Karolina garaybold BMI 2021-01-25 17:11:00 36.76 kg/m2 Karolina garaybocollin Oxygen saturation in 2021-01-25 17:11:00 98 /min Karolina Galicia Arterial blood by Pulse oximetry Systolic blood 2021-01-18 16:52:00 126 mm[Hg] Karolina Seybold pressure Diastolic blood 2021-01-18 16:52:00 74 mm[Hg] Kelse y Seybold pressure Heart rate 2021-01-18 16:52:00 80 /min Karolina garaybocollin Body temperature 2021-01-18 16:52:00 36.5 Zulma Courtney garay Seybfreedom Respiratory rate 2021-01-18 16:52:00 14 /min Courtney Galicia Body height 2021-01-18 16:52:00 157.5 cm Karolina garaybocollin Body weight 2021-01-18 16:52:00 91.173 kg Karolina garaybold BMI 2021-01-18 16:52:00 36.76 kg/m2 Karolina garaybocollin Systolic blood 2020-11-02 17:28:00 117 mm[Hg] Univer sity of pressure [facility] Diastolic blood 2020-11-02 17:28:00 75 mm[Hg] Unive rsity of pressure [facility] Heart rate 2020-11-02 17:28:00 80 /min Universi ty of [facility] Respiratory rate 2020-11-02 17:28:00 20 /min Univ ersity of [facility] Body height 2020-11-02 17:28:00 157.5 cm Universi ty [facility] Body weight 2020-11-02 17:28:00 90.719 kg Universi ty of [facility] BMI 2020-11-02 17:28:00 36.58 kg/m2 Universi [facility] Oxygen saturation in 2020-11-02 17:28:00 99 /min University Arterial blood by [facility] Pulse oximetry Branch Systolic blood 2020-10-02 04:23:00 124 mm[Hg] Univer sity of pressure [facility] Diastolic blood 2020-10-02 04:23:00 86 mm[Hg] Unive rsity of pressure [facility] Heart rate 2020-10-02 04:23:00 76 /min Universi ty of [facility] Respiratory rate 2020-10-02 04:23:00 17 /min Univ ersity of [facility] Oxygen saturation in 2020-10-02 04:23:00 96 /min University of Arterial blood by [place] [facility] Pulse oximetry Branch Body temperature 2020-10-02 03:27:00 37.11 Zulma Univ ersity of [facility] Body height 2020-10-02 03:27:00 157.5 cm Universi ty of [facility] Body weight 2020-10-02 03:27:00 91.173 kg Universi ty [facility] BMI 2020-10-02 03:27:00 36.76 kg/m2 Universi ty [facility] Systolic blood 2020-07-20 00:00:00 144 mm[Hg] Univer sity of pressure [facility] Diastolic blood 2020-07-20 00:00:00 90 mm[Hg] Unive rsity of pressure [facility] Heart rate 2020-07-20 00:00:00 69 /min Universi ty of [facility] Respiratory rate 2020-07-20 00:00:00 18 /min Univ ersity of [facility] Oxygen saturation in 2020-07-20 00:00:00 95 /min University of Arterial blood by [place] [facility] Pulse oximetry Branch Body temperature 2020-07-19 21:57:00 37.22 Zulma Univ ersity of [facility] Body weight 2020-07-19 21:57:00 99.338 kg Universi ty of [facility] BMI 2020-07-19 21:57:00 40.06 kg/m2 Universi ty [facility] Systolic blood 2019-03-29 03:00:00 112 mm[Hg] Univer sity of pressure [facility] Diastolic blood 2019-03-29 03:00:00 66 mm[Hg] Unive rsity of pressure [facility] Heart rate 2019-03-29 03:00:00 76 /min Universi ty of [facility] Respiratory rate 2019-03-29 03:00:00 16 /min [facility] Oxygen saturation in 2019-03-29 03:00:00 98 /min [facility] Arterial blood by [facility] Pulse oximetry [place] Body temperature 2019-03-29 00:03:00 36.39 Zulma [facility] Body height 2019-03-29 00:03:00 157.5 cm [facility] Body weight 2019-03-29 00:03:00 99.791 kg [facility] BMI 2019-03-29 00:03:00 40.24 kg/m2 [facility] Procedures Procedure Date / Time Performing Clinician Source Performed LS RAPID STREP ASSAY-LAB 2021-05-22 14:18:41 Dario Hogan TEST BASIC METABOLIC PANEL 2021-05-21 10:01:00 Jose Robles [facility] (NA, K, CL, CO2, GLUCOSE, Medica l Branch BUN, CREATININE, CA) CBC WITH DIFF 2021-05-21 10:01:00 Jose Robles [facility] BASIC METABOLIC PANEL 2021-05-20 10:12:00 [facility] (NA, K, CL, CO2, GLUCOSE, Medica l Branch BUN, CREATININE, CA) CBC WITH DIFF 2021-05-20 10:12:00 [facility] FECAL PATHOGENS BY PCR 2021-05-19 19:09:00 Jackie Awad [facility] BASIC METABOLIC PANEL 2021-05-19 08:37:00 [facility] (NA, K, CL, CO2, GLUCOSE, Medica l [place] BUN, CREATININE, CA) CBC WITH DIFF 2021-05-19 08:37[facility] 2021-05-18 20:45:00 Ronnie العلي [facility] FECES CULTURE 2021-05-18 18:26:00 Severiano Ronnie [facility] OCCULT (GUAIAC) BLOOD 2021-05-18 18:26:00 Ronnie العلي [facility] CLOSTRIDIUM DIFFICILE 2021-05-18 18:26:00 Ronnie العلي [facility] TOXIN [facility] Branch LACTIC ACID WHOLE BLOOD 2021-05-18 18:23:00 Ronnie العلي [facility] BLOOD CULTURE SCREEN 2021-05-18 18:21:00 Ronnie العلي [facility] COMP. METABOLIC PANEL 2021-05-18 18:21:00 Ronnie العلي [facility] ([id number]) Medical [place] CBC WITH DIFF 2021-05-18 18:21:00 Ronnie العلي [facility] PROTHROMBIN TIME / INR 2021-05-18 18:21:00 Ronnie العلي [facility] ACTIVATED PARTIAL 2021-05-18 18:21:00 Ronnie العلي [facility] THRMPLAS SHAHRIAR [facility] URINALYSIS 2021-05-18 18:21:00 Severiano Ronnie [facility] COVID-19 (ID NOW RAPID 2021-05-18 18:21:00 Ronnie العلي [facility] TESTING) [facility] LAB ONLY COVID 2021-05-18 18:21:00 Ronnie العلي [facility] INTERPRETATION [facility] CONSENT/REFUSAL FOR 2021-05-18 17:31:08 Doctor Unassjason, [facility] DIAGNOSIS AND TREATMENT [place] [facility] [place] NOTICE OF PRIVACY 2021-05-18 17:30:52 Doctor Unassigned, [facility] PRACTICES [place] [facility] PATHOLOGY OUTSIDE 2021-02-13 00:00:00 Miranda Veliz [facility] INTERPRETATION [facility] er Center OSI CT SFT TISS NECK 2021-01-30 15:06:00 Juwan Ardon [facility] er Center ASSIGNMENT OF BENEFITS 2020-11-02 16:11:47 Doctor Unassigned, [facility] [place] [facility] [place] LIPASE 2020-10-02 04:35:00 Jose Rodriguez [place] o [facility] COMP. METABOLIC PANEL 2020-10-02 04:35:00 Jose Rodriguez [facility] ([id number]) Medical Branch CBC WITH DIFF 2020-10-02 04:35:[address] [facility] Branch URINALYSIS 2020-10-02 04:32:[address] [facility] Branch CONSENT/REFUSAL FOR 2020-10-02 03:12:32 Doctor Rosie [facility] DIAGNOSIS AND TREATMENT [place] [facility] COVID-19 (ID NOW RAPID 2020-07-20 00:02:00 Zen Paz [facility] TESTING) Medical Branch LIPASE 2020-07-19 22:26:00 Zen Paz [facility] COMP. METABOLIC PANEL 2020-07-19 22:26:00 Singer Zen [facility] ([id number]) Medical Branch CBC WITH DIFF 2020-07-19 22:26:00 Singer [facility] URINALYSIS 2020-07-19 22:26:00 Paz [facility] NOTICE OF PRIVACY 2020-07-19 21:38:41 Doctor Rosie [facility] [place] [facility] [place] CONSENT/REFUSAL FOR 2020-07-19 21:37:52 Doctor Rosie [facility] DIAGNOSIS AND TREATMENT [place] Medical Branch CT ABDOMEN PELVIS W 2019-03-29 02:36:34 Jose Rodriguez [facility] Medical Branch POCT TEST 2019-03-29 00:48:00 Jose Rodriguez [facility] Medical Branch LIPASE 2019-03-29 00:47:00 Jose Rodriguez [facility] COMP. METABOLIC PANEL 2019-03-29 00:47:00 Jose Rodriguez [facility] ([id number]) Medical Branch CBC WITH DIFFERENTIAL 2019-03-29 00:47:00 Jose Rodriguez [facility] URINALYSIS 2019-03-29 00:47:00 Jose Rodriguez [facility] NOTICE OF PRIVACY 2019-03-28 23:58:28 Doctor Rosie [facility] PRACTICES [place] Medical Branch CONSENT/REFUSAL FOR 2019-03-28 23:55:31 Doctor Rosie [facility] DIAGNOSIS AND TREATMENT [place] [facility] [place] Encounters Start End Encounter Admission Attending Care Care Encounter Source Date/Time Date/Time Type Type Clinicians Facility Department ID 2021-02-21 Outpatient SYSTEM, [facility] CUCA [id number] 16:13:12 PROVIDER Kuldip guidry 2021-01-02 Emergency [facility] [id number] Univers 12:14:09 ity [facility] 2021-01-01 Emergency X [facility] ERT [id number] Univers 19:53:57 ity [facility] 2021-01-01 Emergency [facility] [id number] Univers 19:53:02 ity [facility] 2021-07-18 2021-07-18 Outpatient KAROLINA CLAROS [id number] Karolina 00:00:00 00:00:00 ANNABELLA calderón 2021-05-23 2021-05-23 Transition CARMITA Freitas 1.2.840.114 [id number] Univers 00:00:00 00:00:00 of Care Chrissie NAGY [id number] i ty of [place] 4.2.7.2.686 [facility] [id number] [facility] 403 Branch 2021-05-22 2021-05-22 Office Myron Hogan 1.2.840.114 [id number] Karolina 09:00:00 09:15:00 Visit Dario Weaver 350.1.13.13 Se rosa 1.2.7.2.686 [id number] 2021-05-18 2021-05-21 Inpatient X RITESH SCGREGORIO JULIO CÉSAR [id number] Univers 12:37:00 11:14:00 JACKIE villafana [facility] 2021-05-18 2021-05-21 [facility] Ronnie العلي [facility] 1.2.840.1 [id number] Univers 12:37:00 11:14:00 Encounter Jackie Awad [id number] ity of [place] [id number] [facility] 081 Branch 2021-03-23 2021-03-23 Outpatient KAROLINA CLAROS [id number] Karolina 00:00:00 00:00:00 ANNABELLA calderón 2021-03-23 2021-03-23 Outpatient PATRICIA KAROLINA MOORE [id number] Karolina 00:00:00 00:00:00 CIARA calderón 2021-03-14 2021-03-14 Outpatient KAROLINA CLAROS [id number] Karolina 00:00:00 00:00:00 ANNABELLA Stuartol stephane 2021-03-13 2021-03-13 Lab [place] 1.2.840.1 [id number] [facility] 00:00:00 00:00:00 Miranda Ba 22034.1.1 ity of n 3.412.2.7 [place] .3.684941 .8 [facility] 2021-03-01 2021-03-01 Outpatient HARLAN KAROLINA MOORE [id number] Karolina 00:00:00 00:00:00 ANNABELLA calderón 2021-02-28 2021-02-28 Juvenal Cortes2.840.1 [id number] [facility] 20:00:00 20:05:00 Procedure Juwan Robison 78729.1.1 ity of 3.412.2.7 [place] .3.026978 .8 [facility] 2021-02-28 2021-02-28 Outpatient ERIC ARDON [facility] [id number] 09:05:06 09:05:06 JUWAN guidry 2021-02-20 2021-02-20 Travel 1.2.840.1 [id number] [facility] 00:00:00 00:00:00 78966.1.1 350.1.13.41 ity of 3.412.2.7 [place].698 [place] .3.076529 084.8 .8 [facility] 2021-02-09 2021-02-09 Outpatient SANGITAKINSEYMIRTABENITO KAROLINA MOORE [id number] Karolina 00:00:00 00:00:00 MD Justine LIN 2021-02-07 2021-02-07 Outpatient KAROLINA MOORE [id number] Karolina 09:50:00 09:50:00 Seybol d 2021-02-07 2021-02-07 Outpatient ESTRELLA PARMAR KAROLINA MOORE [id number] Karolina 00:00:00 00:00:00 Seybol d 2021-02-06 2021-02-06 Outpatient ESTRELLA PARMAR KAROLINA MOORE [id number] Karolina 00:00:00 00:00:00 Seybol d 2021-02-01 2021-02-01 Outpatient KAROLINA MOORE [id number] Karolina 12:40:00 12:40:00 Seybol d 2021-01-30 2021-01-30 Outpatient JESUS KAROLINA MOORE [id number] Karolina 00:00:00 00:00:00 EUGENIA Seybol d 2021-01-25 2021-01-25 Office JEAN Lee 1.2.840.114 [id number] Karolina 11:30:00 12:00:00 Visit Eugenia Becerra 350.1.13.13 Seybold 1.2.7.2.686 [id number] 2021-01-20 2021-01-20 Outpatient HARLAN KAROLINA MOORE [id number] Karolina 00:00:00 00:00:00 ANNABELLA Seybol d 2021-01-18 2021-01-18 Outpatient LAB90 KAROLINA MOORE [id number] Karolina 11:55:00 11:55:00 Seybol d 2021-01-18 2021-01-18 Office Myron Claros 1.2.840.114 [id number] Karolina 10:49:52 11:19:52 Visit Annabella Weaver 350.1.13.13 Se ybold 1.2.7.2.686 [id number] 2020-11-04 2020-11-04 Letter ROBERTA Kaiser 1.2.840.114 [id number] Univers 00:00:00 00:00:00 (Out) Yajaira AJ 350.1.13.10 [facility] 4.2.7.2.686 Gaurang as [id number] [place] [id number] Branch 2020-11-02 2020-11-02 Urgent Nasreen Ledezma [facility] 1.2.840.114 [id number] Univers 11:13:05 11:33:05 Care Randy Hayes [facility] 350.1.13.10 ity of [place] 4.2.7.2.686 Gaurang as Bebo?Blea [id number] [place] [place] [address] Medical Office Building 2020-11-02 2020-11-02 Outpatient R [facility] [id number] Univers 11:20:00 11:20:00 [id number] ity of [facility] 2020-11-02 2020-11-[address] [facility] [id number] Univers 11:20:00 11:20:00 RANDY georgettelina o f [facility] 2020-11-02 2020-11-02 Orders Doctor ROBERTA 1.2.840.114 [id number] Univers 00:00:00 00:00:00 Only Unassigned, JEAN MARIE 350.1.13.10 ity of [place] [facility] 4.2.7.2.686 Gaurang as [id number] [address] 2020-10-01 2020-10-02 Emergency [facility] [id number] Univers 22:30:00 01:56:00 Jose Pereira 350.1.13.10 i ty of [place] 4.2.7.2.[address] [facility] [id number] [address] 2020-07-19 2020-07-19 Emergency [facility] 1.2.776.518 [id number] Univers 16:54:00 19:37:00 Zen Pereira 350.1.13.10 i ty of [place] 4.2.7.2.686 [place] [facility] [id number] [address] 2020-07-19 2020-07-19 Orders Doctor ROBERTA 1.2.840.114 [id number] Univers 00:00:00 00:00:00 Only Unassigned, JEAN MARIE 350.1.13.10 ity of [place] [facility] 4.2.7.2.686 Gaurang as [id number] [address] 2020-06-07 2020-06-07 Outpatient LAB90 KAROLINA MOORE [id number] Karolina 10:00:00 10:00:00 Seybol d 2020-06-07 2020-06-07 Outpatient ESTRELLA PARMAR KAROLINA [id number] Karolina 08:30:00 08:30:00 Seybol d 2020-02-04 2020-02-05 Inpatient E NICOLE [facility] MED [id number] BL 11:00:00 16:58:00 [place] 2019-09-11 2019-09-11 Laboratory Lab, Adc Fam Pob I [facility] 1.2. 840.114 [id number] Univers 14:09:42 14:29:42 Only Leanna Richardsona [facility] 350.1.13.10 ity [facility] 4.2.7.2.686 Gaurang as [facility] [id number] Nh dical [facility] 044 [place] Office Building One 2019-09-11 2019-09-11 Outpatient R [facility] [id number] Univers 14:20:00 14:20:00 [id number] ity [facility] 2019-09-11 2019-09-11 Outpatient R [facility] [id number] Univers 14:20:00 14:20:00 [facility] 2019-07-29 2019-08-01 Out[facility] [id number] Univers 14:08:13 12:04:00 MACK [facility] 2019-03-28 2019-03-28 Emergency [facility] [id number] Univers 18:12:42 22:01:00 Jose Walsh [place] 350.1.13.10 i ty [place] [id number] [address] Results Test Description Test Time Test Comments Results Result Comments Source LS RAPID STREP ASSAY-LAB TEST 2021-05-22 14:39:14 Test Item Value Reference Range Interpretation Comme nts STREP GP A AG, IA (test code = Negative Negative Infection due to Strep A cannot 56758-6) be ruled-out be cause the antigen present in the sample may be below th e detection limit of the te st. Specimen has been sent for c onfirmation of negative. Lab Interpretation (test code = Normal 38392-9) Karolina [facility] WITH [id number] 15:41:00 Test Item Value Reference Range Interpretation [...] RDW-SD (test code = 42.5 fL 39.0-49.9 26261-2) RDW-CV (test code = 13.9 % 12.0-15.5 788-0) PLT (test code = See_Comment L [Automated 777-3) message] The sy stem which generated this result transmitted reference range : 166 - 358 10*3/ ?L. The reference r lenard was not used to interpret this result as normal/abnormal . MPV (test code = 10.0 fL 9.5-12.9 76024-7) NRBC/100 WBC (test See_Comment [Automat ed code = 4147703043) message] The system which generated this result transmitted reference range : 0.0 - 10.0 /100 WBCs. The refer ence range was not u sed to interpret th is result as normal/abnormal . NRBC x10^3 (test code See_Comment [Auto mated = 2587778789) message] The s ystem which generated this result transmitted reference range : 10*3/?L. The reference range was not used to interpret this result as normal/abnormal . SEG % (test code = 34 % 33-76 05353-3) BAND % (test code = 18 % 0-1 H 90512-8) META % (test code = 4 % See_Comment H [Automa garo 26143-9) message] The sy stem which generated this result transmitted reference range : <=0. The refere nce range was not u sed to interpret th is result as normal/abnormal . MYELO % (test code = 3 % See_Comment H [Autom ated 10554-8) message] The sy stem which generated this result transmitted reference range : <=0. The refere nce range was not u sed to interpret th is result as normal/abnormal . LYMPH % (test code = 30 % 14-54 54904-6) MONO % (test code = 8 % 0-4 H 36146-9) EOS % (test code = 3 % 0-3 39390-7) ANC (test code = 1.53 10*3/uL 1.88-7.09 [...] . Lab Interpretation Abnormal (test code = 70093-8) [facility] METABOLIC PANEL (NA, K, CL, CO2, GLUCOSE, BUN, CREATININE, CA)2021-05-21 12:04:23 Test Item Value Reference Range Interpretation Comments NA (test code = 143 mmol/L 135-145 6053569435) K (test code = 3.8 mmol/L 3.5-5.0 2232386022) CL (test code = 113 mmol/L 98-108 H 7558369429) CO2 TOTAL (test code = 22 mmol/L 23-31 L 3137670946) AGAP (test code = 2-16 4664705930) BUN (test code = <2 7-23 L 4647615968) GLUCOSE (test code = 114 mg/dL 70-110 H 1935076239) CREATININE (test code = 0.43 mg/dL 0.50-1.04 L 5620361668) CALCIUM (test code = 8.4 mg/dL 8.6-10.6 L 3844067950) eGFR (test code = mL/min/1.73m2 3286236450) SCOTT (test code = SCOTT) Association of [...] tests). Lab Interpretation Abnormal (test code = 14374-5) [facility] (NA, K, CL, CO2, GLUCOSE, BUN, CREATININE, CA)2021-05-20 12:32:44 Test Item Value Reference Range Interpretation Comments NA (test code = 137 mmol/L 135-145 9281405507) K (test code = 3.3 mmol/L 3.5-5.0 L 4941961054) CL (test code = 105 mmol/L 98-108 6247463695) CO2 TOTAL (test code = 23 mmol/L 23-31 9469965113) AGAP (test code = 2-16 8000472085) BUN (test code = <2 7-23 L 6467553732) GLUCOSE (test code = 98 mg/dL 70-110 1878104772) CREATININE (test code = 0.40 mg/dL 0.50-1.04 L 1035359830) CALCIUM (test code = 7.8 mg/dL 8.6-10.6 L 2792249635) eGFR (test code = mL/min/1.73m2 7541477749) SCOTT (test code = SCOTT) Association of [...] tests). Lab Interpretation Abnormal (test code = 86834-5) [facility] WITH [id number] 12:03:45 Test Item Value Reference Range Interpretation Comments WBC (test code = See_Comment LL [Automated 3990-2) message] The sy stem which generated this [...] RDW-SD (test code = 39.9 fL 39.0-49.9 72260-4) RDW-CV (test code = 12.9 % 12.0-15.5 788-0) PLT (test code = See_Comment L [Automated 777-3) message] The sy stem which generated this result transmitted reference range : 166 - 358 10*3/ ?L. The reference r lenard was not used to interpret this result as normal/abnormal . MPV (test code = 10.0 fL 9.5-12.9 32694-1) IPF % (test code = 2.1 % 1.3-7.7 Platelet count 5845162906) measured by fluorescence method. NRBC/100 WBC (test See_Comment [Automat ed code = 8850671001) message] The system which generated this result transmitted reference range : 0.0 - 10.0 /100 WBCs. The refer ence range was not u sed to interpret th is result as normal/abnormal . NRBC x10^3 (test code See_Comment [Auto mated = 8297499269) message] The s ystem which generated this result transmitted reference range : 10*3/?L. The reference range was not used to interpret this result as normal/abnormal . GRAN MAT (NEUT) % 29.1 % (test code = 770-8) IMM GRAN % (test code 14.20 % = 1384752936) LYMPH % (test code = 29.2 % 736-9) MONO % (test code = 20.8 % 5905-5) EOS % (test code = 4.2 % 713-8) BASO % (test code = 2.5 % 706-2) GRAN MAT x10^3(ANC) 0.35 10*3/uL 1.88-7.09 L (test code = 3086965877) IMM GRAN x10^3 (test 0.17 10*3/uL 0.00-0.06 H code = 3331667434) LYMPH x10^3 (test code 0.35 10*3/uL 1.32-3.29 L = 731-0) MONO x10^3 (test code 0.25 10*3/uL 0.33-0.92 L = 742-7) EOS x10^3 (test code = 0.05 10*3/uL 0.03-0.39 711-2) BASO x10^3 (test code 0.03 10*3/uL 0.01-0.07 = 704-7) Lab Interpretation Abnormal (test code = 71688-2) [facility] with Vjxqaznyyclq1270-22-25 11:04:29 Test Item Value Reference Range Interpretation [...] RDW-SD (test code = 41.0 fL 39.0-49.9 37429-1) RDW-CV (test code = 13.2 % 12.0-15.5 788-0) PLT (test code = See_Comment L [Automated 777-3) message] The sy stem which generated this result transmitted reference range : 166 - 358 10*3/ ?L. The reference r elnard was not used to interpret this result as normal/abnormal . MPV (test code = 10.4 fL 9.5-12.9 89137-7) IPF % (test code = 3.1 % 1.3-7.7 Platelet count [id number]) measured by fluorescence method. NRBC/100 WBC (test See_Comment [Automat ed code = 4314507137) message] The system which generated this result transmitted reference range : 0.0 - 10.0 /100 WBCs. The refer ence range was not u sed to interpret th is result as normal/abnormal . NRBC x10^3 (test code See_Comment [Auto mated = 6131422240) message] The s ystem which generated this result transmitted reference range : 10*3/?L. The reference range was not used to interpret this result as normal/abnormal . GRAN MAT (NEUT) % 20.7 % (test code = 770-8) IMM GRAN % (test code 2.10 % = 5126523458) LYMPH % (test code = 41.7 % 736-9) MONO % (test code = 25.0 % 5905-5) EOS % (test code = 6.3 % 713-8) BASO % (test code = 4.2 % 706-2) GRAN MAT x10^3(ANC) 0.10 10*3/uL 1.88-7.09 L (test code = 6650048889) IMM GRAN x10^3 (test <0.03 0.00-0.06 code = 4816332123) LYMPH x10^3 (test code 0.20 10*3/uL 1.32-3.29 L = 731-0) MONO x10^3 (test code 0.12 10*3/uL 0.33-0.92 L = 742-7) EOS x10^3 (test code = 0.03 10*3/uL 0.03-0.39 711-2) BASO x10^3 (test code <0.03 0.01-0.07 = 704-7) BANDS (test code = Increased A 2579069817) DOHLE BODIES (test Present A code = 7792-5) PLT ESTIMATE (test Decreased Normal A code = 9317-9) Lab Interpretation Abnormal (test code = 62498-4) [facility] Metabolic Panel (NA, K, CL, CO2, GLUCOSE, BUN, CREATININE, CA)2021-05-19 09:30:28 Test Item Value Reference Range Interpretation Comments NA (test code = 138 mmol/L 135-145 1649664954) K (test code = 3.4 mmol/L 3.5-5.0 L 2689507088) CL (test code = 102 mmol/L 98-108 0626607724) CO2 TOTAL (test code = 27 mmol/L 23-31 7584031575) AGAP (test code = 2-16 0579587061) BUN (test code = 3 mg/dL 7-23 L 7917866327) GLUCOSE (test code = 96 mg/dL 70-110 8861223539) CREATININE (test code = 0.43 mg/dL 0.50-1.04 L 2351707254) CALCIUM (test code = 8.0 mg/dL 8.6-10.6 L 6391578589) eGFR (test code = mL/min/1.73m2 8481452590) SCOTT (test code = SCOTT) Association of [...] tests). Lab Interpretation Abnormal (test code = 26034-4) [facility] WITH [id number] 19:24:45 Test Item Value Reference Range Interpretation [...] RDW-SD (test code = 39.0 fL 39.0-49.9 18578-6) RDW-CV (test code = 13.0 % 12.0-15.5 788-0) PLT (test code = See_Comment L [Automated 777-3) message] The sy stem which generated this result transmitted reference range : 166 - 358 10*3/ ?L. The reference r lenard was not used to interpret this result as normal/abnormal . MPV (test code = 9.7 fL 9.5-12.9 34814-1) IPF % (test code = 2.3 % 1.3-7.7 Platelet count [id number]) measured by fluorescence method. NRBC/100 WBC (test See_Comment [Automat ed code = 5350301337) message] The system which generated this result transmitted reference range : 0.0 - 10.0 /100 WBCs. The refer ence range was not u sed to interpret th is result as normal/abnormal . NRBC x10^3 (test code <0.01 See_Comment [Auto mated = 7246177019) message] The s ystem which generated this result transmitted reference range : 10*3/?L. The reference range was not used to interpret this result as normal/abnormal . GRAN MAT (NEUT) % 37.9 % (test code = 770-8) IMM GRAN % (test code 3.00 % = 4492925064) LYMPH % (test code = 36.4 % 736-9) MONO % (test code = 15.2 % 5905-5) EOS % (test code = 4.5 % 713-8) BASO % (test code = 3.0 % 706-2) GRAN MAT x10^3(ANC) 0.25 10*3/uL 1.88-7.09 L (test code = 6856000682) IMM GRAN x10^3 (test <0.03 0.00-0.06 code = 7851839336) LYMPH x10^3 (test code 0.24 10*3/uL 1.32-3.29 L = 731-0) MONO x10^3 (test code 0.10 10*3/uL 0.33-0.92 L = 742-7) EOS x10^3 (test code = 0.03 10*3/uL 0.03-0.39 711-2) BASO x10^3 (test code <0.03 0.01-0.07 = 704-7) BANDS (test code = Increased A 1606043789) DOHLE BODIES (test Present A code = 7792-5) Lab Interpretation Abnormal (test code = 67289-4) [facility]18 18:49:49 Test Item Value Reference Range Interpretation Comments NA (test code = 135 mmol/L 135-145 7942264893) K (test code = 3.8 mmol/L 3.5-5.0 8196802470) CL (test code = 97 mmol/L 98-108 L 0646295577) CO2 TOTAL (test code = 30 mmol/L 23-31 3888088320) AGAP (test code = 2-16 4424870364) BUN (test code = 3 mg/dL 7-23 L 3120662681) GLUCOSE (test code = 102 mg/dL 70-110 1711514104) CREATININE (test code = 0.41 mg/dL 0.50-1.04 L 9406237664) TOTAL BILI (test code = 0.8 mg/dL 0.1-1.4 2580615200) CALCIUM (test code = 8.7 mg/dL 8.6-10.6 2026766563) T PROTEIN (test code = 7.2 g/dL 6.3-8.2 8534343004) ALBUMIN (test code = 4.4 g/dL 3.5-5.0 8918219057) ALK PHOS (test code = 133 U/L 34-122 H 1778025691) ALTv (test code = 26 U/L 5-35 1742-6) AST(SGOT) (test code = 26 U/L 13-40 8938373487) eGFR (test code = mL/min/1.73m2 8242472232) SCOTT (test code = SCOTT) Association of [...] tests). Lab Interpretation Abnormal (test code = 31048-7) [facility] [id number] 18:44:46 Test Item Value Reference Range Interpretation Comments APTT Patient (test See_Comment [Automat ed code = 3173-2) message] The system which generated this result transmitted reference range : 23 - 38 Seconds . The reference range was not used to interpr et this result as normal/abnormal . SCOTT (test code = SCOTT) The [facility] patient population mean normal value for aPTT is 30 seconds. Lab Interpretation Normal (test code = 23124-3) [facility] / [id number] 18:42:45 Test Item Value Reference Range Interpretation Comments PROTIME PATIENT (test See_Comment [Auto mated message] code = 5964-2) The system wh ich generated this result transmitted ref erence range: 12.0 - 1 4.7 Seconds. The re ference range was not u sed to interpret this result as normal/abnor mal. INR (test code = 6301-6) Nor mal INR <1.1; Warfarin Therap eutic range 2.0 to 3. 0 or 2.5 to 3.5, dep ending upon the indica tions. Lab Interpretation (test Normal code = 77774-8) [facility] Outside Bvaaiurxrivqqp0561-08-87 14:07:55 Test Item Value Reference Range Interpretation Comments Materials Received (test a0pedOOuWSXjpNMoIgVr code = 9973) XBJdLASxf7ctVAThsNPw ZzEwMzNcZnRuYmpcdWMx CBHlEpRjz1jgb647kCOn d7krHHZlLfT8gXLnCQKe zZGkG041EQYqUZjpi7yw b6NqVDUnbNPjt0X8ZHDF mlbtaYw4sWnbR80pa7Q8 IvnnS7laOEHtGGMhX0Ed KU9hKLDrNnl4TTT9JKL8 BWUuGNViV9YqVK7dCFVf vEMwZIe9u4rebNgmGUZn FER5n8mjNIgkzdNyXH1e kh1fbIv3i7gwxySaVPRy QFOutGPVDEYhU4FlcFwg Iv0wlUu1fOvfVvytEFQ5 Rsc2ZC9mgw61fxk0bDca YUBhewefJvI8STlvJIOm fnqaJCc2OOwcEDNhfQwm MFxtYXJncjcyMFxtYXJn fSE4DLAjcJZaP9AcTZXr BTioHDEhqnt2TbLxCn0c bGXijFguDRayd2nul1bt tNEoOny6IHSvKsVoAjgu PAunl2Vhj2mnQTMcai0t ULA0rQAeuCjss0L7eHDi NIIgbEObgbZeVSWtxk21 cKMkbDCkcSVejg0ictPx lPGhcDInDFI0dRFtftNo CASbmJDrFDAbHJ0woKHi JHMxtM2udcxoWZXeQeCp davkWDTwdFtuoeMcBw7a vXdrUHI5LQotJ2auaQ0p DkS8UTftL4zkaH3jQWm1 EAwvsKN5THPktA8qIO7l zseox5gvZqBnYJ0zvgsz j3pwUnFnVY0tnst1p1en ZUC6YBjmVMShSgF5jnO0 NDBcaGVhZGVyeTcyMFxm y314SGY6CiYjXCLad9Lt W9UyoVzpM29esVdyN52q MHKsyWsswG7xcUsyhZ4k UkQmJtVcPSu7kk16XGj5 leyqgZkoUJz8ryMcUISg YID2YKDxkHIkBEHqW8r3 trLxTNMbDSA3TUQknXZa EWWrR1c6yiGyVWB8ZIl2 cnBhZGRmdDNcdHJwYWRk YjBcdHJwYWRkZmIzXHRy dVKowRKhjRJflW9wsZnc AHLizTRtoA8uCTR9JGJc cmgzMjBcdHJoZHJcbHRy cj71MREwzqXfiDMkvOlt lPNjYKM4VCEdWHJsBRYt HHS9FHQrKjQgcjBsWHlb bGJyZHJiXGJyZHJzXGJy UEP9YATmKfTgejBqAWxz bGJyZHJsXGJyZHJzXGJy VGB5ZUEnInQeyqSrUKyl bGJyZHJyXGJyZHJzXGJy NTD9ZUBmVqWlauVpPSwo bHBhZHQxMFxjbHBhZGZ0 R4mbnWMvUMWaEJzioRLe ETHlJ7zuiQEcHCjrNUYn cGFkZmwzXGNscGFkYjBc S0vpYLJwJePtE2FzgQx4 MDAwXGNsdmVydGFsdFxj wBNsUNV9EENdIGIyQJDb AOP1IXCfMjYbnxEwIJca bGJyZHJiXGJyZHJzXGJy FWY3MDUsGuXcnqRwCBia bGJyZHJsXGJyZHJzXGJy HFG0LZZxYdEpoaNaCYbw bGJyZHJyXGJyZHJzXGJy BAB1JRHtRjBsftNlNKyt bHBhZHQxMFxjbHBhZGZ0 S2qzqBMeZBFbRYmvaIIz MHMqU2ifoQEoJDieKEAs cGFkZmwzXGNscGFkYjBc I2mrQINbVmKxM3VbsCm8 NjAwXGNsdmVydGFsdFxj bZOoCCK0DBZzORSoUTMy QZX4IKRvTnXdikVtNAve bGJyZHJiXGJyZHJzXGJy VYK1QTYtBrPrenDaFZyk bGJyZHJsXGJyZHJzXGJy PVC2QTFkZlCjflBfIVvo bGJyZHJyXGJyZHJzXGJy OYW5CUGzWlNeoyXaCBiz bHBhZHQxMFxjbHBhZGZ0 I9biqDBoSOLuBOrixFXt EBIrS0qkeVLjTXbxYWLp cGFkZmwzXGNscGFkYjBc G0omWECgMcLbM3KxmSv6 TvMkEZCeicMwaN27Bmtf l5OrQXZcAMX8VVcrMMut bFxwbGFpblxmMVxmczIw DHaumliuSKDfWQgbE5ue TjClYJAubCwfIZbje7St XGYxXGNmMlxmczIwXGIg VYBtTOJxhQ7kCfjrT5Pg dO7iYBtuOdflE3nzDMFe q4XvuE2pODmjmOYglyoz MVxmczIwXGxhbmcxMDMz UOamW6vvGfPpXZIdkZun MLxov4UfQZMrOLBcVblh oeRyXPa4xpMoSSBvhFvb jMWpMWpglzYlwTjsz9Ka uyMlmDroYIArMHs8iyIu avjjgAo9mBAsyNftYOXe bFgpkQ2dIhQpYfLsBJib bGFpblxmMVxmczIwXGxh sbuwYRMiCLkvY5hnZwDk VHTdxMobFUevo5BaCGRt UPAqSzzihlUjUKFeU08d bGVjdGVkXHBsYWluXGYx XGZzMjBcbGFuZzEwMzNc aGljaFxmMVxkYmNoXGYx LLefK6omZpLsP7ZaVBKv AxThfPSaF3fvA5BusYfs YXJkXGludGJsXHNzcGFy NGM4yLOlkfHtkMZgiUKe AJZlXJemMXE7gVNyewdw nEUalfwpNVxisrJ8JIDc YWluXGYxXGZzMjBcbGFu ZzEwMzNcaGljaFxmMVxk OjSfZZUuWZceW6fcZlUc O7MqKOXcXyRbJcIFPXYo aXZlZFxwbGFpblxmMVxm czIwXGxhbmcxMDMzXGhp E0bkGuGxBVEslIvoSApi p8OvVRZlCTBkQceqcbZh RZw4mmAyFGOtlQuprV06 Sjxrhf81WURhz1frLVSq J6YbrHLnDFLeoRWmKHct MDhcdHJwYWRkZmwzXHRy cGFkZHIxMDhcdHJwYWRk ZnIzXHRycGFkZHQwXHRy cCMoMIE0Z1v7cuKiKCJz HJv7yeHmPHBqTqGtfAQy TEM5HJc0CpgjrtM8cURm G1g0RpezaiMzJWwwqJDg jb89ERTsabSvzMHwrRyg nNAxAVV3QYXwWHFmDNGa UDL1WHCpYiKhnnPzANno bGJyZHJiXGJyZHJzXGJy ERT0FSZsJoMsnwRrFQtt bGJyZHJsXGJyZHJzXGJy DAA9KLHwTvXseaKjJIyk bGJyZHJyXGJyZHJzXGJy AXQ1TTWkYxVhwyEtIOif bHBhZHQxMFxjbHBhZGZ0 V5otqJLsWCTnBFyshAXa AMOsU7fsaMOqILgbSIGc cGFkZmwzXGNscGFkYjBc O8gtJDIxGuOnM1PmuXv9 MDAwXGNsdmVydGFsdFxj rZAbHOR7NXTjKURuJANd FEW1PRQjMxHgetQnXXyv bGJyZHJiXGJyZHJzXGJy GCJ5OWDnZzIcygFgVJcb bGJyZHJsXGJyZHJzXGJy GBK3YWWlCePwpaIdWSel bGJyZHJyXGJyZHJzXGJy DOY1ZTLhZvXbwxJiWTia bHBhZHQxMFxjbHBhZGZ0 V1ykoAWzQSOhEMtzhIAm WJUwQ1ttgPXfVSfwLUMi cGFkZmwzXGNscGFkYjBc J7jkNXBoVeUyN8AkdLa0 NjAwXGNsdmVydGFsdFxj vXOwQIR3ONJsHBQrIEOp BAL5AVDmFgMgznSkKMcz bGJyZHJiXGJyZHJzXGJy ZZY4DFUuGaUndgAyFKvv bGJyZHJsXGJyZHJzXGJy CHJ8KPAmMjDrhgZhAMys bGJyZHJyXGJyZHJzXGJy YCU1RVKcDbCahfOrIDqk bHBhZHQxMFxjbHBhZGZ0 E9zavGQlJOTkSIsttJRc GIJhG0goiQKvLNdnIDZv cGFkZmwzXGNscGFkYjBc P8xzFKTmLeRsV9VymEm4 EzYvECMfnzCyrD35Dbzy q7EbCGCmAHQ0SFdtDRia bFxwbGFpblxmMFxmczI0 XHBsYWluXGYxXGZzMjBc bGFuZzEwMzNcaGljaFxm GXahPtXiDNXzYBptO3wk PhBlF3GfVXPcYfZtEW0q OjY0IGEjYWIgXFRtKQTG AvrnKYATSJ1HW9MjXWYc VVNTXHBsYWluXGYxXGZz MjBcbGFuZzEwMzNcaGlj aFxmMVxkYmNoXGYxXGxv O8lvBlGnL6MtQYPbRcMy jYQfY4gqB2RxiZprXSGe XGludGJsXHNzcGFyYWF1 yUKgbrIyhVszdKztbW2l ZjBcZnMyNFxwbGFpblxm MVxmczIwXGxhbmcxMDMz XHyzI4tlCvRbNKCczDom XNxqv8LdIEWlRTUsDvsb czIwIDEyLzEzLzIwMjFc aEulmF4gLwPeSiVqZPzt DU1eSASoR6eefSOsVMJx MVOuS8tjXiEarE4hnHcv MVxjZjJcZnMyMFxsdHJj hZhdAIpjJTEcqtIjrB49 Shgws4NuTQZvIUT2SCwy MFxxbFxwbGFpblxmMFxm uhL3BZLsYPlaYUNmQBGu MjBcbGFuZzEwMzNcaGlj aFxmMVxkYmNoXGYxXGxv D7uhQxCzR6UcNYNcEiQc TZ9iZF6mEBQdXUZgVWiz XGYxXGZzMjBcbGFuZzEw MzNcaGljaFxmMVxkYmNo NWSoVFkoT7yxLcEgF5Hn TOQxVjZmlLOkP7ktS2Zl tBsuapVjkVtrs2fasYLa DObgl8OnzkGfcVvoSENe XHFsXHBsYWluXGYwXGZz KwQpxYexvA0lKqDgWySz PLqjOY1rHEPqB6vtpSTt AQDiYBZyQ0xvYaWumF9s aFxmMVxmczIwXHBhcn0= Diagnosis (test code = y1yykVMoPKMwbJG5FtTb 34) NGPip2eqc2WeuFUwvSSl GJdotSGzjoWudz63gHS9 xK74ZX8zZHXuBmF8DWTb gkA9Pld4JZVlFDQscYKv A702j7lgm3xaihLekSQ4 DFEeLOOdX3OuJD8zHTIh tJUfX81rvJOnBBQ9MFSz JXSmmWRyGEPcKVQ2DYRl fKXiY4ztQTGtOW0vbuon EUdrNAfvYUWtoTM9FKTc vZIfI1WfUTEtEWbfIYQd orl9NpTeJz8yfYWiwXec MFxwYXJkXHBsYWluXGZz DmJiZ2FpBVq1mLQyIB2u ZGUgKGxlZnQgdXBwZXIg nwLjeyovDLX7B6lpoX1s LDvbRrrayFA6NkxzBGHj N9YdRWJjptyhnYauQWat kY74PkUqAAmFQeXTGNEG QVJHRSBCLUNFTEwgTFlN UEhPTUEgKDcwLTgwJSkg YA0HJXXHRMrBA1QPVRXt TFlNUEhPTUEsIEdSQURF WYSYKWzoPO5dHDSdOPCj ducjYWQqAHygPS1rf8Rz VNGwFMwmiaTiFYwocs2x bmFsIGNlbnRlciBCLWNl nSxuzW1mmC0htSixgc51 dKUzGQDjPOIHgL71LjHl cyB+OTAtOTUlIFxwYXJc cGFyZFxwYXJ9 Comment (test code = e2tzyRRcIYDxfNR4OjPn 9835) ESGje6lwm4DuhOQuzGIp RQlmdBZwvyLwnn65yOH1 aZ99VB7pDDBbBkS3GDKk aiQ7Hho0YNNrWIRobUSy G808v7tfm5aklhGtsUQ0 rUgpUVUhdefmNrA8HIop WJNlirbpKUv8IUveFTLa kSV2CTJftSNnP4UyOGOq BZ8jjur8YDU5MJupIURt RcH8PEThbNOcIHAlpVaf PXmis996LAQ7TnGwOFZf ckLeuAocxV1hEbAbFMDV wHE1s1emH3pfYBMqQ5Tl g93hLKLct7zdpIdxyCvq kr3aEZKkbhB8kGobyEH1 bNAkABPudFk3DQS0gLYz DZzaRFHldV3pcEIxe14a yDD6AVf9ROWbxRtyN4Hp AQY3FHb8lEDgg71cSzGi QA5uyYJbCaPyPZLrLNMu ZlM2wAYmbxBngEdxv86r aGFzIGEgZGlmZnVzZSBw KHS7UONeOLOhnRFqnRgw icWpMPZfZVNdc49nXr0e bGljdWxhciBhcmVhcyAo LhHzQeZlDU9oDu62uYV2 aGUgZGlmZnVzZSBhbmQg Fy4vcVakaZmwbmOsxjBp xhLjwcTkE02swV9cTYIb c5OtkOFrV5EokzGxcQwc l6PhTdQuHKatdrL9gXAp HJVkRRP6wmWkQCGoroFi s2CeTAW4eb4fEMSpgJYa lU0pqP94cQBtR2SnwBLz LHXvWJBfMKOnhnSoBB1y KQ6heA85tMDlMsspkHHx vkFapyQoYNQcuVe5JHwk NQ03jFWxNCBhCGWqQKOm aWZmdXNlIGFyZWFzIHNo o7dmLKWjaJVwmfhyt2u8 FMAliCAzof6cJBpasjHz bGluZSBXZSBoYXZlIHJl rmqrw6EbMEhilULbl1vf h2ErZ5csjNbfZXxqg8N3 EPaktmZrIOTdg1VdGZQh CZrfRDwaQJIlDG3nEASo qTShc0OiT5vpFR1zVFYm MHRzIO8gdAHrdDlaQUOr iUgsZGZcTHPru1AkkUq5 XABsx7HgY5OzHMvdT2Sq OKuoG9W9WtOyo3Shzplv DTKUXPqtlqBzr5ukBCax QkNMXGVuZGFzaCAyIChz aKYlsvexRSUTB0rdTW1m ANMeFSMhBQ7hQV3QUGDy IKQRWHuqYK9wNPUbVCXp FLegiPv4USKld1FeZ6Kx LCBDRDUsIENEMjEsIENE TqFvBUWjYTKxeQWoaK9a HQJzHYStLUGlkuAmDe4o yRIfdARgtCGrOkQir2Aw K4ThNDUklB66jlDtw63q ZKDdgZzxC4MqICIoQTOc ZHJpdGljIGNlbGwgbmV0 o73jp8Uuh3g0rHfjOHFp PETyi0keuVG6lITeUOUr eDPdnwNvfEEcLuE8qTUs lwNvxJrey30pLFMwXOPn klPqWk7noXShgHWirZIc PcNbe2LbG2qgFjkvw9py p2SnTXMlgo1jvFYzyfG9 eZ1eWSEixMCuw9XkRHJq OTUlIGluIHRoZSBkaWZm dXNlIGFyZWFzIGFuZCBp apZgg71wJU3sADAbPTEu g4klfIW4wKHzPLObBUWo LiAgXHBhclxwYXIgQWNj j9KvaO1xSTDfYFZwNJQh jARrjVP2HSZltcTvu7J4 RMNbtiQwsOY4FYo7McWm OAp0RGLba75aTF8rmBjm cBVkg6pyh3UhBXEiNKRm dDgiFR5kl3MxORTrPJhk DV7yV2V8pWEwCJVxmvLL lPV1QSybTGEzKTIfuTBV XKQtWKFcuoOzROElE56q UIMgDh9LREuFSuWLYP6c VGhpcyBzbGlkZSBoYXMg gr99ENWnDP6nk4AwwQK6 kkJ3lgDlq2VhmyZ8lEE4 NdejmW0iLFmxgsTfOVLz k0JnkO5bSGNxBWJzZEKg fCEjrDW2KYCjerYlr4Q9 XPFxsC47HLF4pF5mMYGp pFUraF45zv3leXRca8B6 mDxsFCF2nAYyCULyo5Yh ONIdUUQtj0SrUOZjc00j DZPcNTllQKT2v6IqgtUa u63nr4FfrZkgnzMnuBKz dG3zgp6wRSxjZGXai3Fn mINdi6lhj8GhCGSeZRWw ujCwueJwUv3qBXshJBKi tJHgLZRpq39frU3zyBSo bvGmEj0rDT5jzf67dEMt KfAkES6vGDDkRN3iSBOO AWHjPS1nJWNqtTHra6Nf qKmiCbRbAwEpz4CdsDzd IOD6DN68dgGwezGsbNqk EE8jBMccDMipcqUnhr76 RYSlEQ9yk3TfwEOtOTAl lDKiKFMrUBRvg4huM8f8 d17puID7NQOowI3unCVz a7UqrhK4rPW3UifzaD2a VFbifnXrSWPcc2ElhV2l IHRvIHRoZSBzdWJtaXR0 STQnzeYur1K0RIZvhTJg qgPcC8UxI1IjgF9vq6s3 rJYtbTBnzJZajfV6yJ9b IChGSVNIKSBzdHVkaWVz RFygifRji1XvNPDeDRA4 deTxs3Zfe4ToNx9aWTip NI9VT6idHTSoDBsoMSVP TDJcaTAgIGFuZCBcaSBC V4g1JFczHHJzDDQjkpUw D1UpYS97wu6xX1Jpy2ul aOZjPOG6FHH3UWGaY35n jLByPiP1zHJ4KZKyaL7w aN7wASZvbgtdKGCfqOFr FJReY4kvtHJoxTTByMSq E9FwKj60DQdwETQDUYSv clxwYXJ9 Disclaimer (test code = i6pkbOSiMIXjqDUbGhEy 9844) POQuKYZao5dvEJMljDIl ZzEwMzNcZnRuYmpcdWMx AFHmEiIyu7mhg616jZWu c5snTHSbTuX1mXGdDONn oDGbT539AZLgHXsmx4xq t9KcQQPzxHIxl1B1HFBZ wtuolUa1gKwcN67mt6F2 NblmQ4zcYGFzFOZyS5Vr EE3sAQReDip0CUK6LPG8 BAVtAIThB8AxVR0gFCYe zSIqDEz8u8iviScqPVGt GHX3p6pgXFbeljJlSM6e pn8mxVb5d4hqhdAgPPXr LVCiwHJVQIShZ5FzxKhd Xv6zuAn8bZtkHkorTSZ4 Uld6QU7omf72wxv0yFyb YGBglgczCsC3XFuoXZZl tcffGNc8PCjoJLZuzCH4 JHMmpBFoU5OpXSNtMX6a amk9PIE7LAvqYRKbIiD9 NDBcaGVhZGVyeTcyMFxm g203NHP1EmSnXV5pU5Nt v5G9mW8diSPtUEHuhDBn EbZxIOZngn8ynRJoDWxp h6VfOKH6oiL3lTTxpQOl OTOnQL50Ltjmu9TxLvfp RCX6TCCuqfOeb2Sji1dz VuKqrfQeV8dbG8TlPSVh CGPfQKSmXmWhiySuz4Ug q3PanJCsnYl3z2wpVPPd GRDobWbeu4lyMFM8ZCVj V3J4vDShc2xyEMnxWLRm iCQ9dxI8CUUvtXOkL8Ow mP6sXGUpZT9ekyu8u8ep EOR6AEeyJVPtZlN3zuN2 NDBcaGVhZGVyeTcyMFxm r889SDH0WgPcFEQnh7Os B1ItqDxuL23zlFdzS00b HHErkUdbmE9euAhofJ1n ZjBcZnMyNFxxbFxwbGFp rccaJRdmhiY9XBgdmyub NVWgLEovH9rxMfXqBFNe sJjzFFyvx2UcITNqNVOy RvrpljO5SYKDh64oEEIg b2WeCMBccA5boCOrGIug hwSjoWO2CNzghaJjHkKl hwEoLJXvbR6fYDNlBW2f QBTpvoDbvo5vcfCbVZOo FCZrY7TwvdecbVwhhxKk CSDhoy8uykRrQDN7RZDS FY1EZRYpIWHrb91wEVNw wSawvM8dcGVakrTkZQMq n8KfqV9euDHHYQEaQ0sc NI2wDDwym6RolFNipAJq nCI0WGGsl2LpBjEuxtSg uLHugJDgA6SgvRnfT9pt JVEvXYUljrUktRDsz9Vd WEDjvBN9iFVsTC2AFgWA y28pDFLeJOIRxdRvWPBq uBoyaPO4yoO0fD1xVeCV ZiBhcHBsaWNhYmxlLCBj h355du5nesW0MTPuVXPo crkrs0PcKUVrNOAsiK84 ABVeCFByrl9jbwqeqTCe jgYhH8Rjyfc3dC8gGRTb YWluXGYxXGZzMjJcbGFu ZzEwMzNcaGljaFxmMVxk YuAvJNPxSGpnO3jcQgNd ZnMyMlxwYXJ9 [facility] METABOLIC PANEL ([id number]) 2020-10-02 04:58:30 Test Item Value Reference Range Interpretation Comments NA (test code = 138 mmol/L 135-145 0207390638) K (test code = 3.9 mmol/L 3.5-5.0 5289265318) CL (test code = 102 mmol/L 98-108 9488435195) CO2 TOTAL (test code = 25 mmol/L 23-31 6668579197) AGAP (test code = 2-16 4338284339) BUN (test code = 20 mg/dL 7-23 5034063745) GLUCOSE (test code = 96 mg/dL 70-110 1708646226) CREATININE (test code = 0.56 mg/dL 0.50-1.04 5183221991) TOTAL BILI (test code = 0.8 mg/dL 0.1-1.8 6585341393) CALCIUM (test code = 10.2 mg/dL 8.6-10.6 1180586211) T PROTEIN (test code = 8.8 g/dL 6.3-8.2 H 9873273239) ALBUMIN (test code = 4.7 g/dL 3.5-5.0 7562370375) ALK PHOS (test code = 99 U/L 34-122 7058308344) ALTv (test code = 38 U/L 5-35 H 1742-6) AST(SGOT) (test code = 31 U/L 13-40 9499116694) eGFR (test code = mL/min/1.73m2 4257971805) SCOTT (test code = SCOTT) Association of [...] tests). Lab Interpretation Abnormal (test code = 73748-8) [facility] Test Item Value Reference Range Interpretation Comments LIPASE (test code = 9084259385) 243 U/L 0-220 H Lab Interpretation (test code = Abnormal 24610-1) [facility]44 Test Item Value Reference Range Interpretation Comments APPEARANCE (test code = Clear Clear 9763958295) COLOR (test code = Yellow Yellow 6262994690) PH (test code = 4.8-8.0 8469709756) SP GRAVITY (test code = 1.003-1.030 4854933213) GLU U QUAL (test code = Normal Normal 1790464659) BLOOD (test code = Negative Negative 7123861115) KETONES (test code = Negative Negative 2174062828) PROTEIN (test code = Negative Negative 2887-8) UROBILIN (test code = Normal Normal 9693464051) BILIRUBIN (test code = Negative Negative 8560625009) NITRITE (test code = Negative Negative 3016417134) LEUK BAILEY (test code = Negative Negative 8693531660) RBC/HPF (test code = See_Comment [Autom ated message] 9330792489) The system [employer] generated this result transmitted ref erence range: 0 - 3 HP F. The reference range was not used to int erpret this result as normal/abnormal . WBC/HPF (test code = See_Comment [Autom ated message] 7992237097) The system [employer] h generated this result transmitted ref erence range: 0 - 5 HP F. The reference range was not used to int erpret this result as normal/abnormal . BACTERIA (test code = Negative Negative 5545025739) MUCOUS (test code = Slight Negative LPF A 3820525112) SQ EPITH (test code = HPF 4856641037) Lab Interpretation (test Abnormal code = 77079-2) [facility] WITH [id number] 04:45:31 Test Item Value Reference Range Interpretation [...] (test code = 38.7 fL 39.0-49.9 L 81684-8) RDW-CV (test code = 12.9 % 12.0-15.5 788-0) PLT (test code = See_Comment [Automated 777-3) message] The sy stem which generated this result transmitted reference range : 166 - 358 10*3/ ?L. The reference r lenard was not used to interpret this result as normal/abnormal . MPV (test code = 9.4 fL 9.5-12.9 L 58911-8) NRBC/100 WBC (test See_Comment [Automat ed code = 5050440394) message] The system which generated this result transmitted reference range : 0.0 - 10.0 /100 WBCs. The refer ence range was not u sed to interpret th is result as normal/abnormal . NRBC x10^3 (test code <0.01 See_Comment [Auto mated = 2342786125) message] The s ystem which generated this result transmitted reference range : 10*3/?L. The reference range was not used to interpret this result as normal/abnormal . GRAN MAT (NEUT) % 52.7 % (test code = 770-8) IMM GRAN % (test code 0.20 % = 4009909288) LYMPH % (test code = 38.2 % 736-9) MONO % (test code = 7.6 % 5905-5) EOS % (test code = 1.0 % 713-8) BASO % (test code = 0.3 % 706-2) GRAN MAT x10^3(ANC) 3.33 10*3/uL 1.88-7.09 (test code = 3834806996) IMM GRAN x10^3 (test <0.03 0.00-0.06 code = 3911987973) LYMPH x10^3 (test code 2.41 10*3/uL 1.32-3.29 = 731-0) MONO x10^3 (test code 0.48 10*3/uL 0.33-0.92 = 742-7) EOS x10^3 (test code = 0.06 10*3/uL 0.03-0.39 711-2) BASO x10^3 (test code <0.03 0.01-0.07 = 704-7) Lab Interpretation Abnormal (test code = 88584-7) [facility]ID [facility]2020-07-20 00:25:44 Test Item Value Reference Range Interpretation Comments SARS-CoV-2 Rapid ID NOW Not Detected Not Detected (test code = 48547-8) SCOTT (test code = SCOTT) ID NOW COVID-19 Assay is an isothermal nucleic acid amplification test intended for the qualitative detection of nucleic acid from SARS-CoV-2 viral RNA in nasopharyngeal (ELECTRIC [employer]SFER [employer]PERATOR) specimens. It is used under Emergency [...] indicated. Lab Interpretation Normal (test code = 46699-2) [facility]. METABOLIC PANEL ([id number])2020-07-19 22:47:37 Test Item Value Reference Range Interpretation Comments NA (test code = 139 mmol/L 135-145 5592190736) K (test code = 3.6 mmol/L 3.5-5.0 3776961096) CL (test code = 103 mmol/L 98-108 1763941272) CO2 TOTAL (test code = 27 mmol/L 23-31 1818420337) AGAP (test code = 2-16 3211879745) BUN (test code = 18 mg/dL 7-23 1887022287) GLUCOSE (test code = 98 mg/dL 70-110 5890640979) CREATININE (test code = 0.78 mg/dL 0.50-1.04 8794322807) TOTAL BILI (test code = 0.7 mg/dL 0.1-1.5 8270681708) CALCIUM (test code = 9.9 mg/dL 8.6-10.6 2205224560) T PROTEIN (test code = 7.4 g/dL 6.3-8.2 3183851560) ALBUMIN (test code = 4.3 g/dL 3.5-5.0 5320922650) ALK PHOS (test code = 97 U/L 34-122 9865966998) ALTv (test code = 39 U/L 5-35 H 1742-6) AST(SGOT) (test code = 32 U/L 13-40 3654422926) eGFR (test code = mL/min/1.73m2 6091416869) SCOTT (test code = SCOTT) Association of [...] tests). Lab Interpretation Abnormal (test code = 10990-6) [facility] JjlpgiIYXHNOMOPC6277-70-83 22:47:02 Test Item Value Reference Range Interpretation Comments APPEARANCE (test code = Clear Clear 5561492236) COLOR (test code = Yellow Yellow 2684037283) PH (test code = 4.8-8.0 0822219823) SP GRAVITY (test code = 1.003-1.030 1236494446) GLU U QUAL (test code = Normal Normal 6455567345) BLOOD (test code = Negative Negative 2087118041) KETONES (test code = Negative Negative 4911329751) PROTEIN (test code = Negative Negative 2887-8) UROBILIN (test code = Normal Normal 0478423242) BILIRUBIN (test code = Negative Negative 0489616559) NITRITE (test code = Negative Negative 2127133702) LEUK BAILEY (test code = Negative Negative 7047203187) RBC/HPF (test code = See_Comment [Autom ated message] 4558459300) The system [employer] generated this result transmitted ref erence range: 0 - 3 HP F. The reference range was not used to int erpret this result as normal/abnormal . WBC/HPF (test code = See_Comment [Autom ated message] 1765140202) The system [employer] generated this result transmitted ref erence range: 0 - 5 HP F. The reference range was not used to int erpret this result as normal/abnormal . BACTERIA (test code = Negative Negative 0504402747) MUCOUS (test code = Slight Negative LPF A 9540524725) SQ EPITH (test code = HPF 3465106194) Lab Interpretation (test Abnormal code = 87464-3) [facility]46[facility]57 Test Item Value Reference Range Interpretation Comments LIPASE (test code = 5762265907) 277 U/L 0-220 H Lab Interpretation (test code = Abnormal 03818-2) [facility] WITH [id number] 22:37:16 Test Item Value Reference Range Interpretation Comments WBC (test code = See_Comment [Automated 6090-2) message] The sy stem which generated this result transmitted reference range : 4.30 - 11.10 10*3/?L. The reference range was not used to interpret this result as normal/abnormal . RBC (test code = See_Comment [Automated 109-8) message] The sy stem which generated this [...] (test code = 34.9 fL 39.0-49.9 L 14988-3) RDW-CV (test code = 12.0 % 12.0-15.5 788-0) PLT (test code = See_Comment [Automated 777-3) message] The sy stem which generated this result transmitted reference range : 166 - 358 10*3/ ?L. The reference r lenard was not used to interpret this result as normal/abnormal . MPV (test code = 9.7 fL 9.5-12.9 01914-2) NRBC/100 WBC (test See_Comment [Automat ed code = 0133352939) message] The system which generated this result transmitted reference range : 0.0 - 10.0 /100 WBCs. The refer ence range was not u sed to interpret th is result as normal/abnormal . NRBC x10^3 (test code <0.01 See_Comment [Auto mated = 3131221820) message] The s ystem which generated this result transmitted reference range : 10*3/?L. The reference range was not used to interpret this result as normal/abnormal . GRAN MAT (NEUT) % 47.2 % (test code = 770-8) IMM GRAN % (test code 0.40 % = 2706230314) LYMPH % (test code = 43.2 % 736-9) MONO % (test code = 7.5 % 5905-5) EOS % (test code = 1.2 % 713-8) BASO % (test code = 0.5 % 706-2) GRAN MAT x10^3(ANC) 2.69 10*3/uL 1.88-7.09 (test code = 1427203900) IMM GRAN x10^3 (test <0.03 0.00-0.06 code = 4103061504) LYMPH x10^3 (test code 2.46 10*3/uL 1.32-3.29 = 731-0) MONO x10^3 (test code 0.43 10*3/uL 0.33-0.92 = 742-7) EOS x10^3 (test code = 0.07 10*3/uL 0.03-0.39 711-2) BASO x10^3 (test code 0.03 10*3/uL 0.01-0.07 = 704-7) Lab Interpretation Abnormal (test code = 69508-9) [facility] [id number] 02:46:10Postsurgical changes with anastomoses sutures in the rightcolon.2. Fluid-filled loops of normal caliber mid and distal small bowel may be anonspecific enteritis.3. Previous hernia repair. No recurrent hernia.4. No hydronephrosis.5. No free fluid. RL: 4400AFC: 23592 END OF REPORT Ordering Physician: JOSE RODRIGUEZ [...] hernia.4. No hydronephrosis.5. No free fluid.RL: 4400AF: [id number] OF REPORT [facility] Complete Metabolic [id number] 01:12:00 Test Item Value Reference Range Interpretation Comments NA (test code = 140 mmol/L 135-145 8736686635) K (test code = 3.7 mmol/L 3.5-5 7908458003) CL (test code = 104 mmol/L 98-108 1292129337) CO2 TOTAL (test code = 26 mmol/L 23-31 7119450421) AGAP (test code = 2-16 2595007392) BUN (test code = 10 mg/dL 7-23 1421724643) GLUCOSE (test code = 99 mg/dL 70-110 5700571804) CREATININE (test code = 0.53 mg/dL 0.5-1.04 1834333704) TOTAL BILI (test code = 0.5 mg/dL 0.1-1.7 6858290404) CALCIUM (test code = 9.7 mg/dL 8.6-10.6 6077261353) T PROTEIN (test code = 8.8 g/dL 6.3-8.2 H 3918930712) ALBUMIN (test code = 4.6 g/dL 3.5-5 4789954364) ALK PHOS (test code = 126 U/L 34-122 H 1746896108) ALTv (test code = 63 U/L 5-35 H 1742-6) AST(SGOT) (test code = 45 U/L 13-40 H 1340730515) eGFR Calculation mL/min/1.73m2 (Non-) (test code = 1939461802) eGFR Calculation mL/min/1.73m2 () (test code = 9138984816) SCOTT (test code = SCOTT) Association of [...] tests). Lab Interpretation Abnormal (test code = 16658-8) [facility], [id number] 01:12:00 Test Item Value Reference Range Interpretation Comments LIPASE (test code = 9112620205) 166 U/L 0-220 Lab Interpretation (test code = Normal 02148-6) [facility] Center[facility]inalysis2020-01-[facility] 01:09:00 Test Item Value Reference Range Interpretation Comments APPEARANCE (test code = Clear Clear 5342546442) COLOR (test code = Yellow Yellow 4157031977) PH (test code = 4.8-8.0 4368918753) SP GRAVITY (test code = 1.003-1.030 8402937279) GLU U QUAL (test code = Normal Normal 3528823161) BLOOD (test code = Negative Negative 7145197831) KETONES (test code = Negative Negative 8587924686) PROTEIN (test code = Negative Negative 2887-8) UROBILIN (test code = Normal Normal 1837254204) BILIRUBIN (test code = Negative Negative 5505141301) NITRITE (test code = Negative Negative 1911677627) LEUK BAILEY (test code = 25/uL Negative A 3856973661) RBC/HPF (test code = See_Comment [Autom ated message] 9931446290) The system [employer] generated this result transmitted ref erence range: 0 - 3 HP F. The reference range was not used to int erpret this result as normal/abnormal . WBC/HPF (test code = See_Comment [Autom ated message] 0973719600) The system [employer] generated this result transmitted ref erence range: 0 - 5 HP F. The reference range was not used to int erpret this result as normal/abnormal . BACTERIA (test code = Negative Negative 1718444301) MUCOUS (test code = Slight Negative LPF A 0923657542) SQ EPITH (test code = HPF 2732554379) Lab Interpretation (test Abnormal code = 22167-5) [facility] WITH [id number] 00:58:00 Test Item Value Reference Range Interpretation [...] (test code = 35.2 fL 39-49.9 L 58731-0) RDW-CV (test code = 12.3 % 12-15.5 788-0) PLT (test code = See_Comment [Automated 777-3) message] The sy stem which generated this result transmitted reference range : 166 - 358 10*3/ ?L. The reference r lenard was not used to interpret this result as normal/abnormal . MPV (test code = 9.3 fL 9.5-12.9 L 77203-0) NRBC/100 WBC (test See_Comment [Automat ed code = 4483953015) message] The system which generated this result transmitted reference range : 0.0 - 10.0 /100 WBCs. The refer ence range was not u sed to interpret th is result as normal/abnormal . NRBC x10^3 (test code <0.01 See_Comment [Auto mated = 8689273656) message] The s ystem which generated this result transmitted reference range : 10*3/?L. The reference range was not used to interpret this result as normal/abnormal . GRAN MAT (NEUT) % 51.0 % (test code = 770-8) IMM GRAN % (test code 0.40 % = 0264788074) LYMPH % (test code = 38.3 % 736-9) MONO % (test code = 7.6 % 5905-5) EOS % (test code = 2.1 % 713-8) BASO % (test code = 0.6 % 706-2) GRAN MAT x10^3(ANC) 2.69 10*3/uL 1.88-7.09 (test code = 8187691834) IMM GRAN x10^3 (test <0.03 0-0.06 code = 3925329061) LYMPH x10^3 (test code 2.02 10*3/uL 1.32-3.29 = 731-0) MONO x10^3 (test code 0.40 10*3/uL 0.33-0.92 = 742-7) EOS x10^3 (test code = 0.11 10*3/uL 0.03-0.39 711-2) BASO x10^3 (test code 0.03 10*3/uL 0.01-0.07 = 704-7) Lab Interpretation Abnormal (test code = 94857-9) [facility] [id number] 00:48:00 Test Item Value Reference Range Interpretation Comments POCT PREG (test code = 1605) negative On board controls acceptable with present C Line (test code = 3574) POCT PREG LOT # (test code = 3575) [id number] POCT PREG TEST DATE (test 10/02/2019 code = 3576) Lab Interpretation (test code = Normal 14255-1) [facility]/ [id number] 05:12:00 Test Item Value Reference Range Interpretation [...] SOURCE(BEAKER) (test code Urine, Clean Catch = 6343) SCREEN, [id number] 05:00:00 Test Item Value Reference Range Interpretation Comments TEST URINE (BEAKER) (test Negative code = 583) BASIC METABOLIC [id number] 03:20:00 Test Item Value Reference Range Interpretation [...] m DATA TO CALCULA TE ESTIMATED GFR. [id number] 03:08:00 Test Item Value Reference Range Interpretation Comments MAGNESIUM (BEAKER) 2.0 mg/dL 1.6-2.6 Specimen slightly (test code = 627) hemolyzed [id number] 03:08:00 Test Item Value Reference Range Interpretation Comments PHOSPHORUS (BEAKER) 2.6 mg/dL 2.3-4.7 Specimen slightly (test code = 604) hemolyzed HEPATIC FUNCTION [id number] 03:08:00 Test Item Value Reference Range Interpretation [...] 347) hemolyzed CBC W/PLT COUNT & AUTO [id number] 02:54:00 Test Item Value Reference Range Interpretation [...]
--- NOTE | 2021-08-10 15:33 | ER ---
Nurse's Notes [facility] Name: Maris Arias Age: 40 yrs Sex: Female : 1980 Arrival Date: 08/10/2021 Time: 14:31 Bed Waiting Private MD: Diagnosis: Presentation: 08/10 14:47 Chief complaint: Patient states: L sided abd pain with N/V since yesterday. Has chron's ll1 and believes she is having a flare-up. No fever. Coronavirus screen: Vaccine status: Patient reports being unvaccinated. Client denies travel out of the [place] in the last 14 days. At this time, the client does not indicate any symptoms associated with coronavirus-19. Ebola Screen: Patient denies travel to an Ebola-affected area in the 21 days before illness onset. Initial Sepsis Screen: Does the patient meet any 2 criteria? No. Patient's initial sepsis screen is negative. Does the patient have a suspected source of infection? Yes: Acute abdominal pain. Risk Assessment: Do you want to hurt yourself or someone else? Patient reports no desire to harm self or others. Onset of symptoms was August 09, 2021. 14:47 Method Of Arrival: Ambulatory ll1 14:47 Acuity: CELESTE 3 ll1 Triage Assessment: 14:49 General: Appears uncomfortable, Behavior is cooperative, appropriate for age. Pain: ll1 Complains of pain in L abdomen Quality of pain is described as aching, crampy. Neuro: No deficits noted. Cardiovascular: No deficits noted. Respiratory: No deficits noted. GI: Reports upper abdominal pain, diarrhea, nausea. Historical: - Allergies: 14:48 No Known Allergies; ll1 - PMHx: 14:48 Crohn's; Depression; LYMPHOMA; C DIFF; neuropathy; ll1 - PSHx: 14:48 bowel resection; Cholecystectomy; hysterectomy; lymph node removal; ll1 - Immunization history:: Client reports receiving the 2nd dose of the Covid vaccine. - Social history:: Smoking status: Reported history of juuling and/or vaping. Vital Signs: 14:47 BP 135 / 78; Pulse 77; Resp 17; Temp 97.9; Pulse Ox 97% ; Weight 89.36 kg; Height 5 ft. ll1 2 in. (157.48 cm); Pain 7/10; 14:47 Body Mass Index 36.03 (89.36 kg, 157.48 cm) ll1 ED Course: 14:31 Patient arrived in ED. mr 14:35 Loi Christian PA is PHCP. cp 14:35 Lc Gurrola MD is Attending Physician. cp 14:48 Triage completed. ll1 14:49 Arm band placed on. ll1 15:26 Patient not in lobby or restroom when called back to ED room for eval. ll1 Administered Medications: No medications were administered Outcome: 15:33 Patient left the ED. ld1 Signatures: Feliz Meenakshi mr Loi Christian PA PA Alyssa Guerin, RN RN ll1 Patience Avilez RN RN ld1
[2021-08-10 16:20] VITALS: BP 135/78; TEMP 97.9; O2SAT 97
== END 2021-08-10 15:33 | disposition left against medical advice (07) ==
LOC: ER 14:29
DX: Z53.21 Procedure and treatment not carried out due to patient leaving prior to being seen by health care provider (principal)
CPT/HCPCS: 99281

== ENCOUNTER 2021-09-10 11:43 | Emergency (ER) | payer BC ==
[2021-09-10] MEDS ORDERED: ONDANSETRON 4 MG/2 ML VIAL ONE (12:22)
[2021-09-10] MEDS ORDERED: MORPHINE 4 MG/ML SYR ONE (12:22)
[2021-09-10] MEDS ORDERED: NA CHLORIDE 0.9% 1,000 ML ONE (12:22)
[2021-09-10 12:31] LABS: Urine Blood Negative (Negative); Urine Glucose Negative (Negative); Urine Protein Negative (Negative); Urine Specific Gravity 1.015 (1.005-1.030)
[2021-09-10 12:45] LABS: Urine Bacteria NONE SEEN /HPF (<20); Urine RBC NONE SEEN /HPF (NONE SEEN)
[2021-09-10 12:45] LABS: Absolute Lymphocytes (CBC) 1.1 K/uL (0.7-4.9); Hematocrit 43.4 % (36.0-45.0); Lymphocytes % 23.5 % (15.3-44.8); MCV 88.5 fL (80-100); MPV 6.6 fL (7.6-11.3)
[2021-09-10 13:00] LABS: Albumin 3.6 g/dL (3.4-5.0); Bilirubin Total 0.6 mg/dL (0.2-1.0); Potassium 3.8 mmol/L (3.5-5.1); Protein, Total 7.7 g/dL (6.4-8.2)
--- NOTE | 2021-09-10 13:42 | RAD REPORT ---
EXAM DESCRIPTION: CTAbdomen Pelvis W Contrast - 09/10/2021 1:35 pm CLINICAL HISTORY: Abdominal pain. LLQ abdominal pain COMPARISON: Abdomen Pelvis W Contrast dated 06/06/2021; Abdomen Pelvis W Contrast dated 04/24/2021; Abdomen Pelvis W Contrast dated 04/13/2021; Abdomen Pelvis W Contrast dated 04/04/2021 TECHNIQUE: Biphasic CT imaging of the abdomen and pelvis was performed with 100 ml non-ionic IV cont rast. All CT scans are performed using dose optimization technique as appropriate and may include automated exposure control or mA/KV adjustment according to patient size. FINDINGS: The lung bases are clear.Cholecystectomy. The liver, spleen, pancreas, adrenal glands and kidneys are within normal limits. No bowel obstruction, free air, free fluid or abscess. Hernia mesh noted left abdominal wall. Absent appendix. Moderate retained stool throughout the colon. No evidence of significant lymphadenopathy. No suspicious bony findings. IMPRESSION: No acute intra-abdominal or pelvic finding.
[2021-09-10] MEDS ORDERED: FENTANYL CITR 100 MCG/2 ML ONE (13:44)
--- NOTE | 2021-09-10 14:58 | EDPHYS ---
Physician Documentation [facility] Name: Maris Arias Age: 41 yrs Sex: Female : 1980 Arrival Date: 09/10/2021 Time: 11:45 Bed 20 Private MD: ED Physician Chris Nava HPI: 09/10 12:11 This 41 yrs old Female presents to ER via Ambulatory with complaints of Abdominal Pain en - crohns, Nausea/Vomiting. 12:11 41-year-old female with history of Crohn's disease and lymphoma with last chemotherapy en 3 months ago presents to ED with 2 days of generalized abdominal cramping greater on the left lower quadrant associated with nausea and nonbloody nonbilious emesis. Patient also reports greater than 10 episodes of watery nonbloody diarrhea. She denies fever, chills. No dysuria, hematuria. This is her typical Crohn's flare.. [employer]: 12:05 LMP N/A - Hysterectomy tw2 Historical: - Allergies: 12:03 No Known Allergies; tw2 - Home Meds: 12:03 gabapentin Oral [Active]; Stelara subcutaneous [Active]; Zoloft Oral [Active]; Lyrica tw2 Oral [Active]; hydrocodone-acetaminophen 10-750 mg Oral tab 1 tab every 4-6 hours [Active]; - PMHx: 12:03 C DIFF; Crohn's; Depression; LYMPHOMA; neuropathy; tw2 - PSHx: 12:03 bowel resection; Cholecystectomy; hysterectomy; lymph node removal; tw2 - Immunization history:: Adult Immunizations. - Social history:: Smoking status: . ROS: 12:11 Constitutional: Negative for fever, chills, and weight loss. en 12:11 Constitutional: Negative for body aches, chills, fatigue, fever. 12:11 Cardiovascular: Negative for chest pain. 12:11 Respiratory: Negative for cough, shortness of breath. 12:11 Abdomen/GI: Positive for abdominal pain, nausea and vomiting, diarrhea, black/tarry stool. 12:11 : Negative for urinary symptoms. 12:11 All other systems are negative. Exam: 12:11 Constitutional: This is a well developed, well nourished patient who is awake, alert, en and in no acute distress. 12:11 Constitutional: The patient appears in no acute distress, alert, awake. 12:11 Eyes: Conjunctiva: normal, no exudate, no injection. 12:11 ENT: Mouth: Lips: moist, Oral mucosa: pink and intact, moist, Posterior pharynx: Airway: patent. 12:11 Neck: ROM/movement: is normal, is supple. 12:11 Cardiovascular: Rate: normal, Rhythm: regular, Heart sounds: normal, no murmur, no rub, no gallop. 12:11 Respiratory: the patient does not display signs of respiratory distress, Respirations: normal, Breath sounds: are clear throughout, no rales, rhonchi, no stridor, no wheezing. 12:11 Abdomen/GI: Inspection: abdomen appears normal, Bowel sounds: normal, Palpation: soft, mild abdominal tenderness, in the left lower quadrant, rebound tenderness, is not appreciated, voluntary guarding, is not appreciated. 12:11 Back: CVA tenderness, is absent. 12:11 Musculoskeletal/extremity: ROM: intact in all extremities, full active range of motion. 12:11 Skin: no rash present. 12:11 Neuro: Orientation: appropriate for stated age, to person, place \T\ time. Mentation: appropriate for stated age. 12:11 Psych: Behavior/mood is pleasant, cooperative. Vital Signs: 12:01 BP 135 / 96; Pulse 83; Resp 17; Temp 98.4(TE); Pulse Ox 95% on R/A; tw2 12:39 BP 138 / 92; Pulse 74; Resp 17; Pulse Ox 95% on R/A; Pain 7/10; tw2 14:14 BP 93 / 73; Pulse 68; Resp 17; Pulse Ox 97% on R/A; Pain 4/10; tw2 14:14 Pain 4/10; tw2 15:08 BP 114 / 69; Pulse 64; Resp 17; Pulse Ox 100% on R/A; tw2 MDM: 12:11 Differential diagnosis: bowel obstruction, diverticulitis, gastritis, Irritable bowel en syndrome, Mesenteric ischemia or infarction, non-specific abd pain, Peptic Ulcer Disease, Pyelonephritis, Ureterolithiasis, urinary tract infection. Data reviewed: vital signs, nurses notes, lab test result(s), radiologic studies, and as a result, I will Manage pain, hydrate.. 12:28 Patient medically screened. en 13:08 ED course: No improvement in pain, will medicate with alternative. en 14:56 ED course: Controlled. Labs and imaging negative. Patient reports previous flare en successfully treated with short course of steroids. Will DC home with prednisone, Zofran and GI follow-up. Acute ER return precautions reviewed. 09/10 12:11 Order name: CBC with Diff; Complete Time: 13:08 en 09/10 12:11 Order name: CMP; Complete Time: 13:08 en 09/10 12:11 Order name: UA MICROSCOPIC; Complete Time: 13:08 en 09/10 12:31 Order name: Urine Dipstick-Ancillary; Complete Time: 12:43 EDMS 09/10 12:11 Order name: CT Abd/Pelvis - IV Contrast Only; Complete Time: 14:23 en 09/10 12:11 Order name: Saline Lock; Complete Time: 12:38 en 09/10 12:13 Order name: Urine Dipstick-Ancillary (obtain specimen); Complete Time: 12:39 tw2 Administered Medications: 12:30 Drug: Zofran (Ondansetron) 4 mg Route: IVP; Site: right antecubital; tw2 13:46 Follow up: Response: No adverse reaction tw2 12:30 Drug: NS 0.9% 1000 ml Route: IV; Rate: 1000 ml; Site: right antecubital; tw2 14:50 Follow up: Response: No adverse reaction; IV Status: Completed infusion; IV Intake: tw2 1000ml 12:32 Drug: morphine 4 mg Route: IVP; Infused Over: 4 mins; Site: right antecubital; tw2 12:59 Follow up: Response: No adverse reaction; Pain is unchanged, physician notified; RASS: tw2 Alert and Calm (0) 13:44 Drug: fentaNYL (PF) 50 mcg Route: IVP; Site: right antecubital; tw2 14:14 Follow up: Pain 4/10 Adult; Response: No adverse reaction; Pain is decreased; RASS: tw2 Alert and Calm (0) Disposition: 17:04 Co-signature as Attending Physician, Chris Nava MD. rn Disposition Summary: 09/10/21 14:57 Discharge Ordered Location: Home en Problem: an acute exacerbation en Symptoms: have improved en Condition: Stable en Diagnosis - Crohn's disease, unspecified, without complications en Followup: en - With: Private Physician - When: 1 - 2 days - Reason: Discharge Instructions: - Discharge Summary Sheet en - Crohn's Disease en Forms: - Medication Reconciliation Form en - Thank You Letter en - Antibiotic Education en - Prescription Opioid Use en Prescriptions: - Prednisone 20 mg Oral Tablet - take 3 tablets by ORAL route once daily for 5 days; 15 tablet; Refills: 0, en Product Selection Permitted - Zofran 4 mg Oral Tablet - take 1 tablet by ORAL route every 12 hours As needed; 20 tablet; Refills: 0, en Product Selection Permitted Signatures: Dispatcher [employer] EDMS Chris Nava MD MD rn Iesha Rockwell RN RN tw2 Lindsey Olmstead PA PA en Corrections: (The following items were deleted from the chart) 12:37 12:12 URINALYSIS+U.LAB.BRZ ordered. EDMS EDMS 12:39 12:12 TEST, SERUM+SC.LAB.BRZ ordered. EDMS EDMS
--- NOTE | 2021-09-10 14:58 | ER ---
Nurse's Notes [facility] Name: Maris Arias Age: 41 yrs Sex: Female : 1980 Arrival Date: 09/10/2021 Time: 11:45 Bed 20 Private MD: Diagnosis: Crohn's disease, unspecified, without complications Presentation: 09/10 12:01 Chief complaint: Patient states: left sided stomach pain since 2 nights ago. +D- approx tw2 8-10 x's/day, +N, +V about 6 times/day . states feels like a Crohns flare but the left sided abd pain is constant and the cramping. Coronavirus screen: At this time, the client does not indicate any symptoms associated with coronavirus-19. Ebola Screen: Patient denies travel to an Ebola-affected area in the 21 days before illness onset. Initial Sepsis Screen: Does the patient meet any 2 criteria? No. Patient's initial sepsis screen is negative. Does the patient have a suspected source of infection? No. Patient's initial sepsis screen is negative. Risk Assessment: Do you want to hurt yourself or someone else? Patient reports no desire to harm self or others. Note provider in exam room at this time. Onset of symptoms was September 10, 2021. 12:01 Method Of Arrival: Ambulatory tw2 12:01 Acuity: CELESTE 3 tw2 Triage Assessment: 12:03 General: Appears in no apparent distress. uncomfortable, Behavior is calm, cooperative, tw2 appropriate for age. Pain: Complains of pain in left lower quadrant. Neuro: Level of Consciousness is awake, alert, obeys commands, Oriented to person, place, time, situation. Respiratory: Airway is patent Respiratory effort is even, unlabored, Respiratory pattern is regular, symmetrical. GI: Reports lower abdominal pain, diarrhea, nausea, vomiting. Musculoskeletal: Range of motion: intact in all extremities. 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 - Social history:: Smoking status: . Screenin:05 Abuse screen: Denies threats or abuse. Nutritional screening: No deficits noted. tw2 Tuberculosis screening: No symptoms or risk factors identified. Fall Risk None identified. Assessment: 12:05 Reassessment: see triage assessment. tw2 12:06 GI: na na. tw2 12:58 Reassessment: No changes from previously documented assessment. Patient and/or family tw2 updated on plan of care and expected duration. Pain level reassessed. Patient is alert, oriented x 3, equal unlabored respirations, skin warm/dry/pink. provider notified pain still 7/10, morphine "did not help much at all" per pt Patient states symptoms have not improved. 14:14 Reassessment: Patient appears in no apparent distress at this time. Patient and/or tw2 family updated on plan of care and expected duration. Pain level reassessed. Patient is alert, oriented x 3, equal unlabored respirations, skin warm/dry/pink. Patient states feeling better. Patient states symptoms have improved. 15:08 Reassessment: Patient appears in no apparent distress at this time. No changes from tw2 previously documented assessment. Patient and/or family updated on plan of care and expected duration. Pain level reassessed. Patient is alert, oriented x 3, equal unlabored respirations, skin warm/dry/pink. Vital Signs: 12:01 BP 135 / 96; Pulse 83; Resp 17; Temp 98.4(TE); Pulse Ox 95% on R/A; tw2 12:39 BP 138 / 92; Pulse 74; Resp 17; Pulse Ox 95% on R/A; Pain 7/10; tw2 14:14 BP 93 / 73; Pulse 68; Resp 17; Pulse Ox 97% on R/A; Pain 4/10; tw2 14:14 Pain 4/10; tw2 15:08 BP 114 / 69; Pulse 64; Resp 17; Pulse Ox 100% on R/A; tw2 ED Course: 11:45 Patient arrived in ED. as 11:54 Bed in low position. Call light in reach. Adult w/ patient. Pulse ox on. NIBP on. tw2 11:55 Lindsey Olmstead PA is PHCP. en 11:55 Chris Nava MD is Attending Physician. en 12:01 Iesha Rockwell RN is Primary Nurse. tw2 12:03 Triage completed. tw2 12:05 Arm band placed on. tw2 12:30 Inserted saline lock: 20 gauge in right antecubital area, using aseptic technique. tw2 Blood collected. 12:31 Urine collected: clean catch specimen, clear. tm3 13:37 CT Abd/Pelvis - IV Contrast Only In Process Unspecified. EDMS 15:08 No provider procedures requiring assistance completed. tw2 15:09 IV discontinued, intact, bleeding controlled, No redness/swelling at site. Pressure tw2 dressing applied. Administered Medications: 12:30 Drug: Zofran (Ondansetron) 4 mg Route: IVP; Site: right antecubital; tw2 13:46 Follow up: Response: No adverse reaction tw2 12:30 Drug: NS 0.9% 1000 ml Route: IV; Rate: 1000 ml; Site: right antecubital; tw2 14:50 Follow up: Response: No adverse reaction; IV Status: Completed infusion; IV Intake: tw2 1000ml 12:32 Drug: morphine 4 mg Route: IVP; Infused Over: 4 mins; Site: right antecubital; tw2 12:59 Follow up: Response: No adverse reaction; Pain is unchanged, physician notified; RASS: tw2 Alert and Calm (0) 13:44 Drug: fentaNYL (PF) 50 mcg Route: IVP; Site: right antecubital; tw2 14:14 Follow up: Pain 4/10 Adult; Response: No adverse reaction; Pain is decreased; RASS: tw2 Alert and Calm (0) Medication: 12:05 VIS not applicable for this client. tw2 Intake: 14:50 IV: 1000ml; Total: 1000ml. tw2 Outcome: 14:57 Discharge ordered by . en 15:09 Discharged to home ambulatory. tw2 15:09 Condition: stable 15:09 Discharge instructions given to patient, Instructed on discharge instructions, follow up and referral plans. medication usage, Demonstrated understanding of instructions, follow-up care, medications, Prescriptions given X 2. 15:09 Patient left the ED. tw2 Signatures: Dispatcher [employer] EDMS Dagoberto Sabillon tm3 Esther Carbajal Tara, RN RN tw2 Lindsey Olmstead PA PA en
[2021-09-10 15:15] VITALS: TEMP 98.4
[2021-09-10 15:23] VITALS: BP 114/69; O2SAT 100
== END 2021-09-10 15:09 | disposition home or self-care (01) ==
LOC: ER 11:43
DX: K50.90 Crohn's disease, unspecified, without complications (principal); R11.2 Nausea with vomiting, unspecified
CPT/HCPCS: 85025; 36415; 80053; 74177; Q9967; J3010; J7030; J2405; 81003; 81015; 96361; 96374; 96375; 99284

== ENCOUNTER 2021-10-17 14:33 | Emergency (ER) | payer BC ==
--- OUTSIDE RECORDS SUMMARY | 2021-10-17 14:36 | XMS REPORT | Clinical Summary ---
:1980 Author Organization [facility] MD [facility] Address [facility] [place] [address] Care Team Providers Name Role Phone Juwan Guerrero MD Primary Care Provider Allergies Not on File Medications Not on file Active Problems Not on file Encounters Date Type Specialty Care Team Description 03/13/2021 Lab Requisition [facility] MD Witson, Anne S., MD 02/28/2021 Ancillary Procedure Radiology Juwan Guerrero M D Cancer 02/20/2021 Travel after 10/17/2020 Social History Tobacco Use Types Packs/Day Years Used Date Never Assessed Sex Assigned at Date Recorded Female 02/20/2021 6:08 PM [employer] Job Start Date Occupation Industry Not on file Not on file Not on file Last Filed Vital Signs Not on file Plan of Treatment Not on file Procedures Procedure Name Priority Date/Time Associated Comments Diagnosis PATHOLOGY OUTSIDE Routine 02/13/2021 Results fo r this INTERPRETATION procedure are in the results section. OSI CT SFT TISS NECK Routine 01/30/2021 9:06 AM Cancer R esults for this [employer] procedure are i n the results section. after 10/17/2020 Results Pathology Outside Interpretation (02/13/2021) Component Value Ref Test Analysis Performed Pathologis t Range Method Time At Signature Materials Accession#, Stained, Block, Unstained Collected Received 03/14/2021 [facility] Received A. 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 Most (70-80%) of the neoplasm has a diffuse pattern, but there are also follicular areas (20-30%) 03/14/2021 [facility] . Both the diffuse and folli cular areas are composed of large neoplastic cells with features centroblasts. Many apoptotic cells are present and mitotic figures are easily identified. The diffuse areas show a starry judith pattern. 8:07 AM [employer] We have reviewed immunohisto chemical studies performed [...] Note: H&E Disclaimer "Some tests reported 03/14/2021 [facility] here may have been 8:07 AM developed and [employer] performance characteristics determined by [facility] Pathology and Laboratory Medicine. These tests have not been specifically cleared or approved by the U.S. Food and Drug Administration. If applicable, controls were reviewed and showed appropriate reactivity." Specimen (Source) Anatomical Collection Method Collection Time Re ceived Time Location / / Volume Laterality Tissue 02/13/2021 03/13/2021 8:17 AM [employer] Miranda Veliz MD LAB PATHOLOGY ORDERABLES Performing Organization Address City/State/ZIP Code Phon e Number [facility] [place] [address] [address] [facility] OSI CT Sft Tiss Neck (01/30/2021 9:06 AM [employer]) Specimen (Source) Anatomical Location Collection Method / Collectio n Time Received Time / Laterality Volume Narrative Systemgenerated, Documentation - 021 9:06 AM [employer] Study acquired at another institution. For comparison only. No MD [place] originated interpretation requested or a vailable. Juwan Guerrero MD IMG OUTSIDE IMAGE ORDERABLES after 10/17/2020 Insurance Payer Benefit Plan / Subscriber ID Effective Dates Phone Addre ss Type Group [employer] PPO POS [id number] 2020-Present [id number] [place] [address] Care Teams Person Investigator Relationship Specialty Start Date End Date Juwan Guerrero MD PCP - General Lymphoma and Myeloma 02/21/21 [address] [place], [place] [id number]
--- OUTSIDE RECORDS SUMMARY | 2021-10-17 14:40 | XMS REPORT | Continuity of Care Document ---
:1980 Author Organization [facility] t Address [address] [place] [address] Care Team Providers Name Role Phone Cesar BRYAN, Juwan Robison Primary Care Physician SYSTEM, PROVIDER NOT IN Attending Clinician Unavailable ANNABELLA CLAROS Attending Clinician Unavailable Fortino FELIX, Chrissie Cao Attending Clinician Dario Hogan DO Attending Clinician JACKIE AWAD Attending Clinician Unavailable Ronnie العلي MD Attending Clinician Jackie Awad MD Attending Clinician CIARA GOMEZ Attending Clinician Unavailable Sergio BRYAN, Marcus Tran Attending Clinician Miranda Veliz MD Attending Clinician Juwan Guerrero MD Attending Clinician MD VIPUL Attending Clinician Unavailable ESTRELLA PARMAR Attending Clinician Unavailable EUGENIA LEE Attending Clinician Unavailable Jesus BRYAN, Eugenia Becerra Attending Clinician LAB90 Attending Clinician Unavailable Harlan [facility]OR [facility], Annabella Attending Clinician Job FELIX, Yajaira Gramajo Attending Clinician Unavailable Darien [facility]OR [facility], Nasreen Attending Clinician Abigail DIRECTOR [facility], Randy Attending Clinician RANDY BARRAGAN Attending Clinician Unavailable Doctor Unassigned, [place] Attending Clinician Unavailable Jose Melendrez Attending Clinician Zen Paz DO Attending Clinician JOSEPH RIVERA Attending Clinician Unavailable Lab, Adc Fam Pob I Attending Clinician Unavailable Debra REEDER, Savana Attending Clinician MACK ROLLINS Attending Clinician Unavailable ADELA BECKWITH Attending Clinician Unavailable STEF GIFFORD Admitting Clinician Unavailable JACKIE AWAD Admitting Clinician Unavailable Jackie Awad MD Admitting Clinician JOSEPH RIVERA Admitting Clinician Unavailable MACK ROLLINS Admitting Clinician Unavailable ADELA BECKWITH Admitting Clinician Unavailable Payers Payer Name Policy Type Policy Number Effective Date Expiration Date S ource [employer] [place] - [id number] 2016 00:00:00 OUT OF [facility] BC 2 [id number] 2020 00:00:00 Problems Condition Condition Condition Status Onset Resolution Last Treating Co mments Source Name Details Category Date Date Treatment Clinician Date Acute Acute Disease Active Univers colitis colitis 3-19 ity of 00:00: [address] Colitis Colitis Disease Active Univers 3-17 ity of 00:00: [address] Depression Depression Disease Active K elsey 4 Seybold 00:00: 00 Inflammato Inflammato Disease Active Overview : Karolina ry bowel ry bowel 06-07 Fili [place] bold disease disease 00:00: g of this 00 note might be different from the original. Chrohns disease since age 14Had [address]es Dr. Johana Celestin st colon exam 2020Last Assessmen t & Plan: Formattin g of [...] abdominal 1-03 ity of pain pain 00:00: [place] 00 Medical Branch Chills Chills Disease Active 2018-03 Univers 0-03 ity of 00:00: [place] [facility] C. C. Disease Active 2018-03 Univers difficile difficile 0-02 ity of diarrhea diarrhea 00:00: [place] 00 Medical Branch Intractabl Intractabl Disease Active 2018-03 U nivers e vomiting e vomiting 0-01 it y of 00:00: [place] 00 Medical Branch History of History of [...] of cholelithi cholelithi 00:00: g of this [place] asis asis 00 note Medical might be Branch different from the original. Added automatic ally from request for surgery [id number] Abdominal Abdominal Disease Active Uni vers pain pain 6-28 ity of 00:00: [place] 00 Medical Branch Crohn Crohn Disease Active Univers disease disease 5-04 ity of 00:00: [place] [facility] Generalize Generalize Disease Active U vinicius d d 5-04 ity of abdominal abdominal [place] 00 [place] Exacerbati Exacerbati Disease Active U vinicius on of on of 2-20 ity of Crohn's Crohn's 00:00: [place] disease disease Medical Branch Intractabl Intractabl Disease Active U vinicius e e 2-12 ity of abdominal abdominal 00:[place] pain [place] 00 [place] Obesity Obesity Disease Active Univers (BMI (BMI 2-12 ity of 30-39.9) 30-39.9) 00:00: Medical Branch Morbid Morbid Disease Active Univers [...] Active Univers ALLERGIE Class ity of S [facility] NO KNOWN Allergy Active [facility] Social History Social Habit Start Date Stop Date Quantity Comments Source History SDOH Karolina polanco Alcohol Frequency History SDOH Karolina polanco Alcohol Std Drinks History SDOH Karolina polanco Alcohol Binge History of Karolina Galicia tobacco use Exposure to Not sure University SARS-CoV-2 [facility] (event) Branch Alcohol intake 2021-05-22 2021-05-22 Current drinker Laura Galicia 00:00:00 00:00:00 of alcohol (finding) Tobacco use and 2021-05-22 2021-05-22 Smokeless tobacco Will Galicia exposure 00:00:00 00:00:00 non-user Education 2021-05-18 2021-05-18 21 University of 00:00:00 00:00:00 [place] [facility] Alcohol Comment 2021-01-25 2021-01-25 social Karolina Se ybold 00:00:00 00:00:00 Tobacco Comment 2021-01-25 2021-01-25 vape Karolina Se ybold 00:00:00 00:00:00 History SDMI 2018-12-03 2018-12-03 5 University o f Financial 00:00:00 00:00:00 [place] [facility] History SDMI Food 2018-12-03 2018-12-03 1 Univers ity of Worry 00:00:00 00:00:00 [place] [facility] History SDMI Food 2018-12-03 2018-12-03 1 Univers ity of Scarcity 00:00:00 00:00:00 [place] [facility] History [facility] 2018-12-03 2018-12-03 2 University o f Transport Med 00:00:00 00:00:00 [place] Medic al [facility] History SDMI 2018-12-03 2018-12-03 2 University o f Transport Non-Med 00:00:00 00:00:00 [facility] edical Branch Sex [birth year] At [birth year] F Universit y of 00:00:00 00:00:00 [place] [facility] Smoking Status Start Date Stop Date Source Ex-smoker 2021-05-22 00:00:00 2021-05-22 00:00:00 Karolina Nico jade Smokes tobacco daily 2021-01-18 00:00:00 Karolina Galicia Never smoker [facility] Current some day 2019-01-05 00:00:00 [facility] smoker Medical Branch Medications Ordered Filled Start Stop Current Ordering Indication Dosage Frequency Signature Comments Components Source Medication Medication Date Date Medication? Clinician (SIG) Name Name FLUoxetine Yes 40mg Take 40 mg U nivers 40 mg 3-21 by mouth ity of capsule 23:14: at [place] 00 bedtime. Medical Branch estradioL Yes .5mg Take 0.5 Univ ers 0.5 mg 3-21 mg by ity of tablet 23:14: mouth [place] 00 daily. Medical Branch gabapentin Yes 300mg Take 300 Un laf 300 mg 3-21 mg by ity of capsule 23:14: mouth 3 [place] 00 (three) Medical times Branch daily. ALPRAZolam Yes 2mg Take 2 mg Un alf (XANAX) 2 3-21 by mouth ity of mg tablet 23:14: as needed Gaurang as 00 for Medical Anxiety. Branch Ustekinumab Yes Inject Courtney ey 45 MG/0.5ML -21 into the Seyb old subcutaneou 09:09: skin s Solution 40 Prefilled Syringe Fluoxetine Yes 40mg Take 40 mg K elsey HCl 40 MG 3-21 by mouth Seybol d oral 09:09: daily Capsule 40 Ustekinumab 2021- No Inject Toney sey (STELARA 3-21 -21 into the Seybol d SC) 09:09: 00:00 [...] [place] injection 40 Medical Branch HYDROcodone Yes Karolina -Acetaminop 3-20 Seybold hen 10-325 00:00: MG oral 00 Tablet HYDROcodone Yes [id number] 1{tbl} Take 1 Un alf -acetaminop 3-20 tablet by ity of hen 10-325 00:00: mouth [place] mg tablet 00 every 6 Medical (six) Branch hours as needed for Pain (scale 7-10). Indication s: acute pain HYDROcodone 2021-0 Yes [id number] 1{tbl} Take 1 Un alf -acetaminop 3-20 tablet by ity of hen 10-325 00:00: mouth [place] mg tablet 00 every 6 Medical (six) Branch hours as needed for Pain (scale 7-10). Indication s: acute pain KCL 2021-0 2021- No 40meq 40 mEq, [...] Yes 2mg 2 mg, Univer s (IMODIUM -18 Oral, ity of A-D) 23:15: Q6HPRN, [place] capsule 2 23 Starting Medica l mg on Fri Branch 05/19/21 at 1815, Until Discontinu ed, Routine, Diarrhea morpHINE 2021-0 Yes 2mg 2 mg, Slow Uni vers injection 2 18 IV Push, ity of mg 21:15: Q3HPRN, [place] 00 Starting Medical on Sat Branch 05/19/21 at 1615, Until Discontinu ed, Routine, Pain (scale 7-10) NaCl 0.9% 0 Yes 1000mL at 125 Univ ers (NS) IV 3-18 mL/hr, IV ity of infusion 20:15: Infusion, [place] 1,000 mL 00 CONTINUOUS Medic al , Starting Branch on Sat05/19/21 at 1515, Until Discontinu ed, Routine KCL 2021-0 2021- No 40meq 40 mEq, Univers (KLOR-CON -18 Oral, ity of M20) tablet 14:00: 14:03 [place]CE, 1 [place] 40 mEq 00 :00 dose, On Medical Fri Branch 05/19/21 at 0900, Routine KCL 2021-0 2021- No 40meq 40 mEq, Univers (KLOR-CON 05-1918 Oral, ity of M20) tablet 10:45: 10:58 [place]CE, 1 [place] 40 mEq 00 :00 dose, On Medical Fri Branch 05/19/21 at 0545, Routine FLUoxetine 2021-0 Yes 40mg 40 mg, Unive rs (PROZAC) 18 Oral, QHS, ity o f capsule 40 04:15: First dose [place] mg 00 (after Medical last Branch modificati on) on Jade 05/18/21 at 2315, Until Discontinu ed, Routine morpHINE 2021-0 2021- No 2mg 2 mg, Slow Un alf injection 2 05-19 IV Push, ity of mg 04:02: 21:13 Q4RN, [place] 15 :29 Starting Medical on Jade Branch 05/18/21 at 2302, Until 05/19/21 at 1613, Routine, Pain (scale 7-10) ondansetron 2021-0 Yes 4mg 4 mg, Slow Univers (ZOFRAN 05-19 IV Push, ity of (PF)) 02:54: Q6HPN, [place] injection 4 28 Starting Medi parth mg on Jade Branch 05/18/21 at 2154, Until Discontinu ed, Routine, Nausea and Vomiting (N/V) HYDROcodone 2021-0 202- No 1{tbl} 1 tablet, Univers -acetaminop 05-1918 Oral, ity of hen (NORCO) 02:54: 04:02 Q6HPRN, [place] 10-325 mg 25 :44 Starting Medica l tablet 1 on Jade Branch tablet 05/18/21 at 2154, Until Jade 05/18/21 at 2302, Routine, Pain (scale 7-10) acetaminoph 2021-0 Yes 650mg 650 mg, Un alf en 18 Oral, ity of (TYLENOL) 02:54: Q6HPRN, [place] tablet 650 20 Starting Medic al mg on Jade Branch 05/18/21 at 2154, Until Discontinu ed, Routine, Pain (scale 1-3) piperacilli 2021- No 3.375g 3.375 g, Univers n-tazobacta [...] br>Duratio n of Therapy: 7 days ondansetron 2021- No 4mg 4 mg, Slow Univers (ZOFRAN [...] Branch Jade 05/18/21 at 1800, STAT morpHINE 2021- No 4mg 4 mg, Slow Un alf [...] of therapy: 72 hours iopamidol 2021- No [id number] 120mL 120 mL, Univers (ISOVUE 05-18 Intravenou [...] 05-18 IV ity of (PHENERGAN) 19:15: 18:27 [place], [place] 12.5 mg in 00 :00 ONCE, 1 Medica l NaCl 0.9% dose, On Branch (NS) 50 mL Jade IV 05/18/21 at [facility] 1415, LEWIS HYDROcodone 2021-0 Yes Karolina -Acetaminop 2-25 Seybold hen (NORCO) 00:00: 5-325 MG 00 oral Tablet Diphenoxyla 0 Yes Karolina te-Atropine 2-12 Seybold 2.5-0.025 00:00: MG oral 00 Tablet Gabapentin 0 Yes Karolina 300 MG oral 1-26 Seybold Capsule 00:00: 00 Stelara 90 0 Yes Karolina MG/ML 1-18 Seybold subcutaneou 00:00: s Solution 00 Prefilled Syringe Alprazolam 0 Yes [id number] .5mg Q.[id number] Take 1 Karolina 0.5 MG oral 1-11 [id number] tablet Seybold Tablet 00:00: 3D (0.5 mg 00 total) by mouth 3 times daily as needed for sleep or anxiety diazePAM 2 0 Yes Karolina MG oral 1-11 Seybold Tablet 00:00: 00 Estradiol 2020-03 Yes .5mg Take 1 Karolina 0.5 MG oral 1-29 tablet Seybol d Tablet 00:00: (0.5 mg 00 total) by mouth daily Ustekinumab 2020-03 Yes Inject Courtney ey (STELARA 1-24 into the Seybold SC) 11:16: skin Every 33 8 Weeks Ustekinumab 2020-03 Yes Inject Courtney ey 45 MG/0.5ML -24 into the Seyb old subcutaneou 11:16: skin s Solution 33 Prefilled Syringe Estrogens 2020-03 Yes [id number] Take one Karolina Conjugated 1-24 tablet Seybold (Premarin) 00:00: daily 0.3 MG oral 00 Tablet Ustekinumab 2020-03 Yes Inject Courtney ey 45 MG/0.5ML -17 into the Seyb old subcutaneou 10:59: skin s Solution 00 Prefilled Syringe Ustekinumab 2020-03 Yes Inject Courtney ey (STELARA 1-17 into the Seybold SC) 10:57: skin Every 52 8 Weeks hydrOXYzine 2020-03 Yes [id number] 10mg Q.[id number] Take 1 Karolina HCl 10 MG 1-17 [id number] tablet (10 Seybold oral Tablet 00:00: 3D mg total) 00 by mouth 3 times daily as needed for itching or anxiety Fluoxetine 2020-03 Yes [id number] 40mg Take 1 K elsey HCl 40 MG 1-17 capsule Seybold oral 00:00: (40 mg Capsule 00 total) by mouth daily hydrOXYzine 2020-03 Yes [id number] 10mg Q.[id number] Take 1 Karolina HCl 10 MG 1-17 [id number] tablet (10 Seybold oral Tablet 00:00: 3D mg total) 00 by mouth 3 times daily as needed for itching or anxiety Fluoxetine 2020-03 Yes [id number] 40mg Take 1 K elsey HCl 40 MG 1-17 capsule Seybold oral 00:00: (40 mg Capsule 00 total) by mouth daily hydrOXYzine 2020-03 Yes [id number] 10mg Q.[id number] Take 1 Karolina HCl 10 MG 1-17 [id number] tablet (10 Seybold oral Tablet 00:00: 3D mg total) 00 by mouth 3 times daily as needed for itching or anxiety Fluoxetine 2020-03 Yes [id number] 40mg Take 1 K elsey HCl 40 MG 1-17 capsule Seybold oral 00:00: (40 mg Capsule 00 total) by mouth daily HYDROcodone 2020- No 1{tbl} 1 tablet, Univers -acetaminop 10-02 Oral, ity of hen (NORCO 07:45: 06:47 ONCE, 1 Gaurang as 5) 5-325 mg 00 :00 dose, Sun Med ical tablet 1 10/02/20 at Branch tablet 0245, LEWIS dicyclomine 2020- No 20mg [...] Sun Medica l NaCl 0.9% 10/02/20 at [facility] h (NS) 50 mL 0145, 50 piggyback mL ondansetron 2020- No 4mg 4 mg, Slow Univers (ZOFRAN 10-02 IV Push, ity of (PF)) 05:15: 04:37 ONCE, 1 [place] injection 4 00 :00 dose, Sun Med ical mg 10/02/20 at Branch 0015, LEWIS Ustekinumab Yes inject Univ ers 45 mg/0.5 8-01 under the ity o f mL SC 04:11: skin. [place] injection [address] [place] [address] Ustekinumab Yes inject Univ ers 45 mg/0.5 8-01 under the ity o f mL SC 04:11: skin. [place] injection [address] [place] [address] Ustekinumab Yes inject Univ ers 45 mg/0.5 8-01 under the ity o f mL SC 04:11: skin. [place] injection [address] [place] [address] Ustekinumab Yes inject Univ ers 45 mg/0.5 8-01 under the ity o f mL SC 04:11: skin. [place] injection [address] [place] [address] Ustekinumab Yes inject Univ ers 45 mg/0.5 8-01 under the ity o f mL SC 04:11: skin. [place] injection [address] [place] [address] Ustekinumab Yes inject Univ ers 45 mg/0.5 8-01 under the ity o f mL SC 04:11: skin. [place] injection [address] [place] [address] Promethazin 2020-0 Yes 25mg Q6H Take 25 mg Karolina e HCl 25 MG 8-01 by mouth Seyb old oral Tablet 00:00: every 6 00 hours as needed Promethazin 2020-0 Yes 25mg Q6H Take 25 mg Karolina e HCl 25 MG 8-01 by mouth Seyb old oral Tablet 00:00: every 6 00 hours as needed proMETHazin 2020-0 Yes [id number] 25mg Take 1 Univers e 25 mg 8-01 tablet by ity of tablet 00:00: mouth [place] 00 every 6 Medical (six) Branch hours as needed for N/V unresponsi ve to Ondansetro n. proMETHazin Yes [id number] 25mg Take 1 Univers e 25 mg 8-01 tablet by ity of tablet 00:00: mouth [place] 00 every 6 Medical (six) Branch hours as needed for N/V unresponsi ve to Ondansetro n. proMETHazin Yes [id number] 25mg Take 1 Univers e 25 mg 8-01 tablet by ity of tablet 00:00: mouth [place] 00 every 6 Medical (six) Branch hours as needed for N/V unresponsi ve to Ondansetro n. proMETHazin Yes [id number] 25mg Take 1 Univers e 25 mg 8-01 tablet by ity of tablet 00:00: mouth [place] 00 every 6 Medical (six) Branch hours as needed for N/V unresponsi ve to Ondansetro n. proMETHazin Yes [id number] 25mg Take 1 Univers e 25 mg 8-01 tablet by ity of tablet 00:00: mouth [place] 00 every 6 Medical (six) Branch hours as needed for N/V unresponsi ve to Ondansetro n. proMETHazin Yes [id number] 25mg Take 1 Univers e 25 mg 8-01 tablet by ity of tablet 00:00: mouth [place] 00 every 6 Medical (six) Branch hours as needed for N/V unresponsi ve to Ondansetro n. proMETHazin Yes [id number] 25mg Take 1 Univers e 25 mg 8-01 tablet by ity of tablet 00:00: mouth [place] 00 every 6 Medical (six) Branch hours as needed for N/V unresponsi ve to Ondansetro n. proMETHazin Yes [id number] 25mg Take 1 Univers e 25 mg 8-01 tablet by ity of tablet 00:00: mouth [place] 00 every 6 Medical (six) Branch hours as needed for N/V unresponsi ve to Ondansetro n. Promethazin 2021- No 25mg Q.25D Take 25 mg Karolina e HCl 25 MG 8-01 -21 by mouth Sey bold oral Tablet 00:00: 00:00 every 6 00 :00 hours as needed ondansetron 2020-0 2020- No 4mg 4 mg, Slow Univers (ZOFRAN -19 05-18 IV Push, ity of (PF)) 00:15: 23:18 ONCE, 1 [place] injection 4 00 :00 dose, Tue Med ical mg 07/19/20 at Branch 1915, Routine morpHINE 2020- No 4mg 4 mg, Slow Un alf injection 4 - 05-18 IV Push, ity of mg 00:15: 23:18 ONCE, 1 [place] 00 :00 dose, Tue Medical 07/19/20 at Branch 1915, STAT NaCl 0.9% 0 2020- No 500mL at 999 Univ ers (NS) bolus 07-19 05-18 mL/hr, 500 it y of infusion 22:30: 23:18 mL, IV [place] 500 mL 00 :00 Infusion, Medical ONCE, 1 [place] dose, 07/19/20 at 1730, STAT Ondansetron 2020-0 Yes 4mg Q.[id number] Take 4 mg Karolina (ZOFRAN) 4 5-18 [id number] by mouth Seybold MG oral 00:00: 3D [...] hours as DISPERSIBLE needed ondansetron 2020-0 Yes [id number] 4mg Take 1 Univers (ZOFRAN 5-18 tablet by ity of ODT) 4 mg 00:00: mouth [place] disintegrat 00 every 8 Medic al ing tablet (eight) Branch hours as needed for Nausea and Vomiting (N/V). ondansetron 2020-0 Yes [id number] 4mg Take 1 Univers (ZOFRAN 5-18 tablet by ity of ODT) 4 mg 00:00: mouth [place] disintegrat 00 every 8 Medic al ing tablet (eight) Branch hours as needed for Nausea and Vomiting (N/V). ondansetron 2020-0 Yes [id number] 4mg Take 1 Univers (ZOFRAN 5-18 tablet by ity of ODT) 4 mg 00:00: mouth [place] disintegrat 00 every 8 Medic al ing tablet (eight) Branch hours as needed for Nausea and Vomiting (N/V). ondansetron 2020-0 Yes [id number] 4mg Take 1 Univers (ZOFRAN 5-18 tablet by ity of ODT) 4 mg 00:00: mouth [place] disintegrat 00 every 8 Medic al ing tablet (eight) Branch hours as needed for Nausea and Vomiting (N/V). ondansetron 2020-0 Yes [id number] 4mg Take 1 Univers (ZOFRAN 5-18 tablet by ity of ODT) 4 mg 00:00: mouth [place] disintegrat 00 every 8 Medic al ing tablet (eight) Branch hours as needed for Nausea and Vomiting (N/V). ondansetron 2020-0 Yes [id number] 4mg Take 1 Univers (ZOFRAN 5-18 tablet by ity of ODT) 4 mg 00:00: mouth [place] disintegrat 00 every 8 Medic al ing tablet (eight) Branch hours as needed for Nausea and Vomiting (N/V). ondansetron 2020-0 Yes [id number] 4mg Take 1 Univers (ZOFRAN 5-18 tablet by ity of ODT) 4 mg 00:00: mouth [place] disintegrat 00 every 8 Medic al ing tablet (eight) Branch hours as needed for Nausea and Vomiting (N/V). ondansetron 2020-0 Yes [id number] 4mg Take 1 Univers (ZOFRAN 5-18 tablet by ity of ODT) 4 mg 00:00: mouth [place] disintegrat 00 every 8 Medic al ing tablet (eight) Branch hours as needed for Nausea and Vomiting (N/V). ondansetron 2020-0 Yes [id number] 4mg Take 1 Univers (ZOFRAN 5-18 tablet by ity of ODT) 4 mg 00:00: mouth [place] disintegrat 00 every 8 Medic al ing tablet (eight) Branch hours as needed for Nausea and Vomiting (N/V). Fluoxetine 2020-0 Yes [id number] 20mg Take 1 K elsey HCl 20 MG 4-06 capsule Seybold oral 00:00: (20 mg Capsule 00 total) by mouth daily Fluoxetine 2020-0 Yes 20mg Take 20 mg K elsey HCl 20 MG 4-06 by mouth Seybol d oral 00:00: Capsule 00 Fluoxetine 2020-0 Yes [id number] 20mg Take 1 K elsey HCl 20 MG 4-06 capsule Seybold oral 00:00: (20 mg Capsule 00 total) by mouth daily Fluoxetine 2020-0 Yes 20mg Take 20 mg K elsey HCl 20 MG 4-06 by mouth Seybol d oral 00:00: Capsule 00 FLUoxetine 2020-0 Yes 20mg Take 20 mg U nivers 20 mg 4-06 by mouth. ity of capsule 00:00: [address] FLUoxetine 202-0 Yes 20mg Take 20 mg U nivers 20 mg 4-06 by mouth. ity of capsule 00:00: [address] FLUoxetine 202-0 Yes 20mg Take 20 mg U nivers 20 mg 4-06 by mouth. ity of capsule 00:00: [address] FLUoxetine 2021-0 Yes 40mg Take 40 mg U nivers 20 mg 4-06 by mouth. ity of capsule 00:00: [address] FLUoxetine 202-0 Yes 40mg Take 40 mg U nivers 20 mg 4-06 by mouth. ity of capsule 00:00: [address] FLUoxetine 202-0 Yes 20mg Take 20 mg U nivers 20 mg 4-06 by mouth. ity of capsule 00:00: [address] FLUoxetine 202-0 Yes 20mg Take 20 mg U nivers 20 mg 4-06 by mouth. ity of capsule 00:00: [address] FLUoxetine 2021-0 Yes 20mg Take 20 mg U nivers 20 mg 4-06 by mouth. ity of capsule 00:00: [address] Fluoxetine 2021-0 2022- No [id number] 20mg Take 1 Karolina HCl 20 MG 4-06 -21 capsule Seybol d oral 00:00: 00:00 (20 mg Capsule 00 :00 total) by mouth daily Fluoxetine 202-0 2022- No 20mg Take 20 mg Karolina HCl 20 MG 4-06 -21 by mouth Seybo ld oral 00:00: 00:00 Capsule 00 :00 lactobacill 2020-0 Yes [id number] 1{tbl} Take 1 Univers us 5-30 tablet by ity of acidophilus 00:00: mouth 2 Gaurang as 25 million 00 (two) Medical cell -100 times Branch mg captab daily. lactobacill 2020-0 Yes [id number] 1{tbl} Take 1 Univers us 5-30 tablet by ity of acidophilus 00:00: mouth 2 Gaurang as 25 million 00 (two) Medical cell -100 times Branch mg captab daily. lactobacill Yes [id number] 1{tbl} Take 1 Univers us 5-30 tablet by ity of acidophilus 00:00: mouth 2 Gaurang as 25 million 00 (two) Medical cell -100 times Branch mg captab daily. lactobacill 2020- No [id number] 1{tbl} Take 1 Univers us 5-30 07-31 [...] mg 03/28/19 at Branch 2114, LEWIS morpHINE 2019- No 4mg 4 mg, [...] 25 mg dose, Sat Branch 03/28/19 at 211, STAT iohexol 2019- 2020- No 120mL 120 mL, Unive rs (OMNIPAQUE 03-29 Intravenou it y of 350 02:45: 02:32 s, ONCE, 1 [place] BULK-100 00 :00 dose, Sat Medica l mL) 03/28/19 at Branch injection 2044, 120 mL Routine ondansetron 2019- No 4mg 4 mg, Slow Univers (ZOFRAN 1-26 01-26 IV Push, ity of (PF)) 02:15: 01:11 ONCE, 1 [place] injection 4 00 :00 dose, Sat Med ical mg 03/28/19 at Branch 2015, LEWIS morpHINE 2020-0 2020- No 4mg 4 mg, Slow Un alf injection 4 03-29 IV Push, ity of mg 02:15: 01:11 ONCE, 1 [place] 00 :00 dose, Sat Medical 03/28/19 at Branch 2014, STAT traMADol 50 2020-0 Yes 50mg Take 1 Univers mg tablet 1-25 tablet by ity o f 00:00: mouth [place] 00 every 6 Medical (six) Branch hours as needed for Pain (scale 4-6). ondansetron 2020-0 Yes 8mg Take 1 Univers (ZOFRAN 1-25 tablet [...] for Pain (scale 4-6). ondansetron 2020-0 Yes 8mg Take 1 Univers (ZOFRAN 1-25 tablet [...] for Pain (scale 4-6). ondansetron 2020-0 Yes [id number] 8mg Take 1 Univers (ZOFRAN 1-25 tablet [...] Pain (scale 4-6). traMADol 50 2020- No [id number] 50mg Take 1 Univers mg tablet 03-28-31 tablet by ity of 00:00: 00:00 mouth [place] 00 :00 every 6 Medical (six) Branch hours as needed for Pain (scale 4-6). ondansetron 2020- No [id number] 8mg Take 1 Univers (ZOFRAN 25 05-18 tablet by ity of ODT) 8 mg 00:00: 00:00 mouth [place] disintegrat 00 :00 every 8 Medic al ing tablet (eight) Branch hours as needed for Nausea and Vomiting (N/V). Immunizations Ordered Filled Immunization Date Status Comments [facility] e Immunization Name Name Influenza Virus [...] hansen Adacel) 00:00:00 Influenza Virus 2020-06-07 Completed Universit y of Vaccine Quad IM 3+ 00:00:00 [facility] TDAP 2020-06-07 Completed [facility] 00:00:00 [facility] Influenza Virus 2020-06-07 Completed Universit y of Vaccine Quad IM 3+ 00:00:00 [facility] TDAP 2020-06-07 Completed [facility] 00:00:00 [facility] Influenza, 2014-02-17 Completed Karolina Galicia Seasonal, 00:00:00 Injectable, Preservative Free Influenza, 2014-02-17 Completed Karolina Galicia Seasonal, 00:00:00 Injectable, Preservative Free Influenza, 2014-02-17 Completed Karolina Seybold Seasonal, 00:00:00 Injectable, Preservative Free Influenza Virus 2014-02-17 Completed Universit y of Vaccine (3+ yrs) 00:00:00 [facility] Influenza Virus 2014-02-17 Completed Universit y of Vaccine (3+ yrs) 00:00:00 [facility] Hepatitis B, Adult 2010-12-20 Completed Karolina Seybold (3 dose) 00:00:00 MMR- Measles, 2010-12-20 Completed Karolina Balesyb old Mumps, Rubella 00:00:00 Hepatitis B, Adult 2010-12-20 Completed Karolina Seybold (3 dose) 00:00:00 MMR- Measles, 2010-12-20 Completed Karolina Stuart old Mumps, Rubella 00:00:00 Hepatitis B, Adult 2010-12-20 Completed Kaorlina Seybold (3 dose) 00:00:00 MMR- Measles, 2010-12-20 Completed Karolina Balesyb old Mumps, Rubella 00:00:00 Hepatitis B, Adult 2010-12-20 Completed Karolina Seybold (3 dose) 00:00:00 MMR- Measles, 2010-12-20 Completed Karolina Seyb old Mumps, Rubella 00:00:00 Hepatitis B, Adult 2010-12-20 Completed Karolina Seybold (3 dose) 00:00:00 MMR- Measles, 2010-12-20 Completed Karolina Seyb old Mumps, Rubella 00:00:00 Hepatitis B, Adult 2010-12-20 Completed Karolina Seybold (3 dose) 00:00:00 MMR- Measles, 2010-12-20 Completed Karolina Seyb old Mumps, Rubella 00:00:00 HEP B, Adult Dosage 2010-12-20 Completed Unive rsity of 00:00:00 [facility] MMR 2010-12-20 Completed University of 00:00:00 [facility] HEP B, Adult Dosage 2010-12-20 Completed Unive rsity of 00:00:00 [facility] MMR 2010-12-20 Completed University of 00:00:00 [facility] Hepatitis B, Adult 2010-11-20 Completed Karolina Seybold [...] Dosage 2010-11-20 Completed Unive rsity of 00:00:00 [facility] HEPATITIS A 2010-11-20 Completed University of 00:00:00 [facility] MMR 2010-11-20 Completed University of 00:00:00 [facility] TDAP 2010-11-20 Completed University of 00:00:00 [facility] HEP B, Adult Dosage 2010-11-20 Completed Unive rsity of 00:00:00 [facility] HEPATITIS A 2010-11-20 Completed University of 00:00:00 [facility] MMR 2010-11-20 Completed University of 00:00:00 [facility] TDAP 2010-11-20 Completed University of 00:00:00 [facility] History Of Chicken 1983-03-04 Completed Karolina Seybold [...] Body temperature 2021-05-22 14:00:00 36.39 Zulma Courtney Galicia Respiratory rate 2021-05-22 14:00:00 16 /min Courtney Galicia Body height 2021-05-22 14:00:00 157.5 cm Karolina garaybocollin Body weight 2021-05-22 14:00:00 92.534 kg Karolina garaybocollin BMI 2021-05-22 14:00:00 37.31 kg/m2 Karolina garaybocollin Systolic blood 2021-05-21 12:50:00 109 mm[Hg] Univer sity of [facility] Diastolic blood 2021-05-21 12:50:00 68 mm[Hg] Unive rsity of [facility] Heart rate 2021-05-21 12:50:00 93 /min [facility] Body temperature 2021-05-21 12:50:00 36.11 Zulma Univ ersity [facility] Respiratory rate 2021-05-21 12:50:00 14 /min [facility] saturation in 2021-05-21 12:50:00 93 /min [facility] Arterial blood by [facility] Pulse oximetry Branch Body weight 2021-05-21 08:49:00 91.989 kg [facility] BMI 2021-05-21 08:49:00 37.09 kg/m2 [facility] Body height 2021-05-19 03:18:00 157.5 cm Universi ty of [facility] Systolic blood 2021-01-25 17:11:00 128 mm[Hg] Karolina [...] saturation in 2021-01-25 17:11:00 98 /min Karolina Seybold Arterial blood by Pulse oximetry Systolic blood [...] 17:28:00 117 mm[Hg] Univer sity of pressure [facility] Branch Diastolic blood 2020-11-02 17:28:00 75 mm[Hg] Unive rsity of pressure [facility] Heart rate 2020-11-02 17:28:00 80 /min Universi ty of [facility] Respiratory rate 2020-11-02 17:28:00 20 /min Univ [facility] Body height 2020-11-02 17:28:00 157.5 cm [facility] Body weight 2020-11-02 17:28:00 90.719 kg [facility] BMI 2020-11-02 17:28:00 36.58 kg/m2 [facility] Oxygen saturation in 2020-11-02 17:28:00 99 /min University of Arterial blood by [place] [facility] Pulse oximetry Branch Systolic blood 2020-10-02 04:23:00 124 mm[Hg] Univer sity of pressure [facility] Diastolic blood 2020-10-02 04:23:00 86 mm[Hg] Unive rsity of pressure [facility] Heart rate 2020-10-02 04:23:00 76 /min [facility] Respiratory rate 2020-10-02 04:23:00 17 /min Univ ers[facility] Oxygen saturation in 2020-10-02 04:23:00 96 /min University of Arterial blood by [facility] Pulse oximetry Branch Body temperature 2020-10-02 03:27:00 37.11 Zulma Univ [facility] Body height 2020-10-02 03:27:00 157.5 cm [facility] Body weight 2020-10-02 03:27:00 91.173 kg [facility] BMI 2020-10-02 03:27:00 36.76 kg/m2 [facility] Systolic blood 2020-07-20 00:00:00 144 mm[Hg] Univer sity of pressure [facility] Diastolic blood 2020-07-20 00:00:00 90 mm[Hg] Unive rsity of pressure [facility] Heart rate 2020-07-20 00:00:00 69 /min [facility] Respiratory rate 2020-07-20 00:00:00 18 /min Univ ers[facility] Oxygen saturation in 2020-07-20 00:00:00 95 /min University of Arterial blood by [facility] Pulse oximetry Branch Body temperature 2020-07-19 21:57:00 37.22 Zulma [facility] Body weight 2020-07-19 21:57:00 99.338 kg [facility] BMI 2020-07-19 21:57:00 40.06 kg/m2 [facility] Systolic blood 2019-03-29 03:00:00 112 mm[Hg] [facility] Di[facility] blood 2019-03-29 03:00:00 66 mm[Hg] [facility] Heart rate 2019-03-29 03:00:00 76 /min [facility] Respiratory rate 2019-03-29 03:00:00 16 /min [facility] Oxygen saturation in 2019-03-29 03:00:00 98 /min [facility] Arterial blood by [facility] Pulse oximetry [place] Body temperature 2019-03-29 00:03:00 36.39 Zulma [facility] Body height 2019-03-29 00:03:00 157.5 cm [facility] Body weight 2019-03-29 00:03:00 99.791 kg [facility] BMI 2019-03-29 00:03:00 40.24 kg/m2 [facility] Procedures Procedure Date / Time Performing Clinician Source Performed LS RAPID STREP ASSAY-LAB 2021-05-22 14:18:41 Dario Hogan TEST BASIC METABOLIC PANEL 2021-05-21 10:01:00 Jose Robles [facility] (NA, K, CL, CO2, GLUCOSE, Medica l Branch BUN, CREATININE, CA) CBC WITH DIFF 2021-05-21 10:01:00 Jose Robles [facility] BASIC METABOLIC PANEL 2021-05-20 10:12:00 [facility] (NA, K, CL, CO2, GLUCOSE, Medica l Branch BUN, CREATININE, CA) CBC WITH DIFF 2021-05-20 10:12:00 [facility] FECAL PATHOGENS BY PCR 2021-05-19 19:09:00 Jackie Awad [facility] BASIC METABOLIC PANEL 2021-05-19 08:37:00 [facility] (NA, K, CL, CO2, GLUCOSE, Medica l Branch BUN, CREATININE, CA) CBC WITH DIFF 2021-05-19 08:37:00 Yuliana Perry [facility] ABDOMEN PELVIS W 2021-05-18 20:45:00 Ronnie العلي [facility] CONTRAST [facility] FECES CULTURE 2021-05-18 18:26:00 Ronnie العلي [facility] acute hospital OCCULT (GUAIAC) BLOOD 2021-05-18 18:26:00 Ronnie العلي [facility] CLOSTRIDIUM DIFFICILE 2021-05-18 18:26:00 Ronnie العلي [facility] TOXIN [facility] LACTIC ACID WHOLE BLOOD 2021-05-18 18:23:00 Ronnie العلي [facility] BLOOD CULTURE SCREEN 2021-05-18 18:21:00 Ronnie العلي [facility] COMP. METABOLIC PANEL 2021-05-18 18:21:00 Ronnie العلي [facility] ([id number]) Medical [place] CBC WITH DIFF 2021-05-18 18:21:00 Ronnie العلي General acute hospital PROTHROMBIN TIME / INR 2021-05-18 18:21:00 Ronnie العلي [facility] ACTIVATED PARTIAL 2021-05-18 18:21:00 Ronnie العلي [facility] THRMPLAS SHAHRIAR [facility] URINALYSIS 2021-05-18 18:21:00 Ronnie العلي [facility] acute hospital COVID-19 (ID NOW RAPID 2021-05-18 18:21:00 Ronnie العلي [facility] TESTING) Medical Branch LAB ONLY COVID 2021-05-18 18:21:00 Ronnie العلي [facility] INTERPRETATION [facility] CONSENT/REFUSAL FOR 2021-05-18 17:31:08 Doctor Unassigned, [facility] DIAGNOSIS AND TREATMENT [facility] [place] NOTICE OF PRIVACY 2021-05-18 17:30:52 Doctor Unassjason, [facility] PRACTICES [facility] [place] PATHOLOGY OUTSIDE 2021-02-13 00:00:00 Miranda Veliz [facility] INTERPRETATION MD [facility] OSI CT SFT TISS NECK 2021-01-30 15:06:00 Juwan Guerrero [facility] er Center ASSIGNMENT OF BENEFITS 2020-11-02 16:11:47 Doctor Unassigned, [facility] LIPASE 2020-10-02 04:35:00 Jose Rodriguez [facility] [place] COMP. METABOLIC PANEL 2020-10-02 04:35:00 Jose Rodriguez [facility] ([id number]) Medical Branch CBC WITH DIFF 2020-10-02 04:35:00 Jose Rodriguez [facility] [place] URINALYSIS 2020-10-02 04:32:[address] [facility] CONSENT/REFUSAL FOR 2020-10-02 03:12:32 Doctor Rosie [facility] DIAGNOSIS AND TREATMENT [facility] [place] COVID-19 (ID NOW RAPID 2020-07-20 00:02:00 Singer [facility] TESTING) Medical Branch LIPASE 2020-07-19 22:26:00 Singer [facility] COMP. METABOLIC PANEL 2020-07-19 22:26:00 Singer Zen [facility] ([id number]) Medical Branch CBC WITH DIFF 2020-07-19 22:26:00 Singer [facility] URINALYSIS 2020-07-19 22:26:[facility] 2020-07-19 21:38:41 Doctor Rosie, [facility] PRACTICES [facility] CONSENT/REFUSAL FOR 2020-07-19 21:37:52 Doctor Rosie, [facility] DIAGNOSIS AND TREATMENT [facility] [place] CT ABDOMEN PELVIS W 2019-03-29 02:36:34 Jose Rodriguez [facility] CONTRAST [facility] POCT TEST 2019-03-29 00:48:00 Jose Rodriguez [facility] Medical Branch LIPASE 2019-03-29 00:47:00 Jose Rodriguez [facility] acute hospital COMP. METABOLIC PANEL 2019-03-29 00:47:00 Jose Rodriguez [facility] ([id number]) Medical Branch CBC WITH DIFFERENTIAL 2019-03-29 00:47:00 Jose Rodriguez sity [facility] URINALYSIS 2019-03-29 00:47:00 Jose Rodriguez University o f [facility] NOTICE OF PRIVACY 2019-03-28 23:58:28 Doctor Unassigned, [facility] PRACTICES [facility] CONSENT/REFUSAL FOR 2019-03-28 23:55:31 Doctor Unassigned, [facility] DIAGNOSIS AND TREATMENT [facility] [place] Encounters Start End Encounter Admission Attending Care Care Encounter Source Date/Time Date/Time Type Type Clinicians Facility Department ID 2021-02-21 Outpatient SYSTEM, [facility] [id number] 16:13:12 PROVIDER Kuldip guidry 2021-01-02 Emergency [facility] [id number] [facility] Emergency X [facility] ERT [id number] Univers 19:53:57 [facility] 2021-01-01 Emergency [facility] [id number] Univers 19:53:02 [facility] 2021-10-09 2021-10-09 Outpatient KAROLINA CLAROS [id number] Karolina 00:00:00 00:00:00 ANNABELLA calderón 2021-07-18 2021-07-18 Outpatient KAROLINA CLAROS [id number] Karolina 00:00:00 00:00:00 ANNABELLA calderón 2021-05-23 2021-05-23 Transition CARMITA Freitas [id number] Univers 00:00:00 00:00:00 of Care Chrissie NAGY [id number] i [id number] [address] Branch 2021-05-22 2021-05-22 Office Myron Hogan 1.2.840.114 [id number] Karolina 09:00:00 09:15:00 Visit Dario Weaver 350.1.13.13 Se ybold 1.2.7.2.686 [id number] 2021-05-18 2021-05-21 Inpatient X AMEYA [facility] [id number] Univers 12:37:00 11:14:00 JACKIE ity of [facility] 2021-05-18 2021-05-21 [facility] Ronnie العلي [facility] 1.2.840.1 [id number] Univers 12:37:00 11:14:00 Encounter [facility] [id number] ity of [place] 4.2.7.2.686 [facility] [id number] [address] 2021-03-23 2021-03-23 Outpatient KAROLINA CLAROS [id number] Karolina 00:00:00 00:00:00 ANNABELLA Seybol stephane 2021-03-23 2021-03-23 Outpatient KAROLINA GOMEZ [id number] Karolina 00:00:00 00:00:00 AHMED Seybol stephane 2021-03-14 2021-03-14 Outpatient KAROLINA CLAROS [id number] Karolina 00:00:00 00:00:00 ANNABELLA Stuartol stephane 2021-03-13 2021-03-13 Lab [place] 1.2.840.1 [id number] Univers 00:00:00 00:00:00 Miranda Ba 57992.1.1 ity of n 3.412.2.7 [place] .3Jose475054 MD Garcia8 [facility] 2021-03-13 2021-03-13 Lab [place] 1.2.840.1 [id number] Univers 00:00:00 00:00:00 Miranda Ba 70346.1.1 ity of n 3.412.2.7 [place] .3Jose224517 MD Garcia8 [facility] [place] 2021-03-01 2021-03-01 Outpatient KAROLINA CLAROS [id number] Karolina 00:00:00 00:00:00 ANNABELLA Stuartol stephane 2021-02-28 2021-02-28 Ancillary ERIC Guerrero 1.2.840.1 [id number] Univers 20:00:00 20:05:00 Procedure Juwan Robison 62685.1.1 ity of 3.412.2.7 [place] .3.481019 MD Garcia8 [facility] 2021-02-28 2021-02-28 Ancillary Cesar, 1.2.840.1 [id number] Univers 20:00:00 20:05:00 Procedure Juwan Robison 94047.1.1 ity of 3.412.2.7 [place] .3.087824 MD Garcia8 [facility] 2021-02-20 2021-02-20 Travel 1.2.840.1 1.2.829.102 [id number] Univers 00:00:00 00:00:00 17561.1.1 350.1.13.41 ity of 3.412.2.7 [place]3.698 [place] .3.423815 084.8 MD Thompson [facility] 2021-02-20 2021-02-20 Travel 1.2.840.1 1.2.775.940 [id number] [facility] 00:00:00 00:00:00 21419.1.1 350.1.13.41 ity of 3.412.2.[place]3.166921 084.8 MD Thompson [facility] 2021-02-09 2021-02-09 Outpatient SATNAM MOORE [id number] Karolina 00:00:00 00:00:00 MD Narciso LINol d 2021-02-07 2021-02-07 Outpatient KAROLINA MOORE [id number] Karolina 09:50:00 09:50:00 Seybol d 2021-02-07 2021-02-07 Outpatient ESTRELLA PARMAR [id number] Karolina 00:00:00 00:00:00 Seybol d 2021-02-06 2021-02-06 Outpatient ESTRELLA PARMAR [id number] Karolina 00:00:00 00:00:00 Seybol d 2021-02-01 2021-02-01 Outpatient KAROLINA MOORE [id number] Karolina 12:40:00 12:40:00 Seybol d 2021-01-30 2021-01-30 Outpatient JESUS KAROLINA MOORE [id number] Karolina 00:00:00 00:00:00 EUGENIA Stuartol d 2021-01-25 2021-01-25 Office MERCED LeeSHERMAN 1.2.840.114 [id number] Karolina 11:30:00 12:00:00 Visit Eugenia Becerra 350.1.13.13 Seybold 1.2.7.2.686 [id number] 2021-01-20 2021-01-20 Outpatient HARLANKAROLINA [id number] Karolina 00:00:00 00:00:00 ANNABELLA Seybol d 2021-01-18 2021-01-18 Outpatient LAB90 KAROLINA MOORE [id number] Karolina 11:55:00 11:55:00 Seybol d 2021-01-18 2021-01-18 Office Myron Claros 1.2.840.114 [id number] Karolina 10:49:52 11:19:52 Visit Annabella Weaver 350.1.13.13 Se ybold 1.2.7.2.686 [id number] 2020-11-04 2020-11-04 Letter ROBERTA Kaiser 1.2.840.114 [id number] Univers 00:00:00 00:00:00 (Out) Yajaira AJ 350.1.13.10 it y of [facility] 4.2.7.2.686 Gaurang as [id number] [address] 2020-11-02 2020-11-02 Urgent Darine Nasreen [facility] 1.2.840.114 [id number] Univers 11:13:05 11:33:05 Care [facility] 350.1.13.10 ity [facility] 4.2.7.2.686 Gaurang as Bebo?Blea [id number] Me [address] Medical Office Building 2020-11-02 2020-11-02 Outpatient R [facility] [id number] Univers 11:20:00 11:20:00 [id number] ity [facility] 2020-11-02 2020-11-02 Outpatient R ABIGAIL, [facility] [id number] Univers 11:20:00 11:20:00 RANDY ity o f [facility] 2020-11-02 2020-11-02 Orders Doctor ROBERTA 1.2.840.114 [id number] Univers 00:00:00 00:00:00 Only Unassigned, JEAN MARIE 350.1.13.10 ity of [facility] 4.2.7.2.686 Gaurang as [phone] [facility] 009 Branch 2020-10-01 2020-10-02 Emergency Rodriguez, [facility] 1.2.759.856 [id number] Univers 22:30:00 01:56:00 Jose Walsh Randall 350.1.13.10 i ty of [place] 4.2.7.2.686 [facility] [id number] [address] 2020-07-19 2020-07-19 Emergency Paz, [facility] 1.2.166.965 [id number] Univers 16:54:00 19:37:00 Zen Randall 350.1.13.10 i ty of [place] 4.2.7.2.686 [id number] [address] 2020-07-19 2020-07-19 Orders Doctor ROBERTA 1.2.840.114 [id number] Univers 00:00:00 00:00:00 Only Unassigned, JEAN MARIE 350.1.13.10 ity of [place] [facility] 4.2.7.2.686 Gaurang as [id number] [facility] 009 [place] 2020-06-07 2020-06-07 Outpatient LAB90 KAROLINA MOORE [id number] Karolina 10:00:00 10:00:00 Seybol d 2020-06-07 2020-06-07 Outpatient ESTRELLA PARMAR [id number] Karolina 08:30:00 08:30:00 Seybol d 2020-02-04 2020-02-05 Inpatient E NICOLE, BL MED 7501 BL 11:00:00 16:58:00 JOSEPH 2019-09-11 2019-09-11 Laboratory Lab, Adc Fam Pob I [facility] 1.2. 840.114 [id number] Univers 14:09:42 14:29:42 Only Savana Richardson 350.1.13.10 ity of [place] 4.2.7.2.686 Gaurang as [facility] [phone] Dc dical nal 0[address] Branch Office Building One 2019-09-11 2019-09-11 Outpatient R [facility] [id number] Univers 14:20:00 14:20:00 [id number] ity [facility] 2019-09-11 2019-09-11 Outpatient R [facility] [id number] Univers 14:20:00 14:20:00 [facility] 2019-07-29 2019-08-01 Outpatient X AYO [facility] [id number] Univers 14:08:13 12:04:00 [facility] 2019-03-28 2019-03-28 Emergency [facility] 1.2.597.287 [id number] Univers 18:12:42 22:01:00 Jose Marianoton 350.1.13.10 [place] [id number] [facility] 084 [place] Results Test Description Test Time Test Comments Results Result Comments Source LS RAPID STREP ASSAY-LAB TEST 2021-05-22 14:39:14 Test Item Value Reference Range Interpretation Comme nts STREP GP A AG, IA (test code = Negative Negative [place]fection [place] 48528-4) be ruled-out be cause the antigen present in the sample may be below th e detection limit of the te st. Specimen has been sent for c onfirmation of negative. Lab Interpretation (test code = Normal 66010-1) [facility] WITH [id number] 15:41:00 Test Item Value Reference Range Interpretation Comments WBC (test code = See_Comment L [Automated 8090-2) message] The sy stem which generated this [...] RDW-SD (test code = 42.5 fL 39.0-49.9 84416-4) RDW-CV (test code = 13.9 % 12.0-15.5 788-0) PLT (test code = See_Comment L [Automated 777-3) message] The sy stem which generated this result transmitted reference range : 166 - 358 10*3/ ?L. The reference r lenadr was not used to interpret this result as normal/abnormal . MPV (test code = 10.0 fL 9.5-12.9 76514-3) NRBC/100 WBC (test See_Comment [Automat ed code = 5585944867) message] The system which generated this result transmitted reference range : 0.0 - 10.0 /100 WBCs. The refer ence range was not u sed to interpret th is result as normal/abnormal . NRBC x10^3 (test code See_Comment [Auto mated = 7575637766) message] The s ystem which generated this result transmitted reference range : 10*3/?L. The reference range was not used to interpret this result as normal/abnormal . SEG % (test code = 34 % 33-76 31336-2) BAND % (test code = 18 % 0-1 H 56961-0) META % (test code = 4 % See_Comment H [Automa garo 66982-4) message] The sy stem which generated this result transmitted reference range : <=0. The refere nce range was not u sed to interpret th is result as normal/abnormal . MYELO % (test code = 3 % See_Comment H [Autom ated 11918-5) message] The sy stem which generated this result transmitted reference range : <=0. The refere nce range was not u sed to interpret th is result as normal/abnormal . LYMPH % (test code = 30 % 14-54 38180-6) MONO % (test code = 8 % 0-4 H 58467-8) EOS % (test code = 3 % 0-3 53375-8) ANC (test code = 1.53 10*3/uL 1.88-7.09 [...] . Lab Interpretation Abnormal (test code = 59976-9) [facility] METABOLIC PANEL (NA, K, CL, CO2, GLUCOSE, BUN, CREATININE, CA)2021-05-21 12:04:23 Test Item Value Reference Range Interpretation Comments NA (test code = 143 mmol/L 135-145 4879284653) K (test code = 3.8 mmol/L 3.5-5.0 3245069284) CL (test code = 113 mmol/L 98-108 H 8217131032) CO2 TOTAL (test code = 22 mmol/L 23-31 L 2506535263) AGAP (test code = 2-16 7185181822) BUN (test code = <2 7-23 L 4889463470) GLUCOSE (test code = 114 mg/dL 70-110 H 0637039744) CREATININE (test code = 0.43 mg/dL 0.50-1.04 L 1396685225) CALCIUM (test code = 8.4 mg/dL 8.6-10.6 L 4492730850) eGFR (test code = mL/min/1.73m2 1304932339) SCOTT (test code = SCOTT) Association of [...] tests). Lab Interpretation Abnormal (test code = 62546-3) [facility] METABOLIC PANEL (NA, K, CL, CO2, GLUCOSE, BUN, CREATININE, CA)2021-05-20 12:32:44 Test Item Value Reference Range Interpretation Comments NA (test code = 137 mmol/L 135-145 8631093576) K (test code = 3.3 mmol/L 3.5-5.0 L 7845359129) CL (test code = 105 mmol/L 98-108 6635392516) CO2 TOTAL (test code = 23 mmol/L 23-31 7873033922) AGAP (test code = 2-16 3994738806) BUN (test code = <2 7-23 L 6756372011) GLUCOSE (test code = 98 mg/dL 70-110 6597881744) CREATININE (test code = 0.40 mg/dL 0.50-1.04 L 9096823592) CALCIUM (test code = 7.8 mg/dL 8.6-10.6 L 3380740365) eGFR (test code = mL/min/1.73m2 3528978289) SCOTT (test code = SCOTT) Association of [...] tests). Lab Interpretation Abnormal (test code = 19019-1) [facility] WITH [id number] 12:03:45 Test Item Value Reference Range Interpretation Comments WBC (test code = See_Comment LL [Automated 8664-2) message] The sy stem which generated this result transmitted reference range : 4.30 - 11.10 10*3/?L. The reference range was not used to interpret this result as normal/abnormal . RBC (test code = See_Comment L [Automated 939-8) message] The sy stem which generated this [...] RDW-SD (test code = 39.9 fL 39.0-49.9 32614-9) RDW-CV (test code = 12.9 % 12.0-15.5 788-0) PLT (test code = See_Comment L [Automated 777-3) message] The sy stem which generated this result transmitted reference range : 166 - 358 10*3/ ?L. The reference r lenard was not used to interpret this result as normal/abnormal . MPV (test code = 10.0 fL 9.5-12.9 82841-4) IPF % (test code = 2.1 % 1.3-7.7 Platelet count 5157896695) measured by fluorescence method. NRBC/100 WBC (test See_Comment [Automat ed code = 9655006047) message] The system which generated this result transmitted reference range : 0.0 - 10.0 /100 WBCs. The refer ence range was not u sed to interpret th is result as normal/abnormal . NRBC x10^3 (test code See_Comment [Auto mated = 9752116696) message] The s ystem which generated this result transmitted reference range : 10*3/?L. The reference range was not used to interpret this result as normal/abnormal . GRAN MAT (NEUT) % 29.1 % (test code = 770-8) IMM GRAN % (test code 14.20 % = 9504986079) LYMPH % (test code = 29.2 % 736-9) MONO % (test code = 20.8 % 5905-5) EOS % (test code = 4.2 % 713-8) BASO % (test code = 2.5 % 706-2) GRAN MAT x10^3(ANC) 0.35 10*3/uL 1.88-7.09 L (test code = 3556188052) IMM GRAN x10^3 (test 0.17 10*3/uL 0.00-0.06 H code = 8364594624) LYMPH x10^3 (test code 0.35 10*3/uL 1.32-3.29 L = 731-0) MONO x10^3 (test code 0.25 10*3/uL 0.33-0.92 L = 742-7) EOS x10^3 (test code = 0.05 10*3/uL 0.03-0.39 711-2) BASO x10^3 (test code 0.03 10*3/uL 0.01-0.07 = 704-7) Lab Interpretation Abnormal (test code = 36319-8) [facility] with [id number] 11:04:29 Test Item Value Reference Range Interpretation [...] RDW-SD (test code = 41.0 fL 39.0-49.9 09573-0) RDW-CV (test code = 13.2 % 12.0-15.5 788-0) PLT (test code = See_Comment L [Automated 777-3) message] The sy stem which generated this result transmitted reference range : 166 - 358 10*3/ ?L. The reference r lenard was not used to interpret this result as normal/abnormal . MPV (test code = 10.4 fL 9.5-12.9 94374-9) IPF % (test code = 3.1 % 1.3-7.7 Platelet count [id number]) measured by fluorescence method. NRBC/100 WBC (test See_Comment [Automat ed code = 3218479475) message] The system which generated this result transmitted reference range : 0.0 - 10.0 /100 WBCs. The refer ence range was not u sed to interpret th is result as normal/abnormal . NRBC x10^3 (test code See_Comment [Auto mated = 5345774445) message] The s ystem which generated this result transmitted reference range : 10*3/?L. The reference range was not used to interpret this result as normal/abnormal . GRAN MAT (NEUT) % 20.7 % (test code = 770-8) IMM GRAN % (test code 2.10 % = 3142999718) LYMPH % (test code = 41.7 % 736-9) MONO % (test code = 25.0 % 5905-5) EOS % (test code = 6.3 % 713-8) BASO % (test code = 4.2 % 706-2) GRAN MAT x10^3(ANC) 0.10 10*3/uL 1.88-7.09 L (test code = 0495115985) IMM GRAN x10^3 (test <0.03 0.00-0.06 code = 8505723709) LYMPH x10^3 (test code 0.20 10*3/uL 1.32-3.29 L = 731-0) MONO x10^3 (test code 0.12 10*3/uL 0.33-0.92 L = 742-7) EOS x10^3 (test code = 0.03 10*3/uL 0.03-0.39 711-2) BASO x10^3 (test code <0.03 0.01-0.07 = 704-7) BANDS (test code = Increased A 5029793915) DOHLE BODIES (test Present A code = 7792-5) PLT ESTIMATE (test Decreased Normal A code = 9317-9) Lab Interpretation Abnormal (test code = 54225-8) [facility] (NA, K, CL, CO2, GLUCOSE, BUN, CREATININE, CA)2021-05-19 09:30:28 Test Item Value Reference Range Interpretation Comments NA (test code = 138 mmol/L 135-145 6543471513) K (test code = 3.4 mmol/L 3.5-5.0 L 9689178920) CL (test code = 102 mmol/L 98-108 3238849122) CO2 TOTAL (test code = 27 mmol/L 23-31 9874671805) AGAP (test code = 2-16 2587601228) BUN (test code = 3 mg/dL 7-23 L 7291964480) GLUCOSE (test code = 96 mg/dL 70-110 4996897410) CREATININE (test code = 0.43 mg/dL 0.50-1.04 L 0247074200) CALCIUM (test code = 8.0 mg/dL 8.6-10.6 L 5338620549) eGFR (test code = mL/min/1.73m2 1606873413) SCOTT (test code = SCOTT) Association of [...] tests). Lab Interpretation Abnormal (test code = 93342-9) [facility] WITH [id number] 19:24:45 Test Item Value Reference Range Interpretation [...] RDW-SD (test code = 39.0 fL 39.0-49.9 21287-2) RDW-CV (test code = 13.0 % 12.0-15.5 788-0) PLT (test code = See_Comment L [Automated 777-3) message] The sy stem which generated this result transmitted reference range : 166 - 358 10*3/ ?L. The reference r lenard was not used to interpret this result as normal/abnormal . MPV (test code = 9.7 fL 9.5-12.9 55825-7) IPF % (test code = 2.3 % 1.3-7.7 Platelet count [id number]) measured by fluorescence method. NRBC/100 WBC (test See_Comment [Automat ed code = 5878695617) message] The system which generated this result transmitted reference range : 0.0 - 10.0 /100 WBCs. The refer ence range was not u sed to interpret th is result as normal/abnormal . NRBC x10^3 (test code <0.01 See_Comment [Auto mated = 1356812221) message] The s ystem which generated this result transmitted reference range : 10*3/?L. The reference range was not used to interpret this result as normal/abnormal . GRAN MAT (NEUT) % 37.9 % (test code = 770-8) IMM GRAN % (test code 3.00 % = 9884536182) LYMPH % (test code = 36.4 % 736-9) MONO % (test code = 15.2 % 5905-5) EOS % (test code = 4.5 % 713-8) BASO % (test code = 3.0 % 706-2) GRAN MAT x10^3(ANC) 0.25 10*3/uL 1.88-7.09 L (test code = 4961290682) IMM GRAN x10^3 (test <0.03 0.00-0.06 code = 0623450709) LYMPH x10^3 (test code 0.24 10*3/uL 1.32-3.29 L = 731-0) MONO x10^3 (test code 0.10 10*3/uL 0.33-0.92 L = 742-7) EOS x10^3 (test code = 0.03 10*3/uL 0.03-0.39 711-2) BASO x10^3 (test code <0.03 0.01-0.07 = 704-7) BANDS (test code = Increased A 7112175897) DOHLE BODIES (test Present A code = 7792-5) Lab Interpretation Abnormal (test code = 15094-5) [facility]21-[facility]-18 18:49:49 Test Item Value Reference Range Interpretation Comments NA (test code = 135 mmol/L 135-145 6906881654) K (test code = 3.8 mmol/L 3.5-5.0 2484874323) CL (test code = 97 mmol/L 98-108 L 1815055100) CO2 TOTAL (test code = 30 mmol/L 23-31 6656664911) AGAP (test code = 2-16 9788570895) BUN (test code = 3 mg/dL 7-23 L 4773361686) GLUCOSE (test code = 102 mg/dL 70-110 8195943072) CREATININE (test code = 0.41 mg/dL 0.50-1.04 L 7949534918) TOTAL BILI (test code = 0.8 mg/dL 0.1-1.5 4086011262) CALCIUM (test code = 8.7 mg/dL 8.6-10.6 8918062407) T PROTEIN (test code = 7.2 g/dL 6.3-8.2 2679655778) ALBUMIN (test code = 4.4 g/dL 3.5-5.0 9218790254) ALK PHOS (test code = 133 U/L 34-122 H 1228919428) ALTv (test code = 26 U/L 5-35 1742-6) AST(SGOT) (test code = 26 U/L 13-40 0363543378) eGFR (test code = mL/min/1.73m2 0448642183) SCOTT (test code = SCOTT) Association of [...] tests). Lab Interpretation Abnormal (test code = 99081-6) [facility] [id number] 18:44:46 Test Item Value Reference Range Interpretation Comments APTT Patient (test See_Comment [Automat ed code = 3173-2) message] The system which generated this result transmitted reference range : 23 - 38 Seconds . The reference range was not used to interpr et this result as normal/abnormal . SCOTT (test code = SCOTT) The [facility] patient population mean normal value for aPTT is 30 seconds. Lab Interpretation Normal (test code = 20249-2) [facility] Center[facility] / [id number] 18:42:45 Test Item Value Reference Range Interpretation [...] tions. Lab Interpretation (test Normal code = 86324-4) [facility] Outside Ujcaupdgrjjiiz1508-01-73 14:07:55 Test Item Value Reference Range Interpretation Comments Materials Received (test u7crkMMbGSVhwCCaBoRx code = 9973) OZHgREJiz3xkIVKkaPGr ZzEwMzNcZnRuYmpcdWMx BDXcVpJpd8hbz076fMUx p2zdYNKrOkD7bFJqGNTs qGKjP441GDXyZNxzk5hm m9RzREOnzIVpl4G1EYUN nssykSj8eTlcP87tr9S4 ErusV6orYVNkLJVeP7Ux FW3yJYBzQhs3PIV9PDD6 IYDgSKQjS7KrAC5dCTBp qMYjOJe5t5khvSmlZEPp HTM2h2qoFSszqfIlHP9s nv1kgAz2e8bfdeAmURXu NBQkgQXSFOIoA5ProSnx Mx4iyLt5bFdaEnhxGNK8 Ava8BW3sdf32cyh2cNik BGHitvmdUjR4ZKiiVGSw mqosKNb2MPsaOEPfmDrj MFxtYXJncjcyMFxtYXJn lFE5RDAhnAKeZ0PoODJm GNwxNLNursf0XfGzLc6f jNDmpQioCWnbo3phw4lu mQFnDfa9TCEiHjVgIcmk NIbta2Etx7dfMGCtoy7j GVZ6wIGnjXowg5Z4cWCz LVTviHGhcbCdBXCkpv02 pWJieBXbcTVlxf5cvnIs qARraEXpNVO1kXLthoHl LKOjhFLsMKFfIL4axRQa HSLhcT2pvlmdUOHrZtLt njmyYXEgnWjwdsFeWs0q rEjpTTH1XYnkL8iuuG5g VgP1JVvuZ5ehmU6zNUr5 NYankNB0LWAzgH6aYI3j ltupm5vbQyStMI4dndjf j6wbKgTwLT9hbac8s4cw SPA3DNdiGGKfFkU8izC7 NDBcaGVhZGVyeTcyMFxm z651MIB2KhEkLHJnk0Pa N2VqqKofP62eyWkfV88e YNUrkKllsM7vdBwmsW6u RvYvRxDpCGg3zg69MMj1 jbfwaRsdGVx2zwTiKLFu MTC8HCYufIMxZPOvW3l8 dwUnOEMnHZU5DZQhqGVr FBSgU8p4cxQnLDW7YPl9 cnBhZGRmdDNcdHJwYWRk YjBcdHJwYWRkZmIzXHRy kYWrrJLijKLvjO2dkKuv NROxzOZyrG6nURJ0HYMx cmgzMjBcdHJoZHJcbHRy jh53DNNfqfAgsQPqpVly jVHqZWN4DESeBRLbWPEl ELJ1YLSdNqXhmdEhDPvs bGJyZHJiXGJyZHJzXGJy CEZ1KCMnSyDkmrZaUQjk bGJyZHJsXGJyZHJzXGJy OHH6JLXoNiYwqpZnSSak bGJyZHJyXGJyZHJzXGJy LMH1LEFwGpQwtdMkHIoi bHBhZHQxMFxjbHBhZGZ0 D0nlxULjAUNlNLogoKFc UKEyE2cotLLoFRipDEGb cGFkZmwzXGNscGFkYjBc X4llXITxCcRuC4RlyEq3 MDAwXGNsdmVydGFsdFxj pYCkYZP2LFPfVENcAPZn EWD8STLzPwOcinAcPPkm bGJyZHJiXGJyZHJzXGJy RXQ0NKZoGyOhrzPiIKgz bGJyZHJsXGJyZHJzXGJy AQP4QCXnEnBmpxUqOEzc bGJyZHJyXGJyZHJzXGJy SGX5MIUpObHhdxSyRQbw bHBhZHQxMFxjbHBhZGZ0 Y0tfaSTbJWJaAWcgsEKk KWAnP6cbnCUlHLkpVNGx cGFkZmwzXGNscGFkYjBc X2ueWCIpMjBzO7NhxYb3 NjAwXGNsdmVydGFsdFxj oOFgVEZ2DCToSBWrUVLk EQX7KJBsEhRdwmCgJJzl bGJyZHJiXGJyZHJzXGJy UMZ1VUJmXwYiutHmKHtk bGJyZHJsXGJyZHJzXGJy RIE5TDNhGwPvvcAeFRsb bGJyZHJyXGJyZHJzXGJy NZR5UGJdGbPaftGeVDtg bHBhZHQxMFxjbHBhZGZ0 O6cboJObWYTePPzdtOPz NIIiT4skeVYlDTzqOIJr cGFkZmwzXGNscGFkYjBc Z5vmUYGrLoPkC3BfuYv8 RtYiATMeaoMzsV08Oqda d4OaCMWqUEE9EAnqVZdo bFxwbGFpblxmMVxmczIw LSfyboppCLCkURetK8sa SgFqHYYhnLrlVQkfn7Bj XGYxXGNmMlxmczIwXGIg KSKuBCZwsM5xEqanJ8Ut mZ9cTGyoOrlbK2jvZYNx k6NdqA2kSCadoMDxijms MVxmczIwXGxhbmcxMDMz CPlqI5nqEeQmPVWkdLsj JYnak3KnUMKnZALlQben yoLyVIk7saVmFPGbzRlc dPNdQRolyvJwxAera1Vw ymClxKqhSQWrKNo6hcWd mqdeqVw5eQOekKzfKWXo cVkecG3oOiDmHwSdYZlm bGFpblxmMVxmczIwXGxh kpscBHLsOHvsC6mkUrSb KXCwwZnzNIgxg6TfDQNx RGGbUqsadpXtGYMhN26o bGVjdGVkXHBsYWluXGYx XGZzMjBcbGFuZzEwMzNc aGljaFxmMVxkYmNoXGYx AHexC3dkEgKnI8KcBHHe WoUrpDDnD2xvL5EznCxs YXJkXGludGJsXHNzcGFy TNV5tCRboyZivWQqpOFv ROBqZGjgGTE8aOCdnuum cVMeyrawWYkldtN2CUUc YWluXGYxXGZzMjBcbGFu ZzEwMzNcaGljaFxmMVxk XpVxCTTzKIacV0wrTuCo S9ZiTMIxExQoZaMACRTj aXZlZFxwbGFpblxmMVxm czIwXGxhbmcxMDMzXGhp N0vaRqSrIWVzqGtwHPzm k6RjLLKgLFWqVsyomrZm GOk5xrUsVGDmkTkdaQ56 Zglmlj69JCDpp5ddFOIb Q6UhpDMmAIAlbKYvTQjv MDhcdHJwYWRkZmwzXHRy cGFkZHIxMDhcdHJwYWRk ZnIzXHRycGFkZHQwXHRy zCTgGYP7U8j7zfOgTSTj OPl8mbRgDMRqLoUlsLGn UOW6RFe8GdmcmqH9jAPd E0l1TvjdwcCoPNlhmNLo xu59KOWwrkGwfVHcbQzm kBJnVKY5YZBtMJPyITNl UFW7FJUpKgJvfpEqNHhf bGJyZHJiXGJyZHJzXGJy EKB4KRNaIjDikaFzRQxn bGJyZHJsXGJyZHJzXGJy OYJ3CFYlEqCtebFoTNao bGJyZHJyXGJyZHJzXGJy EWY7VMVyWvXxugGsWJrk bHBhZHQxMFxjbHBhZGZ0 C2rtbNQnODPnKMxhoBKg DXHfB4yigCGaLXppMXZy cGFkZmwzXGNscGFkYjBc G4xdEFEtJkNcI9OmnQj9 MDAwXGNsdmVydGFsdFxj uCIvJPC9EPErPAOnSGEv CGF4WBByWeNxbzTwFYqx bGJyZHJiXGJyZHJzXGJy KAN4AYVjLhKrfmVjZLyb bGJyZHJsXGJyZHJzXGJy HIB9JGSnPdQfgoNnDKuv bGJyZHJyXGJyZHJzXGJy NIQ9PBGgYzBvgaXzSOeu bHBhZHQxMFxjbHBhZGZ0 L7bjxTKhFYKnBYtpzCHr MIBlN9dwwNQtUTysUBMe cGFkZmwzXGNscGFkYjBc D2wjMFGnQzSzB5RqnAx0 NjAwXGNsdmVydGFsdFxj yBBkFRJ5APBoUQQoBZGy PIB9JUZiDyZcoqRpCFnf bGJyZHJiXGJyZHJzXGJy YAO4DJFkBzDvzxKxACgl bGJyZHJsXGJyZHJzXGJy PEC7ZXIcIbCjicWnMOzr bGJyZHJyXGJyZHJzXGJy YPX5RYXwOrItcrTkUQlh bHBhZHQxMFxjbHBhZGZ0 U6senCIgZFMsFZealENh BWVvO6gefIVlCIspLKGe cGFkZmwzXGNscGFkYjBc M2hyQKAkVkHcC8PkvHn9 BqPpVKBkyeHnzK01Ufdk q9OmFBFkPFC4XYxbDZfo bFxwbGFpblxmMFxmczI0 XHBsYWluXGYxXGZzMjBc bGFuZzEwMzNcaGljaFxm BEhgKuIhAHFqNFvuV5yj XvCrS8WwQIUoKfIbJH9r PxR4PGMhQYWwWSQmNMAX VpfcFTBPWN4GB0OpNGWe VVNTXHBsYWluXGYxXGZz MjBcbGFuZzEwMzNcaGlj aFxmMVxkYmNoXGYxXGxv U3xvOcIiF6YjPXMmXzBy jQKiD0sxA9NyiSthIICa XGludGJsXHNzcGFyYWF1 tBBrarSkmVckzMfnqF4t ZjBcZnMyNFxwbGFpblxm MVxmczIwXGxhbmcxMDMz NBlsR4xyXhLgIEQnsWjx YIlxd3GqSUStBXBlEcbw czIwIDEyLzEzLzIwMjFc wPqlgR7nTyXgUmDeCJly DL8tQNWuO5rdxCLgJCSr GDYyJ1bnVoXlkT7goGjo MVxjZjJcZnMyMFxsdHJj hIzoXOgbLPInhtDkoP57 Rfafq6GrXOPsRIL9YTcc MFxxbFxwbGFpblxmMFxm byG3ECMsFKqhOMVkAPDb MjBcbGFuZzEwMzNcaGlj aFxmMVxkYmNoXGYxXGxv Z0gxYdRfG6DiQOZnOwEm GM2xFF7tBMYzBEHjRQpw XGYxXGZzMjBcbGFuZzEw MzNcaGljaFxmMVxkYmNo XYKjXVjeB7gvZvYcJ5Ok FVYmTvJjnAMwQ0lcW7Va iJhzfbAbdThtq1xzlYMw HBoib2RsmwFrsEpsEHUq XHFsXHBsYWluXGYwXGZz AeFypHjdbO4uYmIyFsKy TCmfDZ4xJWSyG9dlpSRx OIKxECEbI1hzFpKtqO7r aFxmMVxmczIwXHBhcn0= Diagnosis (test code = h9nxhERfMDStsMJ2BoQg 34) UHIng2mkx6XsnRSipVUh WWpatYUnxtWdsl47dMC8 lS23ZU8rXPGuCvC1RTPr ceX7Pgr3MZIhFVKrxWDl M656c4bmo1hmqjOcdKL4 IARyKANjH1YcGK1mPCSw tYQeP65leBWdHTC4DYDj JITbqYWtKIZbPNK7CGSr hRMqK2yuZJBkYK4vtjex GIrjXSjqGIIjvHM5MPSz qTWdF2CdMPDoGIofLNTc hcf5AgJgMl0tzXBeqKmd MFxwYXJkXHBsYWluXGZz BjWnM8JmXTk4jZHiTA9k ZGUgKGxlZnQgdXBwZXIg nlTvmyzwCDJ3A5tdiL6m WAlqCicyjUV0OoywYQMt I2PgAHVawpicoKteNAkb xW20RdEvJHsRWtJVAIQW QVJHRSBCLUNFTEwgTFlN UEhPTUEgKDcwLTgwJSkg LD9EZGPYBSjNG3VXPDYm TFlNUEhPTUEsIEdSQURF TWXLNChoHS0pXIFsROUn xrglVMVfVOtqTM4md2Xb CUMnTKxxynGbVVbgen5a bmFsIGNlbnRlciBCLWNl vZnfzX7tbB3ddXahyu19 pWUxAKDcLEGBxP23YyUt cyB+OTAtOTUlIFxwYXJc cGFyZFxwYXJ9 Comment (test code = m8eztUWiPWMehQK3BgEz 9835) XTIkk1nga5CncTAwqUUx MDyylUVbrfZlcz69oJI1 rI10DG9jDRGyUfT9XKMa urY6Oin2SQKiWRFfjBFl G075s1aig9jempZpoKR5 dZohUEBmldhyYoY7VPwe XMBrbwxdQXs3RMeyOZQf eFZ7NWOivFNoM5QlZRYz WH3lxmx8III3YBxwFKHw UfW5FPNthGRtHQTznJeq SGknr916BBM9DpXkERAn vuUduGljbE1hAcDoHEBN vGM1z8tcH3whRFLmP3Gn e71rVCGkv2ylbOrpdKzu fo9cLQXqzsB7uInfoEZ0 jFXmJRKhkJx1TAR0eANw QGzuPCEfgT2zdRCas51g yQN5KYk2EYBjoQhwR5Xh OIJ0XKd9zOHpa23nEzIk SK4phCBeYgGoELInACGe JgA3qXWufoSveCmrb20j aGFzIGEgZGlmZnVzZSBw WZV5QSXqLIHmjMQfgIwt fyYiJJWgISIhp55aBw7p bGljdWxhciBhcmVhcyAo UaLwPaZsKW5aAf49uTN8 aGUgZGlmZnVzZSBhbmQg Cm1ypSgeiKvurlKqupTn efNdtmRcK51ddB4aRKVj f3BzlSMdB1RytlJrgIyp k5XoAmFzDFkkmtH1iHGr IWCdZCT3xeRdVZXxxuLz u1JqAFN4rn3uQCQecHEi kX6sqM73cFMeB8NzzOZc HSZtJCBcPJDmtaGaNY7a FQ7jiV94nUWuDcqhsTDu tzRoeaJbXXLioYq6DBxu BL90rMEdTTRtXEYyGMNq aWZmdXNlIGFyZWFzIHNo m9ntLECxoOCcdsxgg3k4 VITsdWRgdx2yXRauqzQh bGluZSBXZSBoYXZlIHJl uxiqv0KyPAmrdNCky7zl n5MdU6aroRkfLNmla7Q5 HCshpgAyOWSlm0IpXQKl XRtmCWrfBCZiVO8qCALj tYAyd7OdN7klFO4oIMLl PSJnLS9qwXWhfZswNVGs fEgnEAYfPHIvr1JwpHm8 YIOxr5JoE0RfXXpvU8Ts IWxyF1U1LqCrl0Swwgah FXRMCNwbozBog2drRXjb QkNMXGVuZGFzaCAyIChz iKCqebjfMFAVY2jpST5d QZXfZCYnOL2lLZ5LXPKx JSICJUbxUV9lKTJiKAYc DVxsrMi2KTEti2DyF8At LCBDRDUsIENEMjEsIENE NpUjITXlNMFqdREafS5p XJLgQDMrPVLiosPjAp0q gJGccKNxaRRfQwAmu9Uj C2QwWLNuhZ36xwNyd34x CVJkcBcfT2OzYNPfBAJb ZHJpdGljIGNlbGwgbmV0 a59dd2Nhl3x0vRszGAUa AXTxj2lumSZ3uMPwGCWw vAAwzoIfnABkIbJ2zXZc ibWheXpjc28cUIDqWREp uhXrSv3rdMLzsURjiTBl IiZqm5OqY0hyTclmv7dc j0LbSSKizi6kaRLemnL9 tA8wKVDkqPDyy0JbFFTa OTUlIGluIHRoZSBkaWZm dXNlIGFyZWFzIGFuZCBp dkYqc22zPV2yXJVsFYWx x2klpUA9dXLrYDKdYSSg LiAgXHBhclxwYXIgQWNj c9GwgN4nGQZoEUFaRHYf zEHmiSD5GHNvfaPet3B0 SACskxFflXV9XCb6JuTk VZw3EGBgo47dXP6xlRbl zQTfd5gww6XlSZTpEFZy mKzrFX7fc1DzWDSvIRnq KS3wP6P2yGTfGKXnrdCD iLO4GYoqCFGaBYSlsIWJ BLKxVSMuneRyMVEyA57i UXWoKr0GJDbATeWNWV6r VGhpcyBzbGlkZSBoYXMg cq23LARaRO9qg8SxfLA5 kuS4blNux1KmqjV4pQT9 HjmssI2iGGikfiVdVKDm l7ZknT3pUDScRPInWKAz bEQymUL2PCHvidUol2F0 GLPkbU17CAG1mV7wJRDc bGIbcB77rk1byICwo1F5 oQaoTWL4yMNxGPLcr6Zb IZYtCHVpd9EzTUIrk72r KRTqMPnzHEQ4p7WtciMb i58cv0AsmBytvaAexSIt tI9hdg5bZLhhTSZtb7Eq cMXui8eqx1ZxHYNkPUCx tlDqwiLxFq0aKVquMBPr aBEjHDYrf72vaT6flBHf ckDoYw6qJS1ffc26iSWo QdFgFT5tFWRtMC9sOBRZ PLQqPZ9vBEUbwJDlk9Al yDmeJnGaQdKay6IkcGer BPR9QL55uePlbfPyhDee QM8mJEsyTAkmwhVnmt67 GDTyZB0or5YetDZnTZCd hPZyFKJrNDKas6ioM7n6 w72hsHE6TJVzoW7njXYk x5ObpdK2iXT9SntciW9x NQiesxKwZMMcj8EvmL9e IHRvIHRoZSBzdWJtaXR0 PCIuacLpm4C3YALdySOq wvLbO4YkC0TnbF1ru3p6 vHAmjOOooVRapxS0nN1l IChGSVNIKSBzdHVkaWVz KFfecpRit6VnOWRdSSP7 sfGtq9Ffu8EwIo0tCOwc MN7XO2lfWXAjHQsrFJIO TDJcaTAgIGFuZCBcaSBC D7y2NKicQPVkBUXjqkRw U5CjTC57ko6kI3Gnx6ib sDLnUSO1KJW5XAKeV54s iEMlVxY0hJG0WHEddD4d cM7eNOIzthdqZDLhsTIf GNUfF8qvfMTfvPIXsWRq O8UeOp92BMonVXGUQODc clxwYXJ9 Disclaimer (test code = u8mqwBDuYIZrpRFaZiYj 9844) CSTuURBoz9rhCLIjxAAn ZzEwMzNcZnRuYmpcdWMx LORxZoXto9fxe867uQYk h9evTTPnPvC8jKNzRBQx cAMhL113XMClQOkbr8bc x3LdRHBuuOBwt7W9GHRW vwvhlSm3qXunB57ud6O9 NhauZ0tnVHHeWERrL8Xz DT9dXWIcMvl4UWQ9HEV6 YROeQQHxR5RgUM9aGVKg pWVqGXo3q8znbLhcHLOl LOT7d1loNUrjepZwUJ4b od4xtYj5s8gfhfLlVNXl GPTqkAMHOXWxA3RwjJnl Cy1lvNs7uUrxAyppKIF2 Ziu1QZ3vdb04ufv7sWwj ZFItgouuYpX7ESupMCXz afgcGNq8PGihVLDbrWM5 XURjoPOsB6NhJWGdLR8b uyr7RJL5ZQgtQBYwUxH9 NDBcaGVhZGVyeTcyMFxm b604AXL8TwDmYF8nN0Th s1L5aI4oeYSlNDJacGQr PfOuIPEdzz4bkTSjOKuy k6IxSRN5caF4mANanROm OAVbDR96Fbgxf0JtYljk MPH8ZHIaokEcs3Usq5zx BdHggaInN7jmO1PlPZIf NATfUUUhIpWubjYkn2Yi z2JrmMXmsYa2s6keXTEf MFQdoJewu5raPQQ1SYGy R1U4yDIfd9psFDuiJRAg oNE2suW0HQPoeOPnW6Bt iP8iELFoCN1ghvf5a1ax IVR6RCqcNCMhWtP1jkW7 NDBcaGVhZGVyeTcyMFxm n279JEL9TvWpSTNnw1Hz L8TrnPqsD82epQwxO98r OQUmiVfgjI6fjUqzqI4w ZjBcZnMyNFxxbFxwbGFp rumvSSfoyfC4THadgdan NXRkEJxkO6wkLoDzZLOs vSucXSnla6LiSHDnONJq VhwunqM5CXLDf70tZCGx l4TkEFWhtN7ldXQcYOft gjCjzRJ0AEftqeBzRkFq okElUGUxeE9pYKHfRA4s DLBwgnGvhq6rqeLaIQNe RFHtF0IxmxgykYecuyBv ZJQyyz2qijFvYKI2PZTL YT4DSDLcIQTmg87mOAAt dMvakD5utITypqGcLBBg q0SfuA8zgLXWJMIhR7rs LL6xAEwwb8ZzgRWkiGUm aKG9VSZkg7GfIbFgzxZf jICvrZEzU6DpkXwaB4wy PMTtJFTrdtVnaJNda2Ue DTVqvJZ4vXBxNE4ADkTQ j22sLSCeMAXPpjJhKKEv zWirvKS3ckJ3rH1nXjWX ZiBhcHBsaWNhYmxlLCBj l799hr3ydcA5EXRxQAWd dxrmb6YvACWfTLToqT48 OJHyVFNplw6ynuwooDPk llVgM1Pcpwk7aT3yUCOz YWluXGYxXGZzMjJcbGFu ZzEwMzNcaGljaFxmMVxk GfYiBGLaQGzbJ1jrFtAx ZnMyMlxwYXJ9 [facility] [place] [place] Interpretation 2021-03-14 14:07:55 Test Item Value Reference Range Interpretation Comments Materials Received (test d8oaoQKnNXCndCDjChNu code = 9973) VSThRAYix7iqMCDviDZb ZzEwMzNcZnRuYmpcdWMx NHPgXrOkl4fxz864xHPi z2vlFBCrQaC3cKWkOZWz bXVtP851INMuSJmhx6mb x9UrRSZdaCEbb6G4TQDK rtfaxMy1eTaaY57is9R9 IdlkJ4bhISGvNTJyN1Rs HA1iGSVuGca1TDG5IDX9 HDGwRJUdW5ZfTU4cSDXq wQLuXMe3b3jeyLfnDSQl SXQ3t3vxVFwskdKtFD3i rk8ybLo6s6ctauGsVCRg WPBxmTSMHGPyY4DrjGwe Wn3buBf7fZlsFxvpFDV2 Ovt4JM4izx97wwh6oTul JRViwmhmMtU4BKvsEPDq wrcqNBj4GIktKJWyqGqk MFxtYXJncjcyMFxtYXJn bJS5YVYovIDsF3KiLWVe NQzgBWDccwk1TkGbMq4a rBMsxBsaRAzgi7xcb7qs qTYuKqt0EYRoQgStHnaf TKuuj7Hkq6skQMXfdx8l CHY6nPHefDjhp4K6hQVl BXFaaSWsdvUwYOQbxu56 gTXadQUjiWDzzf3ivtDk wLYxyZHhVMF7xFUmqxKu EBDcrSHeLWXtEH1ugBCw HTEupK2jpgmrXDJgOwRp mqgyPZPqwSrmncTkVh0z qTjwSWR6GGhhZ4uduY4c GzV3JDvxA3esgO9bMDi7 IPlerXG5POWkpZ1iYA3m fviyr5lyVoRpDH3ityog y4zqLwKyBQ7deod1v3fm JUQ7RCwwRATbHzD5wwS4 NDBcaGVhZGVyeTcyMFxm a115PFO5XhUcWUSbg2Ry J1WsdUlkO01olEzkR02b DDDkrWnyrD4dsDztqW1v LqDuCeYwJPz0dj07NFn9 psztbLxgITj1bbFeVURj LAV9KFKdsDMmDUNuU9f3 yuAfLWSaZQH8HIIuvWTt AQKvQ5n9ciBiMCM6VSe4 cnBhZGRmdDNcdHJwYWRk YjBcdHJwYWRkZmIzXHRy tPJdcMCtkYLziB8cqGqu KXLnjKTujK8oLWM7AYHc cmgzMjBcdHJoZHJcbHRy fp34XOSepkLisEFeeFma gNRxQGI7LCFwQVBkQVEz OTZ3VAUqLwPlcrRoWVvu bGJyZHJiXGJyZHJzXGJy XUB6GXOoGlXvuyIoOStf bGJyZHJsXGJyZHJzXGJy SON8GPWsNnBuisDySCgs bGJyZHJyXGJyZHJzXGJy GJK9KLYtJxVglyPeSZdd bHBhZHQxMFxjbHBhZGZ0 J6pywWLwYBYgGBerlVQg PNIsJ5vvfYVpFYdvEIIl cGFkZmwzXGNscGFkYjBc P2ovCCXoWcGcZ9QvhUo8 MDAwXGNsdmVydGFsdFxj jTTeCWO3QOSrSMSgXRPl RYH6DYSpEuLcgvGiAAxl bGJyZHJiXGJyZHJzXGJy CBC1CNTdJoTcvnBxOXin bGJyZHJsXGJyZHJzXGJy LTX2OYWsBfTczlLaHBai bGJyZHJyXGJyZHJzXGJy OEL8ZXPyWkNmijPtLUfq bHBhZHQxMFxjbHBhZGZ0 T3djtDXjNLBlYZbkpKYp ZJTuB0fbuMXvZKlnFXTu cGFkZmwzXGNscGFkYjBc I1qqLSEmLlIwM5RzmDy3 NjAwXGNsdmVydGFsdFxj uTLaHVB9KBHhRKOyGFVm OJA4CLEkKzQnjvYoWWhs bGJyZHJiXGJyZHJzXGJy SEL3SKDbQyNzmjQnGDww bGJyZHJsXGJyZHJzXGJy BYQ4VHAoRdZpgcZfJKho bGJyZHJyXGJyZHJzXGJy UQW0KIYwTwTkoqReRDbq bHBhZHQxMFxjbHBhZGZ0 T5urlMPtOQDfQYvreDMq UJNmC5jeuOTpVGnuRBCe cGFkZmwzXGNscGFkYjBc V7yuTZPsKzEhI4KjyNl7 KtRsLLBhxxPueS48Abuw b6QfJXJnRYW9RPakOGcc bFxwbGFpblxmMVxmczIw JBhfxghkQKEjBFzsA6sk JzPtORFtjAugDSpjz4Jj XGYxXGNmMlxmczIwXGIg TAYkSGAglT7qCndpT2Vk iW0cEGcoSmtyJ3bvLYFa m1ZbqD8oMYyamITfoqzl MVxmczIwXGxhbmcxMDMz KOyfR9ysCuEsRVTozCyq EFaea2FxKVZnSFCnYeiy bwGqTTx8mvYkZCFtkAia dHWpUQontlOhsJnsf9Pw ysRztAczTWNpDVg5pvRx jsgueNk8iJGqdDdzAOMr uOilwO1lGhXrFgQqTFja bGFpblxmMVxmczIwXGxh lyyzEXUyWHozQ3fkMnXv BYCxuAyjCSicl5IcCOGq UOLbGjpdglLqTFUrF15g bGVjdGVkXHBsYWluXGYx XGZzMjBcbGFuZzEwMzNc aGljaFxmMVxkYmNoXGYx YWnoE3wbQaMrV0DuNLAi HnIgvWRnL2yvK6YudVbb YXJkXGludGJsXHNzcGFy HAC3zPVsubZopYKjmVVz YJTkMPmiMAO4mSWnchny wRVewsntRGpvchH7MFMw YWluXGYxXGZzMjBcbGFu ZzEwMzNcaGljaFxmMVxk VrGcNOWxKSekK5juOtTi A0GdMSXhOhNdTyMNEXTn aXZlZFxwbGFpblxmMVxm czIwXGxhbmcxMDMzXGhp H8lwHpAjRLSzaBejWNlu s6NxEQXeBCGoPjqkklGg HBy9lsOuFTOmoKzqtB83 Ieqbhl72ZCHwe0ugMDOk Q6GpiPYcBXMpeAWoGZfy MDhcdHJwYWRkZmwzXHRy cGFkZHIxMDhcdHJwYWRk ZnIzXHRycGFkZHQwXHRy jFUrMRU9Z1m8awYrTCPg FDf7wqBcUUXwReIfoDXw BXF5VPr4AcxdfnQ3nQMf L7n5JogzdcDeKZpkhKRb zo91XBQomqQbsUSbmPyc mBAcYML1CDCfBHXmBGKv ZIX2YFIyLqLnboBkUDkz bGJyZHJiXGJyZHJzXGJy MJB4SPCcUoPglzZaWSpr bGJyZHJsXGJyZHJzXGJy TQK9HGRbQqZtxhVaGBdg bGJyZHJyXGJyZHJzXGJy NTA0ZPWqTuNpxqCyPShr bHBhZHQxMFxjbHBhZGZ0 N5phaJMkAKKkUHkaiOQa CSPsW9ngaPJmNKgiAOZf cGFkZmwzXGNscGFkYjBc L0tuGUYmKrNjW4AuqVw7 MDAwXGNsdmVydGFsdFxj eXLoDHN2QEWgFPSkJCRb HWP3HPVuVqHyijLuTWad bGJyZHJiXGJyZHJzXGJy BGX7WGNrBtCyejEpWIiw bGJyZHJsXGJyZHJzXGJy LTS5UZAbYjNmtlAlFArz bGJyZHJyXGJyZHJzXGJy CJT2RARtMqHurpMuXEpo bHBhZHQxMFxjbHBhZGZ0 J0wfvJHoKWQyCCjdzRDi QYVfT0apzJMtFAxcASDa cGFkZmwzXGNscGFkYjBc F4qtTLLnFqXkH6JesHx1 NjAwXGNsdmVydGFsdFxj rWUiNCX0ETFmNNLvGLPn ZJW8CXPdBpIpypXeEYch bGJyZHJiXGJyZHJzXGJy JEG6LSCvZsOqmlCsQKqp bGJyZHJsXGJyZHJzXGJy XLD5NXDvOrNhloLvKKes bGJyZHJyXGJyZHJzXGJy JFW6HVNlEhQigyVfHSvb bHBhZHQxMFxjbHBhZGZ0 H4wwxMZkXTNdETpqxUQa JHOlZ1edlKJzCXjcPIFs cGFkZmwzXGNscGFkYjBc V9cmTNEcXuKpZ8DsmJd1 BpVnPSEwvyCntY11Ftgc g5EpBUSrOYF3PFliZOpw bFxwbGFpblxmMFxmczI0 XHBsYWluXGYxXGZzMjBc bGFuZzEwMzNcaGljaFxm SXioRqDhYWXfJTghR3fp ZaWfH1YuCCOuClCmTU7l JoD2ZAMiETNbULRtPLFN OytiSXJIFJ4CU9MtZODn VVNTXHBsYWluXGYxXGZz MjBcbGFuZzEwMzNcaGlj aFxmMVxkYmNoXGYxXGxv T8cuKaRfI9AeVMUyVtMc dCDuH7ddL7JzlQlkOCSl XGludGJsXHNzcGFyYWF1 oPSjnsTkaDwotUusoP9o ZjBcZnMyNFxwbGFpblxm MVxmczIwXGxhbmcxMDMz QUkdC6guKyErBALaxWhz OBrqz2HmCYJrFNQwNzgt czIwIDEyLzEzLzIwMjFc rYozaQ6aXgGxWaXhFLgd GT3aVIVkU4pqlRMqDPHz ANVpM9igScGdbA8ptRcm MVxjZjJcZnMyMFxsdHJj uSpxXAljJEBsfiQjkT73 Ktraq8GjCQMzKZP9WTfj MFxxbFxwbGFpblxmMFxm tvR1CYAqLOgxIQCwFWVt MjBcbGFuZzEwMzNcaGlj aFxmMVxkYmNoXGYxXGxv Y7fuOpOjR3CbCJDnItAe TD1jVB7vYZKfPADyKSnf XGYxXGZzMjBcbGFuZzEw MzNcaGljaFxmMVxkYmNo WBXxSXkgF7kiWgCuS1Wk QKGtCoEuzFVcC1acM6Nc bMeoazFkdXupf9qzcQDq LMahs5IeikEidFucVCKp XHFsXHBsYWluXGYwXGZz BxKpxBjddS1iJuPvKvOb ADvzIJ6sPDSrV3gwtIKy DKFhHIWiS1dgWqZkmA2c aFxmMVxmczIwXHBhcn0= Diagnosis (test code = x1txuBIyUCEkuVO8QnEm 34) UAVwv3ahz6JheTDrrXGy ROqurNUnbeUodf69pKD4 uY94XZ8oIDLcQiP7CKQm frQ4Ljn6NSXqNQRdfNZw M901h4vvh7dvlfWjvDG1 RDStVAMpJ7KoJF3gIHVo jSUuC69uuWHjEQR0DLMw LBYboRCeEYLqUCK6LXMj zUYeQ8isGBTuFI6kmkix SWpyWRtaOWSqoJT9MKOt yIEnJ0OiXVHaKDovEMHd hgk6CmLiFc2clISuuMkj MFxwYXJkXHBsYWluXGZz ZmFoX0LfAPd4qDZfOA4a ZGUgKGxlZnQgdXBwZXIg ltApdlqhMYY6G6gtaC5r FTbwMuepkBQ8JmfxEJTw T4PkCBLpagfedCtsOVqi pQ28ViZnQIeDZwCXDZHE QVJHRSBCLUNFTEwgTFlN UEhPTUEgKDcwLTgwJSkg IO5KPTOIGQuKK7CFFSWa TFlNUEhPTUEsIEdSQURF LPZFMLqbNU1mMMBhBQKs yzwkPKElOZxmKA1fe6Py RVKrFQcjsgVyECehpu6i bmFsIGNlbnRlciBCLWNl xTlfaX4obQ5nuPgavk43 iEPaBTNeFJQTdO43OaGx cyB+OTAtOTUlIFxwYXJc cGFyZFxwYXJ9 Comment (test code = l2aufCAkCGMdhBW0EpOn 9835) CVVfs3srz8WvfZTkuCQd WZyqzPGwdfOeqy15xSX1 lD92BK1gYZZqVfD6XAZp slU1Ibf5YPShRSCqkMOk J257h8xrx1iaiqZhdPP3 cNxdLFBvffswMoR4NEyd SERyatwdAGv7HNhgIEYd gIC6HJByjQQlT3NiDTWf NM4tyvc5LGZ8YVtoWNHg IoV9JFWnmEXeQIMpfTmf LUitv444QEV1CeAgNXXf abNlrQfmaY5cJaCqJIHX cLV7f6htD8ouPTTiT3Ng e78cVCKpc9dgeMpmbBqu zu0kGNBygxR5qMboyWN2 pREwDZBtxAe6IVJ9uMXb DKovLNEebP1afRVop40s hKU7OFn1PEYxkJimT3Zc TSC8IId2gHPbk18yBaPr DH5zlNAsSdEbWYZcFWFf BlF0rBVwpqXlyHjlc74q aGFzIGEgZGlmZnVzZSBw BQY8RMSjSSKnwQEjsQhz iwSwATUeYDDcp25hMb5s bGljdWxhciBhcmVhcyAo MrRjMePzIJ1wNx71gKE3 aGUgZGlmZnVzZSBhbmQg Zn1aiYkzaSsvmkVmdpVt mzQrerUiP64ztP3oJRWm w8KdsTJqV4FtcqTwcZuh o9OaOpWlNJgibmA2qZTv TKWpGXD8lrKuHSPfzmUu g2NoJKC5ov1oHWAqxPJr sA7jtN09zIVdX8MtxRBl QGEzHSItLLBtyyIvTV3j ET9afU88oGCjMmvzcFKn yoPqrmEaBPMjcOe6YXzu VZ64gDUcZVKdBDVvNWSo aWZmdXNlIGFyZWFzIHNo h1rnBHEvwLHdtbjuy1w2 REQjcRRgjr7eEMgsulFq bGluZSBXZSBoYXZlIHJl jtlgh3KgKYqocQHps3qv t6DjZ6yrwSsdZUisi8D7 AZddbzJcMZDlp0NcTGMb UJndNWsoCCAsHD6iFGRv cPCwd4IcV1wlQH3bBBFw WWKrBQ3ocWCnaCtmHHPv oEqzQRHoUXFsi8DzaSk8 LGKgj0DhR6JwYJefO3Pl JTexY4L6DqMrh9Rismpp HMUNUUirldHaa8csMUjr QkNMXGVuZGFzaCAyIChz uOCnlugsLZMBF3iaTB7a VBBpNCObQY2sMN6ELXVf AWDTEKkiHO1sRGLcRMGr UEysrRf7ZGGjt1LnP5Th LCBDRDUsIENEMjEsIENE KuAwGZWfXIHuzOMluS8l DAJnCFEnXOLfzqQkUm4x zDXbcRMajGGaXqIkk0Qh G3HoRXZyjJ18weGom03c GIShtDjuY0GkXCZbQVPj ZHJpdGljIGNlbGwgbmV0 f63ct6Omo6s1aYhrYHWs YDXui7kpvXS9cRMlOPJt hHAtsuMgdFGnIoT5wQSs aiHczBubj20gMUMiDOMp efLdWl8qfTYlsVNkpVVn BxFbx3HpR1epSqpwu6ui t8YzFCUdms2oyMZcvqI8 yQ4aPYAdrLHnf9NlCZPp OTUlIGluIHRoZSBkaWZm dXNlIGFyZWFzIGFuZCBp dpIcf56wOV9iYQWoRCGx g7zffYP5jOZxSPHbLOJe LiAgXHBhclxwYXIgQWNj e8MtaP8bTFBjKUBoSXKi dRJazIX7NQQadjQjd0I5 GCZscpNevUZ9ULa6IvBm XLl7SSHzy78kEI1vwAim iNPpa5dew1AwGOBqISDm zUdlSL2cw5KvKVFuJOss WH2dV0X6fFSfELBqpjFL tVU5POurDQJiQKEubOOQ RGEkPOWeeaFkMFJfD93z UIGdKd1COWuQQfNCWD5k VGhpcyBzbGlkZSBoYXMg ya69QUCiBP6od7FikDL1 zfN8wbEkk1EgrqR9rCW4 KlaqcH1dRJvkqpFhBDRo f6JtvI4tKHOmGBZzDSCs vDMhhKI3SCTwqxAmc1P0 UKUvhN17GFD0eM3tRDJj gPVheX80gy4btYNao6Y1 gMwlULJ0lOVeLUEle2Wh KDNlQAAqd4MhQFDfi85q GNUqEJnvXHK5n9ZmceBm u49yh5OfgOyxwxEoqERn fK0dmo8lKXmxDLWwa5Cz wBLbk9iag9ArLJZaETRp bwHqdpFmAs4mLIixXSWm mJImPDPrp23vaJ7alOUm rvJqJn0rSP7hoo88kFQy HqTcQJ0nIBYhQY1hDYXW JRPhIX1vNGRaaIInl9Ot jKgbQgTwDgXnc4FukTra MBZ6EE50ivMjqxSycFyz RS2sFMwqRWrhldFhzs20 RBKnAS3kt2RktAKlHSVa wCLdVQKgBDFyt1smW6c8 b75rhYO8KJElgP2hfJDf m1CjivK4yHH7GksfrK6j GTdjzjTqEAMeq1SryT8a IHRvIHRoZSBzdWJtaXR0 SSPzsiBld6R1TXSxsHWl isNeM0FwX0TmzH3ii9f6 jVMjxRWucDPzapP8aZ0d IChGSVNIKSBzdHVkaWVz XRwljoHls7MhSFIqIBV5 kzZsi0Fen2JnJs6hLSfk CS0DH4dqNTHpWGjzJTOT TDJcaTAgIGFuZCBcaSBC N0v5AWydRQYsVXJuizOo P7VqTI86rh7fO5Ydn4yq wWBmVVF1YMD5NRYhY35s oOWpDyR5xYR2CHEtoX5s fH3kJFKnandkKFUyuCDu BTMyW1ynrUIgkRRJsUFi X3ZyKp69RBtfWVBOWCPq clxwYXJ9 Disclaimer (test code = n3tocGAhRVXroKAbBbZr 9844) TXTuOLUdm2rgFBYqdLUr ZzEwMzNcZnRuYmpcdWMx HUDwThPwl0dhr418hLCm f2ieDDXuBwH5yLIvBOCk aPOdY146UPLfXXycl7tm t0FyKLEweZKsu8D5XAXG rrfdaOb1pOdqK33mq7P0 YebbG1prPGZnKPEuS5Ob EG8iNJZjWbs2OTL8RSX9 RBUlQHZyV4NrIT3xAJLq pFBfMOi3q4gtwAjiGDSg IEE4y7joAQxzrkDvLO1r wv9zlGg2s9niqvEaQWMd TFHwbUYZUNNuP0BcaWxf Fr7rkZy3bAexVtwdMEN6 Gnb3ET1eid61bht1pXvo APNwjylzRbF9QYmvGUSf juufISu5XOinJDEcdRC9 TLNhjDKqY0WqICHkDP6t wdl3CFO6HLgoNFErKfC6 NDBcaGVhZGVyeTcyMFxm t927WBX5NaQySB2lK1Il a0D9wV2prARfKCUcdZQx OiZpGQHlpr8ztEBxSSua n0KjBWJ8mbM7tZHqeIVg CVKuSS05Cbpxi7OnQytz PRD9LTXrpgYxb3Ulk8mn PfFcmqOqT9stX3JbIFAa MKEcUGZzMiIsenKxk1Jb q8LrdXJlbAk1e0jtGWQv TVNvtSqda5glHMO0LOUy R9H8iQRdy0jzJVvfQPKr bQW1dnX7ZVUoiHFhT4Ja bA7pGDYbXL6codr1c4je CMG9AGqwEJDxLhX8gzH5 NDBcaGVhZGVyeTcyMFxm k316TNW2SzVrCVOrl1Jp C0DweLlzZ21huOrrZ87k RLOmaTuqtK1mxMjdzS9k ZjBcZnMyNFxxbFxwbGFp ldxvYJytiqP3CNnwsgpf NDXeUFegG7tmGmKaZIVj sXolYGmnw8RlTLYsIZTh SdgwhiC3GIINh87zCLOg w1MmERQgbI0xyYWwTIdn mqGebIF6LJmvuxSiMdWp sfCoUIMtpF3hCXDiIW7t QNJizmQoew7rmmRjGXKg SMNiN2YmpeglqRtelrTg BHRefi7qduUjRLU0OHOA DB5LXFDmWLUcv80dMEEk rYxbxD9zpTAchlGzAIIj i9DwiI2dnPAGAGTlB7jf AM6kAGbcd8HgbSXmhXWe xWK9KERwz3UmUxHhwnJo rLOlzZZiJ5EefGxxX6ki FBYeTBYvpaOufJShn5Av XJShvYF2wPZrAZ7VKrYH a05pXVWmRKHDcsCvLQNp uIgtbJV8juC2jQ6kAmUL ZiBhcHBsaWNhYmxlLCBj w532fg4ctyR6LSXwMJDm tstye3SvOIDaVEDspY80 AIPjDMKtxb3xkhkrrZIl lsDkN1Pnukj8nJ3pPMEp YWluXGYxXGZzMjJcbGFu ZzEwMzNcaGljaFxmMVxk FpNsOLRdCUqiD4azZcJu ZnMyMlxwYXJ9 [facility] [place] [place] Interpretation 2021-03-14 14:07:55 Test Item Value Reference Range Interpretation Comments Materials Received (test m7jqwWOyZHRdsDDuNcPl code = 9973) CZNeQPQag7osWAEooUHx ZzEwMzNcZnRuYmpcdWMx IQQxIcYhh4upw681nPQe s4cwZCAuZpZ7kOFyJWIn qYQaQ507BIYkFWayd3wy u8JcCQBhbUJbs1S0ZNHA yenmsWx8tEkaD43sq7E5 KpyaJ8zzCYGvWPBnL1Dc FD4qOEBrUiy8WAL6MWS0 CCKcRYGxW9ItUP4cQNXn iGNuFWt1t7bcwDxxTHCm MRA1v0zdTJzsxtQiJD6k nz0nzIh9v7ihklBlUIJw ARZqkNXEFZCqZ9LwpPqm Qg1zxZi3kFspAennNAF1 Rrx9GF9rxd58tln5pGlk NFPnvidvThP8HEcbGXDs jgycUBa5XKhyMRNftHrb MFxtYXJncjcyMFxtYXJn nIL6ECCqvUCoE9UrBNYm PSiqMDEpimp3BzTiDy1k oTIavDiqGVozm9xsv2su cDSlQvw2EPUwDbPjVcpj JLexa8Rzf5umKEOtva8u GAG0gRQapNycb8J5sEOg SXHztJArvuUyOSYxzo96 oKFlrVIshZPich0dzvFw lCYgcHZaQIO0mBZfwrIa GNRsmXRlICNyRQ0sgYAh VOOfsI5dfdfaVXSpEyMl yfrrCUXdlHdkrlQbZl5t jIfgHRA6KZggN8gehX8h VwU0ZMxmF2gnbN2uIOn0 PXgetAX2EIPzwV2tIY5z kdrgt4jxHcVpGL2uyunn g7woLtPwRJ9kmru0e4ry VCG2RNtsNHBlEpX2hgO6 NDBcaGVhZGVyeTcyMFxm h113VKM9UwFhWIWeu9Qw I1RmbGqiV29tmNqhS89m IVRdkJaepY9kfDzjcD0d NqTyJcEbFLb6qa58MDq3 olsefCzvFQk9oyJxRLMr ABN1WADrzXBwWKDsF0r5 tgEiCZYpLAU0EKGjhNOx VWGyP5q3baHaFFZ1BYo6 cnBhZGRmdDNcdHJwYWRk YjBcdHJwYWRkZmIzXHRy uQHvpUTrzVRdrW6xrBtm LBHzpDQmaD7yFIJ5CGDj cmgzMjBcdHJoZHJcbHRy xq34YGCrpzYgtJOnbFgy lWIyTLR7EGBgMBOaAENl YAA4TIHoQhUvqzNlQBpg bGJyZHJiXGJyZHJzXGJy SNX8VVLhLdFlkpUcIXja bGJyZHJsXGJyZHJzXGJy POO3WSLmUyIynyKsVNep bGJyZHJyXGJyZHJzXGJy EWB4MVVyKqXykhCbADgq bHBhZHQxMFxjbHBhZGZ0 Z4xlpVZjSSYnVBmkoIAg NNJkL6verFKiKMlyZVRo cGFkZmwzXGNscGFkYjBc R1axMZIzUjJqI0MkcOf4 MDAwXGNsdmVydGFsdFxj rDZyKOB2NIZlVEXdZCPg QRS7EKVpUxPyplIhERcx bGJyZHJiXGJyZHJzXGJy SXN4VXCwUxEskkTyXJxb bGJyZHJsXGJyZHJzXGJy PVZ9DDAbQxHabsSlKTxb bGJyZHJyXGJyZHJzXGJy NZQ1CLTzOwMtseDcCIho bHBhZHQxMFxjbHBhZGZ0 V1orcGItJQJjBMbriPAh KVLaB4nduMPsDMeyEYGu cGFkZmwzXGNscGFkYjBc Y2rzGOVvZzOpW2KxgPn9 NjAwXGNsdmVydGFsdFxj cSXuWBM5FXSkXDNgSZNi GTG8ZIVxOaTzrrChRMin bGJyZHJiXGJyZHJzXGJy FJO4CDJxJnHvfwZbMNdl bGJyZHJsXGJyZHJzXGJy ARR7MWHjPyYiuoTmDXjo bGJyZHJyXGJyZHJzXGJy OMR1TRFxApDcmvPwZIll bHBhZHQxMFxjbHBhZGZ0 Q6rbcTOeCGNrPEelqVEe QOAbY0ayzZHuEHfpHLAr cGFkZmwzXGNscGFkYjBc Z8asOAWjIlTiR7ZlvHl5 DmDyVYZqurVxvY64Umxj a1CxSYQmRNR8TBawBQra bFxwbGFpblxmMVxmczIw KKsnqcofUIOcWGjbT0cl FrMqDFHzdIkqHPuee0Pa XGYxXGNmMlxmczIwXGIg PQMdXIBpuN8oUmkvP6Ti oV2qPSyuEqagE8fmXIUo z6KdyS9pOCdelSXsqfsz MVxmczIwXGxhbmcxMDMz AVqgP3fqRkUaQIImaTmr YEgse3MsLHJwOQOiLcjg nhShIGm7eaWfKHZiwJpy lVOdXMslcnMabTgvo3Dp psLuaTbnELUvUCv8lmDj shdieYm2pYSooVzdHDRn jUfgpG2eBzEgRrRgGYlm bGFpblxmMVxmczIwXGxh seyjZBDiUOzeP4nlSaEt NFYeuPhlJEgsc4OcXPQr WTYvQoqwfiQeYJUlL00a bGVjdGVkXHBsYWluXGYx XGZzMjBcbGFuZzEwMzNc aGljaFxmMVxkYmNoXGYx ERfiG1dtOjNoI5SkFEHc MeThtRJjG5zrP5MnzIwh YXJkXGludGJsXHNzcGFy MNL0mZHtufBkgLCwyUBq CGNsVKpfKWV4fJPxcvfx oXJkbtlqCHkdpnC9BMSt YWluXGYxXGZzMjBcbGFu ZzEwMzNcaGljaFxmMVxk QoNuBYNsBXfyU8pcEyIl I4TiEMFjAfSwDkYHWBCp aXZlZFxwbGFpblxmMVxm czIwXGxhbmcxMDMzXGhp N6wyPyJjQJAcmGyyKRte z5SoMNQfTCPgVrqnyoUz NLu0hqEtSDQekWqbyK18 Keixlq57FVFuu9tiEFTz H7AfqORbHQSaoHUhBXmc MDhcdHJwYWRkZmwzXHRy cGFkZHIxMDhcdHJwYWRk ZnIzXHRycGFkZHQwXHRy yUWuNEV5T2s0zmAwGJCf FFi9xxMePZCuBhTomFFe CQF6WGk4VtltagP4oFEq Z9w5RoxzxgWnKLgbqUGd vn29HPOhbiOdaANarIgc gDNrQTE0LVStKUJfBSTg GHE5XNKlRgUpnbLiMXdo bGJyZHJiXGJyZHJzXGJy UFY4EAUaYvNemzBgKEqj bGJyZHJsXGJyZHJzXGJy ZFB4TDZrLmSnruXeMHxg bGJyZHJyXGJyZHJzXGJy GZV1ZGBoBdZdhfIeTLlr bHBhZHQxMFxjbHBhZGZ0 X9mjfSMuAJRtWOhhbWRf KYVvK1fqtXGlHFzmKQBo cGFkZmwzXGNscGFkYjBc Y9nvTCMvDqXnL9GnyCm7 MDAwXGNsdmVydGFsdFxj tYHeJUX0VBSeYBFoIRJo WTZ6HNTrCaAhyxCoOWnf bGJyZHJiXGJyZHJzXGJy SQR8JSRvYoNkdgJzKNqq bGJyZHJsXGJyZHJzXGJy DJH9GDJdSnEojiQbYLfs bGJyZHJyXGJyZHJzXGJy QVK0ZIEcCnGeyrDuPSoq bHBhZHQxMFxjbHBhZGZ0 I6ueaVInHEViZHaufSNk NKGtR8qfkZYiITnoBJEz cGFkZmwzXGNscGFkYjBc B6toVEEcPpZwG9ZgkBx7 NjAwXGNsdmVydGFsdFxj sIByMOT3NLByPMYpJVAm RBG6QHJuVeHdkqFrBXsv bGJyZHJiXGJyZHJzXGJy FTU8RHYdBaYhvlDrCSit bGJyZHJsXGJyZHJzXGJy JQC6PSIeZbGeuyCdJGac bGJyZHJyXGJyZHJzXGJy PKP8XKGpMuPtwpRtMYgc bHBhZHQxMFxjbHBhZGZ0 L4jxrJYkIDIaJTcfpTXu XLHqS4utsZGhMSajIEZs cGFkZmwzXGNscGFkYjBc W5nkLJHmUlEgJ1TxwYh7 XmZhFXHqliMtcG25Wwzc m8GsDIIcPTT1EJmcNZgm bFxwbGFpblxmMFxmczI0 XHBsYWluXGYxXGZzMjBc bGFuZzEwMzNcaGljaFxm OXuvYuRyEEJmUQklI3qv CaPuX0DqZXNoBiXqPK3a VkQ7DJJeHQPhGORlRBMJ WgxgJZGVKY3CI2PfRXZg VVNTXHBsYWluXGYxXGZz MjBcbGFuZzEwMzNcaGlj aFxmMVxkYmNoXGYxXGxv P9fpUhHzY6ZxDECkEpPy cTBmD7lhL5KpjHhmTKUw XGludGJsXHNzcGFyYWF1 wJTcerPszNoywJtacY4s ZjBcZnMyNFxwbGFpblxm MVxmczIwXGxhbmcxMDMz KPdmY1sfDxKjYKWcpNzw DAkid0LaMTSwBJFhDgrl czIwIDEyLzEzLzIwMjFc wZrvzQ8vHiJxDlIwMKip RK3uBYFhU1rgzHOaADXy TRUbT8pfIeHhmO1tvUnn MVxjZjJcZnMyMFxsdHJj vFrfVNhtPEAiwmTpzC41 Ceois6TeTHWrELR7ZQoo MFxxbFxwbGFpblxmMFxm tpG9XNPgTNqnTREiAURg MjBcbGFuZzEwMzNcaGlj aFxmMVxkYmNoXGYxXGxv B2tmClEkR1XaATEzHfYv UU5aZH6nESDkIZLnUBrr XGYxXGZzMjBcbGFuZzEw MzNcaGljaFxmMVxkYmNo SURoPWarQ9bgCdOuF5Kz VHNaRjSfcVHaN9kpR9Xf eWxgbkHfcFeug1sauFGl VVxhq6TgebUcsZptSAKt XHFsXHBsYWluXGYwXGZz WpIenTuojL4vRhDmThSx EUqdDS0zTUDkF2swgDXs HXWgLSZxX0jkOrTjiI9d aFxmMVxmczIwXHBhcn0= Diagnosis (test code = i1lnfRNaEBSguEX2GwKu 34) KZSzr7clb1LwtHYwwHFj AJwxaSAfxdOstp55rAM8 gX58XT7lLAFmPqI2QAYm zvK4Dwo4ELTcXVWlcWSz M605a9tuc6mnfiJkuET7 KDPxXUFfU7MdEQ4oCVFq vOMhU90tsLCeCEE0WSWn OYNanBNcPGIbHXR6ODXv kMRrH6xrOPVzTI6racua VMwuQWdkGEMcvZV6BJGa gULeK1NpENJbSTzzMLGs qmg3XpSxFl7xwSRlnNno MFxwYXJkXHBsYWluXGZz WdOrZ1KfJMq5uNSeYI9h ZGUgKGxlZnQgdXBwZXIg yaYrwsipQDW8P0bryP2u DPtgYuamjJY2QmeoLJZa T3LuDTVweksgaObzRJsv uY91ZtQzMQvODoMNKWIU QVJHRSBCLUNFTEwgTFlN UEhPTUEgKDcwLTgwJSkg JL8UPTXCVXcAP0OFRZTw TFlNUEhPTUEsIEdSQURF UJSJEVnvGN2aRNRzSTRx aqtoAAZiCVnlJH5vs3Yr DNUtNKizdcXuKLmbab2r bmFsIGNlbnRlciBCLWNl tFzcpK3pjV6yvWgvfz98 zSMuENIoWUVPyO52RbXh cyB+OTAtOTUlIFxwYXJc cGFyZFxwYXJ9 Comment (test code = k0kdlKIlHQAkpFG5AkZj 9808) TLEdq9klv2EovOMddQTs YIpyuIQtmxRoli41cFP8 vK27OW6vMRAdAhF3TZKc bgF1Qqb8IKWiKXHjrFYs M832y2sbf2mcsmVimMT7 rMasJFBtdxybCfO7OBsp MTEugkeyTHp3QJywLUIb zCD2ZPGstRJqX6CjRLRo BB0cgbw0XJG9ADffHZYf RqX1RROblXUmORMvsBxj VBmoa537CIX8XsSiWOCh qpGzhBlaxL6bYzPdVGPZ vMI5z2xgX0tpJAIhC3Eh b54oNVFmt0lbdGpciVld wx9xZLHbcjW1tHtkhEQ4 pOIiLVFkpEn6QPG7gIZw JPwuTESnqT2zsTAwf69w yAL6VQw8FUWwbPgcT7Lz LNF3LRn2eTBfj93gDsBt ZN8roQFqXzNpBGKcLYVi OlO6cPMigpHjjUnrw28t aGFzIGEgZGlmZnVzZSBw IJM6RGLqNPEvdVQbpJit bcZwYRJzPWBpw91kVo4f bGljdWxhciBhcmVhcyAo PeXbPlVbUO2oGa07uXL0 aGUgZGlmZnVzZSBhbmQg Nm8clSzugNqeucKurfVk jlFddtUgE07dbN0wJYWl q5JhbZBhS4OxqgFghNam f7RfQdEmSDxevlA3bZJm NETdJFW4fsLfVMKzyeHx k0FnYHM8ed0vFWBfzMVt iV6vuC69eLQdZ4ThbGHd KZKkZYQiKMMrhnQnCB8v FW8ehF52yEFvLnzqmMZc dbRrmeGmLRIcaEk5LApi WM20qAZdFNBhLQOuHWIv aWZmdXNlIGFyZWFzIHNo s2cjIVGgdMHcufxwy9z2 DGSttQSrdk2pHRqrywFy bGluZSBXZSBoYXZlIHJl zojcl8AyHHiftALib4as z0BfJ9isaPifYRsli3X7 CVdjjvVdQTCpi9KcUQRl XFuyTOlpSXJmWS1rJTQq qYNbu2FcT4mmPG0gPKTt JZEuPE5hfGLwuLefINVz wXcfLBHjQCCfv8WmaTh4 FHJkh8HrB9NkDCukD6Kx CFtzK4R7OdDvs4Qqkivg YGLVSJrpheJxd9duEOuu QkNMXGVuZGFzaCAyIChz jTHfesqmMZZYR8ddVV3o CWYgKOSbUF4xUD3IJIQf GYPKWLafHQ3cPTFnKAMk XWfwpHg4MFLrs2RtE0Fe LCBDRDUsIENEMjEsIENE ZpKyQXGfBQYndDBqqV4v AIGlBRXjJSJidmLfMp8d dKJpySFbmVMjCiKay6Wh Y1IaBTXunH33jnMyd63w RYNglWadU1AlAYSwZEBk ZHJpdGljIGNlbGwgbmV0 u17rs4Tbw1t4gVlsDYGh SWUwl7svnCG2lMMgFKLs fRXgemBetTVyXsD7dEDp alHylUvkp11xRRAwTDSr knMiCh6shOQlfKKbhDOg QaYzn4XuR1gjVinkf9pv v8NtQIEpop7ghERzkrB4 iT9qXGNzoZUqr8PbNEFb OTUlIGluIHRoZSBkaWZm dXNlIGFyZWFzIGFuZCBp eiKcm30zSV8zELGsMEZz r6mllTT0uVVjUYPwWNYp LiAgXHBhclxwYXIgQWNj k8NhpL7dWEZeNOYjQLKe xMSrbJS6VIOktiYdf4P0 SIIfzkGpiKZ3XBq6UhFh UVa8EZVwb87pTU7zhRqg jXAre2nan4LaBOCzXUOe yBpmYH0re9PlRIYlYHfl DJ9aM6B7dQCvNPLnozVM aMN2GWqjDDUrRDYkwUJO OYRmDEPyamWdDYUzZ58r UPTiPx0LPLxINwOWCQ2a VGhpcyBzbGlkZSBoYXMg hg29BCLjXW9ow1WnfUX0 obR4npJdb0QpebT0cHI1 VganuW3aXGlsjeGeATWc g6IdoN0eUTRpJQQlXWZw gUKwyHQ7STNdouQso1P6 CDIggN64RFM5kB8dOWPe gWYnqC12ti3doIQru5F7 pXxtODO2iGLuDZPlb1Ua TURwUPTed9UxPYYgr39s FDYhNDpfQOC0u1ThkiWc c73ug3XwxNdjzqMzmFQe oP9aex5cHYqiJXFns1Wt jJCaw7hqf0BxQLLcDGOt arVxetJrUd1tRHsuGTKi xISbCESko22mwV3xoQFl fyFkVq4uXS3gpv34aZKc YbAuRO3jSQPkVW5oXDVT VEBqKD1cRWHxuTYhn4Jy eMcvCuJfQsQve0QcqDlt ICM5YK40riAhhjSduYig MF1wXHhtMSbqduYjjd39 GYNxAA1bq7SzhUZzAIKu mFDhGRWyRQNuk4xaR0d7 u61ehKP7ZVOcsL8lkTRa s6QbxbU7dTL4LnayrR1m ZEtkxlBlIZPvp3RicW0f IHRvIHRoZSBzdWJtaXR0 ZYHahkNjn0I7IPCbfJLv eiOaZ5BcN8LjsP4az7p9 gYFcmUOwtVAnyuP7eI9r IChGSVNIKSBzdHVkaWVz MEvpufRja3MnRZSfBEC4 gdBdz9Nls8VnSr9kJBcl RZ5ZW4qsCYDkRRybGYCE TDJcaTAgIGFuZCBcaSBC J3u7UDaiRJJkVMFtyfLg N0XjCN02pt0rW3Unb7ht mXXfIOH2WKB0ZGZgP83m aEZfEsB3bXR9WXZnaD2g iR1yYOKriuftRJMzfOKn HEAjA6xtqKTnmVSBiTPt Y5GmVd36FVgbZSWOOEBw clxwYXJ9 Disclaimer (test code = [id number] 9844) ZINaSUKsb1xbRSTlpLNi ZzEwMzNcZnRuYmpcdWMx ZWPtSwUfg5zmb388mLTr s7buHAZuBtA4rKFfFLHf uKUvG825EPBmPDoyg3ei q3BfNSHqpQZlp8X9TGLW thgwpUf8lOadJ05ou0M6 PxlrQ0jwHXFiAJSeK9Pv EG5cCPSfWzc4EUU4QKK2 UFUxXPYaV9PkMC3mDYEp cYYjSBc3a5gllJsmOZVt YGA9d6zjXKqzdfCuRS5p xq9euNe5d6knqdWcLKJa FMMyqCPBVUKyM0CvgYfp Iv2ldGx5kLkfFzesDFR5 Gpg2CL6ycn02yke6tAcj MHNujzfvItQ1FIksSAUh tiljCGb9DSttZNCcmTF1 VPZilCIkO6BtDAJsPA1a qcs4ESB1RGucRERhCfJ5 NDBcaGVhZGVyeTcyMFxm y384QGA6PaZyPE9hR8Bl t3C0hO5mdBTxYPUeoHMd VwZwNOItog3hkLVrFViv m9OdNKL4rgH9yAHyxSDv OBIwFQ26Ghfpx5LbZkjq REW6LWNdacNst7Rgs9xz IkPjrdHlY3yfO8UsBGNy JOMsXPIfYbJtwcTat8Oh n0KyoAOowEk7u6urOJEm KXRbtQbog4krAZN9VMEs O7H9yMHih5eeLGupEXGa lYH2qvB1WPCrlUCxB4Hb lO9cLKHcYG6uuut6k0qc VVY9ZYmqEYGxWpN0otC5 NDBcaGVhZGVyeTcyMFxm a826RWP6UoWwVNZcj8Ut Q4CabUpyT76xuGdyQ62n EPAcrSvzsX4psVsrsH9h ZjBcZnMyNFxxbFxwbGFp zgbvYRhcyiG1VFiwahea ABTwXGgsP2fsHsBgCGYu tVnpWVwoa6RxDDWrNGQc FcmfcdK2EREFb40dPOKr q1SgKXTaxM8brDLtCLgg leCavSJ0CBzitbJyUsLd dpZbXAXwqZ5xJKHeBX6s XPMnnsPahb1rawPiTXNc KHObR7IqrkwadKikzkLu HMGpik5miuWnSAF5NOEP QK7BHJLkIOZkx95bWUEn tDykeP9vbDQboeVqXHOz s5CwdA4ivWTNLKOeM8wa TV5gUFnde5CwnSWmxJYp gIQ1JJHoh7FrTpWxbsEh kNEnqTXxF8VdlInfT9bz ECSbOBEqmnIjfWUrc8Dg UJHxnNB8xRCkRI0VPtJB g14bBZSnYWONapTiDRSo jNqhwDA4egX2mP7hIsRY ZiBhcHBsaWNhYmxlLCBj e240mf9patI0EJHxGWOz xcfrk3KcMHHoTJXhkI13 QWJhDXKdkj8oqguaaBBo rdHbD3Wpurq2mX8mTEMa YWluXGYxXGZzMjJcbGFu ZzEwMzNcaGljaFxmMVxk AuThSREbAYbsM3zjHzKi ZnMyMlxwYXJ9 [facility] [place] ([id number]) 2020-10-02 04:58:30 Test Item Value Reference Range Interpretation Comments NA (test code = 138 mmol/L 135-145 2200865902) K (test code = 3.9 mmol/L 3.5-5.0 3306921115) CL (test code = 102 mmol/L 98-108 8288091307) CO2 TOTAL (test code = 25 mmol/L 23-31 2933703518) AGAP (test code = 2-16 9675218992) BUN (test code = 20 mg/dL 7-23 4794213095) GLUCOSE (test code = 96 mg/dL 70-110 3786133276) CREATININE (test code = 0.56 mg/dL 0.50-1.04 9339697208) TOTAL BILI (test code = 0.8 mg/dL 0.1-1.2 1879742698) CALCIUM (test code = 10.2 mg/dL 8.6-10.6 7434365443) T PROTEIN (test code = 8.8 g/dL 6.3-8.2 H 2830017658) ALBUMIN (test code = 4.7 g/dL 3.5-5.0 4216707940) ALK PHOS (test code = 99 U/L 34-122 1394466977) ALTv (test code = 38 U/L 5-35 H 1742-6) AST(SGOT) (test code = 31 U/L 13-40 9949815046) eGFR (test code = mL/min/1.73m2 4909085794) SCOTT (test code = SCOTT) Association of [...] tests). Lab Interpretation Abnormal (test code = 53118-9) [facility] Test Item Value Reference Range Interpretation Comments LIPASE (test code = 9445609421) 243 U/L 0-220 H Lab Interpretation (test code = Abnormal 94852-8) [facility] 04:51:44 Test Item Value Reference Range Interpretation Comments APPEARANCE (test code = Clear Clear 5288257704) COLOR (test code = Yellow Yellow 7096665065) PH (test code = 4.8-8.0 9696733119) SP GRAVITY (test code = 1.003-1.030 3231742658) GLU U QUAL (test code = Normal Normal 3623997907) BLOOD (test code = Negative Negative 8065554726) KETONES (test code = Negative Negative 1308358051) PROTEIN (test code = Negative Negative 2887-8) UROBILIN (test code = Normal Normal 3770452426) BILIRUBIN (test code = Negative Negative 5281092665) NITRITE (test code = Negative Negative 5756653631) LEUK BAILEY (test code = Negative Negative 9910236757) RBC/HPF (test code = See_Comment [Autom ated message] 7560035068) The system [employer] generated this result transmitted ref erence range: 0 - 3 HP F. The reference range was not used to int erpret this result as normal/abnormal . WBC/HPF (test code = See_Comment [Autom ated message] 4078903439) The system [employer] generated this result transmitted ref erence range: 0 - 5 HP F. The reference range was not used to int erpret this result as normal/abnormal . BACTERIA (test code = Negative Negative 7091388919) MUCOUS (test code = Slight Negative LPF A 0391117896) SQ EPITH (test code = HPF 2262340327) Lab Interpretation (test Abnormal code = 34893-0) [facility] WITH [id number] 04:45:31 Test Item Value Reference Range Interpretation [...] (test code = 38.7 fL 39.0-49.9 L 49850-9) RDW-CV (test code = 12.9 % 12.0-15.5 788-0) PLT (test code = See_Comment [Automated 777-3) message] The sy stem which generated this result transmitted reference range : 166 - 358 10*3/ ?L. The reference r lenard was not used to interpret this result as normal/abnormal . MPV (test code = 9.4 fL 9.5-12.9 L 59530-4) NRBC/100 WBC (test See_Comment [Automat ed code = 7828282078) message] The system which generated this result transmitted reference range : 0.0 - 10.0 /100 WBCs. The refer ence range was not u sed to interpret th is result as normal/abnormal . NRBC x10^3 (test code <0.01 See_Comment [Auto mated = 0723145140) message] The s ystem which generated this result transmitted reference range : 10*3/?L. The reference range was not used to interpret this result as normal/abnormal . GRAN MAT (NEUT) % 52.7 % (test code = 770-8) IMM GRAN % (test code 0.20 % = 5186730758) LYMPH % (test code = 38.2 % 736-9) MONO % (test code = 7.6 % 5905-5) EOS % (test code = 1.0 % 713-8) BASO % (test code = 0.3 % 706-2) GRAN MAT x10^3(ANC) 3.33 10*3/uL 1.88-7.09 (test code = 9829372397) IMM GRAN x10^3 (test <0.03 0.00-0.06 code = 3023163380) LYMPH x10^3 (test code 2.41 10*3/uL 1.32-3.29 = 731-0) MONO x10^3 (test code 0.48 10*3/uL 0.33-0.92 = 742-7) EOS x10^3 (test code = 0.06 10*3/uL 0.03-0.39 711-2) BASO x10^3 (test code <0.03 0.01-0.07 = 704-7) Lab Interpretation Abnormal (test code = 24750-9) [facility] NOW RAPID TESTING)2020-07-20 00:25:44 Test Item Value Reference Range Interpretation Comments SARS-CoV-2 Rapid ID NOW Not Detected Not Detected (test code = 15407-8) SCOTT (test code = SCOTT) ID NOW COVID-19 Assay is an isothermal nucleic acid amplification test intended for the qualitative detection of nucleic acid from SARS-CoV-2 viral RNA in nasopharyngeal ([employer]) specimens. It is used under Emergency [...] indicated. Lab Interpretation Normal (test code = 62769-8) [facility]OL[facility] PAN[facility] ([id number])2020-07-19 22:47:37 Test Item Value Reference Range Interpretation Comments NA (test code = 139 mmol/L 135-145 6670651186) K (test code = 3.6 mmol/L 3.5-5.0 5526490955) CL (test code = 103 mmol/L 98-108 8072610312) CO2 TOTAL (test code = 27 mmol/L 23-31 7949721092) AGAP (test code = 2-16 6263287483) BUN (test code = 18 mg/dL 7-23 5613753518) GLUCOSE (test code = 98 mg/dL 70-110 6798934114) CREATININE (test code = 0.78 mg/dL 0.50-1.04 9699888365) TOTAL BILI (test code = 0.7 mg/dL 0.1-1.5 7134557622) CALCIUM (test code = 9.9 mg/dL 8.6-10.6 5938643301) T PROTEIN (test code = 7.4 g/dL 6.3-8.2 8820795880) ALBUMIN (test code = 4.3 g/dL 3.5-5.0 7875893932) ALK PHOS (test code = 97 U/L 34-122 3245664605) ALTv (test code = 39 U/L 5-35 H 1742-6) AST(SGOT) (test code = 32 U/L 13-40 2921024107) eGFR (test code = mL/min/1.73m2 5621002577) SCOTT (test code = SCOTT) Association of [...] tests). Lab Interpretation Abnormal (test code = 19799-6) [facility] ZjkotcDEQARGNSVC7625-27-59 22:47:02 Test Item Value Reference Range Interpretation Comments APPEARANCE (test code = Clear Clear 9283933620) COLOR (test code = Yellow Yellow 4102440177) PH (test code = 4.8-8.0 2949939626) SP GRAVITY (test code = 1.003-1.030 5948981313) GLU U QUAL (test code = Normal Normal 2182909227) BLOOD (test code = Negative Negative 6367204808) KETONES (test code = Negative Negative 3192107021) PROTEIN (test code = Negative Negative 2887-8) UROBILIN (test code = Normal Normal 3717772649) BILIRUBIN (test code = Negative Negative 7537939887) NITRITE (test code = Negative Negative 5744150182) LEUK BAILEY (test code = Negative Negative 0277372907) RBC/HPF (test code = See_Comment [Autom ated message] 3525047428) The system [employer] generated this result transmitted ref erence range: 0 - 3 HP F. The reference range was not used to int erpret this result as normal/abnormal . WBC/HPF (test code = See_Comment [Autom ated message] 3968029184) The system [employer] generated this result transmitted ref erence range: 0 - 5 HP F. The reference range was not used to int erpret this result as normal/abnormal . BACTERIA (test code = Negative Negative 1364040813) MUCOUS (test code = Slight Negative LPF A 1449277142) SQ EPITH (test code = HPF 9826141607) Lab Interpretation (test Abnormal code = 38951-6) [facility] 22:46:57 Test Item Value Reference Range Interpretation Comments LIPASE (test code = 5026751941) 277 U/L 0-220 H Lab Interpretation (test code = Abnormal 30936-6) [facility] Center[facility] WITH [id number] 22:37:16 Test Item Value Reference Range Interpretation Comments WBC (test code = See_Comment [Automated 4490-2) message] The sy stem which generated this result transmitted reference range : 4.30 - 11.10 10*3/?L. The reference range was not used to interpret this result as normal/abnormal . RBC (test code = See_Comment [Automated 009-8) message] The sy stem which generated this [...] (test code = 34.9 fL 39.0-49.9 L 32092-7) RDW-CV (test code = 12.0 % 12.0-15.5 788-0) PLT (test code = See_Comment [Automated 777-3) message] The sy stem which generated this result transmitted reference range : 166 - 358 10*3/ ?L. The reference r lenard was not used to interpret this result as normal/abnormal . MPV (test code = 9.7 fL 9.5-12.9 20526-4) NRBC/100 WBC (test See_Comment [Automat ed code = 5276746163) message] The system which generated this result transmitted reference range : 0.0 - 10.0 /100 WBCs. The refer ence range was not u sed to interpret th is result as normal/abnormal . NRBC x10^3 (test code <0.01 See_Comment [Auto mated = 6147739998) message] The s ystem which generated this result transmitted reference range : 10*3/?L. The reference range was not used to interpret this result as normal/abnormal . GRAN MAT (NEUT) % 47.2 % (test code = 770-8) IMM GRAN % (test code 0.40 % = 2179685686) LYMPH % (test code = 43.2 % 736-9) MONO % (test code = 7.5 % 5905-5) EOS % (test code = 1.2 % 713-8) BASO % (test code = 0.5 % 706-2) GRAN MAT x10^3(ANC) 2.69 10*3/uL 1.88-7.09 (test code = 1427899162) IMM GRAN x10^3 (test <0.03 0.00-0.06 code = 0438860189) LYMPH x10^3 (test code 2.46 10*3/uL 1.32-3.29 = 731-0) MONO x10^3 (test code 0.43 10*3/uL 0.33-0.92 = 742-7) EOS x10^3 (test code = 0.07 10*3/uL 0.03-0.39 711-2) BASO x10^3 (test code 0.03 10*3/uL 0.01-0.07 = 704-7) Lab Interpretation Abnormal (test code = 85981-7) [facility] W [id number] 02:46:10Postsurgical changes with anastomoses sutures in the rightcolon.2. Fluid-filled loops of normal caliber mid and distal small bowel may be anonspecific enteritis.3. Previous hernia repair. No recurrent hernia.4. No hydronephrosis.5. No free fluid. RL: [id number]: [id number] END OF REPORT Ordering Physician: JOSE RODRIGUEZ Clinical Indication: Abd pain, acute, generalized history colon resection,Crohn's disease, bowel obstruction Additional Clinical Information: Comparison: None Technique: CT scan of the abdomen pelvis obtained with IV contrast. CT Scanwas performed using ALARA principles. ? Findings: In the lung bases there is no infiltrate or effusion.The heartsize is normal. Liver spleen enhances normally. Gallbladder is absent. Adrenal glands and pancreas are normal. The kidneys enhance normally without hydronephrosis. Unopacified small bowel colon normal in caliber. There is been previousventral hernia repair. There is no recurrent hernia. Thereare anastomotic sutures in the right colon. There is no free fluid. The bladder is unremarkable. There is no focal bowel wall thickening. [facility], [...] hernia.There are anastomotic sutures in the right colon.There is no free fluid. The bladder is unremarkable.There is no focal bowel wall thickening.IMPRESSIONPostsurgical changes with anastomoses sutures in the rightcolon.2. Fluid-filled loops of normal caliber mid and distal small bowel may be anonspecific enteritis.3. Previous hernia repair. No recurrent hernia.4. No hydronephrosis.5. No free fluid.RL: 4400AF: [id number] OF REPORT [facility] 2019-03-29 01:12:00 Test Item Value Reference Range Interpretation Comments NA (test code = 140 mmol/L 135-145 7850158870) K (test code = 3.7 mmol/L 3.5-5 7882300409) CL (test code = 104 mmol/L 98-108 5923105395) CO2 TOTAL (test code = 26 mmol/L 23-31 2342676629) AGAP (test code = 2-16 3950649238) BUN (test code = 10 mg/dL 7-23 9338223756) GLUCOSE (test code = 99 mg/dL 70-110 5484388016) CREATININE (test code = 0.53 mg/dL 0.5-1.04 7580723006) TOTAL BILI (test code = 0.5 mg/dL 0.1-1.0 1183167780) CALCIUM (test code = 9.7 mg/dL 8.6-10.6 2558562524) T PROTEIN (test code = 8.8 g/dL 6.3-8.2 H 8829977859) ALBUMIN (test code = 4.6 g/dL 3.5-5 3114480279) ALK PHOS (test code = 126 U/L 34-122 H 5648269439) ALTv (test code = 63 U/L 5-35 H 1742-6) AST(SGOT) (test code = 45 U/L 13-40 H 0100161146) eGFR Calculation mL/min/1.73m2 (Non-) (test code = 5030005952) eGFR Calculation mL/min/1.73m2 () (test code = 6045718447) SCOTT (test code = SCOTT) Association of [...] tests). Lab Interpretation Abnormal (test code = 49328-6) [facility] CenterLipase, [id number] 01:12:00 Test Item Value Reference Range Interpretation Comments LIPASE (test code = 9771179975) 166 U/L 0-220 Lab Interpretation (test code = Normal 17705-9) [facility] CenterUrinalysis2020-01-26 01:09:00 Test Item Value Reference Range Interpretation Comments APPEARANCE (test code = Clear Clear 2948001742) COLOR (test code = Yellow Yellow 2037592311) PH (test code = 4.8-8.0 8952791089) SP GRAVITY (test code = 1.003-1.030 8332892029) GLU U QUAL (test code = Normal Normal 8976699793) BLOOD (test code = Negative Negative 5214955506) KETONES (test code = Negative Negative 4933444353) PROTEIN (test code = Negative Negative 2887-8) UROBILIN (test code = Normal Normal 8443843648) BILIRUBIN (test code = Negative Negative 9813057081) NITRITE (test code = Negative Negative 6921626824) LEUK BAILEY (test code = 25/uL Negative A 7965978106) RBC/HPF (test code = See_Comment [Autom ated message] 4391682821) The system [employer] generated this result transmitted ref erence range: 0 - 3 HP F. The reference range was not used to int erpret this result as normal/abnormal . WBC/HPF (test code = See_Comment [Autom ated message] 6775948681) The system [employer] generated this result transmitted ref erence range: 0 - 5 HP F. The reference range was not used to int erpret this result as normal/abnormal . BACTERIA (test code = Negative Negative 2089717664) MUCOUS (test code = Slight Negative LPF A 5425490532) SQ EPITH (test code = HPF 1844266936) Lab Interpretation (test Abnormal code = 71191-0) [facility] WITH [id number] 00:58:00 Test Item Value Reference Range Interpretation Comments WBC (test code = See_Comment [Automated 4190-2) message] The sy stem which generated this result transmitted reference range : 4.30 - 11.10 10*3/?L. The reference range was not used to interpret this result as normal/abnormal . RBC (test code = See_Comment [Automated 339-8) message] The sy stem which generated this [...] (test code = 35.2 fL 39-49.9 L 92562-4) RDW-CV (test code = 12.3 % 12-15.5 788-0) PLT (test code = See_Comment [Automated 777-3) message] The sy stem which generated this result transmitted reference range : 166 - 358 10*3/ ?L. The reference r lenard was not used to interpret this result as normal/abnormal . MPV (test code = 9.3 fL 9.5-12.9 L 32756-5) NRBC/100 WBC (test See_Comment [Automat ed code = 0214966895) message] The system which generated this result transmitted reference range : 0.0 - 10.0 /100 WBCs. The refer ence range was not u sed to interpret th is result as normal/abnormal . NRBC x10^3 (test code <0.01 See_Comment [Auto mated = 5222596882) message] The s ystem which generated this result transmitted reference range : 10*3/?L. The reference range was not used to interpret this result as normal/abnormal . GRAN MAT (NEUT) % 51.0 % (test code = 770-8) IMM GRAN % (test code 0.40 % = 1168141209) LYMPH % (test code = 38.3 % 736-9) MONO % (test code = 7.6 % 5905-5) EOS % (test code = 2.1 % 713-8) BASO % (test code = 0.6 % 706-2) GRAN MAT x10^3(ANC) 2.69 10*3/uL 1.88-7.09 (test code = 6080270787) IMM GRAN x10^3 (test <0.03 0-0.06 code = 6227132592) LYMPH x10^3 (test code 2.02 10*3/uL 1.32-3.29 = 731-0) MONO x10^3 (test code 0.40 10*3/uL 0.33-0.92 = 742-7) EOS x10^3 (test code = 0.11 10*3/uL 0.03-0.39 711-2) BASO x10^3 (test code 0.03 10*3/uL 0.01-0.07 = 704-7) Lab Interpretation Abnormal (test code = 21535-5) [id number] Test Item Value Reference Range Interpretation Comments POCT PREG (test code = 1605) negative On board controls acceptable with present C Line (test code = 3574) POCT PREG LOT # (test code = 3575) [id number] POCT PREG TEST DATE (test 10/02/2019 code = 3576) Lab Interpretation (test code = Normal 30437-9) [facility] [id number] 05:12:00 Test Item Value Reference Range Interpretation [...] SOURCE(BEAKER) (test code Urine, Clean Catch = 5856) SCREEN, [id number] 05:00:00 Test Item Value Reference Range Interpretation Comments TEST URINE (BEAKER) (test Negative code = 583) BASIC METABOLIC [id number] 03:20:00 Test Item Value Reference Range Interpretation [...] m DATA TO CALCULA TE ESTIMATED GFR. [id number] 03:08:00 Test Item Value Reference Range Interpretation Comments MAGNESIUM (BEAKER) 2.0 mg/dL 1.6-2.6 Specimen slightly (test code = 627) hemolyzed [id number] 03:08:00 Test Item Value Reference Range Interpretation Comments PHOSPHORUS (BEAKER) 2.6 mg/dL 2.3-4.7 Specimen slightly (test code = 604) hemolyzed HEPATIC FUNCTION [id number] 03:08:00 Test Item Value Reference Range Interpretation [...] 347) hemolyzed CBC W/PLT COUNT & AUTO [id number] 02:54:00 Test Item Value Reference Range Interpretation [...]
[2021-10-17 15:36] LABS: Absolute Lymphocytes (CBC) 1.3 K/uL (0.7-4.9); Lymphocytes % 27.5 % (15.3-44.8); MCV 85.2 fL (80-100)
[2021-10-17 15:42] LABS: Hematocrit 37.6 % (36.0-45.0); RBC Red Blood Cell Count 4.41 M/uL (3.86-4.86)
[2021-10-17] MEDS ORDERED: ONDANSETRON 4 MG/2 ML VIAL ONE (16:10)
[2021-10-17] MEDS ORDERED: NA CHLORIDE 0.9% 1,000 ML ONE (16:10)
[2021-10-17] MEDS ORDERED: MORPHINE 4 MG/ML SYR ONE (16:10)
[2021-10-17 16:17] LABS: Albumin 3.1 g/dL (3.4-5.0); Bilirubin Total 0.4 mg/dL (0.2-1.0); Protein, Total 7.4 g/dL (6.4-8.2)
--- NOTE | 2021-10-17 17:45 | RAD REPORT ---
EXAM DESCRIPTION: CT - Abdomen Pelvis W Contrast - 10/17/2021 5:33 pm CLINICAL HISTORY: Abdominal pain COMPARISON: September 2021 TECHNIQUE: Computed axial tomography of the abdomen pelvis was obtained. 100 cc Isovue-300 was admin istered intravenously. Oral contrast was not requested which limits evaluation of bowel and appendix All CT scans are performed using dose optimization technique as appropriate and may include automated exposure control or mA/KV adjustment according to patient size. FINDINGS: The liver, spleen, pancreas, adrenal and kidneys appear unremarkable. There is no evidence of diverticulitis. Right hemicolectomy. Apparent soft tissue within the transver se colon. A ventral hernia repair. Hysterectomy. Cholecystectomy IMPRESSION: Appearance soft tissue within the transverse colon. As this area appears normal on the p rior CT this probably represent spasm rather than a mass. Follow-up however is recommended.
--- NOTE | 2021-10-17 18:48 | ER ---
Nurse's Notes [facility] Name: Maris Arias Age: 41 yrs Sex: Female : 1980 Arrival Date: 10/17/2021 Time: 14:36 Bed 20 Private MD: Diagnosis: Crohn's disease, unspecified, without complications;Abdominal pain, Generalized;Vomiting Presentation: 10/17 14:47 Chief complaint: N/V/D and left sided abdominal pain x 1 week. Denies fever. Not hb tolerating fluids/meds. Coronavirus screen: Client presents with at least one sign or symptom that may indicate coronavirus-19. Standard/surgical mask placed on the client. Ebola Screen: No symptoms or risks identified at this time. Initial Sepsis Screen: Does the patient meet any 2 criteria? No. Patient's initial sepsis screen is negative. Does the patient have a suspected source of infection? No. Patient's initial sepsis screen is negative. Risk Assessment: Do you want to hurt yourself or someone else? Patient reports no desire to harm self or others. Onset of symptoms was October 10, 2021. 14:47 Method Of Arrival: Ambulatory hb 14:47 Acuity: CELESTE 3 hb Triage Assessment: 19:09 General: Appears. General: Appears distressed, uncomfortable, Behavior is calm, kr3 cooperative, appropriate for age. 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 - Social history:: Smoking status: Patient denies any tobacco usage or history of. Screenin:09 Tuberculosis screening: No symptoms or risk factors identified. Fall Risk Secondary mb8 diagnosis (15 points) Cancer. 16:38 Abuse screen: Denies threats or abuse. Nutritional screening: No deficits noted. ll1 Assessment: 13:55 GI: Reports cramping, diarrhea, nausea, vomiting. mb8 15:55 Pain: Quality of pain is described as crampy. mb8 16:55 Reassessment: No changes from previously documented assessment. Patient and/or family kr3 updated on plan of care and expected duration. Pain level reassessed. 18:54 Reassessment: No changes from previously documented assessment. Patient and/or family kr3 updated on plan of care and expected duration. Pain level reassessed. Patient is alert, oriented x 3, equal unlabored respirations, skin warm/dry/pink. 19:09 GI: Bowel sounds present X 4 quads. Abd is soft Abdomen is tender to palpation. kr3 Vital Signs: 13:50 BP 122 / 90; Pulse 87; Resp 16; Pulse Ox 96% on R/A; mb8 14:47 BP 155 / 93; Pulse 101; Resp 16; Temp 98.1; Pulse Ox 97% on R/A; Pain 8/10; hb 18:55 BP 108 / 71; Pulse 98; Resp 16; Pulse Ox 100% ; kr3 ED Course: 14:36 Patient arrived in ED. rg4 14:37 Elton Swain DO is Attending Physician. ms3 14:48 Triage completed. hb 14:49 Arm band placed on. hb 15:45 Missed attempt(s): 22 gauge in right antecubital area. Bleeding controlled, band aid ll1 applied, catheter tip intact. 15:49 Missed attempt(s): 22 gauge in right forearm. Bleeding controlled, band aid applied, ll1 catheter tip intact. 15:50 Alyssa Chambers, RN is Primary Nurse. ll1 16:00 Missed attempt(s): 22 gauge in left upper arm. mb8 16:04 Missed attempt(s): 20 gauge in right antecubital area. mb8 16:39 Patient has correct armband on for positive identification. Bed in low position. Call ll1 light in reach. Side rails up X 1. Client placed on continuous cardiac and pulse oximetry monitoring. NIBP monitoring applied. 17:34 CT Abd/Pelvis - IV Contrast Only In Process Unspecified. EDMS 18:47 Thien Garcia MD is Referral Physician. ms3 19:09 No provider procedures requiring assistance completed. IV discontinued, intact, kr3 bleeding controlled, No redness/swelling at site. Pressure dressing applied. Administered Medications: 17:01 Drug: Zofran (Ondansetron) 4 mg Route: IVP; Site: left antecubital; kr3 19:06 Follow up: Response: No adverse reaction kr3 17:10 Drug: morphine 4 mg Route: IVP; Infused Over: 4 mins; Site: left antecubital; kr3 19:05 Follow up: Response: No adverse reaction; RASS: Alert and Calm (0) kr3 17:35 Drug: NS 0.9% 1000 ml Route: IV; Rate: 1 bolus; Site: left antecubital; kr3 19:05 Follow up: Response: No adverse reaction; IV Status: IV infiltrated kr3 Medication: 16:39 VIS not applicable for this client. ll1 Outcome: 18:47 Discharge ordered by MD. ms3 19:10 Discharged to home ambulatory. kr3 19:10 Condition: stable 19:10 Discharge instructions given to patient, Instructed on discharge instructions, follow up and referral plans. medication usage, Demonstrated understanding of instructions, follow-up care, medications, Prescriptions given X 4. 19:11 Patient left the ED. kr3 Signatures: Dispatcher [employer] EDMS Rayne Draper RN RN hb Garcia, Rubi rg4 Alyssa Chambers RN RN ll1 Elton Swain DO DO ms3 Josefina Tai RN RN kr3 Joel Moyer RN RN mb8 Corrections: (The following items were deleted from the chart) 16:05 16:04 Missed attempt(s): 22 gauge in left upper arm. mb8 mb8
--- NOTE | 2021-10-17 18:48 | EDPHYS ---
Physician Documentation [facility] Name: Maris Arias Age: 41 yrs Sex: Female : 1980 Arrival Date: 10/17/2021 Time: 14:36 Bed 20 Private MD: ED Physician Elton Swain HPI: 10/17 17:40 This 41 yrs old Female presents to ER via Ambulatory with complaints of Abdominal ms3 Cramping, Nausea/Vomiting. 17:41 The patient presents with abdominal pain that is diffuse. Onset: The symptoms/episode ms3 began/occurred 1 week(s) ago. The symptoms do not radiate. Associated signs and symptoms: none. The symptoms are described as achy. Modifying factors: The symptoms are alleviated by nothing, the symptoms are aggravated by nothing. Severity of pain: At its worst the pain was severe a 8 / 10 in the emergency department the pain is unchanged. 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 - Social history:: Smoking status: Patient denies any tobacco usage or history of. ROS: 17:41 Constitutional: Negative for fever, and chills. Neck: Negative for injury, pain, and ms3 swelling, Cardiovascular: Negative for chest pain, and palpitations. Respiratory: Negative for shortness of breath, cough, wheezing, and pleuritic chest pain. 17:41 Skin: Negative for injury, rash, and discoloration. 17:41 Abdomen/GI: Positive for abdominal pain, nausea, vomiting. 17:41 All other systems are negative. Exam: 17:41 Constitutional: This is a well developed, well nourished patient who is awake, alert, ms3 and in no acute distress. Eyes: Pupils equal round and reactive to light, extra-ocular motions intact. Lids and lashes normal. Conjunctiva and sclera are non-icteric and not injected. Periorbital areas with no swelling, redness, or edema. Neck: Trachea midline, no cervical lymphadenopathy. Supple, full range of motion without nuchal rigidity, or vertebral point tenderness. No Meningismus. Chest/axilla: Normal chest wall appearance and motion. Nontender with no deformity. Cardiovascular: Regular rate and rhythm with a normal S1 and S2. No gallops, murmurs, or rubs. Normal PMI, no JVD. No pulse deficits. Respiratory: Lungs have equal breath sounds bilaterally, clear to auscultation and percussion. No rales, rhonchi or wheezes noted. No increased work of breathing, no retractions or nasal flaring. 17:41 Abdomen/GI: Inspection: abdomen appears normal, Bowel sounds: normal, Palpation: moderate abdominal tenderness, in all quadrants. Vital Signs: 13:50 BP 122 / 90; Pulse 87; Resp 16; Pulse Ox 96% on R/A; mb8 14:47 BP 155 / 93; Pulse 101; Resp 16; Temp 98.1; Pulse Ox 97% on R/A; Pain 8/10; hb 18:55 BP 108 / 71; Pulse 98; Resp 16; Pulse Ox 100% ; kr3 MDM: 15:03 Patient medically screened. ms3 17:41 Differential diagnosis: gastritis, non-specific abd pain, Crohn's disease. ms3 18:47 Data reviewed: vital signs, nurses notes, lab test result(s), radiologic studies, and ms3 as a result, I will discharge patient. 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 Special discussion: I discussed with the patient/guardian in detail that at this point there is no indication for admission to the hospital. It is understood, however, that if the symptoms persist or worsen the patient needs to return immediately for re-evaluation. ED course: Patient is improved, in NAD, non-toxic appearing, ambulatory in ED, speaking full sentences.. 18:54 Physician consultation: Thien Garcia MD was called at 18:55, Will see in clinic. ms3 Would like 5 days of Cipro, Flagyl, Steroids, Zofran. 10/17 14:55 Order name: CBC with Diff; Complete Time: 17:55 ms3 10/17 14:55 Order name: CMP; Complete Time: 17:55 ms3 10/17 14:55 Order name: Lipase; Complete Time: 17:55 ms3 10/17 14:55 Order name: CT Abd/Pelvis - IV Contrast Only; Complete Time: 17:55 ms3 10/17 14:55 Order name: IV Saline Lock; Complete Time: 17:05 ms3 10/17 14:55 Order name: Labs collected and sent; Complete Time: 15:36 ms3 Administered Medications: 17:01 Drug: Zofran (Ondansetron) 4 mg Route: IVP; Site: left antecubital; kr3 19:06 Follow up: Response: No adverse reaction kr3 17:10 Drug: morphine 4 mg Route: IVP; Infused Over: 4 mins; Site: left antecubital; kr3 19:05 Follow up: Response: No adverse reaction; RASS: Alert and Calm (0) kr3 17:35 Drug: NS 0.9% 1000 ml Route: IV; Rate: 1 bolus; Site: left antecubital; kr3 19:05 Follow up: Response: No adverse reaction; IV Status: IV infiltrated kr3 Disposition Summary: 10/17/21 18:47 Discharge Ordered Location: Home ms3 Condition: Stable ms3 Diagnosis - Crohn's disease, unspecified, without complications ms3 - Abdominal pain, Generalized ms3 - Vomiting ms3 Followup: ms3 - With: Thien Garcia MD - When: 2 - 3 days - Reason: Re-evaluation by your physician Discharge Instructions: - Discharge Summary Sheet cp - Abdominal Pain, Adult ms3 - Crohn's Disease ms3 Forms: - Medication Reconciliation Form ms3 - Thank You Letter ms3 - Antibiotic Education ms3 - Prescription Opioid Use ms3 Prescriptions: - ondansetron 8 mg Oral tablet,disintegrating - take 1 tablet by ORAL route every 8 hours; 20 tablet; Refills: 0, Product cp Selection Permitted - Cipro 250 mg Oral Tablet - take 2 tablets by ORAL route every 12 hours; 10 tablet; Refills: 0, Product ms3 Selection Permitted - Flagyl 500 mg Oral Tablet - take 1 tablet by ORAL route every 8 hours for 5 days; 30 tablet; Refills: 0, ms3 Product Selection Permitted - Prednisone 20 mg Oral Tablet - take 3 tablets by ORAL route once daily for 5 days; 15 tablet; Refills: 0, ms3 Product Selection Permitted Signatures: Dispatcher [employer] EDRayne Graves, RN RN Alyssa Chambers RN RN ll1 Elton Swain, DO DONIS ms3 Josefina Tai RN RN kr3 Corrections: (The following items were deleted from the chart) 17:30 16:49 Abdomen Pelvis Wo Con+CT.RAD.BRZ ordered. EDMS EDMS
[2021-10-17 20:32] VITALS: TEMP 98.1
[2021-10-17 20:35] VITALS: BP 108/71; O2SAT 100
== END 2021-10-17 19:11 | disposition home or self-care (01) ==
LOC: ER 14:33
DX: R10.84 Generalized abdominal pain (principal); K50.90 Crohn's disease, unspecified, without complications; R11.2 Nausea with vomiting, unspecified
CPT/HCPCS: 85025; 36415; 83690; 80053; 74177; Q9967; J7030; J2405

== ENCOUNTER 2022-05-24 05:57 | Emergency (ER) | payer BC ==
--- OUTSIDE RECORDS SUMMARY | 2022-05-24 06:01 | XMS REPORT | Clinical Summary ---
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
--- OUTSIDE RECORDS SUMMARY | 2022-05-24 06:05 | XMS REPORT | Continuity of Care Document ---
:1980 Author Organization [facility] t Address [address] [facility] [place] [address] Care Team Providers Name Role Phone Cesar BRYAN, Juwan Robison Primary Care Physician SYSTEM, PROVIDER NOT IN Attending Clinician Unavailable ROSETTE LOUIE Attending Clinician Unavailable ANNABELLA CLAROS Attending Clinician Unavailable LAB90 Attending Clinician Unavailable Fortino FELIX, Chrissie Cao Attending Clinician Dario Hogan DO Attending Clinician JACKIE AWAD Attending Clinician Unavailable Severiano BRYAN, Ronnie Attending Clinician Jackie Awad MD Attending Clinician CIARA GOMEZ Attending Clinician Unavailable Sergio BRYAN, Marcus Tran Attending Clinician Jose Alfredo BRYAN, Miranda Asher Attending Clinician Cesar BRYAN, Juwan Robison Attending Clinician MD VIPUL Attending Clinician Unavailable ESTRELLA PARMAR Attending Clinician Unavailable EUGENIA LEE Attending Clinician Unavailable Eugenia Lee MD Attending Clinician Harlan UNDERGRADUATE ADVISOR-C, Annabella Attending Clinician Job FELIX, Yajaira Gramajo Attending Clinician Unavailable Darien UNDERGRADUATE ADVISOR, Nasreen Attending Clinician Abigail UNDERGRADUATE ADVISOR, Randy Attending Clinician RANDY BARRAGAN Attending Clinician Unavailable Doctor Unassigned, Willits Attending Clinician Unavailable Jose Melendrez Attending Clinician Zen Paz DO Attending Clinician JOSEPH RIVERA Attending Clinician Unavailable Lab, Adc Fam Pob I Attending Clinician Unavailable Debra UNDERGRADUATE ADVISOR, Savana Attending Clinician MACK ROLLINS Attending Clinician Unavailable ADELA BECKWITH Attending Clinician Unavailable STEF GIFFORD Admitting Clinician Unavailable JACKIE AWAD Admitting Clinician Unavailable Jackie Awad MD Admitting Clinician JOSEPH RIVERA Admitting Clinician Unavailable MACK ROLLINS Admitting Clinician Unavailable ADELA BECKWITH Admitting Clinician Unavailable Payers Payer Name Policy Type Policy Number Effective Date Expiration Date S [facility] BCBS OF [place] - [id number] 2016 00:00:00 OUT OF STATE BCBS 2 [id number] 2020 00:00:00 Problems Condition Condition Condition Status Onset Resolution Last Treating Co mments Source Name Details Category Date Date Treatment Clinician Date Acute Acute Disease Active Univers colitis colitis 3-19 ity of 00:00: [address] Colitis Colitis Disease Active Univers 3-17 ity of 00:00: [address] Depression Depression Disease Active [place] 4-06 [facility] 00:00: - 00 Externa l Inflammato Inflammato Disease Active Overview : Karolina ry bowel ry bowel 4 Formattin Sey bold disease disease 00:00: g of this - 00 note Externa might be l different from the original. Chrohns disease since age 14Had [address]es Dr. Johana Celestin st colon exam 2020Last Assessmen t & Plan: Formattin g of this note might be different from the original. Controlle d History of History of Disease Active Overview : Karolina total total 4- Formattin Seybold abdominal abdominal 00:00: g of this - hysterecto hysterecto 00 note Ex terna my my might be l different from the original. Due to endometri osisLast Assessmen t & Plan: Formattin g of this note might be different from the original. Resolved Vitamin D Vitamin D Disease Active Toney sey deficiency deficiency 4 Se ybold 00:00: - 00 Externa l LLQ LLQ Disease Active 2018-03 Univers abdominal abdominal 1-03 ity of pain pain 00:00: [place] 00 Medical Branch Chills Chills Disease Active 2018-03 Univers 0-03 ity of 00:00: [place] 00 Medical Branch C. C. Disease Active 2018-03 Univers difficile difficile 0-02 ity of diarrhea diarrhea 00:00: [place] 00 Medical Branch Intractabl Intractabl Disease Active 2018-03 U nivers e vomiting e vomiting 0-01 it y of 00:00: [place] 00 Medical Branch History of History of Disease Active 2019 U nivers incisional incisional 6-10 it y of hernia hernia 00:00: [place] repair repair 00 Medical Branch History of History of Disease Active 2019 U nivers incisional incisional 6-10 it y [...] Disease Active Overview : Univers c c 7- Formattin ity of cholelithi cholelithi 00:00: g of this [facility] asis 00 note Medical might be Branch different from the original. Added automatic ally from request for surgery [id number] Rash Rash [facility] Medical 00 [place] Erythema Erythema Disease Active [facility]e [facility]e [facility]: Medical 00 Center Abdominal Abdominal Disease Active Uni vers pain pain 6-28 ity of 00:00: [place] [facility] Crohn Crohn Disease Active Univers disease disease 5-04 ity of 00:00: [address] Branch Generalize Generalize Disease Active U nivers d d 5-04 ity of abdominal abdominal [place] 00 [facility] Exacerbati Exacerbati Disease Active U nivers on of on of 2-20 ity of Crohn's Crohn's 00:00: [place] disease disease 00 Medical Branch Intractabl Intractabl Disease Active U nivers e e 2-12 ity of abdominal abdominal 00:[place] 00 [facility] Obesity Obesity Disease Active Univers (BMI (BMI 2-12 ity of 30-39.9) 30-39.9) 00:00: [place] [facility] Branch Morbid Morbid Disease Active Univers obesity [...] ALLERGIE Class ity of S [facility] NO KNOWN Allergy Active [facility] Family History Family Member Diagnosis Comments Start Date Stop Date Source Natural brother Hypertension [facility] Natural father Cancer [facility] Natural mother Crohn's disease [facility] Natural mother Neuropathy [facility] Social History Social Habit Start Date Stop Date Quantity Comments Source History SDOH Karolina Hunter ld - Alcohol Frequency Externa l History SDOH Karolina Dale ld - Alcohol Std External Drinks History CLARIBELOH Karolina polanco - Alcohol Binge External History of Karolina Grayson - tobacco use External Exposure to Not sure [facility]-CoV-2 [place] Medical (event) Branch Tobacco use and 2021-05-22 2021-05-22 Smokeless tobacco Ke sonjajarrod Balesybold - exposure 00:00:00 00:00:00 non-user External Education 2021-05-18 2021-05-18 21 University of 00:00:00 00:00:00 [facility] Alcohol Comment 2021-01-25 2021-01-25 social Karolina Bales ybold - 00:00:00 00:00:00 External Tobacco Comment 2021-01-25 2021-01-25 vape Karolina Bales ybold - 00:00:00 00:00:00 External History SDOH 2018-12-03 2018-12-03 5 University o f Financial 00:00:00 00:00:00 [facility] History SDOH Food 2018-12-03 2018-12-03 1 Univers ity of Worry 00:00:00 00:00:00 [facility] History SDOH Food 2018-12-03 2018-12-03 1 Univers ity of Scarcity 00:00:00 00:00:00 [facility] History SDOH 2018-12-03 2018-12-03 2 University o f Transport Med 00:00:00 00:00:00 [facility] al Branch History SDOH 2018-12-03 2018-12-03 2 University o f Transport Non-Med 00:00:00 [facility] Alcohol intake 2016-09-04 2016-09-[address] [facility] 00:00:00 00:00:00 non-drinker of Medical Ce nter alcohol (finding) Sex Ass[birth year] At [birth year] R[facility] [place] 00:00:00 00:00:00 [facility] Smoking Status Start Date Stop Date Source Ex-smoker 2021-05-22 00:00:00 2021-05-22 00:00:00 Karolina hansen - External Smokes tobacco daily 2021-01-18 00:00:00 Karolina [place] Never smoker [facility] Branch Current some 2019-01-05 00:00:00 [facility] Branch Medications Ordered Filled Start Stop Current Ordering Indication Dosage Frequency Signature Comments Components Source Medication Medication Date Date Medication? Clinician (SIG) Name Name Fluoxetine 2022- No 40mg Take 40 mg Karolina HCl 40 MG 05-14 by mouth Seybo ld oral 11:15: 00:00 daily - Capsule 30 :00 Externa l Ustekinumab 2022- No Inject Toney sey 45 MG/0.5ML 05-14 into the Sey bold subcutaneou 10:55: 00:00 skin - s Solution 44 :00 Externa Prefilled l Syringe Risankizuma Yes [id number] Inject Karolina b-rzaa 05-14 into the Seybold (SKYRIZI 10:48: vein - IV) 45 Externa l Amitriptyli Yes [id number] 10mg Take 1 Karolina ne HCl 10 05-14 tablet (10 Seyb old MG oral 00:00: mg total) - Tablet 00 by mouth Externa at bedtime l Fluoxetine Yes [id number] 40mg Take 1 K elsey HCl 40 MG 9-14 capsule Seybold oral 00:00: (40 mg - Capsule 00 total) by Externa mouth l daily Benzonatate 2022- No [id number] 100mg Q.[id number] Take 1 Karolina (Tessalon 10-09 [id number] capsule Seybold Perles) 100 00:00: 00:00 3D (100 mg - MG oral 00 :00 total) by Externa Capsule mouth 3 l times daily as needed for cough Guaifenesin 2022- No [id number] 1200mg Take 2 Karolina (Mucinex) 10-09 tablets Seybol d 600 MG oral 00:00: 00:00 (1,200 mg - Tablet 12 00 :00 total) by Exter na Hour mouth 2 l Sustained times Release daily FLUoxetine Yes 40mg Take 40 mg U nivers 40 mg 3-21 by mouth ity of capsule 23:14: at [place] 00 bedtime. Medical Branch estradioL Yes .5mg Take 0.5 Univ ers 0.5 mg 3-21 mg by ity of tablet 23:14: mouth [place] 00 daily. Medical Branch gabapentin 0 Yes 300mg Take 300 Un alf 300 mg 3-21 mg by ity of capsule 23:14: mouth 3 [place] 00 (three) Medical times Branch daily. ALPRAZolam 0 Yes 2mg Take 2 mg Un alf [...] d oral 09:09: daily Capsule 40 Ustekinumab 2021-0 2021- No Inject Toney sey (STELARA 3-21 -21 into the Seybol d SC) 09:09: 00:00 skin Every 21 :00 8 Weeks Ustekinumab 0 Yes inject Univ ers 45 mg/0.5 3-20 under the ity o f mL SC 11:24: skin. [place] injection 40 Medical Branch FLUoxetine 0 Yes 40mg Take 40 mg U nivers 40 mg 3-20 by mouth ity of capsule 11:24: at [place] 40 bedtime. Medical Branch estradioL 0 Yes .5mg Take 0.5 Univ ers 0.5 mg 3-20 mg by ity of tablet 11:24: mouth [place] 40 daily. Medical Branch gabapentin 0 Yes 300mg Take 300 Un alf 300 mg 3-20 mg by ity of capsule 11:24: mouth 3 [place] 40 (three) Medical times Branch daily. ALPRAZolam 2021-0 Yes 2mg Take 2 mg Un alf (XANAX) 2 3-20 by mouth ity of mg tablet 11:24: as needed Gaurang as 40 for Medical Anxiety. Branch Ustekinumab 0 Yes inject Univ ers 45 mg/0.5 3-20 under the ity o f mL SC 11:24: skin. [place] injection 40 Medical Branch HYDROcodone 2021-0 Yes Karolina -Acetaminop 3-20 Seybold hen 10-325 00:00: MG oral 00 Tablet HYDROcodone 2021-0 Yes [id number] 1{tbl} Take 1 [...] 7-10). Indication s: acute pain HYDROcodone 2021-0 2022- No Kelse y -Acetaminop 3-20 03-13 Seybold hen 10-325 00:00: 00:00 - MG oral 00 :00 Externa Tablet l KCL 2021-0 2021- No 40meq 40 mEq, Univers (KLOR-CON 05-20-19 Oral, ity of M20) tablet 15:00: 14:34 [place]CE, 1 [place] 40 mEq 00 :00 dose, On Medical Sat Branch 05/20/21 at 1000, Routine morpHINE 2021-0 202- No 2mg 2 mg, Slow Un alf injection 2 05-2019 IV Push, ity of mg 10:15: 10:01 [...] Yes 2mg 2 mg, Univer s (IMODIUM 3-18 Oral, ity of A-D) 23:15: Q6HPRN, [place] capsule 2 23 Starting Medica l mg on Fri Branch 05/19/21 at 1815, Until Discontinu ed, Routine, Diarrhea morpHINE 2021-0 Yes 2mg 2 mg, Slow Uni vers injection 2 3-18 IV Push, ity of mg 21:15: Q3HPRN, [place] 00 Starting Medical on Fri Branch 05/19/21 at 1615, Until Discontinu ed, Routine, Pain (scale 7-10) NaCl 0.9% 0 Yes 1000mL at 125 Univ ers (NS) IV 3-18 mL/hr, IV ity of infusion 20:15: Infusion, [place] 1,000 mL 00 CONTINUOUS Medic al , Starting Branch on Sat05/19/21 at 1515, Until Discontinu ed, Routine KCL 2021- No 40meq 40 mEq, Univers (KLOR-CON 05-1918 Oral, ity of M20) tablet 14:00: 14:03 [place]CE, 1 [place] 40 mEq 00 :00 dose, On Medical Sat Branch 05/19/21 at 0900, Routine KCL 2021- No 40meq 40 mEq, Univers (KLOR-CON 05-1918 Oral, ity of M20) tablet 10:45: 10:58 ONCE, 1 [place] 40 mEq 00 :00 dose, On Medical Sat Branch 05/19/21 at 0545, Routine FLUoxetine Yes 40mg 40 mg, Unive rs (PROZAC) 3-18 Oral, QHS, ity o f capsule 40 04:15: First dose [place] mg 00 (after Medical last Branch modificati on) on Jade 05/18/21 at 2315, Until Discontinu ed, Routine morpHINE 2021- No 2mg 2 mg, Slow Un alf injection 2 05-1918 IV Push, ity of mg 04:02: 21:13 Q4HPRN, [place] 15 :29 Starting Medical on Jade Branch 05/18/21 at 2302, Until Sat05/19/21 at 1613, Routine, Pain (scale 7-10) ondansetron 0 Yes 4mg 4 mg, Slow Univers (ZOFRAN 318 IV Push, ity of (PF)) 02:54: Q6HPRN, [place] injection 4 28 Starting Medi parth mg on [place] Branch 05/18/21 at 2154, Until Discontinu ed, Routine, Nausea and Vomiting (N/V) HYDROcodone 0 2021- No 1{tbl} 1 tablet, Univers -acetaminop 05-19 Oral, ity of hen (NORCO) 02:54: 04:02 Q6HPRN, [place] 10-325 mg 25 :44 Starting Medica l tablet 1 on Jade Branch tablet 05/18/21 at 2154, Until Jade 05/18/21 at 2302, Routine, Pain (scale 7-10) acetaminoph Yes 650mg 650 mg, Un alf en 05-19 Oral, ity of (TYLENOL) 02:54: Q6HPRN, [place] tablet 650 20 Starting Medic al [...] Branch Jade 05/18/21 at 1800, STAT morpHINE 2021-0 2021- No 4mg 4 mg, Slow Un alf injection 4 05-18 IV Push, ity of mg 21:30: 20:28 ONCE, 1 [place] 00 :00 dose, On Medical Jade Branch 05/18/21 at 1630, STAT ciprofloxac No 400mg 400 mg, IV Univers in in 5 % 05-1818 Piggyback, ity of dextrose 21:00: 01:03 Q12H [...] On Jade 05/18/21 at 1600, STAT metroNIDAZO No 500mg 500 mg, IV Univers LE [...] of therapy: 72 hours iopamidol 2021- No [id number] 120mL 120 mL, Univers (ISOVUE 05-18 Intravenou [...] Jade 05/18/21 at 1415, STAT FENTanyl PF 0 2021- No 100ug 100 mcg, Univers (SUBLIMAZE 05-18 Slow IV ity o f (PF)) 19:15: 18:27 Push, [place] injection 00 :00 ONCE, 1 Medical 100 mcg dose, On Branch Jade 05/18/21 at 1415, STAT proMETHazin 2021- No 12.5mg 12.5 mg, Univers e 05-18 IV ity of (PHENERGAN) 19:15: 18:27 Piggyback, [place] 12.5 mg in 00 :00 ONCE, 1 Medica l NaCl 0.9% dose, On Branch (NS) 50 mL Jade IV 05/18/21 at piggyback 1415, LEWIS HYDROcodone 2021-0 Yes Karolina -Acetaminop 2-25 Seybold hen (NORCO) 00:00: 5-325 MG 00 oral Tablet HYDROcodone 2021-0 2022- No Kelse y -Acetaminop 2-25 03-13 [place]bold hen (NORCO) 00:00: 00:00 - 5-325 MG 00 :00 Externa oral Tablet l Diphenoxyla 2021-0 Yes Karolina te-Atropine 2-12 Seybold 2.5-0.025 00:00: MG oral 00 Tablet Diphenoxyla 2021-0 2022- No Kelse y te-Atropine 2-12 03-13 Seybold 2.5-0.025 00:00: 00:00 - MG oral 00 :00 Externa Tablet l Gabapentin 2021-0 Yes Karolina 300 MG oral 1-26 Seybold Capsule 00:00: 00 Gabapentin 2-0 2023- No Karolina 300 MG oral 1-26 -13 Seybold Capsule 00:00: 00:00 - 00 :00 Externa l Stelara 90 2021-0 Yes Karolina MG/ML 1-18 Seybold subcutaneou 00:00: s Solution 00 Prefilled Syringe Stelara 90 2021-0 2023- No Karolina MG/ML 1-18 -13 Seybold subcutaneou 00:00: 00:00 - s Solution 00 :00 Externa Prefilled l Syringe Alprazolam Yes [id number] .5mg Q.[id number] Take 1 Karolina 0.5 MG oral -11 [id number] tablet Seybold Tablet 00:00: 3D (0.5 mg 00 total) by mouth 3 times daily as needed for sleep or anxiety diazePAM 2 Yes Karolina MG oral -11 Seybold Tablet 00:00: 00 Alprazolam 2022- No [id number] .5mg Q.[id number] Take 1 Karolina 0.5 MG oral 03-14 [id number] tablet Seybold Tablet 00:00: 00:00 3D (0.5 mg - 00 :00 total) by Externa mouth 3 l times daily as needed for sleep or anxiety diazePAM 2 2022- No Karolina MG oral 03-1413 Seybold Tablet 00:00: 00:00 - 00 :00 Externa l Estradiol 2020-03 Yes .5mg Take 1 Karolina 0.5 MG oral 29 tablet Seybol d Tablet 00:00: (0.5 mg 00 total) by mouth daily Estradiol 2020-03- No .5mg Take 1 Kelse y 0.5 MG oral -29 13 tablet Seybo ld Tablet 00:00: 00:00 (0.5 mg - 00 :00 total) by Externa mouth l daily Ustekinumab 2020-03 Yes Inject Courtney ey (STELARA 1-24 into the Seybold SC) 11:16: skin Every 33 8 Weeks Ustekinumab 2020-03 Yes Inject Courtney ey 45 MG/0.5ML 1-24 into the Seyb old subcutaneou 11:16: skin s Solution 33 Prefilled Syringe Estrogens 2020-03 Yes [id number] Take one Karolina Conjugated 1-24 tablet Seybold (Premarin) 00:00: daily 0.3 MG oral 00 Tablet Ustekinumab 2020-03 Yes Inject Courtney ey 45 MG/0.5ML 1-17 into the Seyb old subcutaneou 10:59: skin s Solution 00 Prefilled Syringe Ustekinumab 2020-03 Yes Inject Courtney ey (STELARA 1-17 into the Seybold SC) 10:57: skin Every 52 8 Weeks hydrOXYzine 2020-03 Yes [id number] 10mg Q.[id number] Take 1 Karolina HCl 10 MG 1-17 [id number] tablet (10 Seybold oral Tablet 00:00: 3D mg total) 00 by mouth 3 times daily as needed for itching or anxiety Fluoxetine 2020-03 Yes [id number] 40mg Take 1 K elsey HCl 40 MG 1-17 capsule Seybold oral 00:00: (40 mg Capsule 00 total) by mouth daily hydrOXYzine 2020-03 Yes [id number] 10mg Q.[id number] Take 1 Karolina HCl 10 MG 1-17 [id number] tablet (10 Seybold oral Tablet 00:00: 3D mg total) 00 by mouth 3 times daily as needed for itching or anxiety Fluoxetine 2020-03 Yes [id number] 40mg Take 1 K elsey HCl 40 MG 1-17 capsule Seybold oral 00:00: (40 mg Capsule 00 total) by mouth daily hydrOXYzine 2020-03 Yes [id number] 10mg Q.[id number] Take 1 Karolina HCl 10 MG 1-17 [id number] tablet (10 Seybold oral Tablet 00:00: 3D mg total) 00 by mouth 3 times daily as needed for itching or anxiety Fluoxetine 2020-03 Yes [id number] 40mg Take 1 K elsey HCl 40 MG 1-17 capsule Seybold oral 00:00: (40 mg Capsule 00 total) by mouth daily hydrOXYzine 2020-03- No [id number] 10mg Q.[id number] Take 1 Karolina HCl 10 MG 1-17 03-13 [id number] tablet (10 Seybold oral Tablet 00:00: 00:00 3D mg total) - 00 :00 by mouth 3 Externa times l daily as needed for itching or anxiety HYDROcodone 2020- No 1{tbl} 1 tablet, Univers [...] Medica l NaCl 0.9% 10/02/20 at [place] [facility] (NS) 50 mL 0145, 50 piggyback mL ondansetron 2020- No 4mg 4 mg, Slow Univers (ZOFRAN 10-02 IV Push, ity of (PF)) 05:15: 04:37 ONCE, 1 [place] injection 4 00 :00 dose, Sun Med ical mg 10/02/20 at Branch 0015, LEWIS Ustekinumab Yes inject Univ ers 45 mg/0.5 8-01 under the ity o f mL SC 04:11: skin. [place] injection [address] [place] [address] Ustekinumab Yes inject Univ ers 45 mg/0.5 8-01 under the ity o f mL SC 04:11: skin. [place] injection [address] [place] [address] Ustekinumab Yes inject Univ ers 45 mg/0.5 8-01 under the ity o f mL SC 04:11: skin. [place] injection [address] [place] [address] Ustekinumab Yes inject Univ ers 45 mg/0.5 8-01 under the ity o f mL SC 04:11: skin. [place] injection [address] [place] [address] Ustekinumab Yes inject Univ ers 45 mg/0.5 8-01 under the ity o f mL SC 04:11: skin. [place] injection [address] [place] [address] Ustekinumab Yes inject Univ ers 45 mg/0.5 8-01 under the ity o f mL SC 04:11: skin. [place] injection [address] [place] [address] Promethazin Yes 25mg Q6H Take 25 mg Karolina e HCl 25 MG 10-02 by mouth Seyb old oral Tablet 00:00: every 6 00 hours as needed Promethazin Yes 25mg Q6H Take 25 mg Karolina e HCl 25 MG 8-01 by mouth Seyb old oral Tablet 00:00: every 6 00 hours as needed proMETHazin Yes [id number] 25mg Take 1 Univers e 25 mg 8-01 tablet by ity of tablet 00:00: mouth [place] 00 every 6 Medical (six) Branch hours as needed for N/V unresponsi ve to Ondansetro n. proMETHazin Yes 25mg Take 1 Univers e 25 mg 8-01 tablet by ity of tablet 00:00: mouth [place] 00 every 6 Medical (six) Branch hours as needed for N/V unresponsi ve to Ondansetro n. proMETHazin Yes [id number] 25mg Take 1 Univers e 25 mg 8-01 tablet by ity of tablet 00:00: mouth [place] 00 every 6 Medical (six) Branch hours as needed for N/V unresponsi ve to Ondansetro n. proMETHazin Yes [id number] 25mg Take 1 Univers e 25 mg 8-01 tablet by ity of tablet 00:00: mouth [place] 00 every 6 Medical (six) Branch hours as needed for N/V unresponsi ve to Ondansetro n. proMETHazin Yes [id number] 25mg Take 1 Univers e 25 mg 8-01 tablet by ity of tablet 00:00: mouth [place] 00 every 6 Medical (six) Branch hours as needed for N/V unresponsi ve to Ondansetro n. proMETHazin Yes [id number] 25mg Take 1 Univers e 25 mg 8-01 tablet by ity of tablet 00:00: mouth [place] 00 every 6 Medical (six) Branch hours as needed for N/V unresponsi ve to Ondansetro n. proMETHazin Yes [id number] 25mg Take 1 Univers e 25 mg 8-01 tablet by ity of tablet 00:00: mouth [place] 00 every 6 Medical (six) Branch hours as needed for N/V unresponsi ve to Ondansetro n. proMETHazin Yes [id number] 25mg Take 1 Univers e 25 mg [...] No 4mg 4 mg, Slow Univers (ZOFRAN 07-2018 IV Push, ity of (PF)) 00:15: 23:18 ONCE, 1 [place] injection 4 00 :00 dose, Tue Med ical mg 07/19/20 at Branch 1915, Routine morpHINE 2020- No 4mg 4 mg, Slow Un alf injection 4 07-2018 IV Push, ity of mg 00:15: 23:18 ONCE, 1 [place] 00 :00 dose, Tue Medical 07/19/20 at Branch 1915, STAT NaCl 0.9% 2020- No 500mL at 999 Univ ers (NS) bolus 07-19-18 mL/hr, 500 it y of infusion 22:30: 23:18 mL, IV [place] 500 mL 00 :00 Infusion, Medical ONCE, 1 [place] dose, 07/19/20 at 1730, STAT Ondansetron Yes 4mg Q.[id number] Take 4 mg Karolina (ZOFRAN) 4 5-18 [id number] by mouth Seybold MG oral 00:00: 3D every 8 TABLET 00 hours as DISPERSIBLE needed Ondansetron Yes 4mg Q.[id number] Take 4 mg Karolina (ZOFRAN) 4 5-18 [id number] by mouth Seybold MG oral 00:00: 3D every 8 - TABLET 00 hours as Externa DISPERSIBLE needed l Ondansetron Yes 4mg Q8H Take 4 mg K elsey (ZOFRAN) 4 5-18 by mouth Seybo ld MG oral 00:00: every 8 TABLET 00 hours as DISPERSIBLE needed Ondansetron Yes 4mg Q8H Take 4 mg K elsey (ZOFRAN) 4 5-18 by mouth Seybo ld MG oral 00:00: every 8 TABLET 00 hours as DISPERSIBLE needed ondansetron 2020-0 Yes [id number] 4mg Take 1 Univers (ZOFRAN 5-18 tablet by ity of ODT) 4 mg 00:00: mouth [place] disintegrat 00 every 8 Medic al ing tablet (eight) Branch hours as needed for Nausea and Vomiting (N/V). ondansetron 2020-0 Yes [id number] 4mg Take 1 Univers (ZOFRAN 5-18 tablet by ity of ODT) 4 mg 00:00: mouth [place] disintegrat 00 every 8 Medic al ing tablet (eight) Branch hours as needed for Nausea and Vomiting (N/V). ondansetron 2020-0 Yes [id number] 4mg Take 1 Univers (ZOFRAN 5-18 tablet by ity of ODT) 4 mg 00:00: mouth [place] disintegrat 00 every 8 Medic al ing tablet (eight) Branch hours as needed for Nausea and Vomiting (N/V). ondansetron 2020-0 Yes [id number] 4mg Take 1 Univers (ZOFRAN 5-18 tablet by ity of ODT) 4 mg 00:00: mouth [place] disintegrat 00 every 8 Medic al ing tablet (eight) Branch hours as needed for Nausea and Vomiting (N/V). ondansetron 2020-0 Yes [id number] 4mg Take 1 Univers (ZOFRAN 5-18 tablet by ity of ODT) 4 mg 00:00: mouth [place] disintegrat 00 every 8 Medic al ing tablet (eight) Branch hours as needed for Nausea and Vomiting (N/V). ondansetron 2020-0 Yes [id number] 4mg Take 1 Univers (ZOFRAN 5-18 tablet by ity of ODT) 4 mg 00:00: mouth [place] disintegrat 00 every 8 Medic al ing tablet (eight) Branch hours as needed for Nausea and Vomiting (N/V). ondansetron 2020-0 Yes [id number] 4mg Take 1 Univers (ZOFRAN 5-18 tablet by ity of ODT) 4 mg 00:00: mouth [place] disintegrat 00 every 8 Medic al ing tablet (eight) Branch hours as needed for Nausea and Vomiting (N/V). ondansetron 2020-0 Yes [id number] 4mg Take 1 Univers (ZOFRAN 5-18 tablet by ity of ODT) 4 mg 00:00: mouth [place] disintegrat 00 every 8 Medic al ing tablet (eight) Branch hours as needed for Nausea and Vomiting (N/V). ondansetron 2020-0 Yes [id number] 4mg Take 1 Univers (ZOFRAN 5-18 tablet by ity of ODT) 4 mg 00:00: mouth [place] disintegrat 00 every 8 Medic al ing tablet (eight) Branch hours as needed for Nausea and Vomiting (N/V). Fluoxetine 2020-0 Yes [id number] 20mg Take 1 K elsey HCl 20 MG 4-06 capsule Seybold oral 00:00: (20 mg Capsule 00 total) by mouth daily Fluoxetine 2020-0 Yes 20mg Take 20 mg K elsey HCl 20 MG 4-06 by mouth Seybol d oral 00:00: Capsule 00 Fluoxetine 2020-0 Yes [id number] 20mg Take 1 K elsey HCl 20 MG 4-06 capsule Seybold oral 00:00: (20 mg Capsule 00 total) by mouth daily Fluoxetine 2020-0 Yes 20mg Take 20 mg K elsey HCl 20 MG 4-06 by mouth Seybol d oral 00:00: Capsule 00 FLUoxetine 2020-0 Yes 20mg Take 20 mg U nivers 20 mg 4-06 by mouth. ity of capsule 00:00: [address] FLUoxetine 2020-0 Yes 20mg Take 20 mg U nivers 20 mg 4-06 by mouth. ity of capsule 00:00: [address] FLUoxetine 202-0 Yes 20mg Take 20 mg U nivers 20 mg 4-06 by mouth. ity of capsule 00:00: [address] FLUoxetine 202-0 Yes 40mg Take 40 mg U nivers 20 mg 4-06 by mouth. ity of capsule 00:00: [address] FLUoxetine 2020-0 Yes 40mg Take 40 mg U nivers 20 mg 4-06 by mouth. ity of capsule 00:00: [address] FLUoxetine 202-0 Yes 20mg Take 20 mg U nivers 20 mg 4-06 by mouth. ity of capsule 00:00: [address] FLUoxetine 2021-0 Yes 20mg Take 20 mg U nivers 20 mg 4-06 by mouth. ity of capsule 00:00: [address] FLUoxetine 202-0 Yes 20mg Take 20 mg U nivers 20 mg 4-06 by mouth. ity of capsule 00:00: [place] 00 [facility] Branch Fluoxetine 2021- No [id number] 20mg Take 1 Karolina HCl 20 MG 06-07- capsule Seybol d oral 00:00: 00:00 (20 mg Capsule 00 :00 total) by mouth daily Fluoxetine 2021- No 20mg Take 20 mg Karolina HCl 20 MG 06-07 by mouth Seybo ld oral 00:00: 00:00 Capsule 00 :00 lactobacill Yes [id number] 1{tbl} Take 1 Univers us 5-30 tablet by ity of acidophilus 00:00: mouth 2 Gaurang as 25 million 00 (two) Medical cell -100 times Branch mg captab daily. lactobacill Yes [id number] 1{tbl} Take 1 Univers us 5-30 tablet by ity of acidophilus 00:00: mouth 2 Gaurang as 25 million 00 (two) Medical cell -100 times Branch mg captab daily. lactobacill Yes [id number] 1{tbl} Take 1 Univers us 5-30 tablet by ity of acidophilus 00:00: mouth 2 Gaurang as 25 million 00 (two) Medical cell -100 times Branch mg captab daily. lactobacill 2020- No [id number] 1{tbl} Take 1 Univers us 5-30 07-31 tablet by ity of acidophilus 00:00[place]00 [place] :00 (two) Medical cell -100 times Branch mg captab daily. ondansetron 2019- No 4mg 4 mg, Slow Univers (ZOFRAN 03-29 IV Push, ity of (PF)) 03:15: 02:25 ONCE, 1 [place] injection 4 00 :00 dose, Sat Med ical mg 03/28/19 at Branch 211, LEWIS morpHINE 2019- No 4mg 4 mg, Slow Un alf injection 4 03-29 IV Push, ity of mg 03:15: 02:07 ONCE, 1 [place] 00 :00 dose, Sat Medical 20 at Branch 2115, STAT diphenhydrA 2019- No [...] Branch 2014, STAT traMADol 50 2020-0 Yes [id number] 50mg Take 1 Univers mg tablet 1-25 tablet by ity o f 00:00: mouth [place] 00 every 6 Medical (six) Branch hours as needed for Pain (scale 4-6). ondansetron 2020-0 Yes [id number] 8mg Take 1 Univers (ZOFRAN 1-25 tablet by ity of ODT) 8 mg 00:00: mouth [place] disintegrat 00 every 8 Medic al ing tablet (eight) Branch hours as needed for Nausea and Vomiting (N/V). traMADol 50 2020-0 Yes [id number] 50mg Take 1 Univers mg tablet 1-25 tablet by ity o f 00:00: mouth [place] 00 every 6 Medical (six) Branch hours as needed for Pain (scale 4-6). ondansetron 2020-0 Yes [id number] 8mg Take 1 Univers (ZOFRAN 1-25 tablet by ity of ODT) 8 mg 00:00: mouth [place] disintegrat 00 every 8 Medic al ing tablet (eight) Branch hours as needed for Nausea and Vomiting (N/V). traMADol 50 2020-0 Yes [id number] 50mg Take 1 Univers mg tablet 1-25 tablet by ity o f 00:00: mouth [place] 00 every 6 Medical (six) Branch hours as needed for Pain (scale 4-6). ondansetron Yes [id number] 8mg Take 1 Univers (ZOFRAN 1-25 tablet by ity of ODT) 8 mg 00:00: mouth [place] disintegrat 00 every 8 Medic al ing tablet (eight) Branch hours as needed for Nausea and Vomiting (N/V). traMADol 50 Yes [id number] 50mg Take 1 Univers mg tablet 1-25 tablet by ity o f 00:00: mouth [place] 00 every 6 Medical (six) Branch hours as needed for Pain (scale 4-6). traMADol 50 2020- No [id number] 50mg Take 1 Univers mg tablet 1-25 07-31 tablet by ity of 00:00: 00:00 mouth [place] 00 :00 every 6 Medical (six) Branch hours as needed for Pain (scale 4-6). ondansetron 2020- No [id number] 8mg Take 1 Univers (ZOFRAN 1-25 05-18 tablet by ity of ODT) 8 mg 00:00: 00:00 mouth [place] disintegrat 00 :00 every 8 Medic al ing tablet (eight) Branch hours as needed for Nausea and Vomiting (N/V). sertraline Yes 100mg QD Take [address] (ZOLOFT) 7-05 mg by [facility] MG 15:44: mouth Medical tablet 59 daily. Center vedolizumab Yes 300mg Inject [address] [facility] (ENTYVIO) 7-05 mg [facility] 300 mg SolR 15:44: intravenou Medical 59 sly once Center every 8 weeks. Immunizations Ordered Filled Immunization Date Status Comments [facility] e Immunization Name Name Influenza, 2022-01-31 Completed Karolina Galicia - Injectable, Mdck, 00:00:00 Externa l Preservative Free, Quadrivalt Tdap- (Boostrix, 2022-01-31 Completed Karolina hansen - Adacel) 00:00:00 External Influenza Virus 2020-06-07 Completed Karolina lee Vaccine, No 00:00:00 Preserv, age 6 months and up Tdap- (Boostrix, 2020-06-07 Completed Karolina hansen Adacel) 00:00:00 Influenza Virus 2020-06-07 Completed Karolina lee - Vaccine, No 00:00:00 External Preserv, age 6 months and up Tdap- (Boostrix, 2020-06-07 Completed Karolina hansen - Adacel) 00:00:00 External Influenza Virus 2020-06-07 Completed Karolina lee Vaccine, No 00:00:00 Preserv, age 6 months and up Tdap- (Boostrix, 2020-06-07 Completed Karolina hansen Adacel) 00:00:00 Influenza Virus 2020-06-07 Completed Karolina hernandezold Vaccine, No 00:00:00 Preserv, age 6 months and up Tdap- (Boostrix, 2020-06-07 Completed Karolina hansen Adacel) 00:00:00 Influenza Virus 2020-06-07 Completed Universit y [facility] Vaccine Quad IM [facility] 2020-06-07 Completed [facility] 00:00:00 [facility] Influenza Virus 2020-06-07 Completed Universit y of Vaccine Quad IM 3+ 00:00:00 [facility] TDAP 2020-06-07 Completed [facility] 00:00:00 [facility] Influenza, 2014-02-17 Completed Karolina Galicia Seasonal, 00:00:00 Injectable, Preservative Free Influenza, 2014-02-17 Completed Karolina Galicia - Seasonal, 00:00:00 External Injectable, Preservative Free Influenza, 2014-02-17 Completed Karolina Galicia - Seasonal, 00:00:00 External Injectable Influenza, 2014-02-17 Completed Karolina Galicia Seasonal, 00:00:00 Injectable, Preservative Free Influenza, 2014-02-17 Completed Karolina Galicia Seasonal, 00:00:00 Injectable, Preservative Free Influenza Virus 2014-02-17 Completed Universit y of Vaccine (3+ yrs) 00:00:00 [facility] Influenza Virus 2014-02-17 Completed Universit y of Vaccine (3+ yrs) 00:00:00 [facility] Hepatitis B, Adult 2010-12-20 Completed Karolina Galicia (3 dose) 00:00:00 MMR- Measles, 2010-12-20 Completed Karolina Seyb old Mumps, Rubella 00:00:00 Hepatitis B, Adult 2010-12-20 Completed Karolina Seybold (3 dose) 00:00:00 MMR- Measles, 2010-12-20 Completed Karolina Seyb old Mumps, Rubella 00:00:00 Hepatitis B, Adult 2010-12-20 Completed Karolina Seybold - (3 dose) 00:00:00 External MMR- Measles, 2010-12-20 Completed Karolina Seyb old - Mumps, Rubella 00:00:00 External Hepatitis B, Adult 2010-12-20 Completed Karolina Seybold - (3 dose) 00:00:00 External MMR- Measles, 2010-12-20 Completed Karolina Seyb old - Mumps, Rubella 00:00:00 External Hepatitis B, Adult 2010-12-20 Completed Karolina Seybold [...] Completed Unive rsity of 00:00:00 [facility] MMR 2010-12-20 Completed University of 00:00:00 [facility] HEP B, Adult Dosage 2010-12-20 Completed Unive rsity of 00:00:00 [facility] MMR 2010-12-20 Completed University of 00:00:00 [facility] Hepatitis B, Adult 2010-11-20 Completed Karolina Seybold (3 dose) 00:00:00 MMR- Measles, 2010-11-20 Completed Karolina Seyb old Mumps, Rubella 00:00:00 HEPATITIS A- ADULT 2010-11-20 Completed Karolina Galicia 00:00:00 Tdap- (Boostrix, 2010-11-20 Completed Karolina hansen Adacel) 00:00:00 Hepatitis B, Adult 2010-11-20 Completed Karolina Galicia (3 dose) 00:00:00 MMR- Measles, 2010-11-20 Completed Karolina Stuart old Mumps, Rubella 00:00:00 Hepatitis B, Adult 2010-11-20 Completed Karolina Galicia - (3 dose) 00:00:00 External MMR- Measles, 2010-11-20 Completed Karolina Stuart old - Mumps, Rubella 00:00:00 External HEPATITIS A- ADULT 2010-11-20 Completed Karolina Galicia - 00:00:00 External Tdap- (Boostrix, 2010-11-20 Completed Karolina hansen - Adacel) 00:00:00 External Hepatitis B, Adult 2010-11-20 Completed Karolina Galicia - (3 dose) 00:00:00 External MMR- Measles, 2010-11-20 Completed Karolina Stuart old - Mumps, Rubella 00:00:00 External HEPATITIS A- 2010-11-20 Completed Karolina Hunter ld - PEDI/ADOL 00:00:00 External Hepatitis B, Adult 2010-11-20 Completed Karolina Galicia [...] Completed Unive rsity of 00:00:00 [facility] HEPATITIS A 2010-11-20 Completed University of 00:00:00 [facility] MMR 2010-11-20 Completed University of 00:00:00 [facility] TDAP 2010-11-20 Completed University of 00:00:00 [facility] HEP B, Adult Dosage 2010-11-20 Completed Unive rsity of 00:00:00 [facility] HEPATITIS A 2010-11-20 Completed University of 00:00:00 [facility] MMR 2010-11-20 Completed University of 00:00:00 [facility] TDAP 2010-11-20 Completed University of 00:00:00 [facility] History Of Chicken 1983-03-04 Completed Karolina Galicia Pox 00:00:00 History Of Chicken 1983-03-04 Completed Karolina Galicia - Pox 00:00:00 External History Of Chicken 1983-03-04 Completed Karolina Galicia Pox 00:00:00 History Of Chicken 1983-03-04 Completed Karolina Stuartold Pox 00:00:00 Vital Signs Vital Name Observation Time Observation Value Comments Source Systolic blood 2022-05-14 15:50:00 92 mm[Hg] Karolina Galicia - pressure External Diastolic blood 2022-05-14 15:50:00 60 mm[Hg] Laura Galicia - pressure External Heart rate 2022-05-14 15:50:00 88 /min Karolina hansen - External Body temperature 2022-05-14 15:50:00 36.28 Zulma Courtney Galicia - External Body height 2022-05-14 15:50:00 157.5 cm Karolina hansen - External Body weight 2022-05-14 15:50:00 92.806 kg Karolina hansen - External BMI 2022-05-14 15:50:00 37.42 kg/m2 Karolina S eybold - External Oxygen saturation in 2022-05-14 15:50:00 99 /min Karolina Balesybold - Arterial blood by External Pulse oximetry Systolic blood 2021-05-22 14:00:00 120 mm[Hg] Karolina Seybold pressure Diastolic blood 2021-05-22 14:00:00 84 mm[Hg] Kelse y Seybold pressure Heart rate 2021-05-22 14:00:00 122 /min Karolina Walsh eybocollin Body temperature 2021-05-22 14:00:00 36.39 Zulma Courtney ey Seybold Respiratory rate 2021-05-22 14:00:00 16 /min Courtney garay Seybold Body height 2021-05-22 14:00:00 157.5 cm Karolina garaybocollin Body weight 2021-05-22 14:00:00 92.534 kg Karolina garaybold BMI 2021-05-22 14:00:00 37.31 kg/m2 Karolina garaybold Systolic blood 2021-05-21 12:50:00 109 mm[Hg] Univer sity of pressure [facility] Diastolic blood 2021-05-21 12:50:00 68 mm[Hg] Unive rsity of [facility] Heart rate 2021-05-21 12:50:00 93 /min [facility] Body temperature 2021-05-21 12:50:00 36.11 Zulma Univ ersity of [facility] Respiratory rate 2021-05-21 12:50:00 14 /[facility] in 2021-05-21 12:50:00 93 /min [facility] Arterial blood by [facility] Pulse oximetry Branch Body weight 2021-05-21 08:49:00 91.989 kg [facility] BMI 2021-05-21 08:49:00 37.09 kg/m2 [facility] Body height 2021-05-19 03:18:00 157.5 cm [facility] Systolic blood 2021-01-25 17:11:00 128 mm[Hg] [...] 2020-11-02 17:28:00 117 mm[Hg] Univer sity of [facility] Diastolic blood 2020-11-02 17:28:00 75 mm[Hg] Unive rsity of [facility] Heart rate 2020-11-02 17:28:00 80 /min [facility] [place] [facility] [place] [facility] Respiratory rate 2020-11-02 17:28:00 20 /min [facility] Body height 2020-11-02 17:28:00 157.5 cm [facility] Body weight 2020-11-02 17:28:00 90.719 kg [facility] BMI 2020-11-02 17:28:00 36.58 kg/m2 [facility] Oxygen saturation in 2020-11-02 17:28:00 99 /min University of Arterial blood by [facility] Pulse oximetry Branch Systolic blood 2020-10-02 04:23:00 124 mm[Hg] Univer sity of pressure [facility] Diastolic blood 2020-10-02 04:23:00 86 mm[Hg] Unive rsity of pressure [facility] Heart rate 2020-10-02 04:23:00 76 /min Universi ty [facility] [place] [facility] Respiratory rate 2020-10-02 04:23:00 17 /min Univ ersity of [place] [facility] Oxygen saturation in 2020-10-02 04:23:00 96 /min University of Arterial blood by [facility] Pulse oximetry Branch Body temperature 2020-10-02 03:27:00 37.11 Zulma Univ ersity of [place] [facility] Body height 2020-10-02 03:27:00 157.5 cm Universi ty [facility] [place] [facility] [place] Body weight 2020-10-02 03:27:00 91.173 kg [facility]i ty [facility] [place] [facility] BMI 2020-10-02 03:27:00 36.76 kg/m2 [facility]i ty [facility] [place] [facility] Systolic blood 2020-07-20 00:00:00 144 mm[Hg] Univer sity of pressure [facility] Diastolic blood 2020-07-20 00:00:00 90 mm[Hg] Unive rsity of pressure [facility] Heart rate 2020-07-20 00:00:00 69 /min Universi ty [facility] [place] [facility] Respiratory rate 2020-07-20 00:00:00 18 /min Univ ersity of [place] [facility] Oxygen saturation in 2020-07-20 00:00:00 95 /min University of Arterial blood by [facility] Pulse oximetry Branch Body temperature 2020-07-19 21:57:00 37.22 Zulma Univ ersity of [place] [facility] Body weight 2020-07-19 21:57:00 99.338 kg Universi ty [facility] [place] [facility] BMI 2020-07-19 21:57:00 40.06 kg/m2 [facility]i ty [facility] [place] [facility] Systolic blood 2019-03-29 03:00:00 112 mm[Hg] Univer sity of pressure [facility] Diastolic blood 2019-03-29 03:00:00 66 mm[Hg] [facility] Heart rate 2019-03-29 03:00:00 76 /min [facility] Respiratory rate 2019-03-29 03:00:00 16 /min [facility] Oxygen saturation in 2019-03-29 03:00:00 98 /min [facility] Arterial blood by [facility] Pulse oximetry [place] Body temperature 2019-03-29 00:03:00 36.39 Zulma [facility] Body height 2019-03-29 00:03:00 157.5 cm [facility] Body weight 2019-03-29 00:03:00 99.791 kg [facility] BMI 2019-03-29 00:03:00 40.24 kg/m2 [facility] Procedures Procedure Date / Time Performing Clinician Source Performed LS RAPID STREP ASSAY-LAB 2021-05-22 14:18:41 Dario Hogan TEST BASIC METABOLIC PANEL 2021-05-21 10:01:00 Jose Robles [facility] (NA, K, CL, CO2, GLUCOSE, Medica l Branch BUN, CREATININE, CA) CBC WITH DIFF 2021-05-21 10:01:00 Jose Robles [facility] BASIC METABOLIC PANEL 2021-05-20 10:12:00 [facility] (NA, K, CL, CO2, GLUCOSE, Medica l Branch BUN, CREATININE, CA) CBC WITH DIFF 2021-05-20 10:12:00 [facility] FECAL PATHOGENS BY PCR 2021-05-19 19:09:00 Jackie Awad [facility] BASIC METABOLIC PANEL 2021-05-19 08:37:00 [facility] (NA, K, CL, CO2, GLUCOSE, Medica l Branch BUN, CREATININE, CA) CBC WITH DIFF 2021-05-19 08:37[facility] 2021-05-18 20:45:00 Ronnie العلي [facility] FECES CULTURE 2021-05-18 18:26:00 Ronnie العلي [facility] OCCULT (GUAIAC) BLOOD 2021-05-18 18:26:00 Ronnie العلي [facility] CLOSTRIDIUM DIFFICILE 2021-05-18 18:26:[address] [facility] TOXIN [facility] Branch LACTIC ACID WHOLE BLOOD 2021-05-18 18:23:00 Ronnie العلي [facility] BLOOD CULTURE SCREEN 2021-05-18 18:21:00 Ronnie العلي [facility] COMP. METABOLIC PANEL 2021-05-18 18:21:[address] [facility] ([id number]) [facility] [place] CBC WITH DIFF 2021-05-18 18:21:00 Ronnie العلي [facility] PROTHROMBIN TIME / INR 2021-05-18 18:21:00 Ronnie العلي [facility] ACTIVATED PARTIAL 2021-05-18 18:21:00 [facility] URINALYSIS 2021-05-18 18:21:00 Ronnie العلي [facility] COVID-19 (ID NOW RAPID 2021-05-18 18:21:00 Ronnie العلي [facility] TESTING) Medical Branch LAB ONLY COVID 2021-05-18 18:21:00 Ronnie العلي [facility] INTERPRETATION [facility] CONSENT/REFUSAL FOR 2021-05-18 17:31:08 Doctor Unassigned, [facility] DIAGNOSIS AND TREATMENT [facility] NOTICE OF PRIVACY 2021-05-18 17:30:52 Doctor Unassigned, [facility] PRACTICES [facility] PATHOLOGY OUTSIDE 2021-02-13 00:00:00 Miranda Veliz [facility] INTERPRETATION [facility] er Center OSI CT SFT TISS NECK 2021-01-30 15:06:00 Juwan Guerrero [facility] ASSIGNMENT OF BENEFITS 2020-11-02 16:11:47 Doctor Unassigned, [facility] LIPASE 2020-10-02 04:35:00 Jose Rodriguez [facility] COMP. METABOLIC PANEL 2020-10-02 04:35:[address] [facility] ([id number]) Medical Branch CBC WITH DIFF 2020-10-02 04:35:00 Jose Rodriguez [facility] URINALYSIS 2020-10-02 04:32:00 Jose Rodriguez [facility] CONSENT/REFUSAL FOR 2020-10-02 03:12:32 Doctor Rosie [facility] DIAGNOSIS AND TREATMENT [facility] COVID-19 (ID NOW RAPID 2020-07-20 00:02:00 Zen Paz [facility] TESTING) Medical Branch LIPASE 2020-07-19 22:26:00 Singer Zen [facility] COMP. METABOLIC PANEL 2020-07-19 22:26:[address] [facility] ([id number]) Medical Branch CBC WITH DIFF 2020-07-19 22:26:00 Singer [facility] URINALYSIS 2020-07-19 22:26:00 Singer [facility] NOTICE OF PRIVACY 2020-07-19 21:38:41 Doctor Rosie, [facility] PRACTICES [facility] CONSENT/REFUSAL FOR 2020-07-19 21:37:52 Doctor Rosie [facility] DIAGNOSIS AND TREATMENT [facility] CT ABDOMEN PELVIS W 2019-03-29 02:36:34 Jose Rodriguez [facility] CONTRAST Medical Branch POCT TEST 2019-03-29 00:48:00 Jose Rodriguez [facility] [place] LIPASE 2019-03-29 00:47:00 Jose Rodriguez [facility] COMP. METABOLIC PANEL 2019-03-29 00:47:[address] [facility] ([id number]) Medical Branch CBC WITH DIFFERENTIAL 2019-03-29 00:47:00 Jose Rodriguez [facility] URINALYSIS 2019-03-29 00:47:00 Jose Rodriguez [facility] NOTICE OF PRIVACY 2019-03-28 23:58:28 Doctor Unanaa, [facility] PRACTICES [facility] CONSENT/REFUSAL FOR 2019-03-28 23:55:31 Doctor Unassigned, Nika [facility] [place] [facility] DIAGNOSIS AND TREATMENT [facility] Encounters Start End Encounter Admission Attending Care Care Encounter Source Date/Time Date/Time Type Type Clinicians Facility Department ID 2021-02-21 Outpatient SYSTEM, CUCA THURMAN [id number] 16:13:12 PROVIDER Kuldip guidry 2021-01-[address] [facility] [id number] Univers 12:14:09 ity [facility] 2021-01-01 Emergency X [facility] ERT [id number] Univers 19:53:57 ity [facility] 2021-01-[address] [facility] [id number] Univers 19:53:02 ity [facility] 2022-08-07 2022-08-07 Outpatient KAROLINA LOUIE [id number] Karolina 13:30:00 13:30:00 ROSETTE polanco 2022-05-17 2022-05-17 Outpatient KAROLINA CLAROS [id number] Karolina 00:00:00 00:00:00 ANNABELLA Seybol d 2022-05-17 2022-05-17 Outpatient KAROLINA CLAROS [id number] Karolina 00:00:00 00:00:00 ANNABELLA Seybol d 2022-05-17 2022-05-17 Outpatient KAROLINA CLAROS [id number] Karolina 00:00:00 00:00:00 ANNABELLA Seybol d 2022-05-15 2022-05-15 Outpatient KAROLINA CLAROS [id number] Karolina 00:00:00 00:00:00 ANNABELLA Seybol d 2022-05-14 2022-05-14 Outpatient LAB90 KAROLINA MOORE [id number] Karolina 11:50:00 11:50:00 Seybol d 2022-05-14 2022-05-14 Outpatient KAROLINA CLAROS [id number] Karolina 11:00:00 11:00:00 ANNABELLA Seybol d 2022-01-30 2022-01-30 Outpatient KAROLINA LOUIE [id number] Karolina 09:00:00 09:00:00 ROSETTE Seybo ld 2021-11-15 2021-11-15 Outpatient KAROLINA CLAROS [id number] Karolina 00:00:00 00:00:00 ANNABELLA Seybol d 2021-10-09 2021-10-09 Outpatient KAROLINA CLAROS [id number] Karolina 00:00:00 00:00:00 ANNABELLA Seybol d 2021-07-18 2021-07-18 Outpatient KAROLINA CLAROS [id number] Karolina 00:00:00 00:00:00 ANNABELLA Seybol d 2021-05-23 2021-05-23 Transition CARMITA Freitas [id number] Univers 00:00:00 00:00:00 of Care Chrissie NAGY [id number] i ty of [place] [id number] [facility] 403 Branch 2021-05-22 2021-05-22 Office Myron Hogan [id number] Karolina 09:00:00 09:15:00 Visit Dario Weaver [id number] Se ybold 1.2.7.2.686 [id number] 2021-05-18 2021-05-21 Inpatient X AMEYA KSGREGORIO JULIO CÉSAR [id number] Univers 12:37:00 11:14:00 JACKIE villafana [facility] 2021-05-18 2021-05-21 [facility] Ronnie العلي [facility] 1.2.840.1 [id number] Univers 12:37:00 11:14:00 Encounter Jacike Awad [id number] ity [place] [id number] [facility] 081 Branch 2021-03-23 2021-03-23 Outpatient KAROLINA CLAROS [id number] Karolina 00:00:00 00:00:00 ANNABELLA Seybol d 2021-03-23 2021-03-23 Outpatient KAROLINA GOMEZ [id number] Karolina 00:00:00 00:00:00 AHMED Seybol d 2021-03-14 2021-03-14 Outpatient KAROLINA CLAROS [id number] Karolina 00:00:00 00:00:00 ANNABELLA Stuartol stephane 2021-03-13 2021-03-13 Lab [place] 1.2.840.1 [id number] [facility] 00:00:00 00:00:00 Dewayne Veliz Miranda S. [id number] ity of n 3.412.2.7 [place] .[id number] MD Garcia8 [facility] 2021-03-01 2021-03-01 Outpatient HARLAN KAROLINA MOORE [id number] Karolina 00:00:00 00:00:00 ANNABELLA calderón 2021-02-28 2021-02-28 Ancillary ERIC Guerrero 1.2.840.1 [id number] [facility] 20:00:00 20:05:00 Procedure Juwan Robison [id number] ity of 3.412.2.7 [place] .[id number] MD Garcia8 [facility] 2021-02-20 2021-02-20 Travel 1.2.840.1 [id number] [facility] 00:00:00 00:00:00 [id number] ity of 3.412.2.7 [place].698 [place] .[id number] 084.8 MD Garcia8 [facility] 2021-02-09 2021-02-09 Outpatient SATNAM MOORE [id number] Karolina 00:00:00 00:00:00 MD RILEY Seybol d 2021-02-07 2021-02-07 Outpatient KAROLINA MOORE [id number] Karolina 09:50:00 09:50:00 Seybol d 2021-02-07 2021-02-07 Outpatient ESTRELLA PARMAR [id number] Karolina 00:00:00 00:00:00 Seybol d 2021-02-06 2021-02-06 Outpatient ESTRELLA PARMAR [id number] Karolina 00:00:00 00:00:00 Seybol d 2021-02-01 2021-02-01 Outpatient KAROLINA MOORE [id number] Karolina 12:40:00 12:40:00 Seybol d 2021-01-30 2021-01-30 Outpatient KAROLINA LEE [id number] Karolina 00:00:00 00:00:00 EUGENIA Seybol d 2021-01-25 2021-01-25 Office JEAN Lee [id number] Karolina 11:30:00 12:00:00 Visit Eugenia Becerra [id number] Seybold 1.2.7.2.686 [id number] 2021-01-20 2021-01-20 Outpatient KAROLINA CLAROS [id number] Karolina 00:00:00 00:00:00 ANNABELLA Seybol d 2021-01-18 2021-01-18 Outpatient LAB90 KAROLINA MOORE [id number] Karolina 11:55:00 11:55:00 Seybol d 2021-01-18 2021-01-18 Office Myron Claros [id number] Karolina 10:49:52 11:19:52 Visit Annabella Weaver [id number] Se ybold 1.2.7.2.686 [id number] 2020-11-04 2020-11-04 Letter ROBERTA Kaiser [id number] Univers 00:00:00 00:00:00 (Out) Yajaira AJ [id number] it y of [facility] [id number] Gaurang as [id number] [address] 2020-11-02 2020-11-02 Urgent Nasreen [facility] 1.2.840.114 [id number] Univers 11:13:05 11:33:05 [facility] 350.1.13.10 ity of [place] 4.2.7.2.686 Gaurang as Bebo?Blea [phone] Az clarence [address] Medical Office Building 2020-11-02 2020-11-02 Outpatient CLEMENT MOONMB [facility] [id number] Univers 11:20:00 11:20:00 RANDY broderick o f [facility] 2020-11-02 2020-11-02 Orders Doctor ROBERTA 1.2.840.114 [id number] Univers 00:00:00 00:00:00 Only Unassigned, JEAN MARIE 350.1.13.10 ity of [place] [facility] 4.2.7.2.686 Gaurang as [phone] [facility] [address] 2020-10-01 2020-10-02 Emergency Rodriguez, [facility] [id number] Univers 22:30:00 01:56:00 Jose Walsh Randall 350.1.13.10 i [place] [phone] [place] [address] [place] 2020-07-19 2020-07-19 Emergency Paz, [facility] 1.2.025.532 [id number] Univers 16:54:00 19:37:00 Zen Pereira 350.1.13.10 i [place] [phone] [place] [address] [place] 2020-07-19 2020-07-19 Orders Doctor ROBERTA 1.2.840.114 [id number] Univers 00:00:00 00:00:00 Only Unassigned, JEAN MARIE 350.1.13.10 ity of [place] [facility] 4.2.7.2.686 [place]aurang [place] [phone] [place] [address] [place] 2020-06-07 2020-06-07 Outpatient LAB90 KAROLINA MOORE [id number] Karolina 10:00:00 10:00:00 Seybol d 2020-06-07 2020-06-07 Outpatient ESTRELLA PARMAR 971 [id number] Karolina 08:30:00 08:30:00 Seybol d 2020-02-04 2020-02-05 Inpatient E JUSTO RIVERA MED 7501 JUSTO 11:00:00 16:58:00 JOSEPH 2019-09-11 2019-09-11 Laboratory Lab, Adc Fam Pob I [facility] 1.2. 840.114 [id number] Univers 14:09:42 14:29:42 Only Savana Richardson 350.1.13.10 ity of [place] 4.2.7.2.686 Gaurang as Professio [phone] Az dical nal [address] Office Building One 2019-09-11 2019-09-[address] [facility] [id number] Univers 14:20:00 14:20:00 ity [facility] 2019-07-29 2019-08-01 Outpatient X AYO, [facility] [id number] Univers 14:08:13 12:04:00 MACK ity [facility] 2019-03-28 2019-03-28 Emergency [facility] 1.2.805.615 [id number] Univers 18:12:42 22:01:00 Jose Marianoton 350.1.13.10 i [place] [phone] [place] [address] [place] Results Test Description Test Time Test Comments Results Result Comments Source LS RAPID STREP ASSAY-LAB TEST 2021-05-22 14:39:14 Test Item Value Reference Range Interpretation Comme nts STREP GP A AG, IA (test code = Negative Negative Infection due to Strep A cannot 88713-6) be ruled-out be cause the antigen present in the sample may be below th e detection limit of the te st. Specimen has been sent for c onfirmation of negative. Lab Interpretation (test code = Normal 09101-5) [facility] WITH [id number] 15:41:00 Test Item Value Reference Range Interpretation Comments WBC (test code = See_Comment L [Automated 4190-2) message] The sy stem which generated this result transmitted reference range : 4.30 - 11.10 10*3/?L. The reference range was not used to interpret this result as normal/abnormal . RBC (test code = See_Comment L [Automated 829-8) message] The sy stem which generated this [...] RDW-SD (test code = 42.5 fL 39.0-49.9 05133-3) RDW-CV (test code = 13.9 % 12.0-15.5 788-0) PLT (test code = See_Comment L [Automated 777-3) message] The sy stem which generated this result transmitted reference range : 166 - 358 10*3/ ?L. The reference r lenard was not used to interpret this result as normal/abnormal . MPV (test code = 10.0 fL 9.5-12.9 86794-6) NRBC/100 WBC (test See_Comment [Automat ed code = 5948927628) message] The system which generated this result transmitted reference range : 0.0 - 10.0 /100 WBCs. The refer ence range was not u sed to interpret th is result as normal/abnormal . NRBC x10^3 (test code See_Comment [Auto mated = 9097607244) message] The s ystem which generated this result transmitted reference range : 10*3/?L. The reference range was not used to interpret this result as normal/abnormal . SEG % (test code = 34 % 33-76 39163-8) BAND % (test code = 18 % 0-1 H 61741-6) META % (test code = 4 % See_Comment H [Automa garo 77362-8) message] The sy stem which generated this result transmitted reference range : <=0. The refere nce range was not u sed to interpret th is result as normal/abnormal . MYELO % (test code = 3 % See_Comment H [Autom ated 93414-8) message] The sy stem which generated this result transmitted reference range : <=0. The refere nce range was not u sed to interpret th is result as normal/abnormal . LYMPH % (test code = 30 % 14-54 78785-7) MONO % (test code = 8 % 0-4 H 14965-4) EOS % (test code = 3 % 0-3 99588-2) ANC (test code = 1.53 10*3/uL 1.88-7.09 [...] . Lab Interpretation Abnormal (test code = 17161-3) [facility] METABOLIC PANEL (NA, K, CL, CO2, GLUCOSE, BUN, CREATININE, CA)2021-05-21 12:04:23 Test Item Value Reference Range Interpretation Comments NA (test code = 143 mmol/L 135-145 8593905310) K (test code = 3.8 mmol/L 3.5-5.0 7690489035) CL (test code = 113 mmol/L 98-108 H 8188250307) CO2 TOTAL (test code = 22 mmol/L 23-31 L 0353226094) AGAP (test code = 2-16 3371713157) BUN (test code = <2 7-23 L 8289790687) GLUCOSE (test code = 114 mg/dL 70-110 H 7564450121) CREATININE (test code = 0.43 mg/dL 0.50-1.04 L 3162025267) CALCIUM (test code = 8.4 mg/dL 8.6-10.6 L 1564806254) eGFR (test code = mL/min/1.73m2 7431899310) SCOTT (test code = SCOTT) Association of [...] tests). Lab Interpretation Abnormal (test code = 44946-9) [facility] METABOLIC PANEL (NA, K, CL, CO2, GLUCOSE, BUN, CREATININE, CA)2021-05-20 12:32:44 Test Item Value Reference Range Interpretation Comments NA (test code = 137 mmol/L 135-145 5365597660) K (test code = 3.3 mmol/L 3.5-5.0 L 0920518823) CL (test code = 105 mmol/L 98-108 4484598467) CO2 TOTAL (test code = 23 mmol/L 23-31 8041701998) AGAP (test code = 2-16 5659996109) BUN (test code = <2 7-23 L 7720245372) GLUCOSE (test code = 98 mg/dL 70-110 3127625107) CREATININE (test code = 0.40 mg/dL 0.50-1.04 L 9263301177) CALCIUM (test code = 7.8 mg/dL 8.6-10.6 L 6017109516) eGFR (test code = mL/min/1.73m2 9744351029) SCOTT (test code = SCOTT) Association of [...] tests). Lab Interpretation Abnormal (test code = 40724-4) [facility] WITH [id number] 12:03:45 Test Item Value Reference Range Interpretation Comments WBC (test code = See_Comment LL [Automated 0090-2) message] The sy stem which generated this result transmitted reference range : 4.30 - 11.10 10*3/?L. The reference range was not used to interpret this result as normal/abnormal . RBC (test code = See_Comment L [Automated 169-8) message] The sy stem which generated this [...] RDW-SD (test code = 39.9 fL 39.0-49.9 97537-8) RDW-CV (test code = 12.9 % 12.0-15.5 788-0) PLT (test code = See_Comment L [Automated 777-3) message] The sy stem which generated this result transmitted reference range : 166 - 358 10*3/ ?L. The reference r lenard was not used to interpret this result as normal/abnormal . MPV (test code = 10.0 fL 9.5-12.9 93115-9) IPF % (test code = 2.1 % 1.3-7.7 Platelet count [id number]) measured by fluorescence method. NRBC/100 WBC (test See_Comment [Automat ed code = 9584048890) message] The system which generated this result transmitted reference range : 0.0 - 10.0 /100 WBCs. The refer ence range was not u sed to interpret th is result as normal/abnormal . NRBC x10^3 (test code See_Comment [Auto mated = 2022696802) message] The s ystem which generated this result transmitted reference range : 10*3/?L. The reference range was not used to interpret this result as normal/abnormal . GRAN MAT (NEUT) % 29.1 % (test code = 770-8) IMM GRAN % (test code 14.20 % = 0191678283) LYMPH % (test code = 29.2 % 736-9) MONO % (test code = 20.8 % 5905-5) EOS % (test code = 4.2 % 713-8) BASO % (test code = 2.5 % 706-2) GRAN MAT x10^3(ANC) 0.35 10*3/uL 1.88-7.09 L (test code = 6437010688) IMM GRAN x10^3 (test 0.17 10*3/uL 0.00-0.06 H code = 0723258335) LYMPH x10^3 (test code 0.35 10*3/uL 1.32-3.29 L = 731-0) MONO x10^3 (test code 0.25 10*3/uL 0.33-0.92 L = 742-7) EOS x10^3 (test code = 0.05 10*3/uL 0.03-0.39 711-2) BASO x10^3 (test code 0.03 10*3/uL 0.01-0.07 = 704-7) Lab Interpretation Abnormal (test code = 06174-2) [facility] with [id number] 11:04:29 Test Item Value Reference Range Interpretation [...] RDW-SD (test code = 41.0 fL 39.0-49.9 16831-9) RDW-CV (test code = 13.2 % 12.0-15.5 788-0) PLT (test code = See_Comment L [Automated 777-3) message] The sy stem which generated this result transmitted reference range : 166 - 358 10*3/ ?L. The reference r lenard was not used to interpret this result as normal/abnormal . MPV (test code = 10.4 fL 9.5-12.9 64235-2) IPF % (test code = 3.1 % 1.3-7.7 Platelet count 5256241137) measured by fluorescence method. NRBC/100 WBC (test See_Comment [Automat ed code = 0905684620) message] The system which generated this result transmitted reference range : 0.0 - 10.0 /100 WBCs. The refer ence range was not u sed to interpret th is result as normal/abnormal . NRBC x10^3 (test code See_Comment [Auto mated = 5914645659) message] The s ystem which generated this result transmitted reference range : 10*3/?L. The reference range was not used to interpret this result as normal/abnormal . GRAN MAT (NEUT) % 20.7 % (test code = 770-8) IMM GRAN % (test code 2.10 % = 4694130859) LYMPH % (test code = 41.7 % 736-9) MONO % (test code = 25.0 % 5905-5) EOS % (test code = 6.3 % 713-8) BASO % (test code = 4.2 % 706-2) GRAN MAT x10^3(ANC) 0.10 10*3/uL 1.88-7.09 L (test code = 4255820846) IMM GRAN x10^3 (test <0.03 0.00-0.06 code = 9937080359) LYMPH x10^3 (test code 0.20 10*3/uL 1.32-3.29 L = 731-0) MONO x10^3 (test code 0.12 10*3/uL 0.33-0.92 L = 742-7) EOS x10^3 (test code = 0.03 10*3/uL 0.03-0.39 711-2) BASO x10^3 (test code <0.03 0.01-0.07 = 704-7) BANDS (test code = Increased A 1499568694) DOHLE BODIES (test Present A code = 7792-5) PLT ESTIMATE (test Decreased Normal A code = 9317-9) Lab Interpretation Abnormal (test code = 76347-7) [facility] Metabolic Panel (NA, K, CL, CO2, GLUCOSE, BUN, CREATININE, CA)2021-05-19 09:30:28 Test Item Value Reference Range Interpretation Comments NA (test code = 138 mmol/L 135-145 9194361043) K (test code = 3.4 mmol/L 3.5-5.0 L 7228045882) CL (test code = 102 mmol/L 98-108 5178482228) CO2 TOTAL (test code = 27 mmol/L 23-31 9709246852) AGAP (test code = 2-16 9327699661) BUN (test code = 3 mg/dL 7-23 L 9856322389) GLUCOSE (test code = 96 mg/dL 70-110 3973949138) CREATININE (test code = 0.43 mg/dL 0.50-1.04 L 3649358038) CALCIUM (test code = 8.0 mg/dL 8.6-10.6 L 0537185271) eGFR (test code = mL/min/1.73m2 8579993268) SCOTT (test code = SCOTT) Association of [...] tests). Lab Interpretation Abnormal (test code = 86395-7) [facility] WITH [id number] 19:24:45 Test Item Value Reference Range Interpretation [...] RDW-SD (test code = 39.0 fL 39.0-49.9 51240-7) RDW-CV (test code = 13.0 % 12.0-15.5 788-0) PLT (test code = See_Comment L [Automated 777-3) message] The sy stem which generated this result transmitted reference range : 166 - 358 10*3/ ?L. The reference r lenard was not used to interpret this result as normal/abnormal . MPV (test code = 9.7 fL 9.5-12.9 37174-6) IPF % (test code = 2.3 % 1.3-7.7 Platelet count 5299680569) measured by fluorescence method. NRBC/100 WBC (test See_Comment [Automat ed code = 9351074912) message] The system which generated this result transmitted reference range : 0.0 - 10.0 /100 WBCs. The refer ence range was not u sed to interpret th is result as normal/abnormal . NRBC x10^3 (test code <0.01 See_Comment [Auto mated = 8900168280) message] The s ystem which generated this result transmitted reference range : 10*3/?L. The reference range was not used to interpret this result as normal/abnormal . GRAN MAT (NEUT) % 37.9 % (test code = 770-8) IMM GRAN % (test code 3.00 % = 1710702768) LYMPH % (test code = 36.4 % 736-9) MONO % (test code = 15.2 % 5905-5) EOS % (test code = 4.5 % 713-8) BASO % (test code = 3.0 % 706-2) GRAN MAT x10^3(ANC) 0.25 10*3/uL 1.88-7.09 L (test code = 9681478715) IMM GRAN x10^3 (test <0.03 0.00-0.06 code = 6263057199) LYMPH x10^3 (test code 0.24 10*3/uL 1.32-3.29 L = 731-0) MONO x10^3 (test code 0.10 10*3/uL 0.33-0.92 L = 742-7) EOS x10^3 (test code = 0.03 10*3/uL 0.03-0.39 711-2) BASO x10^3 (test code <0.03 0.01-0.07 = 704-7) BANDS (test code = Increased A 1333457649) DOHLE BODIES (test Present A code = 7792-5) Lab Interpretation Abnormal (test code = 26398-0) [facility] 18:49:49 Test Item Value Reference Range Interpretation Comments NA (test code = 135 mmol/L 135-145 9221293945) K (test code = 3.8 mmol/L 3.5-5.0 1380700260) CL (test code = 97 mmol/L 98-108 L 2814323907) CO2 TOTAL (test code = 30 mmol/L 23-31 4180216700) AGAP (test code = 2-16 0325237269) BUN (test code = 3 mg/dL 7-23 L 7247252717) GLUCOSE (test code = 102 mg/dL 70-110 8364426940) CREATININE (test code = 0.41 mg/dL 0.50-1.04 L 7748142034) TOTAL BILI (test code = 0.8 mg/dL 0.1-1.5 9431942959) CALCIUM (test code = 8.7 mg/dL 8.6-10.6 4650398389) T PROTEIN (test code = 7.2 g/dL 6.3-8.2 7902704165) ALBUMIN (test code = 4.4 g/dL 3.5-5.0 3014687695) ALK PHOS (test code = 133 U/L 34-122 H 2714661650) ALTv (test code = 26 U/L 5-35 1742-6) AST(SGOT) (test code = 26 U/L 13-40 0934294213) eGFR (test code = mL/min/1.73m2 8999183095) SCOTT (test code = SCOTT) Association of [...] tests). Lab Interpretation Abnormal (test code = 33814-7) [facility] [id number] 18:44:46 Test Item Value Reference Range Interpretation Comments APTT Patient (test See_Comment [Automat ed code = 3173-2) message] The system which generated this result transmitted reference range : 23 - 38 Seconds . The reference range was not used to interpr et this result as normal/abnormal . SCOTT (test code = SCOTT) The [facility] patient population mean normal value for aPTT is 30 seconds. Lab Interpretation Normal (test code = 28953-2) [facility] / [id number] 18:42:45 Test Item Value Reference Range Interpretation [...] tions. Lab Interpretation (test Normal code = 72627-6) [facility] [id number] 14:07:55 Test Item Value Reference Range Interpretation Comments Materials Received (test b6nqyXVhLSMtpPQrTsAu code = 9973) CLDoTIEio1xuJDFntTPh ZzEwMzNcZnRuYmpcdWMx AVKgNdTno0rhf075vZHj q9giAOQgDiT1uONhAMLx sWIjG782UNUkZUodz7ne h8HdMHShdBZbi8Q0UPWG yrqfnZo5uIkaS19bh6T0 XwxfN0qiOUIiRYCmA2Mn ZD3rOXLyMrr8KIH7SNF5 QMZyMAAjF5MpSL6dDEXc dWSdCVo9w3nncKpgEVXm HRK5q4qcUStgtjBdNP3t lh0aaOr0z1xdzgDrSTYq JZXgjIEPGLVhB3FgvQfj Cd2sbYn2xWheWoyyMIS3 Idg5CO9nla27hjm0iTpl VHNinndiUsJ6BVotHHJe pvjkIIv6MGceQGYiaFif MFxtYXJncjcyMFxtYXJn cYW6HKXaaJIyA3KpVSHa XYyoXLQzjur8NaXlTw3q xXItzExuXVlum5xbg6bd oOVsSon7TTPvNkGwTgmb YDmwz1Iel8nyLVTxyq7n STY4uRKdpKxlt7L7hQAl UEUabUOtjuOzJBCwvh42 vIRsqUDpbRFnqr5hsrQx cRQxhKCmZQA9bFBrkzBu KIBmgYKcZDJlJV5ssONx VFVcqS3icivsYJIeHjFl wtbjDQQsyVpilsOiVp0j oTpzCOE8MPqrM6rfbU3v WnO6ODprS6xbpU7wFGg8 ASsshIX0SWHymH9wQB4s fnviq2mlOtSyML6apkaa p9hfPmLbXP4ynbd8g6jk COT2BKzyQEVeFsT1agK4 NDBcaGVhZGVyeTcyMFxm c085BDH4RpBoAMCzn0Ic U9IypVxoR58hrAqmW30f RLNzcIzrfC4jpAaukK0a PtJgNbZbNIf5zx40THr2 wiomnIvjJPx4vlBvRYQj THC0HAAwtEUfKJLlJ9l7 beDwEBCnMCP0EFDtfXSp MKJbS0p7ubKwQKE9LKw4 cnBhZGRmdDNcdHJwYWRk YjBcdHJwYWRkZmIzXHRy fTWgdUKihCJpfH0gkJet PDQmeLZkeA9eFPO0VNZp cmgzMjBcdHJoZHJcbHRy xq31JNSbioUiuWXosEtd eFIlQAR8HQPrSXLwXTUd CEY2KCQcIbZnejUfXBjw bGJyZHJiXGJyZHJzXGJy KHQ1EKUvEhMxmjKcIUyp bGJyZHJsXGJyZHJzXGJy BOG0KHGmBkNxeuAbEIqn bGJyZHJyXGJyZHJzXGJy DMG3WDNjSvRrkqNdQUgn bHBhZHQxMFxjbHBhZGZ0 I4xukXCbTDUcDNwnvVWn BUYvC2ywuHPwOSpqHQVl cGFkZmwzXGNscGFkYjBc V9kpOZOgEqLaK7RpcYw2 MDAwXGNsdmVydGFsdFxj eWKtQUO4ZVThGVPtNBSj DYG9TYNhZdBvpiRbXZse bGJyZHJiXGJyZHJzXGJy XEF2NVCsNmOpalWoYPns bGJyZHJsXGJyZHJzXGJy MUD6IHMyBcLpusRoTVvp bGJyZHJyXGJyZHJzXGJy HPC1BNVfGiCtbeVySUxk bHBhZHQxMFxjbHBhZGZ0 A6jhiMVaUIEmAVdgmYSa PZGrA5uvlLLiREimGDGd cGFkZmwzXGNscGFkYjBc K9haIJRnXbHvA1TenSc5 NjAwXGNsdmVydGFsdFxj kANoRWP9OPCiQUVxRPNh WYP5LSInYyUnfaAcDZes bGJyZHJiXGJyZHJzXGJy DFT0LFKkZlUafqTqSUad bGJyZHJsXGJyZHJzXGJy HOQ7PFHmXwZhkeThVHvt bGJyZHJyXGJyZHJzXGJy JIV4BDIkClWwspGmFPdf bHBhZHQxMFxjbHBhZGZ0 G4nquKQtHLMdCFksaXIn XGXiB2betZPxITmqNJVc cGFkZmwzXGNscGFkYjBc I3tsKJLyBfTaH5ZffKz2 ZhWhJEMrdxBirI76Tyqr a0FtUYIcRQQ6DDgeQIbb bFxwbGFpblxmMVxmczIw ZWfenibwEOCjLGfgS3vq FnRcISObjLzeSZrxr6Vp XGYxXGNmMlxmczIwXGIg MHHrOBTnqJ4iFnxtO0Tf iQ9lDEjuPddaD9zfMIYb b3UhsY8iGAxorBOncodj MVxmczIwXGxhbmcxMDMz EQsqC5lnHwDcVAWmiWkd FXgos0DcGQCgRDTaKoci frZmVAb8qzLqYQTfoIga nOJnHAgzqkSwwGkrv7Lt nyFsvZwiHCLrCUn6zhUs iwxpeWx3oQZbmWmmDFJz fTfsoX1fXnXuYxMeCTwl bGFpblxmMVxmczIwXGxh nmkbRAJcKNdrG0cpEsLn UGUmfXoxOShpp1GnDPRt USVlLrskhkQbHXUtO77h bGVjdGVkXHBsYWluXGYx XGZzMjBcbGFuZzEwMzNc aGljaFxmMVxkYmNoXGYx DCcwF1ppOsElV7LdVLGn IaFtbQWeY7cmJ7UhlMpn YXJkXGludGJsXHNzcGFy QQD1oSYiwlFifRWspPVq KCZwYTnuKXI6rYYsdhho qDJzuvspYZgrorV4AHQm YWluXGYxXGZzMjBcbGFu ZzEwMzNcaGljaFxmMVxk PbYoFRPgIDznK2nfYvXo Y0NzTGIpVdQqSpWBSZWu aXZlZFxwbGFpblxmMVxm czIwXGxhbmcxMDMzXGhp Y1rhXgPgEPCdxLuoHTxy d9FmQQOkRHXeNdmnpxJp CIy9vdVePQNdwDorvR38 Uukqce92ZPZpc5nmZTGv R2MzlCYoOAMtzYBtXMez MDhcdHJwYWRkZmwzXHRy cGFkZHIxMDhcdHJwYWRk ZnIzXHRycGFkZHQwXHRy mCImKDC1W1a1mjCdWLYl KSe7qxUrNNOsKgMhjDEq DMI3CHk4ViutprP5wSEn Q4g4YjetfqKpPNhcaUDh ng16WHXvhhYovQWtzEpk qZXjNXU1IHGoRYPzCXYm MNK0UAPsTzCivjSfTLvd bGJyZHJiXGJyZHJzXGJy TQU7JIXaJtWhviHsLVxo bGJyZHJsXGJyZHJzXGJy CBZ0OQFtBwYyhoXvPEgg bGJyZHJyXGJyZHJzXGJy JZU9DSJvJeQuntMzWGbb bHBhZHQxMFxjbHBhZGZ0 L7vdoTRmJPYmOSpczHGz SHWzU7ipmVSrZHiaNPFk cGFkZmwzXGNscGFkYjBc V5hlRIUdAyPuB6BfdYe9 MDAwXGNsdmVydGFsdFxj hIChOES9SSVbVLMuSUJu OGT0VZAcNeFhqgHyUUux bGJyZHJiXGJyZHJzXGJy MIO0KRQhBpEszdVwREjk bGJyZHJsXGJyZHJzXGJy FOA2FSTnEbRzrsWuWXoc bGJyZHJyXGJyZHJzXGJy ZCX5UREvLwOhwcMlMFhz bHBhZHQxMFxjbHBhZGZ0 H2lziCBjWKBoELgbsCCb UTGrP3vdaHClXTjrMGVh cGFkZmwzXGNscGFkYjBc L4cuIGVqFgWjO0KfqGy1 NjAwXGNsdmVydGFsdFxj dKWhXJO3WFQgAWNrCYSa ZFI9NHZbMxNurrUfOJvx bGJyZHJiXGJyZHJzXGJy OUG1LAGzEjWhzyCvNArz bGJyZHJsXGJyZHJzXGJy ARO0UCOlXuKongZpTEtk bGJyZHJyXGJyZHJzXGJy FNE9FYTvCpGdshRuEThb bHBhZHQxMFxjbHBhZGZ0 F5hwqZHjMEHfOObtsNEn DQDyA7wevXJlELqoWBGp cGFkZmwzXGNscGFkYjBc Q5ajKPXhGqGzN6BmxIu6 JrRcNBOtkoMsjF64Cyhh e5DrMQUaFWQ4GFdwOJkv bFxwbGFpblxmMFxmczI0 XHBsYWluXGYxXGZzMjBc bGFuZzEwMzNcaGljaFxm OZfpTlSjUMHaCTscP4qk EiUfN7JxFBNpItHmKC0o WeD7MMRmBTCdDDRkVZJV BbhbSVRJOR9KR2UwNXIy VVNTXHBsYWluXGYxXGZz MjBcbGFuZzEwMzNcaGlj aFxmMVxkYmNoXGYxXGxv D3uoAgJqT1IeDSEdQbJm nMFxC5xrW2AwpUieXHDf XGludGJsXHNzcGFyYWF1 kMNlrxMwbZkcxZwpsY2s ZjBcZnMyNFxwbGFpblxm MVxmczIwXGxhbmcxMDMz KVpkI4juKpGnFTHvuVvt LZmwh2TwDRTvOBJnWtmu czIwIDEyLzEzLzIwMjFc tUlroL5mKoUsIqRtXRfl XY2vXHZlP9jdcHRfCWNi JIOyX4uxBcHddH2vpTpv MVxjZjJcZnMyMFxsdHJj mTucNSziHLVldkKyyW38 Zwgxu4RoPSRnMEH2LVnj MFxxbFxwbGFpblxmMFxm igL8JULoDWrqPXSwGHXw MjBcbGFuZzEwMzNcaGlj aFxmMVxkYmNoXGYxXGxv X1dgUpSiJ9BxBYXrWnCg FK8mKM8cEYCrDUSqJXpu XGYxXGZzMjBcbGFuZzEw MzNcaGljaFxmMVxkYmNo BXCuGKvxA0vxFlXqZ4Cr VCMzRyCmeXEmA8awJ4Lw mXfxcuRzaXhlc9vbnCGs KXavj9RybgCtrVoxKBHj XHFsXHBsYWluXGYwXGZz HbQjmBjogS6kBeYgPcXb HHnjIH8oABLgI4srjGWh FVXwATRcD0shLwSwiO0u aFxmMVxmczIwXHBhcn0= Diagnosis (test code = y8hyhOUkIBBflWV0UvTa 34) ESEtk7rii0UgxMIinKBc KThacJPdckMdiv43wUM0 sC11BW2vJJUpJdL2VOIk ocX8Rql6DQYxNGJfwQDh E480k6aqi2lsqyKmfCH2 AHTjVZMvD9SxGD8mLPHf dCSqY18hzNRjLNL7KPWp IVDviMDfKSIjPBB9KHWz vDObY9dcEMRsQC4zosid MBlyVFlxVVHprRR8ZBJb tNOeQ9VbBSUmNBdlBDWr sww2ShKdGx8tfGCmwAdl MFxwYXJkXHBsYWluXGZz QuMaW3TaOBp6zQOfSS2w ZGUgKGxlZnQgdXBwZXIg izAvqklqJWA1L0wdpT2k GZfyOogbsHQ8IwgkSVQg D6JxYNEbxuxtqEfbYNua hO86PjLsWBqTOwGHGOSD QVJHRSBCLUNFTEwgTFlN UEhPTUEgKDcwLTgwJSkg TM3JKJYWJJfLY4PTFPUx TFlNUEhPTUEsIEdSQURF GGEQKXruAF4yXGQpCGHx mremFREaATkpPH4sc8Mr KUFyYTogxdKeRLrmjr4y bmFsIGNlbnRlciBCLWNl jIwcdH5cbN8tvGzifb50 zTFaPLJhHNSWcY04WxFh cyB+OTAtOTUlIFxwYXJc cGFyZFxwYXJ9 Comment (test code = p9chwBAsFLQtkRS6NfEz 9835) YJIqc2npr9YuhSVdeHAe SDlppBUphvEumt71vUK9 jY60BC6uWSCnQuT3DBHh ktQ3Sia2YELrYTYtbQPg H826j4omi1vuhdOozZR7 qUowPKCigjptXyA0WDts LPYlfctrFSu1VQjiKILk qWH7JKGacCVoW8JuAMGw OS2yokc7VGE5JAdtPIGh LeN1IWLwlJPoXLTvyNvr XBhag679AYU4RjRzDKHd cbRmzNhdoZ8mOjRcIFJN wVO2b4wyX9zxTLQtA1Ai j28xFYGvf0wytOfrbDsm ue4yUICeynT0bFjjkAL7 zCUuUOYbfUi1YAJ6oCRr DSraHNEnyL7xeOGzx63b lQI0LRx4PSZukLaoS6Om ZEL3BFv8nGBcp25dNdVk FU5wqQHgOjMkTCMvMXXs FeQ6tWRwfgQebNqhv45r aGFzIGEgZGlmZnVzZSBw BYW9DIYdVNFgoQShvYyx nrYaCEAjAVKrn28xGf9f bGljdWxhciBhcmVhcyAo VwIrCgRvLY5hQd28nJF6 aGUgZGlmZnVzZSBhbmQg Sn8kbIgsfRqmxpThzxOh adFhcwXoL32fsL8cARWr z3SxeOLxP1YnehAshDrm f1FyQcEkZEameiO8oGNv PHSwVWA4rzNyLYVyhjQn h3OySFZ4ox1kZWFtnMGk jO0qfC47sRClY1NuqJYu HZCoYZVeRHGnnjSaWP1k JI2isK39xUCzJnipaWMr hiVbyvSiADWpgRd1YXeg ZN41zJLcPWZkMNEjXURv aWZmdXNlIGFyZWFzIHNo c0ovJQPjvSHugsnyz5x8 TTCauCYwid5pKPybkoBw bGluZSBXZSBoYXZlIHJl dyrah6LcORzqfKYth1sf i2GjF2pglSulMAvmy7M2 VLforfVvVLUcu9BkONHv OLntUTfxPBNaTG9lSTSs kIFnp8VjQ7iqKB9tPADo JXRoWR7dpSMvzImxZEOd iNteORZqKFQqz6HyuWq7 PXCgi3HwU2OzPCjrS9Qp GRqbS3C8LcVey8Fdmhoa TPVFDGftbiDyw9saRFfh QkNMXGVuZGFzaCAyIChz kWQgoxzqJNMUN7jzCT3i KWTfHHBzPV1lMQ7WHRBo CBURLWxrHD5aNWYvGTNo IOoyhJd6HMDew5LlV7Nu LCBDRDUsIENEMjEsIENE MbMbPYWzTYQuaHUeqB6d NUJyDZWyHMZcnqWeCu0c kLKqkQGllGDlUbWbz9Jx V8HtUPKpfB42bzKfj18o IUQyoYvcO6CjOUXyPGQs ZHJpdGljIGNlbGwgbmV0 m12cf5Scw8g8kVpgWTOz UZOna5xttRW4nZTfFYRa iTZjpjNouMRwDxW9lNLb sfUlrXxuk45hLLBoOFIy cuHqJw1gfAPmjKDjwFAm MmYtd0StQ5jyPfstv7kz d4JsZVLbfc0ghEGdukZ0 oC7jRYIbyWSmx8IwDFCn OTUlIGluIHRoZSBkaWZm dXNlIGFyZWFzIGFuZCBp esHky94gTQ8jUMFuZBDm e6axxWK2wTXzGJCfSNAk LiAgXHBhclxwYXIgQWNj r8MipG0eFTLsJDAcFBPg vZWlaOR5MUGssyLzq6I5 ARMlccVujKB0ZWk0GkRo TWk8XPPdo56tOZ9thRox lDVze2obz0EqHPDlKQBj mThpQC1dj8RqVIOsWKcc LT6eO9M1tIMbYTZepgND yFU2GBrlODDdECQirANQ JRWlEGJhahMuCTTsW89x WKDaAm2VALcINxIBWY8c VGhpcyBzbGlkZSBoYXMg rv83SSEqZY4rk2FliZP0 pcD2ufCoh8ExuoR7vOZ2 XuakvO5nZIgkxcNlGDMk r4CxeR6fZSLxYLEaUULv fNFqoOX5RTIbzcAiz1P5 JZDmhN34XWH4gG2rYRIs hAZrlK40tl6gfFJcb0L4 vPfrLOI3tUGaJTYpj7Vt HCDnUURjh2PdHDLqn01y YPTbQKzpTNS7z8KrgsGi w76aw6UgfPvfzxTztKEe zF7esw5aNTalMXFbx1Gg eARjc8yoh8AtQKViKZVx uwQuemJnCv5bTCfnAPKg pIPcMVYmf44vdQ4jzZGz tiRvGq8bHC5ewq73tUVb AqPtYC6iNRTcJG2cSOAY VOBxGB5gJLUcwBXwe4Sw eWpaXlRfYoAwe2OqtXya NJQ6FE81kuGonbYgjFqs NQ3jKWvyPXqrtkNqjm22 RGAtKU6em7HydJQlRQUd kGPyMNLwBTPjn9gbA1y1 u55tgCJ5BFKwpC7agNSu j4ZsvvT9qFQ5OguegZ2h BEncvuMtDBFue2SqfX4x IHRvIHRoZSBzdWJtaXR0 VAAguxEra6Z1TTGabUJl xdKqJ3ScN6DrsL7bc8p8 fVAydIDfgUWebpA5nG4a IChGSVNIKSBzdHVkaWVz QTlkvbXcv0MrYSFqIPF3 cbKxr6Xrk4NkYx2mNLee WR3KI2fwSEIeRZjoGYOQ TDJcaTAgIGFuZCBcaSBC E8a5TIlxFGMqXLVqqoMm K4HiHT03ld0gR9Jse1hz fNPhKIP2DOK6OCLaW95h wFLyZcQ4kZJ4GFSegK0z cB1wLZMfbfzkWPYfgBRj MWYtG4pijEYmoMZXjUHy E0RsAu83BGplHHRGXZJb clxwYXJ9 Disclaimer (test code = k9kreYJqCRWyjLMwQcPu 9844) LVCxHHPze9ytLTKoqHBe ZzEwMzNcZnRuYmpcdWMx OLRaMfNhb4omb031aUEi g8zbGKBvWqF9sFNlOGHq bZAtK969NOPaKXnaw0ek a9PrCZVrlEClp5V5ZQQB dwtnlBl9hHntS14td7F1 JvaeM6lsDVTpTXNjM7Kd CQ6fWHXhOrx4QVZ4SMR6 GZGeNBQbF6LdPR9xALFh aBWpZHn4d1saqClvMTKu BGD0v0fgLMrddjHnYY4n sv7zwPy4q8olxfFmVTLn OFEkyHASGYIaM3YtmOym Oc6iaQz9hSsyMgoeRYR1 Uig6MY6hho43dee0nGtm DTKzwxshMjP0XIrcTBCq afmoIEa7HRujVFIubGQ7 BSUqkAVqB0AoFZDaTW7r pfz9FPB3VYwmVMJePbB9 NDBcaGVhZGVyeTcyMFxm d104LGU5UtDzFR5rO2Fs g7I3wH6brIEsTQPjsCEr BrTtATQhvp4mmCQwKMpb g3IuIPP3hgZ8xJZjiRSi FBWpZD81Jdmkh7YpQasq LND9RTXpssUeb6Axo0pl KxAaopSsG8biE2DnHMUy XGZaNEBoPlPycrBhh0Wd p7VqdGCwoEj4q0ypCBGh EHVulVksy9rcPNV7ABQn X9V7vAOia1iwZFurNDAu mHY8atV0SHAfhJWkN3Lh cP8jBBLsDG2fdeb4p0uk UBQ5RHexQUBeNnX8rgU2 NDBcaGVhZGVyeTcyMFxm n113SBD3GfAwBLLge6Si T2EkvRohX13lpGbiL84p PADqoAenlH7auNdrjD1v ZjBcZnMyNFxxbFxwbGFp mbrwSYohvpU4WNirehze CFBcHYnsO6gdTgDkRUIt pYfnVWibb0VpEIRyEHUk OtbbzjH7VHNCh51zZESs g1FzIGRioC3ycHKbOZzz bmOjbJY0UHqsdzWvMgEh kqAoUKJhmA3uSGDwOR3n XIMsatDqwn8moqIfYWTk BIZiQ5RngpgzkGakfvXx PHXwnm8ouiAuFRN2MUTH LQ0RVWIqAOKwt69kHBWc hGhryG2jcFYhqlSlSODe r4SpnB0gtKUOANBpA7av UZ3hTIjut5QerBCnbXSy bNL5MWOiv3ViOfWoswSh yCVqrZRrS8AgpPtqK9kp WQXqPSTlxqCxrFOpt3Jh UAQozRQ0rKDsHV3LYdMM d20pOMQsEPATpiFkAXOj oUzdbCV7ngQ8mV5aEtRZ ZiBhcHBsaWNhYmxlLCBj q443zt8aluL0CNPeZUIx orape5KxRRUaJNYciS51 JWLgZBZjiw1xdxfuaSLq axRxI7Gxnpm6iI2bKKCr YWluXGYxXGZzMjJcbGFu ZzEwMzNcaGljaFxmMVxk YkUdCMTiZJdlH1pqUdUc ZnMyMlxwYXJ9 [facility] [place] 2021-03-14 14:07:55 Test Item Value Reference Range Interpretation Comments Materials Received (test t8krqLYyJIQnwXRrWzWd code = 9973) RKBfBZGqd1woUZEkfLOr ZzEwMzNcZnRuYmpcdWMx XQZzVbOcv4bhm251tWCc j2dtUCDcAgK8mFIrBJRr cTBhE776VXRaMVjch6kk a3XuRAIlaCBoo0R0AZWR ilzjnUs0yFffZ14tc2W8 ZjksN5qxQWVzBGRzX3Hd GJ6jMKWpCsn7PKY7AIB9 BBJuWCIjY7McHU9lGJPz yISlOYl7h2ravZwcDJOk KVY9j1otKPgwytBoAZ9m cw4tpXb8i8wdivSnMQNi KMYfeAUDQZSsI0VakXsk Yj6psKx8mJwxZyfiKQB6 Swx7BS9wvy38yur7ySnx FNGvzajcWpW3KLhkUFDe metgRFn4ZNkkOBBlwQhb MFxtYXJncjcyMFxtYXJn tAT8DPIblOLsI9SaMGNf MLdbWSAflif2JtSrLd9k iMBxzZbtELzhd0rhk8vh mGTgJyl3QETvPfFbOpjj MLkhy8Dev9ejXWZsfa4k JMF1pUTlkCuvr2A6lNEy YOHcwXJqeqYhAPBgjx68 jLQheFLgfYLfdc1cqzRr sWFblUBgJWW8qCYwfbHj SNMlkJBvVQOuHM0dcGXo TMKcyW4hzjiwHZEpZuBr jaakAKDhdTssegCnCt8c iBicRAV6DPqdI2lwtG5z RyB8XVggH1gulP0yZHx4 FPgsuDY9TNVpxJ5nWY4n gaecn5zrTbNrSQ6oksjd z1jeQiUzVI6pgnn1d5yj JHZ3THhjVBXjJiI7elP6 NDBcaGVhZGVyeTcyMFxm f680GWF9QaEsWTZfd5Er X8EotMogP63vuVtsW12c MNVmuCucyI3uvMsdjB7q CyXhTmBoAVy3zs87OPj2 odydxLndTOs6hcUgORRa CQK4MPRrjVTqJJFuI5j8 ntWiMMTsOIA9DBMzvGWm ZBSrX4g4wkPaSIH2UGp2 cnBhZGRmdDNcdHJwYWRk YjBcdHJwYWRkZmIzXHRy uIVfzBJuuWBcxC2ksLaf HQKueFFllY8eDOO2AQIj cmgzMjBcdHJoZHJcbHRy fq52VHAjatOsuBZudKiv jMLtZQU6KJDeZSGtNVAd CJX8EFUoUoQpwcGtKJpn bGJyZHJiXGJyZHJzXGJy YND2MQFaPnCxzcRpOGkl bGJyZHJsXGJyZHJzXGJy QYL7NQDcIlTnxcBuNIyz bGJyZHJyXGJyZHJzXGJy GYH5BMBjBnJlirSoPEdf bHBhZHQxMFxjbHBhZGZ0 F1fvuEYpVWHnMWognDCo DFThH2pntINiENkxTVBl cGFkZmwzXGNscGFkYjBc F2hmNOOkRjXhR8EsjWu0 MDAwXGNsdmVydGFsdFxj qLNcQQZ3OJLtMYHyMXRo LDD2CIEcFuNcbmUtXOpc bGJyZHJiXGJyZHJzXGJy EID1TLAuRpHequTeVSfe bGJyZHJsXGJyZHJzXGJy PZM8DZYtCbVtgnBiASxh bGJyZHJyXGJyZHJzXGJy PAP6OIAnEoVujuJyQMie bHBhZHQxMFxjbHBhZGZ0 N6hktXQnCKQmKBuyxTFv XOYvO9akpOInEOltHQOe cGFkZmwzXGNscGFkYjBc N2ebMRNlEmNrU4VaePh9 NjAwXGNsdmVydGFsdFxj kMLhBTT4TFRaRQFuPFYl DJC1UMIpTzYhgbQuKIbq bGJyZHJiXGJyZHJzXGJy LSI9KYLnVpEdniQfKFfd bGJyZHJsXGJyZHJzXGJy GUL2WVVsYwTkafTpNXct bGJyZHJyXGJyZHJzXGJy LZB3FBOdYnKtosCtDFvv bHBhZHQxMFxjbHBhZGZ0 W1rtdBKrVVIsXVauvFDo MIXfN9hquTRnHYqpSGAt cGFkZmwzXGNscGFkYjBc Y6gfJWJoTgHcI6CnzRe1 TzZySSVnifUloC60Zvci c6OzNEVpEPM0KXebROno bFxwbGFpblxmMVxmczIw BGsxofdkYZRuQVgmH2vr WaUrKMTgvUbkIRjuj9Uj XGYxXGNmMlxmczIwXGIg GRJwCKFrrF6lTkryP8Sd lW5hGPhhDzpbL6abZDEt w3NbiA5hUOwsbXOnhewq MVxmczIwXGxhbmcxMDMz VMzmC1arPiTaDWIsfQsx HQjgb4TjRHWgZCCmUeby yqUyNQr0yfSzMOXajKqn hZKoFMgfuuYtwOkgv8Pu hfJvyUqzAQEwTJw4llYw upndcHx9uWWrjEviIZTf eSsrwE5fCpYrBxOkLXny bGFpblxmMVxmczIwXGxh dahlUWZiHGxhW3qmYoRv DNTglKumRLrdh2SbFYIe JBIbIknailStITWjL39o bGVjdGVkXHBsYWluXGYx XGZzMjBcbGFuZzEwMzNc aGljaFxmMVxkYmNoXGYx KMwcT2utFnBxQ1PsMOCb IeRxaRShU5vfY9OqbXuf YXJkXGludGJsXHNzcGFy AHQ0qYUjhpAqfXCpbJMd SVBgCHknVJD4yEMtuegz iEXcxohaIHatfiL3UQOp YWluXGYxXGZzMjBcbGFu ZzEwMzNcaGljaFxmMVxk XhXpJMXlXUfdV8kgJwZn Q1ZgINFyQwHhChKGXSFc aXZlZFxwbGFpblxmMVxm czIwXGxhbmcxMDMzXGhp N5kfXdVnOHGsxEqmQMjv h9CmNTZbXACzUdxyzuGj IDu9vzGwZFZbzXsbaC82 Qzghfx04UCBfz8pjMPSz G9DxkRCfDNHekQAmHGul MDhcdHJwYWRkZmwzXHRy cGFkZHIxMDhcdHJwYWRk ZnIzXHRycGFkZHQwXHRy dIIpNQY5I2h2nmKmNBSa NDk5gzYhZIUbKjNwnMEh FUC4WVo0DdgqmiX7dIEr N0n5ImnthvCvZHbdxZUd tu86HNIojyZmfNJhaFdy kUZvUBJ2QBOnHNVwZIHm MGX5DHFhOzOqbmPkHQrg bGJyZHJiXGJyZHJzXGJy AZF0FPJySsYpfkYsDUpy bGJyZHJsXGJyZHJzXGJy WYU0YDAyOuTaadLbIEyn bGJyZHJyXGJyZHJzXGJy OXG2JEIcKqSjlqSrWFvm bHBhZHQxMFxjbHBhZGZ0 X3gbaXUlYNHgJRqbuWAr OBYiL0ghvKVqSLkbAMMl cGFkZmwzXGNscGFkYjBc K2erINQcGbWjC3AxnIu0 MDAwXGNsdmVydGFsdFxj oTHjHFY5SJIsAAMwBSPu RHG8ZZQsZzAujtCmBKfg bGJyZHJiXGJyZHJzXGJy RNK8UPOmUrAfywNbFHeq bGJyZHJsXGJyZHJzXGJy LFA9TJFyGeFnopXtWXbb bGJyZHJyXGJyZHJzXGJy XAS5ZXKfYtNnuoGkCJcd bHBhZHQxMFxjbHBhZGZ0 P6bgsMZzRZVzLTfdgRYe GLQnR2oeuDNfQAwhOQCh cGFkZmwzXGNscGFkYjBc Q9bdSEYdVeDmB2OfkXk5 NjAwXGNsdmVydGFsdFxj tBBlERX5WHKhGJEvROMo WDW2WATlOlSxtbYlVPmr bGJyZHJiXGJyZHJzXGJy HUJ1UCMbTfNcikWmSLry bGJyZHJsXGJyZHJzXGJy YLC9IDRlUrMqihZnEPqp bGJyZHJyXGJyZHJzXGJy LZO1KBNmIuPpqiHwRAii bHBhZHQxMFxjbHBhZGZ0 K6qkjQDhVVXuDJlyoRLh MWNaZ1utmBKwWEcaDFAc cGFkZmwzXGNscGFkYjBc D5mxGCSqZvDhE2VyhTu9 ShPeAOXtviSciH73Alny z9JaLUIzJCG3IHcuMTcj bFxwbGFpblxmMFxmczI0 XHBsYWluXGYxXGZzMjBc bGFuZzEwMzNcaGljaFxm AXnjPqZuNYCiSFwkS2ss MsOjD4EwVXRwWcIlKG3a AoQ7JDThFKXoXJQfNOWT ZmadXWEGGR0VB0CnFEEe VVNTXHBsYWluXGYxXGZz MjBcbGFuZzEwMzNcaGlj aFxmMVxkYmNoXGYxXGxv N7lqXwSzO9YkQSZaUiMf dTLoK9qvV8HmuXhtPJVj XGludGJsXHNzcGFyYWF1 iIVqzzQjxTclkWietT8j ZjBcZnMyNFxwbGFpblxm MVxmczIwXGxhbmcxMDMz JGfxX2xlGoYxQGQmpCut QKrjr3UcQBMdFPPpZems czIwIDEyLzEzLzIwMjFc oLmteT2yNnMzDxMySBin NK9vRICmU3yisDFaELAl TCJlV3tqPqLkrK0ucMyu MVxjZjJcZnMyMFxsdHJj kIcrAPdlCDZiwqOmuC20 Qewdr1EdFKAyRNF5PWyr MFxxbFxwbGFpblxmMFxm wbL2RDKiFKzdFQTuEXEl MjBcbGFuZzEwMzNcaGlj aFxmMVxkYmNoXGYxXGxv G9fdQwNgD4WxHEXuYnUp AF8pNE0pNLIoOYNqYCaq XGYxXGZzM[facility]bGFuZzEw MzNcaGljaFxmMVxkYmNo JXXqVFwkM9pmNbPuS3Id GXUdVtXtaFUgF9beP5Ok rWiqzkVgtCpch7zwhSSi ZFtic1YdicTseRlzKISp XHFsXHBsYWluXGYwXGZz TxAtmTecnU1zFcLxUiJf PLzrAO5bZMQwM2aomXCq LLQyGTEzH4flQxYazH7p aFxmMVxmczIwXHBhcn0= Diagnosis (test code = y5fuaPEwAWPbyFJ0EuMe 34) YTFgo5adv5XgaMGgiACs FCvmwLJliwPjsi84gVB6 kA42BM6rMRQxLqU9GRWm uaT1Cgq2JEPvFFJhyOIw U382y9ynw6orvuNrsXG4 LKYnESFeW4DnQX6bFKZo rTDcI30veNGoDVO4TLIc MVPvrYHvQPWnQXL7SLKi aKLpS7ocZFVoAF6enhmc EQjpLZyeACWluJC1EVGl jZPmM7IfMZPlVCrzKKPk wfz4GdWzCb5xzNBmdXuy MFxwYXJkXHBsYWluXGZz SmCtI0HgDNv0eYWbFZ3k ZGUgKGxlZnQgdXBwZXIg rlWyzayoUXU7P7tcaD1k EYmuKuphoAC7WamsVNVw F2GkHPPaidbscHjxHBos yH41DhNkFRtCPyQYVKFV QVJHRSBCLUNFTEwgTFlN UEhPTUEgKDcwLTgwJSkg NL5SNKFCNXcDZ8JRMPQw TFlNUEhPTUEsIEdSQURF QJYYEEkrQE4aTJPeKUVf jgcySCPxRZwoTV7mt2Or LSNwONuryeLoWKxump9u bmFsIGNlbnRlciBCLWNl wVzapG2vuW7aaHgbgs23 lACkHGEnXSISyI92BhIn cyB+OTAtOTUlIFxwYXJc cGFyZFxwYXJ9 Comment (test code = s6mffPMjUFCkjCD4HfHn 9835) WWGub4bvj3SokAUetALn BDjyiXIjslZnib63oCQ0 nK73RQ6zYJKdFeZ5EIXr xnF3Jce8ISLyCACmnIPh N474c9qtc6mxnyHxqUY4 cNaiXODdxavgPgO9ZNiw TYGsnqtyCTb1SKkwEWMl oZW9DVBqaEWzU7JqWRPw RA8czqm5WUD7JHsnJOJq JkQ6MFEsyBWkVJHrdXgj KVivl087CIH6ZkArVDTu xdFbeTitpN3rRjHeRSNF eRG4g3fwS3igHRPeG0Lq c34uDHSys9hsjBbsoTke kz8nIHKpvoC2bUbzwZI3 hATbUYShaJj4OSW3yTXm STqhZXIvjP4cqUMxf53m iTG6ZIr9JAPczJddM3El ZQP1VMe2iOCwk63oGkXg KL9dfSKtHiXgGCUlCTDg RmG0sDQtssQzrNgxz96x aGFzIGEgZGlmZnVzZSBw DKQ0ZHUaFJWwqOCpfEik gqWoSLScRUKsz45yRl0v bGljdWxhciBhcmVhcyAo WnEeDlAeYN4mOs90dKV9 aGUgZGlmZnVzZSBhbmQg Vl2xpZvroWsjhyFatzOr udGiwaLmA33jhN6hKIFo x8HxkUBeW2TqeiKrsEep p6GxTnYdUWtxrzP3qISq GAScPEC9euYeONHlomSj l5FdKLY1ll1yBVCpeMQz gG9gmY17vDPiH4HlpKHd LVLuCPAkLGJspnDsJK1w ZW0ndE35gCPbCymlqTVu saXsqkRzXOZmnEl9TBwh ZP03jQGoMIJqVDOeMXLg aWZmdXNlIGFyZWFzIHNo e0oqZYRgqWXcnfxqn8n6 UNRqeTYztc4qGRrgniGu bGluZSBXZSBoYXZlIHJl lfgjn1KtYXugdBTvt8zh u6KoF8ezeFskMDosj7D5 LVbkzsJkTUKqi5ZsEHEl FCboHWnfFSKoZC8uLRSh iSJnj1EpB4cxDK2gFBLb LZStEC3qwDBjqKxuFDSl kUctKUMlWOXoq9CewXx1 UYClc8YsY4WbNVfdH5Lt GZvwJ8A2YhCjj6Rplylg FGXLWSdcqyQxc4odUTmp QkNMXGVuZGFzaCAyIChz tDGmjhouRQPOX1ujFG2s QIGgQMLmKY1nGX8SMEAi HOOTDRtiGG4tCDVuVUZi QJbyqKx9XGJnv2IbW4Ii LCBDRDUsIENEMjEsIENE PwXaGHPcUUOwgYJmmW9o DEPeRVOcPFMzheGnIw3p rAYpfECrdFHsZlNjq7Eb H7LtAROvhK89ohCmf04w BQXpdOftA5BgVQTmLAYh ZHJpdGljIGNlbGwgbmV0 a16xs8Ldj9b6cQxhPJOv APKik2yojQL9dABtZMTv cMNowuRtiYMrFxB6vAPf waBgwUwzy96fWZShBRQj yyRmOq4pjNWklDVgmORf FxMto9CeB7tyWdtme8js b3XfZYGahl8ucGUjipQ9 tI8zQDNrcKSja6SiLKJv OTUlIGluIHRoZSBkaWZm dXNlIGFyZWFzIGFuZCBp soKkh59rWC9oKWGrIUPn s6synNK8gBDbCJPhYNCm LiAgXHBhclxwYXIgQWNj v9EycF1tTFVbTINcFVKd uQHvnGK2JITqpvUjj5R3 SKVabjCfeXR4KWj9MpXu RBf6IVHnv74uGD4dnPfp nOIph1okt3MsVZRiBPFf fYqoPV1ga5EuIAOwNKsc AA9cY4G5cASmEOOrtoWO sBX8BXyiECDbGRIwmGYP JPDsJJXthdHnTCTgZ78y KRSqDk4NCXeVCiBQRF3m VGhpcyBzbGlkZSBoYXMg bl21XRXjZP5uf7ZfsPP9 huY8jeGsi8IykrS6fEG5 ZjblmV9xBPvwcxGgOBIa b0IgnH8oXIEmNVSxPYAt wMVipFU9DHKrkwAni8J0 ABOmsC35IYV8pS9vWEWr pZRhtA46oh1xoMKjb1Q3 uWddBLP1qMLiYLCdh0Sd BJGlLZWjw1JwGNVbu60y XXDePSzoAQG3q9EewkBz n40rp4DvxKgwoaXqpSTo aM9cge2wGIruDJBej0Sw yAOmz4pcl4XnZLKcCBGl bzZzggOoKp0sIOplDKJd aJHdQJMkf93xcH9igTLa qiFmNx4tZZ3crg42pOPg ZlXhHD8eJMLhGC4sZOLC OVGxHJ7wMREqnGAzt0Bk kCedMzZtNvVgr9JafHjq OEJ1UX87ghYwgaBcjXyl SF8kXYxcUCvgmoCbze90 NZWrOC5ee7TpjDByRDOs kCYjMLYaRIVyc8dlL9x9 d88mcUR6YZQkrM3qaQJx a1OujdD0cHF8AlmmkF4d DUoafgOdFTRly3ZeyH3i IHRvIHRoZSBzdWJtaXR0 WKAiefHwl2D2QXMhsNZe bfUvK8IrD1FzyS9hk0m9 iYRuzUDmpUKlnxQ6iP4g IChGSVNIKSBzdHVkaWVz JUydqvRci7IbINQlILD4 lhTjd2Zdn7ElPk1lVOez FU6PG3ntJZAbNQxcQHVN TDJcaTAgIGFuZCBcaSBC Y3f8MHruIXEfYNBnnrFl A4FwWO02qi6bX4Dcu1yl dKEpVCL9ZHO1AQDpO06i nTDgXbU6vEL6OYUgqN6b vT2qCFMlhnjvWIXhaHDb QLYyJ5nbrUQeaXZEoZTf M6KiTi79UDojCVRGAUJb clxwYXJ9 Disclaimer (test code = f6pmsBZaLBKzhVZbQlZy 9844) HDSfGCLng0vkVWGdeFXh ZzEwMzNcZnRuYmpcdWMx JAXnSxTql4ffu665yBQd z6spNRRmXrZ0lKWaKLVp vXLfS121EFTvLShoo8ba t1MkZBCpqBUlv6D0PTPM mhfwhLy5xSprM50wb6X2 ExknZ5cfPHXePNEbL8Zf GP9vTCHsTer2DVT9QMP9 CFVsROOyG7JeTG9cVKQw lBIkNLd3d5elcHmrGSQn PVY5d7dkTXcujfPbBZ8z tn9vfQn8t6bfcgGiQFSj NGZtjEDMCGYzP0SszMgk Rg2btWu6iAryMmvaTDK7 Amg7WI0viw16rrr7nLoj VCBstwqhZcM7AFsqXPKp jjgpCUt2MMcpKYDkvQJ1 UHObcKOrL5PmQRJwAG6s gpv8CYX5ZNbaEYBaXlO1 NDBcaGVhZGVyeTcyMFxm z655XZX6OlEjXU0iA4Te t4F5oJ8elPZnGMSepQSu XwBtLBTtnr4hzLJaXRpl l8VvSMJ4cwP0iESwrCNb TZUdGZ82Fcxve2OcWixf MIM6ZSGsurCch9Zki2fj IcZhkmSwT4oxM4ZvHGPq VVTjLMRlGaNsywWzo9Dg q4KndABukXb1f9zgPAMz IQMjdYlnd4puQYO2UKKp M6W2iMIyw8rdOTveHRFb zSZ4olJ5MKUmtTJgP4Ts sM4qWQDfEG9vwiy6d5qv BBY4WFrfIUTkMfK9olD2 NDBcaGVhZGVyeTcyMFxm j922LIK6KaVaSFGox0Lu Z0LbePiiY70dhIpmL43m GKQdsPqrsK9anFbjeC5w ZjBcZnMyNFxxbFxwbGFp tmqzXTqwwyK8YMdixybh CQIyXOxaP8ihUgTtYQYz iTdsDAoen7FpNIKaPJAp GnttnsC1XWILf11uRAMq o7ApWIDyzM6juHIuNVru kxMcfQT5YMqrzcNuSkEj piXkDAXbvY0xVLLaSI2y KVMgzhCams3ylnPpNPLr NNFiV1WcjtumtGqafaYa WVCljy7fryJhQOM5RCVC YN8VKULrBPUhp61rDALi aMwfiU5irLMkikHgMDBk h9KzjD6nhDZCVXAvS8fw NZ6uIDxfb1YchVBhyOOx qWI6CIAob7HoCsJtdeKv tFXyyKVvI8ZljJgjI4qz DTUtRBFkndFcsSPuf1Bt MYIhzDV5nLNrUI1MAoQR m85sRFYfISLMgdIaPZAm aPhqgZH6llO9qV1sDbMT ZiBhcHBsaWNhYmxlLCBj w041az9jeyO5EZRbIDBm tibnh0RjNAQlFGWxyM88 RAPiGONpbp0zuwnxsEJw ewNcI8Yoxir2yM9tURCo YWluXGYxXGZzMjJcbGFu ZzEwMzNcaGljaFxmMVxk MuAsCNXrCHscC4swTlOv ZnMyMlxwYXJ9 [facility]ation 2021-03-14 14:07:55 Test Item Value Reference Range Interpretation Comments Materials Received (test c9bkzLVtGUWljATyLjJr code = 9973) UTItSLNqd0mtHCWpaNJv ZzEwMzNcZnRuYmpcdWMx JLCyLmBpr8cal643uGIu d9geFXWgNxA0mDReWGLz qMObB939VYQcSDjoc2ot i3SwDVRvbJEyb7A1LTGN euaidLz8eIioS89eh6A4 XckkD1vhBMDnSMCvM7Go EK4cFJZaWpj9JMD7FAQ9 SJSiHCWsC1EcWR7sAJMu wUHeNXw4l6rgkZqqDAAv BEQ2m0zdMMllqnHpSI5j fu6jwQw1t3loaeVhKAXv ENXigGJBTRJwO9UrqEnr Yl7odSt9iDqjTjbgCPB0 Leg7IY9uop73snv9wJnd YUHtnbqtCzB7USabBCCp wkpbBWq0XWebNANqdFsn MFxtYXJncjcyMFxtYXJn wEG4QQHyxMDbA4QqEATd PZpoOEYaedl7AnIdEh9q yBBofZpiOWupe2zmu8sy mABtLqu9JHAyNqQeFycv VZzgj9Pwv0hkVTSqjg5j NWT0sSJheAhjd8H6vFAa SXXkgVYxdfBmGMWywu29 mYXajTUpnBFlbb9mvoFn xDQnvAFsREF0fIGxgaKf QAAfoLOaKTCfKP9alWNh VIMsyC7nygzjHGMuEtCd glthDQVixTfcjuQtSc9x qXmoQXV6OHwjJ9tpuS2a KlF2FTrmK2mxzB9mRPx8 DSpcmRJ8UIOvxM2hMJ1w otnou8tlRyWeCT9fkter e0ngWfCyGQ1nvrt7o6iv GIX4GVgwJKQhBlN0njV5 NDBcaGVhZGVyeTcyMFxm q902LUI1OkEkFPTah1Wm C6UzwLbmY16uuFooV45p NYIzcAqaaA9jrPzinV2i QgGtKrAhVOg2tk35UYw1 olepgHixCNo7goFdMAQx OCH3HMYvkJEqAEVeO6s0 qkKdODYbHOM6TNQuhIJp VCQhG6z6vyYsOUV9MHq6 cnBhZGRmdDNcdHJwYWRk YjBcdHJwYWRkZmIzXHRy eWAzaSLvaSPyaK4crSzf UCWzmTJsdW4hOCI9LNEq cmgzMjBcdHJoZHJcbHRy eo26ADFdcuJkrQBbrKmv xBSoSYS3HVAoNERdXSCz JTQ2MKXeGkKtaeYwXNqb bGJyZHJiXGJyZHJzXGJy CQZ1ONTbHzRcafDlKTqf bGJyZHJsXGJyZHJzXGJy MOQ8YXJdTkIfvtMwLHcx bGJyZHJyXGJyZHJzXGJy LAK7CADzTlIlvjKkUZlp bHBhZHQxMFxjbHBhZGZ0 S5lqxPNmSMTxKNsrzPLo UCIuU3vcwODkNEsnKYRm cGFkZmwzXGNscGFkYjBc Z5fpXNIhMdRcM5BznSv3 MDAwXGNsdmVydGFsdFxj iJLlYZZ2YSTxHNRoEUMv FWH0CJRmIdUheoDtDWle bGJyZHJiXGJyZHJzXGJy PSA5PTAkAlCqepVlGLmd bGJyZHJsXGJyZHJzXGJy IEP2VNQnDtGnfiPzZEfy bGJyZHJyXGJyZHJzXGJy FBU0BTHpSjGxhfQmHJdd bHBhZHQxMFxjbHBhZGZ0 N3tsdBOeRJQfGXlzdTHq DHGjN5jhpWKrTQesHZVa cGFkZmwzXGNscGFkYjBc J3haBWTqZdUyS4MzaLa6 NjAwXGNsdmVydGFsdFxj xOMkJVS0KZZyOSFmAQZa CIC1RDWmAqZtpgUvVRee bGJyZHJiXGJyZHJzXGJy SIS5BNPeApRtaiKkCNyr bGJyZHJsXGJyZHJzXGJy XWN2NWTtAjCwxpReNDrt bGJyZHJyXGJyZHJzXGJy BIP3NFHfOkXzstTwELih bHBhZHQxMFxjbHBhZGZ0 R9oytPYpOLXiQLtwaRLo ZXKwU5yfpQRwQCowEQSl cGFkZmwzXGNscGFkYjBc Y4tbBBOqMoDnI4JbyWb3 EdDlBKWgggCkzI85Otkv w9LvYKHtFNX9JCbjROta bFxwbGFpblxmMVxmczIw HErexlidNIAzAZysN5oi EwFoCYTqyZvcUUees8Jj XGYxXGNmMlxmczIwXGIg SRNdZSQaqW7aTajnJ3Jj lM5lMLzaBffaZ6eeWFEr z6WerW0cXNqkoUIewyvb MVxmczIwXGxhbmcxMDMz QQbjM5xfAwRwNQXazJfj CLphs9TsLVBnANUtLqpm qjUqFFl0pbAhIRRtbJxf hVBwFCxizsBaoLnbx8Sj ccFdzNdnWFNoEJj3gcPb qylerWj1mWGrnJohWGWj rCrrsA3gPzUnSuFrEUwe bGFpblxmMVxmczIwXGxh aqhvWUFrUFveD9wvFqZi URCxxOidBZqkq5UjRPUh BOTqAkhzctQeZKQkA13s bGVjdGVkXHBsYWluXGYx XGZzMjBcbGFuZzEwMzNc aGljaFxmMVxkYmNoXGYx ZNhpM8pkTeIpT6ShZXAd BfZitPAjB3doU4EloMvj YXJkXGludGJsXHNzcGFy AQE6iCKvsvZvuDLieWRg MBWtGRdyJLA0eBStdpth xUEsibeyPIjzwhD6TDXu YWluXGYxXGZzMjBcbGFu ZzEwMzNcaGljaFxmMVxk YuGhAXWjKKjyG1ieHoLa Y8ArLHZsOeWnMqXKORMm aXZlZFxwbGFpblxmMVxm czIwXGxhbmcxMDMzXGhp Z6iiKhNbXVVeyPlmQUxz u3EwUAArJXSoKsbpraFf BLk9hfVqRKEftAtuqE93 Derrrm23SXGud1yjYOIx R7HdcDQfJEAupCKvECgw MDhcdHJwYWRkZmwzXHRy cGFkZHIxMDhcdHJwYWRk ZnIzXHRycGFkZHQwXHRy xGVrPVM6B6n3irMpNUSc WQq8kyHhBLPrTlLfnLKl CEB9SVc1BvucpmS2wWPh F8c6WitrwaVnGLfnsYHm em24TPByupVwhLWjcCwv ySZlVBO2HYAvHNGbYGXj HHM5TQSxRbYclhMbLSbg bGJyZHJiXGJyZHJzXGJy PME7BXHzFiNkjhZaQUza bGJyZHJsXGJyZHJzXGJy PDA1ODKjEyDiukXpOKfl bGJyZHJyXGJyZHJzXGJy UPH6KQPyGpScnhPoARmr bHBhZHQxMFxjbHBhZGZ0 D1lgfQLiUOWkGPsliYGt XSTyL4bovTHxDMvbDYDh cGFkZmwzXGNscGFkYjBc L9rcNETbXsTdK4LmfFh0 MDAwXGNsdmVydGFsdFxj cDWlFHH5FFFzEPBbSLKk LXL4ULRxHsExchHyXUdp bGJyZHJiXGJyZHJzXGJy NYO4HNByGnFtkaGvTVwu bGJyZHJsXGJyZHJzXGJy UVT6TBVlHcEjufDpMDyb bGJyZHJyXGJyZHJzXGJy TDR3IFLnLrOqbpWaXBex bHBhZHQxMFxjbHBhZGZ0 S3ffjMQaIHUtGRsuoYWj ZFAjC9wucUZxZRzvGIHh cGFkZmwzXGNscGFkYjBc Z0kzJTKgBtJaG4HljMb6 NjAwXGNsdmVydGFsdFxj nOSjDYA7YPDsLOVhPNEe ZSH8IWAyIsKtbkZcOCfw bGJyZHJiXGJyZHJzXGJy XVK9QVJbMdYvaqUpKSin bGJyZHJsXGJyZHJzXGJy SMR3QKTiIjUmoxSbMFpg bGJyZHJyXGJyZHJzXGJy FLL8GJJlEkPljiVoRLqp bHBhZHQxMFxjbHBhZGZ0 I6rtjXFrUNNrSMpzbMGx TPFzR8fmaBNmUTsqUKFg cGFkZmwzXGNscGFkYjBc M3dyFBAlWnEeU8EjaMf1 VgGhUBGcxjNrdR50Wgsq p2BzOVOxAIK1KEskWRns bFxwbGFpblxmMFxmczI0 XHBsYWluXGYxXGZzMjBc bGFuZzEwMzNcaGljaFxm AYybAzVuXEPjEAohQ5dl HzZiK9XzUJIoMyEsES2c UyM9RIWkGHRhBNItPUJL PoucHWHPKU0DG9YkANTe VVNTXHBsYWluXGYxXGZz MjBcbGFuZzEwMzNcaGlj aFxmMVxkYmNoXGYxXGxv U8dmEuNnF9CgRBHpBhVv kZCzB1krO8TzsXnkGFPl XGludGJsXHNzcGFyYWF1 nWBmdpMvmUxkvWtftF8o ZjBcZnMyNFxwbGFpblxm MVxmczIwXGxhbmcxMDMz FXvbO3nwGfBgDBXcwJkj UXhry4CzTFScWZOjYnzl czIwIDEyLzEzLzIwMjFc yIijmD5cEyIvPfYyRFei JP9rZOHfR4wmkESqAOSy GYOmX1nxEyGiuJ7tlKlb MVxjZjJcZnMyMFxsdHJj oJfzNQbcUEGghcCedG37 Xaprx1OwZZMiOJY3VHmz MFxxbFxwbGFpblxmMFxm stB5JITxSLxsUWOzZQFt MjBcbGFuZzEwMzNcaGlj aFxmMVxkYmNoXGYxXGxv I4wxZtPiD0KsKBPgJcHo JA8oOT2xVMSuLZTuJNim XGYxXGZzMjBcbGFuZzEw MzNcaGljaFxmMVxkYmNo QBPuFGnzS3rzEgZqL1Ka WONwGsMnkEFdI0ooT7Dy oZdxfbGabQhoq4ygtJGq ZPuxv3QfqhHfnXqyLACs XHFsXHBsYWluXGYwXGZz BvPdaUvrkD0vJaZjAhTp IQtgLC0qUJVgZ3nwoNIx LTVqUYGqY4zxDxTohG6a aFxmMVxmczIwXHBhcn0= Diagnosis (test code = d3ewtNWtEHHlkBH7OoVh 34) HOCyv9hih2BpnRQaoMMq EZdaySVbtgEttd74nVB7 gJ42DP8yAGJvNeV8SDYt nuJ0Lqc3AGSzGUIafCZa I008z0eqv4sngeSwyWJ5 KCFyUJNyR6NzFK1zQKAu aDUyP45ynNIcPJD2LGKb KEKamEZuFPQyAXC9ZXNy dNIfA6dlFARpSQ4tatpn UDbhRHvdGMUhoTO7TWDa wIQkA9WvZREmQIuxLZGw jfj8SrYiFj3nuKEajXge MFxwYXJkXHBsYWluXGZz WcOmT6UvEJl6sISwIZ5k ZGUgKGxlZnQgdXBwZXIg jhAmsjszIRU2F7rmpB4m QWgjWnjsqCY8NllgYVXz R0QlGMOcrolbpCdiFDck yS37HoUkZKwTPpAFVQOF QVJHRSBCLUNFTEwgTFlN UEhPTUEgKDcwLTgwJSkg ED9ULNITDNhBL0NZGYKo TFlNUEhPTUEsIEdSQURF BNKOJFdxCL0sUKBlEVFi xjpzOUCtDPgaIS5mz1Om MIJkXHzslgVyOIxrvh4l bmFsIGNlbnRlciBCLWNl tGjsuT4jrU7mfYyqkl33 tKSaPFNxTKYZjP44CnJt cyB+OTAtOTUlIFxwYXJc cGFyZFxwYXJ9 Comment (test code = h5zsrMCyCQHmqRF4OmRf 9835) UOJwk2ulz0RxqRGouCLz TAhqmHBdgzYkwz24hXJ4 vK28WG0qCBLoKiJ6XCBp fqY6Ibp2PDPcKSRrkADw H219c9fab9jibzLrbOO3 kVgqRGFhdgqwVgB2RDif XSFdezfbYUk3RAnjGCTu yEF4BYRtcXDkJ2YuAEXs TY0pnct5CLK1JIddSBPh TjT8YDMcnXZqSEJxsOeh UPxuk514BWQ7QmPbTSLi bbRdfYrsaE2vXdJnYKXJ kVK1s9odV1chIMLaL2Sj e46aKBYss1jreOzmzHhe fw0hCFEquoA3kIeykBM2 vYZxRQSiaHg8FWJ5tWLi BCxgOLHodE6phLZfw14c yVF8NXp9BXAhbAhoK8Mc WTB2WZm0rIAkt83lSpBn BX0slRGiZpJoPSKrHGZw IqT8yMBmulZkfLxan01u aGFzIGEgZGlmZnVzZSBw NRR4VWVqDDOjfPFlsCxo zeLwLLLuWILwz74wIp4o bGljdWxhciBhcmVhcyAo WiYtLeZyPQ9lEd41lRX9 aGUgZGlmZnVzZSBhbmQg Tq2wxEuisJukfeDhwmAz ieOpciZnF63ahO0lCZTb k2EtuEGuD0WrggIkkElr f9VpUkJnGXinjzH5iMCk VNBnCUO3dxWwDWQfdrKc c1LwJXG8pc6aWVVthSRy gP3izW94iSGcS3OkbTLe OEOaTJLgCRFiwtVoZS3c AH0kaY30wDUjUdvlvJQh tjVpsgDwBJHatJz2AXva VI39nLLuRVJrCMSnUBMu aWZmdXNlIGFyZWFzIHNo b9ayAKWlmJRvtuolq0x6 QPCvjNKqwf9hBGrilrSh bGluZSBXZSBoYXZlIHJl uaxhc5AuZOwhfTDyd9me y7YaB7ryrQcdAWfzm9M6 HXixxcAgLLLwk5EiWWKl TNkzEMnxGPJnHU2uSEXi oBVbg3KuA8rpXT9lWEZq DCBzUR5ueYMqiEpgOSKa jDndXOCyKBMjv7JsnBj8 KXOai8RlM1XaBSwqB5Ob EZtmT2R8CdLbr0Khozlv VEFKUMcfccHjr8ztUQdu QkNMXGVuZGFzaCAyIChz qXWixbktJMOLP6oxDK6t OSEgEGSaDN6fSA3BXYGi NILOYWzrHK0fIKVcRUMs DOjvwOj9MPEke8SmV3Tg LCBDRDUsIENEMjEsIENE EkBwNBGrEXBusWHfwG0n OIOiXCDvSHJqchEiYn1h kJLnvQGpmNBlHcQrc6Go W4SkLEQojC32szJru97m CFXqkZatX6NyCPPmUAUh ZHJpdGljIGNlbGwgbmV0 q49fc0Lpg8k2sCleTTBh TNXgz1ldmPS8xAGyHLPg hCRodoWgaLRnQpI8aMQi kzQvyMdpe25tWZPlWJSo kbBuBy3bnPEzzIJrkUEa IlUby6FsH9qbRcelt7jh x3WrCDKdfq6ccGLdejK4 lW4sKYLpySMdt4EbEJEa OTUlIGluIHRoZSBkaWZm dXNlIGFyZWFzIGFuZCBp obCjm26cPJ7eTJTiXFEw u8suaCF6mVYjNWCzSKTv LiAgXHBhclxwYXIgQWNj l1GbgA9vAWHcKIRzMPRs hRShjMI2RIEjknBnt9E0 SYRfleFerXB1KUb0PbGe BQa5JXUmg10jPP1uyZbf rASlr8wbd2UhUUVvJAFj mOlxSA3cw5JvGJZhIKsi YB2xW3N5lWLkLPBlfeXJ aNR4USxrJOSmPTVmpOEL UTAvPFGlfjPdJYPfU72s QATrDx7ERAtLGnHQST9d VGhpcyBzbGlkZSBoYXMg rs29NONvGW9yo9EkoCI1 nsZ6soPuw2XaxtQ5eZY1 VnzgdC8iINwbjsTdNVXf u9UemG0kNNZoUAGtANQn wLJbnGM9DMAymjZth5I2 WRWhzJ40QKI0nI4zMUEa rMKfcW89gx2pwKDvs7L3 lJjqUVJ9aCEpIHPrc5Vg WHRkHYNym5MlYIQeq54q NCChMFlaSCK1q0HqztEh x31hs0HdnNuyerMrmDQu xD9nhh4yMYfaCIWeu1Bt uACzd1lye3YfDVUpXBYy ddHzczQoCo8uPFeyXFVi wHWyOYQfv80rgO4dmSCw mrLjVh5pBQ9yew67rZZr MmGuOV8dHFWmCZ8wPTVZ NVQhVS4tEKAoeLLgx2Fd hHpwDvHtEpMvr2XokFkd JYR3MI49klLibmCanYsd LK7mSJjqXHjuxqQzzv14 WBAcQP0bc8TwkUKeYHJe uGYtPGUtZYUqv8ljY8a7 f58gyXB4IKXsnD2nfMQi c3MnzlB9kPQ5VzgarR7e XXtzouOkNLJni9QkoW7z IHRvIHRoZSBzdWJtaXR0 YJWlhpKmp3X9ATFyaXXh saOmU1FeE0MogI6rs6e7 eQMdcMKggWJbpdA4lW3x IChGSVNIKSBzdHVkaWVz YXnfpcWla5BxUVKmCJG4 anWev0Opa7UhFq0vHSig ZE8XE9asMQOjEVeySCLR TDJcaTAgIGFuZCBcaSBC E8f1TBgkXBIzQONmkuDh K5QnOQ95bc5sU7Ivg5oo sCJkTDF1AIV0GLWgW18o zHVqQzE9xVX4NOKkjH1m jO3wANGtxiacQWMvoXHg MDDfG1mloPFosZECbCEl K3HaSz39JLxtGIGSFFIf clxwYXJ9 Disclaimer (test code = m0kykHTjMQLiqAMyWjMy 9844) JFRmEROql2usBLHhfKZs ZzEwMzNcZnRuYmpcdWMx UEIiVyPiv3qaa062wFCi u7kmKZUqOkE7jIFzSAXg jHLaB960OZXrUFfvp8te n7UsUDQcnVBao6M0IXLC icwnjOa3jCysV11aq8S2 HhuoL1iwHCGySCUvP8Nv PD5xWNLyMzx9TSJ5INJ8 PLZxKTTmW5LeFQ4xRFQj hQHmJLh8n3owbBskZHMw TRI9r9ltDBopvjMsJG0j hn6eaSc3w1wisjAzUIBl TSJpkSRNQFZxJ6ChsExx Ap7dlEl2sSqrRqewYRI7 Vgy4GL3fpm98yyo3sWix KUVpruvdChW5IEseDOVh nsglEHy0ZIuvPJUqwEY9 EUCmlDAfB8LsUZQqUP7w rju4CPM5NNoxMCSpZjK7 NDBcaGVhZGVyeTcyMFxm o033VKL8BbWkSC9jG7Iv s0C3mC2dnGUnRXGfwOAj HbWcQYPoel5asIWcZPfz f4DjXJD9snB7zIXdiQNt DSZrWO69Etqeq7QwYinh ZGY1OXJytkPgy0Ngb2ms ZjHtheNsP4naS1ScIKYh GQQqDFVfZdWetzYnf3Yj q8SfcQCgpIq9s5uzQHHm VUKqfYhps3pgDDF5WBZj C0A0dTQjc7giKHwgACWg hIH3oeU8WBUelFXiU4Is mY6mWLKzFS2ydtv3f9xs EGV3GBjqWPDtGaE4alT1 NDBcaGVhZGVyeTcyMFxm f018SSX4PjMvMGXqx4Fp O7QrtNtiQ91dbGcaB31z HLWuqQybjT2wmAkzhI4b ZjBcZnMyNFxxbFxwbGFp whghXIzxclH7VBgeawqw LRJzBLxkB3djYnFhOTAw uZluPEqcy1LsAUSvDAFs NniicyK0WDLIa06jWHSp q3GyPDNvrV4lzOUeVIgc wzYhdVN2XNyifnFnEbJj rdMjLXLniC7kXYAcNZ7d WEPlaqXkjy0zuiGhKYBe MXDhS3VxkezpkXzqibKs PHAhke9aloDxPBJ1OGCM JT1ZVBQzCEAgx17yINEw gJppoH2xlRNljhKcBPVf e9ZimP1shMGAWKEoY3ob UV9fRVclv1SriRDblOXs fJN0RHVyf6GlXkByqbWx rLCgwJUkC0UpsQlsC8ms LUYpXOItlkLzrLMxt1Vq QUFdzYB9eNNeEO2SSqOT u29nOPRbPEKKynBaXGOx fEuxhCW8bjP3aP2oVrCN ZiBhcHBsaWNhYmxlLCBj k752xu5iclD0ZQKqVCDa wouwh9DzYNAnXAKtlM14 AVFgJRSyhm2zklyrrHGr tjVeJ7Mbfvd4tH8sVRDb YWluXGYxXGZzMjJcbGFu ZzEwMzNcaGljaFxmMVxk EuVtZJDoITvpY0giBgSj ZnMyMlxwYXJ9 [facility] [place] ([id number]) 2020-10-02 04:58:30 Test Item Value Reference Range Interpretation Comments NA (test code = 138 mmol/L 135-145 7746229568) K (test code = 3.9 mmol/L 3.5-5.0 8196494087) CL (test code = 102 mmol/L 98-108 6407833931) CO2 TOTAL (test code = 25 mmol/L 23-31 0629690067) AGAP (test code = 2-16 0692371575) BUN (test code = 20 mg/dL 7-23 9190803429) GLUCOSE (test code = 96 mg/dL 70-110 6610912254) CREATININE (test code = 0.56 mg/dL 0.50-1.04 2843037639) TOTAL BILI (test code = 0.8 mg/dL 0.1-1.8 8910677909) CALCIUM (test code = 10.2 mg/dL 8.6-10.6 5098274184) T PROTEIN (test code = 8.8 g/dL 6.3-8.2 H 3538790800) ALBUMIN (test code = 4.7 g/dL 3.5-5.0 9926574649) ALK PHOS (test code = 99 U/L 34-122 8215829602) ALTv (test code = 38 U/L 5-35 H 1742-6) AST(SGOT) (test code = 31 U/L 13-40 7535991431) eGFR (test code = mL/min/1.73m2 5293563595) SCOTT (test code = SCOTT) Association of [...] tests). Lab Interpretation Abnormal (test code = 67803-4) [facility] Test Item Value Reference Range Interpretation Comments LIPASE (test code = 9065668595) 243 U/L 0-220 H Lab Interpretation (test code = Abnormal 57508-1) [facility]44 Test Item Value Reference Range Interpretation Comments APPEARANCE (test code = Clear Clear 1044778125) COLOR (test code = Yellow Yellow 4104405807) PH (test code = 4.8-8.0 4019573424) SP GRAVITY (test code = 1.003-1.030 4967430488) GLU U QUAL (test code = Normal Normal 9204777033) BLOOD (test code = Negative Negative 8683750292) KETONES (test code = Negative Negative 5445200100) PROTEIN (test code = Negative Negative 2887-8) UROBILIN (test code = Normal Normal 0488885520) BILIRUBIN (test code = Negative Negative 5557492127) NITRITE (test code = Negative Negative 8766583615) LEUK BAILEY (test code = Negative Negative 7460517864) RBC/HPF (test code = See_Comment [Autom ated message] 2573568201) The system [employer] generated this result transmitted ref erence range: 0 - 3 HP F. The reference range was not used to int erpret this result as normal/abnormal . WBC/HPF (test code = See_Comment [Autom ated message] 1999198248) The system [employer] generated this result transmitted ref erence range: 0 - 5 HP F. The reference range was not used to int erpret this result as normal/abnormal . BACTERIA (test code = Negative Negative 0201753880) MUCOUS (test code = Slight Negative LPF A 9964268352) SQ EPITH (test code = HPF 2263427247) Lab Interpretation (test Abnormal code = 06375-9) [facility] WITH [id number] 04:45:31 Test Item Value Reference Range Interpretation Comments WBC (test code = See_Comment [Automated 6690-2) message] The sy stem which generated this result transmitted reference range : 4.30 - 11.10 10*3/?L. The reference range was not used to interpret this result as normal/abnormal . RBC (test code = See_Comment [Automated 979-8) message] The sy stem which generated this [...] (test code = 38.7 fL 39.0-49.9 L 10375-2) RDW-CV (test code = 12.9 % 12.0-15.5 788-0) PLT (test code = See_Comment [Automated 777-3) message] The sy stem which generated this result transmitted reference range : 166 - 358 10*3/ ?L. The reference r lenard was not used to interpret this result as normal/abnormal . MPV (test code = 9.4 fL 9.5-12.9 L 35217-8) NRBC/100 WBC (test See_Comment [Automat ed code = 0930355475) message] The system which generated this result transmitted reference range : 0.0 - 10.0 /100 WBCs. The refer ence range was not u sed to interpret th is result as normal/abnormal . NRBC x10^3 (test code <0.01 See_Comment [Auto mated = 7701110046) message] The s ystem which generated this result transmitted reference range : 10*3/?L. The reference range was not used to interpret this result as normal/abnormal . GRAN MAT (NEUT) % 52.7 % (test code = 770-8) IMM GRAN % (test code 0.20 % = 1773169899) LYMPH % (test code = 38.2 % 736-9) MONO % (test code = 7.6 % 5905-5) EOS % (test code = 1.0 % 713-8) BASO % (test code = 0.3 % 706-2) GRAN MAT x10^3(ANC) 3.33 10*3/uL 1.88-7.09 (test code = 4880970857) IMM GRAN x10^3 (test <0.03 0.00-0.06 code = 9352616075) LYMPH x10^3 (test code 2.41 10*3/uL 1.32-3.29 = 731-0) MONO x10^3 (test code 0.48 10*3/uL 0.33-0.92 = 742-7) EOS x10^3 (test code = 0.06 10*3/uL 0.03-0.39 711-2) BASO x10^3 (test code <0.03 0.01-0.07 = 704-7) Lab Interpretation Abnormal (test code = 06052-3) [facility]2020-07-20 00:25:44 Test Item Value Reference Range Interpretation Comments SARS-CoV-2 Rapid ID NOW Not Detected Not Detected (test code = 43373-8) SCOTT (test code = SCOTT) ID NOW COVID-19 Assay is an isothermal nucleic acid amplification test intended for the qualitative detection of nucleic acid from SARS-CoV-2 viral RNA in nasopharyngeal (FARM AGENT) specimens. It is used under Emergency Use [...] indicated. Lab Interpretation Normal (test code = 68947-8) [facility]. METABOLIC PANEL (93212)2020-07-19 22:47:37 Test Item Value Reference Range Interpretation Comments NA (test code = 139 mmol/L 135-145 0896541186) K (test code = 3.6 mmol/L 3.5-5.0 7352704213) CL (test code = 103 mmol/L 98-108 3368237082) CO2 TOTAL (test code = 27 mmol/L 23-31 1178891793) AGAP (test code = 2-16 4767209496) BUN (test code = 18 mg/dL 7-23 3066412118) GLUCOSE (test code = 98 mg/dL 70-110 5171312123) CREATININE (test code = 0.78 mg/dL 0.50-1.04 1352244592) TOTAL BILI (test code = 0.7 mg/dL 0.1-1.0 7481077533) CALCIUM (test code = 9.9 mg/dL 8.6-10.6 2795736436) T PROTEIN (test code = 7.4 g/dL 6.3-8.2 8302091901) ALBUMIN (test code = 4.3 g/dL 3.5-5.0 5857473237) ALK PHOS (test code = 97 U/L 34-122 8828076120) ALTv (test code = 39 U/L 5-35 H 1742-6) AST(SGOT) (test code = 32 U/L 13-40 1656204795) eGFR (test code = mL/min/1.73m2 0790432655) SCOTT (test code = SCOTT) Association of [...] tests). Lab Interpretation Abnormal (test code = 39454-7) [facility] [id number] 22:47:02 Test Item Value Reference Range Interpretation Comments APPEARANCE (test code = Clear Clear 6619281996) COLOR (test code = Yellow Yellow 6330545167) PH (test code = 4.8-8.0 5923388108) SP GRAVITY (test code = 1.003-1.030 0095790134) GLU U QUAL (test code = Normal Normal 9060874328) BLOOD (test code = Negative Negative 8743136957) KETONES (test code = Negative Negative 5477674128) PROTEIN (test code = Negative Negative 2887-8) UROBILIN (test code = Normal Normal 3994824350) BILIRUBIN (test code = Negative Negative 0062847735) NITRITE (test code = Negative Negative 1931725449) LEUK BAILEY (test code = Negative Negative 3685782546) RBC/HPF (test code = See_Comment [Autom ated message] 1091346956) The system [employer] generated this result transmitted ref erence range: 0 - 3 HP F. The reference range was not used to int erpret this result as normal/abnormal . WBC/HPF (test code = See_Comment [Autom ated message] 2132039051) The system [employer] generated this result transmitted ref erence range: 0 - 5 HP F. The reference range was not used to int erpret this result as normal/abnormal . BACTERIA (test code = Negative Negative 8917956754) MUCOUS (test code = Slight Negative LPF A 9758972377) SQ EPITH (test code = HPF 2725311851) Lab Interpretation (test Abnormal code = 41786-9) [facility] 22:46:57 Test Item Value Reference Range Interpretation Comments LIPASE (test code = 7776947422) 277 U/L 0-220 H Lab Interpretation (test code = Abnormal 13163-1) [facility] WITH [id number] 22:37:16 Test Item Value Reference Range Interpretation Comments WBC (test code = See_Comment [Automated 7990-2) message] The sy stem which generated this [...] (test code = 34.9 fL 39.0-49.9 L 34640-1) RDW-CV (test code = 12.0 % 12.0-15.5 788-0) PLT (test code = See_Comment [Automated 777-3) message] The sy stem which generated this result transmitted reference range : 166 - 358 10*3/ ?L. The reference r lenard was not used to interpret this result as normal/abnormal . MPV (test code = 9.7 fL 9.5-12.9 17122-2) NRBC/100 WBC (test See_Comment [Automat ed code = 6845386584) message] The system which generated this result transmitted reference range : 0.0 - 10.0 /100 WBCs. The refer ence range was not u sed to interpret th is result as normal/abnormal . NRBC x10^3 (test code <0.01 See_Comment [Auto mated = 8707458327) message] The s ystem which generated this result transmitted reference range : 10*3/?L. The reference range was not used to interpret this result as normal/abnormal . GRAN MAT (NEUT) % 47.2 % (test code = 770-8) IMM GRAN % (test code 0.40 % = 0329897260) LYMPH % (test code = 43.2 % 736-9) MONO % (test code = 7.5 % 5905-5) EOS % (test code = 1.2 % 713-8) BASO % (test code = 0.5 % 706-2) GRAN MAT x10^3(ANC) 2.69 10*3/uL 1.88-7.09 (test code = 5938501853) IMM GRAN x10^3 (test <0.03 0.00-0.06 code = 9503088816) LYMPH x10^3 (test code 2.46 10*3/uL 1.32-3.29 = 731-0) MONO x10^3 (test code 0.43 10*3/uL 0.33-0.92 = 742-7) EOS x10^3 (test code = 0.07 10*3/uL 0.03-0.39 711-2) BASO x10^3 (test code 0.03 10*3/uL 0.01-0.07 = 704-7) Lab Interpretation Abnormal (test code = 94854-2) [facility] PEL[facility] W [id number] 02:46:10Postsurgical changes with anastomoses sutures in the rightcolon.2. Fluid-filled loops of normal caliber mid and distal small bowel may be anonspecific enteritis.3. Previous hernia repair. No recurrent hernia.4. No hydronephrosis.5. No free fluid. RL: 4400AFC: [id number] END OF REPORT Ordering Physician: JOSE RODRIGUEZ [...] hernia.4. No hydronephrosis.5. No free fluid.RL: 4400AFC: [id number] OF REPORT [facility] 2019-03-29 01:12:00 Test Item Value Reference Range Interpretation Comments NA (test code = 140 mmol/L 135-145 2560200377) K (test code = 3.7 mmol/L 3.5-5 0735375108) CL (test code = 104 mmol/L 98-108 1223456506) CO2 TOTAL (test code = 26 mmol/L 23-31 3788612230) AGAP (test code = 2-16 0868560758) BUN (test code = 10 mg/dL 7-23 4577179033) GLUCOSE (test code = 99 mg/dL 70-110 8204499905) CREATININE (test code = 0.53 mg/dL 0.5-1.04 8289462774) TOTAL BILI (test code = 0.5 mg/dL 0.1-1.8 0633095644) CALCIUM (test code = 9.7 mg/dL 8.6-10.6 7640348497) T PROTEIN (test code = 8.8 g/dL 6.3-8.2 H 5318339371) ALBUMIN (test code = 4.6 g/dL 3.5-5 4620632391) ALK PHOS (test code = 126 U/L 34-122 H 5804564713) ALTv (test code = 63 U/L 5-35 H 1742-6) AST(SGOT) (test code = 45 U/L 13-40 H 9459935903) eGFR Calculation mL/min/1.73m2 (Non-) (test code = 7965549064) eGFR Calculation mL/min/1.73m2 () (test code = 1195107869) SCOTT (test code = SCOTT) Association of [...] tests). Lab Interpretation Abnormal (test code = 55833-8) [facility] Hospital[facility], [id number] 01:12:00 Test Item Value Reference Range Interpretation Comments LIPASE (test code = 1719577907) 166 U/L 0-220 Lab Interpretation (test code = Normal 52223-3) [facility] HospitalUrinalysis2020-01-26 01:09:00 Test Item Value Reference Range Interpretation Comments APPEARANCE (test code = Clear Clear 2071721047) COLOR (test code = Yellow Yellow 1060506872) PH (test code = 4.8-8.0 9784562273) SP GRAVITY (test code = 1.003-1.030 1996381112) GLU U QUAL (test code = Normal Normal 3659569193) BLOOD (test code = Negative Negative 1873704296) KETONES (test code = Negative Negative 5150251599) PROTEIN (test code = Negative Negative 2887-8) UROBILIN (test code = Normal Normal 1933453683) BILIRUBIN (test code = Negative Negative 9383491635) NITRITE (test code = Negative Negative 1782584915) LEUK BAILEY (test code = 25/uL Negative A 8017686142) RBC/HPF (test code = See_Comment [Autom ated message] 4208447871) The system [employer] generated this result transmitted ref erence range: 0 - 3 HP F. The reference range was not used to int erpret this result as normal/abnormal . WBC/HPF (test code = See_Comment [Autom ated message] 8993684879) The system [employer] generated this result transmitted ref erence range: 0 - 5 HP F. The reference range was not used to int erpret this result as normal/abnormal . BACTERIA (test code = Negative Negative 8313535901) MUCOUS (test code = Slight Negative LPF A 9340987668) SQ EPITH (test code = HPF 3435483587) Lab Interpretation (test Abnormal code = 67622-8) [facility] WITH [id number] 00:58:00 Test Item Value Reference Range Interpretation Comments WBC (test code = See_Comment [Automated 6690-2) message] The sy stem which generated this result transmitted reference range : 4.30 - 11.10 10*3/?L. The reference range was not used to interpret this result as normal/abnormal . RBC (test code = See_Comment [Automated 139-8) message] The sy stem which generated this [...] (test code = 35.2 fL 39-49.9 L 70870-1) RDW-CV (test code = 12.3 % 12-15.5 788-0) PLT (test code = See_Comment [Automated 777-3) message] The sy stem which generated this result transmitted reference range : 166 - 358 10*3/ ?L. The reference r lenard was not used to interpret this result as normal/abnormal . MPV (test code = 9.3 fL 9.5-12.9 L 36307-5) NRBC/100 WBC (test See_Comment [Automat ed code = 5415187351) message] The system which generated this result transmitted reference range : 0.0 - 10.0 /100 WBCs. The refer ence range was not u sed to interpret th is result as normal/abnormal . NRBC x10^3 (test code <0.01 See_Comment [Auto mated = 0602721096) message] The s ystem which generated this result transmitted reference range : 10*3/?L. The reference range was not used to interpret this result as normal/abnormal . GRAN MAT (NEUT) % 51.0 % (test code = 770-8) IMM GRAN % (test code 0.40 % = 5803956759) LYMPH % (test code = 38.3 % 736-9) MONO % (test code = 7.6 % 5905-5) EOS % (test code = 2.1 % 713-8) BASO % (test code = 0.6 % 706-2) GRAN MAT x10^3(ANC) 2.69 10*3/uL 1.88-7.09 (test code = 0198348599) IMM GRAN x10^3 (test <0.03 0-0.06 code = 2342421389) LYMPH x10^3 (test code 2.02 10*3/uL 1.32-3.29 = 731-0) MONO x10^3 (test code 0.40 10*3/uL 0.33-0.92 = 742-7) EOS x10^3 (test code = 0.11 10*3/uL 0.03-0.39 711-2) BASO x10^3 (test code 0.03 10*3/uL 0.01-0.07 = 704-7) Lab Interpretation Abnormal (test code = 59551-7) [facility] [id number] 00:48:00 Test Item Value Reference Range Interpretation Comments POCT PREG (test code = 1605) negative On board controls acceptable with present C Line (test code = 3574) POCT PREG LOT # (test code = 3575) [id number] POCT PREG TEST DATE (test 10/02/2019 code = 3576) Lab Interpretation (test code = Normal 34063-0) [facility] W/ [id number] 05:12:00 Test Item Value Reference Range Interpretation [...] SOURCE(BEAKER) (test code Urine, Clean Catch = 2794) SCREEN, [id number] 05:00:00 Test Item Value Reference Range Interpretation Comments TEST URINE (BEAKER) (test Negative code = 583) BASIC METABOLIC [id number] 03:20:00 Test Item Value Reference Range Interpretation [...] m DATA TO CALCULA TE ESTIMATED GFR. [id number] 03:08:00 Test Item Value Reference Range Interpretation Comments MAGNESIUM (BEAKER) 2.0 mg/dL 1.6-2.6 Specimen slightly (test code = 627) hemolyzed [id number] 03:08:00 Test Item Value Reference Range Interpretation Comments PHOSPHORUS (BEAKER) 2.6 mg/dL 2.3-4.7 Specimen slightly (test code = 604) hemolyzed HEPATIC FUNCTION [id number] 03:08:00 Test Item Value Reference Range Interpretation [...] 347) hemolyzed CBC W/PLT COUNT & AUTO [id number] 02:54:00 Test Item Value Reference Range Interpretation [...]
[2022-05-24] MEDS ORDERED: KETOROLAC 30 MG/ML INJ ONE (06:41)
[2022-05-24] MEDS ORDERED: dexAMETHasone 10 MG/ML VIAL ONE (06:41)
[2022-05-24] MEDS ORDERED: MORPHINE 4 MG/ML SYR ONE (06:41)
[2022-05-24 07:12] LABS: Potassium 3.8 mEq/L (3.5-5.1)
[2022-05-24 07:34] LABS: Absolute Lymphocytes (CBC) 0.4 K/uL (0.7-4.9); Hematocrit 38.1 % (36.0-45.0); Lymphocytes % 10.7 % (15.3-44.8); MCV 84.3 fL (80-100); MPV 6.5 fL (7.6-11.3); RBC Red Blood Cell Count 4.52 M/uL (3.86-4.86)
--- NOTE | 2022-05-24 07:54 | RAD REPORT ---
EXAM DESCRIPTION: CT - Spine Lumbar Wo Con - 05/24/2022 7:11 am CLINICAL HISTORY: Back pain PAIN COMPARISON: Spine Lumbar Wo Con dated 03/14/2021 TECHNIQUE: Axial noncontrast CT imaging of the lumbar spine performed, with coronal and sagittal re- formatted images. All CT scans are performed using dose optimization technique as appropriate and may include automated exposure control or mA/KV adjustment according to patient size. FINDINGS: No acute lumbar spine fracture seen. No aggressive marrow pattern or malalignment. Bilateral sacroiliac joint degenerative changes. Paraspinal tissues are normal in thickness. No paraspinal abscess or hematoma seen. Intervertebral disc disease assessment is inherently limited by CT. Within these limitations, no high -grade canal stenosis suspected. Sequelae of cholecystectomy. IMPRESSION: No acute abnormality of the lumbar spine.
[2022-05-24] MEDS ORDERED: LIDOCAINE 4% PATCH ONE (08:02)
[2022-05-24] MEDS ORDERED: ACETAMINOPHEN 500 MG TAB ONE (08:02)
[2022-05-24] MEDS ORDERED: Ringers Lactate 1,000 ML IV ONE (08:03)
--- NOTE | 2022-05-24 08:48 | EDPHYS ---
Physician Documentation [facility] Name: Maris Arias Age: 41 yrs Sex: Female : 1980 Arrival Date: 05/24/2022 Time: 06:04 Bed 8 Private MD: ED Physician Lc Gurrola HPI: 05/24 06:33 This 41 yrs old Female presents to ER via Wheelchair with complaints of Back rn Pain. 06:33 The patient presents with pain that is acute. The symptoms are located in the low back. rn Onset: The symptoms/episode began/occurred 3 day(s) ago. The pain does not radiate. Associated signs and symptoms: Pertinent positives: none nausea, Pertinent negatives: abdominal pain, chest pain, constipation, dysuria, fever, incontinence, urinary retention, weakness. Modifying factors: The patient symptoms are alleviated by nothing, the patient symptoms are aggravated by any movement, bending, coughing, standing, walking. Severity of symptoms: At their worst the symptoms were moderate, in the emergency department the symptoms are unchanged. The patient has experienced similar episodes in the past. The patient has not recently seen a physician. Pt reports low back pain, no injury, has hx of low back pain but worse over last 3 days. Also just had injection of Skyrizi for her crohn's disease. Has had same injection before and didn't cause back pain. No bowel/bladder abnormalities. No weakness of lower extremities. . 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 - Social history:: Smoking status: Patient denies any tobacco usage or history of. - Family history:: not pertinent. - Hospitalizations: : No recent hospitalization is reported. ROS: 06:33 Constitutional: Negative for fever, chills, and weight loss, Eyes: Negative for injury, rn pain, redness, and discharge, Neck: Negative for injury, pain, and swelling, Cardiovascular: Negative for chest pain, palpitations, and edema, Respiratory: Negative for shortness of breath, cough, wheezing, and pleuritic chest pain, Abdomen/GI: + nausea, neg for abd pain Back: + low back pain MS/Extremity: Negative for injury and deformity, Skin: Negative for injury, rash, and discoloration, Neuro: Negative for headache, weakness, numbness, tingling, and seizure. Exam: 06:36 Constitutional: This is a well developed, well nourished patient who is awake, alert, rn appears uncomfortable Head/Face: Normocephalic, atraumatic. Cardiovascular: Tachycardic, regular Respiratory: No increased work of breathing, no retractions or nasal flaring. Abdomen/GI: soft, non-tender Back: Mid lumbar perispinal tenderness, no pain with percussion of spine Skin: Warm, dry MS/ Extremity: Pulses equal, no cyanosis. Neurovascular intact. Full, normal range of motion. Equal circumference. Neuro: Awake and alert, GCS 15, oriented to person, place, time, and situation. Motor strength 5/5 in all extremities. Sensory grossly intact. Antalgic gait. Vital Signs: 06:27 BP 110 / 89; Pulse 127; Resp 14; Temp 97.7; Pulse Ox 96% ; Weight 92.99 kg; Height 5 vc1 ft. 2 in. ; Pain 9/10; 06:30 BP 113 / 73; Pulse 101; Resp 20 S; Pulse Ox 96% on R/A; ha1 08:00 BP 91 / 59; Pulse 82; Resp 15; Pulse Ox 93% ; bp 06:27 Body Mass Index 37.49 (92.99 kg, 157.48 cm) vc1 06:27 Pain Scale: Adult vc1 MDM: 06:08 Patient medically screened. rn 07:12 Transition of care: After a detail discussion of the patient's case, care is rn transferred to Lc Gurrola MD. 08:26 Differential diagnosis: arthritis, Fatigue Fracture Hydronephrosis Joint Injury jr11 Pyelonephritis. Data reviewed: vital signs, nurses notes. ED course: Patient is a 41-year-old with back pain, history of Crohn's, patient states that this time that she does not want a wait for urine, understands the risk of a missed infection including , there is shared decision making she wants to be discharged at this point. Unable to rule out any urinary tract infection. Patient understands this. Patient says she just wants to go home and rest. CT scan to my read, does not show any fractures. Prescription pain management not warranted at this time.. 05/24 08:29 Order name: Basic Metabolic Panel; Complete Time: 08:29 [facility] 05/24 08:29 Order name: CBC with Automated Diff EDCT 05/24 06:29 Order name: CT Lumbar Spine Wo Con rn 05/24 08:34 Order name: CT [facility] 05/24 06:29 Order name: IV Start; Complete Time: 08:06 rn Administered Medications: 06:52 Drug: Ketorolac IVP 15 mg Route: IVP; Site: right hand; vc1 08:06 Follow up: Response: No adverse reaction bp 06:52 Drug: Decadron - Dexamethasone IVP 10 mg Route: IVP; Site: right hand; vc1 08:06 Follow up: Response: No adverse reaction bp 06:53 Drug: morphine IVP or IV 4 mg Route: IVP; Infused Over: 4 mins; Site: right hand; vc1 08:06 Follow up: Response: No adverse reaction bp 08:00 Drug: Acetaminophen PO 1000 mg Route: PO; bp 08:00 Drug: Lidoderm Topical Patch 5 % (700 mg/patch) 1 patches Route: Topical; Site: bp affected area; 08:00 Drug: Lactated Ringers Solution IV 1000 ml Route: IV; Rate: 1000 bolus; Site: right bp hand; Disposition Summary: 05/24/22 08:28 Discharge Ordered Location: Home [facility] Condition: Stable jr Diagnosis - Low back pain [facility] Followup: jr11 - With: Private Physician - When: 1 - 2 days - Reason: Recheck today's complaints Discharge Instructions: - Discharge Summary Sheet jr11 - Acute Back Pain, Adult jr11 Forms: - Medication Reconciliation Form jr11 - Thank You Letter jr11 - Antibiotic Education jr11 - Prescription Opioid Use jr11 Prescriptions: - Ibuprofen 600 mg Oral Tablet - take 1 tablet by ORAL route every 6 hours As needed take with food; 30 tablet; jr11 Refills: 0, Product Selection Permitted - methocarbamol 750 mg Oral Tablet - take 2 tablets by ORAL route 3 times per day prn back spasms; 20 tablet; jr11 Refills: 0, Product Selection Permitted Signatures: Dispatcher [employer] Chris Reynolds MD MD rn Tobias Ceja RN RN bp Angelique Burnham RN RN vc1 Lc Gurrola MD MD jr11
--- NOTE | 2022-05-24 08:48 | ER ---
Nurse's Notes [facility] Name: Maris Arias Age: 41 yrs Sex: Female : 1980 Arrival Date: 05/24/2022 Time: 06:04 Bed 8 Private MD: Diagnosis: Low back pain Presentation: 05/24 06:26 Chief complaint:. vc1 06:27 Chief complaint: Patient states: "My back has been hurting since Saturday. Its to the 1 point where it hurts to stand or move". Coronavirus screen: Vaccine status: Patient reports receiving the 2nd dose of the covid vaccine. 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 Ebola Screen: Patient negative for fever greater than or equal to 101.5 degrees Fahrenheit, and additional compatible Ebola Virus Disease symptoms Patient denies exposure to infectious person. Patient denies travel to an Ebola-affected area in the 21 days before illness onset. No symptoms or risks identified at this time. Initial Sepsis Screen: Does the patient meet any 2 criteria? No. Patient's initial sepsis screen is negative. Does the patient have a suspected source of infection? No. Patient's initial sepsis screen is negative. Risk Assessment: Do you want to hurt yourself or someone else? Patient reports no desire to harm self or others. Onset of symptoms was May 21, 2022. 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 - Social history:: Smoking status: Patient denies any tobacco usage or history of. - Family history:: not pertinent. - Hospitalizations: : No recent hospitalization is reported. Screenin:29 Abuse screen: Denies threats or abuse. Nutritional screening: No deficits noted. vc1 Tuberculosis screening: No symptoms or risk factors identified. 07:00 [facility] ED Fall Risk Assessment (Adult) History of falling in the last 3 months, bp including since admission No falls in past 3 months (0 pts). Assessment: 06:15 General: Appears uncomfortable, Behavior is cooperative. Pain: Complains of pain in ha1 lower back Pain currently is 10 out of 10 on a pain scale. Quality of pain is described as throbbing, Is continuous, Alleviated by medications. Neuro: Level of Consciousness is awake, alert, obeys commands, Oriented to person, place, time, situation. Cardiovascular: Capillary refill < 3 seconds Patient's skin is warm and dry. Respiratory: Airway is patent Respiratory effort is even, unlabored, Respiratory pattern is regular, symmetrical. GI: No signs and/or symptoms were reported involving the gastrointestinal system. Abdomen is non-distended, obese. : No signs and/or symptoms were reported regarding the genitourinary system. EENT: No signs and/or symptoms were reported regarding the EENT system. Derm: Skin is pink, warm \\T\\ dry. Musculoskeletal: Circulation, motion, and sensation intact. Range of motion: intact in all extremities, Reports pain in lower back. 07:00 Reassessment: RECD REPORT FROM BERKLEY FELIX. 41YO WF P/W LUMBAR PAIN. CT RESULTS PENDING. bp Vital Signs: 06:27 BP 110 / 89; Pulse 127; Resp 14; Temp 97.7; Pulse Ox 96% ; Weight 92.99 kg; Height 5 vc1 ft. 2 in. ; Pain 9/10; 06:30 BP 113 / 73; Pulse 101; Resp 20 S; Pulse Ox 96% on R/A; ha1 08:00 BP 91 / 59; Pulse 82; Resp 15; Pulse Ox 93% ; bp 06:27 Body Mass Index 37.49 (92.99 kg, 157.48 cm) vc1 06:27 Pain Scale: Adult vc1 ED Course: 06:04 Patient arrived in ED. es 06:08 Chris Nava MD is Attending Physician. rn 06:20 Berkley Moreno RN is Primary Nurse. ha1 06:28 Triage completed. vc1 06:29 Arm band placed on right wrist. vc1 07:30 Inserted saline lock: 24 gauge in right hand, using aseptic technique. Blood collected. bp 07:38 Attending Physician role handed off by Chris Nava MD [email or web address] 07:38 Lc Gurrola MD is Attending Physician. [email or web address] 07:46 Primary Nurse role handed off by Berkley Moreno RN bp 07:46 Tobias Ceja, RN is Primary Nurse. bp 08:00 Patient has correct armband on for positive identification. Bed in low position. Call bp light in reach. Side rails up X2. 08:46 No provider procedures requiring assistance completed. IV discontinued, intact, jl7 bleeding controlled, No redness/swelling at site. Pressure dressing applied. 09:13 CT In Process Unspecified. EDMS Administered Medications: 06:52 Drug: Ketorolac IVP 15 mg Route: IVP; Site: right hand; vc1 08:06 Follow up: Response: No adverse reaction bp 06:52 Drug: Decadron - Dexamethasone IVP 10 mg Route: IVP; Site: right hand; vc1 08:06 Follow up: Response: No adverse reaction bp 06:53 Drug: morphine IVP or IV 4 mg Route: IVP; Infused Over: 4 mins; Site: right hand; vc1 08:06 Follow up: Response: No adverse reaction bp 08:00 Drug: Acetaminophen PO 1000 mg Route: PO; bp 08:00 Drug: Lidoderm Topical Patch 5 % (700 mg/patch) 1 patches Route: Topical; Site: bp affected area; 08:00 Drug: Lactated Ringers Solution IV 1000 ml Route: IV; Rate: 1000 bolus; Site: right bp hand; Medication: 06:30 VIS not applicable for this client. vc1 Outcome: 08:28 Discharge ordered by MD. granda 08:46 Discharged to home ambulatory. jl7 08:46 Condition: stable 08:46 Discharge instructions given to patient, Instructed on discharge instructions, follow up and referral plans. medication usage, Demonstrated understanding of instructions, follow-up care, medications, Prescriptions given X 2. 08:47 Patient left the ED. jl7 Signatures: Dispatcher [employer] EDMS Elena Cline Roman, MD MD rn Leal, Jahala, RN RN jl7 Tobias Ceja RN RN bp Angelique Burnham RN RN vc1 Lc Gurrola MD MD [id number] Berkley Moreno, ELVIRA RN ha1
[2022-05-24 14:56] VITALS: TEMP 97.7
[2022-05-24 14:58] VITALS: BP 91/59; O2SAT 93
== END 2022-05-24 08:47 | disposition home or self-care (01) ==
LOC: ER 05:57
DX: M54.50 Low back pain, unspecified (principal); K50.90 Crohn's disease, unspecified, without complications; F32.A Depression, unspecified; C85.90 Non-Hodgkin lymphoma, unspecified, unspecified site; G62.9 Polyneuropathy, unspecified
CPT/HCPCS: 85025; 80048; 36415; 72131; J2001; J1100; J7120

== ENCOUNTER 2023-07-02 09:44 | Emergency (ER) | payer OTHER, BC ==
--- OUTSIDE RECORDS SUMMARY | 2023-07-02 09:47 | XMS REPORT | Clinical Summary ---
Author Name Unknown Organization [facility] Address [address] [place] [address] Care Team Providers Care Motor Analyst Name Role Phone Juwan Guerrero MD Primary Care Provider Unav ailable Social History Tobacco Use Types Packs/Day Years Used Date Smoking Tobacco: Never Assessed Sex and Gender Information Value Date Recorded Sex Assigned at Female 02/20/2021 6:08 PM ORGANIZATIONAL CONSULTANT Gender Identity Female 02/20/2021 6:08 PM ORGANIZATIONAL CONSULTANT Sexual Orientation Not on file Job Start Date Occupation Industry Not on file Not on file Not on file Plan of Treatment Health Maintenance Due Date Last Done Comments COVID-19 Vaccine (#1) 02/22/1980 Influenza Vaccine 11/02/2022 02/17/2014 Care Teams Motor Analyst Relationship Specialty Start Date End Date Juwan Guerrero MD PCP - General Lymphoma and Myeloma 02/21/21
[2023-07-02] MEDS ORDERED: NA CHLORIDE 0.9% 500 ML ONE (10:31)
[2023-07-02 11:04] LABS: Absolute Eosinophils 0.1 K/uL (0-0.5); Absolute Lymphocytes (CBC) 1.3 K/uL (0.7-4.9); Absolute Monocytes 0.3 K/uL (0.1-1.3); Absolute Neutrophil 1.9 K/uL (1.8-8.0); Basophils % 0.7 % (0-1.3); Eosinophils % 1.5 % (0-4.4); Hematocrit 40.4 % (36.0-45.0); Hemoglobin 13.7 g/dL (12.0-15.0); Lymphocytes % 37.3 % (15.3-44.8); MCH 29.3 pg (27.0-35.0); MCHC 33.9 g/dL (32.0-36.0); MCV 86.4 fL (80-100); MPV 7.1 fL (7.6-11.3); Monocytes % 8.1 % (3.3-12.3); Neutrophils % 52.4 % (41.7-73.7); Nucleated Red Blood Cells % 0.1 % (0-0); Platelets 197 thou/uL (152-406); RBC Red Blood Cell Count 4.68 M/uL (3.86-4.86); Red Cell Distribution Width 12.5 % (12.1-15.2)
[2023-07-02 11:08] LABS: Specific Gravity 1.019 (1.005-1.030); Urine Bilirubin NEGATIVE (Negative); Urine Blood Negative (Negative); Urine Clarity Clear (Clear); Urine Color Yellow (Yellow); Urine Glucose NEGATIVE (Negative); Urine Ketones NEGATIVE (Negative); Urine Microscopic Reflex YN NO UMIC; Urine Nitrite NEGATIVE (Negative); Urine Protein NEGATIVE (Negative); Urine Urobilinogen Normal (Normal)
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
[2023-07-02 11:24] LABS: Albumin 3.6 g/dL (3.4-5.0); Albumin/Globulin Ratio 0.9 (1.1-1.8); Anion Gap 6.5 mEq/L (5.0-15.0); Bilirubin Total 1.2 mg/dL (0.2-1.0); Globulin 3.8 g/dL (2.3-3.5); Potassium 3.5 mEq/L (3.5-5.1); Protein, Total 7.4 g/dL (6.4-8.2)
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
[2023-07-02] MEDS ORDERED: ONDANSETRON 4 MG/2 ML VIAL ONE (11:44)
[2023-07-02] MEDS ORDERED: MORPHINE 4 MG/ML SYR ONE (11:45)
[2023-07-02 12:32] VITALS: BP 114/85; TEMP 97.4; O2SAT 100
== END 2023-07-02 11:59 | disposition home or self-care (01) ==
LOC: ER 09:44
DX: R10.812 Left upper quadrant abdominal tenderness (principal); R74.01 Elevation of levels of liver transaminase levels; V49.9XXA Car occupant (driver) (passenger) injured in unspecified traffic accident, initial encounter
CPT/HCPCS: 85025; 36415; 81003; 80053; 70450; 72125; 71260; 74177; 96375; 96374; 99284; Q9967; J2405; J7040

== ENCOUNTER 2024-12-13 08:57 | Emergency (ER) | payer BC ==
--- OUTSIDE RECORDS SUMMARY | 2024-12-13 09:00 | XMS REPORT | Clinical Summary ---
Author Name Unknown Organization 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
--- NOTE | 2024-12-13 10:35 | RAD REPORT ---
EXAM: Extremity Nonvascular Complete HISTORY: PAIN COMPARISON: None TECHNIQUE: Sonographic grayscale and color flow imaging of the posterior left thigh region including the region of interest as described by the patient. FINDINGS: No suspicious mass or cyst is identified. No unusual fluid collection.
--- NOTE | 2024-12-13 10:59 | RAD REPORT ---
EXAMINATION: XR LEFT FEMUR CLINICAL INDICATION: . PAIN TECHNIQUE: Multiple views of the left femur were obtained. COMPARISON: No prior exam. FINDINGS: No bone or joint abnormality detected.
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
[2024-12-13] MEDS ORDERED: predniSONE 20 MG TAB ONE (11:31)
[2024-12-13 17:08] VITALS: TEMP 97.5
[2024-12-13 17:09] VITALS: O2SAT 98
[2024-12-13 17:11] VITALS: BP 129/83
== END 2024-12-13 11:40 | disposition home or self-care (01) ==
LOC: ER 08:57
DX: M79.652 Pain in left thigh (principal)
CPT/HCPCS: 73552; 76881; 99284; J7512